=== PATIENT | female | born 1950 | race Caucasian/White ===

== ENCOUNTER 2020-04-23 21:49 | Emergency (ER) | payer BC, SELFPAY ==
[2020-04-23 21:50] VITALS: BP 128/68; PULSE 90; RESP 16; TEMP 36.6; O2SAT 99; BMI 27.7
--- NOTE | 2020-04-23 21:51 | ED.RN ---
family member phone # for updates [phone]
--- NOTE | 2020-04-23 22:13 | ED.VIS.GEN ---
History of Present Illness Chief Complaint: General Illness Informant: Patient Onset: Hours - 24-36 Context: Gradual Onset Timing: Continuous Quality: achy Location: across low back and both hips, some lower abd Current Severity: Moderate Maximum Severity: Severe Worsened by: movement Relieved by: remaining still Associated Symptoms: R ankle pain. stiffness in neck. Narrative: Patient states for about 24 hours plus or minus she has had bloating in her abdomen, started with nausea and throwing up after eating [employer] food, she states her daughter ate it as well and she is okay, she then developed this discomfort across her low back in her lower abdomen that seems to be getting worse, in addition to spontaneous onset, gradually of pain in her right ankle which has been chronically sore and swollen since she fractured it remotely but now it is worse, as well as soreness and stiffness in her neck. She denies any injury. No fevers or chills. She is only had 1 bout of diarrhea, she has had no other bowel movements not. Time, she denies any blood or melena. She denies any hematemesis. She states she does not have abdominal pain is much as she does bloating. She was treated for urinary tract infection with 2 antibiotics that she did that she cannot remember several weeks ago, she states the symptoms that she had were bilateral lower abdominal pain worse on the right, she denies having any urinary symptoms that time, states that she was seen at the [facility] ER for that. Past Medical History - Allergies and Home Meds Allergies/Adverse Reactions: Allergies No Known Allergies Allergy (Verified 04/23/20 21:51) Primary Care Physician: NOT,DEFINED [NON-STAFF] - Review of Systems General: Denies: Chills, Fever, Sweats Eyes: Denies: Visual changes - bilaterally, Diplopia ENT: Denies: Bilateral ear pain, Rhinorrhea, Sore throat Cardiovascular: Denies: Chest pain, Palpitations Respiratory: Denies: Dyspnea, Cough, Dyspnea on exertion Gastrointestinal: Reports: Abdominal pain - and bloating, Nausea, Vomiting, Diarrhea - x1; no other BMs. Denies: Melena, Hematochezia Genitourinary: Denies: Dysuria, Hematuria, Frequency Musculoskeletal: Reports: Neck pain - sore and stiff, Back pain - low bilat, Extremity Pain - R ankle Skin: Denies: Rash, Wounds Neurological: Denies: Headache, Weakness, Numbness Physical Exam Vital Signs/Narrative: Vital Signs Temp Pulse Resp BP Pulse Ox 04/23/20 21:50 97.9 F 90 16 128/68 H 99 Inital Vital Signs reviewed: Yes General: Well nourished, Well developed, No Acute Distress Head: Normocephalic, Atraumatic Eyes: Perrl, EOMI ENT: Moist mucous membranes, No rhinorrhea Neck: Supple - able to range about 45 deg bilat rotation, limited due to pain, no meningismus., Nontender, No lymphadenopathy Cardiovascular: Regular rate, Regular rhythm, No murmurs Respiratory: No distress, CTA bilaterally, Chest nontender Abdomen: Soft, Nontender, Nondistended, Normal bowel sounds, No masses. Negative for: Pulsatile mass Back: Normal Inspection, - - miold diffuse bilat buttock, piriformis, pelvic brim tenderness. Negative for: CVA tenderness, Spinal tenderness Extremities: Nontender, No edema, - - painful ROM R ankle, able to move it OK. slightly warm compared w/ contralat side, no erythema. mildly swollen R ankle, pt states this is baseline for it chronically since she fx'd it remotely. Skin: Normal color, No rash Neurological: Alert, Oriented x3, Cranial nerves II-XII grossly intact, Normal Strength, Normal Sensation Psychological: Normal affect, Normal Mood Diagnostic/Tx/Re-eval Laboratory Results 04/23/20 04/23/20 04/23/20 22:30 22:30 23:45 WBC 12.1 H RBC 4.22 Hgb 12.1 Hct 37.7 MCV 89.3 MCH 28.7 MCHC 32.1 RDW Std Deviation 48.0 H RDW Coeff of Kristine 14.9 H Plt Count 166 MPV 11.1 Immature Gran % (Auto) 0.500 Neut % (Auto) 90.6 H Lymph % (Auto) 5.7 L Pershing % (Auto) 2.4 Eos % (Auto) 0.3 Baso % (Auto) 0.5 Absolute Neuts (auto) 10.9 H Absolute Lymphs (auto) 0.69 L Nucleated RBC % 0 Sodium 140 Potassium 3.4 L Chloride 108 H Carbon Dioxide 24.0 Anion Gap 8 BUN 28 H Creatinine 1.30 H Estim Creat Clear Calc 28.92 Est GFR (MDRD) Af Amer 52 L Est GFR (MDRD) Non-Af 43 L BUN/Creatinine Ratio 21.5 H Glucose 109 H Uric Acid 5.4 Calcium 9.0 Total Bilirubin 0.60 AST 35 ALT 51 Alkaline Phosphatase 108 Total Protein 7.3 Albumin 3.3 Globulin 4.0 Albumin/Globulin Ratio 0.8 L Urine Color Yellow Urine Clarity Sl. Cloudy Urine pH 6.5 Ur Specific Blakeslee 1.010 Urine Protein 30 H Urine Glucose (UA) Normal Urine Ketones Negative Urine Occult Blood 50 H Urine Nitrite Positive H Urine Bilirubin Negative Urine Urobilinogen 1 H Ur Leukocyte Esterase 500 H Urine RBC 0-5 SEEN Urine WBC 25-50 SEEN Ur Squamous Epith Cells 0 SEEN Amorphous Sediment 1+ Urine Bacteria 1+ Urine Mucus 0 SEEN - Medical Decision Making Very odd that the patient has low back/bilateral hip pain as well as abdominal bloating, some vomiting, and some arthralgias. Foodborne illness is in the differential diagnosis, but unlikely here since she has only had one episode of mild diarrhea, and since her daughter did not have symptoms. Also could consider a reaction to MSG, but she has had [employer] food in the past without reaction. She was given Toradol, small dose, the right ankle and neck pain seems inflammatory but she has no findings of a septic arthritis clinically, and the Toradol did help the pain and she was able to move better. Gout is in the differential diagnosis although less likely, she did not have significant clinical findings of that, but she did just have 1 major joint affected. Her uric acid is within normal limits, this does not rule it out, but I still think it is less likely. There is a mild leukocytosis. Eventually we were able to get the patient to urinate, and it is very positive for infection. Certainly this has to be related to some of her symptoms, likely her lower abdominal symptoms. She is not clinically septic and her vital signs are normal. Urine is cultured and will place her on antibiotics for the next week. I am also going to prescribe her a wait and see prescription for prednisone, just a 5-day burst. If the antibiotic and time do not help her pains, then I recommend trying the prednisone, but I did advise her that putting her on a steroid oral anti-inflammatory does suppress the immune system, which I prefer not to do while she has an acute infection if possible. She understands, she was given a prescription and advised to follow-up closely. ED Disposition - Plan for ED Patient: Disposition: Home or Assisted Living Diagnosis: Urinary tract infection, Arthritis of right ankle Instructions: ED Bladder Infection, Female (Adult), ED Arthralgia Prescriptions: Smz/Tmp Ds [Bactrim Ds] 1 tab PO BID #14 tab Prescription Printed Prednisone [Deltasone] 40 mg PO DAILY #10 tab Prescription Printed Referrals: Doctor,Your [STAFF PHYSICIAN] - 3-5 Days (to reevaluate and review culture results to ensure you are on appropriate antibiotic for this infection) Additional Instructions: Take the antibiotic first. You may try Tylenol and an occasional dose of ibuprofen for your pains. If you continue to have severe pains, you may fill and take the prednisone prescription. Once you start it, take it until it is gone. It can suppress your immune system temporarily, so only use it if you feel you need it.
[2020-04-23] MEDS: Ondansetron 4 MG/2 ML Vial IV (22:28)
[2020-04-23] MEDS: Dicyclomine 10 MG Capsule 20 MG PO (22:28)
[2020-04-23] MEDS: Ketorolac 15 MG/ML Vial IV (22:28)
[2020-04-23 22:41] LABS: Absolute Lymphocyte Count 0.69 X10^3/uL (0.83-4.51); Absolute Neutrophil Count 10.9 X10^3/uL (2.0-7.7); Basophil# 0.06 X10^3/uL; Basophil% 0.5 % (0-1); Eosinophil# 0.04 X10^3/uL; Eosinophils% 0.3 % (0-5); Hematocrit 37.7 % (37-47); Hemoglobin 12.1 g/dL (12.0-15.0); Lymphocyte # 0.69 X10^3/ul (4.0); Lymphocyte % 5.7 % (19-41); Mean Corp Hgb Conc 32.1 g/dL (32-36); Mean Corpuscular Hgb 28.7 pg (27.0-32.0); Mean Corpuscular Volume 89.3 fL (81-99); Mean Platelet Vol. 11.1 fl (6.2-12.0); Monocyte# 0.29 X10^3/uL; Monocyte% 2.4 % (0-10); NRBC Flagged by Analyzer 0 % (0-5); Neutrophil # 10.94 X10^3/uL (2.7-7.7); Neutrophil % 90.6 % (47-70); Platelet Count 166 K/mm3 (150-450); RBC Distribution Width CV 14.9 % (11.6-14.6); Red Blood Count 4.22 M/mm3 (4.2-5.4); White Blood Count 12.1 K/mm3 (4.4-11.0)
[2020-04-23 23:01] LABS: ALB/GLOB Ratio 0.8 RATIO (0.9-2.4); AST(SGOT) 35 U/L (15-37); Alanine Aminotransfer ALT/SGPT 51 U/L (13-56); Albumin, Serum 3.3 g/dL (3.2-5.0); Alkaline Phosphatase 108 U/L (45-117); Anion Gap 8 (5-15); BUN 28 mg/dL (7-18); BUN/Creat Ratio 21.5 RATIO (10-20); Chloride 108 mmol/L (98-107); EST Glomerular Filtration Rate 43 mL/min (>60); Est Glom Filt Rate - Afr Amer 52 mL/min (>60); Estimated Creatinine Clearance 28.92 ml/min; Glucose 109 mg/dL (74-106); Potassium 3.4 mmol/L (3.5-5.1); Protein, Total 7.3 g/dL (6.4-8.2); Sodium Level 140 mmol/L (136-145); Uric Acid 5.4 mg/dL (2.6-6.0)
[2020-04-23 23:55] LABS: Color, Urine Yellow (Yellow); Glucose, Dipstick Normal (Normal); Ketone-Dipstick Negative (Negative); Leukocyte Esterase-Dipstick 500 /ul (Negative); Mucous, Urine 0 SEEN /hpf (<or=2+); Nitrite-Dipstick Positive (Negative); Occult Blood-Urine 50 /ul (Negative); Protein-Dipstick 30 mg/dl (Negative); Squamous Epithelial Cells - UA 0 SEEN /hpf (5-10); Urine Bilirubin Dipstick Negative (Negative); Urine Clarity Sl. Cloudy (Clear); Urine Urobilinogen 1 mg/dl (Normal); Urine pH 6.5 (5.0 - 8.0)
[2020-04-24 00:25] LABS: White Blood Cells 25-50 SEEN /hpf (0-5)
[2020-04-24 00:26] LABS: Amorphous Sediment 1+; Bacteria 1+ /hpf (None Seen); Red Blood Cells-Urine 0-5 SEEN /hpf (0-5)
[2020-04-24] MEDS: Smz/Tmp Ds Tablet 1 TABLET PO (01:00)
[2020-04-24 01:28] VITALS: RESP 16
== END 2020-04-24 01:38 | disposition home or self-care (01) ==
PROVIDERS: Emergency Provider Emergency Medicine
DX: N39.0 Urinary tract infection, site not specified (principal); M19.071 Primary osteoarthritis, right ankle and foot; M43.6 Torticollis; R11.2 Nausea with vomiting, unspecified; R19.7 Diarrhea, unspecified
CPT/HCPCS: 80053; 81001; 84550; 85025; 87077; 87086; 87088; 87186; 96361; 96374; 96375; 99284; J7040; A4216; J2405

== ENCOUNTER 2020-04-30 23:57 | Inpatient (IN) | payer BC, MEDICARE, SELFPAY ==
[2020-04-30 23:59] VITALS: BP 137/79; PULSE 95; RESP 16; TEMP 37.4; O2SAT 99; BMI 25.4
[2020-05-01] VITALS (7 sets, daily range): BP systolic 132–144; BP diastolic 65–80; PULSE 68–96; RESP 16–18; TEMP 36.3–37.8; O2SAT 96–97; BMI 28.0
--- NOTE | 2020-05-01 00:14 | ED.DCSUM_ITS ---
History of Present Illness Chief Complaint: Lower Extremity Injury Informant: Patient Onset: 11-28 Context: Gradual Onset Timing: Continuous Quality: ache Location: R ankle Current Severity: Moderate Maximum Severity: Severe Worsened by: movement, trying to WB Relieved by: remaining still Associated Symptoms: none. see below. Narrative: Patient was seen here last week for right ankle pain in addition to other complaints, she was treated for urinary tract infection, she returns for worsening right ankle pain. She states all of the other symptoms are resolved with the antibiotic she was prescribed, except when she walks and has pains in her legs, sometimes she gets a spasm of pain in her low back but it is short- lived. Additionally, she has edema in both of her lower extremities now which she did not have before, specifically the left 1. She states now she is unable to walk because of all of this, so presented by EMS tonight as a result. She denies fevers or chills or feeling poorly generally, her abdominal pain that she had is resolved after taking antibiotic, and she has no more neck stiffness that she complained of before. She takes no anticoagulants or any other prescription medications at this time. She injured this right ankle long ago, fracturing it, she had some hardware, it was subsequently removed and that was all remotely. She has had some chronic issues with this ankle since then, but not to this extent. Past Medical History - Allergies and Home Meds Allergies/Adverse Reactions: Allergies No Known Allergies Allergy (Verified 05/01/20 00:11) Primary Care Physician: Care Physician,No Primary [Primary Care Provider] - Past Medical History: None Surgical History: - - R ankle ORIF and subsequent hardware removal Lives: With Family Smoking Status: Former smoker Review of Systems General: Denies: Chills, Fever, Malaise, Sweats Eyes: Denies: Visual changes - bilaterally, Diplopia ENT: Denies: Rhinorrhea, Sore throat Cardiovascular: Denies: Chest pain, Palpitations Respiratory: Denies: Dyspnea, Cough, Dyspnea on exertion Gastrointestinal: Denies: Abdominal pain, Nausea, Vomiting, Diarrhea, Melena, Hematochezia Genitourinary: Denies: Dysuria, Hematuria, Frequency Musculoskeletal: Reports: Back pain - intermittent, Swelling, Extremity Pain Skin: Denies: Rash, Wounds Neurological: Denies: Headache, Weakness, Numbness Physical Exam Vital Signs/Narrative: Vital Signs Temp Pulse Resp BP Pulse Ox 04/30/20 23:59 99.4 F H 95 16 137/79 H 99 Inital Vital Signs reviewed: Yes General: Well nourished, Well developed, No Acute Distress Head: Normocephalic, Atraumatic Eyes: Perrl, EOMI ENT: Moist mucous membranes, No rhinorrhea Neck: Supple, Nontender Cardiovascular: Regular rate, Regular rhythm, No murmurs. Negative for: Tachycardia Respiratory: No distress, CTA bilaterally, Chest nontender Abdomen: Soft, Nontender, Nondistended, Normal bowel sounds Back: Nontender, Normal Inspection Extremities: Tenderness - R ankle, Edema - 2+ BLE to prox shins, symmetric although a little worse around R ankle, - - Severe pain with any attempted movement of the right ankle. In no distress when resting. Excellent range of motion of all other joints of all 4 extremities. Skin: Rash - Erythema that is mild, blanching, around the right ankle which is new compared with last visit. More warm than the surrounding leg and foot. Neurological: Alert, Oriented x3, Cranial nerves II-XII grossly intact, Normal Strength, Normal Sensation Psychological: Normal affect, Normal Mood Diagnostic/Tx/Re-eval Laboratory Tests 05/01/20 05/01/20 05/01/20 Range/Units 01:10 00:26 00:26 WBC (4.4-11.0) K/mm3 RBC (4.2-5.4) M/mm3 Hgb (12.0-15.0) g/dL Hct (37-47) % MCV (81-99) fL MCH (27.0-32.0) pg MCHC (32-36) g/dL RDW Std Deviation (35.1-43.9) fl RDW Coeff of Kristine (11.6-14.6) % Plt Count (150-450) K/mm3 MPV (6.2-12.0) fl Immature Gran % (Auto) Neut % (Auto) Lymph % (Auto) Hitchcock % (Auto) Eos % (Auto) Baso % (Auto) Absolute Neuts (auto) (2.0-7.7) X10^3/uL Absolute Lymphs (auto) (0.83-4.51) X10^3/uL Total Counted (MANUAL DIFF) Neutrophils % (Manual) (47-70) % Band Neutrophils % (0-5) % Lymphocytes % (Manual) (19-41) % Monocytes % (Manual) (0-10) % Metamyelocytes % (0-1) % Nucleated RBC % Diff Path Review Reactive Lymphocytes Platelet Estimate (ADEQ) RBC Morphology (NORM C&C) NORMAL ESR (0-30) mm/hr PT 13.8 (11.7-14.9) SECONDS INR 1.1 APTT 35.0 (24.1-36.2) Seconds Sodium (136-145) mmol/L Potassium (3.5-5.1) mmol/L Chloride (98-107) mmol/L Carbon Dioxide (21.0-32.0) mmol/L Anion Gap (5-15) BUN (7-18) mg/dL Creatinine (0.55-1.02) mg/dL Estim Creat Clear Calc ml/min Est GFR (MDRD) Af Amer (>60) mL/min Est GFR (MDRD) Non-Af (>60) mL/min BUN/Creatinine Ratio (10-20) RATIO Glucose (74-106) mg/dL Uric Acid (2.6-6.0) mg/dL Calcium (8.5-10.1) mg/dL C-React Prot Ext Range 130.00 H (0.0-3.0) mg/L Fluid Crystals Cancelled Fluid Crystal Source Cancelled Fl Crystal Path Review Cancelled Synovial Source Cancelled Synovial Color Cancelled Synovial Appearance Cancelled Synovial Volume Cancelled Synovial Viscosity Cancelled Synovial WBC Cancelled Synovial RBC Cancelled Synovial Tot Cell Ct Cancelled Synov Polynuclear WBCs Cancelled Synov Mononuclear WBCs Cancelled Synovial Neutrophils Cancelled Synovial Lymphocytes Cancelled Synovial Monocytes Cancelled Synovial Plasma Cells Cancelled Synovial Other Cells Cancelled Synovial Polynuclear % Cancelled Synovial Mononuclear % Cancelled Synovial Path Comment Cancelled 05/01/20 05/01/20 05/01/20 Range/Units 00:26 00:26 00:26 WBC 17.0 H (4.4-11.0) K/mm3 RBC 3.91 L (4.2-5.4) M/mm3 Hgb 10.9 L (12.0-15.0) g/dL Hct 34.8 L (37-47) % MCV 89.0 (81-99) fL MCH 27.9 (27.0-32.0) pg MCHC 31.3 L (32-36) g/dL RDW Std Deviation 48.9 H (35.1-43.9) fl RDW Coeff of Kristine 15.2 H (11.6-14.6) % Plt Count 447 (150-450) K/mm3 MPV 9.8 (6.2-12.0) fl Immature Gran % (Auto) BUSINESS SERVICES ADMINISTRATOR Neut % (Auto) BUSINESS SERVICES ADMINISTRATOR Lymph % (Auto) BUSINESS SERVICES ADMINISTRATOR Hitchcock % (Auto) BUSINESS SERVICES ADMINISTRATOR Eos % (Auto) BUSINESS SERVICES ADMINISTRATOR Baso % (Auto) BUSINESS SERVICES ADMINISTRATOR Absolute Neuts (auto) 12.4 H (2.0-7.7) X10^3/uL Absolute Lymphs (auto) 3.20 (0.83-4.51) X10^3/uL Total Counted 100 (MANUAL DIFF) Neutrophils % (Manual) 70 (47-70) % Band Neutrophils % 3 (0-5) % Lymphocytes % (Manual) 19 (19-41) % Monocytes % (Manual) 6 (0-10) % Metamyelocytes % 2 H (0-1) % Nucleated RBC % BUSINESS SERVICES ADMINISTRATOR Diff Path Review May foll Reactive Lymphocytes RARE Platelet Estimate ADEQUATE (ADEQ) RBC Morphology NORM C+C (NORM C&C) NORMAL ESR 96 H (0-30) mm/hr PT (11.7-14.9) SECONDS INR APTT (24.1-36.2) Seconds Sodium 139 (136-145) mmol/L Potassium 3.3 L (3.5-5.1) mmol/L Chloride 108 H (98-107) mmol/L Carbon Dioxide 24.0 (21.0-32.0) mmol/L Anion Gap 7 (5-15) BUN 14 (7-18) mg/dL Creatinine 0.70 (0.55-1.02) mg/dL Estim Creat Clear Calc 43.30 ml/min Est GFR (MDRD) Af Amer 107 (>60) mL/min Est GFR (MDRD) Non-Af 88 (>60) mL/min BUN/Creatinine Ratio 20.1 H (10-20) RATIO Glucose 117 H (74-106) mg/dL Uric Acid 2.1 L (2.6-6.0) mg/dL Calcium 8.7 (8.5-10.1) mg/dL C-React Prot Ext Range (0.0-3.0) mg/L Fluid Crystals Fluid Crystal Source Fl Crystal Path Review Synovial Source Synovial Color Synovial Appearance Synovial Volume Synovial Viscosity Synovial WBC Synovial RBC Synovial Tot Cell Ct Synov Polynuclear WBCs Synov Mononuclear WBCs Synovial Neutrophils Synovial Lymphocytes Synovial Monocytes Synovial Plasma Cells Synovial Other Cells Synovial Polynuclear % Synovial Mononuclear % Synovial Path Comment - Medical Decision Making Given that her right ankle arthritis did not improve with time as it would likely have with an inflammatory arthritis nor the antibiotic that she was given for her infection, and now that she has developed a more worrisome exam of the right ankle and erythema/warmth, my concern is that she could have a septic joint or crystal induced arthritis. Given her age and history, less likely something like gonococcus. Regardless, a right arthrocentesis is indicated for further study of synovial fluid at this time. Blood cultures were also obtained. She does have a low-grade temperature here although she has not been feeling febrile. Patient consents to this and understands all this. Arthrocentesis performed from the anteromedial joint space approach, landmarks are obscured by the significant amount of edema that she has around this joint, limiting the procedure which I discussed with the patient. Only blood was able to be aspirated, certainly hemarthrosis is in the differential diagnosis although she has no reason to have that since she is not on any antiplatelet or anticoagulants, and is not thrombocytopenic. My concern is for possible septic arthritis given the development of worsening leukocytosis now showing immature cells and a low uric acid level which does not rule out crystal induced arthritis, but I am more concerned about infection. Discussed with Dr. Aragon, who agrees with admitting her to medicine, he will see her first thing in the morning (it is currently between 1 and 1:30 AM), and he is okay with empiric antibiotics. Vancomycin begun. She was given morphine prior to the procedure which significantly helped her pain. ESR and CRP are pending, I will get an x-ray as well, and have also add coags. ESR and CRP are both significantly elevated, consistent with infection but not specific for it. 3 view x-ray series of the right ankle on my interpretation shows significant chronic arthritic changes, narrowing of the joint space explaining the difficulty of the arthrocentesis, and no acute fractures. Procedures Procedure(s): Arthrocentesis right ankle -- She was anesthetized with 3 cc of plain 1% lidocaine after isopropanol prep, followed by Betadine prep and placement of 18-gauge 1.5 inch needle into the joint space from the anteromedial approach. Only blood was able to be aspirated from the joint space, about 5 cc. Several redirections were attempted to ensure placement in the joint space given that only blood was able to be aspirated. A dressing was placed afterwards, the patient tolerated it very well with no pain after the lidocaine was placed. No complications. ED Disposition - Plan for ED Patient: Disposition: [facility] Diagnosis: Inability to ambulate due to right ankle or foot, Acute right ankle pain, Septic arthritis of right ankle Referrals: Care Physician,No Primary [Primary Care Provider] -
[2020-05-01] MEDS: 0.9% Normal Saline 1,000 ML 150 ML IV (00:29)
[2020-05-01] MEDS: Morphine 4 MG/ML Syringe IV (00:29)
[2020-05-01 00:40] LABS: Hematocrit 34.8 % (37-47); Hemoglobin 10.9 g/dL (12.0-15.0); Mean Corp Hgb Conc 31.3 g/dL (32-36); Mean Corpuscular Hgb 27.9 pg (27.0-32.0); Mean Platelet Vol. 9.8 fl (6.2-12.0); POSITIVE COUNT YES; POSITIVE MORPHOLOGY YES; Platelet Count 447 K/mm3 (150-450); RBC Distribution Width CV 15.2 % (11.6-14.6); RBC Distribution Width SD 48.9 fl (35.1-43.9); Red Blood Count 3.91 M/mm3 (4.2-5.4)
[2020-05-01 00:49] LABS: Differential Indicated MANUAL DIFF
[2020-05-01 00:55] LABS: Anion Gap 7 (5-15); BUN 14 mg/dL (7-18); BUN/Creat Ratio 20.1 RATIO (10-20); Calcium,Total 8.7 mg/dL (8.5-10.1); Chloride 108 mmol/L (98-107); EST Glomerular Filtration Rate 88 mL/min (>60); Est Glom Filt Rate - Afr Amer 107 mL/min (>60); Glucose 117 mg/dL (74-106); Potassium 3.3 mmol/L (3.5-5.1); Sodium Level 139 mmol/L (136-145); Uric Acid 2.1 mg/dL (2.6-6.0)
[2020-05-01 01:00] LABS: Metamyelocyte 2 % (0-1); Neutrophil-Band 3 % (0-5); Neutrophil-Segmented 70 % (47-70); Scan Smear per Review Criteria MANUAL DIFF; Total Cells Counted 100 (MANUAL DIFF)
[2020-05-01 01:01] LABS: Absolute Neutrophil Count 12.4 X10^3/uL (2.0-7.7); Lymphocyte 19 % (19-41); Monocyte 6 % (0-10); Platelet Estimate ADEQUATE (ADEQ); Red Cell Morphology NORM C+C NORMAL (NORM C&C)
[2020-05-01 01:02] LABS: Reactive Lymphocyte RARE
[2020-05-01 01:32] LABS: Erythrocyte Sedimentation Rate 96 mm/hr (0-30)
[2020-05-01 01:40] LABS: International Normalized Ratio 1.1; Prothrombin Time (Protime)PT. 13.8 SECONDS (11.7-14.9)
--- NOTE | 2020-05-01 01:40 | RAD_ITS ---
STUDY: X-RAY - RIGHT ANKLE REASON FOR EXAM: Female, 69 years old. right ankle pain x 1 week. pt states she broke the same ankle 30 years ago. unable to bear weight on ankle. TECHNIQUE: 3 view(s) of the ankle. COMPARISON: None. 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 There is flattening of the talus likely due to avascular necrosis. Advanced degenerative changes are noted in the subtalar joints. The talonavicular, calcaneocuboid and tarsal articulations are normal. The soft tissue structures are unremarkable. 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 There is flattening of the talus likely due to avascular necrosis. Advanced degenerative changes are noted in the subtalar joints. Electronically Signed: Mile Blake, at 1:58 EST Tel , Service support ,
[2020-05-01] MEDS: Vancomycin IV 1,000 MG/200 ML BAG 200 MG IV (01:51)
--- NOTE | 2020-05-01 02:00 | HP.PCM_ITS ---
Problem List (1) Acute right ankle pain Status: Acute History of Present Illness Date of Admission: 05/01/20 Chief Complaint: Right ankle pain - 8 days The patient is a 69 year old F with no significant past medical history who comes in with an 8-day history of right ankle pain. Patient admits to a history of right ankle fracture several years ago. She presented to the ED on 04/23/20 with multiple complaints including abdominal bloating, nausea, vomiting as well as low back, abdominal pain and ankle pain. She was finally managed as acute UTI and prescribed Bactrim. Urine cultures came back positive for staph aureus, however resistant to Bactrim. Since her discharge from the ED, patient stated that she has been living with her daughter and has been having difficulty moving around because of pain in her right ankle. Her lower extremity has become more swollen. She has associated back and neck pain/spasms from hobbling around Vitals in the ED showed T-max of 100.1F, heart rate 84, blood pressure 144/80, respiratory rate 18, SPO2 96% on room air. WBC count 17.0, with predominant neutrophilia. Hemoglobin 10.9, dropped from 12.1 about 8 days ago, platelet count 447. ESR 96. Sodium is 139, potassium 3.4, chloride 108, bicarbonate 24, BUN 14, creatinine 0.73 glucose 117, uric acid 2.1, AST 34, ALT 75, ALP 143, ALP 130 X-ray of the ankle shows severe degenerative changes noted in the tibiotalar joint. There is flattening of the talus likely due to avascular necrosis. Advanced degenerative changes are noted in the subtalar joint. Needle aspiration of the right ankle joint was done in the ED - showed bloody aspirate. Sample sent for microbiology. 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 Denies: Anorexia, Fever, Night Sweats, Weight Change Eyes: Denies: Blurred vision, Cataracts, Conjunctivae Inflammation, Pain, Redness, Vision Change HEENT: Denies: Difficulty Hearing, Difficulty Swallowing, Head Aches, Hearing Changes, Sinus Congestion, Sinus Drainage Cardiovascular: Reports: Edema. Denies: Chest Pain, Claudication, Light Headedness, Orthopnea, Palpitations, Paroxysmal Noc. Dyspnea Respiratory: Denies: Cough, Shortness of Breath, Shortness of breath at rest, Shortness of breath upon exertion, Sputum production Gastrointestinal: Denies: Abdominal Pain, Constipation, Hematemesis, Hematochezia, Nausea, Vomiting Genitourinary: Denies: Dysuria, Frequency, Incontinence Gynecological: Denies: Vaginal discharge, Vaginal itching Musculoskeletal: Denies: Joint Pain, Joint stiffness, Joint swelling, Joint Tenderness Skin: Denies: Rash, Wounds Neurological: Denies: Difficulty swallowing, Focal weakness, Numbness, Tingling Psychiatric: Denies: Anxiety, Depression, Homicidal Ideations, Suicidal Ideations Hematologic/ Lymphatic: Denies: Easy Bruising, Easy Bleeding VTE Information - Inpt Only VTE Present on Admission: No VTE Pharm Prophylaxis ordered?: Yes Patient Problems: Active and Suspected Problems Inability to ambulate due to right ankle or foot (Acute) Acute right ankle pain (Acute) Septic arthritis of right ankle (Acute) - Physical Exam Vitals/I&O's: Vital Signs Temp Pulse Resp BP Pulse Ox 100.1 F H 84 18 144/80 H 97 05/01/20 01:53 05/01/20 01:53 05/01/20 01:53 05/01/20 01:53 05/01/20 01:53 Oxygen Delivery Method Room Air Weight: 65 kg Body Mass Index (BMI) 25.4 General: Alert, Oriented x3, Cooperative, - - in pain HEENT: Atraumatic, PERRLA, EOMI, Normocephalic Oral: Moist Mucosa Neck: Supple, No JVD, Negative Carotid Bruits Lungs: Clear to auscultation, Normal air movement Cardiovascular: Regular rate, Regular Rhythm, Normal S1, Normal S2, No murmurs Abdomen: Bowel Sounds Present, Soft, Non Tender, Non-Distended, No Hepato- splenomegaly, Passing Flatus Extremities: Edema - bilateral pedal edema +3-4, right ankle more swollen than left Skin: No rashes Musculoskeletal: No Tenderness to Palpation of Joints or Extremities Lymphatic: No Cervical, Supraclavicular, or Inguinal Adenopathy Neurological: Cranial nerves II-XII grossly intact, Neuro grossly intact Psych/Mental Status: Normal Affect, Appropriate Microbiology Past 72 Hours 05/01/20 01:10 Fluid - Synovial (joint) Gram Stain - Preliminary Laboratory Results 05/01/20 00:26: WBC 17.0 H, RBC 3.91 L, Hgb 10.9 L, Hct 34.8 L, MCV 89.0, MCH 27.9, MCHC 31.3 L, RDW Std Deviation 48.9 H, RDW Coeff of Kristine 15.2 H, Plt Count 447, MPV 9.8, Immature Gran % (Auto) BUSINESS EXCELLENCE MANAGER, Neut % (Auto) BUSINESS EXCELLENCE MANAGER, Lymph % (Auto) BUSINESS EXCELLENCE MANAGER, [place] % (Auto) BUSINESS EXCELLENCE MANAGER, Eos % (Auto) BUSINESS EXCELLENCE MANAGER, Baso % (Auto) BUSINESS EXCELLENCE MANAGER, Absolute Neuts (auto) 12.4 H, Absolute Lymphs (auto) 3.20, Total Counted 100, Neutrophils % (Manual) 70, Band Neutrophils % 3, Lymphocytes % (Manual) 19, Monocytes % (Manual) 6, Metamyelocytes % 2 H, Nucleated RBC % BUSINESS EXCELLENCE MANAGER, Diff Path Review May foll, Reactive Lymphocytes RARE, Platelet Estimate ADEQUATE, RBC Morphology NORM C+C 05/01/20 00:26: Sodium 139, Potassium 3.3 L, Chloride 108 H, Carbon Dioxide 24.0, Anion Gap 7, BUN 14, Creatinine 0.70, Estim Creat Clear Calc 43.30, Est GFR (MDRD) Af Amer 107, Est GFR (MDRD) Non-Af 88, BUN/Creatinine Ratio 20.1 H, Glucose 117 H, Uric Acid 2.1 L, Calcium 8.7 05/01/20 00:26: ESR 96 H 05/01/20 00:26: C-React Prot Ext Range 130.00 H 05/01/20 00:26: PT 13.8, INR 1.1, APTT 35.0 05/01/20 01:10: Fluid Crystals Cancelled, Fluid Crystal Source Cancelled, Fl Crystal Path Review Cancelled, Synovial Source Cancelled, Synovial Color Cancelled, Synovial Appearance Cancelled, Synovial Volume Cancelled, Synovial Viscosity Cancelled, Synovial WBC Cancelled, Synovial RBC Cancelled, Synovial Tot Cell Ct Cancelled, Synov Polynuclear WBCs Cancelled, Synov Mononuclear WBCs Cancelled, Synovial Neutrophils Cancelled, Synovial Lymphocytes Cancelled, Synovial Monocytes Cancelled, Synovial Plasma Cells Cancelled, Synovial Other Cells Cancelled, Synovial Polynuclear % Cancelled, Synovial Mononuclear % Canc elled, Synovial Path Comment Cancelled Current Medications Sodium Chloride () 1,000 mls @ 150 mls/hr IV .[id number] HUSAM Last Admin: 05/01/20 00:29 Dose: 150 mls/hr Documented by: Vancomycin HCl (Vancomycin) 1,000 mg in 200 mls @ 200 mls/hr IV X1 ONE Stop: 05/01/20 02:29 Last Admin: 05/01/20 01:51 Dose: 200 mls/hr Documented by: Assessment/Plan All Active Problems Inability to ambulate due to right ankle or foot (Acute) Acute right ankle pain (Acute) Septic arthritis of right ankle (Acute) 1. Right ankle swelling/pain suggestive of septic arthritis versus reactive arthritis X-ray of the right ankle show severe degenerative changes noted in the tibiotalar joint. There is flattening of the talus likely secondary to avascular necrosis. Advanced degenerative changes are noted in the subtalar joint. Status post right ankle joint aspiration. ESR is 96, CRP 130 Started on IV vancomycin, will add IV Unasyn; follow-up on blood cultures and wound aspirate Podiatry consulted from the ED, continue with pain control 2. Bilateral leg swelling, concerning for possible right sided CHF/hypoalbuminemia( Albumin is 2.4) We will rule out acute DVT with stat Doppler ultrasound of lower extremity Check BNPep, UA, 2d-ECHO Elevate lower extremities 3. Leukocytosis likely secondary to recent steroid use versus right ankle infection WBC count 17.0, follow-up on blood cultures, continue IV antibiotics 4. Anemia, drop in hemoglobin from 12.1 on 1-10.9, unclear etiology We will check iron stores, occult blood 5. Hypokalemia/hypomagnesium, will replace, recheck in a.m. 6. DVT PPx- Heparin SC Inpatient E&M: 26011 Init Hosp L3
[2020-05-01 02:20] LABS: AST(SGOT) 34 U/L (15-37); Alanine Aminotransfer ALT/SGPT 75 U/L (13-56); Albumin, Serum 2.4 g/dL (3.2-5.0); Alkaline Phosphatase 145 U/L (45-117); Bilirubin, Direct 0.14 mg/dL (0.00-0.30); Globulin 4.7 g/dL (2.2-4.2); Protein, Total 7.1 g/dL (6.4-8.2)
[2020-05-01] MEDS: Acetaminophen 500 MG Tablet 1000 MG PO (02:46)
--- NOTE | 2020-05-01 03:36 | ECHOD_ITS ---
Reason For Study: Dyspnea/SOB Procedure This was a 2D Doppler, Color Flow transthoracic echocardiogram. Patient scanned supine due to muscle spasms. Exam performed portable in patient room. Left Ventricle Normal LV size. Left ventricular systolic function is normal. The estimated ejection fraction is 60 %. Stage 1 diastolic dysfunction. No regional wall motion abnormalities noted. Right Ventricle Normal RV size. Normal systolic function. Atria Normal left atrium. Normal right atrium. Mitral Valve Normal mitral valve. Tricuspid Valve Normal tricuspid valve. Mild tricuspid valve insufficiency. Pulmonary artery systolic pressure is 24 mmHg. Aortic Valve Trisinus/trileaflet aortic valve. Pulmonic Valve The pulmonic valve is not well visualized. Great Vessels Normal aortic root. The pulmonary artery is normal size. Normal inferior vena cava. Pericardium/Pleural No pericardial effusion. MMode/2D Measurements & Calculations LVIDd: 4.4 cm IVSd: 1.3 cm Ao root diam: 3.5 cm LVIDs: 2.6 cm LVPWd: 1.1 cm LA dimension: 3.3 cm FS: 40.1 % LAV(MOD-bp): 35.3 ml LA A4 area: 15.1 cm2 RA A4 area: 13.9 cm2 LAV(MOD-bp) Indexed: 21.1 ml/m2 LAV(MOD-sp2): 33.1 ml LAV(MOD-sp4): 37.8 ml Time Measurements MV dec time: 0.24 sec Doppler Measurements & Calculations MV E max james: 82.1 cm/sec Lat Peak E' James: 10.4 cm/sec Med Peak E' James: 6.9 cm/sec MV A max james: 85.1 cm/sec E/E' lat: 7.9 E/E' med: 11.9 MV E/A: 0.96 MV V2 max: 95.2 cm/sec MV P1/2t max james: 93.6 cm/sec Ao V2 max: 144.7 cm/sec MV max P.7 mmHg MV P1/2t: 66.2 msec Ao max P.4 mmHg MV V2 mean: 57.0 cm/sec MV dec slope: 413.7 cm/sec2 MV mean P.5 mmHg MVA(P1/2t): 3.3 cm2 MV V2 VTI: 26.1 cm LV V1 max: 136.0 cm/sec PA V2 max: 113.6 cm/sec TR max james: 224.7 cm/sec LV V1 max P.4 mmHg TR max P.2 mmHg Interpretation Summary Normal LV size. Left ventricular systolic function is normal. The estimated ejection fraction is 60 %. Stage 1 diastolic dysfunction. Ordering Physician: Tosin Torres Performed By: Esvin Myers RCS
--- NOTE | 2020-05-01 03:36 | VDLE_ITS ---
Reason For Study: Swelling RIGHT LEFT GSV is normal. GSV is normal. CFV is compressible, spontaneous, phasic, CFV is compressible, spontaneous, phasic, competent and demonstrates normal competent, and demonstrates normal augmentation. augmentation. FV is compressible, spontaneous, phasic, FV is compressible, spontaneous, phasic, competent and demonstrates normal competent and demonstrates normal augmentation. augmentation. POP V is compressible, spontaneous, phasic, POP V is compressible, spontaneous, phasic, competent and demonstrates normal competent and demonstrates normal augmentation. augmentation. T/P Trunk is compressible. T/P Trunk is compressible. PTV is compressible. PTV is compressible. RT PerV is compressible. LT PerV is compressible. Acute deep vein thrombosis is noted in the Acute deep vein thrombosis is noted in the right Gastroc vein. left Gastroc vein. Procedure This is a venous duplex using B-mode, color flow and spectral Doppler. Exam performed portable in patient room. A preliminary report was called and/or faxed to [facility]3 RN. Interpretation Summary Acute deep venous thrombosis bilateral gastrocnemius veins. No evidence for proximal progression. Patent and compressible bilateral great saphenous veins Ordering Physician: Tosin Torres Performed By: Kristina Pichardo RVT
[2020-05-01 03:41] LABS: Platelet Count 455 K/mm3 (150-450); RET-HE 29.4 pg (30-35); Reticulocyte Count 1.49 % (0.5-1.5)
[2020-05-01 04:01] LABS: Iron 22 ug/dL (50-170); Iron Binding Capacity,Total 205 ug/dL (250-450); Magnesium 1.8 mg/dL (1.6-2.6); PERCENT IRON SATURATION 10.7 % (15.0-55.0)
[2020-05-01] MEDS: 0.9% Saline Lock 10 ML Syringe IV (04:11)
[2020-05-01] MEDS: Morphine 2 MG/ML Syringe IV (04:11)
--- NOTE | 2020-05-01 04:16 | PCM.RX.CS ---
Consult Pharmacy has been consulted to manage selected antiobiotic: Vancomycin Type of Consult: New start Suspected Infection: Skin/Soft tissue Prior Doses of Antibiotics Received/Current Regimen: Medications Vancomycin HCl 500 mg in 100 mls @ 100 mls/hr IV Q12H HUSAM Discontinued Medications Vancomycin HCl (Vancomycin) 1,000 mg in 200 mls @ 200 mls/hr IV X1 ONE Stop: 05/01/20 02:29 Last Admin: 05/01/20 02:51 Dose: Infused Labs: Sodium 139 mmol/L (136-145) 05/01/20 00:26 Potassium 3.3 mmol/L (3.5-5.1) L 05/01/20 00:26 Chloride 108 mmol/L (98-107) H 05/01/20 00:26 Carbon Dioxide 24.0 mmol/L (21.0-32.0) 05/01/20 00:26 Anion Gap 7 (5-15) 05/01/20 00:26 BUN 14 mg/dL (7-18) 05/01/20 00:26 Creatinine 0.70 mg/dL (0.55-1.02) 05/01/20 00:26 Est GFR (MDRD) Af Amer 107 mL/min (>60) 05/01/20 00:26 Est GFR (MDRD) Non-Af 88 mL/min (>60) 05/01/20 00:26 BUN/Creatinine Ratio 20.1 RATIO (10-20) H 05/01/20 00:26 Glucose 117 mg/dL (74-106) H 05/01/20 00:26 Microbiology: Microbiology 05/01/20 02:19 Mucosa - Nose SARS-CoV-2 Antigen (Rapid) - Final 05/01/20 01:10 Fluid - Synovial (joint) Gram Stain - Preliminary Weight used for dosin.1 kg Estimated Creatinine Clearance: 43.3 Goal Trough: 15-20 mcg/mL Pharmacy Plan for Drug Dosing: Pharmacy Service will continue to monitor and adjust dosing as required. Follow-Up Labs: Trough Vancomycin Labs to be done on [date and time ordered]: 05/02/20 @1330
[2020-05-01 04:55] LABS: BNP,B-Type NATRIURETIC PEPTIDE 13.9 pg/mL (0-100)
[2020-05-01 05:55] LABS: Absolute Neutrophil Count 13.3 X10^3/uL (2.0-7.7); Basophil# 0.07 X10^3/uL; Basophil% 0.4 % (0-1); Eosinophil# 0.13 X10^3/uL; Eosinophils% 0.8 % (0-5); Hematocrit 30.9 % (37-47); Hemoglobin 9.7 g/dL (12.0-15.0); Mean Corp Hgb Conc 31.4 g/dL (32-36); Mean Corpuscular Hgb 27.7 pg (27.0-32.0); Mean Corpuscular Volume 88.3 fL (81-99); Mean Platelet Vol. 9.9 fl (6.2-12.0); Monocyte# 0.98 X10^3/uL; Monocyte% 5.8 % (0-10); NRBC Flagged by Analyzer 0 % (0-5); Neutrophil # 13.33 X10^3/uL (2.7-7.7); Neutrophil % 78.4 % (47-70); Platelet Count 398 K/mm3 (150-450); RBC Distribution Width CV 14.9 % (11.6-14.6); RBC Distribution Width SD 48.6 fl (35.1-43.9)
[2020-05-01] MEDS: Heparin Injection (Vial) 5,000 UNIT/ML VIAL 5000 UNIT SC (06:06)
[2020-05-01 06:38] LABS: ALB/GLOB Ratio 0.5 RATIO (0.9-2.4); AST(SGOT) 38 U/L (15-37); Alanine Aminotransfer ALT/SGPT 68 U/L (13-56); Albumin, Serum 2.1 g/dL (3.2-5.0); Alkaline Phosphatase 132 U/L (45-117); Anion Gap 7 (5-15); BUN 12 mg/dL (7-18); BUN/Creat Ratio 26.2 RATIO (10-20); Chloride 108 mmol/L (98-107); Creatinine, Serum 0.46 mg/dL (0.55-1.02); EST Glomerular Filtration Rate 143 mL/min (>60); Est Glom Filt Rate - Afr Amer 173 mL/min (>60); Globulin 4.1 g/dL (2.2-4.2); Glucose 114 mg/dL (74-106); Potassium 3.8 mmol/L (3.5-5.1); Protein, Total 6.2 g/dL (6.4-8.2); Sodium Level 137 mmol/L (136-145)
[2020-05-01 07:10] LABS: Color, Urine Yellow (Yellow); Glucose, Dipstick Normal (Normal); Ketone-Dipstick Negative (Negative); Leukocyte Esterase-Dipstick 100 /ul (Negative); Nitrite-Dipstick Positive (Negative); Occult Blood-Urine 25 /ul (Negative); Protein-Dipstick Negative (Negative); Urine Bilirubin Dipstick Negative (Negative); Urine Clarity Sl. Cloudy (Clear); Urine Urobilinogen 4 mg/dl (Normal)
[2020-05-01 07:51] LABS: Pathologist Comment May follow
--- NOTE | 2020-05-01 07:57 | MRI_ITS ---
STUDY: MRI RIGHT ANKLE WITHOUT CONTRAST REASON FOR EXAM: Female, 69 years old. rt ankle infection TECHNIQUE: Standardized fat and water weighted pulse sequences were obtained in all 3 orthogonal planes. COMPARISON: None. FINDINGS: Diffuse skin thickening and edema of subcutaneous kidneys fat consistent with cellulitis. No loculated fluid collection to suggest abscess. Normal posterior tibialis tendon. Normal flexor digitorum longus tendon. Normal flexor hallucis longus tendon. Normal peroneus longus and brevis tendons. Normal tibialis anterior tendon. Normal extensor hallucis longus tendon. Normal extensor digitorum longus tendons. Normal Achilles tendon and teno-osseous insertion. Normal plantar fascia. Normal plantar calcaneal tubercles. Normal intrinsic muscles of the rearfoot. Normal distal tibiofibular syndesmotic ligamentous complex. Normal lateral ligamentous complex. Normal subtalar ligaments and sinus tarsi. Normal deltoid ligamentous complexes. Normal plantar calcaneonavicular (spring) ligament. Severe tibiotalar arthrosis with irregular joint space narrowing, osteophyte formation, subchondral edema and subchondral cyst formation. Normal talar dome. Moderate arthrosis of the anterior subtalar joint and severe arthrosis of the posterior subtalar joint. Normal talonavicular articulation. Normal calcaneocuboid articulation. Normal navicular-cuneiform articulations. MRI/Lower Ext Joint Only (Routine) IMPRESSION: Cellulitis but no MR evidence of abscess or osteomyelitis. Severe tibiotalar and subtalar joint arthrosis. Electronically Signed: Cooper España MD at 13:31 EST Tel , Service support ,
--- NOTE | 2020-05-01 08:00 | PCM.CONS.GEN ---
Reason for Consult Date of Consultation: 05/01/20 Reason for Consultation: Right ankle pain History of Present Illness: The patient is a 69 year old female presented to ER overnight for worsening right ankle pain. There is concern about possible septic right ankle. Patient relates ~30 years ago she broke her ankle rock climbing, relates she had it fixed and casted, relates she had hardware removed shortly after the surgery 30 years ago. Patient relates she has not had any problems with the ankle until ~1 week ago. She was recently in the ER 1 week ago with multiple complaints, and it was noted she did have a UTI, was discharged on oral Bactrim, culture showed staph aureus resistant to Bactrim. Patient presented back to the ER overnight for worsening right ankle pain. She relates she is not able to walk on it. She works at [employer] for the past 19 years and stands all day. WBC is trending up, now at 17.0, ESR elevated at 96; uric acid is low at 2.1. Right ankle xrays have been obtained and showed significant degenerative changes of the ankle and subtalar joints. She relates she always has some swelling to the ankle. Patient had temp of 100.1F overnight, now temp is 98.0 F. She denies any redness to the ankle, no wounds, no drainage. Patient has been admitted for further workup. There is concern for CHF, as well as possible blood clot; patient currently undergoing further workup, per medicine team. Patient relates other than her right ankle, she feels good. Past Medical History Allergies No Known Allergies Allergy (Verified 05/01/20 00:11) Home Medications: Ambulatory Orders Medication Instructions Recorded Smz/Tmp Ds [Bactrim Ds] 1 tab PO BID #14 tab 04/24/20 Surgical History: - - R ankle ORIF and subsequent hardware removal, urolift, salpingectomy for ectopic Psychiatric History: No pertinent psych hx HEAD OF BIOLOGY History: - - salpingectomy for ectopic Lives: With Family Smoking Status: Former smoker Tobacco Use: Non-smoker Alcohol: None Drugs: None - *Family History Maternal History Items: Heart Disease Paternal History Items: No pertinent history Review of Systems Constitutional: Reports: Fever. Denies: Anorexia, Chills Cardiovascular: Denies: Chest Pain Respiratory: Denies: Shortness of Breath Gastrointestinal: Denies: Nausea, Vomiting Musculoskeletal: Reports: - - Right ankle pain, she also relates to some neck pain Skin: Denies: Wounds Patient Problems: Active and Suspected Problems Inability to ambulate due to right ankle or foot (Acute) Acute right ankle pain (Acute) Septic arthritis of right ankle (Acute) - Physical Exam Vitals/I&O's: Vital Signs Temp Pulse Resp BP Pulse Ox 98.0 F 96 16 136/65 H 97 05/01/20 03:45 05/01/20 03:45 05/01/20 03:45 05/01/20 03:45 05/01/20 03:45 Oxygen Delivery Method Room Air Weight: 65.1 kg Body Mass Index (BMI) 28.0 Intake and Output for Last 24 Hours 04/29/20 04/30/20 05/01/20 23:59 23:59 23:59 Intake Total 954.5 / 954.5 Output Total 150 / 150 Balance 804.5 / 804.5 General: Alert, Oriented x3, Cooperative, No apparent distress Extremities: No clubbing, No cyanosis, Capillary Refill Less than 3 Seconds, No Calf Tenderness, Edema - bilateral lower extremity edema with right noted to be some worse than left, Peripheral Pulses Normal Skin: - - There are no open lesions, no visible abscess, no cellulitis, no streaking, no necrosis, no fluctuance to the foot or ankle bilateral. Musculoskeletal: Tenderness - POP to the right ankle, no other pain to the right foot or leg, or to the left foot, ankle or leg., - - She is able to move toes on the right but has difficulity moving right ankle; there is limited right ankle ROM Microbiology Past 72 Hours 05/01/20 02:19 Mucosa - Nose SARS-CoV-2 Antigen (Rapid) - Final 05/01/20 01:10 Fluid - Synovial (joint) Gram Stain - Preliminary Laboratory Results 05/01/20 00:26: WBC 17.0 H, RBC 3.91 L, Hgb 10.9 L, Hct 34.8 L, MCV 89.0, MCH 27.9, MCHC 31.3 L, RDW Std Deviation 48.9 H, RDW Coeff of Kristine 15.2 H, Plt Count 447, MPV 9.8, Immature Gran % (Auto) TRUCKING SUPERVISOR, Neut % (Auto) TRUCKING SUPERVISOR, Lymph % (Auto) TRUCKING SUPERVISOR, [place] % (Auto) TRUCKING SUPERVISOR, Eos % (Auto) TRUCKING SUPERVISOR, Baso % (Auto) TRUCKING SUPERVISOR, Absolute Neuts (auto) 12.4 H, Absolute Lymphs (auto) 3.20, Total Counted 100, Neutrophils % (Manual) 70, Band Neutrophils % 3, Lymphocytes % (Manual) 19, Monocytes % (Manual) 6, Metamyelocytes % 2 H, Nucleated RBC % TRUCKING SUPERVISOR, Diff Path Review May foll, Reactive Lymphocytes RARE, Platelet Estimate ADEQUATE, RBC Morphology NORM C+C 05/01/20 00:26: Sodium 139, Potassium 3.3 L, Chloride 108 H, Carbon Dioxide 24.0, Anion Gap 7, BUN 14, Creatinine 0.70, Estim Creat Clear Calc 43.30, Est GFR (MDRD) Af Amer 107, Est GFR (MDRD) Non-Af 88, BUN/Creatinine Ratio 20.1 H, Glucose 117 H, Uric Acid 2.1 L, Calcium 8.7 05/01/20 00:26: ESR 96 H 05/01/20 00:26: C-React Prot Ext Range 130.00 H 05/01/20 00:26: PT 13.8, INR 1.1, APTT 35.0 05/01/20 00:26: Total Bilirubin 0.40, Direct Bilirubin 0.14, AST 34, ALT 75 H, Alkaline Phosphatase 145 H, Total Protein 7.1, Albumin 2.4 L, Globulin 4.7 H 05/01/20 00:26: Retic Count 1.49, Immature Retic Fraction 18.90 H, Retic Hgb Equivalent 29.4 L 05/01/20 00:26: Magnesium 1.8, Iron 22 L, TIBC 205 L, Iron Saturation 10.7 L 05/01/20 00:26: B-Natriuretic Peptide 13.9 05/01/20 01:10: Fluid Crystals Cancelled, Fluid Crystal Source Cancelled, Fl Crystal Path Review Cancelled, Synovial Source Cancelled, Synovial Color Cancelled, Synovial Appearance Cancelled, Synovial Volume Cancelled, Synovial Viscosity Cancelled, Synovial WBC Cancelled, Synovial RBC Cancelled, Synovial Tot Cell Ct Cancelled, Synov Polynuclear WBCs Cancelled, Synov Mononuclear WBCs Cancelled, Synovial Neutrophils Cancelled, Synovial Lymphocytes Cancelled, Synovial Monocytes Cancelled, Synovial Plasma Cells Cancelled, Synovial Other Cells Cancelled, Synovial Polynuclear % Cancelled, Synovial Mononuclear % Cancelled, Synovial Path Comment Cancelled 05/01/20 05:24: WBC 17.0 H, RBC 3.50 L, Hgb 9.7 L, Hct 30.9 L, MCV 88.3, MCH 27.7, MCHC 31.4 L, RDW Std Deviation 48.6 H, RDW Coeff of Kristine 14.9 H, Plt Count 398, MPV 9.9, Immature Gran % (Auto) 4.600 H, Neut % (Auto) 78.4 H, Lymph % (Auto) 10.0 L, [place] % (Auto) 5.8, Eos % (Auto) 0.8, Baso % (Auto) 0.4, Absolute Neuts (auto) 13.3 H, Absolute Lymphs (auto) 1.70, Nucleated RBC % 0 05/01/20 05:24: Sodium 137, Potassium 3.8, Chloride 108 H, Carbon Dioxide 22.0, Anion Gap 7, BUN 12, Creatinine 0.46 L, Estim Creat Clear Calc 37.60, Est GFR (MDRD) Af Amer 173, Est GFR (MDRD) Non-Af 143, BUN/Creatinine Ratio 26.2 H, Glucose 114 H, Calcium 8.0 L, Total Bilirubin 0.40, AST 38 H, ALT 68 H, Alkaline Phosphatase 132 H, Total Protein 6.2 L, Albumin 2.1 L, Globulin 4.1, Albumin/Globulin Ratio 0.5 L 05/01/20 06:00: Urine Color Yellow, Urine Clarity Sl. Cloudy, Urine pH 6.0, Ur Specific [place] 1.020, Urine Protein Negative, Urine Glucose (UA) Normal, Urine Ketones Negative, Urine Occult Blood 25 H, Urine Nitrite Positive H, Urine Bilirubin Negative, Urine Urobilinogen 4 H, Ur Leukocyte Esterase 100 H 05/01/20 07:45: Fluid Crystals Pending, Fluid Crystal Source Pending, Synovial Source Pending, Synovial Color Pending, Synovial Appearance Pending, Synovial WBC Pending, Synovial RBC Pending, Synovial Tot Cell Ct Pending, Synovial Path Comment Pending 05/01/20 07:45: S.aureus Protein A PCR Pending, MRSA (PCR) Pending Current Medications Acetaminophen (Acetaminophen 325 Mg Tablet) 650 mg PO Q6H PRN PRN PRN Reason: Pain Score 1-10/Temp > 100.7 F Heparin Sodium (Porcine) (Heparin Injection (Vial) 5,000 Unit/Ml Vial) 5,000 unit SC Q8 [facility] Last Admin: 05/01/20 06:06 Dose: 5,000 unit Documented by: Vancomycin IV Pharmacy to Dose (1 ea/ Sodium Chloride) 500 mls @ 250 mls/hr IV PRN PRN; Protocol PRN Reason: Rx to Dose Ampicillin Sodium/Sulbactam (Sodium 3 gm/ Sodium Chloride) 112 mls @ 150 mls/hr IV Q8 [facility] Last Infusion: 05/01/20 05:19 Dose: Infused Documented by: Sodium Chloride () 250 mls @ 15 mls/hr IV .[id number] PRN PRN Reason: Saline Flush Sodium Chloride () 250 mls @ 15 mls/hr IV .[id number] PRN PRN Reason: Additional IVPB Infusion Vancomycin HCl () 500 mg in 100 mls @ 100 mls/hr IV Q12H [facility] Magnesium Hydroxide (Magnesium Hydroxide 30 Ml Udc) 30 ml PO DAILY PRN PRN PRN Reason: Constipation Morphine Sulfate (Morphine 2 Mg/Ml Syringe) 2 mg IV Q3H PRN PRN PRN Reason: Pain Score 6-10 Last Admin: 05/01/20 04:11 Dose: 2 mg Documented by: Oxycodone HCl (Oxycodone 5 Mg Tablet) 5 mg PO Q4H PRN PRN PRN Reason: Pain Score 4-5 Prochlorperazine Edisylate (Prochlorperazine 10 Mg/2 Ml Vial) 5 mg IV Q4H PRN PRN PRN Reason: Breakthrough nausea/vomiting Senna/Docusate Sodium (Senna/Docusate Sodium 1 Tablet) 2 tablet PO BID PRN PRN PRN Reason: Constipation Sodium Chloride (0.9% Saline Lock 10 Ml Syringe) 10 - 40 ml IV UD PRN PRN Reason: SALINE FLUSH Last Admin: 05/01/20 04:11 Dose: 10 ml Documented by: Assessment/Plan All Active Problems Inability to ambulate due to right ankle or foot (Acute) Acute right ankle pain (Acute) Septic arthritis of right ankle (Acute) Arthritis right ankle with pain - further workup pending 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 Right ankle xrays with significant degenerative disease post traumatic in nature with findings c/w talus AVN. There is concern of possible septic ankle arthritis given acute worsening with elevated WBC and ESR. Discussed with Dr. Vincent from ER who did ankle aspiration there overnight, gram stain with no organisms. Repeat right ankle aspiration was completed as noted below. There were several mL of aspirated joint fluid which was bloody in nature; it was sent for culture as well as joint fluid analysis. MRI right ankle was ordered for further evaluation as well. CHF and possible DVT workup in progress per medicine team. No immediate plans for OR, but we discussed possible surgical options on right ankle pending results of the above. Continue with broad spectrum IV antibiotics at this time - patient on Unasyn and Vanc. No weightbearing right foot/ankle, keep foot/ankle elevated. Podiatry will follow closely, thank you for consultation. Right ankle aspiration: Discussed with patient repeat aspiration. Reviewed procedure, possible benefits vs risks, goals and expectations. The consent form was reviewed with her and she freely signed it. After consent was obtained the right ankle was cleansed with 70% Isopropyl alcohol. A total of 10mL of 1% Lidocaine plain was given as a local block to the anterior ankle. After anesthesia obtained the right ankle was aspirated with 18 gauge needle, this was placed to the medial ankle, and several mLs of bloody aspirate obtained, I was not able to make out any clear evidence of karen purulence or visible crystals seen at this time on visual exam of the fluid. The aspirate was sent to the lab for further evaluation - culture as well as joint fluid analysis. A dressing was applied which consisted of gauze, kerlix and kika. Patient tolerated well with no complications.
[2020-05-01] MEDS: Lidocaine 1% (30 ml sdv) 30 ML Vial INFILT (08:15)
[2020-05-01 08:26] LABS: RBC /Synovial Fluid 1.328 10^6/uL (0); Synovial Fld Mononuclear WBC % 15.6 %; Synovial Fld Polynuclear WBC # 1.048 10^3/uL; Synovial Fld Polynuclear WBC % 84.4 %
[2020-05-01 08:28] LABS: AUTO B FLUID DILUENT BKGD CT WBC <0.1 RBC <0.01 (W<.1,R<.01); Appearance /Synovial Fluid Turbid (CLEAR); Body Fluid QC Type(s) BF1Q; Color / Synovial Fluid Red (Pale Yellow); Source / Synovial Fluid RT ANKLE; Source- Body Fluid SYNOVIAL
--- NOTE | 2020-05-01 11:53 | PCM.PN.HOSP ---
Patient Problems: Active and Suspected Problems Inability to ambulate due to right ankle or foot (Acute) Acute right ankle pain (Acute) Septic arthritis of right ankle (Acute) Subjective: Patient seen and examined. She was admitted with a complaint of right ankle pain 4 days prior to admission. Patient says she had an ankle fracture about 30 years ago but had always been able to ambulate on her right ankle. However a few days ago, she could not ambulate on the ankle at all and the pain was gradually getting worse. Her right leg also became swollen so she came into the ED. On admission she was found to be febrile with temperature of 100.1 Fahrenheit. X-ray showed severe degenerative changes in the tibiotalar joint with flattening of the talus likely due to avascular necrosis. She had needle aspiration of the right ankle done in the ED which showed a bloody aspirate and sample sent for microbiology. Patient has no complaints this morning. Pain in her right ankle is well controlled. Review of systems is otherwise negative. She has remained hemodynamically stable. Podiatry on board. Vitals/I&O's: Vital Signs Temp Pulse Resp BP Pulse Ox 97.4 F L 81 16 133/78 H 97 05/01/20 08:59 05/01/20 08:59 05/01/20 08:59 05/01/20 08:59 05/01/20 08:59 Oxygen Delivery Method Room Air Weight: 143 lb 8.335 oz Body Mass Index (BMI) 28.0 Intake and Output for Last 24 Hours 04/29/20 04/30/20 05/01/20 23:59 23:59 23:59 Intake Total 954.5 / 954.5 Output Total 150 / 150 Balance 804.5 / 804.5 General: Alert, Oriented x3, Cooperative, No apparent distress HEENT: Atraumatic, PERRLA, EOMI, Normocephalic Oral: Moist Mucosa Neck: Supple, No JVD, Negative Carotid Bruits Lungs: Clear to auscultation, Normal air movement Cardiovascular: Regular rate, Regular Rhythm, Normal S1, Normal S2, No murmurs Abdomen: Bowel Sounds Present, Soft, Non Tender, Non-Distended, No Hepato-splenomegaly Extremities: No clubbing, No cyanosis, No edema, Capillary Refill Less than 3 Seconds Skin: No rashes, No breakdown Musculoskeletal: - - RLE wrapped up in bandage at the ankle Lymphatic: No Cervical, Supraclavicular, or Inguinal Adenopathy Neurological: Cranial nerves II-XII grossly intact, Motor Exam 5/5 strength throughout Psych/Mental Status: Normal Affect, Appropriate, Alert and oriented to time, place, person, mood and affect Microbiology Past 72 Hours 05/01/20 01:10 Fluid - Synovial (joint) Gram Stain - Final 05/01/20 02:19 Mucosa - Nose SARS-CoV-2 Antigen (Rapid) - Final Laboratory Results 05/01/20 00:26: WBC 17.0 H, RBC 3.91 L, Hgb 10.9 L, Hct 34.8 L, MCV 89.0, MCH 27.9, MCHC 31.3 L, RDW Std Deviation 48.9 H, RDW Coeff of Kristine 15.2 H, Plt Count 447, MPV 9.8, Immature Gran % (Auto) OPENSTACK 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 ARCHITECT, Neut % (Auto) OPENSTACK CLOUD CONSULTING ARCHITECT, Lymph % (Auto) OPENSTACK CLOUD CONSULTING ARCHITECT, [place] % (Auto) OPENSTACK CLOUD CONSULTING ARCHITECT, Eos % (Auto) OPENSTACK CLOUD CONSULTING ARCHITECT, Baso % (Auto) OPENSTACK CLOUD CONSULTING ARCHITECT, Absolute Neuts (auto) 12.4 H, Absolute Lymphs (auto) 3.20, Total Counted 100, Neutrophils % (Manual) 70, Band Neutrophils % 3, Lymphocytes % (Manual) 19, Monocytes % (Manual) 6, Metamyelocytes % 2 H, Nucleated RBC % OPENSTACK CLOUD CONSULTING ARCHITECT, Diff Path Review May foll, Reactive Lymphocytes RARE, Platelet Estimate ADEQUATE, RBC Morphology NORM C+C 05/01/20 00:26: Sodium 139, Potassium 3.3 L, Chloride 108 H, Carbon Dioxide 24.0, Anion Gap 7, BUN 14, Creatinine 0.70, Estim Creat Clear Calc 43.30, Est GFR (MDRD) Af Amer 107, Est GFR (MDRD) Non-Af 88, BUN/Creatinine Ratio 20.1 H, Glucose 117 H, Uric Acid 2.1 L, Calcium 8.7 05/01/20 00:26: ESR 96 H 05/01/20 00:26: C-React Prot Ext Range 130.00 H 05/01/20 00:26: PT 13.8, INR 1.1, APTT 35.0 05/01/20 00:26: Total Bilirubin 0.40, Direct Bilirubin 0.14, AST 34, ALT 75 H, Alkaline Phosphatase 145 H, Total Protein 7.1, Albumin 2.4 L, Globulin 4.7 H 05/01/20 00:26: Retic Count 1.49, Immature Retic Fraction 18.90 H, Retic Hgb Equivalent 29.4 L 05/01/20 00:26: Magnesium 1.8, Iron 22 L, TIBC 205 L, Iron Saturation 10.7 L 05/01/20 00:26: B-Natriuretic Peptide 13.9 05/01/20 01:10: Fluid Crystals Cancelled, Fluid Crystal Source Cancelled, Fl Crystal Path Review Cancelled, Synovial Source Cancelled, Synovial Color Cancelled, Synovial Appearance Cancelled, Synovial Volume Cancelled, Synovial Viscosity Cancelled, Synovial WBC Cancelled, Synovial RBC Cancelled, Synovial Tot Cell Ct Cancelled, Synov Polynuclear WBCs Cancelled, Synov Mononuclear WBCs Cancelled, Synovial Neutrophils Cancelled, Synovial Lymphocytes Cancelled, Synovial Monocytes Cancelled, Synovial Plasma Cells Cancelled, Synovial Other Cells Cancelled, Synovial Polynuclear % Cancelled, Synovial Mononuclear % Cancelled, Synovial Path Comment Cancelled 05/01/20 05:24: WBC 17.0 H, RBC 3.50 L, Hgb 9.7 L, Hct 30.9 L, MCV 88.3, MCH 27.7, MCHC 31.4 L, RDW Std Deviation 48.6 H, RDW Coeff of Kristine 14.9 H, Plt Count 398, MPV 9.9, Immature Gran % (Auto) 4.600 H, Neut % (Auto) 78.4 H, Lymph % (Auto) 10.0 L, [place] % (Auto) 5.8, Eos % (Auto) 0.8, Baso % (Auto) 0.4, Absolute Neuts (auto) 13.3 H, Absolute Lymphs (auto) 1.70, Nucleated RBC % 0 05/01/20 05:24: Sodium 137, Potassium 3.8, Chloride 108 H, Carbon Dioxide 22.0, Anion Gap 7, BUN 12, Creatinine 0.46 L, Estim Creat Clear Calc 37.60, Est GFR (MDRD) Af Amer 173, Est GFR (MDRD) Non-Af 143, BUN/Creatinine Ratio 26.2 H, Glucose 114 H, Calcium 8.0 L, Total Bilirubin 0.40, AST 38 H, ALT 68 H, Alkaline Phosphatase 132 H, Total Protein 6.2 L, Albumin 2.1 L, Globulin 4.1, Albumin/Globulin Ratio 0.5 L 05/01/20 06:00: Urine Color Yellow, Urine Clarity Sl. Cloudy, Urine pH 6.0, Ur Specific [place] 1.020, Urine Protein Negative, Urine Glucose (UA) Normal, Urine Ketones Negative, Urine Occult Blood 25 H, Urine Nitrite Positive H, Urine Bilirubin Negative, Urine Urobilinogen 4 H, Ur Leukocyte Esterase 100 H 05/01/20 07:45: Fluid Crystals SEE PATH REV, Fluid Crystal Source SYNOVIAL, Fl Crystal Path Review Will follow, Synovial Source RT ANKLE, Synovial Color Red, Synovial Appearance Turbid, Synovial WBC 1.2420 H, Synovial RBC 1.328 H, Synovial Tot Cell Ct 1.2420 H, Synov Polynuclear WBCs 1.048, Synovial Polynuclear % 84.4, Synovial Mononuclear % 15.6, Synovial Path Comment May follow 05/01/20 07:45: S.aureus Protein A PCR Pending, MRSA (PCR) Pending Diagnostic Data Ankle X-Ray 05/01/20 01:40 IMPRESSION: Severe degenerative changes are noted in the tibiotalar joint. There is flattening of the talus likely due to avascular necrosis. Advanced degenerative changes are noted in the subtalar joints. Electronically Signed: Mile Blake, at 1:58 EST Tel , Service support , Current Medications Acetaminophen (Acetaminophen 325 Mg Tablet) 650 mg PO Q6H PRN PRN PRN Reason: Pain Score 1-10/Temp > 100.7 F Heparin Sodium (Porcine) (Heparin Injection (Vial) 5,000 Unit/Ml Vial) 5,000 unit SC Q8 [facility] 234 BEDS AT [facility] Last Admin: 05/01/20 06:06 Dose: 5,000 unit Documented by: Vancomycin IV Pharmacy to Dose (1 ea/ Sodium Chloride) 500 mls @ 250 mls/hr IV PRN PRN; Protocol PRN Reason: Rx to Dose Ampicillin Sodium/Sulbactam (Sodium 3 gm/ Sodium Chloride) 112 mls @ 150 mls/hr IV Q8 [facility] 234 BEDS AT THE [facility] Last Infusion: 05/01/20 05:19 Dose: Infused Documented by: Sodium Chloride () 250 mls @ 15 mls/hr IV .[id number] PRN PRN Reason: Saline Flush Sodium Chloride () 250 mls @ 15 mls/hr IV .[id number] PRN PRN Reason: Additional IVPB Infusion Vancomycin HCl () 500 mg in 100 mls @ 100 mls/hr IV Q12H [facility] Magnesium Hydroxide (Magnesium Hydroxide 30 Ml Udc) 30 ml PO DAILY PRN PRN PRN Reason: Constipation Morphine Sulfate (Morphine 2 Mg/Ml Syringe) 2 mg IV Q3H PRN PRN PRN Reason: Pain Score 6-10 Last Admin: 05/01/20 04:11 Dose: 2 mg Documented by: Oxycodone HCl (Oxycodone 5 Mg Tablet) 5 mg PO Q4H PRN PRN PRN Reason: Pain Score 4-5 Prochlorperazine Edisylate (Prochlorperazine 10 Mg/2 Ml Vial) 5 mg IV Q4H PRN PRN PRN Reason: Breakthrough nausea/vomiting Senna/Docusate Sodium (Senna/Docusate Sodium 1 Tablet) 2 tablet PO BID PRN PRN PRN Reason: Constipation Sodium Chloride (0.9% Saline Lock 10 Ml Syringe) 10 - 40 ml IV UD PRN PRN Reason: SALINE FLUSH Last Admin: 05/01/20 04:11 Dose: 10 ml Documented by: STROKE Vital Signs/Narrative: Vital Signs Temp Pulse Resp BP Pulse Ox 05/01/20 08:59 97.4 F L 81 16 133/78 H 97 Medical Necessity - Tobacco Use Smoking Status: Former smoker Tobacco Use: Non-smoker Assessment/Plan All Active Problems Inability to ambulate due to right ankle or foot (Acute) Acute right ankle pain (Acute) Septic arthritis of right ankle (Acute) # Right ankle post traumatic arthritis pain is now well controlled. on iV vancomycin and unasyn due to concerns about septic arthritis had needle aspiration done in the ED yesterday; sample sent for cultures MRI of the right ankle ordered per podiatry PT/OT on board, fall precautions #Bilateral DVT Duplex of hte LEs positive for DVT in gastrocnemius veins bilaterally will start on heparin drip; as podiatry hasnt decided about surgery or otherwise 2D echo pending. # Anemia; hb is 9.7. ws 10.9 on admission. Iron panel showed low iron of 22 with low iron saturation of 10.7 but TIBC was low. Will check ferritin as this looks like an anemia of chronic disease picture. DVT prophylaxis: not indicated as she is being started on heparin drip for DVT Inpatient E&M: [id number] Subs Hosp L2
[2020-05-01] MEDS: oxyCODONE 5 MG Tablet PO (12:45)
[2020-05-01 13:06] LABS: Ferritin 493 ng/mL (8-252)
[2020-05-01] MEDS: HEPARIN/D5w 25,000 UNITS 25,000 UNITS/250 ML IV.SOLN. 8 UNITS IV (13:45)
[2020-05-01] MEDS: Vancomycin IV 500 MG/100 ML BAG 100 MG IV (14:13)
[2020-05-01 14:35] LABS: M R Staph aureus DNA By PCR Negative (Negative); Probe Check PASS; Specimen Processing Control PASS; Staph aureus DNA By PCR NEGATIVE (Negative)
[2020-05-01] MEDS: Acetaminophen 325 MG Tablet 650 MG PO (21:50)
[2020-05-02 02:29] LABS: Absolute Lymphocyte Count 2.14 X10^3/uL (0.83-4.51); Basophil# 0.11 X10^3/uL; Basophil% 0.7 % (0-1); Eosinophils% 0.6 % (0-5); Hematocrit 33.2 % (37-47); Hemoglobin 10.9 g/dL (12.0-15.0); Lymphocyte # 2.14 X10^3/ul (4.0); Lymphocyte % 13.5 % (19-41); Mean Corp Hgb Conc 32.8 g/dL (32-36); Mean Corpuscular Hgb 28.7 pg (27.0-32.0); Mean Corpuscular Volume 87.4 fL (81-99); Mean Platelet Vol. 9.5 fl (6.2-12.0); Monocyte# 0.96 X10^3/uL; Monocyte% 6.1 % (0-10); NRBC Flagged by Analyzer 0 % (0-5); Neutrophil # 12.02 X10^3/uL (2.7-7.7); Platelet Count 482 K/mm3 (150-450); RBC Distribution Width CV 14.4 % (11.6-14.6); RBC Distribution Width SD 46.4 fl (35.1-43.9); White Blood Count 15.8 K/mm3 (4.4-11.0)
[2020-05-02 02:30] VITALS: BP 133/74; PULSE 80; RESP 14; TEMP 36.7; O2SAT 94
[2020-05-02 02:34] LABS: Partial Thromboplast Time 64.4 Seconds (24.1-36.2)
[2020-05-02 02:38] LABS: Anion Gap 4 (5-15); BUN 6 mg/dL (7-18); BUN/Creat Ratio 13.4 RATIO (10-20); Calcium,Total 8.7 mg/dL (8.5-10.1); Chloride 104 mmol/L (98-107); Creatinine, Serum 0.45 mg/dL (0.55-1.02); EST Glomerular Filtration Rate 147 mL/min (>60); Est Glom Filt Rate - Afr Amer 178 mL/min (>60); Glucose 113 mg/dL (74-106); Potassium 3.9 mmol/L (3.5-5.1); Sodium Level 135 mmol/L (136-145)
[2020-05-02] MEDS: Vancomycin IV 500 MG/100 ML BAG 100 MG IV ×2 (02:41→14:18)
--- NOTE | 2020-05-02 06:19 | PN_ITS ---
Patient Problems: Active and Suspected Problems Inability to ambulate due to right ankle or foot (Acute) Acute right ankle pain (Acute) Septic arthritis of right ankle (Acute) Subjective: This 69-year-old female was seen bedside for right ankle pain and follow-up of infection work-up. She denies current fever, chill, nausea, vomiting. Her appetite has returned. She relates her right ankle has mild if any pain because she has not been weightbearing. She is on IV antibiotics. Is also identified that she has bilateral lower extremity blood clots and she is undergoing treatment for that as well. - Physical Exam Vitals/I&O's: Vital Signs Temp Pulse Resp BP Pulse Ox 98.0 F 80 14 133/74 H 94 05/02/20 02:30 05/02/20 02:30 05/02/20 02:30 05/02/20 02:30 05/02/20 02:30 Oxygen Delivery Method Room Air Weight: 65.1 kg Body Mass Index (BMI) 28.0 Intake and Output for Last 24 Hours 04/30/20 05/01/20 05/02/20 23:59 23:59 23:59 Intake Total 1278.5 / 1278.5 100 / 100 Output Total 350 / 1075 1125 / 1125 Balance 928.5 / 203.5 -1025 / -1025 General: Alert, Oriented x3, Cooperative HEENT: Atraumatic Extremities: No cyanosis, Capillary Refill Less than 3 Seconds - All digits bilateral lower extremities, No Calf Tenderness - Tenderness with bilateral Palpation, Edema - Decreased bilateral lower extremity edema is apparent due to wrinkle, Peripheral Pulses Normal, - - No pain on palpation to the medial or lateral malleoli or anterior ankle joint. Mild discomfort along palpation to the posterior tibial tendon adjacent to the medial malleolus and not to the arch of the foot or Achilles. Skin: - - She is not able to passively move her ankle joint which is consistent with her advanced arthritis and talus impression due to her prior remote fracture. Passive motion of the ankle is also not noted. There is no bogginess or fluctuance on palpation. Compartments of the right lower extremity soft Musculoskeletal: Muscle Wasting, - - AROM digits x 10 Neurological: Sensory exam intact to light touch and pain Psych/Mental Status: Normal Affect, Appropriate Microbiology Past 72 Hours 05/01/20 00:30 Blood Culture (Wb) - Anticubital Right Bacteria Detection (PCR) - Preliminary Staphylococcus aureus 05/01/20 00:30 Blood Culture (Wb) - Anticubital Right Blood Culture - Preliminary 05/01/20 00:26 Blood Culture (Wb) - Anticubital Left Blood Culture - Preliminary 05/01/20 01:10 Fluid - Synovial (joint) Gram Stain - Final 05/01/20 02:19 Mucosa - Nose SARS-CoV-2 Antigen (Rapid) - Final Laboratory Results 05/01/20 05:24: Sodium 137, Potassium 3.8, Chloride 108 H, Carbon Dioxide 22.0, Anion Gap 7, BUN 12, Creatinine 0.46 L, Estim Creat Clear Calc 37.60, Est GFR (MDRD) Af Amer 173, Est GFR (MDRD) Non-Af 143, BUN/Creatinine Ratio 26.2 H, Glucose 114 H, Calcium 8.0 L, Total Bilirubin 0.40, AST 38 H, ALT 68 H, Alkaline Phosphatase 132 H, Total Protein 6.2 L, Albumin 2.1 L, Globulin 4.1, Albumin/Globulin Ratio 0.5 L 05/01/20 05:24: Ferritin 493 H 05/01/20 06:00: Urine Color Yellow, Urine Clarity Sl. Cloudy, Urine pH 6.0, Ur Specific [place] 1.020, Urine Protein Negative, Urine Glucose (UA) Normal, Urine Ketones Negative, Urine Occult Blood 25 H, Urine Nitrite Positive H, Urine Bilirubin Negative, Urine Urobilinogen 4 H, Ur Leukocyte Esterase 100 H 05/01/20 07:45: Fluid Crystals SEE PATH REV, Fluid Crystal Source SYNOVIAL, Fl Crystal Path Review Will follow, Synovial Source RT ANKLE, Synovial Color Red, Synovial Appearance Turbid, Synovial WBC 1.2420 H, Synovial RBC 1.328 H, Synovial Tot Cell Ct 1.2420 H, Synov Polynuclear WBCs 1.048, Synovial Polynuclear % 84.4, Synovial Mononuclear % 15.6, Synovial Path Comment May follow 05/01/20 07:45: S.aureus Protein A PCR NEGATIVE, MRSA (PCR) Negative 05/01/20 19:51: APTT 55.0 H 05/02/20 02:10: WBC 15.8 H, RBC 3.80 L, Hgb 10.9 L, Hct 33.2 L, MCV 87.4, MCH 28.7, MCHC 32.8, RDW Std Deviation 46.4 H, RDW Coeff of Kristine 14.4, Plt Count 482 H, MPV 9.5, Immature Gran % (Auto) 3.100 H, Neut % (Auto) 76.0 H, Lymph % (Auto) 13.5 L, [place] % (Auto) 6.1, Eos % (Auto) 0.6, Baso % (Auto) 0.7, Absolute Neuts (auto) 12.0 H, Absolute Lymphs (auto) 2.14, Nucleated RBC % 0 05/02/20 02:10: Sodium 135 L, Potassium 3.9, Chloride 104, Carbon Dioxide 27.0, Anion Gap 4 L, BUN 6 L, Creatinine 0.45 L, Estim Creat Clear Calc 37.60, Est GFR (MDRD) Af Amer 178, Est GFR (MDRD) Non-Af 147, BUN/Creatinine Ratio 13.4, Glucose 113 H, Calcium 8.7 05/02/20 02:10: APTT 64.4 H Current Medications Acetaminophen (Acetaminophen 325 Mg Tablet) 650 mg PO Q6H PRN PRN PRN Reason: Pain Score 1-10/Temp > 100.7 F Last Admin: 05/01/20 21:50 Dose: 650 mg Documented by: Heparin Sodium (Porcine) (Heparin Injection (Vial) 5,000 Unit/Ml Vial) 0 unit IV UD PRN; Protocol PRN Reason: dose adjustment Vancomycin IV Pharmacy to Dose (1 ea/ Sodium Chloride) 500 mls @ 250 mls/hr IV PRN PRN; Protocol PRN Reason: Rx to Dose Ampicillin Sodium/Sulbactam (Sodium 3 gm/ Sodium Chloride) 112 mls @ 150 mls/hr IV Q8 [facility] Last Admin: 05/02/20 05:56 Dose: 150 mls/hr Documented by: Sodium Chloride () 250 mls @ 15 mls/hr IV .[id number] PRN PRN Reason: Saline Flush Sodium Chloride () 250 mls @ 15 mls/hr IV .[id number] PRN PRN Reason: Additional IVPB Infusion Vancomycin HCl () 500 mg in 100 mls @ 100 mls/hr IV Q12H [facility] Last Infusion: 05/02/20 04:06 Dose: Infused Documented by: Heparin Sodium/Dextrose () 25,000 units in 250 mls @ 8 mls/hr IV .[id number] [facility]; Protocol Last Admin: 05/01/20 13:45 Dose: 800 units/hr, 8 mls/hr Documented by: Magnesium Hydroxide (Magnesium Hydroxide 30 Ml Udc) 30 ml PO DAILY PRN PRN PRN Reason: Constipation Morphine Sulfate (Morphine 2 Mg/Ml Syringe) 2 mg IV Q3H PRN PRN PRN Reason: Pain Score 6-10 Last Admin: 05/01/20 04:11 Dose: 2 mg Documented by: Oxycodone HCl (Oxycodone 5 Mg Tablet) 5 mg PO Q4H PRN PRN PRN Reason: Pain Score 4-5 Last Admin: 05/01/20 12:45 Dose: 5 mg Documented by: Prochlorperazine Edisylate (Prochlorperazine 10 Mg/2 Ml Vial) 5 mg IV Q4H PRN PRN PRN Reason: Breakthrough nausea/vomiting Senna/Docusate Sodium (Senna/Docusate Sodium 1 Tablet) 2 tablet PO BID PRN PRN PRN Reason: Constipation Sodium Chloride (0.9% Saline Lock 10 Ml Syringe) 10 - 40 ml IV UD PRN PRN Reason: SALINE FLUSH Last Admin: 05/01/20 04:11 Dose: 10 ml Documented by: Medical Necessity - Tobacco Use Smoking Status: Former smoker Tobacco Use: Non-smoker Assessment/Plan All Active Problems Inability to ambulate due to right ankle or foot (Acute) Acute right ankle pain (Acute) Septic arthritis of right ankle (Acute) 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 This patient is currently afebrile and vital signs stable. Right ankle xrays with significant degenerative disease post traumatic in nature with findings c/w talus AVN. At the time of admission there was a concern of possible septic ankle arthritis given acute worsening of her ankle pain with elevated WBC and ESR. MRI was reviewed without evidence of osteomyelitis or abscess formation. Subcutaneous diffuse edema is noted. Aspiration was performed in ER and repeated on the med surg floor; this was sent for culture as well as joint fluid analysis. There is no bacterial growth so far or crystals noted. The final results will be monitored. Her positive blood cultures are noted; Staphylococcus aureus. To continue with broad spectrum IV antibiotics at this time - patient on Unasyn and Vanc. It is noted she was recently seen in the emergency room on 04-23-20 for symptomatic urinary tract infection in which she was treated for staph with Bactrim. It is noted she was resistant to Bactrim. Her lower extremity edema appears to be decreasing. To continue Tobias wraps and elevation. Her bilateral DVTs are noted. Management per primary team appreciated with heparin. She is also undergoing CHF work-up. She was advised to maintain a nonweightbearing status to the right lower extremity and to use an assistive device. She would benefit from ankle-foot orthotic such as a custom Liliane brace. This was offered to her in the outpatient setting and she will follow-up after hospital discharge. Surgery of the lower extremity is not planned at this time. Podiatry will follow closely while in house. Please do not hesitate to call if you have any questions. Brenda He DPM, FACFAS [facility] [phone]
[2020-05-02 07:24] VITALS: BP 130/74; PULSE 84; RESP 16; TEMP 37.1; O2SAT 98
--- NOTE | 2020-05-02 08:15 | PCM.PN.HOSP ---
Patient Problems: Active and Suspected Problems Inability to ambulate due to right ankle or foot (Acute) Acute right ankle pain (Acute) Septic arthritis of right ankle (Acute) Reason for Visit: Right ankle pain Staph bacteremia Subjective: Patient is a 69-year-old lady admitted with right ankle pain. Subsequent evaluation in the hospital demonstrated evidence of bilateral lower extremity DVTs Patient seen complains of neck stiffness as well as significant low back pain with spasms Objective: GENERAL: cooperative HEENT: Atraumatic; EYES; Anicteric, Normal Conjunctiva NECK; supple, normal thyroid, RESPIRATORY: Diminished to auscultation CARDIOVASCULAR: Regular S1 S2, GI: soft, normoactive bowel sounds, : No Renal angle tenderness; EXTREMITIES: No edema, no clubbing, MUSCULOSKELETAL: no muscle waisting NEURO: Awake; no lateralizing signs. SKIN: No Rash PSYCH; Flat affect Vitals/I&O's: Vital Signs Temp Pulse Resp BP Pulse Ox 98.8 F 84 16 130/74 H 98 05/02/20 07:24 05/02/20 07:24 05/02/20 07:24 05/02/20 07:24 05/02/20 07:24 Oxygen Delivery Method Room Air Weight: 65.1 kg Body Mass Index (BMI) 28.0 Intake and Output for Last 24 Hours 04/30/20 05/01/20 05/02/20 23:59 23:59 23:59 Intake Total 1278.5 / 1278.5 212 / 212 Output Total 350 / 1075 1125 / 1125 Balance 928.5 / 203.5 -913 / -913 Microbiology Past 72 Hours 05/01/20 00:30 Blood Culture (Wb) - Anticubital Right Bacteria Detection (PCR) - Preliminary Staphylococcus aureus 05/01/20 00:30 Blood Culture (Wb) - Anticubital Right Blood Culture - Preliminary 05/01/20 00:26 Blood Culture (Wb) - Anticubital Left Blood Culture - Preliminary 05/01/20 01:10 Fluid - Synovial (joint) Gram Stain - Final 05/01/20 02:19 Mucosa - Nose SARS-CoV-2 Antigen (Rapid) - Final Laboratory Results 05/01/20 05:24: Ferritin 493 H 05/01/20 07:45: Fluid Crystals SEE PATH REV, Fluid Crystal Source SYNOVIAL, Fl Crystal Path Review Will follow, Synovial Source RT ANKLE, Synovial Color Red, Synovial Appearance Turbid, Synovial WBC 1.2420 H, Synovial RBC 1.328 H, Synovial Tot Cell Ct 1.2420 H, Synov Polynuclear WBCs 1.048, Synovial Polynuclear % 84.4, Synovial Mononuclear % 15.6, Synovial Path Comment May follow 05/01/20 07:45: S.aureus Protein A PCR NEGATIVE, MRSA (PCR) Negative 05/01/20 19:51: APTT 55.0 H 05/02/20 02:10: WBC 15.8 H, RBC 3.80 L, Hgb 10.9 L, Hct 33.2 L, MCV 87.4, MCH 28.7, MCHC 32.8, RDW Std Deviation 46.4 H, RDW Coeff of Kristine 14.4, Plt Count 482 H, MPV 9.5, Immature Gran % (Auto) 3.100 H, Neut % (Auto) 76.0 H, Lymph % (Auto) 13.5 L, [place] % (Auto) 6.1, Eos % (Auto) 0.6, Baso % (Auto) 0.7, Absolute Neuts (auto) 12.0 H, Absolute Lymphs (auto) 2.14, Nucleated RBC % 0 05/02/20 02:10: Sodium 135 L, Potassium 3.9, Chloride 104, Carbon Dioxide 27.0, Anion Gap 4 L, BUN 6 L, Creatinine 0.45 L, Estim Creat Clear Calc 37.60, Est GFR (MDRD) Af Amer 178, Est GFR (MDRD) Non-Af 147, BUN/Creatinine Ratio 13.4, Glucose 113 H, Calcium 8.7 05/02/20 02:10: APTT 64.4 H 05/02/20 07:45: APTT Pending Current Medications Acetaminophen (Acetaminophen 325 Mg Tablet) 650 mg PO Q6H PRN PRN PRN Reason: Pain Score 1-10/Temp > 100.7 F Last Admin: 05/01/20 21:50 Dose: 650 mg Documented by: Heparin Sodium (Porcine) (Heparin Injection (Vial) 5,000 Unit/Ml Vial) 0 unit IV UD PRN; Protocol PRN Reason: dose adjustment Vancomycin IV Pharmacy to Dose (1 ea/ Sodium Chloride) 500 mls @ 250 mls/hr IV PRN PRN; Protocol PRN Reason: Rx to Dose Ampicillin Sodium/Sulbactam (Sodium 3 gm/ Sodium Chloride) 112 mls @ 150 mls/hr IV Q8 [facility] Last Infusion: 05/02/20 07:20 Dose: Infused Documented by: Sodium Chloride () 250 mls @ 15 mls/hr IV .[id number] PRN PRN Reason: Saline Flush Sodium Chloride () 250 mls @ 15 mls/hr IV .[id number] PRN PRN Reason: Additional IVPB Infusion Vancomycin HCl () 500 mg in 100 mls @ 100 mls/hr IV Q12H [facility] Last Infusion: 05/02/20 04:06 Dose: Infused Documented by: Heparin Sodium/Dextrose () 25,000 units in 250 mls @ 8 mls/hr IV .[id number] [facility]; Protocol Last Admin: 05/01/20 13:45 Dose: 800 units/hr, 8 mls/hr Documented by: Magnesium Hydroxide (Magnesium Hydroxide 30 Ml Udc) 30 ml PO DAILY PRN PRN PRN Reason: Constipation Morphine Sulfate (Morphine 2 Mg/Ml Syringe) 2 mg IV Q3H PRN PRN PRN Reason: Pain Score 6-10 Last Admin: 05/01/20 04:11 Dose: 2 mg Documented by: Oxycodone HCl (Oxycodone 5 Mg Tablet) 5 mg PO Q4H PRN PRN PRN Reason: Pain Score 4-5 Last Admin: 05/01/20 12:45 Dose: 5 mg Documented by: Prochlorperazine Edisylate (Prochlorperazine 10 Mg/2 Ml Vial) 5 mg IV Q4H PRN PRN PRN Reason: Breakthrough nausea/vomiting Senna/Docusate Sodium (Senna/Docusate Sodium 1 Tablet) 2 tablet PO BID PRN PRN PRN Reason: Constipation Sodium Chloride (0.9% Saline Lock 10 Ml Syringe) 10 - 40 ml IV UD PRN PRN Reason: SALINE FLUSH Last Admin: 05/01/20 04:11 Dose: 10 ml Documented by: STROKE Vital Signs/Narrative: Vital Signs Temp Pulse Resp BP Pulse Ox 05/02/20 07:24 98.8 F 84 16 130/74 H 98 Medical Necessity - Tobacco Use Smoking Status: Former smoker Tobacco Use: Non-smoker Assessment/Plan All Active Problems Inability to ambulate due to right ankle or foot (Acute) Acute right ankle pain (Acute) Septic arthritis of right ankle (Acute) Patient is a 69-year-old lady admitted with right ankle pain. Subsequent evaluation in the hospital demonstrated evidence of bilateral lower extremity DVTs 1. Right ankle pain ?Secondary to arthritis. Patient had knee aspirated cultures so far negative to date. Consultation placed to both podiatry 2. Staph aureus bacteremia ?Patient had recently been diagnosed with staph UTI treated with Bactrim however culture showed resistance. Do suspect current bacteremia to be from urinary source. Patient is currently on vancomycin. Consultation placed to infectious disease -MRI with and without contrast involving the cervical thoracic as well as lumbar spine to evaluate for epidural abscess given patient significant neck and low back pain 3. Bilateral lower extremity DVT ?Patient is on heparin for now 4. Anemia - Secondary to chronic disorder monitoring H&H and transfuse if patient becomes symptomatic or hemoglobin falls below 7 Advance planning; did discuss with the patient regarding advanced directives as well as CODE STATUS. Did explain the various scenarios involved ( FULL CODE, DNR CCA, DNR CCA with no intubation, and DNR CC and what each meant) patient elected to code with CPR and intubation if warranted. Order was placed. Time spent on discussion 18 minutes. Inpatient E&M: 48427 Subs Hosp L3 Procedures: 46869 Advncd Care Plan 30 Min
[2020-05-02 08:47] LABS: Partial Thromboplast Time 56.6 Seconds (24.1-36.2)
--- NOTE | 2020-05-02 08:48 | MRI_ITS ---
STUDY: MRI THORACIC SPINE WITH AND WITHOUT CONTRAST REASON FOR EXAM: Female, 69 years old. abcess, staph infection, pain low back and neck TECHNIQUE: dotarem 13ml iv was administered for the contrast portion of the examination. COMPARISON: None. FINDINGS: Normal kyphosis of the thoracic spine. There is no substantial scoliosis. T1-2, T2-3, T3-4, T4-5, T5-6, T6-7, T7-8, T8-9, T9-10, T10-11, T11-12: Normal endplates. Normal disc hydration, heights and morphology of the corresponding intervertebral discs. Normal central canal and intervertebral neural foramina at the corresponding levels. Normal visualized thoracic cord. Normal conus medullaris that terminates at the . The soft tissue structures are unremarkable. There is no enhancing abnormality. MRI/Spine Thoracic W/WO Contrast IMPRESSION: Normal unenhanced and enhanced MRI examination of the thoracic spine. No MR evidence of discitis or osteomyelitis. Electronically Signed: Cooper España MD at 12:29 EST Tel , Service support ,
--- NOTE | 2020-05-02 08:48 | MRI_ITS ---
STUDY: MRI CERVICAL SPINE WITH AND WITHOUT CONTRAST REASON FOR EXAM: Female, 69 years old. abcess, staph infection, pain low back and neck TECHNIQUE: Standardized fat and water weighted pulse sequences were obtained in the sagittal and axial following administration of dotarem 13ml iv. COMPARISON: None FINDINGS: Normal foramen magnum and brainstem-cervical cord junction. Normal craniovertebral junction. Normal anterior atlantoaxial articulation. Normal odontoid process. Normal cervical lordosis. Normal vertebral bodies and posterior osseous elements. C2-3: Normal endplates. Normal disc height, signal and morphology. Normal central canal and intervertebral neural foramina. C3-4: Mild broad disc osteophyte complex produces mild spinal stenosis and mild bilateral neural foraminal stenosis. C4-5: Mild broad disc osteophyte complex produces mild spinal stenosis and mild bilateral neural foraminal stenosis. C5-6: Normal endplates. Normal disc height, signal and morphology. Normal central canal and intervertebral neural foramina. C6-7: Mild broad disc osteophyte complex produces mild spinal stenosis and mild bilateral neural foraminal stenosis. C7-T1: Normal endplates. Normal disc height, signal and morphology. Normal central canal and intervertebral neural foramina. Normal cervical cord. No abnormal contrast enhancement. Normal visualized soft tissue structures. MRI/Spine Cervical W/WO Contrast IMPRESSION: Mild degenerative disc disease as described above. No MR evidence of discitis or osteomyelitis. Electronically Signed: Cooper España MD at 12:23 EST Tel , Service support ,
--- NOTE | 2020-05-02 08:48 | MRI_ITS ---
STUDY: MRI LUMBAR SPINE WITH AND WITHOUT CONTRAST REASON FOR EXAM: Female, 69 years old. abcess, staph infection, pain low back and neck TECHNIQUE: Standardized fat and water weighted pulse sequences were obtained in the sagittal and axial planes. dotarem 13ml iv was administered for the contrast portion of the examination. COMPARISON: None FINDINGS: T12-L1: Normal endplates. Normal disc height, hydration and morphology. Normal bilateral facet joints. Normal central canal and bilateral lateral recesses. Normal bilateral intervertebral neural foramina. Normal lumbar lordosis. Mild dextroscoliosis of the thoracolumbar spine. Normal conus medullaris that terminates at the L2. L1-2: Small left foraminal protrusion produces mild left neural foraminal stenosis. No central spinal stenosis. L2-3: Mild bilobed disc protrusion produces mild spinal stenosis and mild bilateral neural foraminal stenosis. L3-4: Mild broad disc protrusion produces mild spinal stenosis and mild bilateral neural foraminal stenosis. L4-5: Mild broad disc protrusion produces mild spinal stenosis and mild right neural foraminal stenosis. L5-S1: Mild broad disc protrusion produces mild spinal stenosis and mild bilateral neural foraminal stenosis. Normal visualized sacral ala. Normal visualized paraspinous soft tissue structures. There is no demonstrated abnormal enhancement. MRI/Spine Lumbar W/WO Contrast IMPRESSION: Mild dextroscoliosis with mild diffuse degenerative disc disease as described above. No MR evidence of discitis or osteomyelitis. Electronically Signed: Cooper España MD at 12:18 EST Tel , Service support ,
[2020-05-02] MEDS: Morphine 2 MG/ML Syringe IV (09:10)
[2020-05-02] MEDS: 0.9% Saline Lock 10 ML Syringe IV (09:10)
--- NOTE | 2020-05-02 09:14 | NURSING ---
pt to mri, heparin stopped. dr jones aware heparin stopped for mri
[2020-05-02 12:05] VITALS: BP 118/73; PULSE 81; RESP 16; TEMP 36.8; O2SAT 97
--- NOTE | 2020-05-02 12:10 | CASEMGMT ---
RN FANNY Face to Face with patient for initial transition planning/care coordination assessment. RN CM introduced self and role at [facility]. Patient lying in bed, alert and oriented. Patient willing to participate in assessment and is able to answer all questions appropriately. Care providers, pharmacy, and demographics verified. Patient wishes to discharge home, will monitor for HHC vs SNF pending course of treatment. Patient states she has no further needs or concerns at this time. CM to follow for discharge planning needs that may arise. PCP: Patient is getting established with Dr. Linda Specialists: none Preferred Pharmacy: [facility] Insurance: [employer] Prescription Benefit: yes Living Will/HPOA: none LNOK: son, daughter Living Arrangements: Patient lives with son in a 2nd floor apartment. Had been staying with daughter at her house but bathroom is on 2nd floor. Patient states she was independent prior to coming to hospital. Transportation: daughter DME/HHC: Patient denies previous HHC or DME at home. Disposition Plan: TBD by course of treatment and progress with therapy. HHC vs SNF. Kristina LEMOS, RN, CM
[2020-05-02 13:19] LABS: Pathologist Review Reviewed
[2020-05-02 13:20] LABS: Pathologist Review Reviewed
[2020-05-02 14:04] LABS: Vancomycin, Trough Level 3.7 ug/mL (5.0-15.0)
[2020-05-02] MEDS: Acetaminophen 325 MG Tablet 650 MG PO (14:22)
[2020-05-02 14:31] VITALS: BP 126/76; PULSE 83; RESP 16; TEMP 37.6; O2SAT 97
--- NOTE | 2020-05-02 15:10 | PCM.RX.CS ---
Consult Pharmacy has been consulted to manage selected antiobiotic: Vancomycin Type of Consult: Follow-up Labs: Sodium 135 mmol/L (136-145) L 05/02/20 02:10 Potassium 3.9 mmol/L (3.5-5.1) 05/02/20 02:10 Chloride 104 mmol/L (98-107) 05/02/20 02:10 Carbon Dioxide 27.0 mmol/L (21.0-32.0) 05/02/20 02:10 Anion Gap 4 (5-15) L 05/02/20 02:10 BUN 6 mg/dL (7-18) L 05/02/20 02:10 Creatinine 0.45 mg/dL (0.55-1.02) L 05/02/20 02:10 Est GFR (MDRD) Af Amer 178 mL/min (>60) 05/02/20 02:10 Est GFR (MDRD) Non-Af 147 mL/min (>60) 05/02/20 02:10 BUN/Creatinine Ratio 13.4 RATIO (10-20) 05/02/20 02:10 Glucose 113 mg/dL (74-106) H 05/02/20 02:10 Vancomycin Trough 3.7 ug/mL (5.0-15.0) L 05/02/20 13:23 Microbiology: Microbiology 05/01/20 07:45 Aspirate - Ankle Gram Stain - Final 05/01/20 07:45 Aspirate - Ankle Wound Culture - Preliminary No growth-Final to follow 05/01/20 01:10 Fluid - Synovial (joint) Gram Stain - Final 05/01/20 01:10 Fluid - Synovial (joint) Body Fluid Culture - Preliminary No growth-Final to follow 05/01/20 00:26 Blood Culture (Wb) - Anticubital Left Blood Culture - Preliminary Staphylococcus aureus 05/01/20 00:30 Blood Culture (Wb) - Anticubital Right Bacteria Detection (PCR) - Final Staphylococcus aureus 05/01/20 00:30 Blood Culture (Wb) - Anticubital Right Blood Culture - Preliminary 05/01/20 02:19 Mucosa - Nose SARS-CoV-2 Antigen (Rapid) - Final Goal Trough: 15-20 mcg/mL Pharmacy Plan for Drug Dosing: VANCOMYCIN LEVEL RECEIVED Current Vancomycin Dose: 500mg q12h (,) Number of Doses Received: 1000mg x1, 500mg x3 Vancomycin Level: 3.7 Hours Since Last Dose: ~11 hours Renal Function: SrCr 0.45 Renal Function Trend: SrCr is decreasing (was 0.7) Lab/Micro: Vancomycin Plan/Comments: recommend increasing dose to 1000mg q12h (,) Pending Level: 05/04/20 @ 1330 Pharmacy Service will continue to monitor and adjust dosing as required. Follow-Up Labs: Trough Vancomycin - 05/04 @ 1332
--- NOTE | 2020-05-02 15:38 | PCM.HP.ID ---
Problem List (1) Septic arthritis of right ankle Status: Acute Reason for Consult: bacteremia Consulted by: Dr. Garcia History of Present Illness: The patient is a 69 year old F around 1/2, started not feeling well, chills. Came to ED, ucx with mssa, given bactrim, developed R ankle pain, severe, with worsening fever. No recent skin infections or abscess. No other joint pain but did start having severe lower back spasms. Came to ED, started on vanc/unasyn, MRIs done, seen by podiatry. Now with Bcx x2 with mssa per pcr. Full ROS performed and neg except as noted above. - Medical History Surgical History: reviewed Allergies/Adverse Reactions: Allergies No Known Allergies Allergy (Verified 05/01/20 00:11) Home Medications: Ambulatory Orders Medication Instructions Recorded Smz/Tmp Ds [Bactrim Ds] 1 tab PO BID #14 tab 04/24/20 - Social History SMOKING STATUS:: Former smoker Vital Signs Temp Pulse Resp BP Pulse Ox 99.7 F H 83 16 126/76 H 97 05/02/20 14:31 05/02/20 14:31 05/02/20 14:31 05/02/20 14:31 05/02/20 14:31 Oxygen Delivery Method Room Air Weight: 63.854 kg Body Mass Index (BMI) 28.0 Microbiology Past 72 Hours 05/01/20 07:45 Gram Stain - Final Aspirate - Ankle Wound Culture - Preliminary No growth-Final to follow 05/01/20 01:10 Gram Stain - Final Fluid - Synovial (joint) Body Fluid Culture - Preliminary No growth-Final to follow 05/01/20 00:26 Blood Culture - Preliminary Blood Culture (Wb) - Anticubital Left Staphylococcus aureus 05/01/20 00:30 Bacteria Detection (PCR) - Final Blood Culture (Wb) - Anticubital Right Staphylococcus aureus Blood Culture - Preliminary 05/01/20 02:19 SARS-CoV-2 Antigen (Rapid) - Final Mucosa - Nose Laboratory Tests Past 24 Hrs 05/01/20 05/01/20 05/01/20 00:26 07:45 19:51 WBC RBC Hgb Hct MCV MCH MCHC RDW Std Deviation RDW Coeff of Kristine Plt Count MPV Immature Gran % (Auto) Neut % (Auto) Lymph % (Auto) Lawrence % (Auto) Eos % (Auto) Baso % (Auto) Absolute Neuts (auto) Absolute Lymphs (auto) Nucleated RBC % Diff Path Review Reviewed APTT 55.0 H Sodium Potassium Chloride Carbon Dioxide Anion Gap BUN Creatinine Estim Creat Clear Calc Est GFR (MDRD) Af Amer Est GFR (MDRD) Non-Af BUN/Creatinine Ratio Glucose Calcium Fl Crystal Path Review Reviewed Vancomycin Trough 05/02/20 05/02/20 05/02/20 02:10 02:10 02:10 WBC 15.8 H RBC 3.80 L Hgb 10.9 L Hct 33.2 L MCV 87.4 MCH 28.7 MCHC 32.8 RDW Std Deviation 46.4 H RDW Coeff of Kristine 14.4 Plt Count 482 H MPV 9.5 Immature Gran % (Auto) 3.100 H Neut % (Auto) 76.0 H Lymph % (Auto) 13.5 L Lawrence % (Auto) 6.1 Eos % (Auto) 0.6 Baso % (Auto) 0.7 Absolute Neuts (auto) 12.0 H Absolute Lymphs (auto) 2.14 Nucleated RBC % 0 Diff Path Review APTT 64.4 H Sodium 135 L Potassium 3.9 Chloride 104 Carbon Dioxide 27.0 Anion Gap 4 L BUN 6 L Creatinine 0.45 L Estim Creat Clear Calc 37.60 Est GFR (MDRD) Af Amer 178 Est GFR (MDRD) Non-Af 147 BUN/Creatinine Ratio 13.4 Glucose 113 H Calcium 8.7 Fl Crystal Path Review Vancomycin Trough 05/02/20 05/02/20 07:45 13:23 WBC RBC Hgb Hct MCV MCH MCHC RDW Std Deviation RDW Coeff of Kristine Plt Count MPV Immature Gran % (Auto) Neut % (Auto) Lymph % (Auto) Lawrence % (Auto) Eos % (Auto) Baso % (Auto) Absolute Neuts (auto) Absolute Lymphs (auto) Nucleated RBC % Diff Path Review APTT 56.6 H Sodium Potassium Chloride Carbon Dioxide Anion Gap BUN Creatinine Estim Creat Clear Calc Est GFR (MDRD) Af Amer Est GFR (MDRD) Non-Af BUN/Creatinine Ratio Glucose Calcium Fl Crystal Path Review Vancomycin Trough 3.7 L - Other Studies Radiology: [] reviewed Other Studies: [] Route of nutrition/ use of supplements: [] Nutritional Intake: [] IV Site: [] Myers Catheter: [] - Physical Exam General: Alert, Oriented x3, Cooperative HEENT: Atraumatic, PERRLA, EOMI Neck: Supple, No Nodes Lungs: Clear to auscultation, Normal air movement Cardiovascular: Regular rate, Regular Rhythm Abdomen: Soft, Non Tender, Non-Distended Extremities: Edema - R ankle wrapped Skin: No rashes IV Site: Peripheral, without redness Musculoskeletal: No Tenderness to Palpation of Joints or Extremities Neurological: Cranial nerves II-XII grossly intact - Assessment/Plan Antibiotics: [] Assessment/Plan: [] Active and Suspected Problems Inability to ambulate due to right ankle or foot (Acute) Acute right ankle pain (Acute) Septic arthritis of right ankle (Acute) MSSA bacteremia per pcr with R ankle septic arthritis and recent mssa in ucx - ankle and urine likely represent hematogenous spread, unclear source. Cont vanc/unasyn for now. Having back spasms, but MRI neg for spine involvement. Will get repeat bcx today. TTE showed no veg. Will follow, thank you
--- NOTE | 2020-05-02 16:51 | CHAPLAIN ---
Type of Pastoral Visit _x__ Initial Visit ___ Follow-up Visit ___ On-call Visit ___ General Patient Visit ___ Spiritual Assessment ___ Family Conference ___ Bereavement ___ Rapid Response ___ Code Blue ___ Other (describe below) Pastoral Care Referral From _x__ Patient ___ Family ___ Nurse ___ Physician ___ Utility Porter ___ Pearl Diver ___ Other (describe below) Sacrament/Intervention _x__ Active listening ___ Anointing ___ Catholic ___ Bereavement ___ Communion ___ Arianna exploration ___ _x__ Life review _x__ Prayer ___ Reconciliation ___ Sacrament of Sick _x__ Supportive presence ___ Wedding ___ Other (describe below) Pastoral Comments
[2020-05-02 20:30] VITALS: BP 146/72; PULSE 82; RESP 16; TEMP 36.9; O2SAT 97
[2020-05-02] MEDS: HEPARIN/D5w 25,000 UNITS 25,000 UNITS/250 ML IV.SOLN. 8 UNITS IV (20:37)
[2020-05-03] MEDS: Acetaminophen 325 MG Tablet 650 MG PO ×2 (01:54→16:47)
[2020-05-03] MEDS: Vancomycin IV 1,000 MG/200 ML BAG 200 MG IV (01:55)
[2020-05-03 02:02] VITALS: BP 165/81; PULSE 83; RESP 16; TEMP 37.1; O2SAT 97
[2020-05-03] MEDS: oxyCODONE 5 MG Tablet PO ×2 (02:10→16:47)
[2020-05-03 07:17] LABS: Hemoglobin 10.8 g/dL (12.0-15.0); Mean Corp Hgb Conc 31.8 g/dL (32-36); Mean Corpuscular Hgb 28.1 pg (27.0-32.0); Mean Corpuscular Volume 88.3 fL (81-99); Mean Platelet Vol. 10.4 fl (6.2-12.0); Platelet Count 450 K/mm3 (150-450); RBC Distribution Width CV 14.2 % (11.6-14.6); RBC Distribution Width SD 45.8 fl (35.1-43.9); Red Blood Count 3.85 M/mm3 (4.2-5.4); White Blood Count 12.5 K/mm3 (4.4-11.0)
[2020-05-03 07:29] LABS: Partial Thromboplast Time 40.5 Seconds (24.1-36.2)
[2020-05-03 07:51] LABS: Anion Gap 7 (5-15); BUN 11 mg/dL (7-18); BUN/Creat Ratio 20.6 RATIO (10-20); Chloride 103 mmol/L (98-107); Creatinine, Serum 0.53 mg/dL (0.55-1.02); EST Glomerular Filtration Rate 120 mL/min (>60); Est Glom Filt Rate - Afr Amer 146 mL/min (>60); Glucose 82 mg/dL (74-106); Magnesium 2.3 mg/dL (1.6-2.6); Potassium 3.9 mmol/L (3.5-5.1); Sodium Level 136 mmol/L (136-145)
--- NOTE | 2020-05-03 07:59 | PN_ITS ---
Patient Problems: Active and Suspected Problems Inability to ambulate due to right ankle or foot (Acute) Acute right ankle pain (Acute) Septic arthritis of right ankle (Acute) Reason for Visit: Right ankle pain Staph bacteremia Subjective: Patient is a 69-year-old lady admitted with right ankle pain. Subsequent evaluation in the hospital demonstrated evidence of bilateral lower extremity DVTs Patient seen complains of neck stiffness as well as significant low back pain with spasms -Patient underwent MRI of the cervical thoracic and lumbar spine with no evidence of epidural abscess or discitis. Repeat blood cultures positive for staph. Consult was placed to infectious disease patient seen by Dr. Deluca his notes and recommendations reviewed Objective: GENERAL: cooperative HEENT: Atraumatic; EYES; Anicteric, Normal Conjunctiva NECK; supple, normal thyroid, RESPIRATORY: Diminished to auscultation CARDIOVASCULAR: Regular S1 S2, GI: soft, normoactive bowel sounds, : No Renal angle tenderness; EXTREMITIES: No edema, no clubbing, MUSCULOSKELETAL: no muscle waisting NEURO: Awake; no lateralizing signs. SKIN: No Rash PSYCH; Flat affect Vitals/I&O's: Vital Signs Temp Pulse Resp BP Pulse Ox 98.7 F 83 16 165/81 H 97 05/03/20 02:02 05/03/20 02:02 05/03/20 02:02 05/03/20 02:02 05/03/20 02:02 Oxygen Delivery Method Room Air Weight: 59.8 kg Body Mass Index (BMI) 28.0 Intake and Output for Last 24 Hours 05/01/20 05/02/20 05/03/20 23:59 23:59 23:59 Intake Total 1278.5 / 1278.5 1510.54 / 1510.54 612 / 612 Output Total 350 / 1075 1325 / 1325 400 / 400 Balance 928.5 / 203.5 185.54 / 185.54 212 / 212 Microbiology Past 72 Hours 05/01/20 00:26 Blood Culture (Wb) - Anticubital Left Blood Culture - Final Staphylococcus aureus 05/01/20 00:30 Blood Culture (Wb) - Anticubital Right Bacteria Detection (PCR) - Final Staphylococcus aureus 05/01/20 00:30 Blood Culture (Wb) - Anticubital Right Blood Culture - Final Staphylococcus aureus 05/02/20 18:30 Stool Stool Occult Blood (TIMOTHY) - Final 05/01/20 07:45 Aspirate - Ankle Gram Stain - Final 05/01/20 07:45 Aspirate - Ankle Wound Culture - Preliminary No growth-Final to follow 05/01/20 01:10 Fluid - Synovial (joint) Gram Stain - Final 05/01/20 01:10 Fluid - Synovial (joint) Body Fluid Culture - Preliminary No growth-Final to follow 05/01/20 02:19 Mucosa - Nose SARS-CoV-2 Antigen (Rapid) - Final Laboratory Results 05/01/20 00:26: Diff Path Review Reviewed 05/01/20 07:45: Fl Crystal Path Review Reviewed 05/02/20 07:45: APTT 56.6 H 05/02/20 13:23: Vancomycin Trough 3.7 L 05/03/20 06:30: WBC 12.5 H, RBC 3.85 L, Hgb 10.8 L, Hct 34.0 L, MCV 88.3, MCH 28.1, MCHC 31.8 L, RDW Std Deviation 45.8 H, RDW Coeff of Kristine 14.2, Plt Count 450, MPV 10.4 05/03/20 06:30: Sodium 136, Potassium 3.9, Chloride 103, Carbon Dioxide 26.0, An ion Gap 7, BUN 11, Creatinine 0.53 L, Estim Creat Clear Calc 37.60, Est GFR (MDRD) Af Amer 146, Est GFR (MDRD) Non-Af 120, BUN/Creatinine Ratio 20.6 H, Glucose 82, Calcium 9.0, Magnesium 2.3 05/03/20 06:30: APTT 40.5 H Current Medications Acetaminophen (Acetaminophen 325 Mg Tablet) 650 mg PO Q6H PRN PRN PRN Reason: Pain Score 1-10/Temp > 100.7 F Last Admin: 05/03/20 01:54 Dose: 650 mg Documented by: Heparin Sodium (Porcine) (Heparin Injection (Vial) 5,000 Unit/Ml Vial) 0 unit IV UD PRN; Protocol PRN Reason: dose adjustment Vancomycin IV Pharmacy to Dose (1 ea/ Sodium Chloride) 500 mls @ 250 mls/hr IV PRN PRN; Protocol PRN Reason: Rx to Dose Ampicillin Sodium/Sulbactam (Sodium 3 gm/ Sodium Chloride) 112 mls @ 150 mls/hr IV Q8 [facility] Last Infusion: 05/03/20 06:24 Dose: Infused Documented by: Sodium Chloride () 250 mls @ 15 mls/hr IV .[id number] PRN PRN Reason: Saline Flush Sodium Chloride () 250 mls @ 15 mls/hr IV .[id number] PRN PRN Reason: Additional IVPB Infusion Heparin Sodium/Dextrose () 25,000 units in 250 mls @ 8 mls/hr IV .[id number] [facility]; Protocol Last Admin: 05/02/20 20:37 Dose: 800 units/hr, 8 mls/hr Documented by: Vancomycin HCl (Vancomycin) 1,000 mg in 200 mls @ 200 mls/hr IV Q12H [facility] Last Infusion: 05/03/20 03:05 Dose: Infused Documented by: Magnesium Hydroxide (Magnesium Hydroxide 30 Ml Udc) 30 ml PO DAILY PRN PRN PRN Reason: Constipation Morphine Sulfate (Morphine 2 Mg/Ml Syringe) 2 mg IV Q3H PRN PRN PRN Reason: Pain Score 6-10 Last Admin: 05/02/20 09:10 Dose: 2 mg Documented by: Oxycodone HCl (Oxycodone 5 Mg Tablet) 5 mg PO Q4H PRN PRN PRN Reason: Pain Score 4-5 Last Admin: 05/03/20 02:10 Dose: 5 mg Documented by: Prochlorperazine Edisylate (Prochlorperazine 10 Mg/2 Ml Vial) 5 mg IV Q4H PRN PRN PRN Reason: Breakthrough nausea/vomiting Senna/Docusate Sodium (Senna/Docusate Sodium 1 Tablet) 2 tablet PO BID PRN PRN PRN Reason: Constipation Sodium Chloride (0.9% Saline Lock 10 Ml Syringe) 10 - 40 ml IV UD PRN PRN Reason: SALINE FLUSH Last Admin: 05/02/20 09:10 Dose: 10 ml Documented by: Medical Necessity - Tobacco Use Smoking Status: Former smoker Tobacco Use: Non-smoker Assessment/Plan All Active Problems Inability to ambulate due to right ankle or foot (Acute) Acute right ankle pain (Acute) Septic arthritis of right ankle (Acute) Patient is a 69-year-old lady admitted with right ankle pain. Subsequent evaluation in the hospital demonstrated evidence of bilateral lower extremity DVTs 1. Right ankle pain ?Secondary to arthritis. Patient had knee aspirated cultures so far negative to date. Consultation placed to both podiatry -05/03/2020; culture from aspirate from R ankle so far negative 2. Staph aureus bacteremia ?Patient had recently been diagnosed with staph UTI treated with Bactrim however culture showed resistance. Patient is currently on vancomycin. Consultation placed to infectious disease -MRI with and without contrast involving the cervical thoracic as well as lumbar spine to evaluate for epidural abscess given patient significant neck and low back pain -05/03/2020;-Patient underwent MRI of the cervical thoracic and lumbar spine with no evidence of epidural abscess or discitis. Repeat blood cultures positive for staph. Consult was placed to infectious disease patient seen by Dr. Deluca his notes and recommendations reviewed 3. Bilateral lower extremity DVT ?Patient is on heparin for now 4. Anemia - Secondary to chronic disorder monitoring H&H and transfuse if patient becomes symptomatic or hemoglobin falls below 7 Inpatient E&M: [id number] [facility] Hosp L2
[2020-05-03] MEDS: Heparin Injection (Vial) 5,000 UNIT/ML VIAL IV (08:15)
[2020-05-03 08:28] VITALS: BP 129/72; PULSE 80; RESP 18; TEMP 36.9; O2SAT 97
--- NOTE | 2020-05-03 11:08 | PCM.PN.ID ---
Patient Problems: Active and Suspected Problems Inability to ambulate due to right ankle or foot (Acute) Acute right ankle pain (Acute) Septic arthritis of right ankle (Acute) Subjective: Feeling a little better, no fever, ankle less sore, back spasms improved - Physical Exam Vitals/I&O's: Vital Signs Temp Pulse Resp BP Pulse Ox 98.4 F 80 18 129/72 H 97 05/03/20 08:28 05/03/20 08:28 05/03/20 08:28 05/03/20 08:28 05/03/20 08:28 Oxygen Delivery Method Room Air Weight: 59.8 kg Body Mass Index (BMI) 28.0 Intake and Output for Last 24 Hours 05/01/20 05/02/20 05/03/20 23:59 23:59 23:59 Intake Total 1278.5 / 1278.5 1510.54 / 1510.54 704.8 / 704.8 Output Total 350 / 1075 1325 / 1325 750 / 750 Balance 928.5 / 203.5 185.54 / 185.54 -45.2 / -45.2 General: Alert, Cooperative, No apparent distress Lungs: Clear to auscultation, Normal air movement Cardiovascular: Regular rate, Regular Rhythm Abdomen: Soft, Non Tender, Non-Distended Skin: No rashes Microbiology Past 72 Hours 05/01/20 01:10 Fluid - Synovial (joint) Gram Stain - Final 05/01/20 01:10 Fluid - Synovial (joint) Body Fluid Culture - Preliminary No growth-Final to follow 05/01/20 01:10 Fluid - Synovial (joint) Anaerobic Culture - Preliminary No growth in 48 hours. 05/01/20 07:45 Aspirate - Ankle Gram Stain - Final 05/01/20 07:45 Aspirate - Ankle Wound Culture - Preliminary No growth-Final to follow 05/01/20 07:45 Aspirate - Ankle Anaerobic Culture - Preliminary No growth in 48 hours. 05/01/20 00:26 Blood Culture (Wb) - Anticubital Left Blood Culture - Final Staphylococcus aureus 05/01/20 00:30 Blood Culture (Wb) - Anticubital Right Bacteria Detection (PCR) - Final Staphylococcus aureus 05/01/20 00:30 Blood Culture (Wb) - Anticubital Right Blood Culture - Final Staphylococcus aureus 05/02/20 18:30 Stool Stool Occult Blood (TIMOTHY) - Final 05/01/20 02:19 Mucosa - Nose SARS-CoV-2 Antigen (Rapid) - Final Laboratory Results 05/01/20 00:26: Diff Path Review Reviewed 05/01/20 07:45: Fl Crystal Path Review Reviewed 05/02/20 13:23: Vancomycin Trough 3.7 L 05/03/20 06:30: WBC 12.5 H, RBC 3.85 L, Hgb 10.8 L, Hct 34.0 L, MCV 88.3, MCH 28.1, MCHC 31.8 L, RDW Std Deviation 45.8 H, RDW Coeff of Kristine 14.2, Plt Count 450, MPV 10.4 05/03/20 06:30: Sodium 136, Potassium 3.9, Chloride 103, Carbon Dioxide 26.0, Anion Gap 7, BUN 11, Creatinine 0.53 L, Estim Creat Clear Calc 37.60, Est GFR (MDRD) Af Amer 146, Est GFR (MDRD) Non-Af 120, BUN/Creatinine Ratio 20.6 H, Glucose 82, Calcium 9.0, Magnesium 2.3 05/03/20 06:30: APTT 40.5 H Current Medications Acetaminophen (Acetaminophen 325 Mg Tablet) 650 mg PO Q6H PRN PRN PRN Reason: Pain Score 1-10/Temp > 100.7 F Last Admin: 05/03/20 01:54 Dose: 650 mg Documented by: Heparin Sodium (Porcine) (Heparin Injection (Vial) 5,000 Unit/Ml Vial) 0 unit IV UD PRN; Protocol PRN Reason: dose adjustment Last Admin: 05/03/20 08:15 Dose: 1,000 unit Documented by: Sodium Chloride () 250 mls @ 15 mls/hr IV .[id number] PRN PRN Reason: Saline Flush Sodium Chloride () 250 mls @ 15 mls/hr IV .[id number] PRN PRN Reason: Additional IVPB Infusion Heparin Sodium/Dextrose () 25,000 units in 250 mls @ 8 mls/hr IV .[id number] [facility]; Protocol Last Titration: 05/03/20 08:13 Dose: 1,000 units/hr, 10 mls/hr Documented by: Cefazolin Sodium 2 gm/ Sodium (Chloride) 110 mls @ 150 mls/hr IV Q8 HUSAM Magnesium Hydroxide (Magnesium Hydroxide 30 Ml Udc) 30 ml PO DAILY PRN PRN PRN Reason: Constipation Morphine Sulfate (Morphine 2 Mg/Ml Syringe) 2 mg IV Q3H PRN PRN PRN Reason: Pain Score 6-10 Last Admin: 05/02/20 09:10 Dose: 2 mg Documented by: Oxycodone HCl (Oxycodone 5 Mg Tablet) 5 mg PO Q4H PRN PRN PRN Reason: Pain Score 4-5 Last Admin: 05/03/20 02:10 Dose: 5 mg Documented by: Prochlorperazine Edisylate (Prochlorperazine 10 Mg/2 Ml Vial) 5 mg IV Q4H PRN PRN PRN Reason: Breakthrough nausea/vomiting Senna/Docusate Sodium (Senna/Docusate Sodium 1 Tablet) 2 tablet PO BID PRN PRN PRN Reason: Constipation Sodium Chloride (0.9% Saline Lock 10 Ml Syringe) 10 - 40 ml IV UD PRN PRN Reason: SALINE FLUSH Last Admin: 05/02/20 09:10 Dose: 10 ml Documented by: Medical Necessity - Tobacco Use Smoking Status: Former smoker Tobacco Use: Non-smoker Route of nutrition/ use of supplements: [] Nutritional Intake: [] IV Site: [] Myers Catheter: [] - Assessment/Plan Antibiotics: [] Assessment/Plan: [] Active and Suspected Problems Inability to ambulate due to right ankle or foot (Acute) Acute right ankle pain (Acute) Septic arthritis of right ankle (Acute) MSSA bacteremia with R ankle suspected septic arthritis and recent mssa in ucx - ankle and urine likely represent hematogenous spread, unclear source. Ankle cx neg. Narrow abx to cefazolin. Will get repeat bcx today. TTE showed no veg. Will follow
--- NOTE | 2020-05-03 12:20 | PN_ITS ---
Patient Problems: Active and Suspected Problems Inability to ambulate due to right ankle or foot (Acute) Acute right ankle pain (Acute) Septic arthritis of right ankle (Acute) Subjective: This 69-year-old female was seen bedside for right ankle pain and follow-up of infection work-up. She denies current fever, chill, nausea, vomiting. She is on IV antibiotics and under the management of infectious disease as well. Her ankle pain and swelling is decreasing. - Physical Exam Vitals/I&O's: Vital Signs Temp Pulse Resp BP Pulse Ox 98.4 F 80 18 129/72 H 97 05/03/20 08:28 05/03/20 08:28 05/03/20 08:28 05/03/20 08:28 05/03/20 08:28 Oxygen Delivery Method Room Air Weight: 59.8 kg Body Mass Index (BMI) 28.0 Intake and Output for Last 24 Hours 05/01/20 05/02/20 05/03/20 23:59 23:59 23:59 Intake Total 1278.5 / 1278.5 1510.54 / 1510.54 704.8 / 704.8 Output Total 350 / 1075 1325 / 1325 750 / 750 Balance 928.5 / 203.5 185.54 / 185.54 -45.2 / -45.2 General: Alert, Oriented x3, Cooperative Extremities: No cyanosis, Capillary Refill Less than 3 Seconds, Edema - decreasing, Peripheral Pulses Normal Skin: - - there is no erythema, streaking, bogginess, flucutance, odor or skin discontinuity to right lowe she isr extremity Musculoskeletal: No Tenderness to Palpation of Joints or Extremities, Muscle Wasting, - - compartments soft to palpate Neurological: Sensory exam intact to light touch and pain Psych/Mental Status: Normal Affect, Appropriate Microbiology Past 72 Hours 05/01/20 01:10 Fluid - Synovial (joint) Gram Stain - Final 05/01/20 01:10 Fluid - Synovial (joint) Body Fluid Culture - Preliminary No growth-Final to follow 05/01/20 01:10 Fluid - Synovial (joint) Anaerobic Culture - Preliminary No growth in 48 hours. 05/01/20 07:45 Aspirate - Ankle Gram Stain - Final 05/01/20 07:45 Aspirate - Ankle Wound Culture - Preliminary No growth-Final to follow 05/01/20 07:45 Aspirate - Ankle Anaerobic Culture - Preliminary No growth in 48 hours. 05/01/20 00:26 Blood Culture (Wb) - Anticubital Left Blood Culture - Final Staphylococcus aureus 05/01/20 00:30 Blood Culture (Wb) - Anticubital Right Bacteria Detection (PCR) - Final Staphylococcus aureus 05/01/20 00:30 Blood Culture (Wb) - Anticubital Right Blood Culture - Final Staphylococcus aureus 05/02/20 18:30 Stool Stool Occult Blood (TIMOTHY) - Final 05/01/20 02:19 Mucosa - Nose SARS-CoV-2 Antigen (Rapid) - Final Laboratory Results 05/01/20 00:26: Diff Path Review Reviewed 05/01/20 07:45: Fl Crystal Path Review Reviewed 05/02/20 13:23: Vancomycin Trough 3.7 L 05/03/20 06:30: WBC 12.5 H, RBC 3.85 L, Hgb 10.8 L, Hct 34.0 L, MCV 88.3, MCH 28.1, MCHC 31.8 L, RDW Std Deviation 45.8 H, RDW Coeff of Kristine 14.2, Plt Count 450, MPV 10.4 05/03/20 06:30: Sodium 136, Potassium 3.9, Chloride 103, Carbon Dioxide 26.0, Anion Gap 7, BUN 11, Creatinine 0.53 L, Estim Creat Clear Calc 37.60, Est GFR (MDRD) Af Amer 146, Est GFR (MDRD) Non-Af 120, BUN/Creatinine Ratio 20.6 H, Glucose 82, Calcium 9.0, Magnesium 2.3 05/03/20 06:30: APTT 40.5 H Current Medications Acetaminophen (Acetaminophen 325 Mg Tablet) 650 mg PO Q6H PRN PRN PRN Reason: Pain Score 1-10/Temp > 100.7 F Last Admin: 05/03/20 01:54 Dose: 650 mg Documented by: Heparin Sodium (Porcine) (Heparin Injection (Vial) 5,000 Unit/Ml Vial) 0 unit IV UD PRN; Protocol PRN Reason: dose adjustment Last Admin: 05/03/20 08:15 Dose: 1,000 unit Documented by: Sodium Chloride () 250 mls @ 15 mls/hr IV .[id number] PRN PRN Reason: Saline Flush Sodium Chloride () 250 mls @ 15 mls/hr IV .[id number] PRN PRN Reason: Additional IVPB Infusion Heparin Sodium/Dextrose () 25,000 units in 250 mls @ 8 mls/hr IV .[id number] [facility]; Protocol Last Titration: 05/03/20 08:13 Dose: 1,000 units/hr, 10 mls/hr Documented by: Cefazolin Sodium 2 gm/ Sodium (Chloride) 110 mls @ 150 mls/hr IV Q8 [facility] Magnesium Hydroxide (Magnesium Hydroxide 30 Ml Udc) 30 ml PO DAILY PRN PRN PRN Reason: Constipation Morphine Sulfate (Morphine 2 Mg/Ml Syringe) 2 mg IV Q3H PRN PRN PRN Reason: Pain Score 6-10 Last Admin: 05/02/20 09:10 Dose: 2 mg Documented by: Oxycodone HCl (Oxycodone 5 Mg Tablet) 5 mg PO Q4H PRN PRN PRN Reason: Pain Score 4-5 Last Admin: 05/03/20 02:10 Dose: 5 mg Documented by: Prochlorperazine Edisylate (Prochlorperazine 10 Mg/2 Ml Vial) 5 mg IV Q4H PRN PRN PRN Reason: Breakthrough nausea/vomiting Senna/Docusate Sodium (Senna/Docusate Sodium 1 Tablet) 2 tablet PO BID PRN PRN PRN Reason: Constipation Sodium Chloride (0.9% Saline Lock 10 Ml Syringe) 10 - 40 ml IV UD PRN PRN Reason: SALINE FLUSH Last Admin: 05/02/20 09:10 Dose: 10 ml Documented by: Medical Necessity - Tobacco Use Smoking Status: Former smoker Tobacco Use: Non-smoker Assessment/Plan All Active Problems Inability to ambulate due to right ankle or foot (Acute) Acute right ankle pain (Acute) Septic arthritis of right ankle (Acute) 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 Her WBC is decreased to 12.5. This patient is currently afebrile and vital signs stable. Ankle aspiration negative culture results so far. Her positive blood cultures are noted; Staphylococcus aureus. AB narrowed to cefazolin per ID. Additional work up has included back MRI (neg), ankle MRI (neg), and negative TTE. Repeat blood cultures are pending. Her lower extremity edema continues to decrease. To continue Tobias wraps and elevation. Her bilateral DVTs are noted. Management per primary team appreciated with heparin. She was advised to maintain a nonweightbearing status to the right lower extremity and to use an assistive device. She would benefit from ankle-foot orthotic such as a custom Liliane brace. This was offered to her in the outpatient setting and she will follow-up after hospital discharge. To continue assistive device; walker. I'll continue follow closely while in house. Surgery for ankle is not recommended due to lack of imaging and aspirate findings. I'll continue to monitor for any clinical changes or progression. Please do not hesitate to call if you have any questions. Brenda He DPM, FACFAS [facility] [phone]
[2020-05-03] MEDS: Cefazolin 2 GM in 0.9% Normal Saline 100 ML IV ×2 (14:40→21:07)
--- NOTE | 2020-05-03 15:00 | NURSING ---
Lab reports to this RN that they are not able to obtain PTT x2 with two different lab techs. metal bonder called.
--- NOTE | 2020-05-03 15:22 | NURSING ---
parachute manufacturing supervisor notified that lab and this nurse unable to obtain PTT
[2020-05-03] MEDS: 0.9% Saline Lock 10 ML Syringe IV ×2 (15:54→21:07)
[2020-05-03 16:36] VITALS: BP 137/72; PULSE 87; RESP 16; TEMP 36.8; O2SAT 98
[2020-05-03 17:09] LABS: Partial Thromboplast Time 28.2 Seconds (24.1-36.2)
[2020-05-03 20:10] VITALS: BP 109/62; PULSE 76; RESP 16; TEMP 36.5; O2SAT 96
[2020-05-03] MEDS: Morphine 2 MG/ML Syringe IV (21:06)
[2020-05-03] MEDS: APIXABAN 5 MG TABLET 10 MG PO (21:08)
[2020-05-04 02:10] VITALS: BP 115/68; PULSE 80; RESP 16; TEMP 36.8; O2SAT 97
[2020-05-04] MEDS: Acetaminophen 325 MG Tablet 650 MG PO (02:17)
[2020-05-04] MEDS: 0.9% Saline Lock 10 ML Syringe IV ×2 (05:18→20:58)
[2020-05-04] MEDS: Cefazolin 2 GM in 0.9% Normal Saline 100 ML IV ×3 (05:18→20:58)
[2020-05-04] MEDS: oxyCODONE 5 MG Tablet PO ×2 (05:47→20:54)
[2020-05-04 07:03] LABS: Hematocrit 30.2 % (37-47); Hemoglobin 9.6 g/dL (12.0-15.0); Mean Corp Hgb Conc 31.8 g/dL (32-36); Mean Corpuscular Hgb 28.2 pg (27.0-32.0); Mean Corpuscular Volume 88.6 fL (81-99); Mean Platelet Vol. 9.4 fl (6.2-12.0); Platelet Count 581 K/mm3 (150-450); RBC Distribution Width CV 14.3 % (11.6-14.6); RBC Distribution Width SD 46.3 fl (35.1-43.9); Red Blood Count 3.41 M/mm3 (4.2-5.4); White Blood Count 13.1 K/mm3 (4.4-11.0)
[2020-05-04 07:33] LABS: Anion Gap 5 (5-15); BUN 12 mg/dL (7-18); BUN/Creat Ratio 18.6 RATIO (10-20); Calcium,Total 9.1 mg/dL (8.5-10.1); Chloride 102 mmol/L (98-107); Creatinine, Serum 0.65 mg/dL (0.55-1.02); EST Glomerular Filtration Rate 96 mL/min (>60); Est Glom Filt Rate - Afr Amer 117 mL/min (>60); Glucose 100 mg/dL (74-106); Sodium Level 134 mmol/L (136-145)
--- NOTE | 2020-05-04 07:43 | PCM.PROGNOTE ---
Patient Problems: Active and Suspected Problems Inability to ambulate due to right ankle or foot (Acute) Acute right ankle pain (Acute) Septic arthritis of right ankle (Acute) Subjective: This 69-year-old female was seen bedside for right ankle pain and follow-up of infection work-up. She has MSSA bacteremia. She denies current fever, chill, nausea, vomiting, loss of appetite. She rates her right ankle pain as 1/10 currently. She relates she has new neck pain that was noticed overnight. - Physical Exam Vitals/I&O's: Vital Signs Temp Pulse Resp BP Pulse Ox 98.3 F 80 16 115/68 97 05/04/20 02:10 05/04/20 02:10 05/04/20 02:10 05/04/20 02:10 05/04/20 02:10 Oxygen Delivery Method Room Air Weight: 59 kg Body Mass Index (BMI) 28.0 Intake and Output for Last 24 Hours 05/02/20 05/03/20 05/04/20 23:59 23:59 23:59 Intake Total 1510.54 / 1510.54 1501.13 / 1501.13 110 / 110 Output Total 1325 / 1325 1400 / 1400 250 / 250 Balance 185.54 / 185.54 101.13 / 101.13 -140 / -140 General: Alert, Oriented x3, Cooperative Extremities: No cyanosis, Capillary Refill Less than 3 Seconds - All digits bilateral lower extremities, No Calf Tenderness - Negative Aguiar sign bilateral lower extremities, Edema - Decreased bilateral lower extremities, Peripheral Pulses Normal Skin: - - There is no ulcer, erythema, streaking, odor, drainage, bogginess, fluctuance or signs of infection bilateral lower extremities Musculoskeletal: Muscle Wasting, - - AROM digits bilateral. Lack of passive range of motion of right ankle is consistent with her advanced arthritis. Compartments of the lower extremity remain soft to palpate Neurological: Sensory exam intact to light touch and pain Psych/Mental Status: Normal Affect, Appropriate Microbiology Past 72 Hours 05/01/20 01:10 Fluid - Synovial (joint) Gram Stain - Final 05/01/20 01:10 Fluid - Synovial (joint) Body Fluid Culture - Preliminary No growth-Final to follow 05/01/20 01:10 Fluid - Synovial (joint) Anaerobic Culture - Preliminary No growth in 48 hours. 05/01/20 07:45 Aspirate - Ankle Gram Stain - Final 05/01/20 07:45 Aspirate - Ankle Wound Culture - Preliminary No growth-Final to follow 05/01/20 07:45 Aspirate - Ankle Anaerobic Culture - Preliminary No growth in 48 hours. 05/01/20 00:26 Blood Culture (Wb) - Anticubital Left Blood Culture - Final Staphylococcus aureus 05/01/20 00:30 Blood Culture (Wb) - Anticubital Right Bacteria Detection (PCR) - Final Staphylococcus aureus 05/01/20 00:30 Blood Culture (Wb) - Anticubital Right Blood Culture - Final Staphylococcus aureus 05/02/20 18:30 Stool Stool Occult Blood (TIMOTHY) - Final Laboratory Results 05/03/20 06:30: Sodium 136, Potassium 3.9, Chloride 103, Carbon Dioxide 26.0, Anion Gap 7, BUN 11, Creatinine 0.53 L, Estim Creat Clear Calc 37.60, Est GFR (MDRD) Af Amer 146, Est GFR (MDRD) Non-Af 120, BUN/Creatinine Ratio 20.6 H, Glucose 82, Calcium 9.0, Magnesium 2.3 05/03/20 16:32: APTT 28.2 05/04/20 06:46: WBC 13.1 H, RBC 3.41 L, Hgb 9.6 L, Hct 30.2 L, MCV 88.6, MCH 28.2, MCHC 31.8 L, RDW Std Deviation 46.3 H, RDW Coeff of Kristine 14.3, Plt Count 581 H, MPV 9.4 05/04/20 06:46: Sodium 134 L, Potassium 4.0, Chloride 102, Carbon Dioxide 27.0, Anion Gap 5, BUN 12, Creatinine 0.65, Estim Creat Clear Calc 37.60, Est GFR (MDRD) Af Amer 117, Est GFR (MDRD) Non-Af 96, BUN/Creatinine Ratio 18.6, Glucose 100, Calcium 9.1 Current Medications Acetaminophen (Acetaminophen 325 Mg Tablet) 650 mg PO Q6H PRN PRN PRN Reason: Pain Score 1-10/Temp > 100.7 F Last Admin: 05/04/20 02:17 Dose: 650 mg Documented by: Apixaban (Apixaban 5 Mg Tablet) 10 mg PO BID HUSAM Last Admin: 05/03/20 21:08 Dose: 10 mg Documented by: Sodium Chloride () 250 mls @ 15 mls/hr IV .[id number] PRN PRN Reason: Saline Flush Sodium Chloride () 250 mls @ 15 mls/hr IV .[id number] PRN PRN Reason: Additional IVPB Infusion Cefazolin Sodium 2 gm/ Sodium (Chloride) 110 mls @ 150 mls/hr IV Q8 HUSAM Last Infusion: 05/04/20 06:02 Dose: Infused Documented by: Magnesium Hydroxide (Magnesium Hydroxide 30 Ml Udc) 30 ml PO DAILY PRN PRN PRN Reason: Constipation Morphine Sulfate (Morphine 2 Mg/Ml Syringe) 2 mg IV Q3H PRN PRN PRN Reason: Pain Score 6-10 Last Admin: 05/03/20 21:06 Dose: 2 mg Documented by: Oxycodone HCl (Oxycodone 5 Mg Tablet) 5 mg PO Q4H PRN PRN PRN Reason: Pain Score 4-5 Last Admin: 05/04/20 05:47 Dose: 5 mg Documented by: Prochlorperazine Edisylate (Prochlorperazine 10 Mg/2 Ml Vial) 5 mg IV Q4H PRN PRN PRN Reason: Breakthrough nausea/vomiting Senna/Docusate Sodium (Senna/Docusate Sodium 1 Tablet) 2 tablet PO BID PRN PRN PRN Reason: Constipation Sodium Chloride (0.9% Saline Lock 10 Ml Syringe) 10 - 40 ml IV UD PRN PRN Reason: SALINE FLUSH Last Admin: 05/04/20 05:18 Dose: 20 ml Documented by: Medical Necessity - Tobacco Use Smoking Status: Former smoker Tobacco Use: Non-smoker Assessment/Plan All Active Problems Inability to ambulate due to right ankle or foot (Acute) Acute right ankle pain (Acute) Septic arthritis of right ankle (Acute) 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 Her WBC is 13.1 this morning. This patient is currently afebrile with stable vital signs. Ankle aspiration negative culture results so far. Her positive blood cultures are noted; Staphylococcus aureus. AB narrowed to cefazolin per ID. Additional work up has included back MRI (neg), ankle MRI (neg), and negative TTE. Repeat blood cultures are pending. Her bilateral DVTs are noted. Management per primary team appreciated; Andi. She was advised to maintain a nonweightbearing status to the right lower extremity and to use an assistive device. She would benefit from ankle-foot orthotic such as a custom Liliane brace. This was offered to her in the outpatient setting and she will follow-up after hospital discharge. To continue assistive device; walker. I'll continue follow closely while in house. Surgery for ankle is not recommended at this time. I'll continue to monitor for any clinical changes or progression. Please do not hesitate to call if you have any questions. Brenda He DPM, FAC[facility] [phone]
--- NOTE | 2020-05-04 08:23 | PCM.PN.HOSP ---
Patient Problems: Active and Suspected Problems Inability to ambulate due to right ankle or foot (Acute) Acute right ankle pain (Acute) Septic arthritis of right ankle (Acute) Reason for Visit: Right ankle pain Staph bacteremia Subjective: Patient is a 69-year-old lady admitted with right ankle pain. Subsequent evaluation in the hospital demonstrated evidence of bilateral lower extremity DVTs Patient seen complains of neck stiffness as well as significant low back pain with spasms -Patient underwent MRI of the cervical thoracic and lumbar spine with no evidence of epidural abscess or discitis. Repeat blood cultures positive for staph. Consult was placed to infectious disease patient seen by Dr. Deluca his notes and recommendations reviewed 05/04/2020; repeat blood cultures were sent the day prior. Patient heparin was also discontinued the day prior and subsequently started on Eliquis Objective: GENERAL: cooperative HEENT: Atraumatic; EYES; Anicteric, Normal Conjunctiva NECK; supple, normal thyroid, RESPIRATORY: Diminished to auscultation CARDIOVASCULAR: Regular S1 S2, GI: soft, normoactive bowel sounds, : No Renal angle tenderness; EXTREMITIES: No edema, no clubbing, MUSCULOSKELETAL: no muscle waisting NEURO: Awake; no lateralizing signs. SKIN: No Rash PSYCH; Flat affect Vitals/I&O's: Vital Signs Temp Pulse Resp BP Pulse Ox 98.3 F 80 16 115/68 97 05/04/20 02:10 05/04/20 02:10 05/04/20 02:10 05/04/20 02:10 05/04/20 02:10 Oxygen Delivery Method Room Air Weight: 59 kg Body Mass Index (BMI) 28.0 Intake and Output for Last 24 Hours 05/02/20 05/03/20 05/04/20 23:59 23:59 23:59 Intake Total 1510.54 / 1510.54 1501.13 / 1501.13 110 / 110 Output Total 1325 / 1325 1400 / 1400 250 / 250 Balance 185.54 / 185.54 101.13 / 101.13 -140 / -140 Microbiology Past 72 Hours 05/01/20 01:10 Fluid - Synovial (joint) Gram Stain - Final 05/01/20 01:10 Fluid - Synovial (joint) Body Fluid Culture - Preliminary No growth-Final to follow 05/01/20 01:10 Fluid - Synovial (joint) Anaerobic Culture - Preliminary No growth in 48 hours. 05/01/20 07:45 Aspirate - Ankle Gram Stain - Final 05/01/20 07:45 Aspirate - Ankle Wound Culture - Preliminary No growth-Final to follow 05/01/20 07:45 Aspirate - Ankle Anaerobic Culture - Preliminary No growth in 48 hours. 05/01/20 00:26 Blood Culture (Wb) - Anticubital Left Blood Culture - Final Staphylococcus aureus 05/01/20 00:30 Blood Culture (Wb) - Anticubital Right Bacteria Detection (PCR) - Final Staphylococcus aureus 05/01/20 00:30 Blood Culture (Wb) - Anticubital Right Blood Culture - Final Staphylococcus aureus 05/02/20 18:30 Stool Stool Occult Blood (TIMOHTY) - Final Laboratory Results 05/03/20 16:32: APTT 28.2 05/04/20 06:46: WBC 13.1 H, RBC 3.41 L, Hgb 9.6 L, Hct 30.2 L, MCV 88.6, MCH 28.2, MCHC 31.8 L, RDW Std Deviation 46.3 H, RDW Coeff of Kristine 14.3, Plt Count 581 H, MPV 9.4 05/04/20 06:46: Sodium 134 L, Potassium 4.0, Chloride 102, Carbon Dioxide 27.0, Anion Gap 5, BUN 12, Creatinine 0.65, Estim Creat Clear Calc 37.60, Est GFR (MDRD) Af Amer 117, Est GFR (MDRD) Non-Af 96, BUN/Creatinine Ratio 18.6, Glucose 100, Calcium 9.1 Current Medications Acetaminophen (Acetaminophen 325 Mg Tablet) 650 mg PO Q6H PRN PRN PRN Reason: Pain Score 1-10/Temp > 100.7 F Last Admin: 05/04/20 02:17 Dose: 650 mg Documented by: Apixaban (Apixaban 5 Mg Tablet) 10 mg PO BID HUSAM Last Admin: 05/03/20 21:08 Dose: 10 mg Documented by: Sodium Chloride () 250 mls @ 15 mls/hr IV .[id number] PRN PRN Reason: Saline Flush Sodium Chloride () 250 mls @ 15 mls/hr IV .[id number] PRN PRN Reason: Additional IVPB Infusion Cefazolin Sodium 2 gm/ Sodium (Chloride) 110 mls @ 150 mls/hr IV Q8 HUSAM Last Infusion: 05/04/20 06:02 Dose: Infused Documented by: Magnesium Hydroxide (Magnesium Hydroxide 30 Ml Udc) 30 ml PO DAILY PRN PRN PRN Reason: Constipation Morphine Sulfate (Morphine 2 Mg/Ml Syringe) 2 mg IV Q3H PRN PRN PRN Reason: Pain Score 6-10 Last Admin: 05/03/20 21:06 Dose: 2 mg Documented by: Oxycodone HCl (Oxycodone 5 Mg Tablet) 5 mg PO Q4H PRN PRN PRN Reason: Pain Score 4-5 Last Admin: 05/04/20 05:47 Dose: 5 mg Documented by: Prochlorperazine Edisylate (Prochlorperazine 10 Mg/2 Ml Vial) 5 mg IV Q4H PRN PRN PRN Reason: Breakthrough nausea/vomiting Senna/Docusate Sodium (Senna/Docusate Sodium 1 Tablet) 2 tablet PO BID PRN PRN PRN Reason: Constipation Sodium Chloride (0.9% Saline Lock 10 Ml Syringe) 10 - 40 ml IV UD PRN PRN Reason: SALINE FLUSH Last Admin: 05/04/20 05:18 Dose: 20 ml Documented by: Medical Necessity - Tobacco Use Smoking Status: Former smoker Tobacco Use: Non-smoker Assessment/Plan All Active Problems Inability to ambulate due to right ankle or foot (Acute) Acute right ankle pain (Acute) Septic arthritis of right ankle (Acute) Patient is a 69-year-old lady admitted with right ankle pain. Subsequent evaluation in the hospital demonstrated evidence of bilateral lower extremity DVTs 1. Right ankle pain ?Secondary to arthritis. Patient had knee aspirated cultures so far negative to date. Consultation placed to both podiatry -05/03/2020; culture from aspirate from R ankle so far negative 2. Staph aureus bacteremia ?Patient had recently been diagnosed with staph UTI treated with Bactrim however culture showed resistance. Patient is currently on vancomycin. Consultation placed to infectious disease -MRI with and without contrast involving the cervical thoracic as well as lumbar spine to evaluate for epidural abscess given patient significant neck and low back pain -05/03/2020;-Patient underwent MRI of the cervical thoracic and lumbar spine with no evidence of epidural abscess or discitis. Repeat blood cultures positive for staph. Consult was placed to infectious disease patient seen by Dr. Deluca his notes and recommendations reviewed -05/04/2020; repeat blood cultures since the day prior 3. Bilateral lower extremity DVT ?Patient is on heparin for now -05/04/2020; patient was on heparin which was discontinued the previous day. Subsequently started on Eliquis 4. Anemia - Secondary to chronic disorder monitoring H&H and transfuse if patient becomes symptomatic or hemoglobin falls below 7 5. Mild hyponatremia -we will continue to monitor Inpatient E&M: [id number] Subs Hosp L2
[2020-05-04 08:44] VITALS: BP 120/62; PULSE 79; RESP 16; TEMP 36.9; O2SAT 95
[2020-05-04] MEDS: APIXABAN 5 MG TABLET 10 MG PO ×2 (09:00→20:58)
[2020-05-04 14:34] LABS: Vancomycin, Trough Level 1.8 ug/mL (5.0-15.0)
[2020-05-04 20:00] VITALS: BP 121/69; PULSE 89; RESP 16; TEMP 36.9; O2SAT 94
[2020-05-05 02:00] VITALS: BP 122/64; PULSE 82; RESP 16; TEMP 37.1; O2SAT 95
[2020-05-05] MEDS: Cefazolin 2 GM in 0.9% Normal Saline 100 ML IV ×3 (05:15→21:18)
[2020-05-05 06:42] LABS: Hematocrit 31.2 % (37-47); Mean Corp Hgb Conc 32.1 g/dL (32-36); Mean Corpuscular Hgb 28.4 pg (27.0-32.0); Mean Corpuscular Volume 88.6 fL (81-99); Mean Platelet Vol. 9.3 fl (6.2-12.0); Platelet Count 594 K/mm3 (150-450); RBC Distribution Width CV 14.2 % (11.6-14.6); RBC Distribution Width SD 46.1 fl (35.1-43.9); Red Blood Count 3.52 M/mm3 (4.2-5.4); White Blood Count 10.3 K/mm3 (4.4-11.0)
[2020-05-05 07:07] LABS: Anion Gap 7 (5-15); BUN 12 mg/dL (7-18); BUN/Creat Ratio 20.9 RATIO (10-20); Calcium,Total 9.1 mg/dL (8.5-10.1); Chloride 104 mmol/L (98-107); Creatinine, Serum 0.57 mg/dL (0.55-1.02); EST Glomerular Filtration Rate 110 mL/min (>60); Est Glom Filt Rate - Afr Amer 134 mL/min (>60); Glucose 106 mg/dL (74-106); Potassium 3.8 mmol/L (3.5-5.1); Sodium Level 135 mmol/L (136-145)
--- NOTE | 2020-05-05 07:16 | PCM.PROGNOTE ---
Patient Problems: Active and Suspected Problems Inability to ambulate due to right ankle or foot (Acute) Acute right ankle pain (Acute) Septic arthritis of right ankle (Acute) Subjective: This 69-year-old female was seen bedside for right ankle pain and follow-up of infection work-up. She has MSSA bacteremia. She denies current fever, chill, nausea, vomiting, loss of appetite, shortness of breath, chest pain. She denies ankle pain this morning. She relates her ankle pain is exacerbated when she tries to stand on it. We reviewed various immobilization options ranging from cam walker boot to external shoe ankle-foot orthotic to traditional ankle-foot orthotic that fits inside of her shoe such as an Liliane brace. - Physical Exam Vitals/I&O's: Vital Signs Temp Pulse Resp BP Pulse Ox 98.8 F 82 16 122/64 H 95 05/05/20 02:00 05/05/20 02:00 05/05/20 02:00 05/05/20 02:00 05/05/20 02:00 Oxygen Delivery Method Room Air Weight: 58.6 kg Body Mass Index (BMI) 28.0 Intake and Output for Last 24 Hours 05/03/20 05/04/20 05/05/20 23:59 23:59 23:59 Intake Total 1501.13 / 1501.13 330 / 330 110 / 110 Output Total 1400 / 1400 500 / 500 300 / 300 Balance 101.13 / 101.13 -170 / -170 -190 / -190 General: Alert, Oriented x3, Cooperative Extremities: No cyanosis, Capillary Refill Less than 3 Seconds, No Calf Tenderness - Negative Aguiar sign bilateral, Edema - Decreased, Peripheral Pulses Normal Skin: - - No lower extremity ulcer, erythema, streaking, odor, bogginess, or fluctuance Musculoskeletal: Muscle Wasting, Tenderness - Decreased to right ankle now localized just to the anterior ankle joint no longer along the posterior tibial tendon area. Lack of passive and resistive range of motion ankle is consistent with her advanced arthritis Neurological: Sensory exam intact to light touch and pain Psych/Mental Status: Normal Affect, Appropriate Microbiology Past 72 Hours 05/02/20 14:48 Blood Culture (Wb) - Left Hand Blood Culture - Preliminary No growth in 48 hours. 05/01/20 07:45 Aspirate - Ankle Gram Stain - Final 05/01/20 07:45 Aspirate - Ankle Wound Culture - Final No growth aerobically. 05/01/20 07:45 Aspirate - Ankle Anaerobic Culture - Preliminary No growth in 48 hours. 05/01/20 01:10 Fluid - Synovial (joint) Gram Stain - Final 05/01/20 01:10 Fluid - Synovial (joint) Body Fluid Culture - Preliminary No growth-Final to follow 05/01/20 01:10 Fluid - Synovial (joint) Anaerobic Culture - Preliminary No growth in 48 hours. 05/01/20 00:26 Blood Culture (Wb) - Anticubital Left Blood Culture - Final Staphylococcus aureus 05/01/20 00:30 Blood Culture (Wb) - Anticubital Right Bacteria Detection (PCR) - Final Staphylococcus aureus 05/01/20 00:30 Blood Culture (Wb) - Anticubital Right Blood Culture - Final Staphylococcus aureus 05/02/20 18:30 Stool Stool Occult Blood (TIMOTHY) - Final Laboratory Results 05/04/20 06:46: Sodium 134 L, Potassium 4.0, Chloride 102, Carbon Dioxide 27.0, Anion Gap 5, BUN 12, Creatinine 0.65, Estim Creat Clear Calc 37.60, Est GFR (MDRD) Af Amer 117, Est GFR (MDRD) Non-Af 96, BUN/Creatinine Ratio 18.6, Glucose 100, Calcium 9.1 05/04/20 13:45: Vancomycin Trough 1.8 L 05/05/20 06:20: WBC 10.3, RBC 3.52 L, Hgb 10.0 L, Hct 31.2 L, MCV 88.6, MCH 28.4, MCHC 32.1, RDW Std Deviation 46.1 H, RDW Coeff of Kristine 14.2, Plt Count 594 H, MPV 9.3 05/05/20 06:20: Sodium 135 L, Potassium 3.8, Chloride 104, Carbon Dioxide 24.0, Anion Gap 7, BUN 12, Creatinine 0.57, Estim Creat Clear Calc 37.60, Est GFR (MDRD) Af Amer 134, Est GFR (MDRD) Non-Af 110, BUN/Creatinine Ratio 20.9 H, Glucose 106, Calcium 9.1 Current Medications Acetaminophen (Acetaminophen 325 Mg Tablet) 650 mg PO Q6H PRN PRN PRN Reason: Pain Score 1-10/Temp > 100.7 F Last Admin: 05/04/20 02:17 Dose: 650 mg Documented by: Apixaban (Apixaban 5 Mg Tablet) 10 mg PO BID [facility] [place] Last Admin: 05/04/20 20:58 Dose: 10 mg Documented by: Sodium Chloride () 250 mls @ 15 mls/hr IV .[id number] PRN PRN Reason: Saline Flush Sodium Chloride () 250 mls @ 15 mls/hr IV .[id number] PRN PRN Reason: Additional IVPB Infusion Cefazolin Sodium 2 gm/ Sodium (Chloride) 110 mls @ 150 mls/hr IV Q8 [facility] [place] Last Infusion: 05/05/20 05:59 Dose: Infused Documented by: Magnesium Hydroxide (Magnesium Hydroxide 30 Ml Udc) 30 ml PO DAILY PRN PRN PRN Reason: Constipation Morphine Sulfate (Morphine 2 Mg/Ml Syringe) 2 mg IV Q3H PRN PRN PRN Reason: Pain Score 6-10 Last Admin: 05/03/20 21:06 Dose: 2 mg Documented by: Oxycodone HCl (Oxycodone 5 Mg Tablet) 5 mg PO Q4H PRN PRN PRN Reason: Pain Score 4-5 Last Admin: 05/04/20 20:54 Dose: 5 mg Documented by: Prochlorperazine Edisylate (Prochlorperazine 10 Mg/2 Ml Vial) 5 mg IV Q4H PRN PRN PRN Reason: Breakthrough nausea/vomiting Senna/Docusate Sodium (Senna/Docusate Sodium 1 Tablet) 2 tablet PO BID PRN PRN PRN Reason: Constipation Sodium Chloride (0.9% Saline Lock 10 Ml Syringe) 10 - 40 ml IV UD PRN PRN Reason: SALINE FLUSH Last Admin: 05/04/20 20:58 Dose: 10 ml Documented by: Medical Necessity - Tobacco Use Smoking Status: Former smoker Tobacco Use: Non-smoker Assessment/Plan All Active Problems Inability to ambulate due to right ankle or foot (Acute) Acute right ankle pain (Acute) Septic arthritis of right ankle (Acute) 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 Her WBC decreased to 10.3 this morning. This patient is currently afebrile with stable vital signs. Ankle aspiration negative culture results so far. Her positive blood cultures are noted; Staphylococcus aureus. AB narrowed to cefazolin per ID. Her bilateral DVTs are noted. Management per primary team appreciated; Andi. She was advised to maintain a nonweightbearing status to the right lower extremity and to use an assistive device. Ok to progress to partial weightbear for transfers if tolerated. She would benefit from ankle-foot orthotic such as a custom Liliane brace. This was offered to her in the outpatient setting and she will follow-up after hospital discharge. We discussed other immobilization options such as a cam walker boot which has benefits of immediate use and some of the cons of this use include potential limb length discrepancy which is concerning given her current back pain. We also discussed some ankle-foot orthotics that fit on the outside of shoes which can also be offered in outpatient setting. To continue assistive device; walker. Surgery for ankle is not recommended at this time. I'll continue to monitor every few days for any clinical changes or progression. Please do not hesitate to call if you have any questions. Brenda He DPM, FACF[facility] [phone]
--- NOTE | 2020-05-05 08:13 | PN_ITS ---
Patient Problems: Active and Suspected Problems Inability to ambulate due to right ankle or foot (Acute) Acute right ankle pain (Acute) Septic arthritis of right ankle (Acute) Reason for Visit: Bilateral lower extremity DVT MSSA bacteremia Subjective: Repeat blood cultures so far negative to date Objective: GENERAL: cooperative HEENT: Atraumatic; EYES; Anicteric, Normal Conjunctiva NECK; supple, normal thyroid, RESPIRATORY: Diminished to auscultation CARDIOVASCULAR: Regular S1 S2, GI: soft, normoactive bowel sounds, : No Renal angle tenderness; EXTREMITIES: No edema, no clubbing, MUSCULOSKELETAL: no muscle waisting NEURO: Awake; no lateralizing signs. SKIN: No Rash PSYCH; Flat affect Vitals/I&O's: Vital Signs Temp Pulse Resp BP Pulse Ox 98.8 F 82 16 122/64 H 95 05/05/20 02:00 05/05/20 02:00 05/05/20 02:00 05/05/20 02:00 05/05/20 02:00 Oxygen Delivery Method Room Air Weight: 58.6 kg Body Mass Index (BMI) 28.0 Intake and Output for Last 24 Hours 05/03/20 05/04/20 05/05/20 23:59 23:59 23:59 Intake Total 1501.13 / 1501.13 330 / 330 110 / 110 Output Total 1400 / 1400 500 / 500 300 / 300 Balance 101.13 / 101.13 -170 / -170 -190 / -190 Microbiology Past 72 Hours 05/01/20 01:10 Fluid - Synovial (joint) Gram Stain - Final 05/01/20 01:10 Fluid - Synovial (joint) Body Fluid Culture - Preliminary No growth-Final to follow 05/01/20 01:10 Fluid - Synovial (joint) Anaerobic Culture - Preliminary No growth in 48 hours. 05/02/20 14:48 Blood Culture (Wb) - Left Hand Blood Culture - Preliminary No growth in 48 hours. 05/01/20 07:45 Aspirate - Ankle Gram Stain - Final 05/01/20 07:45 Aspirate - Ankle Wound Culture - Final No growth aerobically. 05/01/20 07:45 Aspirate - Ankle Anaerobic Culture - Preliminary No growth in 48 hours. 05/01/20 00:26 Blood Culture (Wb) - Anticubital Left Blood Culture - Final Staphylococcus aureus 05/01/20 00:30 Blood Culture (Wb) - Anticubital Right Bacteria Detection (PCR) - Final Staphylococcus aureus 05/01/20 00:30 Blood Culture (Wb) - Anticubital Right Blood Culture - Final Staphylococcus aureus 05/02/20 18:30 Stool Stool Occult Blood (TIMOTHY) - Final Laboratory Results 05/04/20 13:45: Vancomycin Trough 1.8 L 05/05/20 06:20: WBC 10.3, RBC 3.52 L, Hgb 10.0 L, Hct 31.2 L, MCV 88.6, MCH 28.4, MCHC 32.1, RDW Std Deviation 46.1 H, RDW Coeff of Kristine 14.2, Plt Count 594 H, MPV 9.3 05/05/20 06:20: Sodium 135 L, Potassium 3.8, Chloride 104, Carbon Dioxide 24.0, Anion Gap 7, BUN 12, Creatinine 0.57, Estim Creat Clear Calc 37.60, Est GFR (MDRD) Af Amer 134, Est GFR (MDRD) Non-Af 110, BUN/Creatinine Ratio 20.9 H, Glucose 106, Calcium 9.1 Current Medications Acetaminophen (Acetaminophen 325 Mg Tablet) 650 mg PO Q6H PRN PRN PRN Reason: Pain Score 1-10/Temp > 100.7 F Last Admin: 05/04/20 02:17 Dose: 650 mg Documented by: Apixaban (Apixaban 5 Mg Tablet) 10 mg PO BID [facility] Last Admin: 05/04/20 20:58 Dose: 10 mg Documented by: Sodium Chloride () 250 mls @ 15 mls/hr IV .[id number] PRN PRN Reason: Saline Flush Sodium Chloride () 250 mls @ 15 mls/hr IV .[id number] PRN PRN Reason: Additional IVPB Infusion Cefazolin Sodium 2 gm/ Sodium (Chloride) 110 mls @ 150 mls/hr IV Q8 [facility] Last Infusion: 05/05/20 05:59 Dose: Infused Documented by: Magnesium Hydroxide (Magnesium Hydroxide 30 Ml Udc) 30 ml PO DAILY PRN PRN PRN Reason: Constipation Morphine Sulfate (Morphine 2 Mg/Ml Syringe) 2 mg IV Q3H PRN PRN PRN Reason: Pain Score 6-10 Last Admin: 05/03/20 21:06 Dose: 2 mg Documented by: Oxycodone HCl (Oxycodone 5 Mg Tablet) 5 mg PO Q4H PRN PRN PRN Reason: Pain Score 4-5 Last Admin: 05/04/20 20:54 Dose: 5 mg Documented by: Prochlorperazine Edisylate (Prochlorperazine 10 Mg/2 Ml Vial) 5 mg IV Q4H PRN PRN PRN Reason: Breakthrough nausea/vomiting Senna/Docusate Sodium (Senna/Docusate Sodium 1 Tablet) 2 tablet PO BID PRN PRN PRN Reason: Constipation Sodium Chloride (0.9% Saline Lock 10 Ml Syringe) 10 - 40 ml IV UD PRN PRN Reason: SALINE FLUSH Last Admin: 05/04/20 20:58 Dose: 10 ml Documented by: Medical Necessity - Tobacco Use Smoking Status: Former smoker Tobacco Use: Non-smoker Assessment/Plan All Active Problems Inability to ambulate due to right ankle or foot (Acute) Acute right ankle pain (Acute) Septic arthritis of right ankle (Acute) Patient is a 69-year-old lady admitted with right ankle pain. Subsequent evaluation in the hospital demonstrated evidence of bilateral lower extremity DVTs 1. Right ankle pain ?Secondary to arthritis. Patient had knee aspirated cultures so far negative to date. Consultation placed to both podiatry -05/03/2020; culture from aspirate from R ankle so far negative 2. Staph aureus bacteremia ?Patient had recently been diagnosed with staph UTI treated with Bactrim however culture showed resistance. Patient is currently on vancomycin. Consultation placed to infectious disease -MRI with and without contrast involving the cervical thoracic as well as lumbar spine to evaluate for epidural abscess given patient significant neck and low back pain -05/03/2020;-Patient underwent MRI of the cervical thoracic and lumbar spine with no evidence of epidural abscess or discitis. Repeat blood cultures positive for staph. Consult was placed to infectious disease patient seen by Dr. Deluca his notes and recommendations reviewed -05/04/2020; repeat blood cultures since the day prior -05/05/2020; repeat blood cultures so far negative to date. Will await ID recommendations prior to making decisions regarding discharge 3. Bilateral lower extremity DVT ?Patient is on heparin for now -05/04/2020; patient was on heparin which was discontinued the previous day. Subsequently started on Eliquis 4. Anemia - Secondary to chronic disorder monitoring H&H and transfuse if patient becomes symptomatic or hemoglobin falls below 7 5. Mild hyponatremia -we will continue to monitor Inpatient E&M: [id number] Subs Hosp L2
[2020-05-05 09:44] VITALS: BP 108/64; PULSE 99; RESP 16; TEMP 36.8; O2SAT 96
[2020-05-05] MEDS: APIXABAN 5 MG TABLET 10 MG PO ×2 (09:51→21:18)
--- NOTE | 2020-05-05 10:55 | CASEMGMT ---
ABDULAZIZ ESCOBEDO NOTE: Per Dr Deluca, pt will need IV atb's @ d/c. Script received for Ceftriaxone 2 GM daily x 38 days, w/stop date of 06/13/20. ABDULAZIZ ESCOBEDO to room to talk with pt. Pt made aware of need for IV atb's @ d/c. Explained process of HHC for IV Atb teaching @ home w/her and family for self administration and also option of SNF. She states she would prefer to go home but she is not sure if her daughter will be willing/able to do IV atb home infusion and she also voiced concern w/NWB status to rt foot and need for medical equip to be able to get around safely in her daughters home. Explained DME could be obtained for her. She states she would need walker and BSC @ home. Provided w/list of local DME companies. She denies preference and is agreeable to [employer]. Pt made aware there would be some [id number] cost for IV atb's @ home and made aware this could be determined and info given to her, as this may change her decision on d/c plan. Provided w/list of local [facility] agencies w/quality performance ratings. She denies having preference. She also denies preference of Infusion company and is agreeable to [facility]. Script for Ceftriaxone and demographics faxed to [facility]. Call placed to [facility] and spoke w/Daily. Financials processed, and per Daily, pt has $100 deductible, of which $13 has been met. Once deductible is met, med/supplies would be covered @ 100%. Pt made aware. She asks for ABDULAZIZ ESCOBEDO to contact her daughter, Nellie, to discuss discharge plan with her, as she still is not sure if Nellie will be able to do Home IV administration and she wants to do what is safest for her. She states she would be agreeable to a SNF. Per therapy, pt requires someone w/her 24/ as she cannot get up safely on her own. Call placed to Nellie and discussed d/c plan w/her and she was made aware pt needs someone w/her at all times when ambulating and also IV atb's x 6 weeks. She states she is not able to be home 24/7 and that she has some mental health issues and is nervous she may get overwhelmed w/taking care of her mother. She states she wants what is safest for her mother and is agreeable to pt going to a SNF, if that is what her mother wants. ABDULAZIZ ESCOBEDO in room to talk w/pt again. She states she feels going to a SNF would be safest and states [facility] is her 1st choice. RAJAT Acevedo, made aware. Dr Garcia also made aware d/c plan is SNF. Cielo LEMOS RN CM
--- NOTE | 2020-05-05 11:22 | PN.ID_ITS ---
Patient Problems: Active and Suspected Problems Inability to ambulate due to right ankle or foot (Acute) Acute right ankle pain (Acute) Septic arthritis of right ankle (Acute) Subjective: Feeling better, no fever, back and ankle improved. - Physical Exam Vitals/I&O's: Vital Signs Temp Pulse Resp BP Pulse Ox 98.2 F 99 16 108/64 96 05/05/20 09:44 05/05/20 09:44 05/05/20 09:44 05/05/20 09:44 05/05/20 09:44 Oxygen Delivery Method Room Air Weight: 58.6 kg Body Mass Index (BMI) 28.0 Intake and Output for Last 24 Hours 05/03/20 05/04/20 05/05/20 23:59 23:59 23:59 Intake Total 1501.13 / 1501.13 330 / 330 110 / 110 Output Total 1400 / 1400 500 / 500 300 / 300 Balance 101.13 / 101.13 -170 / -170 -190 / -190 General: Alert, Cooperative, No apparent distress Lungs: Clear to auscultation, Normal air movement Cardiovascular: Regular rate, Regular Rhythm Abdomen: Soft, Non Tender, Non-Distended Skin: No rashes Microbiology Past 72 Hours 05/03/20 10:10 Blood Culture (Wb) - Anticubital Right Blood Culture - Preliminary No growth in 48 hours. 05/01/20 01:10 Fluid - Synovial (joint) Gram Stain - Final 05/01/20 01:10 Fluid - Synovial (joint) Body Fluid Culture - Preliminary No growth-Final to follow 05/01/20 01:10 Fluid - Synovial (joint) Anaerobic Culture - Preliminary No growth in 48 hours. 05/02/20 14:48 Blood Culture (Wb) - Left Hand Blood Culture - Preliminary No growth in 48 hours. 05/01/20 07:45 Aspirate - Ankle Gram Stain - Final 05/01/20 07:45 Aspirate - Ankle Wound Culture - Final No growth aerobically. 05/01/20 07:45 Aspirate - Ankle Anaerobic Culture - Preliminary No growth in 48 hours. 05/01/20 00:26 Blood Culture (Wb) - Anticubital Left Blood Culture - Final Staphylococcus aureus 05/01/20 00:30 Blood Culture (Wb) - Anticubital Right Bacteria Detection (PCR) - Final Staphylococcus aureus 05/01/20 00:30 Blood Culture (Wb) - Anticubital Right Blood Culture - Final Staphylococcus aureus 05/02/20 18:30 Stool Stool Occult Blood (TIMOTHY) - Final Laboratory Results 05/04/20 13:45: Vancomycin Trough 1.8 L 05/05/20 06:20: WBC 10.3, RBC 3.52 L, Hgb 10.0 L, Hct 31.2 L, MCV 88.6, MCH 28.4, MCHC 32.1, RDW Std Deviation 46.1 H, RDW Coeff of Kristine 14.2, Plt Count 594 H, MPV 9.3 05/05/20 06:20: Sodium 135 L, Potassium 3.8, Chloride 104, Carbon Dioxide 24.0, Anion Gap 7, BUN 12, Creatinine 0.57, Estim Creat Clear Calc 37.60, Est GFR (MDRD) Af Amer 134, Est GFR (MDRD) Non-Af 110, BUN/Creatinine Ratio 20.9 H, Glucose 106, Calcium 9.1 Current Medications Acetaminophen (Acetaminophen 325 Mg Tablet) 650 mg PO Q6H PRN PRN PRN Reason: Pain Score 1-10/Temp > 100.7 F Last Admin: 05/04/20 02:17 Dose: 650 mg Documented by: Apixaban (Apixaban 5 Mg Tablet) 10 mg PO BID [facility] Last Admin: 05/05/20 09:51 Dose: 10 mg Documented by: Sodium Chloride () 250 mls @ 15 mls/hr IV .[id number] PRN PRN Reason: Saline Flush Sodium Chloride () 250 mls @ 15 mls/hr IV .[id number] PRN PRN Reason: Additional IVPB Infusion Cefazolin Sodium 2 gm/ Sodium (Chloride) 110 mls @ 150 mls/hr IV Q8 [facility] Last Infusion: 05/05/20 05:59 Dose: Infused Documented by: Magnesium Hydroxide (Magnesium Hydroxide 30 Ml Udc) 30 ml PO DAILY PRN PRN PRN Reason: Constipation Morphine Sulfate (Morphine 2 Mg/Ml Syringe) 2 mg IV Q3H PRN PRN PRN Reason: Pain Score 6-10 Last Admin: 05/03/20 21:06 Dose: 2 mg Documented by: Oxycodone HCl (Oxycodone 5 Mg Tablet) 5 mg PO Q4H PRN PRN PRN Reason: Pain Score 4-5 Last Admin: 05/04/20 20:54 Dose: 5 mg Documented by: Prochlorperazine Edisylate (Prochlorperazine 10 Mg/2 Ml Vial) 5 mg IV Q4H PRN PRN PRN Reason: Breakthrough nausea/vomiting Senna/Docusate Sodium (Senna/Docusate Sodium 1 Tablet) 2 tablet PO BID PRN PRN PRN Reason: Constipation Sodium Chloride (0.9% Saline Lock 10 Ml Syringe) 10 - 40 ml IV UD PRN PRN Reason: SALINE FLUSH Last Admin: 05/04/20 20:58 Dose: 10 ml Documented by: Medical Necessity - Tobacco Use Smoking Status: Former smoker Tobacco Use: Non-smoker Route of nutrition/ use of supplements: [] Nutritional Intake: [] IV Site: [] Myers Catheter: [] - Assessment/Plan Antibiotics: [] Assessment/Plan: [] Active and Suspected Problems Inability to ambulate due to right ankle or foot (Acute) Acute right ankle pain (Acute) Septic arthritis of right ankle (Acute) MSSA bacteremia with R ankle suspected septic arthritis and recent mssa in ucx - ankle and urine likely represent hematogenous spread, unclear source. Ankle cx neg. Narrowed abx to cefazolin. Repeat bcx neg so far. TTE showed no veg. Picc in place. If she is going home, plan on 6 weeks iv ceftriaxone 2gm q24h for easier dosing. Stop date 06/13/20. Will need dose of ceftriaxone prior to leaving. ID followup in 2-3 weeks. Will follow
--- NOTE | 2020-05-05 14:41 | CASEMGMT ---
Social Work Note SW received referral for SNF and pt prefers [facility]. SW reviewed [place]'s website, [facility] is not listed as a contracted facility. RAJAT placed a call to [facility] and left message for RAJAT Unger waiting for call back. RAJAT placed a call to [facility] in [facility], TCU would have a bed available tomorrow. SW in to speak with pt. SW introduced self and role at [facility]. Pt is alert and orientated. RAJAT updated pt that this worker did call [facility] and left message regarding pt's insurance. RAJAT informed pt that [facility] is not listed on [facility] [place] website as a contracted facility. SW provided pt with list of SNF that accept pt's insurance with Medicare ratings. Pt agreeable to [facility]CU, states that would probably be better. RAJAT explained TCU does have a bed available and pt will need pre-cert. Pt states understanding. RAJAT placed a call to [facility] in [facility], [facility] will submit for pre-cert. Plan: TCU pending pre-cert Kristina Crabtree EARLY CHILDHOOD SERVICES COORDINATOR, WILLOW ANALYST
[2020-05-05 16:05] VITALS: BP 118/75; PULSE 92; RESP 20; TEMP 37; O2SAT 96
[2020-05-05 20:03] VITALS: BP 126/68; PULSE 94; RESP 18; TEMP 37.4; O2SAT 93
[2020-05-05] MEDS: Acetaminophen 325 MG Tablet 650 MG PO (20:11)
--- NOTE | 2020-05-05 20:49 | DCINST_ITS ---
Weight Bearing Status: Partial weight bearing - right lower limb as tolerated. Use assistive device if needed Keep extremity elevated above heart level: Right Leg Call your doctor if you observe: Fever of 101 or Higher, Calf discomfort, Uncontrolled pain Allergies/Adverse Reactions: Allergies No Known Allergies Allergy (Verified 05/01/20 00:11) Medications to take at Discharge Ceftriaxone 2 gm IV Q24 #38 vial 05/05/20 The following prescriptions were given: Ceftriaxone 2 gm IV Q24 #38 vial Prescription Printed Primary Care Physician: Care Physician,No Primary [Primary Care Provider] - Test Results: Test results from this visit will be discussed in further detail at your follow- up appointment, if applicable. Please Follow Up With: Brenda He DPM When: 1-2 weeks after discharge at [facility]; call [phone]
[2020-05-06 02:05] VITALS: BP 113/57; PULSE 79; RESP 16; TEMP 37.1; O2SAT 95
[2020-05-06] MEDS: Cefazolin 2 GM in 0.9% Normal Saline 100 ML IV (04:59)
[2020-05-06] MEDS: Acetaminophen 325 MG Tablet 650 MG PO (07:00)
--- NOTE | 2020-05-06 08:45 | PN_ITS ---
Patient Problems: Active and Suspected Problems Inability to ambulate due to right ankle or foot (Acute) Acute right ankle pain (Acute) Septic arthritis of right ankle (Acute) Reason for Visit: Inability to ambulate due to right ankle or foot (Acute) Acute right ankle pain (Acute) Septic arthritis of right ankle (Acute) Subjective: Patient seen. Was determined that patient was significantly deconditioned. Requested PT OT and social media campaign manager assistance with plans for patient to be discharged to a senior care facility once insurance precertification is obtained Objective: GENERAL: cooperative HEENT: Atraumatic; EYES; Anicteric, Normal Conjunctiva NECK; supple, normal thyroid, RESPIRATORY: Diminished to auscultation CARDIOVASCULAR: Regular S1 S2, GI: soft, normoactive bowel sounds, : No Renal angle tenderness; EXTREMITIES: No edema, no clubbing, MUSCULOSKELETAL: no muscle waisting NEURO: Awake; no lateralizing signs. SKIN: No Rash PSYCH; Flat affect Vitals/I&O's: Vital Signs Temp Pulse Resp BP Pulse Ox 98.7 F 79 16 113/57 L 95 05/06/20 02:05 05/06/20 02:05 05/06/20 02:05 05/06/20 02:05 05/06/20 02:05 Oxygen Delivery Method Room Air Weight: 59.6 kg Body Mass Index (BMI) 28.0 Intake and Output for Last 24 Hours 05/04/20 05/05/20 05/06/20 23:59 23:59 23:59 Intake Total 330 / 330 330 / 330 110 / 110 Output Total 500 / 500 300 / 300 Balance -170 / -170 30 / 30 110 / 110 Microbiology Past 72 Hours 05/01/20 01:10 Fluid - Synovial (joint) Gram Stain - Final 05/01/20 01:10 Fluid - Synovial (joint) Body Fluid Culture - Final No growth aerobically. 05/01/20 01:10 Fluid - Synovial (joint) Anaerobic Culture - Preliminary No growth in 48 hours. 05/03/20 10:10 Blood Culture (Wb) - Anticubital Right Blood Culture - Preliminary No growth in 48 hours. 05/02/20 14:48 Blood Culture (Wb) - Left Hand Blood Culture - Preliminary No growth in 48 hours. 05/01/20 07:45 Aspirate - Ankle Gram Stain - Final 05/01/20 07:45 Aspirate - Ankle Wound Culture - Final No growth aerobically. 05/01/20 07:45 Aspirate - Ankle Anaerobic Culture - Preliminary No growth in 48 hours. 05/01/20 00:26 Blood Culture (Wb) - Anticubital Left Blood Culture - Final Staphylococcus aureus 05/01/20 00:30 Blood Culture (Wb) - Anticubital Right Bacteria Detection (PCR) - Final Staphylococcus aureus 05/01/20 00:30 Blood Culture (Wb) - Anticubital Right Blood Culture - Final Staphylococcus aureus Current Medications Acetaminophen (Acetaminophen 325 Mg Tablet) 650 mg PO Q6H PRN PRN PRN Reason: Pain Score 1-10/Temp > 100.7 F Last Admin: 05/06/20 07:00 Dose: 650 mg Documented by: Apixaban (Apixaban 5 Mg Tablet) 10 mg PO BID [facility] Last Admin: 05/05/20 21:18 Dose: 10 mg Documented by: Sodium Chloride () 250 mls @ 15 mls/hr IV .[id number] PRN PRN Reason: Saline Flush Sodium Chloride () 250 mls @ 15 mls/hr IV .[id number] PRN PRN Reason: Additional IVPB Infusion Cefazolin Sodium 2 gm/ Sodium (Chloride) 110 mls @ 150 mls/hr IV Q8 [facility] Last Infusion: 05/06/20 05:43 Dose: Infused Documented by: Magnesium Hydroxide (Magnesium Hydroxide 30 Ml Udc) 30 ml PO DAILY PRN PRN PRN Reason: Constipation Morphine Sulfate (Morphine 2 Mg/Ml Syringe) 2 mg IV Q3H PRN PRN PRN Reason: Pain Score 6-10 Last Admin: 05/03/20 21:06 Dose: 2 mg Documented by: Oxycodone HCl (Oxycodone 5 Mg Tablet) 5 mg PO Q4H PRN PRN PRN Reason: Pain Score 4-5 Last Admin: 05/04/20 20:54 Dose: 5 mg Documented by: Prochlorperazine Edisylate (Prochlorperazine 10 Mg/2 Ml Vial) 5 mg IV Q4H PRN PRN PRN Reason: Breakthrough nausea/vomiting Senna/Docusate Sodium (Senna/Docusate Sodium 1 Tablet) 2 tablet PO BID PRN PRN PRN Reason: Constipation Sodium Chloride (0.9% Saline Lock 10 Ml Syringe) 10 - 40 ml IV UD PRN PRN Reason: SALINE FLUSH Last Admin: 05/04/20 20:58 Dose: 10 ml Documented by: Medical Necessity - Tobacco Use Smoking Status: Former smoker Tobacco Use: Non-smoker Assessment/Plan All Active Problems Inability to ambulate due to right ankle or foot (Acute) Acute right ankle pain (Acute) Septic arthritis of right ankle (Acute) Patient is a 69-year-old lady admitted with right ankle pain. Subsequent evaluation in the hospital demonstrated evidence of bilateral lower extremity DVTs 1. Right ankle pain ?Secondary to arthritis. Patient had knee aspirated cultures so far negative to date. Consultation placed to both podiatry -05/03/2020; culture from aspirate from R ankle so far negative 2. Staph aureus bacteremia ?Patient had recently been diagnosed with staph UTI treated with Bactrim however culture showed resistance. Patient is currently on vancomycin. Consultation placed to infectious disease -MRI with and without contrast involving the cervical thoracic as well as lumbar spine to evaluate for epidural abscess given patient significant neck and low back pain -05/03/2020;-Patient underwent MRI of the cervical thoracic and lumbar spine with no evidence of epidural abscess or discitis. Repeat blood cultures positive for staph. Consult was placed to infectious disease patient seen by Dr. Deluca his notes and recommendations reviewed -05/04/2020; repeat blood cultures since the day prior -05/05/2020; repeat blood cultures so far negative to date. Will await ID recommendations prior to making decisions regarding discharge 3. Bilateral lower extremity DVT ?Patient is on heparin for now -05/04/2020; patient was on heparin which was discontinued the previous day. Subsequently started on Eliquis 4. Anemia - Secondary to chronic disorder monitoring H&H and transfuse if patient becomes symptomatic or hemoglobin falls below 7 5. Mild hyponatremia -we will continue to monitor 6. Physical deconditioning - Requested for PT OT eval and social media campaign manager to assist with discharge planning Inpatient E&M: [id number] Subs Hosp L2
[2020-05-06 10:08] VITALS: BP 104/67; PULSE 91; RESP 18; TEMP 36.6; O2SAT 97
[2020-05-06] MEDS: APIXABAN 5 MG TABLET 10 MG PO (10:15)
--- NOTE | 2020-05-06 12:51 | PCM.TXEXTCAR ---
- Diet 05/01/20 11:47 Diet: Regular - General Is pt able to select menu?: Yes Diet Comments: 240ml straw/van Ensure w/break;van ES pud w/lunch;dixon magic cup w/dinner - Routine Orders/Code Status Code Status: Full Code - Wound(s) Puncture Wound Type: Puncture - Therapies Weight Bearing: Non weight bearing Physical Therapy: Eval and Treat Occupational Therapy: Eval and Treat - Allergies/Procedures Done in Hospital Allergies/Adverse Reactions: Allergies No Known Allergies Allergy (Verified 05/01/20 00:11) - Type of Care/Length of Stay Estimated LOS: Convalescent Care Less Than 30 days Type of Care Needed: Skilled Rehab Potential: Good Prognosis: Good - Additional Orders/Day of Discharge Day of Discharge: 05/06/20 - Dietary and Speech Recommendations Dietitian Recommendations/Changes: Continue Regular diet as ordered. Will provide ONS w/ meals for pro/david repletion. Reweigh pt as able to better assess wt trends since intake improved. - Follow Up Care Primary Care Physician: Care Physician,No Primary [Primary Care Provider] - Please Follow Up With: Brenda He DPM When: 1-2 weeks after discharge at [facility]; call [phone]
--- NOTE | 2020-05-06 12:53 | DS.PCM_ITS ---
Discharge Date and Diagnosis - Problem List Patient Problems: Active and Suspected Problems Inability to ambulate due to right ankle or foot (Acute) Acute right ankle pain (Acute) Septic arthritis of right ankle (Acute) Date of Admission: 05/01/20 Date of Discharge: 05/06/20 - Primary Discharge Diagnosis Acute Problems: Active Problems Inability to ambulate due to right ankle or foot (Acute) Acute right ankle pain (Acute) Septic arthritis of right ankle (Acute) Hospital Course and Treatment Summary of Care Provided: Patient is a 69-year-old lady admitted with right ankle pain. Subsequent evaluation in the hospital demonstrated evidence of bilateral lower extremity DVTs 1. Right ankle pain ?Secondary to arthritis. Patient had knee aspirated cultures so far negative to date. Consultation placed to both podiatry -05/03/2020; culture from aspirate from R ankle so far negative 2. Staph aureus bacteremia ?Patient had recently been diagnosed with staph UTI treated with Bactrim however culture showed resistance. Patient is currently on vancomycin. Consultation placed to infectious disease -MRI with and without contrast involving the cervical thoracic as well as lumbar spine to evaluate for epidural abscess given patient significant neck and low back pain -05/03/2020;-Patient underwent MRI of the cervical thoracic and lumbar spine with no evidence of epidural abscess or discitis. Repeat blood cultures positive for staph. Consult was placed to infectious disease patient seen by Dr. Deluca his notes and recommendations reviewed -05/04/2020; repeat blood cultures since the day prior -05/05/2020; repeat blood cultures so far negative to date. Will await ID recommendations prior to making decisions regarding discharge -05/06/2020; [facility] on Rocephin with duration as recommended by infectious disease 3. Bilateral lower extremity DVT ?Patient is on heparin for now -05/04/2020; patient was on heparin which was discontinued the previous day. Subsequently started on Eliquis 4. Anemia - Secondary to chronic disorder monitoring H&H and transfuse if patient becomes symptomatic or hemoglobin falls below 7 5. Mild hyponatremia -we will continue to monitor 6. Physical deconditioning - Requested for PT OT eval and director of social work to assist with discharge planning Patient Problems: Active and Suspected Problems Inability to ambulate due to right ankle or foot (Acute) Acute right ankle pain (Acute) Septic arthritis of right ankle (Acute) Objective: GENERAL: cooperative HEENT: Atraumatic; EYES; Anicteric, Normal Conjunctiva NECK; supple, normal thyroid, RESPIRATORY: Diminished to auscultation CARDIOVASCULAR: Regular S1 S2, GI: soft, normoactive bowel sounds, : No Renal angle tenderness; EXTREMITIES: No edema, no clubbing, NEURO: Awake; no lateralizing signs. SKIN: No Rash - Physical Exam Vitals/I&O's: Vital Signs Temp Pulse Resp BP Pulse Ox 97.8 F 91 18 104/67 97 05/06/20 10:08 05/06/20 10:08 05/06/20 10:08 05/06/20 10:08 05/06/20 10:08 Oxygen Delivery Method Room Air Weight: 59.6 kg Body Mass Index (BMI) 28.0 Intake and Output for Last 24 Hours 05/04/20 05/05/20 05/06/20 23:59 23:59 23:59 Intake Total 330 / 330 330 / 330 110 / 110 Output Total 500 / 500 300 / 300 Balance -170 / -170 30 / 30 110 / 110 Microbiology Past 72 Hours 05/01/20 01:10 Fluid - Synovial (joint) Gram Stain - Final 05/01/20 01:10 Fluid - Synovial (joint) Body Fluid Culture - Final No growth aerobically. 05/01/20 01:10 Fluid - Synovial (joint) Anaerobic Culture - Final No growth in 5 days. 05/01/20 07:45 Aspirate - Ankle Gram Stain - Final 05/01/20 07:45 Aspirate - Ankle Wound Culture - Final No growth aerobically. 05/01/20 07:45 Aspirate - Ankle Anaerobic Culture - Final No growth in 5 days. 05/03/20 10:10 Blood Culture (Wb) - Anticubital Right Blood Culture - Preliminary No growth in 48 hours. 05/02/20 14:48 Blood Culture (Wb) - Left Hand Blood Culture - Preliminary No growth in 48 hours. Current Medications Acetaminophen (Acetaminophen 325 Mg Tablet) 650 mg PO Q6H PRN PRN PRN Reason: Pain Score 1-10/Temp > 100.7 F Last Admin: 05/06/20 07:00 Dose: 650 mg Documented by: Apixaban (Apixaban 5 Mg Tablet) 10 mg PO BID HUSAM Last Admin: 05/06/20 10:15 Dose: 10 mg Documented by: Sodium Chloride () 250 mls @ 15 mls/hr IV .[id number] PRN PRN Reason: Saline Flush Sodium Chloride () 250 mls @ 15 mls/hr IV .[id number] PRN PRN Reason: Additional IVPB Infusion Cefazolin Sodium 2 gm/ Sodium (Chloride) 110 mls @ 150 mls/hr IV Q8 HUSAM Last Infusion: 05/06/20 05:43 Dose: Infused Documented by: Magnesium Hydroxide (Magnesium Hydroxide 30 Ml Udc) 30 ml PO DAILY PRN PRN PRN Reason: Constipation Morphine Sulfate (Morphine 2 Mg/Ml Syringe) 2 mg IV Q3H PRN PRN PRN Reason: Pain Score 6-10 Last Admin: 05/03/20 21:06 Dose: 2 mg Documented by: Oxycodone HCl (Oxycodone 5 Mg Tablet) 5 mg PO Q4H PRN PRN PRN Reason: Pain Score 4-5 Last Admin: 05/04/20 20:54 Dose: 5 mg Documented by: Prochlorperazine Edisylate (Prochlorperazine 10 Mg/2 Ml Vial) 5 mg IV Q4H PRN PRN PRN Reason: Breakthrough nausea/vomiting Senna/Docusate Sodium (Senna/Docusate Sodium 1 Tablet) 2 tablet PO BID PRN PRN PRN Reason: Constipation Sodium Chloride (0.9% Saline Lock 10 Ml Syringe) 10 - 40 ml IV UD PRN PRN Reason: SALINE FLUSH Last Admin: 05/04/20 20:58 Dose: 10 ml Documented by: Discharge Diet: No Restrictions Discharge Activity: Return to Normal Activity Weight Bearing Status: Partial weight bearing - right lower limb as tolerated. Use assistive device if needed Keep extremity elevated above heart level: Right Leg Call your doctor if you observe: Fever of 101 or Higher, Calf discomfort, Uncontrolled pain Home Medications: Medications to take at Discharge Ceftriaxone 2 gm IV Q24 #38 vial 05/05/20 Acetaminophen [Tylenol Tablet] 650 mg PO Q6H PRN PRN tab 05/06/20 Apixaban [Eliquis] 5 mg PO BID tab 05/06/20 Magnesium Hydroxide [Milk Of Magnesia] 30 ml PO DAILY PRN PRN udc 05/06/20 Senna/Docusate Sodium [Senokot-S] 2 tab PO BID PRN PRN tab 05/06/20 Following Prescriptions Were Given to Patient: Ceftriaxone 2 gm IV Q24 #38 vial Prescription Printed Primary Care Physician: Care Physician,No Primary [Primary Care Provider] - Please Follow Up With: Brenda He DPM When: 1-2 weeks after discharge [facility]; call [phone] Disposition: Home Minutes spent on discharge:: 35 Patient Condition:: Stable Medical Necessity - Tobacco Use Smoking Status: Former smoker Tobacco Use: Non-smoker Meaningful Use Info Meaningful Use Diagnoses (Choose all that apply): None applicable Inpatient E&M: 65773 Disch Hosp
--- NOTE | 2020-05-06 13:15 | CASEMGMT ---
Social Work Note SW received message from Tia in TCU stating pre-cert was obtained and pt is able to discharge today. SW updated physician. Pt is medically cleared for discharge. SW in to speak with pt and updated pt pre-cert was obtained and pt will discharge to TCU today. Pt states understanding. Plan: TCU today Kristina Crabtree WINDOW ASSEMBLER, [employer]
--- NOTE | 2020-05-06 13:54 | NURSING ---
Report called the [facility] on TCU.
== END 2020-05-06 15:10 | disposition skilled nursing facility (03) | DRG 549 ==
LOC: ED 05-01 01:58 → MS3 05-01 02:23
PROVIDERS: Podiatrist; Student in an Organized Health Care Education/Training Program; Admitting Provider Internal Medicine; Emergency Provider Emergency Medicine; Visit Provider Internal Medicine
DX: M00.9 Pyogenic arthritis, unspecified (principal); R78.81 Bacteremia; E87.1 Hypo-osmolality and hyponatremia; N39.0 Urinary tract infection, site not specified; Z16.29 Resistance to other single specified antibiotic; B95.61 Methicillin susceptible Staphylococcus aureus infection as the cause of diseases classified elsewhere; M19.171 Post-traumatic osteoarthritis, right ankle and foot; I82.463 Acute embolism and thrombosis of calf muscular vein, bilateral; M43.6 Torticollis; M62.830 Muscle spasm of back; D63.8 Anemia in other chronic diseases classified elsewhere; E83.42 Hypomagnesemia; E87.6 Hypokalemia; E88.09 Other disorders of plasma-protein metabolism, not elsewhere classified; Z20.822 Contact with and (suspected) exposure to COVID-19; S82.891S Other fracture of right lower leg, sequela; Y93.31 Activity, mountain climbing, rock climbing and wall climbing; Z79.899 Other long term (current) drug therapy; Z87.891 Personal history of nicotine dependence
CPT/HCPCS: 36415; 72156; 72157; 72158; 73610; 73721; 80048; 80053; 80076; 80202; 81002; 82274; 82728; 83540; 83550; 83735; 83880; 84550; 85025; 85027; 85045; 85610; 85652; 85730; 86140; 87040; 87070; 87075; 87077; 87149; 87186; 87205; 87426; 87640; 89050; 89051; 89060; 93306; 93970; 97110; 97162; 97166; 97530; 97535; 97803; 99251; 99285; A9575; J7030; J7040; A4216; G0463; J0295

== ENCOUNTER 2020-05-06 15:36 | Inpatient (IN) | payer BC, MEDICARE, SELFPAY ==
[2020-05-01 03:36] VITALS: BMI 28.0
[2020-05-06 15:39] VITALS: BP 116/68; PULSE 85; RESP 18; TEMP 36.1; O2SAT 96
--- NOTE | 2020-05-06 15:48 | HP.PCM_ITS ---
Problem List (1) Debility Status: Acute (2) DVT, bilateral lower limbs Status: Acute (3) Urinary tract infection Status: Acute (4) Bacteremia due to methicillin susceptible Staphylococcus aureus (MSSA) Status: Acute (5) Septic arthritis of right ankle Status: Acute (6) Anemia Status: Chronic History of Present Illness Date of Admission: 05/06/20 Chief Complaint: Here for rehabilitation, strengthening, intravenous antibiotics, prior to discharge home with family(son). 05/01/2020 The patient is a 69 year old Female with below past medical history presented to [facility] Emergency Department with right lower extremity injury. 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 05/01/2020 Echo normal LV size. Left ventricular systolic function normal. EF 60%. Stage 1 diastolic dysfunction. 05/01/2020 Doppler ultrasound bilateral lower extremity positive bilateral lower extremity DVT. 05/01/2020 MRI right ankle showed cellulitis, no abscess, no osteomyelitis. Worsening right ankle pain, pain in legs with walking. Bilateral lower extremity edema which is new, left worse than right, unable to w alk. WBC 17. Blood cultures sent, right ankle arthrocentesis revealed mostly blood. Vancomycin IV given. 05/01/2020 Admit to Hospital. Vancomycin IV, Unasyn IV for right ankle cellulitis. 05/01/2020 Heparin drip bilateral lower extremity DVT. 05/02/2020 Staph bacteremia secondary recent Staph UTI resistant to prescribed Bactrim. MRI CTL spine ordered to rule out epidural abscess due to neck, back pain. 05/02/2020 MRI CTL spine negative discitis, osteomyelitis. 05/02/2020 Infectious Disease for MSSA bacteremia, right ankle septic arthritis, recent MSSA urine culture. Vancomycin/Unasyn, repeat blood cultures. 05/03/2020 Right ankle culture negative to date. Repeat blood cultures positive staph. 05/04/2020 Vancomycin for right ankle septic arthritis. Heparin changed to Eliquis for bilateral lower extremity DVT. Monitor anemia, transfuse if hemoglobin < 7.0. 05/05/2020 [facility] Vancomycin narrowed to Cefazolin, then Ceftriaxone for ease of administration . 6 weeks IV Ceftriaxone 2GM IV Q24H thru 06/13/2020 per Infectious Disease. 05/06/2020 Admit to TCU with debility, here for rehabilitation, strengthening, intravenous antibiotics, prior to discharge home with family. Past Medical History Past Medical History (Chronic Problems): Chronic Problems Anemia (Chronic) Allergies No Known Allergies Allergy (Verified 05/01/20 00:11) Home Medications: Ambulatory Orders Medication Instructions Recorded Acetaminophen [Tylenol Tablet] 650 mg PO Q6H PRN PRN tab 05/06/20 Apixaban [Eliquis] 5 mg PO BID 05/06/20 Ceftriaxone 2 gm IV Q24 05/06/20 Magnesium Hydroxide [Milk Of 30 ml PO DAILY PRN PRN udc 05/06/20 Magnesia] Senna/Docusate Sodium [Senokot-S] 2 tab PO BID PRN PRN tab 05/06/20 Surgical History: - - R ankle ORIF and subsequent hardware removal, urolift, salpingectomy for ectopic Psychiatric History: 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 Smoking Status: Former smoker Tobacco Use: Non-smoker Drugs: None - *Family History Maternal History Items: Heart Disease Paternal History Items: No pertinent history Review of Systems Constitutional: Denies: Chills, Fever, Weight Change HEENT: Denies: Head Aches, Sinus Congestion, Sinus Drainage Cardiovascular: Denies: Chest Pain, Palpitations Respiratory: Denies: Cough, Shortness of breath at rest, Sputum production Gastrointestinal: Denies: Abdominal Pain, Nausea, Vomiting Genitourinary: Denies: Dysuria Musculoskeletal: Reports: - - Right ankle pain.. Denies: Joint Pain, Joint Tenderness Skin: Denies: Rash, Wounds Neurological: Denies: Numbness, Tingling, Focal weakness Psychiatric: Denies: Anxiety, Depression, Homicidal Ideations, Suicidal Ideations Hematologic/ Lymphatic: Denies: Easy Bruising, Easy Bleeding VTE Information - Inpt Only VTE Present on Admission: Yes VTE Mechan Device Prophylaxis: Knee High FRANDY Hose VTE Pharm Prophylaxis ordered?: No Reason prophylaxis not ordered:: Treatment Not Indicated Patient Problems: Active and Suspected Problems Septic arthritis of right ankle (Acute) Debility (Acute) DVT, bilateral lower limbs (Acute) Urinary tract infection (Acute) Bacteremia due to methicillin susceptible Staphylococcus aureus (MSSA) (Acute) - Physical Exam Vitals/I&O's: Vital Signs Temp Pulse Resp BP Pulse Ox 96.9 F L 85 18 116/68 96 05/06/20 15:39 05/06/20 15:39 05/06/20 15:39 05/06/20 15:39 05/06/20 15:39 Oxygen Delivery Method Room Air Body Mass Index (BMI) 28.0 General: Alert, Oriented x3, Cooperative HEENT: Atraumatic, PERRLA, EOMI, Normocephalic Neck: Supple, No JVD, Negative Carotid Bruits Lungs: Clear to auscultation, Normal air movement Cardiovascular: Regular rate, No murmurs Abdomen: Bowel Sounds Present, Soft, Non Tender Extremities: No edema, Capillary Refill Less than 3 Seconds, - - Right ankle JUAN LUIS, right upper extremity PICC line. Skin: No rashes, No breakdown Musculoskeletal: No Tenderness to Palpation of Joints or Extremities Neurological: Cranial nerves II-XII grossly intact Psych/Mental Status: Normal Affect, Appropriate Current Medications Acetaminophen (Acetaminophen 325 Mg Tablet) 650 mg PO Q6H PRN PRN PRN Reason: Pain Score 1-10/Temp > 100.7 F Apixaban (Apixaban 5 Mg Tablet) 5 mg PO BID [facility] Ceftriaxone Sodium (Ceftriaxone 2 Gm Vial) 2 gm IV Q24 HUSAM Stop: 06/13/20 15:42 Magnesium Hydroxide (Magnesium Hydroxide 30 Ml Udc) 30 ml PO DAILY PRN PRN PRN Reason: Constipation Senna/Docusate Sodium (Senna/Docusate Sodium 1 Tablet) 2 tablet PO BID PRN PRN PRN Reason: Constipation Assessment/Plan All Active Problems Inability to ambulate due to right ankle or foot (Acute) Acute right ankle pain (Acute) Septic arthritis of right ankle (Acute) Debility (Acute) DVT, bilateral lower limbs (Acute) Urinary tract infection (Acute) Bacteremia due to methicillin susceptible Staphylococcus aureus (MSSA) (Acute) 69 year old female with below past medical history hospitalized for right ankle septic arthritis, MSSA bacteremia secondary to MSSA urinary tract infection, complicated by bilateral lower extremity DVT, admitted to TCU with debility, here for rehabilitation, strengthening, intravenous antibiotics, prior to discharge home with family. * Debility - PT/OT. * Pain - Tylenol 1000MG Q6H PRN pain (1-10). * Bowel - Miralax 17GM daily, Senna/colace 2 tablets twice daily PRN, Milk of Magnesium 30ML daily PRN. * Adult immunization - Administer Prevnar 13, Pneumovax 23, Fluzone, COVID19 vaccine as appropriate. * DVT prophylaxis - Not necessary, on treatment for DVT. * Bilateral lower extremity DVT - Eliquis 5MG BID thru 07/30/2020 to complete 3 months therapy. * MSSA bacteremia/right ankle septic arthritis/MSSA UTI - Ceftriaxone 2GM IV Q24H thru 06/13/2020.
[2020-05-06 15:58] VITALS: BMI 25.8
[2020-05-06 16:04] VITALS: BMI 25.8
[2020-05-06] MEDS: APIXABAN 5 MG TABLET PO (17:43)
[2020-05-06] MEDS: 0.9% Saline Lock 10 ML Syringe IV (17:50)
[2020-05-06] MEDS: Acetaminophen 500 MG Tablet 1000 MG PO (21:45)
[2020-05-07 06:21] VITALS: BP 128/73; PULSE 82; RESP 16; TEMP 36.7; O2SAT 96
[2020-05-07] MEDS: APIXABAN 5 MG TABLET PO ×2 (06:22→17:52)
[2020-05-07] MEDS: Acetaminophen 500 MG Tablet 1000 MG PO (07:03)
[2020-05-07 08:16] LABS: Absolute Lymphocyte Count 1.37 X10^3/uL (0.83-4.51); Absolute Neutrophil Count 9.8 X10^3/uL (2.0-7.7); Basophil# 0.08 X10^3/uL; Basophil% 0.6 % (0-1); Eosinophil# 0.09 X10^3/uL; Eosinophils% 0.7 % (0-5); Hematocrit 30.7 % (37-47); Hemoglobin 9.7 g/dL (12.0-15.0); Lymphocyte # 1.37 X10^3/ul (4.0); Lymphocyte % 11.1 % (19-41); Mean Corp Hgb Conc 31.6 g/dL (32-36); Mean Corpuscular Hgb 27.9 pg (27.0-32.0); Mean Corpuscular Volume 88.2 fL (81-99); Mean Platelet Vol. 9.3 fl (6.2-12.0); Monocyte# 0.91 X10^3/uL; Monocyte% 7.4 % (0-10); NRBC Flagged by Analyzer 0 % (0-5); Neutrophil # 9.76 X10^3/uL (2.7-7.7); Neutrophil % 79.1 % (47-70); Platelet Count 628 K/mm3 (150-450); RBC Distribution Width CV 14.5 % (11.6-14.6); RBC Distribution Width SD 46.6 fl (35.1-43.9); Red Blood Count 3.48 M/mm3 (4.2-5.4); White Blood Count 12.3 K/mm3 (4.4-11.0)
[2020-05-07 08:50] LABS: Anion Gap 9 (5-15); BUN 16 mg/dL (7-18); BUN/Creat Ratio 29.1 RATIO (10-20); Calcium,Total 9.4 mg/dL (8.5-10.1); Chloride 103 mmol/L (98-107); Creatinine, Serum 0.55 mg/dL (0.55-1.02); EST Glomerular Filtration Rate 116 mL/min (>60); Est Glom Filt Rate - Afr Amer 140 mL/min (>60); Glucose 102 mg/dL (74-106); Potassium 4.2 mmol/L (3.5-5.1); Sodium Level 135 mmol/L (136-145)
[2020-05-07] MEDS: 0.9% Saline Lock 10 ML Syringe IV (10:38)
[2020-05-07] MEDS: Tuberculin,Purif.prot.deriv. 50 TU/ML Vial 5 ML ID (12:42)
[2020-05-07 14:06] VITALS: BP 113/72; PULSE 87; RESP 16; TEMP 36.9; O2SAT 96
[2020-05-07] MEDS: MELATONIN 10 MG TABLET PO (20:38)
[2020-05-08] MEDS: Acetaminophen 500 MG Tablet 1000 MG PO ×2 (00:46→23:02)
[2020-05-08 04:38] VITALS: BP 111/74; PULSE 69; RESP 18; TEMP 36.8; O2SAT 94
[2020-05-08] MEDS: APIXABAN 5 MG TABLET PO ×2 (04:41→16:20)
[2020-05-08] MEDS: 0.9% Saline Lock 10 ML Syringe IV ×2 (09:44→23:02)
[2020-05-08 13:48] VITALS: BP 128/78; PULSE 84; RESP 15; TEMP 36.9; O2SAT 96
[2020-05-08] MEDS: MELATONIN 10 MG TABLET PO (21:02)
[2020-05-09 05:43] LABS: Hematocrit 31.6 % (37-47)
[2020-05-09 06:25] VITALS: BP 114/75; PULSE 79; RESP 16; TEMP 36.2; O2SAT 94
[2020-05-09] MEDS: APIXABAN 5 MG TABLET PO ×2 (06:29→18:29)
--- NOTE | 2020-05-09 09:37 | PCA ---
Called and spoke with [facility]. Per Judy Barreto will come here to see pt on unit. ABDULAZIZ valdes
[2020-05-09] MEDS: 0.9% Saline Lock 10 ML Syringe IV ×3 (11:41→22:05)
--- NOTE | 2020-05-09 13:26 | PCM.PN.RX ---
<Mignon Floyd M - Last Filed: 05/09/20 13:26> Progress Note - Pharmacy Subjective: TCU ADMISSION Objective: Allergies No Known Allergies Allergy (Verified 05/01/20 00:11) Current Medications Generic Name Dose Route Start Last Admin Trade Name Freq PRN Reason Stop Dose Admin Acetaminophen 1,000 mg 05/06/20 16:17 05/08/20 23:02 Acetaminophen 500 Mg Tablet PO 1,000 mg Q6H PRN PRN Administration PAIN SCORE 1-10 Apixaban 5 mg 05/06/20 18:00 05/09/20 06:29 Apixaban 5 Mg Tablet PO 5 mg BID HUSAM Administration Ceftriaxone Sodium 2 gm/ 50 mls @ 100 mls/hr 05/06/20 16:00 05/09/20 12:49 Sodium Chloride IV 06/13/20 16:01 Infused Q24 HUSAM Infusion Sodium Chloride 250 mls @ 0 mls/hr 05/06/20 17:30 IV .Q0M HUSAM As Directed Sodium Chloride 250 mls @ 15 mls/hr 05/06/20 18:26 05/09/20 11:42 IV 15 mls/hr .[id number] PRN Administration Saline Flush Magnesium Hydroxide 30 ml 05/06/20 15:42 Magnesium Hydroxide 30 Ml Udc PO DAILY PRN PRN Constipation Melatonin 10 mg 05/07/20 22:00 05/08/20 21:02 Melatonin 10 Mg Tablet PO 10 mg QHS HUSAM Administration Polyethylene Glycol 17 gm 05/07/20 06:00 05/09/20 06:29 Polyethylene Glycol 3350 17 Gm Packet PO Not Given DAILY HUSAM Senna/Docusate Sodium 2 tablet 05/06/20 15:42 Senna/Docusate Sodium 1 Tablet PO BID PRN PRN Constipation Sodium Chloride 10 - 40 ml 05/06/20 15:53 05/09/20 12:48 0.9% Saline Lock 10 Ml Syringe IV 10 ml UD PRN Administration Midline Flush Sodium Chloride 10 - 40 ml 05/06/20 18:26 0.9 % Nacl (Sterile) Posiflush 10 Ml IV UD PRN Port access or dressing change Sodium Chloride 10 - 40 ml 05/07/20 16:29 0.9% Saline Lock 10 Ml Syringe IV UD PRN Closed End PICC Flush Sodium Chloride 10 - 40 ml 05/07/20 16:29 0.9 % Nacl (Sterile) Posiflush 10 Ml IV UD PRN Port access or dressing change Tuberculin PPD 5 tu 05/14/20 10:00 Tuberculin,Purif.Prot.Deriv. 50 Tu/Ml Vial ID 05/14/20 10:01 X1 ONE Problem List Septic arthritis of right ankle (Acute) Debility (Acute) DVT, bilateral lower limbs (Acute) Urinary tract infection (Acute) Bacteremia due to methicillin susceptible Staphylococcus aureus (MSSA) (Acute) Anemia (Chronic) Vital Signs Temp Pulse Resp BP Pulse Ox 97.1 F L 79 16 114/75 94 05/09/20 06:25 05/09/20 06:25 05/09/20 06:25 05/09/20 06:25 05/09/20 06:25 Oxygen Delivery Method Room Air Weight: 60 kg Body Mass Index (BMI) 25.8 Sodium 135 mmol/L (136-145) L 05/07/20 08:03 Potassium 4.2 mmol/L (3.5-5.1) 05/07/20 08:03 Chloride 103 mmol/L (98-107) 05/07/20 08:03 Carbon Dioxide 23.0 mmol/L (21.0-32.0) 05/07/20 08:03 Anion Gap 9 (5-15) 05/07/20 08:03 BUN 16 mg/dL (7-18) 05/07/20 08:03 Creatinine 0.55 mg/dL (0.55-1.02) 05/07/20 08:03 Est GFR (MDRD) Af Amer 140 mL/min (>60) 05/07/20 08:03 Est GFR (MDRD) Non-Af 116 mL/min (>60) 05/07/20 08:03 BUN/Creatinine Ratio 29.1 RATIO (10-20) H 05/07/20 08:03 Glucose 102 mg/dL (74-106) 05/07/20 08:03 Assessment/Plan: 1. Pain: Tylenol 1000mg PO Q6h PRN Pain 1-10. Please continue to monitor for increased/decreased S/S pain, PRN medication usage. 2. MSSA UTI/ Septic arthritis/ Bacteremia: Rocephin 2g IV Q24h thru 06/13/20. Please continue to monitor for resolution of infection, S/S recurrent infectious process. 3. Bilateral lower extremity DVT: Eliquis 5mg PO BID. Please continue to monitor for S/S bleeding/bruising, S/S recurrent DVT. 4. Insomnia: Melatonin 10mg PO QHS. Please continue to monitor for medication effectiveness. Psychotropic Medications: None Unnecessary Medications: None Bowel Regimen: Miralax 17g PO Daily, Senna/Docusate 2 tab PO BID PRN, MOM 30mL PO Daily PRN. Please continue to monitor for increased/decreased constipation and/or diarrhea. Date of Note:: 05/09/20 - Provider Comments Provider responsibility: Provider responsible to enter orders to implement recommendations <Elio Suarez Chi - Last Filed: 05/09/20 16:58> Progress Note - Pharmacy Subjective: [] Objective: Allergies No Known Allergies Allergy (Verified 05/01/20 00:11) Current Medications Generic Name Dose Route Start Last Admin Trade Name Freq PRN Reason Stop Dose Admin Acetaminophen 1,000 mg 05/06/20 16:17 05/08/20 23:02 Acetaminophen 500 Mg Tablet PO 1,000 mg Q6H PRN PRN Administration PAIN SCORE 1-10 Apixaban 5 mg 05/06/20 18:00 05/09/20 06:29 Apixaban 5 Mg Tablet PO 5 mg BID HUSAM Administration Ceftriaxone Sodium 2 gm/ 50 mls @ 100 mls/hr 05/06/20 16:00 05/09/20 12:49 Sodium Chloride IV 06/13/20 16:01 Infused Q24 HUSAM Infusion Sodium Chloride 250 mls @ 0 mls/hr 05/06/20 17:30 IV .Q0M HUSAM As Directed Sodium Chloride 250 mls @ 15 mls/hr 05/06/20 18:26 05/09/20 11:42 IV 15 mls/hr .[id number] PRN Administration Saline Flush Magnesium Hydroxide 30 ml 05/06/20 15:42 Magnesium Hydroxide 30 Ml Udc PO DAILY PRN PRN Constipation Melatonin 10 mg 05/07/20 22:00 05/08/20 21:02 Melatonin 10 Mg Tablet PO 10 mg QHS HUSAM Administration Polyethylene Glycol 17 gm 05/07/20 06:00 05/09/20 06:29 Polyethylene Glycol 3350 17 Gm Packet PO Not Given DAILY HUSAM Senna/Docusate Sodium 2 tablet 05/06/20 15:42 Senna/Docusate Sodium 1 Tablet PO BID PRN PRN Constipation Sodium Chloride 10 - 40 ml 05/06/20 15:53 05/09/20 12:48 0.9% Saline Lock 10 Ml Syringe IV 10 ml UD PRN Administration Midline Flush Sodium Chloride 10 - 40 ml 05/06/20 18:26 0.9 % Nacl (Sterile) Posiflush 10 Ml IV UD PRN Port access or dressing change Sodium Chloride 10 - 40 ml 05/07/20 16:29 0.9% Saline Lock 10 Ml Syringe IV UD PRN Closed End PICC Flush Sodium Chloride 10 - 40 ml 05/07/20 16:29 0.9 % Nacl (Sterile) Posiflush 10 Ml IV UD PRN Port access or dressing change Tuberculin PPD 5 tu 05/14/20 10:00 Tuberculin,Purif.Prot.Deriv. 50 Tu/Ml Vial ID 05/14/20 10:01 X1 ONE Problem List Septic arthritis of right ankle (Acute) Debility (Acute) DVT, bilateral lower limbs (Acute) Urinary tract infection (Acute) Bacteremia due to methicillin susceptible Staphylococcus aureus (MSSA) (Acute) Anemia (Chronic) Vital Signs Temp Pulse Resp BP Pulse Ox 96 F L 84 14 111/67 95 05/09/20 15:15 05/09/20 15:15 05/09/20 15:15 05/09/20 15:15 05/09/20 15:15 Oxygen Delivery Method Room Air Weight: 60 kg Body Mass Index (BMI) 25.8 Sodium 135 mmol/L (136-145) L 05/07/20 08:03 Potassium 4.2 mmol/L (3.5-5.1) 05/07/20 08:03 Chloride 103 mmol/L (98-107) 05/07/20 08:03 Carbon Dioxide 23.0 mmol/L (21.0-32.0) 05/07/20 08:03 Anion Gap 9 (5-15) 05/07/20 08:03 BUN 16 mg/dL (7-18) 05/07/20 08:03 Creatinine 0.55 mg/dL (0.55-1.02) 05/07/20 08:03 Est GFR (MDRD) Af Amer 140 mL/min (>60) 05/07/20 08:03 Est GFR (MDRD) Non-Af 116 mL/min (>60) 05/07/20 08:03 BUN/Creatinine Ratio 29.1 RATIO (10-20) H 05/07/20 08:03 Glucose 102 mg/dL (74-106) 05/07/20 08:03 Assessment/Plan: Psychotropic Medications: Unnecessary Medications: Bowel Regimen: - Provider Comments Provider responsibility: Provider responsible to enter orders to implement recommendations Provider Comments to Recommendations by Pharmacy: Agree
[2020-05-09 15:15] VITALS: BP 111/67; PULSE 84; RESP 14; TEMP 35.5; O2SAT 95
--- NOTE | 2020-05-09 15:19 | CASEMGMT ---
Social Work Discussed code status with pt. Pt confirmed full code. MOLST form reviewed, communication to , placed in chart. Racquel King, JOURNALISM INTERN CHILD PSYCHOLOGIST
[2020-05-09] MEDS: MELATONIN 10 MG TABLET PO (22:03)
[2020-05-09] MEDS: Acetaminophen 500 MG Tablet 1000 MG PO (22:05)
[2020-05-10 05:19] VITALS: BP 115/74; PULSE 82; RESP 16; TEMP 36.6; O2SAT 95
[2020-05-10] MEDS: APIXABAN 5 MG TABLET PO ×2 (05:20→16:47)
[2020-05-10] MEDS: 0.9% Saline Lock 10 ML Syringe IV (10:18)
[2020-05-10 11:37] VITALS: BP 127/76; PULSE 88; RESP 16; TEMP 37; O2SAT 98
--- NOTE | 2020-05-10 16:06 | PN_ITS ---
Patient Problems: Active and Suspected Problems Septic arthritis of right ankle (Acute) Debility (Acute) DVT, bilateral lower limbs (Acute) Urinary tract infection (Acute) Bacteremia due to methicillin susceptible Staphylococcus aureus (MSSA) (Acute) Subjective: Patient seen and examined bedside. Patient denies any new pedal complaints. Patient denies any nausea, fever, chills, chest pain, shortness of breath, cough, streaking, purulence, vomiting. Patient is complaining of back pain - Physical Exam Vitals/I&O's: Vital Signs Temp Pulse Resp BP Pulse Ox 98.6 F 88 16 127/76 H 98 05/10/20 11:37 05/10/20 11:37 05/10/20 11:37 05/10/20 11:37 05/10/20 11:37 Oxygen Delivery Method Room Air Weight: 59.591 kg Body Mass Index (BMI) 25.8 Intake and Output for Last 24 Hours 05/08/20 05/09/20 05/10/20 23:59 23:59 23:59 Intake Total 1010 / 1010 1178 / 1178 543.75 / 543.75 Balance 1010 / 1010 1178 / 1178 543.75 / 543.75 General: Alert, Oriented x3 HEENT: Atraumatic Extremities: No clubbing, No cyanosis, Capillary Refill Less than 3 Seconds, No Calf Tenderness, Edema - Right lower extremity, Peripheral Pulses Normal, Tenderness - Right ankle Skin: No rashes, No breakdown, - - No lower extremity ulcer, erythema, streaking, odor, bogginess, or fluctuance. Some discoloration consistent with bruising noted to the anterior medial ankle at site of joint aspiration Musculoskeletal: Tenderness - To palpation of right ankle and with range of motion of right ankle Neurological: Sensory exam intact to light touch and pain Psych/Mental Status: Normal Affect, Appropriate Microbiology Past 72 Hours 05/09/20 11:45 Nasal Secretion SARS-CoV-2 Antigen (Rapid) - Final Current Medications Acetaminophen (Acetaminophen 500 Mg Tablet) 1,000 mg PO Q6H PRN PRN PRN Reason: PAIN SCORE 1-10 Last Admin: 05/09/20 22:05 Dose: 1,000 mg Documented by: Apixaban (Apixaban 5 Mg Tablet) 5 mg PO BID HUSAM Last Admin: 05/10/20 05:20 Dose: 5 mg Documented by: Ceftriaxone Sodium 2 gm/ (Sodium Chloride) 50 mls @ 100 mls/hr IV Q24 [facility] Stop: 06/13/20 16:01 Last Infusion: 05/10/20 11:10 Dose: Infused Documented by: Sodium Chloride () 250 mls @ 0 mls/hr IV .Q0M [facility] Sodium Chloride () 250 mls @ 15 mls/hr IV .[id number] PRN PRN Reason: Saline Flush Last Infusion: 05/10/20 11:15 Dose: 0 mls/hr Documented by: Magnesium Hydroxide (Magnesium Hydroxide 30 Ml Udc) 30 ml PO DAILY PRN PRN PRN Reason: Constipation Melatonin (Melatonin 10 Mg Tablet) 10 mg PO QHS [facility] Last Admin: 05/09/20 22:03 Dose: 10 mg Documented by: Polyethylene Glycol (Polyethylene Glycol 3350 17 Gm Packet) 17 gm PO DAILY [facility] Last Admin: 05/10/20 05:21 Dose: Not Given Documented by: Senna/Docusate Sodium (Senna/Docusate Sodium 1 Tablet) 2 tablet PO BID PRN PRN PRN Reason: Constipation Sodium Chloride (0.9% Saline Lock 10 Ml Syringe) 10 - 40 ml IV UD PRN PRN Reason: Midline Flush Last Admin: 05/10/20 10:18 Dose: 20 ml Documented by: Sodium Chloride (0.9 % Nacl (Sterile) Posiflush 10 Ml) 10 - 40 ml IV UD PRN PRN Reason: Port access or dressing change Sodium Chloride (0.9% Saline Lock 10 Ml Syringe) 10 - 40 ml IV UD PRN PRN Reason: Closed End PICC Flush Sodium Chloride (0.9 % Nacl (Sterile) Posiflush 10 Ml) 10 - 40 ml IV UD PRN PRN Reason: Port access or dressing change Tuberculin PPD (Tuberculin,Purif.Prot.Deriv. 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 Her WBC was last 12.3. Ankle aspiration negative culture results so far. Her positive blood cultures are noted; Staphylococcus aureus. Her urine culture was also positive for staph aureus. AB narrowed to cefazolin per ID. Her bilateral DVTs are noted. Management per primary team appreciated; Andi. She was advised to maintain a weight-bear as tolerated to the right lower extremity and to use an assistive device. She would benefit from ankle-foot orthotic such as a custom Liliane brace. This was offered to her in the outpatient setting and she will follow-up after hospital discharge. We discussed other immobilization options such as a cam walker boot which has benefits of immediate use and some of the cons of this use include potential limb length discrepancy which is concerning given her current back pain. There are also some ankle-foot orthotics that fit on the outside of shoes which can also be offered in outpatient setting. To continue assistive device; walker. To continue physical therapy as tolerated Podiatry will continue to follow on a weekly basis Please do not hesitate to call if you have any questions.
[2020-05-10] MEDS: Acetaminophen 500 MG Tablet 1000 MG PO (16:49)
[2020-05-10] MEDS: MELATONIN 10 MG TABLET PO (20:29)
[2020-05-11] MEDS: Acetaminophen 500 MG Tablet 1000 MG PO ×2 (01:52→22:32)
[2020-05-11 03:43] VITALS: BP 116/75; PULSE 81; RESP 18; TEMP 37.2; O2SAT 96
[2020-05-11] MEDS: APIXABAN 5 MG TABLET PO ×2 (05:41→17:13)
[2020-05-11] MEDS: oxyCODONE 5 MG Tablet 2.5 MG PO (06:08)
[2020-05-11 10:00] VITALS: PULSE 92; RESP 16; O2SAT 97
[2020-05-11] MEDS: 0.9% Saline Lock 10 ML Syringe IV (11:17)
--- NOTE | 2020-05-11 13:08 | CASEMGMT ---
Social Work IDT met with patient and dtr via conference call for care plan meeting. Discussed patient's progress in therapy. See therapy notes for further details. Pt remains PWB on RLE but prefers to use walker with knee sling and be NWBS. Notified nursing to schedule f/u appt with to provide further direction on WBS. Pt remains on IV ATB until 06/13. Explained [place] insurance with [employer] 05/13 and continued stay is not guaranteed. Pt has 18 steps to enter home, lives with her son. Pt has one dtr that does not work that has some steps, but could potentially DC to her house. Pt has another dtr that works signal timer and has stairs as well. All children have expressed they are not comfortable administering IVs, despite offering training. Pt and dtr expressed understanding to insurance regulations. Will continue to follow. Racquel King, [employer] SUPERVISOR [employer] PRODUCTS INSPECTOR
[2020-05-11 14:18] VITALS: BP 108/68; PULSE 91; RESP 15; TEMP 37.7; O2SAT 96
[2020-05-11] MEDS: Sodium Chloride 0.65% 1 SPRAY SPRAY.BTL 2 SPRAY NASAL (22:31)
[2020-05-11] MEDS: MELATONIN 10 MG TABLET PO (22:32)
[2020-05-11] MEDS: Baclofen 10 MG Tablet PO (22:32)
[2020-05-12] MEDS: oxyCODONE 5 MG Tablet PO ×2 (02:03→17:07)
[2020-05-12 05:05] VITALS: BP 109/73; PULSE 72; RESP 16; TEMP 36.4; O2SAT 96
[2020-05-12] MEDS: APIXABAN 5 MG TABLET PO ×2 (05:06→17:08)
--- NOTE | 2020-05-12 10:30 | NURSING ---
Resident unsure if she would like the pneumonia vaccine. She states she usually does not get the flu shot and that she is usually not sick. She would like to think about it and will let us know.
[2020-05-12] MEDS: 0.9% Saline Lock 10 ML Syringe IV (10:33)
--- NOTE | 2020-05-12 11:47 | MDS.RN ---
Completed pain interview for ASHLEIGH 05/13/20.
[2020-05-12 14:06] VITALS: BP 112/70; PULSE 87; RESP 18; TEMP 36.9; O2SAT 97
--- NOTE | 2020-05-12 14:09 | NURSING ---
Resident and family updated on current COVID status on the unit.
--- NOTE | 2020-05-12 16:07 | CHAPLAIN ---
Type of Pastoral Visit _x__ Initial Visit ___ Follow-up Visit ___ On-call Visit ___ General Patient Visit ___ Spiritual Assessment ___ Family Conference ___ Bereavement ___ Rapid Response ___ Code Blue ___ Other (describe below) Pastoral Care Referral From _x__ Patient ___ Family ___ Nurse ___ Physician ___ Pipe Fitter Helper ___ Beef Trimmer ___ Other (describe below) Sacrament/Intervention _x__ Active listening ___ Anointing ___ Gnosticism ___ Bereavement ___ Communion _x__ Arianna exploration ___ _x__ Life review _x__ Prayer ___ Reconciliation ___ Sacrament of Sick _x__ Supportive presence ___ Wedding ___ Other (describe below) Pastoral Comments
[2020-05-12] MEDS: Baclofen 10 MG Tablet PO (17:07)
--- NOTE | 2020-05-12 17:09 | NURSING ---
Reports having continued back pain and muscle spasms. She has been using the kpad through out the day and it helps but doesnt make it go away. Medicated with Baclofen and Oxyir at this time.
[2020-05-12] MEDS: MELATONIN 10 MG TABLET PO (22:27)
[2020-05-12 22:28] VITALS: PULSE 88; RESP 18; O2SAT 95
[2020-05-13] MEDS: oxyCODONE 5 MG Tablet PO ×3 (00:06→20:12)
[2020-05-13] MEDS: Baclofen 10 MG Tablet PO ×2 (00:07→16:16)
[2020-05-13] MEDS: APIXABAN 5 MG TABLET PO ×2 (06:16→17:49)
[2020-05-13] MEDS: Polyethylene Glycol 3350 17 GM PACKET PO (06:17)
[2020-05-13 06:25] VITALS: BP 106/72; PULSE 78; RESP 18; TEMP 37.1; O2SAT 95
[2020-05-13] MEDS: 0.9% Saline Lock 10 ML Syringe IV (10:51)
[2020-05-13 14:46] VITALS: BP 106/63; PULSE 68; RESP 16; TEMP 36.2; O2SAT 95
[2020-05-13] MEDS: MELATONIN 10 MG TABLET PO (21:07)
[2020-05-14] MEDS: 0.9% Saline Lock 10 ML Syringe IV ×3 (01:00→11:41)
[2020-05-14 04:00] VITALS: BP 102/62; PULSE 80; RESP 16; TEMP 37.2; O2SAT 94
[2020-05-14] MEDS: APIXABAN 5 MG TABLET PO ×2 (05:18→17:20)
[2020-05-14] MEDS: Polyethylene Glycol 3350 17 GM PACKET PO (05:18)
[2020-05-14 07:09] LABS: Absolute Lymphocyte Count 1.18 X10^3/uL (0.83-4.51); Absolute Neutrophil Count 4.5 X10^3/uL (2.0-7.7); Basophil# 0.06 X10^3/uL; Basophil% 0.9 % (0-1); Eosinophil# 0.11 X10^3/uL; Eosinophils% 1.7 % (0-5); Hematocrit 29.5 % (37-47); Hemoglobin 9.1 g/dL (12.0-15.0); Lymphocyte # 1.18 X10^3/ul (4.0); Lymphocyte % 18.3 % (19-41); Mean Corp Hgb Conc 30.8 g/dL (32-36); Mean Corpuscular Hgb 27.5 pg (27.0-32.0); Mean Corpuscular Volume 89.1 fL (81-99); Mean Platelet Vol. 9.4 fl (6.2-12.0); Monocyte# 0.54 X10^3/uL; Monocyte% 8.4 % (0-10); NRBC Flagged by Analyzer 0 % (0-5); Neutrophil # 4.52 X10^3/uL (2.7-7.7); Neutrophil % 70.2 % (47-70); Platelet Count 553 K/mm3 (150-450); RBC Distribution Width CV 13.9 % (11.6-14.6); RBC Distribution Width SD 45.4 fl (35.1-43.9); Red Blood Count 3.31 M/mm3 (4.2-5.4); White Blood Count 6.4 K/mm3 (4.4-11.0)
[2020-05-14 07:30] LABS: Anion Gap 8 (5-15); BUN 17 mg/dL (7-18); BUN/Creat Ratio 27.2 RATIO (10-20); Calcium,Total 9.2 mg/dL (8.5-10.1); Chloride 101 mmol/L (98-107); Creatinine, Serum 0.62 mg/dL (0.55-1.02); EST Glomerular Filtration Rate 100 mL/min (>60); Est Glom Filt Rate - Afr Amer 121 mL/min (>60); Glucose 93 mg/dL (74-106); Potassium 4.1 mmol/L (3.5-5.1); Sodium Level 135 mmol/L (136-145)
[2020-05-14] MEDS: Tuberculin,Purif.prot.deriv. 50 TU/ML Vial 5 ML ID (11:46)
[2020-05-14 15:38] VITALS: BP 105/60; PULSE 86; RESP 14; TEMP 37; O2SAT 93
[2020-05-14] MEDS: MELATONIN 10 MG TABLET PO (22:18)
[2020-05-14] MEDS: oxyCODONE 5 MG Tablet PO (23:20)
[2020-05-15 04:00] VITALS: BP 98/61; PULSE 74; RESP 15; TEMP 36.7; O2SAT 92
[2020-05-15] MEDS: APIXABAN 5 MG TABLET PO ×2 (05:02→17:09)
[2020-05-15 06:15] LABS: Absolute Lymphocyte Count 1.54 X10^3/uL (0.83-4.51); Absolute Neutrophil Count 3.8 X10^3/uL (2.0-7.7); Basophil# 0.05 X10^3/uL; Basophil% 0.8 % (0-1); Eosinophil# 0.18 X10^3/uL; Eosinophils% 2.9 % (0-5); Hematocrit 28.9 % (37-47); Hemoglobin 9.2 g/dL (12.0-15.0); Lymphocyte # 1.54 X10^3/ul (4.0); Lymphocyte % 24.9 % (19-41); Mean Corp Hgb Conc 31.8 g/dL (32-36); Mean Corpuscular Volume 88.1 fL (81-99); Mean Platelet Vol. 9.6 fl (6.2-12.0); Monocyte# 0.62 X10^3/uL; NRBC Flagged by Analyzer 0 % (0-5); Neutrophil # 3.76 X10^3/uL (2.7-7.7); Neutrophil % 60.8 % (47-70); Platelet Count 565 K/mm3 (150-450); RBC Distribution Width CV 13.7 % (11.6-14.6); RBC Distribution Width SD 44.5 fl (35.1-43.9); Red Blood Count 3.28 M/mm3 (4.2-5.4); White Blood Count 6.2 K/mm3 (4.4-11.0)
[2020-05-15 06:38] LABS: Anion Gap 8 (5-15); BUN 15 mg/dL (7-18); BUN/Creat Ratio 27.5 RATIO (10-20); Calcium,Total 9.1 mg/dL (8.5-10.1); Chloride 102 mmol/L (98-107); Creatinine, Serum 0.54 mg/dL (0.55-1.02); EST Glomerular Filtration Rate 117 mL/min (>60); Est Glom Filt Rate - Afr Amer 142 mL/min (>60); Glucose 87 mg/dL (74-106); Sodium Level 135 mmol/L (136-145)
[2020-05-15] MEDS: 0.9% Saline Lock 10 ML Syringe IV (10:40)
[2020-05-15 14:37] VITALS: BP 110/61; PULSE 82; RESP 17; TEMP 36.9; O2SAT 94
[2020-05-15] MEDS: oxyCODONE 5 MG Tablet PO (20:24)
[2020-05-15] MEDS: MELATONIN 10 MG TABLET PO (20:25)
[2020-05-16 05:44] LABS: Absolute Lymphocyte Count 1.37 X10^3/uL (0.83-4.51); Absolute Neutrophil Count 3.8 X10^3/uL (2.0-7.7); Basophil# 0.07 X10^3/uL; Basophil% 1.2 % (0-1); Eosinophil# 0.22 X10^3/uL; Eosinophils% 3.6 % (0-5); Hematocrit 30.4 % (37-47); Hemoglobin 9.6 g/dL (12.0-15.0); Lymphocyte # 1.37 X10^3/ul (4.0); Lymphocyte % 22.7 % (19-41); Mean Corp Hgb Conc 31.6 g/dL (32-36); Mean Corpuscular Volume 88.6 fL (81-99); Mean Platelet Vol. 9.4 fl (6.2-12.0); Monocyte# 0.51 X10^3/uL; Monocyte% 8.5 % (0-10); NRBC Flagged by Analyzer 0 % (0-5); Neutrophil # 3.81 X10^3/uL (2.7-7.7); Neutrophil % 63.2 % (47-70); Platelet Count 584 K/mm3 (150-450); RBC Distribution Width CV 13.8 % (11.6-14.6); RBC Distribution Width SD 44.8 fl (35.1-43.9); Red Blood Count 3.43 M/mm3 (4.2-5.4)
[2020-05-16 06:00] LABS: Anion Gap 7 (5-15); BUN 20 mg/dL (7-18); BUN/Creat Ratio 32.8 RATIO (10-20); Calcium,Total 9.3 mg/dL (8.5-10.1); Chloride 102 mmol/L (98-107); Creatinine, Serum 0.61 mg/dL (0.55-1.02); EST Glomerular Filtration Rate 103 mL/min (>60); Est Glom Filt Rate - Afr Amer 125 mL/min (>60); Glucose 96 mg/dL (74-106); Potassium 4.2 mmol/L (3.5-5.1); Sodium Level 135 mmol/L (136-145)
[2020-05-16 06:14] VITALS: BP 125/71; PULSE 80; RESP 16; TEMP 37.1; O2SAT 94
[2020-05-16] MEDS: APIXABAN 5 MG TABLET PO ×2 (06:15→17:24)
[2020-05-16] MEDS: Baclofen 10 MG Tablet PO (09:11)
[2020-05-16] MEDS: 0.9% Saline Lock 10 ML Syringe IV (10:16)
[2020-05-16 14:02] VITALS: BP 103/64; PULSE 78; RESP 18; TEMP 36.3; O2SAT 96
--- NOTE | 2020-05-16 14:53 | PCM.PROGNOTE ---
Patient Problems: Active and Suspected Problems Septic arthritis of right ankle (Acute) Debility (Acute) DVT, bilateral lower limbs (Acute) Urinary tract infection (Acute) Bacteremia due to methicillin susceptible Staphylococcus aureus (MSSA) (Acute) Subjective: Patient relates right ankle is feeling significantly better. She has no complaints at this time, no complaints of fever, chills, nausea or vomiting. - Physical Exam Vitals/I&O's: Vital Signs Temp Pulse Resp BP Pulse Ox 97.4 F L 78 18 103/64 96 05/16/20 14:02 05/16/20 14:02 05/16/20 14:02 05/16/20 14:02 05/16/20 14:02 Oxygen Delivery Method Room Air Weight: 59.591 kg Body Mass Index (BMI) 25.8 Intake and Output for Last 24 Hours 05/14/20 05/15/20 05/16/20 23:59 23:59 23:59 Intake Total 784 / 784 773.75 / 773.75 1130 / 1130 Balance 784 / 784 773.75 / 773.75 1130 / 1130 General: Alert, Oriented x3, Cooperative, No apparent distress Extremities: No cyanosis - to the right foot or ankle, Capillary Refill Less than 3 Seconds - to all toes on the right foot. No evidence of ischemia to the right foot., Peripheral Pulses Normal - to the right foot or ankle, - - Right ankle with very minimal to no residual pain at this time, there is chronic limited ROM due to chronic arthritis, however she is able to move ankle more than last examination. No drainage, no open lesions, no cellulitis, no visible abscess, no necrosis to the right foot or ankle. Musculoskeletal: Arthritic Changes - to the right ankle, however symptoms much improved. Psych/Mental Status: Normal Affect, Appropriate, Alert and oriented to time, place, person, mood and affect Microbiology Past 72 Hours 05/16/20 11:35 Nasal Secretion SARS-CoV-2 Antigen (Rapid) - Final Laboratory Results 05/16/20 05:30: WBC 6.0, RBC 3.43 L, Hgb 9.6 L, Hct 30.4 L, MCV 88.6, MCH 28.0, MCHC 31.6 L, RDW Std Deviation 44.8 H, RDW Coeff of Kristine 13.8, Plt Count 584 H, MPV 9.4, Immature Gran % (Auto) 0.800, Neut % (Auto) 63.2, Lymph % (Auto) 22.7, [place] % (Auto) 8.5, Eos % (Auto) 3.6, Baso % (Auto) 1.2 H, Absolute Neuts (auto) 3.8, Absolute Lymphs (auto) 1.37, Nucleated RBC % 0 05/16/20 05:30: Sodium 135 L, Potassium 4.2, Chloride 102, Carbon Dioxide 26.0, Anion Gap 7, BUN 20 H, Creatinine 0.61, Estim Creat Clear Calc 37.60, Est GFR (MDRD) Af Amer 125, Est GFR (MDRD) Non-Af 103, BUN/Creatinine Ratio 32.8 H, Glucose 96, Calcium 9.3 Current Medications Acetaminophen (Acetaminophen 500 Mg Tablet) 1,000 mg PO Q6H PRN PRN PRN Reason: Pain Score 1-5 Last Admin: 05/11/20 22:32 Dose: 1,000 mg Documented by: Apixaban (Apixaban 5 Mg Tablet) 5 mg PO BID [facility] Last Admin: 05/16/20 06:15 Dose: 5 mg Documented by: Baclofen (Baclofen 10 Mg Tablet) 10 mg PO TID PRN PRN PRN Reason: MUSCLE SPASM Last Admin: 05/16/20 09:11 Dose: 10 mg Documented by: Ceftriaxone Sodium 2 gm/ (Sodium Chloride) 50 mls @ 100 mls/hr IV Q24 [facility] Stop: 06/13/20 16:01 Last Infusion: 05/16/20 10:45 Dose: Infused Documented by: Sodium Chloride () 250 mls @ 0 mls/hr IV .Q0M [facility] Sodium Chloride () 250 mls @ 15 mls/hr IV .[id number] PRN PRN Reason: Saline Flush Last Infusion: 05/16/20 10:45 Dose: 30 mls/hr Documented by: Magnesium Hydroxide (Magnesium Hydroxide 30 Ml Udc) 30 ml PO DAILY PRN PRN PRN Reason: Constipation Melatonin (Melatonin 10 Mg Tablet) 10 mg PO QHS [facility] Last Admin: 05/15/20 20:25 Dose: 10 mg Documented by: Oxycodone HCl (Oxycodone 5 Mg Tablet) 5 mg PO Q4H PRN PRN PRN Reason: Pain Score 6-10 Last Admin: 05/15/20 20:24 Dose: 5 mg Documented by: Polyethylene Glycol (Polyethylene Glycol 3350 17 Gm Packet) 17 gm PO DAILY HUSAM Last Admin: 05/16/20 06:16 Dose: Not Given Documented by: Senna/Docusate Sodium (Senna/Docusate Sodium 1 Tablet) 2 tablet PO BID PRN PRN PRN Reason: Constipation Sodium Chloride (0.9% Saline Lock 10 Ml Syringe) 10 - 40 ml IV UD PRN PRN Reason: Midline Flush Last Admin: 05/16/20 10:16 Dose: 20 ml Documented by: Sodium Chloride (0.9 % Nacl (Sterile) Posiflush 10 Ml) 10 - 40 ml IV UD PRN PRN Reason: Port access or dressing change Sodium Chloride (0.9% Saline Lock 10 Ml Syringe) 10 - 40 ml IV UD PRN PRN Reason: Closed End PICC Flush Sodium Chloride (0.9 % Nacl (Sterile) Posiflush 10 Ml) 10 - 40 ml IV UD PRN PRN Reason: Port access or dressing change Sodium Chloride (Sodium Chloride 0.65% 1 [place].Btl) 2 spray NASAL TID PRN PRN PRN Reason: NASAL DRYNESS Last Admin: 05/11/20 22:31 Dose: 2 spray Documented by: Medical Necessity - Tobacco Use Smoking Status: Former smoker Tobacco Use: Non-smoker Assessment/Plan All Active Problems Inability to ambulate due to right ankle or foot (Acute) Acute right ankle pain (Acute) Septic arthritis of right ankle (Acute) Debility (Acute) DVT, bilateral lower limbs (Acute) Urinary tract infection (Acute) Bacteremia due to methicillin susceptible Staphylococcus aureus (MSSA) (Acute) Arthritis right ankle with pain -significantly improved 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 Right ankle xrays and MRI with significant degenerative disease post traumatic in nature with findings c/w talus AVN - chronic - she has old talus fracture ~30 years ago. Reviewed ankle cultures - no growth. Ok to progress to protected and partial weightbearing right foot/ankle. Ordered pneumatic CAM Walker boot for right ankle. Patient on IV antibiotics, followed by Dr. Deluca/ID service. Patient on anticoagulation per medicine team/Dr. Suarez. Podiatry will continue to follow weekly, please call if needed sooner.
[2020-05-16] MEDS: oxyCODONE 5 MG Tablet PO (17:25)
[2020-05-16] MEDS: Acetaminophen 500 MG Tablet 1000 MG PO (22:41)
[2020-05-16] MEDS: MELATONIN 10 MG TABLET PO (22:41)
[2020-05-17] MEDS: APIXABAN 5 MG TABLET PO ×2 (05:12→17:14)
[2020-05-17 05:14] VITALS: BP 136/78; PULSE 69; RESP 18; TEMP 36.5; O2SAT 97
[2020-05-17] MEDS: 0.9% Saline Lock 10 ML Syringe IV ×4 (05:17→20:28)
[2020-05-17 06:34] LABS: Absolute Lymphocyte Count 1.53 X10^3/uL (0.83-4.51); Absolute Neutrophil Count 3.4 X10^3/uL (2.0-7.7); Basophil# 0.07 X10^3/uL; Basophil% 1.2 % (0-1); Eosinophil# 0.27 X10^3/uL; Eosinophils% 4.6 % (0-5); Hematocrit 31.4 % (37-47); Hemoglobin 9.7 g/dL (12.0-15.0); Lymphocyte # 1.53 X10^3/ul (4.0); Lymphocyte % 26.2 % (19-41); Mean Corp Hgb Conc 30.9 g/dL (32-36); Mean Corpuscular Hgb 27.9 pg (27.0-32.0); Mean Corpuscular Volume 90.2 fL (81-99); Mean Platelet Vol. 9.1 fl (6.2-12.0); Monocyte# 0.53 X10^3/uL; Monocyte% 9.1 % (0-10); NRBC Flagged by Analyzer 0 % (0-5); Neutrophil # 3.41 X10^3/uL (2.7-7.7); Neutrophil % 58.2 % (47-70); Platelet Count 568 K/mm3 (150-450); RBC Distribution Width CV 13.9 % (11.6-14.6); RBC Distribution Width SD 46.4 fl (35.1-43.9); Red Blood Count 3.48 M/mm3 (4.2-5.4); White Blood Count 5.9 K/mm3 (4.4-11.0)
[2020-05-17 06:58] LABS: Anion Gap 6 (5-15); BUN 22 mg/dL (7-18); BUN/Creat Ratio 35.3 RATIO (10-20); Calcium,Total 9.2 mg/dL (8.5-10.1); Chloride 102 mmol/L (98-107); Creatinine, Serum 0.62 mg/dL (0.55-1.02); EST Glomerular Filtration Rate 100 mL/min (>60); Est Glom Filt Rate - Afr Amer 122 mL/min (>60); Glucose 91 mg/dL (74-106); Potassium 3.9 mmol/L (3.5-5.1); Sodium Level 135 mmol/L (136-145)
[2020-05-17 13:24] VITALS: BP 102/63; PULSE 77; RESP 15; TEMP 36.1; O2SAT 96
--- NOTE | 2020-05-17 14:03 | NURSING ---
[facility] called to let us know that she will need to schedule a appointment to get fitted for the left ankle brace. Called Daughter to see if she could take her daughter will call and set up appt..
[2020-05-17] MEDS: oxyCODONE 5 MG Tablet PO (20:22)
[2020-05-17] MEDS: MELATONIN 10 MG TABLET PO (20:23)
[2020-05-18 05:34] VITALS: BP 101/65; PULSE 74; RESP 16; TEMP 36.9; O2SAT 94
[2020-05-18] MEDS: APIXABAN 5 MG TABLET PO ×2 (05:37→17:51)
[2020-05-18 05:43] LABS: Absolute Lymphocyte Count 1.57 X10^3/uL (0.83-4.51); Absolute Neutrophil Count 3.3 X10^3/uL (2.0-7.7); Basophil# 0.06 X10^3/uL; Eosinophil# 0.25 X10^3/uL; Eosinophils% 4.3 % (0-5); Hematocrit 30.4 % (37-47); Hemoglobin 9.3 g/dL (12.0-15.0); Lymphocyte # 1.57 X10^3/ul (4.0); Lymphocyte % 26.9 % (19-41); Mean Corp Hgb Conc 30.6 g/dL (32-36); Mean Corpuscular Hgb 27.4 pg (27.0-32.0); Mean Corpuscular Volume 89.4 fL (81-99); Mean Platelet Vol. 9.4 fl (6.2-12.0); Monocyte# 0.59 X10^3/uL; Monocyte% 10.1 % (0-10); NRBC Flagged by Analyzer 0 % (0-5); Neutrophil # 3.32 X10^3/uL (2.7-7.7); Neutrophil % 56.8 % (47-70); Platelet Count 525 K/mm3 (150-450); RBC Distribution Width CV 13.7 % (11.6-14.6); RBC Distribution Width SD 44.6 fl (35.1-43.9); White Blood Count 5.8 K/mm3 (4.4-11.0)
[2020-05-18 06:00] LABS: Anion Gap 7 (5-15); BUN 14 mg/dL (7-18); BUN/Creat Ratio 25.1 RATIO (10-20); Chloride 103 mmol/L (98-107); Creatinine, Serum 0.56 mg/dL (0.55-1.02); EST Glomerular Filtration Rate 114 mL/min (>60); Est Glom Filt Rate - Afr Amer 138 mL/min (>60); Glucose 88 mg/dL (74-106); Potassium 3.9 mmol/L (3.5-5.1); Sodium Level 137 mmol/L (136-145)
--- NOTE | 2020-05-18 07:52 | MDS.RN ---
Information for the mds was obtained from review of the clinical record, interview of resident, staff, and direct observation of resident's care.
[2020-05-18] MEDS: Iron Polysaccharide Complex 150 MG CAPSULE PO (08:31)
[2020-05-18] MEDS: oxyCODONE 5 MG Tablet PO ×2 (09:04→20:19)
[2020-05-18] MEDS: 0.9% Saline Lock 10 ML Syringe IV (11:02)
[2020-05-18 13:18] VITALS: BP 111/64; PULSE 75; RESP 15; TEMP 36.7; O2SAT 94
--- NOTE | 2020-05-18 15:05 | NURSING ---
Called pt's daughter to check on appointment with [facility]. Daughter Ana made appt with Dr. He in her office at 9:30am on 05/23/20 to get fitted for CAM boot. She will be transported by her Daughter Nellie.
[2020-05-18] MEDS: MELATONIN 10 MG TABLET PO (22:29)
[2020-05-19] MEDS: 0.9% Saline Lock 10 ML Syringe IV ×3 (04:50→21:50)
[2020-05-19] MEDS: APIXABAN 5 MG TABLET PO ×2 (04:52→17:42)
[2020-05-19 04:53] VITALS: BP 109/62; PULSE 74; RESP 16; TEMP 36.9; O2SAT 93
[2020-05-19 05:29] LABS: Absolute Lymphocyte Count 1.26 X10^3/uL (0.83-4.51); Absolute Neutrophil Count 3.9 X10^3/uL (2.0-7.7); Basophil# 0.06 X10^3/uL; Eosinophil# 0.28 X10^3/uL; Eosinophils% 4.6 % (0-5); Hematocrit 30.4 % (37-47); Hemoglobin 9.6 g/dL (12.0-15.0); Lymphocyte # 1.26 X10^3/ul (4.0); Lymphocyte % 20.5 % (19-41); Mean Corp Hgb Conc 31.6 g/dL (32-36); Mean Corpuscular Volume 88.6 fL (81-99); Mean Platelet Vol. 9.2 fl (6.2-12.0); Monocyte# 0.56 X10^3/uL; Monocyte% 9.1 % (0-10); NRBC Flagged by Analyzer 0 % (0-5); Neutrophil # 3.93 X10^3/uL (2.7-7.7); Neutrophil % 63.8 % (47-70); Platelet Count 506 K/mm3 (150-450); RBC Distribution Width CV 13.9 % (11.6-14.6); RBC Distribution Width SD 44.9 fl (35.1-43.9); Red Blood Count 3.43 M/mm3 (4.2-5.4); White Blood Count 6.2 K/mm3 (4.4-11.0)
[2020-05-19 05:52] LABS: Anion Gap 8 (5-15); BUN 14 mg/dL (7-18); BUN/Creat Ratio 24.6 RATIO (10-20); Calcium,Total 8.9 mg/dL (8.5-10.1); Chloride 103 mmol/L (98-107); Creatinine, Serum 0.57 mg/dL (0.55-1.02); EST Glomerular Filtration Rate 112 mL/min (>60); Est Glom Filt Rate - Afr Amer 135 mL/min (>60); Glucose 89 mg/dL (74-106); Potassium 4.1 mmol/L (3.5-5.1); Sodium Level 137 mmol/L (136-145)
[2020-05-19] MEDS: Iron Polysaccharide Complex 150 MG CAPSULE PO (08:09)
[2020-05-19] MEDS: Acetaminophen 500 MG Tablet 1000 MG PO (10:56)
[2020-05-19 14:27] VITALS: BP 94/54; PULSE 79; RESP 16; TEMP 36.9; O2SAT 94
[2020-05-19 21:08] VITALS: PULSE 85; RESP 16; O2SAT 98
[2020-05-19] MEDS: oxyCODONE 5 MG Tablet PO (21:49)
[2020-05-19] MEDS: MELATONIN 10 MG TABLET PO (21:49)
--- NOTE | 2020-05-19 22:43 | PCA ---
Patient stated they would much rather get washed up in the morning.
[2020-05-20 04:59] VITALS: BP 121/70; PULSE 72; RESP 16; TEMP 36.8; O2SAT 94
[2020-05-20] MEDS: APIXABAN 5 MG TABLET PO ×2 (04:59→17:11)
[2020-05-20 05:44] LABS: Hematocrit 29.9 % (37-47); Hemoglobin 9.1 g/dL (12.0-15.0)
[2020-05-20] MEDS: Acetaminophen 500 MG Tablet 1000 MG PO (07:58)
[2020-05-20] MEDS: Iron Polysaccharide Complex 150 MG CAPSULE PO (07:59)
[2020-05-20] MEDS: 0.9% Saline Lock 10 ML Syringe IV (09:57)
[2020-05-20 12:34] VITALS: BP 93/59; PULSE 73; RESP 18; TEMP 35.9; O2SAT 92
[2020-05-20] MEDS: oxyCODONE 5 MG Tablet PO (20:12)
[2020-05-20] MEDS: MELATONIN 10 MG TABLET PO (22:33)
[2020-05-21 04:48] VITALS: BP 97/56; PULSE 68; RESP 18; TEMP 36.6; O2SAT 96
[2020-05-21] MEDS: APIXABAN 5 MG TABLET PO ×2 (04:55→17:01)
[2020-05-21] MEDS: Iron Polysaccharide Complex 150 MG CAPSULE PO (08:33)
[2020-05-21] MEDS: Acetaminophen 500 MG Tablet 1000 MG PO ×2 (08:35→21:52)
[2020-05-21] MEDS: 0.9% Saline Lock 10 ML Syringe IV ×2 (10:31→21:54)
[2020-05-21 10:40] VITALS: PULSE 75; RESP 18; O2SAT 95
[2020-05-21 14:02] VITALS: BP 96/59; PULSE 72; RESP 16; TEMP 36.9; O2SAT 94
--- NOTE | 2020-05-21 14:08 | NURSING ---
Pt stated that one of the aids called her today and they told her that she was having a good day. Pt stated i don't want anyone contacting my to tell him anything about me. Told pt I understand but none of us have been in contact with her today but we would respect her wishes and not update .
[2020-05-21] MEDS: oxyCODONE 5 MG Tablet PO (21:52)
[2020-05-21] MEDS: MELATONIN 10 MG TABLET PO (21:53)
[2020-05-22 05:34] VITALS: BP 100/64; PULSE 66; RESP 16; TEMP 36.6; O2SAT 94
[2020-05-22] MEDS: APIXABAN 5 MG TABLET PO ×2 (05:34→17:52)
[2020-05-22] MEDS: 0.9% Saline Lock 10 ML Syringe IV ×2 (05:34→10:17)
[2020-05-22 06:34] LABS: Hematocrit 30.5 % (37-47); Hemoglobin 9.5 g/dL (12.0-15.0)
[2020-05-22] MEDS: Iron Polysaccharide Complex 150 MG CAPSULE PO (08:09)
[2020-05-22] MEDS: Acetaminophen 500 MG Tablet 1000 MG PO (10:13)
[2020-05-22 14:02] VITALS: BP 102/63; PULSE 72; RESP 16; TEMP 36.8; O2SAT 93
[2020-05-22] MEDS: oxyCODONE 5 MG Tablet PO (21:51)
[2020-05-22] MEDS: MELATONIN 10 MG TABLET PO (21:51)
[2020-05-23 05:00] VITALS: BP 132/69; PULSE 83; RESP 18; TEMP 36.8; O2SAT 96
[2020-05-23] MEDS: APIXABAN 5 MG TABLET PO ×2 (06:01→17:03)
[2020-05-23] MEDS: Acetaminophen 500 MG Tablet 1000 MG PO ×2 (06:03→21:26)
[2020-05-23] MEDS: Iron Polysaccharide Complex 150 MG CAPSULE PO (08:26)
[2020-05-23 09:08] VITALS: RESP 16; O2SAT 98
--- NOTE | 2020-05-23 09:19 | NURSING ---
Addendum entered by Jane Che 05/23/20 11:32: pt stated that they measured her foot/leg for boot, but needs to check with insurance and doctor will drop off while here when boot delivered Addendum entered by Jane Che 05/23/20 11:31: returned to floor, office will fax note of RECS per written order. awaiting note. Original Note: PT OFF FLOOR VIA WC TO DR LEVY WITH DR VASQUEZ. SON TAKING
[2020-05-23] MEDS: 0.9% Saline Lock 10 ML Syringe IV ×2 (11:28→21:26)
[2020-05-23] MEDS: Baclofen 10 MG Tablet PO (13:23)
[2020-05-23 15:01] VITALS: BP 117/67; PULSE 78; RESP 20; TEMP 36.9; O2SAT 95
[2020-05-23] MEDS: oxyCODONE 5 MG Tablet PO (17:46)
[2020-05-23] MEDS: MELATONIN 10 MG TABLET PO (21:27)
[2020-05-24] MEDS: APIXABAN 5 MG TABLET PO ×2 (05:56→17:17)
[2020-05-24] MEDS: 0.9% Saline Lock 10 ML Syringe IV ×2 (05:57→11:49)
[2020-05-24] MEDS: Acetaminophen 500 MG Tablet 1000 MG PO ×2 (05:57→15:54)
[2020-05-24 06:00] VITALS: BP 114/65; PULSE 92; RESP 16; TEMP 37.3; O2SAT 93
[2020-05-24] MEDS: Iron Polysaccharide Complex 150 MG CAPSULE PO (09:37)
[2020-05-24 13:20] VITALS: BP 116/57; PULSE 82; RESP 15; TEMP 36.6; O2SAT 94
[2020-05-24] MEDS: oxyCODONE 5 MG Tablet PO (21:30)
[2020-05-24] MEDS: MELATONIN 10 MG TABLET PO (21:31)
[2020-05-24 22:00] VITALS: BP 128/62; PULSE 85; RESP 16; TEMP 36.9
[2020-05-24] MEDS: Menthol/Lanolin/Calamine/Znox 113 GM Tube 1 APPLIC TOPICAL (22:30)
[2020-05-25] MEDS: Menthol/Lanolin/Calamine/Znox 113 GM Tube 1 APPLIC TOPICAL ×2 (04:05→16:23)
[2020-05-25] MEDS: APIXABAN 5 MG TABLET PO ×2 (04:06→16:22)
[2020-05-25] MEDS: Acetaminophen 500 MG Tablet 1000 MG PO ×2 (04:06→15:00)
[2020-05-25] MEDS: oxyCODONE 5 MG Tablet PO ×2 (04:07→16:23)
[2020-05-25 04:14] VITALS: BP 103/61; PULSE 93; RESP 18; TEMP 37.8; O2SAT 94
[2020-05-25] MEDS: Iron Polysaccharide Complex 150 MG CAPSULE PO (08:25)
[2020-05-25 08:48] LABS: Absolute Lymphocyte Count 1.26 X10^3/uL (0.83-4.51); Absolute Neutrophil Count 6.4 X10^3/uL (2.0-7.7); Basophil# 0.06 X10^3/uL; Basophil% 0.7 % (0-1); Eosinophils% 2.4 % (0-5); Hematocrit 34.8 % (37-47); Hemoglobin 10.8 g/dL (12.0-15.0); Lymphocyte # 1.26 X10^3/ul (4.0); Mean Corpuscular Hgb 27.3 pg (27.0-32.0); Mean Corpuscular Volume 88.1 fL (81-99); Mean Platelet Vol. 9.6 fl (6.2-12.0); Monocyte# 0.49 X10^3/uL; Monocyte% 5.8 % (0-10); NRBC Flagged by Analyzer 0 % (0-5); Neutrophil # 6.37 X10^3/uL (2.7-7.7); Neutrophil % 75.6 % (47-70); Platelet Count 421 K/mm3 (150-450); RBC Distribution Width CV 14.1 % (11.6-14.6); RBC Distribution Width SD 45.7 fl (35.1-43.9); Red Blood Count 3.95 M/mm3 (4.2-5.4); White Blood Count 8.4 K/mm3 (4.4-11.0)
[2020-05-25] MEDS: 0.9% Saline Lock 10 ML Syringe IV ×2 (10:32→14:22)
[2020-05-25 12:49] VITALS: TEMP 37.1
[2020-05-25 13:50] VITALS: BP 104/64; PULSE 80; RESP 14; TEMP 36.2; O2SAT 92
[2020-05-25 14:01] VITALS: PULSE 85; RESP 16; O2SAT 95
[2020-05-25] MEDS: MELATONIN 10 MG TABLET PO (19:35)
[2020-05-26] MEDS: oxyCODONE 5 MG Tablet PO (00:54)
[2020-05-26 05:26] VITALS: BP 94/60; PULSE 85; RESP 18; TEMP 36.6; O2SAT 91
[2020-05-26] MEDS: APIXABAN 5 MG TABLET PO ×2 (05:28→16:41)
[2020-05-26] MEDS: Menthol/Lanolin/Calamine/Znox 113 GM Tube 1 APPLIC TOPICAL ×2 (05:28→16:41)
[2020-05-26 06:02] LABS: Absolute Lymphocyte Count 1.36 X10^3/uL (0.83-4.51); Absolute Neutrophil Count 6.9 X10^3/uL (2.0-7.7); Basophil# 0.05 X10^3/uL; Basophil% 0.6 % (0-1); Eosinophils% 2.2 % (0-5); Hematocrit 31.3 % (37-47); Hemoglobin 9.9 g/dL (12.0-15.0); Lymphocyte # 1.36 X10^3/ul (4.0); Mean Corp Hgb Conc 31.6 g/dL (32-36); Mean Corpuscular Hgb 27.6 pg (27.0-32.0); Mean Corpuscular Volume 87.2 fL (81-99); Mean Platelet Vol. 9.8 fl (6.2-12.0); Monocyte# 0.51 X10^3/uL; Monocyte% 5.6 % (0-10); NRBC Flagged by Analyzer 0 % (0-5); Neutrophil % 76.2 % (47-70); Platelet Count 352 K/mm3 (150-450); RBC Distribution Width CV 14.1 % (11.6-14.6); RBC Distribution Width SD 45.3 fl (35.1-43.9); Red Blood Count 3.59 M/mm3 (4.2-5.4); White Blood Count 9.1 K/mm3 (4.4-11.0)
[2020-05-26 06:27] LABS: Anion Gap 4 (5-15); BUN 13 mg/dL (7-18); Calcium,Total 9.2 mg/dL (8.5-10.1); Chloride 102 mmol/L (98-107); Creatinine, Serum 0.59 mg/dL (0.55-1.02); EST Glomerular Filtration Rate 107 mL/min (>60); Est Glom Filt Rate - Afr Amer 129 mL/min (>60); Glucose 109 mg/dL (74-106); Potassium 4.4 mmol/L (3.5-5.1); Sodium Level 131 mmol/L (136-145)
[2020-05-26] MEDS: Acetaminophen 500 MG Tablet 1000 MG PO ×2 (06:33→16:46)
[2020-05-26] MEDS: Iron Polysaccharide Complex 150 MG CAPSULE PO (08:15)
[2020-05-26] MEDS: 0.9% Saline Lock 10 ML Syringe IV (11:01)
[2020-05-26 14:12] VITALS: BP 104/70; PULSE 79; RESP 14; TEMP 37; O2SAT 95
[2020-05-26] MEDS: MELATONIN 10 MG TABLET PO (20:10)
[2020-05-27] MEDS: Acetaminophen 500 MG Tablet 1000 MG PO ×3 (00:46→17:11)
[2020-05-27 05:22] VITALS: BP 100/66; PULSE 70; RESP 16; TEMP 37.4; O2SAT 98
[2020-05-27] MEDS: APIXABAN 5 MG TABLET PO ×2 (05:24→17:07)
[2020-05-27] MEDS: Menthol/Lanolin/Calamine/Znox 113 GM Tube 1 APPLIC TOPICAL ×2 (05:25→17:07)
[2020-05-27] MEDS: Iron Polysaccharide Complex 150 MG CAPSULE PO (08:13)
--- NOTE | 2020-05-27 11:27 | NURSING ---
Called podiatry to check on CAM boot order, Jeremias states that it is still pending insurance
[2020-05-27 15:03] VITALS: BP 100/64; PULSE 79; RESP 16; TEMP 36.1; O2SAT 94
[2020-05-27] MEDS: MELATONIN 10 MG TABLET PO (21:21)
[2020-05-28] MEDS: Acetaminophen 500 MG Tablet 1000 MG PO ×3 (00:13→18:41)
[2020-05-28] MEDS: Menthol/Lanolin/Calamine/Znox 113 GM Tube 1 APPLIC TOPICAL ×2 (04:12→18:26)
[2020-05-28] MEDS: APIXABAN 5 MG TABLET PO ×2 (04:14→18:25)
[2020-05-28 04:15] VITALS: BP 98/54; PULSE 68; RESP 17; TEMP 36.4; O2SAT 95
[2020-05-28] MEDS: 0.9% Saline Lock 10 ML Syringe IV ×2 (09:20→22:06)
[2020-05-28] MEDS: Iron Polysaccharide Complex 150 MG CAPSULE PO (09:20)
[2020-05-28 14:37] VITALS: BP 106/65; PULSE 81; RESP 18; TEMP 36.3; O2SAT 94
--- NOTE | 2020-05-28 18:45 | NURSING ---
Notified Dr. Suarez of pt c/o sore throat, sneezing, runny nose, headache, and swollen lymph node to the left side of her neck. Received orders for Covid test, Respiratory panel, Cepacol spray and Zpak. Will add orders.
[2020-05-28 18:53] VITALS: TEMP 38.3
[2020-05-28] MEDS: Azithromycin 250 MG Tablet 500 MG PO (20:15)
[2020-05-28] MEDS: Phenol/Sodium Phenolate 180ML 3 SPRAY MM (20:18)
[2020-05-28] MEDS: MELATONIN 10 MG TABLET PO (22:04)
[2020-05-29 05:15] VITALS: BP 100/61; PULSE 95; RESP 18; TEMP 37.2; O2SAT 97
[2020-05-29] MEDS: APIXABAN 5 MG TABLET PO ×2 (05:17→17:03)
[2020-05-29] MEDS: Azithromycin 250 MG Tablet PO (05:17)
[2020-05-29] MEDS: Menthol/Lanolin/Calamine/Znox 113 GM Tube 1 APPLIC TOPICAL ×2 (05:18→17:03)
[2020-05-29] MEDS: Acetaminophen 500 MG Tablet 1000 MG PO ×3 (08:15→21:01)
[2020-05-29] MEDS: Iron Polysaccharide Complex 150 MG CAPSULE PO (08:16)
[2020-05-29 14:49] VITALS: BP 95/58; PULSE 76; RESP 20; TEMP 36.1; O2SAT 97
[2020-05-29] MEDS: MELATONIN 10 MG TABLET PO (20:44)
[2020-05-29] MEDS: 0.9% Saline Lock 10 ML Syringe IV (20:52)
[2020-05-29] MEDS: Phenol/Sodium Phenolate 180ML 3 SPRAY MM (20:52)
[2020-05-30 05:00] VITALS: BP 124/63; PULSE 80; RESP 18; TEMP 37; O2SAT 95
[2020-05-30] MEDS: APIXABAN 5 MG TABLET PO ×2 (06:01→17:17)
[2020-05-30] MEDS: Acetaminophen 500 MG Tablet 1000 MG PO ×3 (06:01→21:25)
[2020-05-30] MEDS: Azithromycin 250 MG Tablet PO (06:01)
[2020-05-30] MEDS: Menthol/Lanolin/Calamine/Znox 113 GM Tube 1 APPLIC TOPICAL ×2 (06:03→17:17)
[2020-05-30] MEDS: Iron Polysaccharide Complex 150 MG CAPSULE PO (08:20)
[2020-05-30] MEDS: 0.9% Saline Lock 10 ML Syringe IV (11:01)
[2020-05-30 11:30] VITALS: PULSE 74; O2SAT 96
[2020-05-30 13:49] VITALS: BP 113/69; PULSE 84; RESP 14; TEMP 36.8; O2SAT 97
--- NOTE | 2020-05-30 18:43 | PCM.TCUNOT ---
Subjective: Resident seen and examined for regulatory visit. She was lying in bed. 2 days prior, she complained of sore throat. Z-pack, Chloraseptic spray added with improvement, she has no other problems, concerns, issues, complaints today. Vitals/I&O's: Vital Signs Temp Pulse Resp BP Pulse Ox 98.2 F 84 14 113/69 97 05/30/20 13:49 05/30/20 13:49 05/30/20 13:49 05/30/20 13:49 05/30/20 13:49 Oxygen Delivery Method Room Air Weight: 60.413 kg Body Mass Index (BMI) 25.8 Intake and Output for Last 24 Hours 05/28/20 05/29/20 05/30/20 23:59 23:59 23:59 Intake Total 961.5 / 961.5 1010 / 1010 1400 / 1400 Balance 961.5 / 961.5 1010 / 1010 1400 / 1400 Microbiology Past 72 Hours 05/30/20 13:32 Stool Enteric Bacteriology - Final 05/30/20 13:32 Stool C. difficile DNA Amplification - Final 05/28/20 19:00 Mucosa - Nasopharyngeal Respiratory Panel (PCR) - Final Past Medical History Past Medical History (Chronic Problems): Chronic Problems Fracture of talus of right ankle, closed (Chronic) Anemia (Chronic) Allergies No Known Allergies Allergy (Verified 05/01/20 00:11) Home Medications: Ambulatory Orders Medication Instructions Recorded Acetaminophen [Tylenol Tablet] 650 mg PO Q6H PRN PRN tab 05/06/20 Apixaban [Eliquis] 5 mg PO BID 05/06/20 Ceftriaxone 2 gm IV Q24 05/06/20 Magnesium Hydroxide [Milk Of 30 ml PO DAILY PRN PRN udc 05/06/20 Magnesia] Senna/Docusate Sodium [Senokot-S] 2 tab PO BID PRN PRN tab 05/06/20 Surgical History: - - R ankle ORIF and subsequent hardware removal, urolift, salpingectomy for ectopic Psychiatric History: No pertinent psych hx 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 Smoking Status: Former smoker Tobacco Use: Non-smoker Drugs: None - *Family History Maternal History Items: Heart Disease Paternal History Items: No pertinent history Capacity - Capacity Assessment Tool Can the patient make a choice & communicate that choice?: Yes Can the patient understand benefits, risks and alternatives?: Yes Can the patient make a logical, rational choice?: Yes Is the choice the patient makes consistent w/ their values?: Yes Is there an impending, emergent risk to the patient?: No Does the patient have an Advance Directive?: No Is there a Surrogate Available?: Yes i.e. HCPOA: Yes i.e. close relative (spouse, child, parent, sibling)?: Yes Review of Systems Constitutional: Denies: Chills, Fever, Weight Change HEENT: Denies: Head Aches, Sinus Congestion, Sinus Drainage Cardiovascular: Denies: Chest Pain, Palpitations Respiratory: Denies: Cough, Shortness of breath at rest, Sputum production Gastrointestinal: Denies: Abdominal Pain, Nausea, Vomiting Genitourinary: Denies: Dysuria Musculoskeletal: Denies: Joint Pain, Joint Tenderness Skin: Denies: Rash, Wounds Neurological: Denies: Numbness, Tingling, Focal weakness Psychiatric: Denies: Anxiety, Depression, Homicidal Ideations, Suicidal Ideations Hematologic/ Lymphatic: Denies: Easy Bruising, Easy Bleeding Patient Problems: Active and Suspected Problems Septic arthritis of right ankle (Acute) Debility (Acute) DVT, bilateral lower limbs (Acute) Urinary tract infection (Acute) Bacteremia due to methicillin susceptible Staphylococcus aureus (MSSA) (Acute) - Physical Exam Vitals/I&O's: Vital Signs Temp Pulse Resp BP Pulse Ox 98.2 F 84 14 113/69 97 05/30/20 13:49 05/30/20 13:49 05/30/20 13:49 05/30/20 13:49 05/30/20 13:49 Oxygen Delivery Method Room Air Weight: 60.413 kg Body Mass Index (BMI) 25.8 Intake and Output for Last 24 Hours 05/28/20 05/29/20 05/30/20 23:59 23:59 23:59 Intake Total 961.5 / 961.5 1010 / 1010 1400 / 1400 Balance 961.5 / 961.5 1010 / 1010 1400 / 1400 General: Alert, Oriented x3, Cooperative HEENT: Atraumatic, PERRLA, EOMI, Normocephalic Neck: Supple, No JVD, Negative Carotid Bruits Lungs: Clear to auscultation, Normal air movement Cardiovascular: Regular rate, No murmurs Abdomen: Bowel Sounds Present, Soft, Non Tender Extremities: No edema, Capillary Refill Less than 3 Seconds, - - Bilateral lower extremity dressed, JUAN LUIS wrapped. Skin: No rashes, No breakdown Musculoskeletal: No Tenderness to Palpation of Joints or Extremities Neurological: Cranial nerves II-XII grossly intact Psych/Mental Status: Normal Affect, Appropriate Microbiology Past 72 Hours 05/30/20 13:32 Stool Enteric Bacteriology - Final 05/30/20 13:32 Stool C. difficile DNA Amplification - Final 05/28/20 19:00 Mucosa - Nasopharyngeal Respiratory Panel (PCR) - Final Current Medications Acetaminophen (Acetaminophen 500 Mg Tablet) 1,000 mg PO Q6H PRN PRN PRN Reason: Pain Score 1-5 Last Admin: 05/30/20 15:23 Dose: 1,000 mg Documented by: Apixaban (Apixaban 5 Mg Tablet) 5 mg PO BID [facility] Last Admin: 05/30/20 17:17 Dose: 5 mg Documented by: Azithromycin (Azithromycin 250 Mg Tablet) 250 mg PO DAILY [facility] Stop: 06/02/20 06:01 Last Admin: 05/30/20 06:01 Dose: 250 mg Documented by: Baclofen (Baclofen 10 Mg Tablet) 10 mg PO TID PRN PRN PRN Reason: MUSCLE SPASM Last Admin: 05/23/20 13:23 Dose: 10 mg Documented by: Calamine/Phenol (Menthol/Lanolin/Calamine/Znox 113 Gm Tube) 1 applic TOPICAL BID [facility]; Protocol Last Admin: 05/30/20 17:17 Dose: 1 applicatio Documented by: Ceftriaxone Sodium 2 gm/ (Sodium Chloride) 50 mls @ 100 mls/hr IV Q24 [facility] Stop: 06/13/20 16:01 Last Admin: 05/30/20 10:53 Dose: 100 mls/hr Documented by: Sodium Chloride () 250 mls @ 0 mls/hr IV .Q0M [facility]USAM Sodium Chloride () 250 mls @ 15 mls/hr IV .[id number] PRN PRN Reason: Saline Flush Last Admin: 05/30/20 10:53 Dose: 15 mls/hr Documented by: Lactobacillus Acidophilus (Lactobacillus Acidophilus) 1 tablet PO BID [facility] Last Admin: 05/30/20 17:17 Dose: 1 tablet Documented by: Magnesium Hydroxide (Magnesium Hydroxide 30 Ml Udc) 30 ml PO DAILY PRN PRN PRN Reason: Constipation Melatonin (Melatonin 10 Mg Tablet) 10 mg PO QHS [facility] Last Admin: 05/29/20 20:44 Dose: 10 mg Documented by: Oxycodone HCl (Oxycodone 5 Mg Tablet) 5 mg PO Q4H PRN PRN PRN Reason: Pain Score 6-10 Last Admin: 05/26/20 00:54 Dose: 5 mg Documented by: Phenol/Menthol (Phenol/Sodium Phenolate 180ml) 3 spray MM Q2H PRN PRN PRN Reason: SORE THROAT Last Admin: 05/29/20 20:52 Dose: 3 spray Documented by: Polyethylene Glycol (Polyethylene Glycol 3350 17 Gm Packet) 17 gm PO DAILY [facility] Last Admin: 05/30/20 06:02 Dose: Not Given Documented by: Polysaccharide Iron Complex (Iron Polysaccharide Complex 150 Mg Capsule) [facility] Last Admin: 05/30/20 08:20 Dose: 150 mg Documented by: Senna/Docusate Sodium (Senna/Docusate Sodium 1 Tablet) 2 tablet PO BID PRN PRN PRN Reason: Constipation Sodium Chloride (0.9% Saline Lock 10 Ml Syringe) 10 - 40 ml IV UD PRN PRN Reason: Midline Flush Last Admin: 05/30/20 11:01 Dose: 20 ml Documented by: Sodium Chloride (0.9 % Nacl (Sterile) Posiflush 10 Ml) 10 - 40 ml IV UD PRN PRN Reason: Port access or dressing change Sodium Chloride (0.9% Saline Lock 10 Ml Syringe) 10 - 40 ml IV UD PRN PRN Reason: Closed End PICC Flush Sodium Chloride (0.9 % Nacl (Sterile) Posiflush 10 Ml) 10 - 40 ml IV UD PRN PRN Reason: Port access or dressing change Sodium Chloride (Sodium Chloride 0.65% 1 [place].Btl) 2 spray NASAL TID PRN PRN PRN Reason: NASAL DRYNESS Last Admin: 05/11/20 22:31 Dose: 2 spray Documented by: Assessment/Plan All Active Problems Avascular necrosis of bone of ankle (Acute) Inability to ambulate due to right ankle or foot (Acute) Acute right ankle pain (Acute) Septic arthritis of right ankle (Acute) Debility (Acute) DVT, bilateral lower limbs (Acute) Urinary tract infection (Acute) Bacteremia due to methicillin susceptible Staphylococcus aureus (MSSA) (Acute) 69 year old female with below past medical history hospitalized for right ankle septic arthritis, MSSA bacteremia secondary to MSSA urinary tract infection, complicated by bilateral lower extremity DVT, admitted to TCU with debility, here for rehabilitation, strengthening, intravenous antibiotics, prior to discharge home with family. Debility - PT/OT. Pain - Tylenol 1000MG Q6H PRN pain (1-5), Oxycodone 5MG Q4H PRN pain (6-10). Bowel - Miralax 17GM daily, Senna/colace 2 tablets twice daily PRN, Milk of Magnesium 30ML daily PRN. Adult immunization - Administer Prevnar 13, Pneumovax 23, Fluzone, COVID19 vaccine as appropriate. DVT prophylaxis - Not necessary, on treatment for DVT. Bilateral lower extremity DVT - Eliquis 5MG BID thru 07/30/2020 to complete 3 months therapy. MSSA bacteremia/right ankle septic arthritis/MSSA UTI - Ceftriaxone 2GM IV Q24H thru 06/13/2020. Acute pharyngitis - Z-pack, Chloraseptic 3 sprays Q2H PRN. Muscle spasm - Baclofen 10MG TID PRN. Iron deficiency anemia - Ferrex 150MG daily. GI prophylaxis - Lactobacillus 1 tablet BID. Insomnia - Melatonin 10MG QHS. Skin irritation - Calmoseptine topical BID. Dry Nares - [place] Nasal [place] 2 sprays nasal TID PRN.
[2020-05-30] MEDS: MELATONIN 10 MG TABLET PO (20:59)
[2020-05-31 02:15] VITALS: BP 104/68; PULSE 73; RESP 18; TEMP 36.6; O2SAT 94
[2020-05-31] MEDS: Azithromycin 250 MG Tablet PO (05:26)
[2020-05-31] MEDS: APIXABAN 5 MG TABLET PO ×2 (05:26→17:50)
[2020-05-31] MEDS: Menthol/Lanolin/Calamine/Znox 113 GM Tube 1 APPLIC TOPICAL ×2 (05:28→17:51)
[2020-05-31] MEDS: Acetaminophen 500 MG Tablet 1000 MG PO ×3 (05:28→21:58)
[2020-05-31] MEDS: Iron Polysaccharide Complex 150 MG CAPSULE PO (07:47)
--- NOTE | 2020-05-31 09:43 | PN_ITS ---
Patient Problems: Active and Suspected Problems Septic arthritis of right ankle (Acute) Debility (Acute) DVT, bilateral lower limbs (Acute) Urinary tract infection (Acute) Bacteremia due to methicillin susceptible Staphylococcus aureus (MSSA) (Acute) Subjective: Patient seen and examined. No new pedal complaints. Relates pain is largely controlled and PT is going okay though she isn't putting weight through right foot. Patient is concerned about some insurance issues she has had with coverage. She denies N/F/V/C/CP/SOB/no new pedal complaints - Physical Exam Vitals/I&O's: Vital Signs Temp Pulse Resp BP Pulse Ox 97.8 F 73 18 104/68 94 05/31/20 02:15 05/31/20 02:15 05/31/20 02:15 05/31/20 02:15 05/31/20 02:15 Oxygen Delivery Method Room Air Weight: 60.413 kg Body Mass Index (BMI) 25.8 Intake and Output for Last 24 Hours 05/29/20 05/30/20 05/31/20 23:59 23:59 23:59 Intake Total 1010 / 1010 1600 / 1600 Balance 1010 / 1010 1600 / 1600 General: Alert, Oriented x3 HEENT: Atraumatic Extremities: No clubbing, No cyanosis, Capillary Refill Less than 3 Seconds, No Calf Tenderness, Edema - mild right, Peripheral Pulses Normal Skin: No breakdown Musculoskeletal: Muscle Wasting, Tenderness, - - pain with ROM of right ankle, particularly in dorsiflexion. Pain to palpation of talus right foot. arch collapse right foot Neurological: Sensory exam intact to light touch and pain Psych/Mental Status: Normal Affect, Appropriate Microbiology Past 72 Hours 05/30/20 13:32 Stool Enteric Bacteriology - Final 05/30/20 13:32 Stool C. difficile DNA Amplification - Final 05/28/20 19:00 Mucosa - Nasopharyngeal Respiratory Panel (PCR) - Final Current Medications Acetaminophen (Acetaminophen 500 Mg Tablet) 1,000 mg PO Q6H PRN PRN PRN Reason: Pain Score 1-5 Last Admin: 05/31/20 05:28 Dose: 1,000 mg Documented by: Apixaban (Apixaban 5 Mg Tablet) 5 mg PO BID [facility] Last Admin: 05/31/20 05:26 Dose: 5 mg Documented by: Azithromycin (Azithromycin 250 Mg Tablet) 250 mg PO DAILY [facility] Stop: 06/02/20 06:01 Last Admin: 05/31/20 05:26 Dose: 250 mg Documented by: Baclofen (Baclofen 10 Mg Tablet) 10 mg PO TID PRN PRN PRN Reason: MUSCLE SPASM Last Admin: 05/23/20 13:23 Dose: 10 mg Documented by: Calamine/Phenol (Menthol/Lanolin/Calamine/Znox 113 Gm Tube) 1 applic TOPICAL BID [facility]; Protocol Last Admin: 05/31/20 05:28 Dose: 1 applicatio Documented by: Ceftriaxone Sodium 2 gm/ (Sodium Chloride) 50 mls @ 100 mls/hr IV Q24 [facility] Stop: 06/13/20 16:01 Last Infusion: 05/30/20 11:55 Dose: Infused Documented by: Sodium Chloride () 250 mls @ 0 mls/hr IV .Q0M HUSAM Sodium Chloride () 250 mls @ 15 mls/hr IV .[id number] PRN PRN Reason: Saline Flush Last Infusion: 05/30/20 20:53 Dose: 0 mls/hr Documented by: Lactobacillus Acidophilus (Lactobacillus Acidophilus) 1 tablet PO BID [facility] Last Admin: 05/31/20 05:26 Dose: 1 tablet Documented by: Magnesium Hydroxide (Magnesium Hydroxide 30 Ml Udc) 30 ml PO DAILY PRN PRN PRN Reason: Constipation Melatonin (Melatonin 10 Mg Tablet) 10 mg PO QHS [facility] Last Admin: 05/30/20 20:59 Dose: 10 mg Documented by: Oxycodone HCl (Oxycodone 5 Mg Tablet) 5 mg PO Q4H PRN PRN PRN Reason: Pain Score 6-10 Last Admin: 05/26/20 00:54 Dose: 5 mg Documented by: Phenol/Menthol (Phenol/Sodium Phenolate 180ml) 3 spray MM Q2H PRN PRN PRN Reason: SORE THROAT Last Admin: 05/29/20 20:52 Dose: 3 spray Documented by: Polyethylene Glycol (Polyethylene Glycol 3350 17 Gm Packet) 17 gm PO DAILY [facility] Last Admin: 05/31/20 05:28 Dose: Not Given Documented by: Polysaccharide Iron Complex (Iron Polysaccharide Complex 150 Mg Capsule) [facility] Last Admin: 05/31/20 07:47 Dose: 150 mg Documented by: Senna/Docusate Sodium (Senna/Docusate Sodium 1 Tablet) 2 tablet PO BID PRN PRN PRN Reason: Constipation Sodium Chloride (0.9% Saline Lock 10 Ml Syringe) 10 - 40 ml IV UD PRN PRN Reason: Midline Flush Last Admin: 05/30/20 11:01 Dose: 20 ml Documented by: Sodium Chloride (0.9 % Nacl (Sterile) Posiflush 10 Ml) 10 - 40 ml IV UD PRN PRN Reason: Port access or dressing change Sodium Chloride (0.9% Saline Lock 10 Ml Syringe) 10 - 40 ml IV UD PRN PRN Reason: Closed End PICC Flush Sodium Chloride (0.9 % Nacl (Sterile) Posiflush 10 Ml) 10 - 40 ml IV UD PRN PRN Reason: Port access or dressing change Sodium Chloride (Sodium Chloride 0.65% 1 [place].Btl) 2 spray NASAL TID PRN PRN PRN Reason: NASAL DRYNESS Last Admin: 05/11/20 22:31 Dose: 2 spray Documented by: Medical Necessity - Tobacco Use Smoking Status: Former smoker Tobacco Use: Non-smoker Assessment/Plan All Active Problems Avascular necrosis of bone of ankle (Acute) Inability to ambulate due to right ankle or foot (Acute) Acute right ankle pain (Acute) Septic arthritis of right ankle (Acute) Debility (Acute) DVT, bilateral lower limbs (Acute) Urinary tract infection (Acute) Bacteremia due to methicillin susceptible Staphylococcus aureus (MSSA) (Acute) Right ankle and subtalar joint arthritis with pain 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 Right ankle xrays and MRI with significant degenerative disease post traumatic in nature with findings c/w talus AVN - chronic - she has old talus fracture ~30 years ago. Reviewed ankle cultures - no growth. Patient fitted for [employer] ankle brace last week in office with Dr He. Awaiting insurance approval prior to dispensal Ok to progress to protected and partial weightbearing right foot/ankle with brace She was advised to maintain a weight-bear as tolerated to the right lower extremity and to use an assistive device. To continue physical therapy as tolerated Continue abx Podiatry will continue to follow on a weekly basis Will dispense brace once insurance approval gotten. If patient is DC will do as an outpatient Please do not hesitate to call if you have any questions.
--- NOTE | 2020-05-31 09:47 | CASEMGMT ---
Addendum entered by Racquel King 05/31/20 16:16: [facility], [facility], [facility] unable to accept. Assisted Dr. Suarez in completing P2P with Ignacio physician. Assisted in explaining barriers to proper DC. agreed to provide retroauth from 05/27 with new LCD 06/09, and requesting review on 06/07. Physician was karen in stating must participate with therapy on allowed WBS and for stair training. If there is progress, the goal is to provide continued stay until end of IV ATBs. Notified IDT and pt. Explained to pt the above information. Pt agreeable to requests. Will continue to follow. Addendum entered by Racquel King 05/31/20 13:37: [facility] unable to accept. Pt agreeable to refer to [facility]. Addendum entered by Racquel King 05/31/20 10:53: [facility] stated pt has met her deductible and out of pocket max for the year so her IVs are covered at 100%. Notified pt. Inquired about [facility] agency preference. Provided list of in network and area providers. Pt does not have a preference and chose [facility]. Referred to [facility]. Will continue to follow. Original Note: Social Work Received information from [employer] insurance stating dates 05/27-06/02 were not certified. Collaborated with Team whom spoke with insurance for clarification. Insurance stating pt is not approved to be in TCU beginning 05/27, thus pt would need to DC this date 05/31 to avoid further uncovered days. Pt remains on daily IV ATBs. Referred to [facility] to get pricing information. Spoke with pt and explained about information. Explained the options moving forward: to complete peer to peer for retroauth and for continued auth, contact ID Dr to ensure pt cannot change to PO ATB to DC, C will come to home 2x/wk to administer but pt would need to self-administer otherwise or go to infusion clinic. Inquired about children to assist with administration or transportation. Pt explained she still has 18 steps to get into home. Her son that lives with her cannot administer IVs and does not drive nor have a car. The one dtr is a drug addict and cannot assist. The other dtr works full time paramedic and does not have a car currently, thus she is getting rides to/from work. Pt could potentially live with her to avoid the entry steps, but still has to go to 2nd floor to use bathroom. Pt states once she receives boot she can walk and complete steps. According to chart on 05/27, auth for the boot is still pending with insurance. Pt did agree for SW to contact dtr to ensure she cannot assist further. Spoke with about above information. agreed to complete peer to peer and agreeable for pt to remain throughout the remainder of IV course. Pt is unable to change to PO. Contacted P2P line through [place] and left message and contact information for Dr. Suarez. Left message with dtr. Will continue to follow. MADISON HuertaW
[2020-05-31 10:00] VITALS: PULSE 80
[2020-05-31] MEDS: 0.9% Saline Lock 10 ML Syringe IV (11:05)
--- NOTE | 2020-05-31 12:26 | NURSING ---
VERBAL & DEMONSTRATION TEACHING DONE FOR IV FLUSHING & ANTIBIOTIC INFUSION THRU MIDLINE. PATIENT UNABLE TO REACH MIDLINE TO DO PER SELF. SHE IS RIGHT-HANDED & MIDLINE IS IN RT UPPER ARM. 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
[2020-05-31 15:42] VITALS: BP 108/68; PULSE 86; RESP 18; TEMP 36.2; O2SAT 98
[2020-05-31] MEDS: MELATONIN 10 MG TABLET PO (21:58)
[2020-06-01 05:08] VITALS: BP 105/64; PULSE 79; RESP 18; TEMP 36.1; O2SAT 97
[2020-06-01] MEDS: APIXABAN 5 MG TABLET PO ×2 (05:10→17:09)
[2020-06-01] MEDS: Acetaminophen 500 MG Tablet 1000 MG PO ×3 (05:11→21:16)
[2020-06-01] MEDS: Azithromycin 250 MG Tablet PO (05:12)
[2020-06-01] MEDS: Menthol/Lanolin/Calamine/Znox 113 GM Tube 1 APPLIC TOPICAL ×2 (05:12→17:16)
[2020-06-01] MEDS: Iron Polysaccharide Complex 150 MG CAPSULE PO (08:37)
[2020-06-01] MEDS: 0.9% Saline Lock 10 ML Syringe IV (11:36)
[2020-06-01 11:40] VITALS: PULSE 99; RESP 16; O2SAT 97
[2020-06-01 14:37] VITALS: BP 105/70; PULSE 83; RESP 16; TEMP 36; O2SAT 95
[2020-06-01] MEDS: MELATONIN 10 MG TABLET PO (21:16)
[2020-06-02] MEDS: Acetaminophen 500 MG Tablet 1000 MG PO ×3 (03:47→22:10)
[2020-06-02 05:47] LABS: Absolute Lymphocyte Count 1.02 X10^3/uL (0.83-4.51); Absolute Neutrophil Count 8.7 X10^3/uL (2.0-7.7); Basophil# 0.06 X10^3/uL; Basophil% 0.5 % (0-1); Eosinophils% 2.7 % (0-5); Hematocrit 28.3 % (37-47); Hemoglobin 8.7 g/dL (12.0-15.0); Lymphocyte # 1.02 X10^3/ul (4.0); Lymphocyte % 9.3 % (19-41); Mean Corp Hgb Conc 30.7 g/dL (32-36); Mean Corpuscular Hgb 26.9 pg (27.0-32.0); Mean Corpuscular Volume 87.6 fL (81-99); Mean Platelet Vol. 9.4 fl (6.2-12.0); Monocyte# 0.78 X10^3/uL; Monocyte% 7.1 % (0-10); NRBC Flagged by Analyzer 0 % (0-5); Neutrophil # 8.71 X10^3/uL (2.7-7.7); Neutrophil % 79.1 % (47-70); Platelet Count 500 K/mm3 (150-450); RBC Distribution Width CV 14.7 % (11.6-14.6); RBC Distribution Width SD 47.8 fl (35.1-43.9); Red Blood Count 3.23 M/mm3 (4.2-5.4)
[2020-06-02] MEDS: Azithromycin 250 MG Tablet PO (06:05)
[2020-06-02] MEDS: APIXABAN 5 MG TABLET PO ×2 (06:05→17:43)
[2020-06-02] MEDS: Menthol/Lanolin/Calamine/Znox 113 GM Tube 1 APPLIC TOPICAL ×2 (06:05→17:43)
[2020-06-02 06:07] VITALS: BP 99/64; PULSE 83; RESP 16; TEMP 36.9; O2SAT 95
[2020-06-02 06:19] LABS: Anion Gap 6 (5-15); BUN 11 mg/dL (7-18); BUN/Creat Ratio 19.1 RATIO (10-20); Calcium,Total 9.2 mg/dL (8.5-10.1); Chloride 106 mmol/L (98-107); Creatinine, Serum 0.58 mg/dL (0.55-1.02); EST Glomerular Filtration Rate 110 mL/min (>60); Est Glom Filt Rate - Afr Amer 133 mL/min (>60); Glucose 100 mg/dL (74-106); Potassium 3.6 mmol/L (3.5-5.1); Sodium Level 136 mmol/L (136-145)
[2020-06-02] MEDS: Iron Polysaccharide Complex 150 MG CAPSULE PO (08:04)
[2020-06-02] MEDS: 0.9% Saline Lock 10 ML Syringe IV (09:38)
[2020-06-02 10:00] VITALS: PULSE 93; RESP 16; O2SAT 98
[2020-06-02 11:18] VITALS: BP 106/70; PULSE 78; RESP 16; TEMP 36.3; O2SAT 98
[2020-06-02] MEDS: MELATONIN 10 MG TABLET PO (22:10)
[2020-06-02] MEDS: Baclofen 10 MG Tablet PO (22:13)
[2020-06-02 22:26] VITALS: BP 118/67; PULSE 93; RESP 16; TEMP 38.3; O2SAT 98
[2020-06-03 05:00] VITALS: BP 104/65; PULSE 80; RESP 16; TEMP 36.9; O2SAT 96
[2020-06-03] MEDS: APIXABAN 5 MG TABLET PO ×2 (05:12→16:59)
[2020-06-03] MEDS: Menthol/Lanolin/Calamine/Znox 113 GM Tube 1 APPLIC TOPICAL ×2 (05:12→17:00)
[2020-06-03] MEDS: Iron Polysaccharide Complex 150 MG CAPSULE PO (08:32)
[2020-06-03] MEDS: 0.9% Saline Lock 10 ML Syringe IV (09:39)
[2020-06-03] MEDS: Acetaminophen 500 MG Tablet 1000 MG PO ×2 (11:38→18:30)
--- NOTE | 2020-06-03 13:56 | PCM.PROGNOTE ---
Patient Problems: Active and Suspected Problems Septic arthritis of right ankle (Acute) Debility (Acute) DVT, bilateral lower limbs (Acute) Urinary tract infection (Acute) Bacteremia due to methicillin susceptible Staphylococcus aureus (MSSA) (Acute) Subjective: This 69-year-old female who was residing in transitional care unit was seen bedside this afternoon for dispersal of external ankle-foot brace (TayCo) for the right lower extremity. She is recovering from bacteremia and has a history of a talus fracture with collapse of her tibial talar articulation. This past week, she has been able to stand and walk with the guidance of physical therapy. She is using a walker. She still has mild to moderate ankle pain however denies redness or new injuries. - Physical Exam Vitals/I&O's: Vital Signs Temp Pulse Resp BP Pulse Ox 98.4 F 80 16 104/65 96 06/03/20 05:00 06/03/20 05:00 06/03/20 05:00 06/03/20 05:00 06/03/20 05:00 Oxygen Delivery Method Room Air Weight: 60.47 kg Body Mass Index (BMI) 25.8 Intake and Output for Last 24 Hours 06/01/20 06/02/20 06/03/20 23:59 23:59 23:59 Intake Total 770 / 770 1200 / 1200 610 / 610 Balance 770 / 770 1200 / 1200 610 / 610 General: Alert, Oriented x3, Cooperative Extremities: Capillary Refill Less than 3 Seconds, No Calf Tenderness, Edema - Mild Skin: - - No erythema, ecchymosis or infection Musculoskeletal: Muscle Wasting, - - Decreased pain on palpation to the ankle. No pain with attempted passive range of motion of the ankle however continued limited range is noted. The ankle-foot external brace was applied over her supportive sneaker according standard protocol. Her gait was assessed with walker; steady Neurological: Sensory exam intact to light touch and pain Psych/Mental Status: Normal Affect, Appropriate Current Medications Acetaminophen (Acetaminophen 500 Mg Tablet) 1,000 mg PO Q6H PRN PRN PRN Reason: Pain Score 1-5 Last Admin: 06/03/20 11:38 Dose: 1,000 mg Documented by: Apixaban (Apixaban 5 Mg Tablet) 5 mg PO BID HUSAM Last Admin: 06/03/20 05:12 Dose: 5 mg Documented by: Baclofen (Baclofen 10 Mg Tablet) 10 mg PO TID PRN PRN PRN Reason: MUSCLE SPASM Last Admin: 06/02/20 22:13 Dose: 10 mg Documented by: Calamine/Phenol (Menthol/Lanolin/Calamine/Znox 113 Gm Tube) 1 applic TOPICAL BID [facility]; Protocol Last Admin: 06/03/20 05:12 Dose: 1 applicatio Documented by: Ceftriaxone Sodium 2 gm/ (Sodium Chloride) 50 mls @ 100 mls/hr IV Q24 [facility] Stop: 06/13/20 16:01 Last Infusion: 06/03/20 10:45 Dose: Infused Documented by: Sodium Chloride () 250 mls @ 0 mls/hr IV .Q0M HUSAM Sodium Chloride () 250 mls @ 15 mls/hr IV .[id number] PRN PRN Reason: Saline Flush Last Infusion: 06/02/20 21:36 Dose: Infused Documented by: Lactobacillus Acidophilus (Lactobacillus Acidophilus) 1 tablet PO BID [facility] Last Admin: 06/03/20 05:12 Dose: 1 tablet Documented by: Magnesium Hydroxide (Magnesium Hydroxide 30 Ml Udc) 30 ml PO DAILY PRN PRN PRN Reason: Constipation Melatonin (Melatonin 10 Mg Tablet) 10 mg PO QHS [facility] Last Admin: 06/02/20 22:10 Dose: 10 mg Documented by: Oxycodone HCl (Oxycodone 5 Mg Tablet) 5 mg PO Q4H PRN PRN PRN Reason: Pain Score 6-10 Last Admin: 05/26/20 00:54 Dose: 5 mg Documented by: Phenol/Menthol (Phenol/Sodium Phenolate 180ml) 3 spray MM Q2H PRN PRN PRN Reason: SORE THROAT Last Admin: 05/29/20 20:52 Dose: 3 spray Documented by: Polyethylene Glycol (Polyethylene Glycol 3350 17 Gm Packet) 17 gm PO DAILY [facility] Last Admin: 06/03/20 05:12 Dose: Not Given Documented by: Polysaccharide Iron Complex (Iron Polysaccharide Complex 150 Mg Capsule) [facility] Last Admin: 06/03/20 08:32 Dose: 150 mg Documented by: Senna/Docusate Sodium (Senna/Docusate Sodium 1 Tablet) 2 tablet PO BID PRN PRN PRN Reason: Constipation Sodium Chloride (0.9% Saline Lock 10 Ml Syringe) 10 - 40 ml IV UD PRN PRN Reason: Midline Flush Last Admin: 06/03/20 09:39 Dose: 20 ml Documented by: Sodium Chloride (0.9 % Nacl (Sterile) Posiflush 10 Ml) 10 - 40 ml IV UD PRN PRN Reason: Port access or dressing change Sodium Chloride (0.9% Saline Lock 10 Ml Syringe) 10 - 40 ml IV UD PRN PRN Reason: Closed End PICC Flush Sodium Chloride (0.9 % Nacl (Sterile) Posiflush 10 Ml) 10 - 40 ml IV UD PRN PRN Reason: Port access or dressing change Sodium Chloride (Sodium Chloride 0.65% 1 [place].Btl) 2 spray NASAL TID PRN PRN PRN Reason: NASAL DRYNESS Last Admin: 05/11/20 22:31 Dose: 2 spray Documented by: Medical Necessity - Tobacco Use Smoking Status: Former smoker Tobacco Use: Non-smoker Assessment/Plan All Active Problems 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 This was previously dispensed and fitted at the [facility] (05/23/2020) and was performed today in this setting as well. She was advised on proper use. To proceed forward with physical and occupational therapy progression as tolerated. I recommend continued use of a walker. Written and verbal instructions for proper use were provided. Please not hesitate to call if you have any questions. Brenda He DPM, FACFAS [facility] [phone] ---- A standard right lower extremity externally applied ankle foot orthotic (L1971) brace was ordered (non articulating with ability to transfer to articulating) with soft interspace for mold plastic (L2820) to improve mobility, decrease pain, improve lower extremity stability, and to facilitate immobilization and healing of an injury. The patient was not able to obtain adequate treatment with over the counter braces, rest, or other treatments. This brace is necessary for longstanding duration (over 6 months). The patient has an orthopedic condition that this fabrication over a custom mold will aid in better immobilization for this delayed healing injury. The indication and purpose of the device were explained. It is noted her clinical course has included altered gait and activity modification and [id number] bracing over the course of the last 20 years. Her prognosis is fair. She is currently in the transitional care unit undergoing extensive rehabilitation program to help her with gait training and debility prevention. Currently at this time her functional limitations include reduction in activities of daily living for she has not been able to bear weight. She has been using a walker and a wheelchair at this time. It is noted she is unable to use other assistive devices such as a cam walker boot due to concern of limb length discrepancy irritating her current back injuries and problems. She also has edema which makes fitting a brace into the shoe a complex situation. She has collapse of her talus which is consistent with a remote talus fracture with avascular necrosis and degenerative changes. Therefore this condition is permanent. Is needed to control the foot and more than 1 plane including sagittal frontal and transverse to prevent further degenerative progression. This orthopedic status does require a brace to allow continued normal anatomic integrity and healing. The style and type of device to be ordered was discussed. To continue with previous treatment plan. I dispensed the ordered external actue TayCo ankle brace (women's size Medium, right lower extremity (L1971) brace (non articulating with ability to change to articulating in the future) with soft interspace for mold plastic (L2820) to improve mobility, decrease pain, improve lower extremity stability, to facilitate immobilization and healing of an injury. It is noted that the patient was not able to previously obtain adequate treatment with over the counter bracing, rest, or other treatments. This brace is necessary for longstanding duration (over 6 months). The patient has an orthopedic condition that this fabrication over a custom mold will aid in better immobilization for this delayed healing injury. The patient was evaluated with the acute tayco external ankle brace device in the full weight bearing as tolerated in stance and short walk with walker assistance. The patient was educated on the proper break in procedure. The patient was advised to monitor for any persistent discomfort with new use and is aware adjustments may be needed. She completed the necessary durable medical equipment dispensing paperwork previously.
[2020-06-03 14:16] VITALS: BP 99/56; PULSE 78; RESP 14; TEMP 35.9; O2SAT 97
[2020-06-03] MEDS: MELATONIN 10 MG TABLET PO (21:41)
[2020-06-04 05:21] VITALS: BP 106/62; PULSE 85; RESP 18; TEMP 37.2; O2SAT 95
[2020-06-04] MEDS: APIXABAN 5 MG TABLET PO ×2 (05:23→17:20)
[2020-06-04] MEDS: 0.9% Saline Lock 10 ML Syringe IV ×2 (05:23→09:42)
[2020-06-04] MEDS: Menthol/Lanolin/Calamine/Znox 113 GM Tube 1 APPLIC TOPICAL ×2 (05:24→17:21)
[2020-06-04] MEDS: Iron Polysaccharide Complex 150 MG CAPSULE PO (07:57)
[2020-06-04] MEDS: Acetaminophen 500 MG Tablet 1000 MG PO ×3 (07:59→23:43)
[2020-06-04 08:14] LABS: Hemoglobin 8.8 g/dL (12.0-15.0)
[2020-06-04 10:43] VITALS: PULSE 84; RESP 18; O2SAT 94
--- NOTE | 2020-06-04 11:04 | NURSING ---
pt assisted to BR, placed brace on RT shoe as ordered. pt refuses to sit up and leave brace on, does not like sitting in recliner chair. so brace needs reapplied each time she goes to BR. pt back in bed, call light in reach.
[2020-06-04 13:59] VITALS: BP 114/70; PULSE 85; RESP 17; TEMP 36.8; O2SAT 98
[2020-06-04] MEDS: MELATONIN 10 MG TABLET PO (23:44)
[2020-06-05 05:00] VITALS: BP 111/67; PULSE 81; RESP 18; TEMP 36.8; O2SAT 97
[2020-06-05] MEDS: APIXABAN 5 MG TABLET PO ×2 (06:52→17:18)
[2020-06-05] MEDS: Menthol/Lanolin/Calamine/Znox 113 GM Tube 1 APPLIC TOPICAL ×2 (06:53→17:18)
[2020-06-05] MEDS: Acetaminophen 500 MG Tablet 1000 MG PO ×3 (06:55→20:47)
[2020-06-05] MEDS: Iron Polysaccharide Complex 150 MG CAPSULE PO (07:52)
[2020-06-05] MEDS: 0.9% Saline Lock 10 ML Syringe IV (10:15)
[2020-06-05 14:56] VITALS: BP 106/61; PULSE 80; RESP 18; TEMP 36.9; O2SAT 95
[2020-06-05] MEDS: MELATONIN 10 MG TABLET PO (20:47)
[2020-06-05 22:00] VITALS: RESP 16
[2020-06-06] MEDS: Acetaminophen 500 MG Tablet 1000 MG PO ×4 (03:09→22:31)
[2020-06-06 03:17] VITALS: BP 103/64; PULSE 74; RESP 15; TEMP 37.2; O2SAT 94
[2020-06-06 05:00] VITALS: BP 103/61; PULSE 80; RESP 15; TEMP 37.1; O2SAT 95
[2020-06-06] MEDS: Menthol/Lanolin/Calamine/Znox 113 GM Tube 1 APPLIC TOPICAL ×2 (05:58→17:33)
[2020-06-06] MEDS: APIXABAN 5 MG TABLET PO ×2 (05:58→17:33)
[2020-06-06] MEDS: Iron Polysaccharide Complex 150 MG CAPSULE PO (08:47)
[2020-06-06] MEDS: 0.9% Saline Lock 10 ML Syringe IV (10:24)
--- NOTE | 2020-06-06 10:55 | NURSING ---
Pt up in wheel chair for a short time. Educated pt on the importance of not laying in bed all the time and to try and turn. Pt in bed at this time lying on right side.
[2020-06-06 12:42] VITALS: PULSE 82; RESP 18; O2SAT 96
[2020-06-06 14:11] VITALS: BP 104/56; PULSE 89; RESP 16; TEMP 35.9; O2SAT 95
--- NOTE | 2020-06-06 15:53 | NS ---
Per nsg, res is dislikes ensure enlive and ensure pudding and is refusing - will d/c. Continue w/ magic cup w/ lunch and dinner.
[2020-06-06] MEDS: MELATONIN 10 MG TABLET PO (21:54)
[2020-06-06] MEDS: Baclofen 10 MG Tablet PO (22:00)
[2020-06-07 05:16] VITALS: BP 104/66; PULSE 79; RESP 16; TEMP 36.8; O2SAT 94
[2020-06-07] MEDS: 0.9% Saline Lock 10 ML Syringe IV ×2 (05:17→10:32)
[2020-06-07] MEDS: APIXABAN 5 MG TABLET PO ×2 (05:19→17:27)
[2020-06-07] MEDS: Menthol/Lanolin/Calamine/Znox 113 GM Tube 1 APPLIC TOPICAL ×2 (05:19→17:27)
[2020-06-07] MEDS: Acetaminophen 500 MG Tablet 1000 MG PO ×3 (06:49→23:50)
[2020-06-07] MEDS: Iron Polysaccharide Complex 150 MG CAPSULE PO (08:23)
[2020-06-07 13:12] VITALS: BP 95/59; PULSE 82; RESP 16; TEMP 36.7; O2SAT 98
[2020-06-07 20:30] VITALS: BP 90/85; PULSE 85; RESP 16; TEMP 37.6; O2SAT 92
[2020-06-07] MEDS: MELATONIN 10 MG TABLET PO (20:52)
--- NOTE | 2020-06-08 00:53 | PCA ---
patient prefers to get washed in the mornings.
[2020-06-08] MEDS: APIXABAN 5 MG TABLET PO ×2 (05:49→18:07)
[2020-06-08] MEDS: Menthol/Lanolin/Calamine/Znox 113 GM Tube 1 APPLIC TOPICAL ×2 (05:49→18:08)
[2020-06-08] MEDS: Acetaminophen 500 MG Tablet 1000 MG PO ×3 (05:54→22:45)
[2020-06-08 10:00] VITALS: PULSE 91; RESP 16; O2SAT 97
[2020-06-08] MEDS: Iron Polysaccharide Complex 150 MG CAPSULE PO (11:02)
[2020-06-08 14:46] VITALS: BP 137/75; PULSE 96; RESP 15; TEMP 36.9; O2SAT 97
[2020-06-08] MEDS: Baclofen 10 MG Tablet PO (20:31)
--- NOTE | 2020-06-08 21:30 | NURSING ---
Pt ad riccardo in room per therapy, informed her that if she is uncomfortable getting up at night to call us, pt voices understanding. Also encouraged pt to turn on side at night to protect her skin. Pt states she can't sleep on her side, states she feels like she changes positions often. Educated on pressure injuries and prevention.
[2020-06-08] MEDS: MELATONIN 10 MG TABLET PO (22:45)
[2020-06-09] MEDS: Acetaminophen 500 MG Tablet 1000 MG PO ×3 (05:27→20:17)
[2020-06-09] MEDS: Menthol/Lanolin/Calamine/Znox 113 GM Tube 1 APPLIC TOPICAL ×2 (05:28→17:32)
[2020-06-09] MEDS: APIXABAN 5 MG TABLET PO ×2 (05:28→17:31)
[2020-06-09] MEDS: 0.9% Saline Lock 10 ML Syringe IV ×3 (05:29→22:13)
[2020-06-09 05:31] VITALS: BP 103/63; PULSE 78; RESP 16; TEMP 37.2; O2SAT 96
[2020-06-09 05:44] LABS: Absolute Lymphocyte Count 1.37 X10^3/uL (0.83-4.51); Absolute Neutrophil Count 6.4 X10^3/uL (2.0-7.7); Basophil# 0.07 X10^3/uL; Basophil% 0.8 % (0-1); Eosinophil# 0.26 X10^3/uL; Eosinophils% 2.9 % (0-5); Hematocrit 30.7 % (37-47); Hemoglobin 9.3 g/dL (12.0-15.0); Lymphocyte # 1.37 X10^3/ul (4.0); Lymphocyte % 15.5 % (19-41); Mean Corp Hgb Conc 30.3 g/dL (32-36); Mean Corpuscular Hgb 26.7 pg (27.0-32.0); Mean Corpuscular Volume 88.2 fL (81-99); Mean Platelet Vol. 8.8 fl (6.2-12.0); Monocyte# 0.64 X10^3/uL; Monocyte% 7.2 % (0-10); NRBC Flagged by Analyzer 0 % (0-5); Neutrophil # 6.42 X10^3/uL (2.7-7.7); Neutrophil % 72.6 % (47-70); Platelet Count 604 K/mm3 (150-450); RBC Distribution Width CV 15.2 % (11.6-14.6); RBC Distribution Width SD 48.6 fl (35.1-43.9); Red Blood Count 3.48 M/mm3 (4.2-5.4); White Blood Count 8.9 K/mm3 (4.4-11.0)
[2020-06-09 06:09] LABS: Anion Gap 6 (5-15); BUN 13 mg/dL (7-18); BUN/Creat Ratio 25.4 RATIO (10-20); Calcium,Total 9.5 mg/dL (8.5-10.1); Chloride 105 mmol/L (98-107); Creatinine, Serum 0.51 mg/dL (0.55-1.02); EST Glomerular Filtration Rate 126 mL/min (>60); Est Glom Filt Rate - Afr Amer 152 mL/min (>60); Glucose 95 mg/dL (74-106); Potassium 4.3 mmol/L (3.5-5.1); Sodium Level 138 mmol/L (136-145)
[2020-06-09] MEDS: Iron Polysaccharide Complex 150 MG CAPSULE PO (09:30)
[2020-06-09 09:47] VITALS: PULSE 83; RESP 16; O2SAT 95
[2020-06-09 15:00] VITALS: BP 109/64; PULSE 83; RESP 18; TEMP 36.3; O2SAT 95
[2020-06-09] MEDS: MELATONIN 10 MG TABLET PO (21:53)
[2020-06-10 02:48] VITALS: BP 107/56; PULSE 75; RESP 18; TEMP 36.6; O2SAT 98
[2020-06-10] MEDS: APIXABAN 5 MG TABLET PO ×2 (06:44→17:13)
[2020-06-10] MEDS: Acetaminophen 500 MG Tablet 1000 MG PO ×3 (06:44→21:33)
[2020-06-10] MEDS: Menthol/Lanolin/Calamine/Znox 113 GM Tube 1 APPLIC TOPICAL ×2 (06:55→17:14)
[2020-06-10] MEDS: Iron Polysaccharide Complex 150 MG CAPSULE PO (08:21)
[2020-06-10 10:00] VITALS: PULSE 76; RESP 16; O2SAT 98
[2020-06-10] MEDS: 0.9% Saline Lock 10 ML Syringe IV (10:54)
--- NOTE | 2020-06-10 13:24 | CASEMGMT ---
Social Work Spoke with patient about insurance approving through her stop date for IV ATB. Pt agreeable to DC 06/14 as planned. Pt requesting FWW, but no BSC. She is able to safely complete steps now with brace. Pt agreeable to [facility] PT/OT/SN. Provided list of providers including quality and resources use data that is consistent with the patient's preferred geographic region, medical needs and insurance network. Pt to review list and notify SW of choices. Pt states she will DC to her dtr, [facility], in [place]. Referral made to [facility] for FWW. Will continue to follow. [facility] PT/OT/SN, FWW Racquel King, MADISON CHACKO
[2020-06-10 13:41] VITALS: BP 124/62; PULSE 92; RESP 16; TEMP 37; O2SAT 95
--- NOTE | 2020-06-10 13:58 | DCINST_ITS ---
- Discharge Diagnoses Current Active Problems: Current Active and Chronic Problems Septic arthritis of right ankle (Acute) Debility (Acute) DVT, bilateral lower limbs (Acute) Urinary tract infection (Acute) Bacteremia due to methicillin susceptible Staphylococcus aureus (MSSA) (Acute) Anemia (Chronic) You will use the following diet at home:: No restrictions, Regular Your food should be the consistency of: Regular Your liquids should be the consistency of: Regular/Thin Discharge Activity: Return to Normal Activity, May Shower, Use Walker Weight Bearing Status: Partial weight bearing - Right lower extremity. Call your doctor if you observe: Fever of 101 or Higher, Inability to urinate, Inability to have a bowel movement, Shortness of breath, Chest pain, Uncontrolled pain Allergies/Adverse Reactions: Allergies No Known Allergies Allergy (Verified 05/01/20 00:11) Medications to take at Discharge Acetaminophen [Tylenol] 1,000 mg PO Q6H PRN PRN #0 tablet 06/10/20 Apixaban [Eliquis] 5 mg PO BID #60 tab 06/10/20 Baclofen [Lioresal] 10 mg PO TID PRN PRN #30 tab 06/10/20 Iron Polysaccharide Complex [Ferrex 150] 150 mg PO DAILYCM #30 cap 06/10/20 Lactobacillus Acidophilus [Acidophilus] 1 tablet PO BID tablet 06/10/20 Melatonin 10 mg PO QHS tablet 06/10/20 Menthol/Lanolin/Calamine/Znox [Calmoseptine Ointment] 1 applic TOPICAL BID tube 06/10/20 The following prescriptions were given: Apixaban [Eliquis] 5 mg PO BID #60 tab Transmission Status: Pending to [id number] Iron Polysaccharide Complex [Ferrex 150] 150 mg PO DAILYCM #30 cap Transmission Status: Pending to [id number] Baclofen [Lioresal] 10 mg PO TID PRN PRN #30 tab PRN Reason: Muscle Spasm Transmission Status: Pending to [id number] Primary Care Physician: Clyde Linda MD [Primary Care Provider] - Please follow up with your Primary Care Physician in: 1 week. Test Results: Test results from this visit will be discussed in further detail at your follow- up appointment, if applicable. Please Follow Up With: Brenda He DPM When: 1-2 weeks Proposed Discharge Date: 06/14/20
--- NOTE | 2020-06-10 14:00 | PCM.DC.SUM ---
Discharge Date and Diagnosis - Problem List Patient Problems: Active and Suspected Problems Septic arthritis of right ankle (Acute) Debility (Acute) DVT, bilateral lower limbs (Acute) Urinary tract infection (Acute) Bacteremia due to methicillin susceptible Staphylococcus aureus (MSSA) (Acute) Date of Admission: 05/06/20 Date of Discharge: 06/14/20 - Primary Discharge Diagnosis Acute Problems: Active Problems Septic arthritis of right ankle (Acute) Debility (Acute) DVT, bilateral lower limbs (Acute) Urinary tract infection (Acute) Bacteremia due to methicillin susceptible Staphylococcus aureus (MSSA) (Acute) - Secondary Discharge Diagnosis Chronic Problems: Chronic Problems Fracture of talus of right ankle, closed (Chronic) Anemia (Chronic) Hospital Course and Treatment Imaging Results: 05/06/20 15:47 Diet: Regular - General Diet Comments: [place] cup w. lunch and dinner Labs (Last 48 Hours) 06/09/20 06/09/20 05:38 05:38 WBC 8.9 RBC 3.48 L Hgb 9.3 L Hct 30.7 L MCV 88.2 MCH 26.7 L MCHC 30.3 L RDW Std Deviation 48.6 H RDW Coeff of Kristine 15.2 H Plt Count 604 H MPV 8.8 Immature Gran % (Auto) 1.000 H Neut % (Auto) 72.6 H Lymph % (Auto) 15.5 L [place] % (Auto) 7.2 Eos % (Auto) 2.9 Baso % (Auto) 0.8 Absolute Neuts (auto) 6.4 Absolute Lymphs (auto) 1.37 Nucleated RBC % 0 Sodium 138 Potassium 4.3 Chloride 105 Carbon Dioxide 27.0 Anion Gap 6 BUN 13 Creatinine 0.51 L Estim Creat Clear Calc 37.60 Est GFR (MDRD) Af Amer 152 Est GFR (MDRD) Non-Af 126 BUN/Creatinine Ratio 25.4 H Glucose 95 Calcium 9.5 Operations: None Procedures: None Summary of Care Provided: The patient is a 69 year old Female with below past medical history hospitalized for right ankle septic arthritis, MSSA bacteremia secondary to MSSA urinary tract infection, complicated by bilateral lower extremity DVT, admitted to TCU with debility, here for rehabilitation, strengthening, intravenous antibiotics, prior to discharge home with family. Andi thru 07/30/2020 to complete 3 month therapy for bilateral lower extremity DVT. Discharge to daughter's house, Home Health Care PT/OT/SN, Front wheeled walker. Patient Problems: Active and Suspected Problems Septic arthritis of right ankle (Acute) Debility (Acute) DVT, bilateral lower limbs (Acute) Urinary tract infection (Acute) Bacteremia due to methicillin susceptible Staphylococcus aureus (MSSA) (Acute) - Physical Exam Vitals/I&O's: Vital Signs Temp Pulse Resp BP Pulse Ox 98.6 F 92 16 124/62 H 95 06/10/20 13:41 06/10/20 13:41 06/10/20 13:41 06/10/20 13:41 06/10/20 13:41 Oxygen Delivery Method Room Air Weight: 59.534 kg Body Mass Index (BMI) 25.8 Intake and Output for Last 24 Hours 06/08/20 06/09/20 06/10/20 23:59 23:59 23:59 Intake Total 1140 / 1140 1151.75 / 1151.75 650 / 650 Balance 1140 / 1140 1151.75 / 1151.75 650 / 650 Current Medications Acetaminophen (Acetaminophen 500 Mg Tablet) 1,000 mg PO Q6H PRN PRN PRN Reason: Pain Score 1-5 Last Admin: 06/10/20 13:45 Dose: 1,000 mg Documented by: Apixaban (Apixaban 5 Mg Tablet) 5 mg PO BID [facility] Last Admin: 06/10/20 06:44 Dose: 5 mg Documented by: Baclofen (Baclofen 10 Mg Tablet) 10 mg PO TID PRN PRN PRN Reason: MUSCLE SPASM Last Admin: 06/08/20 20:31 Dose: 10 mg Documented by: Calamine/Phenol (Menthol/Lanolin/Calamine/Znox 113 Gm Tube) 1 applic TOPICAL BID [facility]; Protocol Last Admin: 06/10/20 06:55 Dose: 1 applicatio Documented by: Ceftriaxone Sodium 2 gm/ (Sodium Chloride) 50 mls @ 100 mls/hr IV Q24 [facility] Stop: 06/13/20 16:01 Last Infusion: 06/10/20 12:01 Dose: Infused Documented by: Sodium Chloride () 250 mls @ 0 mls/hr IV .Q0M HUSAM Sodium Chloride () 250 mls @ 15 mls/hr IV .[id number] PRN PRN Reason: Saline Flush Last Infusion: 06/09/20 11:00 Dose: 0 mls/hr Documented by: Lactobacillus Acidophilus (Lactobacillus Acidophilus) 1 tablet PO BID [facility] Last Admin: 06/10/20 06:44 Dose: 1 tablet Documented by: Magnesium Hydroxide (Magnesium Hydroxide 30 Ml Udc) 30 ml PO DAILY PRN PRN PRN Reason: Constipation Melatonin (Melatonin 10 Mg Tablet) 10 mg PO QHS [facility] Last Admin: 06/09/20 21:53 Dose: 10 mg Documented by: Oxycodone HCl (Oxycodone 5 Mg Tablet) 5 mg PO Q4H PRN PRN PRN Reason: Pain Score 6-10 Last Admin: 05/26/20 00:54 Dose: 5 mg Documented by: Phenol/Menthol (Phenol/Sodium Phenolate 180ml) 3 spray MM Q2H PRN PRN PRN Reason: SORE THROAT Last Admin: 05/29/20 20:52 Dose: 3 spray Documented by: Polyethylene Glycol (Polyethylene Glycol 3350 17 Gm Packet) 17 gm PO DAILY PRN PRN Reason: Constipation Polysaccharide Iron Complex (Iron Polysaccharide Complex 150 Mg Capsule) [facility] Last Admin: 06/10/20 08:21 Dose: 150 mg Documented by: Senna/Docusate Sodium (Senna/Docusate Sodium 1 Tablet) 2 tablet PO BID PRN PRN PRN Reason: Constipation Sodium Chloride (0.9% Saline Lock 10 Ml Syringe) 10 - 40 ml IV UD PRN PRN Reason: Midline Flush Last Admin: 06/10/20 10:54 Dose: 10 ml Documented by: Sodium Chloride (0.9 % Nacl (Sterile) Posiflush 10 Ml) 10 - 40 ml IV UD PRN PRN Reason: Port access or dressing change Sodium Chloride (0.9% Saline Lock 10 Ml Syringe) 10 - 40 ml IV UD PRN PRN Reason: Closed End PICC Flush Sodium Chloride (0.9 % Nacl (Sterile) Posiflush 10 Ml) 10 - 40 ml IV UD PRN PRN Reason: Port access or dressing change Sodium Chloride (Sodium Chloride 0.65% 1 [place].Btl) 2 spray NASAL TID PRN PRN PRN Reason: NASAL DRYNESS Last Admin: 05/11/20 22:31 Dose: 2 spray Documented by: Discharge Diet: No Restrictions Discharge Activity: Return to Normal Activity, May Shower, Use Walker Weight Bearing Status: Partial weight bearing - Right lower extremity. Call your doctor if you observe: Fever of 101 or Higher, Inability to urinate, Inability to have a bowel movement, Shortness of breath, Chest pain, Uncontrolled pain Home Medications: Medications to take at Discharge Acetaminophen [Tylenol] 1,000 mg PO Q6H PRN PRN #0 tablet 06/10/20 Apixaban [Eliquis] 5 mg PO BID #60 tab 06/10/20 Baclofen [Lioresal] 10 mg PO TID PRN PRN #30 tab 06/10/20 Iron Polysaccharide Complex [Ferrex 150] 150 mg PO DAILYCM #30 cap 06/10/20 Lactobacillus Acidophilus [Acidophilus] 1 tablet PO BID tablet 06/10/20 Melatonin 10 mg PO QHS tablet 06/10/20 Menthol/Lanolin/Calamine/Znox [Calmoseptine Ointment] 1 applic TOPICAL BID tube 06/10/20 Following Prescriptions Were Given to Patient: Apixaban [Eliquis] 5 mg PO BID #60 tab Transmission Status: Pending to [id number] Iron Polysaccharide Complex [Ferrex 150] 150 mg PO DAILYCM #30 cap Transmission Status: Pending to [id number] Baclofen [Lioresal] 10 mg PO TID PRN PRN #30 tab PRN Reason: Muscle Spasm Transmission Status: Pending to [id number] Primary Care Physician: Clyde Linda MD [Primary Care Provider] - Please follow up with your Primary Care Physician in: 1 week. Please Follow Up With: Brenda He DPM When: 1-2 weeks Disposition: Home with Home Health Minutes spent on discharge:: 35 Patient Condition:: Stable Medical Necessity - Tobacco Use Smoking Status: Former smoker Tobacco Use: Non-smoker Meaningful Use Info Meaningful Use Diagnoses (Choose all that apply): None applicable
[2020-06-10] MEDS: MELATONIN 10 MG TABLET PO (21:34)
[2020-06-11 06:02] VITALS: BP 106/61; PULSE 81; RESP 16; TEMP 36.9; O2SAT 92
[2020-06-11] MEDS: APIXABAN 5 MG TABLET PO ×2 (06:03→17:45)
[2020-06-11] MEDS: Acetaminophen 500 MG Tablet 1000 MG PO ×3 (06:05→22:01)
[2020-06-11] MEDS: Menthol/Lanolin/Calamine/Znox 113 GM Tube 1 APPLIC TOPICAL ×2 (06:24→17:46)
[2020-06-11] MEDS: Iron Polysaccharide Complex 150 MG CAPSULE PO (08:39)
[2020-06-11] MEDS: 0.9% Saline Lock 10 ML Syringe IV (11:08)
[2020-06-11 14:27] VITALS: BP 106/65; PULSE 79; RESP 16; TEMP 36.9; O2SAT 97
[2020-06-11] MEDS: MELATONIN 10 MG TABLET PO (20:21)
[2020-06-11 22:00] VITALS: RESP 16
[2020-06-12 06:33] VITALS: BP 110/65; PULSE 72; RESP 16; TEMP 36.9; O2SAT 95
[2020-06-12] MEDS: APIXABAN 5 MG TABLET PO ×2 (06:34→17:08)
[2020-06-12] MEDS: Menthol/Lanolin/Calamine/Znox 113 GM Tube 1 APPLIC TOPICAL ×2 (06:34→17:08)
[2020-06-12] MEDS: Acetaminophen 500 MG Tablet 1000 MG PO ×3 (06:37→21:38)
[2020-06-12] MEDS: Iron Polysaccharide Complex 150 MG CAPSULE PO (07:58)
[2020-06-12] MEDS: 0.9% Saline Lock 10 ML Syringe IV (10:33)
[2020-06-12 11:41] VITALS: PULSE 81; RESP 18; O2SAT 96
[2020-06-12 14:08] VITALS: BP 115/66; PULSE 89; RESP 16; TEMP 36.4; O2SAT 95
[2020-06-12] MEDS: MELATONIN 10 MG TABLET PO (21:36)
[2020-06-13 04:55] VITALS: BP 102/68; PULSE 68; RESP 15; TEMP 36.7; O2SAT 94
[2020-06-13] MEDS: APIXABAN 5 MG TABLET PO ×2 (04:57→17:37)
[2020-06-13] MEDS: Menthol/Lanolin/Calamine/Znox 113 GM Tube 1 APPLIC TOPICAL ×2 (04:58→17:38)
[2020-06-13] MEDS: Iron Polysaccharide Complex 150 MG CAPSULE PO (07:50)
[2020-06-13] MEDS: Acetaminophen 500 MG Tablet 1000 MG PO ×2 (07:52→21:52)
--- NOTE | 2020-06-13 11:33 | NURSING ---
Dr. Deluca notified of current Ceftriaxone schedule and missed dose yesterday. Dr. Deluca stated no new orders.
--- NOTE | 2020-06-13 13:05 | NURSING ---
Midline removed per protocol, measuring 12 cm. pt tolerated well, no s/s of redness or infection. Sterile dressing applied.
[2020-06-13] MEDS: 0.9% Saline Lock 10 ML Syringe IV (14:29)
[2020-06-13 15:09] VITALS: BP 109/67; PULSE 78; RESP 14; TEMP 36.9; O2SAT 95
--- NOTE | 2020-06-13 15:19 | CASEMGMT ---
Social Work Followed up with pt on HHC choice. Pt prefers [facility] - second choice is [facility]. Referral made to [facility] for PT/OT/SN. MADISON HuertaW
--- NOTE | 2020-06-13 15:45 | PCM.DC.POD ---
Discharge Diet: No Restrictions Discharge Activity: Return to Normal Activity, May Shower, Use Walker Weight Bearing Status: Full weight bearing - ok to full weightbear as tolerated with walker and external ankle brace (tayco) for assistance right lower extremity Keep extremity elevated above heart level: Right Leg Call your doctor if you observe: Fever of 101 or Higher, Inability to urinate, Inability to have a bowel movement, Shortness of breath, Chest pain, Uncontrolled pain Allergies/Adverse Reactions: Allergies No Known Allergies Allergy (Verified 05/01/20 00:11) Medications to take at Discharge Acetaminophen [Tylenol] 1,000 mg PO Q6H PRN PRN #0 tab 06/10/20 Apixaban [Eliquis] 5 mg PO BID #60 tab 06/10/20 Baclofen [Lioresal] 10 mg PO TID PRN PRN #30 tab 06/10/20 Iron Polysaccharide Complex [Ferrex 150] 150 mg PO DAILYCM #30 cap 06/10/20 Lactobacillus Acidophilus [Acidophilus] 1 tab PO BID tab 06/10/20 Melatonin 10 mg PO QHS tab 06/10/20 Menthol/Lanolin/Calamine/Znox [Calmoseptine Ointment] 1 applic TOPICAL BID tube 06/10/20 The following prescriptions were given: Apixaban [Eliquis] 5 mg PO BID #60 tab Transmission Status: Received by [id number] Iron Polysaccharide Complex [Ferrex 150] 150 mg PO DAILYCM #30 cap Transmission Status: Received by [facility] Baclofen [Lioresal] 10 mg PO TID PRN PRN #30 tab PRN Reason: Muscle Spasm Transmission Status: Received by [facility] Primary Care Physician: Clyde Linda MD [Primary Care Provider] - Please follow up with your Primary Care Physician in: 1 week. Test Results: Test results from this visit will be discussed in further detail at your follow-up appointment, if applicable. Please Follow Up With: Brenda He DPM When: 1-2 weeks. [facility] to schedule; [phone]. Proposed Discharge Date: 06/14/20
[2020-06-13] MEDS: MELATONIN 10 MG TABLET PO (21:53)
[2020-06-14 05:00] VITALS: BP 116/68; PULSE 74; RESP 16; TEMP 36.7; O2SAT 93
[2020-06-14] MEDS: APIXABAN 5 MG TABLET PO (05:54)
[2020-06-14] MEDS: Acetaminophen 500 MG Tablet 1000 MG PO (05:54)
[2020-06-14] MEDS: Menthol/Lanolin/Calamine/Znox 113 GM Tube 1 APPLIC TOPICAL (05:55)
[2020-06-14] MEDS: Iron Polysaccharide Complex 150 MG CAPSULE PO (07:36)
[2020-06-14 08:57] VITALS: PULSE 84; RESP 18; O2SAT 96
== END 2020-06-14 10:30 | disposition home health service (06) | DRG 549 ==
PROVIDERS: Admitting Provider Family Medicine Geriatric Medicine; PCP Family Medicine; Visit Provider Family Medicine Geriatric Medicine
DX: M00.071 Staphylococcal arthritis, right ankle and foot (principal); I82.403 Acute embolism and thrombosis of unspecified deep veins of lower extremity, bilateral; L03.115 Cellulitis of right lower limb; N39.0 Urinary tract infection, site not specified; M87.871 Other osteonecrosis, right ankle; Z87.891 Personal history of nicotine dependence; B95.61 Methicillin susceptible Staphylococcus aureus infection as the cause of diseases classified elsewhere
CPT/HCPCS: 36415; 80048; 85014; 85018; 85025; 87426; 87493; 87506; 87633; 87635; 97110; 97116; 97162; 97166; 97530; 97535; 97802; J7050; A4216; J0696; U0002

== ENCOUNTER → 2020-06-22 08:43 | Outpatient (CLI) | payer BC, MEDICARE, SELFPAY ==
[2020-06-22 10:12] LABS: Absolute Lymphocyte Count 1.65 X10^3/uL (0.83-4.51); Absolute Neutrophil Count 3.3 X10^3/uL (2.0-7.7); Basophil# 0.07 X10^3/uL; Basophil% 1.2 % (0-1); Eosinophils% 5.1 % (0-5); Hemoglobin 10.6 g/dL (12.0-15.0); Lymphocyte # 1.65 X10^3/ul (4.0); Lymphocyte % 28.3 % (19-41); Mean Corp Hgb Conc 30.3 g/dL (32-36); Mean Corpuscular Hgb 26.6 pg (27.0-32.0); Mean Corpuscular Volume 87.7 fL (81-99); Mean Platelet Vol. 10.6 fl (6.2-12.0); Monocyte# 0.49 X10^3/uL; Monocyte% 8.4 % (0-10); NRBC Flagged by Analyzer 0 % (0-5); Neutrophil # 3.26 X10^3/uL (2.7-7.7); Platelet Count 436 K/mm3 (150-450); RBC Distribution Width CV 15.3 % (11.6-14.6); RBC Distribution Width SD 49.1 fl (35.1-43.9); Red Blood Count 3.99 M/mm3 (4.2-5.4); White Blood Count 5.8 K/mm3 (4.4-11.0)
[2020-06-22 10:28] LABS: Vitamin B12 609 pg/mL (211-911)
[2020-06-22 10:37] LABS: Ferritin 112 ng/mL (8-252); Iron 43 ug/dL (50-170); Iron Binding Capacity,Total 276 ug/dL (250-450); T4 Free Direct 1.07 ng/dL (0.76-1.46); Thyroid Stim Hormone (TSH) 0.39 uIU/mL (0.358-3.74)
== END ==
PROVIDERS: PCP Family Medicine; Referring Provider Family Medicine; Visit Provider Family Medicine
DX: D64.9 Anemia, unspecified (principal); E04.1 Nontoxic single thyroid nodule
CPT/HCPCS: 36415; 82607; 82728; 82746; 83540; 83550; 84439; 84443; 85025

== ENCOUNTER → 2020-07-01 09:51 | Outpatient (CLI) | payer BC, SELFPAY ==
--- NOTE | 2020-07-01 10:17 | US_ITS ---
STUDY: THYROID ULTRASOUND REASON FOR EXAM: Female, 69 years old. Palpable nodule felt by physician TECHNIQUE: Ultrasound evaluation of the thyroid was performed with real-time and static salguero-scale imaging. COMPARISON: None. FINDINGS: RIGHT LOBE: The right lobe of the thyroid gland measures 4.3 x 1.9 x 1.5 cm. There is a homogeneous echotexture. There are no demonstrated solid, cystic or complex lesions. LEFT LOBE: The left lobe of the thyroid gland measures 4.3 x 2.1 x 1.1 cm. There is a homogeneous echotexture. There are no demonstrated solid, cystic or complex lesions. ISTHMUS: The isthmus measures 3 mm. The regional lymph nodes are normal. US/Thyroid IMPRESSION: Normal ultrasound examination of the thyroid. Electronically Signed: Jaden Pearson MD at 11:38 EST , Service support ,
== END ==
PROVIDERS: PCP Family Medicine; Referring Provider Family Medicine; Visit Provider Family Medicine
DX: E04.1 Nontoxic single thyroid nodule (principal)
CPT/HCPCS: 76536

== ENCOUNTER → 2020-07-06 11:14 | Outpatient (CLI) | payer BC, SELFPAY ==
--- NOTE | 2020-07-06 11:16 | RAD_ITS ---
STUDY: X-RAY - CERVICAL SPINE REASON FOR EXAM: Female, 69 years old. Neck pain and spasms TECHNIQUE: 6 view(s) of the cervical spine were obtained. COMPARISON: None FINDINGS: Normal anterior atlantoaxial articulation. Normal odontoid process. Normal cervical lordosis. Normal vertebral bodies and endplates. Mild disc space narrowing throughout the cervical spine. Normal visualized intervertebral neuroforamina. The soft tissue structures are unremarkable. RAD/Cerv Spine 4 or 5 Views IMPRESSION: Mild degenerative changes, no acute findings Electronically Signed: Jaden Pearson MD at 16:27 EDT , Service support ,
--- NOTE | 2020-07-06 11:17 | RAD_ITS ---
STUDY: X-RAY - LUMBAR SPINE REASON FOR EXAM: Female, 69 years old. Back pain and spasms TECHNIQUE: 5 view(s) of the lumbar spine were obtained. COMPARISON: None FINDINGS: There is straightening of the normal lumbar lordosis. There is a dextroscoliosis of the lumbar spine. There is a normal alignment of the vertebrae. There is diffuse demineralization with multi-level endplate spondylosis. There is multi-level degenerative disc disease with multi-level disc space narrowing. There is no demonstrated fracture. There is atherosclerotic calcification of the abdominal aorta without a demonstrated aneurysm. RAD/L/S Spine Min 4 Views IMPRESSION: Multilevel degenerative changes, no acute findings Electronically Signed: Jaden Pearson MD at 16:28 EDT , Service support ,
== END ==
PROVIDERS: PCP Family Medicine; Referring Provider Family Medicine; Visit Provider Family Medicine
DX: M54.2 Cervicalgia (principal); M54.5 Low back pain
CPT/HCPCS: 72050; 72110

== ENCOUNTER 2020-07-19 06:17 | Day surgery (SDC) | payer BC, SELFPAY ==
[2020-07-06 15:24] VITALS: BMI 27.5
[2020-07-19 06:48] VITALS: BP 126/82; PULSE 14; RESP 14; TEMP 36.9; O2SAT 98; BMI 25.2
--- NOTE | 2020-07-19 06:53 | PCM.HP.BLA ---
Problem List (1) Anemia Status: Chronic Qualifiers: Anemia type: unspecified type Qualified Code(s): D64.9 - Anemia, unspecified History and Physical Date of Admission: 07/19/20 Intake Visit Reasons: CSCOPE, ANEMIA Chief Complaint: anemia Ground Water Contractor Required: No Is patient in pain?: No Allergies No Known Allergies Allergy (Verified 07/06/20 15:25) Medications Apixaban [Eliquis] 5 mg PO BID #60 tab 06/10/20 [Rx Confirmed 07/06/20] Baclofen [Lioresal] 10 mg PO TID PRN PRN #30 tab 06/10/20 [Rx Confirmed 07/06/20] Iron Polysaccharide Complex [Ferrex 150] 150 mg PO DAILYCM #30 cap 06/10/20 [Rx Confirmed 07/06/20] Lactobacillus Acidophilus [Acidophilus] 1 tab PO BID tab 06/10/20 [Rx Confirmed 07/06/20] Melatonin 10 mg PO QHS tab 06/10/20 [Rx Confirmed 07/06/20] Menthol/Lanolin/Calamine/Znox [Calmoseptine Ointment] 1 applic TOPICAL BID tube 06/10/20 [Rx Confirmed 07/06/20] ibuprofen 200 mg tablet 200 mg PO Q6H PRN 07/06/20 [History Confirmed 07/06/20] PFSH Medical History Fracture of talus of right ankle, closed (Chronic) Avascular necrosis of bone of ankle (Acute) Inability to ambulate due to right ankle or foot (Acute) Acute right ankle pain (Acute) Septic arthritis of right ankle (Acute) Debility (Acute) DVT, bilateral lower limbs (Acute) Urinary tract infection (Acute) Bacteremia due to methicillin susceptible Staphylococcus aureus (MSSA) (Acute) Anemia (Chronic) Surgical History Hx of tonsillectomy (Acute) History of ectopic (Acute) Hx of lithotripsy (Acute) Hx of bladder repair surgery (Acute) Family History Father Hypertension Mother CVA (cerebral vascular accident) Social History (Updated 07/06/20 @ 17:[address] Elvis Feliz MD) Smoking Status: Former smoker second hand exposure: No alcohol intake: never substance use type: does not use caffeine: Yes what type of physical activity do you participate in: none frequency: does not exercise HPI HPI HPI: SUELLEN LONG, is a 69 F who presents to the office today for surgical consultation regarding anemia. The patient is referred by her primary care physician Dr Clyde Linda and a written copy of my surgical consult and recommendations will return to him. The patient states that she was hospitalized at the [facility] and then admitted to the rehab unit from approximately May 01 to 14 June. She claims that she had a urinary tract infection and then developed a septic joint in her right ankle. She was treated for that by . The patient states she did not require surgical intervention. She states that during that hospitalization she was noted to have anemia. She has not noticed any bright red blood per rectum or melena. She states that lifelong she has had anemia. She claims that during her hospitalization her stool was checked for blood and was fortunately negative. She does take Advil. She is on anticoagulation for bilateral lower extremity deep venous thrombosis. A venous duplex exam of May 01, 2020 demonstrated acute deep vein thrombosis of bilateral gastrocnemius veins. As of June 09, 2020 her BUN is 13 creatinine 0.51. Her hemoglobin was 9.3 and hematocrit 30.7. As of June 22, 2020 her iron level was 43 which was abnormally low. Because of the DVT she is currently on Eliquis therapy 5 mg twice daily. Because of the anemia she is on Ferrex 1 5050 mg capsule daily. She states that she has never had an upper or lower GI study. She does note that she has intermittent heartburn and reflux symptoms. She states that she is not on any chronic medications for that. HPI HPI HPI: SUELLEN LONG, is a 69 F who presents to the office today for ROS General General: No weight change, appetite, fatigue, colon cancer, breast cancer or weakness HEENT HEENT: No difficulty swallowing, eye injury, eye surgery, swollen glands or hoarseness Endo Endocrine: No thyroid disease, diabetes mellitus, thyroid cancer, Hair loss, heat intolerance or cold intolerance Skin Skin: No rash or changing moles Musc Musculoskeletal: Yes back problems and arthritis; no rheumatoid arthritis, gout or joint pain Cardio Cardiovascular: No murmur, pacemaker, heart disease, atrial fibrillation, high blood pressure, heart attack, heart stent, palpitations, shortness of breat with exertion or chest pain Psych Psychiatric: No depression, anxiety or hearing voices Resp Respiratory: No shortness of breath, No sleep apnea, No cough, No COPD, No asthma, No emphysema, No wheezing Gastro Gastrointestinal: No abdominal pain, No nausea or vomiting, No diarrhea, No constipation, No blood in stool, Yes acid reflux, No hemorrhoids, No ulcers, No gallbladder problem, No black,tarry stools Ryne Hematologic: No blood thinners, No blood disorders, No bleeding, No anemia, No blood clots Neuro Neurologic: No system reviewed and no additional complaints, except as docu, No as per HPI, No abnormal walking, No abnormal hearing, No abnormal movements, No abnormal speech, No behavioral changes, No burning sensations, No confusion, No seizure-like activity, No unsteadiness, No dizziness, No localized weakness, No frequent falls, No headache(s), No lack of coordination, No loss of vision, No memory loss, No numbness, No other visual disturbances, No radiating pain, No restless legs, No sensory deficit, No fainting, No tingling, No tremor(s), No weakness, No other Exam Const General: cooperative, comfortable, no acute distress, frail appearing Nutritional Appearance: average body habitus Orientation: alert, awake, oriented x3 Other: Patient has a supportive boot right foot. She utilizes a walker to assist with walking and balance [facility] Head: normal to inspection Eyes General: appearance normal, both eyes and all related structures Resp Effort & Inspection: normal respiratory effort Auscultation: clear to auscultation bilaterally Cardio Rate: regular rate Rhythm: regular rhythm Heart Sounds: no murmurs GI Palpation: soft, no hepatosplenomegaly Auscultation: normal bowel sounds Other: Nontender Musc Cervical Spine: normal cervical lordosis Neuro Cognition: normal cognition Extrem General: no calf tenderness Psych Affect: normal affect Assessment & Plan Problems 1. Chronic deep vein thrombosis (DVT) of calf muscle vein of both lower extremities I82.563 2. Iron deficiency anemia, unspecified iron deficiency anemia type D50.9 Plan The patient does have some reflux heartburn symptoms. Chronic anemia. She has never had either an upper or lower scope. I propose for her a combined esophagogastroduodenoscopy with possible biopsy and colonoscopy with possible biopsy or polypectomy as indicated. She is aware of the technique, benefit, risk, alternatives. We will have her hold her Eliquis 1 day preprocedure. We will utilize monitored anesthesia care because of his medical core morbidities. She has had an opportunity to ask and have questions answered. We will schedule and proceed at her discretion. Her daughter was present throughout the entire interview and examination. I appreciate the opportunity of assisting with her surgical care. Copy: Dr Clyde Feliz M.D., F.A.C.S. Coding Level of Care Code 55556 Diagnoses Chronic deep vein thrombosis (DVT) of calf muscle vein of both lower extremities I82.563 ??Affected thrombotic vein of extremity: calf muscle vein ??Chronicity: chronic Iron deficiency anemia, unspecified iron deficiency anemia type D50.9 ??Anemia type: iron deficiency ??Iron deficiency anemia type: unspecified iron deficiency I have re-examined the patient. There are no clinical changes since date of exam. Procedure Criteria Procedure Type: Elective COVID Risk Discussion: The surgeon/proceduralist and patient have discussed in detail the risk of exposure to and/or potential harm posed by the COVID-19 virus with having a surgery/procedure at this time versus the risk of delaying the surgery/procedure. It is not possible to know either the risk of delaying the surgery or procedure or chance of getting an infection with perfect accuracy, but a joint decision was made between the patient and the surgeon/proceduralist to proceed at this time with the scheduled surgery/procedure as indicated on the consent form.
[2020-07-19] MEDS: Lactated Ringers 1,000 ML 100 ML IV (07:03)
--- NOTE | 2020-07-19 07:30 | EGD_PTH ---
PATIENT: SUELLEN LONG LOC: EN U#:[id number] AGE/SX: 69/F ROOM: RE07/19/[address]: Dr. Elvis Feliz MD : 1950 BED: DIS: 07/19/2020 SPEC #: [id number] RECD: 07/19/20 11:20 STATUS: JAMEY CATRACHITO #: [id number] MEAGHAN: 07/19/20 07:[address]: Elvis Feliz DEPT: SURGICAL PATHOLOGY RECD BY: Billie Maher ENTERED: 07/19/20 12:25 SP TYPE: EGD BIOPSY [facility] DR: Dr. Clyde Linda MD Tissues: A - Duodenum, NOS B - Gastric mucous membrane C - Esophagus, NOS D - Esophagus, NOS E - Transverse colon F - Transverse colon Procedures: Surgery Specimen Level IV HEADER OPERATION: [place] [place] DIAGNOSIS: Iron deficiency anemia TISSUE SUBMITTED: A - Duodenal biopsy, B - Antrum biopsy, H. pylori and path, C - Distal esophagus biopsy, D - Mid esophagus biopsy, E - Mid transverse polyp, F - Mid transverse polyp #2 MICROSCOPIC DIAGNOSIS A. Duodenum, biopsy: Focal gastric metaplasia. Mild Juan's gland hyperplasia. B. Gastric antrum, biopsy: Chronic gastritis. See comment. C. Distal esophagus, biopsy: Focal changes of reflux. D. Mid esophagus, biopsy: Fragment of benign squamous mucosa. No evidence of inflammation. E. Mid transverse colon polyp, biopsy: Tubular adenoma. F. Mid transverse colon polyp #2, biopsy: Tubular adenoma. AM:isela 07/20/2020 COMMENT B. The results of immunohistochemistry for Helicobacter pylori will be reported separately ([id number]). MICROSCOPIC DESCRIPTION Slides are reviewed. GROSS DESCRIPTION A - Received in fixative is one container labeled with the patient's name and designated duodenal biopsy. The specimen consists of one irregular fragment of light lee soft tissue that measures 0.4 x 0.2 x 0.1 cm. The specimen is totally submitted in one cassette. B - Received in fixative is one container labeled with the patient's name and designated antrum biopsy. The specimen consists of two irregular fragments of light lee soft tissue that in aggregate measure 0.8 x 0.3 x 0.1 cm. The specimen is totally submitted in one cassette. C - Received in fixative is one container labeled with the patient's name and designated distal esophagus biopsy. The specimen consists of multiple irregular fragments of light lee soft tissue that in aggregate measure 0.7 x 0.2 x 0.1 cm. The specimen is totally submitted in one cassette. D - Received in fixative is one container labeled with the patient's name and designated mid esophagus biopsy. The specimen consists of one irregular fragment of light lee soft tissue that measures 0.3 x 0.3 x 0.1 cm. The specimen is totally submitted in one cassette. E - Received in fixative is one container labeled with the patient's name and designated mid transverse polyp. The specimen consists of a fragment of lee-pink polyp measuring 0.5 x 0.5 x 0.3 cm. Multiple fragments of fecal material are also noted. F - Received in fixative is one container labeled with the patient's name and designated mid transverse polyp #2. The specimen consists of one irregular fragment of light lee soft tissue that measures 0.4 x 0.3 x 0.1 cm. The specimen is totally submitted in one cassette. / SJ:isela 07/19/20 TC:3 CPT: 84228 x6
--- NOTE | 2020-07-19 07:30 | IMM_PTH ---
PATIENT: SUELLEN LONG LOC: ULISES U#:[id number] AGE/SX: 69/F ROOM: RE07/19/[address]: Dr. Elvis Feliz MD : 1950 BED: DIS: 07/19/2020 SPEC #: [id number] RECD: 07/19/20 12:02 STATUS: JAMEY RESteve #: [id number] MEAGHNA: 07/19/20 07:[address]: Elvis Feliz DEPT: IMMUNOHISTOCHEMISTRY RECD BY: Taniya Gerard ENTERED: 07/19/20 12:03 SP TYPE: IMMUNO OTHR DR: Dr. Clyde Linda MD Tissues: B - Stomach, NOS Procedures: H Pylori (initial) PHYSICIAN & INSTITUTION [place] [address] SPECIMEN INFORMATION: Tissue Source: B - Antrum biopsy Clinical Info: Iron deficiency anemia Specimen Number: [id number] CPT code: 27928 METHODOLOGY: Deparaffinized sections of prefer/formalin-fixed tissue or PAP/DQ stained slides are incubated with monoclonal/polyclonal antibodies/oligonucleotide probes. Localization is made via biotin free immunoperoxidase method. Appropriate controls are performed and reacted as expected. Results on target cell population are indicated in the following table: RESULTS: ANTIBODY / CLONE RESULT Block B H Pylori (polyclonal) negative These tests were developed and their performance characteristics determined by [facility]. They may not have been cleared or approved by the U.S. Food and Drug Administration. The FDA has determined that such clearance or approval is not necessary. INTERPRETATION: B. Antrum biopsy: Negative for Helicobacter pylori organisms. SJ:isela 07/20/2020
[2020-07-19 08:20] VITALS: BP 111/78; BP 126/82; PULSE 74; RESP 18; TEMP 36.7; O2SAT 100
--- NOTE | 2020-07-19 08:21 | OP.CCLET_ITS ---
07/19/2020 Clyde Linda [address] [place] [address] Re : Upper GI endoscopy procedure for Jane Sharma Dear Dr. Linda This procedure was performed on Sunday, July 19, 2020. My impressions and recommendations are as follows: Impressions : - LA Grade B reflux esophagitis. Biopsied mid and distal esophagus. - Large hiatal hernia. Active reflux during the procedure requiring head of bed elevation to prevent aspiration - Erythematous mucosa in the antrum. Biopsied. - Erythematous duodenopathy. Recommendations : - Discharge patient to home. - Resume previous diet. - Continue present medications. - Use Prilosec (omeprazole) 20 mg PO daily. - Telephone my office for pathology results in 1 week. - Follow an antireflux regimen. My findings are described in the full procedure note, which is enclosed. If I can be of further assistance, please feel free to contact me at Doctor phone number(s): Work: . Sincerely, Elvis Feliz MD 07/19/2020 8:21:29 AM This report has been signed electronically.
--- NOTE | 2020-07-19 08:21 | OP.EGD_ITS ---
Patient Name: Jane Sharma Procedure Date: 07/19/2020 7:28 AM Date of : 1950 Age: 69 Procedure: Upper GI endoscopy Indications: Iron deficiency anemia Providers: Elvis Feliz MD Referring MD: Clyde Linda Medicines: See the Anesthesia note for documentation of the administered medications Complications: No immediate complications. Procedure: Pre-Anesthesia Assessment: - Prior to the procedure, a History and Physical was performed, and patient medications and allergies were reviewed. The patient's tolerance of previous anesthesia was also reviewed. The risks and benefits of the procedure and the sedation options and risks were discussed with the patient. All questions were answered, and informed consent was obtained. Prior Anticoagulants: The patient has taken Eliquis (apixaban), last dose was day of procedure. ASA Grade Assessment: III - A patient with severe systemic disease. After reviewing the risks and benefits, the patient was deemed in satisfactory condition to undergo the procedure. After obtaining informed consent, the endoscope was passed under direct vision. Throughout the procedure, the patient's blood pressure, pulse, and oxygen saturations were monitored continuously. The gastroscope was introduced through the mouth, and advanced to the second part of duodenum. The upper GI endoscopy was accomplished without difficulty. The patient tolerated the procedure well. Scope In: 7:47:17 AM Scope Out: 7:54:56 AM Total Procedure Duration Time 0 hours 7 minutes 39 seconds Findings: LA Grade B (one or more mucosal breaks greater than 5 mm, not extending between the tops of two mucosal folds) esophagitis with bleeding was found 25 to 35 cm from the incisors. Biopsies were taken with a cold forceps for histology. A large hiatal hernia was present. Diffuse mildly erythematous mucosa without bleeding was found in the gastric antrum. Biopsies were taken with a cold forceps for histology. Diffuse mildly erythematous mucosa without active bleeding and with no stigmata of bleeding was found in the duodenal bulb. Impression: - LA Grade B reflux esophagitis. Biopsied mid and distal esophagus. - Large hiatal hernia. Active reflux during the procedure requiring head of bed elevation to prevent aspiration - Erythematous mucosa in the antrum. Biopsied. - Erythematous duodenopathy. Recommendation: - Discharge patient to home. - Resume previous diet. - Continue present medications. - Use Prilosec (omeprazole) 20 mg PO daily. - Telephone my office for pathology results in 1 week. - Follow an antireflux regimen. Procedure Code(s): --- Professional --- 31741, Esophagogastroduodenoscopy, flexible, transoral; with biopsy, single or multiple Diagnosis Code(s): --- Professional --- K21.0, Gastro-esophageal reflux disease with esophagitis K44.9, Diaphragmatic hernia without obstruction or gangrene K31.89, Other diseases of stomach and duodenum D50.9, Iron deficiency anemia, unspecified CPT copyright 2017 [employer]. All rights reserved. The codes documented in this report are preliminary and upon youth support worker review may be revised to meet current compliance requirements. Elvis Feliz MD 07/19/2020 8:21:29 AM This report has been signed electronically. Number of Addenda: 0 Note Initiated On: 07/19/2020 7:28 AM
[2020-07-19 08:25] VITALS: BP 121/78; BP 126/82; PULSE 74; RESP 18; O2SAT 100
--- NOTE | 2020-07-19 08:28 | OP.CCLET_ITS ---
07/19/2020 Clyde Linda [address] [place] [address] Re : Colonoscopy procedure for Jane Sharma Dear Dr. Linda This procedure was performed on Sunday, July 19, 2020. My impressions and recommendations are as follows: Impressions : - Preparation of the colon was poor. Patient is elderly and frail. No large gross lesions or sources of bleeding identified Suspect esophagitis as source of GI related anemia and will treat medically with proton pump inhibitor. - Hemorrhoids found on perianal exam. - One 8 mm polyp in the mid transverse colon, removed with a hot snare. Resected and retrieved. - One 6 mm polyp in the mid transverse colon, removed with a cold biopsy forceps. Resected and retrieved. - Diverticulosis in the entire examined colon. Because of medical condition at this time I am not anticipating a repeat attempt at colonoscopy secondary to poor prep unless patient's future course indicates that this be performed. Recommendations : - Discharge patient to home. - Resume previous diet. - Continue present medications. - Telephone my office for pathology results in 1 week. - Repeat colonoscopy for surveillance based on pathology results and symptoms My findings are described in the full procedure note, which is enclosed. If I can be of further assistance, please feel free to contact me at Doctor phone number(s): Work: . Sincerely, Elvis Feliz MD 07/19/2020 8:27:55 AM This report has been signed electronically.
--- NOTE | 2020-07-19 08:28 | OP.COLON_ITS ---
Patient Name: Jane Sharma Procedure Date: 07/19/2020 7:56 AM Date of : 1950 Age: 69 Procedure: Colonoscopy Indications: Iron deficiency anemia Providers: Elvis Feliz MD Referring MD: Clyde Linda Medicines: See the Anesthesia note for documentation of the administered medications Patient Profile: Last Colonoscopy: none. The patient's first colonoscopy is today. Complications: No immediate complications. Procedure: Pre-Anesthesia Assessment: - Prior to the procedure, a History and Physical was performed, and patient medications and allergies were reviewed. The patient's tolerance of previous anesthesia was also reviewed. The risks and benefits of the procedure and the sedation options and risks were discussed with the patient. All questions were answered, and informed consent was obtained. Prior Anticoagulants: The patient has taken Eliquis (apixaban), last dose was day of procedure. ASA Grade Assessment: III - A patient with severe systemic disease. After reviewing the risks and benefits, the patient was deemed in satisfactory condition to undergo the procedure. After I obtained informed consent, the scope was passed under direct vision. Throughout the procedure, the patient's blood pressure, pulse, and oxygen saturations were monitored continuously. The Colonoscope was introduced through the anus and advanced to the cecum, identified by appendiceal orifice and ileocecal valve. The colonoscopy was somewhat difficult due to poor bowel prep. The patient tolerated the procedure well. The quality of the bowel preparation was poor. The ileocecal valve and the appendiceal orifice were photographed. Scope In: 7:58:34 AM Scope Withdrawal Time 0 hours 7 minutes 11 seconds Scope Out: 8:13:47 AM Total Procedure Duration Time 0 hours 15 minutes 13 seconds Findings: Hemorrhoids were found on perianal exam. A 8 mm polyp was found in the mid transverse colon. The polyp was sessile. The polyp was removed with a hot snare. Resection and retrieval were complete. A 6 mm polyp was found in the mid transverse colon. The polyp was sessile. The polyp was removed with a cold biopsy forceps. Resection and retrieval were complete. Multiple diverticula were found in the entire colon. Impression: - Preparation of the colon was poor. Patient is elderly and frail. No large gross lesions or sources of bleeding identified Suspect esophagitis as source of GI related anemia and will treat medically with proton pump inhibitor. - Hemorrhoids found on perianal exam. - One 8 mm polyp in the mid transverse colon, removed with a hot snare. Resected and retrieved. - One 6 mm polyp in the mid transverse colon, removed with a cold biopsy forceps. Resected and retrieved. - Diverticulosis in the entire examined colon. Because of medical condition at this time I am not anticipating a repeat attempt at colonoscopy secondary to poor prep unless patient's future course indicates that this be performed. Recommendation: - Discharge patient to home. - Resume previous diet. - Continue present medications. - Telephone my office for pathology results in 1 week. - Repeat colonoscopy for surveillance based on pathology results and symptoms Procedure Code(s): --- Professional --- 79106, Colonoscopy, flexible; with removal of tumor(s), polyp(s), or other lesion(s) by snare technique 67427, 59, Colonoscopy, flexible; with biopsy, single or multiple Diagnosis Code(s): --- Professional --- K64.9, Unspecified hemorrhoids D12.3, Benign neoplasm of transverse colon (hepatic flexure or splenic flexure) D50.9, Iron deficiency anemia, unspecified K57.30, Diverticulosis of large intestine without perforation or abscess without bleeding CPT copyright 2017 [employer]. All rights reserved. The codes documented in this report are preliminary and upon kindergarten classroom teacher review may be revised to meet current compliance requirements. Elvis Feliz MD 07/19/2020 8:27:55 AM This report has been signed electronically. Number of Addenda: 0 Note Initiated On: 07/19/2020 7:56 AM
[2020-07-19 08:30] VITALS: BP 118/77; BP 126/82; PULSE 76; RESP 18; O2SAT 100
[2020-07-19 08:35] VITALS: BP 126/82; BP 130/78; PULSE 75; RESP 18; TEMP 36.4; O2SAT 100
[2020-07-19 09:18] VITALS: BP 126/82
== END 2020-07-19 09:21 | disposition home or self-care (01) ==
LOC: EN 06:17 → AC 06:18
PROVIDERS: PCP Family Medicine; Referring Provider Family Medicine; Visit Provider Surgery
PROC: 0DJD8ZZ Inspection of Lower Intestinal Tract, Via Natural or Artificial Opening Endoscopic (ICD-10-PCS; CPT 45378; principal; 2020-07-19 07:25)
DX: K21.01 Gastro-esophageal reflux disease with esophagitis, with bleeding (principal); K29.50 Unspecified chronic gastritis without bleeding; K44.9 Diaphragmatic hernia without obstruction or gangrene; K31.89 Other diseases of stomach and duodenum; D12.3 Benign neoplasm of transverse colon; K64.9 Unspecified hemorrhoids; K57.30 Diverticulosis of large intestine without perforation or abscess without bleeding; D50.9 Iron deficiency anemia, unspecified; I82.563 Chronic embolism and thrombosis of calf muscular vein, bilateral; Z20.822 Contact with and (suspected) exposure to COVID-19; Z79.01 Long term (current) use of anticoagulants; Z79.899 Other long term (current) drug therapy; Z87.891 Personal history of nicotine dependence
CPT/HCPCS: 43239; 45380; 45385; 87426; 88305; 88342; C9803; J7120

== ENCOUNTER → 2020-08-09 14:18 | Outpatient (CLI) | payer BC, SELFPAY ==
[2020-07-19 06:48] VITALS: BMI 25.2
[2020-08-09 18:20] LABS: Absolute Lymphocyte Count 1.81 X10^3/uL (0.83-4.51); Absolute Neutrophil Count 4.3 X10^3/uL (2.0-7.7); Basophil# 0.06 X10^3/uL; Basophil% 0.9 % (0-1); Eosinophil# 0.11 X10^3/uL; Eosinophils% 1.6 % (0-5); Hematocrit 41.4 % (37-47); Hemoglobin 12.4 g/dL (12.0-15.0); Lymphocyte # 1.81 X10^3/ul (0.83-4.51); Lymphocyte % 26.3 % (19-41); Mean Corpuscular Hgb 25.9 pg (27.0-32.0); Mean Corpuscular Volume 86.4 fL (81-99); Mean Platelet Vol. 10.6 fl (6.2-12.0); Monocyte# 0.54 X10^3/uL; Monocyte% 7.8 % (0-10); NRBC Flagged by Analyzer 0 % (0-5); Neutrophil # 4.33 X10^3/uL (2.7-7.7); Platelet Count 577 K/mm3 (150-450); RBC Distribution Width CV 15.9 % (11.6-14.6); RBC Distribution Width SD 50.4 fl (35.1-43.9); Red Blood Count 4.79 M/mm3 (4.2-5.4); White Blood Count 6.9 K/mm3 (4.4-11.0)
[2020-08-09 18:43] LABS: Ferritin 102 ng/mL (8-252); Iron 31 ug/dL (50-170); Iron Binding Capacity,Total 316 ug/dL (250-450)
== END ==
PROVIDERS: PCP Family Medicine; Visit Provider Family Medicine
DX: D50.9 Iron deficiency anemia, unspecified (principal)
CPT/HCPCS: 36415; 82728; 83540; 83550; 85025

== ENCOUNTER 2020-09-22 12:30 | Outpatient (RCR) | payer BC, SELFPAY ==
--- NOTE | 2020-08-24 15:31 | HP.PTEVAL ---
Patient's Visit Information SUELLEN LONG is a 69 year old F referred to Physical Therapy by Dr. 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 Date of Evaluation: 08/24/20 Physical Therapist: Ryan Wooten, PT, Cert MDT, OCS - Visit Plan Frequency: 2x /Week Duration: 4 Weeks Plan: PT INTERVENTIONS POSTURAL EX'S,DLS ABD/BACK ,LE STRENGTHENING AND CERVICAL NEEDED AND MODALTIES FOR PAIN - Subjective This 69 y/o female presents to physical therapy with back and neck pain. Patient back pain is worse than neck . Patient has had back pain since 2020 due to blood bacterial infection and DVT at [facility] . Patient d/c o home Jun 14. Due to be hospitalized patient developed back pain from inactivity.Patient also has predisposing has had ankle brace due to old ankle fracture and started bacterialle. Seen Dr Brar recommend ankle brace on all times. Patient lumbar pain symptoms symmetrical Lumbar and occasional thighs . Patient has min neck pain.Denies parathesia /tingling. Bowel/bladder -. Coughing/sneezing-. Aggravating factors walking,bending . Alleviating factors rest ,sitting and heat. Patient neck pain worse with cervical rotation.Denies dizziness/tinnitus occasional SEVILLA. Patient had x-rays DDD,MRI cervical/lumbar/thoracic . Patient back pain affects QOL and function. SOCIAL: . VOCATION: [place] - Pain Bilateral Back Pain Intensity (Out of 10): 8 Pain Intensity Range: 10 Bilateral Neck Pain Intensity (Out of 10): 2 Pain Intensity Range: 10 - Objective POSTURE: asymmetries, mild forward posture,left pelvis higher,flat lumbar spine. GAIT: ambulates with antalgic gait leans to left. SYMMETRIES:right leg shorter. AROM BUE: WFL. MMT: BEU grossly 4/5. CERVICAL ROM: flexion min ,rotation /lateral flexion min loss,extension min loss. LUMBAR ROM: flexion mod/severe loss pain ,side glides right severe loss pain,left mod loss,extension severe loss. MMT: quads/hams/hip flexion 4-/5,hip abd 3+/5 ,ankle 4/5. FLEXABLITY: hams mild/mod tight. - Special Tests C/S Radiculapathy - Left Upper limb tension test: Negative C/S Radiculapathy - Right Upper limb tension test: Negative C/S Radiculapathy - Left Spurlings: Negative C/S Radiculapathy - Right Spurlings: Negative C/S Radiculapathy - Left Cervical distraction: Negative C/S Radiculapathy - Right Cervical distraction: Negative C/S Radiculapathy - Left Relief test: Negative C/S Radiculapathy - Right Relief test: Negative Sharp [place]: Negative Vertebral Artery Test: Negative Alar Ligament Test: Negative L/S Slump test left side: Negative L/S Slump test right side: Negative L/S Left Straight Leg Raise: Negative L/S Right Straight Leg Raise: Negative Lumbar Standing: Flexion - Mechanical Response: No effect Lumbar Standing: Flexion - Symptoms During Testing: Increases Lumbar Standing: Flexion - Symptoms After Testing: Worse Lumbar Standing: Extension - Mechanical Response: No effect Lumbar Standing: Extension - Symptoms During Testing: Increases Lumbar Standing: Extension - Symptoms After Testing: Worse Lumbar Standing: Right Side Glides - Mechanical Response: No effect Lumbar Standing: Right Side [place] - Symptoms During Testing: Increases Lumbar Standing: Right Side [place] - Symptoms After Testing: No worse Lumbar Standing: Left Side [place] - Mechanical Response: No effect Lumbar Standing: Left Side [place] - Symptoms During Testing: Increases Lumbar Standing: Left Side [place] - Symptoms After Testing: Worse - Goals Goal 1:: I with HEP Goal Time Frame: 4-6 Weeks Goal 2:: Patient to improve posture for ADLS' Goal Time Frame: 4-6 Weeks Goal 3:: Patient decrease LUMBAR pain by 50% or > to improve function and ADLS' Goal Time Frame: 4-6 Weeks Goal 4:: Patient to improve LUMBAR/CERVICAL ROM for function of recovery Goal Time Frame: 4-6 Weeks Goal 5:: Patient to improve BACK owestry score by 5 points or > to improve QOL. Goal Time Frame: 4-6 Weeks Goal 6:: Ambulate with improved quality of gait with less pain 60% of the time. Goal Time Frame: 4-6 Weeks - Rehabilitation Potential Physical Therapy Diagnosis: This patient has multiple complexity issues along lumbar pain with severe loss of ROM ,weakness ,right leg shorter ,asymmetries impairs walking and standing and unable to return to work thus will benifit from skilled PT Rehabilitation Potential: Good - Anticipated Interventions Patient/Client Instruction: Educate patient on: Condition, Plan of Care For the Purpose of:: To decrease pain, To increase ROM, To improve muscle performance and motor function, To improve ability to perform ADL's, To increase tolerance to activity/condition/position, To improve performance and independence with ADL's, To decrease level of supervision to perform tasks, To improve gait and locomotor functions, To improve health of tissue, To decrease soft tissue restriction, To increase flexibility/ROM, To assume or resume ADL's, To reduce risk of recurrence Therapeutic Exercise to Include: Strength training, Postural training, Flexibilty training, Active ROM, Dynamic Lumbar Stabilization Comment: BLE For the Purpose of:: To decrease pain, To increase ROM, To improve muscle performance and motor function, To improve ability to perform ADL's, To increase tolerance to activity/condition/position, To improve performance and independence with ADL's, To improve ability of physical actions for home/community/work/leisure, To improve health of tissue, To decrease soft tissue restriction, To increase flexibility/ROM, To assume or resume ADL's, To reduce risk of recurrence TENS: Yes IF ES: Yes Cryotherapy (ice pack, ice massage): Yes Thermo therapy (hot pack): Yes Ultrasound (thermal/non thermal): Yes For the Purpose of:: To decrease pain, To increase ROM, To improve health of tissue, To decrease soft tissue restriction, To increase flexibility/ROM Thank you for the opportunity to evaluate your patient. For Medicare and Medicare HMO plans, please review the plan of care and approve it. It will need to be FAXED BACK to us at [phone] for Medicare purposes. For Medicare only, by signing this I certify the plan of care. Please let me know if there are questions or concerns regarding this plan of care. Physician Signature: Date:
--- NOTE | 2021-01-26 16:56 | HP.PTDCSUM ---
It has been my pleasure to treat SUELLEN LONG referred by Dr. 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 Discharge Date: Please see the following information for a summary of their discharge status. Subjective: Doing okay .. ex's help Bilateral Back Pain Intensity (Out of 10): 2 Bilateral Neck Pain Intensity (Out of 10): 0 % Improvement: 75 Objective/Function: JACKY TX WELL PROGRESSING WITH GOALS. MMT: quads/hams 4/5,hip 4/5. LUMBAR FELXION MOD LOSS ,EXTENSION MOD/SEVERE LOSS Goal 1:: I with HEP Goal 2:: Patient to improve posture for ADLS' Goal 3:: Patient decrease LUMBAR pain by 50% or > to improve function and ADLS' Goal 4:: Patient to improve LUMBAR/CERVICAL ROM for function of recovery Goal 5:: Patient to improve BACK owestry score by 5 points or > to improve QOL. Goal 6:: Ambulate with improved quality of gait with less pain 60% of the time. Plan: RTD If there are questions or concerns regarding this patient's physical therapy, please feel free to call me at [phone]. Thank you for the referral of this patient. Sincerely, Ryan Wooten PT, Cert MDT, OCS Balance/Gait/Functional tests - Balance/Special Test Scores Oswestry Low Back Score: 10
== END 2020-09-22 19:00 | disposition home or self-care (01) ==
LOC: PT 12:30
PROVIDERS: PCP Family Medicine; Referring Provider Family Medicine; Visit Provider Family Medicine
DX: M50.30 Other cervical disc degeneration, unspecified cervical region (principal); M51.36 Other intervertebral disc degeneration, lumbar region; M47.9 Spondylosis, unspecified; M21.70 Unequal limb length (acquired), unspecified site
CPT/HCPCS: 97110; 97162

== ENCOUNTER → 2020-10-04 14:20 | Outpatient (CLI) | payer BC, SELFPAY ==
[2020-10-04 17:51] LABS: Absolute Lymphocyte Count 2.19 X10^3/uL (0.83-4.51); Absolute Neutrophil Count 3.2 X10^3/uL (2.0-7.7); Basophil# 0.06 X10^3/uL; Eosinophil# 0.14 X10^3/uL; Eosinophils% 2.3 % (0-5); Hematocrit 39.6 % (37-47); Hemoglobin 12.2 g/dL (12.0-15.0); Lymphocyte # 2.19 X10^3/ul (0.83-4.51); Lymphocyte % 36.6 % (19-41); Mean Corp Hgb Conc 30.8 g/dL (32-36); Mean Corpuscular Hgb 26.3 pg (27.0-32.0); Mean Corpuscular Volume 85.3 fL (81-99); Mean Platelet Vol. 11.3 fl (6.2-12.0); Monocyte# 0.34 X10^3/uL; Monocyte% 5.7 % (0-10); NRBC Flagged by Analyzer 0 % (0-5); Neutrophil # 3.24 X10^3/uL (2.7-7.7); Neutrophil % 54.2 % (47-70); Platelet Count 391 K/mm3 (150-450); RBC Distribution Width CV 15.5 % (11.6-14.6); RBC Distribution Width SD 47.9 fl (35.1-43.9); Red Blood Count 4.64 M/mm3 (4.2-5.4)
[2020-10-04 18:23] LABS: Ferritin 40 ng/mL (8-252); Iron 33 ug/dL (50-170); Iron Binding Capacity,Total 323 ug/dL (250-450)
== END ==
PROVIDERS: PCP Family Medicine; Referring Provider Family Medicine; Visit Provider Family Medicine
DX: D50.9 Iron deficiency anemia, unspecified (principal)
CPT/HCPCS: 36415; 82728; 83540; 83550; 85025

== ENCOUNTER → 2020-10-14 12:56 | Outpatient (CLI) | payer BC, SELFPAY ==
[2020-10-14 13:12] LABS: Hematocrit 40.7 % (37-47); Hemoglobin 12.7 g/dL (12.0-15.0)
== END ==
PROVIDERS: PCP Family Medicine; Referring Provider Surgery; Visit Provider Surgery
DX: D64.9 Anemia, unspecified (principal)
CPT/HCPCS: 36415; 85014; 85018

== ENCOUNTER → 2020-10-28 | Outpatient (CLI) | payer BC, SELFPAY | END | disposition home or self-care (01) | LOC: LABSPEC 14:08 | PROVIDERS: PCP Family Medicine; Visit Provider Surgery | DX: D64.9 Anemia, unspecified (principal) | CPT/HCPCS: 36415; 82274 ==

== ENCOUNTER → 2020-11-07 15:05 | Outpatient (CLI) | payer BC, SELFPAY ==
[2020-11-07 15:38] LABS: Hematocrit 40.3 % (37-47); Hemoglobin 12.6 g/dL (12.0-15.0); Mean Corp Hgb Conc 31.3 g/dL (32-36); Mean Corpuscular Hgb 26.7 pg (27.0-32.0); Mean Corpuscular Volume 85.4 fL (81-99); Mean Platelet Vol. 10.3 fl (6.2-12.0); Platelet Count 310 K/mm3 (150-450); RBC Distribution Width CV 15.9 % (11.6-14.6); RBC Distribution Width SD 49.5 fl (35.1-43.9); Red Blood Count 4.72 M/mm3 (4.2-5.4); White Blood Count 8.2 K/mm3 (4.4-11.0)
== END ==
PROVIDERS: PCP Family Medicine; Referring Provider Surgery; Visit Provider Surgery
DX: D64.9 Anemia, unspecified (principal)
CPT/HCPCS: 36415; 85027

== ENCOUNTER → 2021-10-09 | Outpatient (CLI) | payer MEDICARE, SELFPAY ==
[2021-10-09 17:31] LABS: Absolute Lymphocyte Count 2.07 X10^3/uL (0.83-4.51); Absolute Neutrophil Count 3.1 X10^3/uL (2.0-7.7); Basophil# 0.06 X10^3/uL; Eosinophil# 0.14 X10^3/uL; Eosinophils% 2.4 % (0-5); Hematocrit 41.4 % (37-47); Hemoglobin 13.4 g/dL (12.0-15.0); Lymphocyte # 2.07 X10^3/ul (0.83-4.51); Lymphocyte % 35.4 % (19-41); Mean Corp Hgb Conc 32.4 g/dL (32-36); Mean Corpuscular Hgb 29.3 pg (27.0-32.0); Mean Corpuscular Volume 90.4 fL (81-99); Mean Platelet Vol. 11.3 fl (6.2-12.0); Monocyte# 0.46 X10^3/uL; Monocyte% 7.9 % (0-10); NRBC Flagged by Analyzer 0 % (0-5); Platelet Count 317 K/mm3 (150-450); RBC Distribution Width CV 13.7 % (11.6-14.6); RBC Distribution Width SD 45.5 fl (35.1-43.9); Red Blood Count 4.58 M/mm3 (4.2-5.4); White Blood Count 5.9 K/mm3 (4.4-11.0)
[2021-10-09 18:24] LABS: ALB/GLOB Ratio 0.9 RATIO (0.9-2.4); AST(SGOT) 24 U/L (15-37); Alanine Aminotransfer ALT/SGPT 30 U/L (13-56); Albumin, Serum 3.7 g/dL (3.2-5.0); Alkaline Phosphatase 88 U/L (45-117); Anion Gap 7 (5-15); BUN 16 mg/dL (7-18); BUN/Creat Ratio 22.8 RATIO (10-20); Calcium,Total 9.3 mg/dL (8.5-10.1); Chloride 111 mmol/L (98-107); EST Glomerular Filtration Rate 87 mL/min (>60); Est Glom Filt Rate - Afr Amer 106 mL/min (>60); Ferritin 50 ng/mL (8-252); Glucose 79 mg/dL (74-106); Iron 43 ug/dL (50-170); Iron Binding Capacity,Total 337 ug/dL (250-450); Potassium 3.6 mmol/L (3.5-5.1); Protein, Total 7.7 g/dL (6.4-8.2); Sodium Level 143 mmol/L (136-145)
[2021-10-09 22:34] LABS: Vitamin B12 298 pg/mL (211-911)
== END | disposition home or self-care (01) ==
LOC: MFPLAB 14:43
PROVIDERS: PCP Family Medicine; Visit Provider Family Medicine
DX: D50.9 Iron deficiency anemia, unspecified (principal); K21.9 Gastro-esophageal reflux disease without esophagitis
CPT/HCPCS: 36415; 80053; 82607; 82728; 82746; 83540; 83550; 85025

== ENCOUNTER → 2021-12-12 | Outpatient (CLI) | payer MEDICARE, SELFPAY ==
[2021-12-12 18:27] LABS: Ferritin 59 ng/mL (8-252); Iron 77 ug/dL (50-170); Iron Binding Capacity,Total 319 ug/dL (250-450)
== END | disposition home or self-care (01) ==
LOC: MFPLAB 14:30
PROVIDERS: PCP Family Medicine; Visit Provider Family Medicine
DX: D50.9 Iron deficiency anemia, unspecified (principal)
CPT/HCPCS: 36415; 82728; 83540; 83550

== ENCOUNTER → 2022-02-01 | Outpatient (CLI) | payer MEDICARE, SELFPAY ==
--- NOTE | 2022-02-01 15:29 | BI_ITS ---
MAMMOGRAPHY - BILATERAL SCREENING REASON FOR EXAM: Female, 71 years old. Routine annual screening examination. PERTINENT HISTORY: Non-contributory. TECHNIQUE: Digital bilateral breast ramirez (3D mammographic acquisition) in the CC and MLO projections. 2-D mediolateral oblique (MLO) and craniocaudad (CC) views of both breasts were obtained. CAD: Full Field Digital Mammography with Computer Added Detection was performed. COMPARISON: No comparison mammograms available at this time. If any prior films become available, an addendum to this report can be generated. FINDINGS: Breast Composition: The breasts are heterogeneously dense, which may obscure small masses. There are no dominant masses or suspicious calcifications. No other significant abnormalities are identified. BI/SCRN MAMM (CAD)W/RAMIREZ BILAT IMPRESSION: Negative screening mammogram. Yearly followup mammogram recommended. (A) ASSESSMENT CATEGORY: BIRADS Category 1: Negative. A letter regarding these results will be sent to the patient by the facility within 30 days. Approximately 10% of breast cancers are not detected by mammography. A normal mammogram should not delay biopsy of a clinically suspicious abnormality. [id number] Electronically Signed: Doroteo Diaz MD at 12:34 EDT ,
--- NOTE | 2022-02-01 15:34 | BD_ITS ---
STUDY: DUAL ENERGY X-RAY ABSORPTIOMETRY / DXA REASON FOR EXAM: Female, 71 years old. [id number] TECHNIQUE: Bone Mineral Density (BMD) measurements of lumbar spine and bilateral hips were obtained. COMPARISON: None. FINDINGS: Lumbar Spine (L1-L4): g/cm2 (0.789) / T-score (-2.8) / Z-score (-0.5) Findings are suggestive of osteoporosis with a high fracture risk. Left Femur Total: g/cm2 (0.810) / T-score (-1.1) / Z-score (0.5) Left Femoral Neck: g/cm2 (0.695) / T-score (-1.4) / Z-score (0.5) Right Femur Total: g/cm2 (0.690) / T-score (-2.1) / Z-score (-0.4) Right Femoral Neck: g/cm2 (0.570) / T-score (-2.5) / Z-score (-0.6) BD/Dexa Bone Density Study IMPRESSION: The patient is considered osteoporotic as outlined below according to World Lane Organization (WHO) criteria with a high fracture risk. Reference Information: The T-score is the number of standard deviations above or below the standard which is normal for young adults at their peak bone mineral density. The World Health Organization (WHO) interprets the T-scores as follows: Above -1 Normal bone density Between -1 and -2.5 Osteopenia Equal to / or below -2.5 Osteoporosis As a practical clinical guideline, osteopenia may be graded as follows: Mild -1 through -1.5 Moderate -1.6 through -2.0 Severe -2.1 through -2.4 The Z-score is the number of standard deviations above or below age-matched controls. A Z-score of less than -1.5 would be considered abnormal. References: 1. NIH Osteoporosis and Related Bone Diseases www osteo.org 2. International Society for Clinical Densitometry www iscd.org 3. National Osteoporosis Foundation www nof.org Electronically Signed: Doroteo Diaz MD at 9:15 EDT ,
== END | disposition home or self-care (01) ==
LOC: OPBD 15:27
PROVIDERS: PCP Family Medicine; Visit Provider Family Medicine
DX: Z12.31 Encounter for screening mammogram for malignant neoplasm of breast (principal); M85.80 Other specified disorders of bone density and structure, unspecified site; M81.0 Age-related osteoporosis without current pathological fracture; Z78.0 Asymptomatic menopausal state
CPT/HCPCS: 77063; 77067; 77080

== ENCOUNTER → 2022-02-21 | Outpatient (CLI) | payer MEDICARE, MEDICAID, SELFPAY ==
[2022-02-21 10:56] LABS: Vitamin D,25 Hydroxy 14.6 ng/mL
[2022-02-21 11:08] LABS: ALB/GLOB Ratio 0.9 RATIO (0.9-2.4); AST(SGOT) 18 U/L (15-37); Alanine Aminotransfer ALT/SGPT 20 U/L (13-56); Albumin, Serum 3.6 g/dL (3.2-5.0); Alkaline Phosphatase 82 U/L (45-117); Anion Gap 6 (5-15); BUN 16 mg/dL (7-18); BUN/Creat Ratio 25.8 RATIO (10-20); Chloride 111 mmol/L (98-107); Creatinine, Serum 0.62 mg/dL (0.55-1.02); EST Glomerular Filtration Rate 101 mL/min (>60); Est Glom Filt Rate - Afr Amer 122 mL/min (>60); Globulin 3.8 g/dL (2.2-4.2); Glucose 82 mg/dL (74-106); Potassium 3.8 mmol/L (3.5-5.1); Protein, Total 7.4 g/dL (6.4-8.2); Sodium Level 141 mmol/L (136-145)
== END | disposition home or self-care (01) ==
LOC: MFPLAB 09:13
PROVIDERS: PCP Family Medicine; Referring Provider Family Medicine; Visit Provider Family Medicine
DX: M81.0 Age-related osteoporosis without current pathological fracture (principal)
CPT/HCPCS: 36415; 80053; 82306

== ENCOUNTER → 2022-07-03 | Outpatient (CLI) | payer MEDICARE, MEDICAID, SELFPAY ==
[2022-07-03 17:41] LABS: Absolute Lymphocyte Count 1.82 X10^3/uL (0.83-4.51); Absolute Neutrophil Count 3.5 X10^3/uL (2.0-7.7); Basophil# 0.06 X10^3/uL; Eosinophils% 1.7 % (0-5); Hematocrit 41.4 % (37-47); Lymphocyte # 1.82 X10^3/ul (0.83-4.51); Lymphocyte % 30.8 % (19-41); Mean Corp Hgb Conc 31.4 g/dL (32-36); Mean Corpuscular Hgb 28.4 pg (27.0-32.0); Mean Corpuscular Volume 90.6 fL (81-99); Monocyte# 0.41 X10^3/uL; Monocyte% 6.9 % (0-10); NRBC Flagged by Analyzer 0 % (0-5); Neutrophil % 59.4 % (47-70); Platelet Count 341 K/mm3 (150-450); RBC Distribution Width CV 14.8 % (11.6-14.6); RBC Distribution Width SD 49.3 fl (35.1-43.9); Red Blood Count 4.57 M/mm3 (4.2-5.4); White Blood Count 5.9 K/mm3 (4.4-11.0)
[2022-07-03 18:45] LABS: Vitamin B12 310 pg/mL (211-911)
[2022-07-03 19:23] LABS: AST(SGOT) 20 U/L (15-37); Alanine Aminotransfer ALT/SGPT 26 U/L (13-56); Albumin, Serum 3.8 g/dL (3.2-5.0); Alkaline Phosphatase 72 U/L (45-117); Anion Gap 8 (5-15); BUN 27 mg/dL (7-18); BUN/Creat Ratio 39.9 RATIO (10-20); Calcium,Total 8.9 mg/dL (8.5-10.1); Chloride 109 mmol/L (98-107); Creatinine, Serum 0.68 mg/dL (0.55-1.02); EST Glomerular Filtration Rate 91 mL/min (>60); Est Glom Filt Rate - Afr Amer 110 mL/min (>60); Ferritin 49 ng/mL (8-252); Glucose 83 mg/dL (74-106); Iron 67 ug/dL (50-170); Iron Binding Capacity,Total 337 ug/dL (250-450); Potassium 4.2 mmol/L (3.5-5.1); Protein, Total 7.8 g/dL (6.4-8.2); Sodium Level 141 mmol/L (136-145)
== END | disposition home or self-care (01) ==
LOC: MFPLAB 14:01
PROVIDERS: PCP Family Medicine; Visit Provider Family Medicine
DX: D64.9 Anemia, unspecified (principal); M81.0 Age-related osteoporosis without current pathological fracture
CPT/HCPCS: 36415; 80053; 82306; 82607; 82728; 82746; 83540; 83550; 85025

== ENCOUNTER → 2023-02-04 | Outpatient (CLI) | payer MEDICARE, SELFPAY ==
--- NOTE | 2023-02-04 10:57 | BI_ITS ---
MAMMOGRAPHY - BILATERAL SCREENING 3-D TOMOSYNTHESIS REASON FOR EXAM: Female, 72 years old. screening PERTINENT HISTORY: No significant family history. TECHNIQUE: 2-D mammograms and 3-D Tomosynthesis of the breast (s) were performed. CAD was performed. COMPARISON: 02/01/2022 FINDINGS: The breast composition is heterogeneously dense that can obscure small breast masses. Scattered benign calcifications are seen. No dense spiculated masses or suspicious microcalcifications are identified. No architectural distortion is identified. There is no skin thickening or retraction. There has been no significant change since the prior study. Bilateral benign vascular calcifications can be associated with coronary artery disease. BI/SCRN MAMM (CAD)W/RAMIREZ BILAT IMPRESSION: No mammographic signs of malignancy. Routine yearly mammograms recommended. ASSESSMENT CATEGORY: BIRADS Category 2: Benign. A letter regarding these results will be sent to the patient by the facility within 30 days. FOLLOW UP RECOMMENDATION: Yearly follow up mammogram recommended. (A) Approximately 10% of breast cancers are not detected by mammography. A normal mammogram should not delay biopsy of a clinically suspicious abnormality. Electronically Signed: Cooper España MD at 13:55 EDT ,
== END | disposition home or self-care (01) ==
LOC: OPBI 10:56
PROVIDERS: PCP Family Medicine; Referring Provider Family Medicine; Visit Provider Family Medicine
DX: Z12.31 Encounter for screening mammogram for malignant neoplasm of breast (principal)
CPT/HCPCS: 77063; 77067

== ENCOUNTER → 2023-07-09 | Outpatient (CLI) | payer MEDICARE, SELFPAY ==
[2023-07-09 15:42] LABS: Absolute Lymphocyte Count 2.14 X10^3/uL (0.83-4.51); Absolute Neutrophil Count 3.8 X10^3/uL (2.0-7.7); Basophil# 0.06 X10^3/uL; Basophil% 0.9 % (0-1); Eosinophils% 1.5 % (0-5); Hematocrit 42.1 % (37-47); Hemoglobin 13.5 g/dL (12.0-15.0); Lymphocyte # 2.14 X10^3/ul (0.83-4.51); Lymphocyte % 32.9 % (19-41); Mean Corp Hgb Conc 32.1 g/dL (32-36); Mean Corpuscular Volume 90.3 fL (81-99); Mean Platelet Vol. 11.1 fl (6.2-12.0); Monocyte% 6.2 % (0-10); NRBC Flagged by Analyzer 0 % (0-5); Neutrophil # 3.79 X10^3/uL (2.7-7.7); Neutrophil % 58.3 % (47-70); Platelet Count 283 K/mm3 (150-450); RBC Distribution Width CV 13.9 % (11.6-14.6); RBC Distribution Width SD 46.3 fl (35.1-43.9); Red Blood Count 4.66 M/mm3 (4.2-5.4); White Blood Count 6.5 K/mm3 (4.4-11.0)
[2023-07-09 16:18] LABS: Vitamin D,25 Hydroxy 34.8 ng/mL
[2023-07-09 16:45] LABS: AST(SGOT) 21 U/L (15-37); Alanine Aminotransfer ALT/SGPT 22 U/L (13-56); Albumin, Serum 3.8 g/dL (3.2-5.0); Alkaline Phosphatase 60 U/L (45-117); Anion Gap 8 (5-15); BUN 15 mg/dL (7-18); BUN/Creat Ratio 21.4 RATIO (10-20); Calcium,Total 9.2 mg/dL (8.5-10.1); Chloride 106 mmol/L (98-107); EST Glomerular Filtration Rate 87 mL/min (>60); Est Glom Filt Rate - Afr Amer 105 mL/min (>60); Globulin 3.9 g/dL (2.2-4.2); Glucose 80 mg/dL (74-106); Potassium 3.8 mmol/L (3.5-5.1); Protein, Total 7.7 g/dL (6.4-8.2); Sodium Level 140 mmol/L (136-145); Thyroid Stim Hormone (TSH) 0.87 uIU/mL (0.358-3.74)
== END | disposition home or self-care (01) ==
LOC: MFPLAB 13:45
PROVIDERS: PCP Family Medicine; Visit Provider Family Medicine
DX: M81.0 Age-related osteoporosis without current pathological fracture (principal); E55.9 Vitamin D deficiency, unspecified; K21.9 Gastro-esophageal reflux disease without esophagitis
CPT/HCPCS: 36415; 80053; 82306; 84443; 85025

== ENCOUNTER 2023-09-17 08:08 | Day surgery (SDC) | payer MEDICARE, MEDICAID, SELFPAY ==
[2023-09-17 08:34] VITALS: BP 161/86; PULSE 78; RESP 16; TEMP 36.6; O2SAT 100; BMI 27.3
[2023-09-17] MEDS: Lactated Ringers 1,000 ML 15 ML IV (08:42)
--- NOTE | 2023-09-17 09:13 | PCM.HP.BLA ---
History and Physical Date of Admission: 09/17/23 Visit Reasons: Gastroesophageal reflux disease (GERD) Chief Complaint: GERD Is patient in pain?: No Allergies No Known Allergies Allergy (Verified 08/12/23 14:25) Medications baclofen 10 mg tablet 10 mg PO TID PRN PRN Muscle Spasm #30 TABLETS 06/10/20 [Rx Confirmed 08/12/23] cyclobenzaprine 10 mg tablet 10 mg PO PRN PRN muscle spasms 07/14/20 [History Confirmed 08/12/23] omeprazole 20 mg delayed release,disintegrating tablet 20 mg PO DAILY ##90 07/19/20 [Rx Confirmed 08/12/23] alendronate 70 mg tablet (Fosamax) 70 mg PO QWEEK 08/12/23 [History Confirmed 08/12/23] calcium carbonate (Calcium 600) 600 mg PO DAILY 08/12/23 [History Confirmed 08/12/23] cholecalciferol (vitamin D3) 125 mcg (5,000 unit) capsule 125 mcg PO DAILY 08/12/23 [History Confirmed 08/12/23] PFS Medical History (Updated 08/12/23 @ 05:[address] Elvis Feliz MD) Acute right ankle pain Anemia Anemia Avascular necrosis of bone of ankle Bacteremia due to methicillin susceptible Staphylococcus aureus (MSSA) Debility DVT, bilateral lower limbs Fracture of talus of right ankle, closed Inability to ambulate due to right ankle or foot Septic arthritis of right ankle Urinary tract infection Surgical History History of ectopic Hx of bladder repair surgery Hx of lithotripsy Hx of tonsillectomy Family History Father HypertensionMother CVA (cerebral vascular accident) Social History Smoking Status: Former smoker second hand exposure: No alcohol intake: never substance use type: does not use caffeine: Yes what type of physical activity do you participate in: none frequency: does not exercise HPI HPI HPI: 72-year-old female was referred by Dr Clyde Linda for evaluation of gastroesophageal reflux disease and a written copy my surgical consult recommendations will return to him. She notes symptoms of throat burning and sour brash. Since his regurgitation. She had previous history of reflux esophagitis and large hiatal hernia. I had seen her in the office previously July 06, 2020 regarding anemia. She had been taking Advil at that time. Her hemoglobin was 9.3 and hematocrit of 30.7 with a low iron level. Because of DVT she was on Eliquis therapy at that time. On July 19, 2020 I assisted her with her combined upper and lower endoscopy. The upper endoscopy demonstrated grade B reflux esophagitis with a large hiatal hernia. Prilosec therapy was initiated. She had a colonoscopy at that time suggesting the bowel prep was poor. No gross lesions could be identified. The patient was not in good health at that time so elected not to pursue a repeat bowel prep. Pathology from biopsy showed focal gastric metaplasia of the duodenum and chronic gastritis with focal changes of reflux esophagitis. Tubular adenoma of the transverse colon x 2. H. pylori was negative. As of July 09, 2023 white blood cell count of 6.5 with a hemoglobin 13.5 hematocrit 42.1 platelet count of 283,000. BUN is 15 and creatinine 0.7. Liver function tests are normal. The patient is completely medication dependent. She does have breakthrough reflux symptoms. She is much healthier than when I last saw her. She is bright alert comfortable. She is no longer on iron therapy. Her anemia has resolved. ROS General General: No weight change, appetite, fatigue, colon cancer, breast cancer or weakness HEENT HEENT: No difficulty swallowing, eye injury, eye surgery, swollen glands or hoarseness Endo Endocrine: No thyroid disease, diabetes mellitus, thyroid cancer, Hair loss, heat intolerance or cold intolerance Skin Skin: No rash or changing moles Musc Musculoskeletal: Yes back problems and arthritis; No rheumatoid arthritis, gout or joint pain Cardio Cardiovascular: No murmur, pacemaker, heart disease, atrial fibrillation, high blood pressure, heart attack, heart stent, palpitations, shortness of breat with exertion or chest pain Psych Psychiatric: No depression, anxiety or hearing voices Resp Respiratory: No shortness of breath, No sleep apnea, No cough, No COPD, No asthma, No emphysema and No wheezing Gastro Gastrointestinal: No abdominal pain, No nausea or vomiting, No diarrhea, No constipation, No blood in stool, Yes acid reflux, No hemorrhoids, No ulcers, No gallbladder problem and No black,tarry stools Ryne Hematologic: No blood thinners, No blood disorders, No bleeding, No anemia and No blood clots Neuro Neurologic: No system reviewed and no additional complaints, except as documented, No as per HPI, No abnormal gait, No abnormal hearing, No abnormal movements, No abnormal speech, No behavioral changes, No burning sensations, No confusion, No convulsions, No disequilibrium, No dizziness, No localized weakness, No frequent falls, No headache(s), No lack of coordination, No loss of vision, No memory loss, No numbness, No other visual disturbances, No radicular pain, No restless legs, No sensory deficit, No syncope, No tingling, No tremor(s), No weakness and No other Exam Const General: cooperative, healthy appearing, comfortable and no acute distress [facility] Head: normal to inspection Eyes General: appearance normal, both eyes and all related structures Neck Neck: normal visual inspection Resp Effort & Inspection: normal respiratory effort Auscultation: clear to auscultation bilaterally Cardio Rate: regular rate Rhythm: regular rhythm GI Palpation: soft and no hepatosplenomegaly Musc Cervical Spine: normal cervical lordosis Skin General: no rashes or lesions noted Neuro General: patient alert, patient awake and patient oriented x3 Extrem General: no calf tenderness Other: Mild lower extremity swelling. Some deformity of the right ankle Psych Appearance: grossly normal Assessment and Plan Assessment and Plan (1) Gastroesophageal reflux disease: Qualifiers: Esophagitis bleeding: unspecified whether hemorrhage Esophagitis presence: with esophagitis Qualified Code(s): K21.00 - Gastro-esophageal reflux disease with esophagitis, without bleeding (2) Personal history of colonic polyps: Status: Acute Plan: I am recommending to the patient that we pursue a combined esophagogastroduodenoscopy with possible biopsy and colonoscopy with possible biopsy or polypectomy as indicated. She is medication dependent for her reflux disease and her general health has dramatically improved from her previous visit with me June 2020. She is not on any anticoagulant. Her previous colonoscopy on the same date however was a very poor bowel prep. We did remove some benign colonic polyps. I am recommending to her that we pursue a colonoscopy at this time as well. We will need to provide a slightly more aggressive bowel prep. She is aware of technique, benefit, risk, alternatives. I appreciate the ongoing opportunity of assisting with her surgical care Copy: Dr Clyde Feliz M.D., F.A.C.S. I have examined the patient and the H&P has been reviewed. There are no clinical changes since date of exam. Elvis Feliz M.D., F.A.C.S.
--- NOTE | 2023-09-17 09:15 | COLBX_PTH ---
PATIENT: SUELLEN LONG LOC: EN U#:[id number] AGE/SX: 72/F ROOM: RE09/17/[address]: Dr. Elvis Feliz MD : 1950 BED: DIS: 09/17/2023 SPEC #: [id number] RECD: 09/17/23 12:46 STATUS: JAMEY WINSTON #: [id number] MEAGHAN: 09/17/23 09:[address]: Elvis Feliz DEPT: SURGICAL PATHOLOGY RECD BY: Lupis Bedoya ENTERED: 09/17/23 13:27 SP TYPE: COLON BX OTHR DR: Dr. Clyde Linda MD Tissues: A - Gastric mucous membrane B - Stomach, NOS C - Stomach, NOS D - Esophagus, NOS E - Esophagus, NOS Procedures: Special Stain Group I Surgery Specimen Level IV Alcian Blue/PAS (control) HEADER OPERATION: Colonoscopy, aborted, EGD with biopsies PRE-OP DIAGNOSIS: Gastroesophageal reflux disease, Personal history of colonic polyps TISSUE SUBMITTED: A- Antrum biopsy, B- Greater curvature biopsy, C- Lesser curvature biopsy, D- Distal esophagus biopsy, E- Esophagus biopsy MICROSCOPIC DIAGNOSIS A. Gastric antrum, biopsy: Chronic gastritis. B. Stomach, greater curvature, biopsy: Mild chronic gastritis. C. Stomach, lesser curvature, biopsy: Mild chronic gastritis. D. Distal esophagus, biopsy: Gastroesophageal junctional mucosa with mild chronic inflammation. 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 No evidence of goblet cell metaplasia. See comment. E. Esophagus, biopsy: Fragments of benign squamous mucosa. No evidence of inflammation. AM/mr 09/18/2023 COMMENT A. The results of immunohistochemistry for Helicobacter pylori will be reported separately ([id number]). D. Alcian blue/PAS stain with matched control supports the above diagnosis. Immunohistochemistry ([id number]) supports the above diagnosis. MICROSCOPIC DESCRIPTION Slides are reviewed. GROSS DESCRIPTION A. Received in fixative is one container labeled with the patient's name and designated Antrum biopsy. The specimen consists of one irregular fragment of light lee soft tissue that measures 0.5 x 0.3 x 0.1 cm. The specimen is totally submitted in one cassette. B. Received in fixative is one container labeled with the patient's name and designated Greater curvature biopsy. The specimen consists of one irregular fragment of light lee soft tissue that measures 0.3 x 0.3 x 0.1 cm. The specimen is totally submitted in one cassette. C. Received in fixative is one container labeled with the patient's name and designated Lesser curvature biopsy. The specimen consists of one irregular fragment of light lee soft tissue that measures 0.3 x 0.3 x 0.1 cm. The specimen is totally submitted in one cassette. D. Received in fixative is one container labeled with the patient's name and designated Distal esophagus biopsy. The specimen consists of one irregular fragment of light lee soft tissue that measures 0.5 x 0.2 x 0.1 cm. The specimen is totally submitted in one cassette. E. Received in fixative is one container labeled with the patient's name and designated Mid esophagus biopsy. The specimen consists of one irregular fragment of light lee soft tissue that measures 0.5 x 0.3 x <0.1 cm. The specimen is totally submitted in one cassette. JB/ 09/17/2023 TC:3 CPT:33469q0,11175
--- NOTE | 2023-09-17 09:15 | IMM_PTH ---
PATIENT: SUELLEN LONG LOC: EN U#:[id number] AGE/SX: 72/F ROOM: RE09/17/[address]: Dr. Elvis Feliz MD : 1950 BED: DIS: 09/17/2023 SPEC #: [id number] RECD: 09/17/23 14:17 STATUS: JAMEY RESteve #: [id number] MEAGHAN: 09/17/23 09:[address]: Elvis Feliz DEPT: IMMUNOHISTOCHEMISTRY RECD BY: Alexandre Nicole ENTERED: 09/17/23 14:17 SP TYPE: IMMUNO OTHR DR: Dr. Clyde Linda MD Tissues: A - Gastric mucous membrane D - Esophagus, NOS Procedures: H Pylori (initial) P53 (initial) KI-67 (add) PHYSICIAN & INSTITUTION [place] [address] SPECIMEN INFORMATION: Tissue Source: A- Gastric antrum biopsy, D- Distal esophagus biopsy Clinical Info: Gastroesophageal reflux disease, personal history of colonic polyps Specimen Number: [id number] A, D CPT code: [id number] METHODOLOGY: Deparaffinized sections of prefer/formalin-fixed tissue or PAP/DQ stained slides are incubated with monoclonal/polyclonal antibodies/oligonucleotide probes. Localization is made via biotin free immunoperoxidase method. Appropriate controls are performed and reacted as expected. Results on target cell population are indicated in the following table: RESULTS: ANTIBODY / CLONE RESULT Block A H Pylori (polyclonal) negative Block D P53 (DO-7) positive, wild type Ki-67 (30-9) positive, low These tests were developed and their performance characteristics determined by [facility]. They may not have been cleared or approved by the U.S. Food and Drug Administration. The FDA has determined that such clearance or approval is not necessary. The above immunohistochemical/dualISH markers are ordered and reviewed by the Pathologist. INTERPRETATION: A. Gastric antrum, biopsy: Negative for Helicobacter pylori organisms. D. Distal esophagus, biopsy: No evidence of dysplasia. JB/ 09/19/2023
[2023-09-17 10:16] VITALS: BP 106/70; BP 161/86; PULSE 72; RESP 16; TEMP 36.6; O2SAT 92
--- NOTE | 2023-09-17 10:17 | OP.EGD_ITS ---
Patient Name: Jane Sharma Procedure Date: 09/17/2023 9:50 AM Date of : 1950 Age: 72 Procedure: Upper GI endoscopy Indications: Gastro-esophageal reflux disease Providers: Elvis Feliz MD Referring MD: Clyde Linda Medicines: See the Anesthesia note for documentation of the administered medications Complications: No immediate complications. Procedure: Pre-Anesthesia Assessment: - Prior to the procedure, a History and Physical was performed, and patient medications and allergies were reviewed. The patient's tolerance of previous anesthesia was also reviewed. The risks and benefits of the procedure and the sedation options and risks were discussed with the patient. All questions were answered, and informed consent was obtained. Prior Anticoagulants: The patient has taken no anticoagulant or antiplatelet agents. ASA Grade Assessment: III - A patient with severe systemic disease. After reviewing the risks and benefits, the patient was deemed in satisfactory condition to undergo the procedure. After obtaining informed consent, the endoscope was passed under direct vision. Throughout the procedure, the patient's blood pressure, pulse, and oxygen saturations were monitored continuously. The Colonoscope was introduced through the mouth, and advanced to the third part of duodenum. The upper GI endoscopy was accomplished without difficulty. The patient tolerated the procedure well. Scope In: 9:56:36 AM Scope Out: 10:04:26 AM Total Procedure Duration Time 0 hours 7 minutes 50 seconds Findings: Esophagitis with no bleeding was found 20 cm from the incisors. Biopsies were taken with a cold forceps for histology. Esophagitis with no bleeding was found 34 cm from the incisors. Biopsies were taken with a cold forceps for histology. A large hiatal hernia was present. Diffuse mildly erythematous mucosa without bleeding was found in the gastric body and in the gastric antrum. Biopsies were taken with a cold forceps for histology. Biopsies were taken with a cold forceps for histology. Biopsies were taken with a cold forceps on the greater curvature of the stomach, on the lesser curvature of the stomach and in the gastric antrum for histology. The examined duodenum was normal. Impression: - Reflux esophagitis with no bleeding. Biopsied. - Reflux esophagitis with no bleeding. Biopsied. - Large hiatal hernia. - Erythematous mucosa in the gastric body and antrum. Biopsied. - Normal examined duodenum. - Biopsies were taken with a cold forceps for histology on the greater curvature of the stomach, on the lesser curvature of the stomach and in the gastric antrum. Recommendation: - Discharge patient to home. - Resume previous diet. - Continue present medications. - Telephone my office for pathology results in 1 week. Procedure Code(s): --- Professional --- 10717, Esophagogastroduodenoscopy, flexible, transoral; with biopsy, single or multiple Diagnosis Code(s): --- Professional --- K21.00, Gastro-esophageal reflux disease with esophagitis, without bleeding K44.9, Diaphragmatic hernia without obstruction or gangrene K31.89, Other diseases of stomach and duodenum CPT copyright 2021 [employer]. All rights reserved. The codes documented in this report are preliminary and upon professional fee coder review may be revised to meet current compliance requirements. Elvis Feliz MD 09/17/2023 10:16:47 AM This report has been signed electronically. Number of Addenda: 0 Note Initiated On: 09/17/2023 9:50 AM
--- NOTE | 2023-09-17 10:17 | OP.CCLET_ITS ---
09/17/2023 Clyde Linda [address] [place] [address] Re : Upper GI endoscopy procedure for Jane Sharma Dear Dr. Linda This procedure was performed on Sunday, September 17, 2023. My impressions and recommendations are as follows: Impressions : - Reflux esophagitis with no bleeding. Biopsied. - Reflux esophagitis with no bleeding. Biopsied. - Large hiatal hernia. - Erythematous mucosa in the gastric body and antrum. Biopsied. - Normal examined duodenum. - Biopsies were taken with a cold forceps for histology on the greater curvature of the stomach, on the lesser curvature of the stomach and in the gastric antrum. Recommendations : - Discharge patient to home. - Resume previous diet. - Continue present medications. - Telephone my office for pathology results in 1 week. My findings are described in the full procedure note, which is enclosed. If I can be of further assistance, please feel free to contact me at Doctor phone number(s): Work: . Sincerely, Elvis Feliz MD 09/17/2023 10:16:47 AM This report has been signed electronically.
[2023-09-17 10:20] VITALS: BP 110/71; BP 161/86; PULSE 72; RESP 16; O2SAT 92
--- NOTE | 2023-09-17 10:21 | OP.COLON_ITS ---
Patient Name: Jane Sharma Procedure Date: 09/17/2023 10:04 AM Date of : 1950 Age: 72 Procedure: Colonoscopy Indications: High risk colon cancer surveillance: Personal history of colonic polyps Providers: Elvis Feliz MD Referring MD: Clyde Linda Medicines: General Anesthesia Patient Profile: Last Colonoscopy: 3 years ago. Complications: No immediate complications. Procedure: Pre-Anesthesia Assessment: - Prior to the procedure, a History and Physical was performed, and patient medications and allergies were reviewed. The patient's tolerance of previous anesthesia was also reviewed. The risks and benefits of the procedure and the sedation options and risks were discussed with the patient. All questions were answered, and informed consent was obtained. Prior Anticoagulants: The patient has taken no anticoagulant or antiplatelet agents. ASA Grade Assessment: III - A patient with severe systemic disease. After reviewing the risks and benefits, the patient was deemed in satisfactory condition to undergo the procedure. - Prior to the procedure, a History and Physical was performed, and patient medications and allergies were reviewed. The patient's tolerance of previous anesthesia was also reviewed. The risks and benefits of the procedure and the sedation options and risks were discussed with the patient. All questions were answered, and informed consent was obtained. Prior Anticoagulants: The patient has taken no anticoagulant or antiplatelet agents. ASA Grade Assessment: III - A patient with severe systemic disease. After reviewing the risks and benefits, the patient was deemed in satisfactory condition to undergo the procedure. After I obtained informed consent, the scope was passed under direct vision. Throughout the procedure, the patient's blood pressure, pulse, and oxygen saturations were monitored continuously. The Colonoscope was introduced through the anus with the intention of advancing to the cecum. The scope was advanced to the sigmoid colon before the procedure was aborted. Medications were given. The colonoscopy was performed with difficulty due to inadequate bowel prep. The patient tolerated the procedure well. The quality of the bowel preparation was unsatisfactory. The colonoscopy was aborted. Scope In: 10:06:27 AM Scope Out: 10:10:42 AM Total Procedure Duration Time 0 hours 4 minutes 15 seconds Findings: Hemorrhoids were found on perianal exam. Impression: - Preparation of the colon was unsatisfactory. - The procedure was aborted. - Hemorrhoids found on perianal exam. - No specimens collected. Recommendation: - Discharge patient to home. - Resume previous diet. - Repeat colonoscopy in 2 weeks for surveillance. - Continue present medications. Diagnosis Code(s): --- Professional --- Z86.010, Personal history of colonic polyps K64.9, Unspecified hemorrhoids Elvis Feliz MD 09/17/2023 10:20:30 AM This report has been signed electronically. Number of Addenda: 0 Note Initiated On: 09/17/2023 10:04 AM
--- NOTE | 2023-09-17 10:21 | OP.CCLET_ITS ---
09/17/2023 Clyde Linda [address] [place] [address] Re : Colonoscopy procedure for Jane Sharma Dear Dr. Linda This procedure was performed on Sunday, September 17, 2023. My impressions and recommendations are as follows: Impressions : - Preparation of the colon was unsatisfactory. - The procedure was aborted. - Hemorrhoids found on perianal exam. - No specimens collected. Recommendations : - Discharge patient to home. - Resume previous diet. - Repeat colonoscopy in 2 weeks for surveillance. - Continue present medications. My findings are described in the full procedure note, which is enclosed. If I can be of further assistance, please feel free to contact me at Doctor phone number(s): Work: . Sincerely, Elvis Feliz MD 09/17/2023 10:20:30 AM This report has been signed electronically.
[2023-09-17 10:25] VITALS: BP 104/71; BP 161/86; PULSE 74; RESP 16; O2SAT 94
[2023-09-17 10:30] VITALS: BP 103/69; BP 161/86; PULSE 76; RESP 16; TEMP 36.7; O2SAT 94
[2023-09-17 10:59] VITALS: BP 161/86
== END 2023-09-17 11:45 | disposition home or self-care (01) ==
LOC: EN 08:12 → AC 08:13
PROVIDERS: PCP Family Medicine; Referring Provider Family Medicine; Visit Provider Surgery
PROC: 0DJD8ZZ Inspection of Lower Intestinal Tract, Via Natural or Artificial Opening Endoscopic (ICD-10-PCS; CPT 45378; principal; 2023-09-17 09:10)
DX: Z12.11 Encounter for screening for malignant neoplasm of colon (principal); K44.9 Diaphragmatic hernia without obstruction or gangrene; K29.50 Unspecified chronic gastritis without bleeding; K21.00 Gastro-esophageal reflux disease with esophagitis, without bleeding; K64.9 Unspecified hemorrhoids; K31.89 Other diseases of stomach and duodenum; Z87.891 Personal history of nicotine dependence; Z79.899 Other long term (current) drug therapy; Z86.718 Personal history of other venous thrombosis and embolism; Z86.010 Personal history of colon polyps
CPT/HCPCS: G0105; 43239; 88305; 88312; 88341; 88342; J7120; J2405

== ENCOUNTER 2023-10-07 07:28 | Day surgery (SDC) | payer MEDICARE, MEDICAID, SELFPAY ==
[2023-10-07] VITALS (7 sets, daily range): BP systolic 95–143; BP diastolic 59–81; PULSE 55–77; RESP 14–16; TEMP 36.6–37; O2SAT 95–100; BMI 26.5
--- NOTE | 2023-10-07 07:38 | HP.PCM_ITS ---
History and Physical Date of Admission: 10/07/23 On September 17, 2023 we attempted a combined upper and lower endoscopy. The upper endoscopy was accomplished but the lower endoscopy could not be accomplished due to a poor bowel prep. The patient returns today for an attempt at the colonoscopy. My previous notes reflect the following Visit Reasons: Gastroesophageal reflux disease (GERD) Chief Complaint: GERD Is patient in pain?: No Allergies No Known Allergies Allergy (Verified 08/12/23 14:25) Medications baclofen 10 mg tablet 10 mg PO TID PRN PRN Muscle Spasm #30 TABLETS 06/10/20 [Rx Confirmed 08/12/23] cyclobenzaprine 10 mg tablet 10 mg PO PRN PRN muscle spasms 07/14/20 [History Confirmed 08/12/23] omeprazole 20 mg delayed release,disintegrating tablet 20 mg PO DAILY ##90 07/19/20 [Rx Confirmed 08/12/23] alendronate 70 mg tablet (Fosamax) 70 mg PO QWEEK 08/12/23 [History Confirmed 08/12/23] calcium carbonate (Calcium 600) 600 mg PO DAILY 08/12/23 [History Confirmed 08/12/23] cholecalciferol (vitamin D3) 125 mcg (5,000 unit) capsule 125 mcg PO DAILY 08/12/23 [History Confirmed 08/12/23] [facility] Medical History (Updated 08/12/23 @ 05:[address] Elvis Feliz MD) Acute right ankle pain Anemia Anemia Avascular necrosis of bone of ankle Bacteremia due to methicillin susceptible Staphylococcus aureus (MSSA) Debility DVT, bilateral lower limbs Fracture of talus of right ankle, closed Inability to ambulate due to right ankle or foot Septic arthritis of right ankle Urinary tract infection Surgical History History of ectopic Hx of bladder repair surgery Hx of lithotripsy Hx of tonsillectomy Family History Father HypertensionMother CVA (cerebral vascular accident) Social History Smoking Status: Former smoker second hand exposure: No alcohol intake: never substance use type: does not use caffeine: Yes what type of physical activity do you participate in: none frequency: does not exercise HPI HPI HPI: 72-year-old female was referred by Dr Clyde Linda for evaluation of gastroesophageal reflux disease and a written copy my surgical consult recommendations will return to him. She notes symptoms of throat burning and sour brash. Since his regurgitation. She had previous history of reflux esophagitis and large hiatal hernia. I had seen her in the office previously July 06, 2020 regarding anemia. She had been taking Advil at that time. Her hemoglobin was 9.3 and hematocrit of 30.7 with a low iron level. Because of DVT she was on Eliquis therapy at that time. On July 19, 2020 I assisted her with her combined upper and lower endoscopy. The upper endoscopy demonstrated grade B reflux esophagitis with a large hiatal hernia. Prilosec therapy was initiated. She had a colonoscopy at that time suggesting the bowel prep was poor. No gross lesions could be identified. The patient was not in good health at that time so elected not to pursue a repeat bowel prep. Pathology from biopsy showed focal gastric metaplasia of the duodenum and chronic gastritis with focal changes of reflux esophagitis. Tubular adenoma of the transverse colon x 2. H. pylori was negative. As of July 09, 2023 white blood cell count of 6.5 with a hemoglobin 13.5 hematocrit 42.1 platelet count of 283,000. BUN is 15 and creatinine 0.7. Liver function tests are normal. The patient is completely medication dependent. She does have breakthrough reflux symptoms. She is much healthier than when I last saw her. She is bright alert comfortable. She is no longer on iron therapy. Her anemia has resolved. ROS General General: No weight change, appetite, fatigue, colon cancer, breast cancer or weakness HEENT HEENT: No difficulty swallowing, eye injury, eye surgery, swollen glands or hoarseness Endo Endocrine: No thyroid disease, diabetes mellitus, thyroid cancer, Hair loss, heat intolerance or cold intolerance Skin Skin: No rash or changing moles Musc Musculoskeletal: Yes back problems and arthritis; No rheumatoid arthritis, gout or joint pain Cardio Cardiovascular: No murmur, pacemaker, heart disease, atrial fibrillation, high blood pressure, heart attack, heart stent, palpitations, shortness of breat with exertion or chest pain Psych Psychiatric: No depression, anxiety or hearing voices Resp Respiratory: No shortness of breath, No sleep apnea, No cough, No COPD, No asthma, No emphysema and No wheezing Gastro Gastrointestinal: No abdominal pain, No nausea or vomiting, No diarrhea, No constipation, No blood in stool, Yes acid reflux, No hemorrhoids, No ulcers, No gallbladder problem and No black,tarry stools Ryne Hematologic: No blood thinners, No blood disorders, No bleeding, No anemia and No blood clots Neuro Neurologic: No system reviewed and no additional complaints, except as documented, No as per HPI, No abnormal gait, No abnormal hearing, No abnormal movements, No abnormal speech, No behavioral changes, No burning sensations, No confusion, No convulsions, No disequilibrium, No dizziness, No localized weakness, No frequent falls, No headache(s), No lack of coordination, No loss of vision, No memory loss, No numbness, No other visual disturbances, No radicular pain, No restless legs, No sensory deficit, No syncope, No tingling, No tremor(s), No weakness and No other Exam Const General: cooperative, healthy appearing, comfortable and no acute distress HENMT Head: normal to inspection Eyes General: appearance normal, both eyes and all related structures Neck Neck: normal visual inspection Resp Effort & Inspection: normal respiratory effort Auscultation: clear to auscultation bilaterally Cardio Rate: regular rate Rhythm: regular rhythm GI Palpation: soft and no hepatosplenomegaly Musc Cervical Spine: normal cervical lordosis Skin General: no rashes or lesions noted Neuro General: patient alert, patient awake and patient oriented x3 Extrem General: no calf tenderness Other: Mild lower extremity swelling. Some deformity of the right ankle Psych Appearance: grossly normal Assessment and Plan Assessment and Plan (1) Gastroesophageal reflux disease: Qualifiers: Esophagitis bleeding: unspecified whether hemorrhage Esophagitis presence: with esophagitis Qualified Code(s): K21.00 - Gastro-esophageal reflux disease with esophagitis, without bleeding (2) Personal history of colonic polyps: Status: Acute Plan: I am recommending to the patient that we pursue a combined esophagogastroduodenoscopy with possible biopsy and colonoscopy with possible biopsy or polypectomy as indicated. She is medication dependent for her reflux disease and her general health has dramatically improved from her previous visit with me June 2020. She is not on any anticoagulant. Her previous colonoscopy on the same date however was a very poor bowel prep. We did remove some benign colonic polyps. I am recommending to her that we pursue a colonoscopy at this time as well. We will need to provide a slightly more aggressive bowel prep. She is aware of technique, benefit, risk, alternatives. I appreciate the ongoing opportunity of assisting with her surgical care Copy: Dr Clyde Feliz M.D., F.A.C.S I have examined the patient and the H&P has been reviewed. There are no clinical changes since date of exam. Elvis Feliz M.D., F.A.C.S.
--- NOTE | 2023-10-07 08:00 | PCM.PRE.AN2 ---
ASA Classification* ASA Classification ASA Classification: 2 Assessment & Plan Anesthesia* Anesthesia Assessment Anesthesia Assessment: Discussed sedation and/or anesthesia options, risks, benefits, and alternatives with patient/parents/legal guardian/POA. Questions invited. The patient/parents/legal guardian/POA seems to understand and agrees to proceed with anesthesia plan. Reviewed the physical assessment, medical history, allergy history and patient home medications list prior to surgery/procedure/anesthetic and documented any changes. Performed airway and anesthesia risk assessments. 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 When Was Last Pacemaker Check QUESTION #4 FULL TEXT: You/Your Family Experience fever (hyperthermia) with Anesthesia Last Oral Intake Last Oral intake: Last Oral Intake NPO since Meds taken in AM with sips of water? 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 Female Yes 10/01/23 12:33 HX of Motion Sickness No 10/01/23 12:33 HX of N/V After Surgery No 10/01/23 12:33 Non-Smoker Yes 10/01/23 12:33 Duration of Surgery greater No 10/01/23 12:33 than 60 minutes Number of Risk Factors 2 10/01/23 12:33 PONV Score Moderate Risk 10/01/23 12:33 Height & Weight Height & Weight: Anesthesia: Height & Weight Height 5 ft 09/17/23 08:34 Respiratory Assessment Respiratory Assessment - plant protection supervisor: Respiratory Tract Infection Hx - plant protection supervisor Hx Respiratory Tract Infection No 10/01/23 12:33 STOP Sleep Apnea STOP Sleep Apnea - plant protection supervisor: STOP Sleep Apnea - plant protection supervisor Hx Hypertension No 10/01/23 12:33 Hx Sleep Apnea No 10/01/23 12:33 CPAP BIPAP Do you snore loudly (louder No 10/01/23 12:33 than talking or can be heard Do you often feel tired/ No 10/01/23 12:33 fatigued/ sleepy during daytime? Has anyone observed you stop No 10/01/23 12:33 breathing during sleep? STOP Results Negative 10/01/23 12:33 QUESTION #5 FULL TEXT : Do you snore loudly (louder than talking or can be heard through closed doors)? 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 Specify any problems Hx of Preganancy in last 3 N/A 10/01/23 12:33 Months Nurse Filling Out Transfusion NBUCHER 10/01/23 12:33 & Questions: Date: 10/01/23 10/01/23 12:33 Time: 12:35 10/01/23 12:33 Patient unable to answer at this time (ie. confused, unrespo /Reproduction History /Reproductive History - plant protection supervisor: /Reproductive Hx- plant protection supervisor Hx Now Gestational Age (in weeks): EDC: Hx Hx Para Hx Section SAB No 10/01/23 12:33 Active Medications Active Medications: Current Medications Generic Name Dose Route Start Last Admin Trade Name Freq PRN Reason Stop Dose Admin Lactated Ringer's 1,000 mls @ 15 mls/hr 10/07/23 07:45 IV .Q48H HUSAM Anesthesia Focused Assessment* Airway Assessment Mouth opens: >3 cm Mallampati Score: II Focused Labs Anesthesia Preop lab: CBC WBC 6.5 K/mm3 (4.4-11.0) 07/09/23 13:46 RBC 4.66 M/mm3 (4.2-5.4) 07/09/23 13:46 Hgb 13.5 g/dL (12.0-15.0) 07/09/23 13:46 Hct 42.1 % (37-47) 07/09/23 13:46 Plt Count 283 K/mm3 (150-450) 07/09/23 13:46 CHEMISTRY Potassium 3.8 mmol/L (3.5-5.1) 07/09/23 13:46 Sodium 140 mmol/L (136-145) 07/09/23 13:46 Magnesium 2.3 mg/dL (1.6-2.6) 05/03/20 06:30 BUN 15 mg/dL (7-18) 07/09/23 13:46 Creatinine 0.70 mg/dL (0.55-1.02) 07/09/23 13:46 Glucose 80 mg/dL (74-106) 07/09/23 13:46 TSH 0.87 uIU/mL (0.358-3.74) 07/09/23 13:46 COAG PT 13.8 SECONDS (11.7-14.9) 05/01/20 00:26 Review of Systems (Anesthesia) ROS Narrative System reviewed and no additional complaints, except as documented. [facility] Medical History Wears glasses History of GI bleed Heartburn Former smoker Anemia Fracture of talus of right ankle, closed Avascular necrosis of bone of ankle Anemia Bacteremia due to methicillin susceptible Staphylococcus aureus (MSSA) Urinary tract infection DVT, bilateral lower limbs Debility Septic arthritis of right ankle Acute right ankle pain Inability to ambulate due to right ankle or foot Home Medications ?Medication ?Instructions ?Recorded ?Last Taken ?Type baclofen 10 mg tablet 10 mg PO TID PRN PRN Muscle Spasm 06/10/20 Unknown Rx #30 TABLETS cyclobenzaprine 10 mg tablet 10 mg PO PRN PRN muscle spasms 07/14/20 Unknown History omeprazole 20 mg delayed 20 mg PO DAILY ##90 03/30/21 06/17/24 Rx release,disintegrating tablet alendronate 70 mg tablet (Fosamax) 70 mg PO QWEEK 08/12/23 Unknown History calcium carbonate (Calcium 600) 600 mg PO DAILY 08/12/23 Unknown History cholecalciferol (vitamin D3) 125 125 mcg PO DAILY 08/12/23 Unknown History mcg (5,000 unit) capsule peg 3350-electrolytes 236 4,000 ml PO ONCE #4,000 mL 09/18/23 Unknown Rx gram-22.74 gram-6.74 gram-5.86 gram solution Allergy/AdvReac Type Severity Reaction Status Date / Time No Known Allergies Allergy Verified 10/07/23 07:59 Family History Father Hypertension Mother CVA (cerebral vascular accident) Surgical History History of cataract extraction with lens replacement Hx of tonsillectomy History of ectopic Hx of lithotripsy Hx of bladder repair surgery Social History Smoking Status: Former smoker second hand exposure: No alcohol intake: never substance use type: does not use caffeine: Yes what type of physical activity do you participate in: none frequency: does not exercise
[2023-10-07] MEDS: Lactated Ringers 1,000 ML 15 ML IV (08:03)
--- NOTE | 2023-10-07 08:30 | COLBX_PTH ---
PATIENT: SUELLEN LONG LOC: EN U#:[id number] AGE/SX: 72/F ROOM: RE10/07/[address]: Dr. Elvis Feliz MD : 1950 BED: DIS: 10/07/2023 SPEC #: [id number] RECD: 10/07/23 12:11 STATUS: JAMEY MELENDEZSteve #: [id number] MEAGHAN: 10/07/23 08:[address]: Elvis Feliz DEPT: SURGICAL PATHOLOGY RECD BY: Lupis Bedoya ENTERED: 10/07/23 13:23 SP TYPE: COLON BX OTHR DR: Dr. Clyde Linda MD Tissues: Transverse colon Procedures: Surgery Specimen Level IV HEADER OPERATION: Colonoscopy, polypectomy, hemostasis clip PRE-OP DIAGNOSIS: Gastroesophageal reflux disease, esophagitis bleeding TISSUE SUBMITTED: Mid transverse polyp MICROSCOPIC DIAGNOSIS Mid transverse colon polyp, biopsy: Tubular adenoma. AM/mr 10/08/2023 MICROSCOPIC DESCRIPTION Slides are reviewed. GROSS DESCRIPTION Received in fixative is one container labeled with the patient's name and designated Mid transverse polyp. The specimen consists of multiple irregular fragments of light lee soft tissue that in aggregate measure 0.5 x 0.5 x 0.1 cm. The specimen is totally submitted in one cassette. AM/mr 10/07/2023 TC:5 CPT:11100
--- NOTE | 2023-10-07 09:25 | OP.CCLET_ITS ---
10/07/2023 Clyde Linda [address] [place] [address] Re : Colonoscopy procedure for Jane Sharma Dear Dr. Linda This procedure was performed on Saturday, October 07, 2023. My impressions and recommendations are as follows: Impressions : - Hemorrhoids found on perianal exam. - One 6 mm polyp in the mid transverse colon, removed with a cold snare. Resected and retrieved. Clip was placed. - Diverticulosis in the entire examined colon. Recommendations : - Discharge patient to home. - Resume previous diet. - Continue present medications. - Repeat colonoscopy in 5 years for surveillance based on pathology results. - Telephone my office for pathology results in 1 week. My findings are described in the full procedure note, which is enclosed. If I can be of further assistance, please feel free to contact me at Doctor phone number(s): Work: . Sincerely, Elvis Feliz MD 10/07/2023 9:24:55 AM This report has been signed electronically.
--- NOTE | 2023-10-07 09:25 | OP.COLON_ITS ---
Patient Name: Jane Sharma Procedure Date: 10/07/2023 8:49 AM Date of : 1950 Age: 72 Procedure: Colonoscopy Indications: High risk colon cancer surveillance: Personal history of colonic polyps Providers: Elvis Feliz MD Referring MD: Clyde Linda Medicines: See the Anesthesia note for documentation of the administered medications Patient Profile: Last Colonoscopy: June 2020. Complications: No immediate complications. Procedure: Pre-Anesthesia Assessment: - Prior to the procedure, a History and Physical was performed, and patient medications and allergies were reviewed. The patient's tolerance of previous anesthesia was also reviewed. The risks and benefits of the procedure and the sedation options and risks were discussed with the patient. All questions were answered, and informed consent was obtained. Prior Anticoagulants: The patient has taken no anticoagulant or antiplatelet agents. ASA Grade Assessment: II - A patient with mild systemic disease. After reviewing the risks and benefits, the patient was deemed in satisfactory condition to undergo the procedure. After I obtained informed consent, the scope was passed under direct vision. Throughout the procedure, the patient's blood pressure, pulse, and oxygen saturations were monitored continuously. The colonoscope was introduced through the anus and advanced to the cecum, identified by appendiceal orifice and ileocecal valve. The colonoscopy was technically difficult and complex due to multiple diverticula in the colon. Successful completion of the procedure was aided by changing the patient to a supine position. The patient tolerated the procedure well. The quality of the bowel preparation was good. The ileocecal valve and the appendiceal orifice were photographed. Scope In: 8:55:16 AM Scope Withdrawal Time 0 hours 10 minutes 48 seconds Scope Out: 9:19:43 AM Total Procedure Duration Time 0 hours 24 minutes 27 seconds Findings: Hemorrhoids were found on perianal exam. A 6 mm polyp was found in the mid transverse colon. The polyp was sessile. The polyp was removed with a cold snare. Resection and retrieval were complete. To prevent bleeding post-intervention, one hemostatic clip was successfully placed. There was no bleeding at the end of the procedure. Multiple small and large-mouthed diverticula were found in the entire colon. Impression: - Hemorrhoids found on perianal exam. - One 6 mm polyp in the mid transverse colon, removed with a cold snare. Resected and retrieved. Clip was placed. - Diverticulosis in the entire examined colon. Recommendation: - Discharge patient to home. - Resume previous diet. - Continue present medications. - Repeat colonoscopy in 5 years for surveillance based on pathology results. - Telephone my office for pathology results in 1 week. Procedure Code(s): --- Professional --- 31326, Colonoscopy, flexible; with removal of tumor(s), polyp(s), or other lesion(s) by snare technique Diagnosis Code(s): --- Professional --- Z86.010, Personal history of colonic polyps K64.9, Unspecified hemorrhoids D12.3, Benign neoplasm of transverse colon (hepatic flexure or splenic flexure) K57.30, Diverticulosis of large intestine without perforation or abscess without bleeding CPT copyright 2021 [employer]. All rights reserved. The codes documented in this report are preliminary and upon head charrer review may be revised to meet current compliance requirements. Elvis Feliz MD 10/07/2023 9:24:55 AM This report has been signed electronically. Number of Addenda: 0 Note Initiated On: 10/07/2023 8:49 AM
--- NOTE | 2023-10-07 09:27 | PCM.POST.ANE ---
Anesthesia: Postop Eval I Current Vital Signs Temperature: 98.6 F Pulse Rate: 72 Blood Pressure: 95/59 Respiratory Rate: 14 Pulse Ox: 97 Oxygen Delivery Method: Room Air Assessment Airway patent: Yes Spontaneous unlabored respirations: Yes Mental status: Asleep nausea: No Vomiting: No Anesthesia Complication: No Fluid Hydration Crystalloid volume administer (ml): 600 Total IV fluid infused: 600 Progress Note Anesthesia document: Postop Eval 1 completed: Yes
--- NOTE | 2023-10-07 12:34 | PCM.POSTANE2 ---
Anesthesia Postop Eval I Sum Postop Eval Completion status Anesthesia document: Postop Eval 1 completed: Yes Anesthesia Postop Eval I Summary Anesthesia Postop Eval I Summary: Anesthesia Postop Eval I: Assessment Summary Airway patent Yes 10/07/23 09:29 [email or web address] Spontaneous unlabored Yes 10/07/23 09:29 [email or web address] respirations Mental status Asleep 10/07/23 09:29 [email or web address] nausea No 10/07/23 09:29 [email or web address] Vomiting No 10/07/23 09:29 [email or web address] Anesthesia Postop Eval I: Fluid Summary Crystalloid volume administer 600 10/07/23 09:29 [email or web address] (ml) Colloids volume administered ( ml) Blood Product volume administered (ml) Total IV fluid infused 600 10/07/23 09:29 [email or web address] Anesthesia Postop Eval I: Summary Notes Anesthesia Complication No 10/07/23 09:29 [email or web address] Anesthesia Complication Comment: Post-operative progress note Anesthesia: Postop Eval II Evaluation Mental status: Awake Pain Level: 0 nausea: No Vomiting: No Complications Anesthesia Complication: No
== END 2023-10-07 10:48 | disposition home or self-care (01) ==
LOC: EN 07:29 → AC 07:31
PROVIDERS: PCP Family Medicine; Referring Provider Family Medicine; Visit Provider Surgery
PROC: 0DJD8ZZ Inspection of Lower Intestinal Tract, Via Natural or Artificial Opening Endoscopic (ICD-10-PCS; CPT 45378; principal; 2023-10-07 08:25)
DX: Z12.11 Encounter for screening for malignant neoplasm of colon (principal); Z87.891 Personal history of nicotine dependence; K57.30 Diverticulosis of large intestine without perforation or abscess without bleeding; Z86.010 Personal history of colon polyps; K21.00 Gastro-esophageal reflux disease with esophagitis, without bleeding; K64.4 Residual hemorrhoidal skin tags; D12.3 Benign neoplasm of transverse colon; Z79.899 Other long term (current) drug therapy
CPT/HCPCS: 45385; 88305; J7120; J2405

== ENCOUNTER → 2024-01-14 | Outpatient (CLI) | payer MEDICARE, MEDICAID, SELFPAY ==
[2024-01-14 14:43] LABS: Mucous, Urine 0 SEEN /hpf (<or=2+)
[2024-01-14 17:42] LABS: Absolute Lymphocyte Count 1.82 X10^3/uL (0.83-4.51); Basophil# 0.08 X10^3/uL; Basophil% 1.2 % (0-1); Eosinophil# 0.08 X10^3/uL; Eosinophils% 1.2 % (0-5); Hematocrit 42.1 % (37-47); Hemoglobin 13.4 g/dL (12.0-15.0); Lymphocyte # 1.82 X10^3/ul (0.83-4.51); Mean Corp Hgb Conc 31.8 g/dL (32-36); Mean Corpuscular Hgb 28.6 pg (27.0-32.0); Mean Platelet Vol. 10.9 fl (6.2-12.0); Monocyte% 7.7 % (0-10); NRBC Flagged by Analyzer 0 % (0-5); Neutrophil % 61.6 % (47-70); Platelet Count 306 K/mm3 (150-450); RBC Distribution Width CV 14.4 % (11.6-14.6); RBC Distribution Width SD 47.1 fl (35.1-43.9); Red Blood Count 4.68 M/mm3 (4.2-5.4); White Blood Count 6.5 K/mm3 (4.4-11.0)
[2024-01-14 17:58] LABS: Color, Urine Yellow (Yellow); Glucose, Dipstick Normal (Normal); Ketone-Dipstick Negative (Negative); Leukocyte Esterase-Dipstick 500 /ul (Negative); Nitrite-Dipstick Negative (Negative); Occult Blood-Urine 250 /ul (Negative); Protein-Dipstick 30 mg/dl (Negative); Urine Bilirubin Dipstick Negative (Negative); Urine Clarity Turbid (Clear); Urine Urobilinogen Normal (Normal)
[2024-01-14 18:27] LABS: Bacteria 3+ /hpf (None Seen); Red Blood Cells-Urine 10-25 SEEN /hpf (0-5); Renal Epithelial Cells 0-5 SEEN /hpf (0-5); Squamous Epithelial Cells - UA 0-5 SEEN /hpf (5-10); Transitional Epithelial - Ur 0-5 SEEN /hpf (0-5); White Blood Cells 25-50 SEEN /hpf (0-5)
[2024-01-14 18:28] LABS: Fine Granular Cast- Urine 5-10 SEEN /lpf (0-5); White Cell Cast 0-5 SEEN /lpf (None Seen)
[2024-01-14 18:31] LABS: ALB/GLOB Ratio 1.1 RATIO (0.9-2.4); AST(SGOT) 14 U/L (15-37); Alanine Aminotransfer ALT/SGPT 19 U/L (13-56); Albumin, Serum 4.1 g/dL (3.2-5.0); Alkaline Phosphatase 61 U/L (45-117); Anion Gap 6 (5-15); BUN 21 mg/dL (7-18); BUN/Creat Ratio 28.6 RATIO (10-20); Calcium,Total 9.6 mg/dL (8.5-10.1); Chloride 111 mmol/L (98-107); Cholesterol 251 mg/dL (200); Creatinine, Serum 0.73 mg/dL (0.55-1.02); EST Glomerular Filtration Rate 82 mL/min (>60); Est Glom Filt Rate - Afr Amer 100 mL/min (>60); Globulin 3.6 g/dL (2.2-4.2); Glucose 95 mg/dL (74-106); High Density Lipoprotein 58 mg/dL; Magnesium 2.1 mg/dL (1.6-2.6); Potassium 3.5 mmol/L (3.5-5.1); Protein, Total 7.7 g/dL (6.4-8.2); Sodium Level 142 mmol/L (136-145); Triglycerides 140 mg/dL; Very Low Density Lipoprotein 28 mg/dL (5-40)
== END | disposition home or self-care (01) ==
LOC: MFPLAB 14:40
PROVIDERS: PCP Family Medicine; Visit Provider Family Medicine
DX: I10 Essential (primary) hypertension (principal)
CPT/HCPCS: 36415; 80053; 80061; 81001; 83735; 84443; 85025

== ENCOUNTER → 2024-02-12 | Outpatient (CLI) | payer MEDICARE, MEDICAID, SELFPAY ==
--- NOTE | 2024-02-12 12:58 | BD_ITS ---
STUDY: DUAL ENERGY X-RAY ABSORPTIOMETRY / DXA REASON FOR EXAM: Female, 73 years old. 733.00OsteoporosisBONE DENSITY REASON FOR EXAM TECHNIQUE: Bone Mineral Density (BMD) measurements of lumbar spine and bilateral hips were obtained. COMPARISON: Comparison is made with prior study dated February 01, 2022. FINDINGS: Lumbar Spine (L1-L4): g/cm2 (0.862) / T-score (-2.2) / Z-score (0.3) Findings are suggestive of osteopenia with a high fracture risk. Left Femur Total: g/cm2 (0.859) / T-score (-0.7) / Z-score (1.1) Left Femoral Neck: g/cm2 (0.685) / T-score (-1.5) / Z-score (0.6) Right Femur Total: g/cm2 (0.716) / T-score (-1.9) / Z-score (-0.1) Right Femoral Neck: g/cm2 (0.601) / T-score (-2.2) / Z-score (-0.2) The T-Scores on the most recent prior examination were: Lumbar Spine (L1-L4): There has been improvement of bone density since the previous examination. Left Femur Total: which represents an improvement of 6.1%. Right Femur Total: which represents an improvement of 3.8%. BD/Dexa Bone Density Study IMPRESSION: The patient is considered osteopenic as outlined below according to World Lane Organization (WHO) criteria with a high fracture risk. There has been improvement of bone density since the previous examination. Reference Information: The T-score is the number of standard deviations above or below the standard which is normal for young adults at their peak bone mineral density. The World Health Organization (WHO) interprets the T-scores as follows: Above -1 Normal bone density Between -1 and -2.5 Osteopenia Equal to / or below -2.5 Osteoporosis As a practical clinical guideline, osteopenia may be graded as follows: Mild -1 through -1.5 Moderate -1.6 through -2.0 Severe -2.1 through -2.4 The Z-score is the number of standard deviations above or below age-matched controls. A Z-score of less than -1.5 would be considered abnormal. References: 1. NIH Osteoporosis and Related Bone Diseases www osteo.org 2. International Society for Clinical Densitometry www iscd.org 3. National Osteoporosis Foundation www nof.org Electronically Signed: Doroteo Diaz MD at 13:10 EDT ,
--- NOTE | 2024-02-12 12:58 | BI_ITS ---
MAMMOGRAPHY - BILATERAL SCREENING REASON FOR EXAM: Female, 73 years old. Routine annual screening examination. PERTINENT HISTORY: Non-contributory. TECHNIQUE: Digital bilateral breast ramirez (3D mammographic acquisition) in the CC and MLO projections. 2-D mediolateral oblique (MLO) and craniocaudad (CC) views of both breasts were obtained. CAD: Full Field Digital Mammography with Computer Added Detection was performed. COMPARISON: Comparison is made with prior study February 04, 2023 and February 01, 2022. FINDINGS: Breast Composition: The breasts are heterogeneously dense, which may obscure small masses. There are no dominant masses or suspicious calcifications. Stable bilateral secretory calcifications. No other significant abnormalities are identified. There has been no significant change since the prior study. BI/SCRN MAMM (CAD)W/RAMIREZ BILAT IMPRESSION: Stable bilateral screening mammogram. Yearly follow-up mammogram recommended. (A) ASSESSMENT CATEGORY: BIRADS Category 2: Benign. A letter regarding these results will be sent to the patient by the facility within 30 days. Approximately 10% of breast cancers are not detected by mammography. A normal mammogram should not delay biopsy of a clinically suspicious abnormality. [id number] Electronically Signed: Doroteo Diaz MD at 14:20 EDT ,
--- OUTSIDE RECORDS SUMMARY | 2024-02-12 15:09 | XMS RPT_ITS | CCD ---
Demographics Address [facility] [address] [place] [address] Preferred Language Mauritanian Marital Status Buddhism Affiliation Unknown Race White Ethnic Group Unknown Author Organization [facility] ion Partnership [employer] [facility] Results Test Name Value Interpretation Reference Range Facility CURon 03-24-2020 CUR . MICRO - Microbiology PROCEDURE: Urine Culture [*1] SOURCE: Urine BODY SITE: COLLECTED DATE/TIME: 03/23/2020 09:32 EST RECEIVED DATE/TIME: 03/23/2020 14:50 EST START DATE/TIME: 03/23/2020 14:50 EST FREE TEXT SOURCE: FINAL REPORTS Final Report [] Verified Date/Time/Personne l: 03/24/2020 13:28 EST >100,000 organisms per mL Multiple bacterial morphotypes present. Probable Contamination. Suggest recollection if clinically indicated. Performing Locations *1: This test was performed at: [address], [address] [place] [address] ([place]) Comment on above: Performed By: #### C UR #### [place] [address] .Auto Diffon 03-23-2020 Ammonia (P) [Mass/Vol] 1.00 10 3/mcL Normal 0.15-1.00 [facility] ([place] Comment on above: Performed By: #### A ROMAINE, GFR, ADIFF, CBC #### [address] [address] #### CMP #### [place] [address] Basophils (Bld) [#/Vol] 0.00 10 3/mcL Normal 0.00-0.19 [facility] ([place] Comment on above: Performed By: #### A ROMAINE, GFR, ADIFF, CBC #### [address] [address] #### CMP #### [address] [address] Basophils/100 WBC (Bld) 0.1 % Normal 0.0-2.5 [facility] ([place]) Comment on above: Performed By: #### A ROMAINE, GFR, ADIFF, CBC #### [address] [address] #### CMP #### [address] [address] Eosinophils (Bld) [#/Vol] 0.00 10 3/mcL Normal 0.00-0.40 [facility] ([place]) Comment on above: Performed By: #### A ROMAINE, GFR, ADIFF, CBC #### [address] [address] #### CMP #### [address] [address] Eosinophils/100 WBC (Bld) 0.0 % Normal 0.0-7.0 [facility] ([place]) Comment on above: Performed By: #### A ROMAINE, GFR, ADIFF, CBC #### [address] [address] #### CMP #### [address] [address] Lymphocytes (Bld) [#/Vol] 0.50 10 3/mcL Low 0.77-3.85 [facility] ([place]) Comment on above: Performed By: #### A ROMAINE, GFR, ADIFF, CBC #### [address] [address] #### CMP #### [address] [address] Lymphocytes/100 WBC (Bld) 2.2 % Low 10.0-50.0 [facility] ([place]) Comment on above: Performed By: #### A ROMAINE, GFR, ADIFF, CBC #### [address] [address] #### CMP #### [address] [address] Monocytes/100 WBC (Bld) 4.5 % Normal 1.7-13.0 [facility] ([place] Comment on above: Performed By: #### A ROMAINE, GFR, ADIFF, CBC #### [address] [address] #### CMP #### [address] [address] Neutrophils/100 WBC (Bld) 93.2 % High 37.0-80.0 [facility] ([place]) Comment on above: Performed By: #### A ROMAINE, GFR, ADIFF, CBC #### [address] [address] #### CMP #### [address] [address] .GFRon 03-23-2020 GFR 50 ml/min/1.73sqm Normal [facility] ([place] Comment on above: Result Comment: GFR Population mean for , Non- Americans Ages 20-29 = 116 mL/min/1.73 sq.m. Ages 30-39 = 107 mL/min/1.73 sq.m. Ages 40-49 = 99 mL/min/1.73 sq.m. Ages 50-59 = 93 mL/min/1.73 sq.m. Ages 60-69 = 85 mL/min/1.73 sq.m. Ages 70+ = 75 mL/min/1.73 sq.m. Chronic Kidney Disease: Less than 60 mL/min/1.73 square meters End Stage Renal Disease: Less than 15 mL/min/1.73 square meters Performed By: #### A ROMAINE, GFR, ADIFF, CBC #### [address] [address] #### CMP #### [address] [address] GFR Non- 41 ml/min/1.73sqm Normal [facility] ([place] Comment on above: Result Comment: GFR Population mean for , Non- Americans Ages 20-29 = 116 mL/min/1.73 sq.m. Ages 30-39 = 107 mL/min/1.73 sq.m. Ages 40-49 = 99 mL/min/1.73 sq.m. Ages 50-59 = 93 mL/min/1.73 sq.m. Ages 60-69 = 85 mL/min/1.73 sq.m. Ages 70+ = 75 mL/min/1.73 sq.m. Chronic Kidney Disease: Less than 60 mL/min/1.73 square meters End Stage Renal Disease: Less than 15 mL/min/1.73 square meters Performed By: #### A ROMAINE, GFR, ADIFF, CBC #### [place] [address] #### CMP #### [place] [address] .NEUABSon 03-23-2020 Neutrophils (Bld) [#/Vol] 20.30 10 3/mcL High 2.85-6.16 [facility] ([place] Comment on above: Performed By: #### A ROMAINE, GFR, ADIFF, CBC #### [place] [address] #### CMP #### [place] [address] .Urinalysis Microscopic (AO) on 03-23-2020 RBC (U) [#/Vol] 5-10 Abnormal None Seen [facility] ([place]) Comment on above: Performed By: #### U AMICAO, UA #### [address] [address] UA Bacteria 2+ /hpf Abnormal [facility] ([place] Comment on above: Performed By: #### U AMICAO, UA #### [address] [address] UA Squam Epithelial 0-5 Abnormal None Seen [facility] ([place] Comment on above: Performed By: #### U AMICAO, UA #### [address] [address] UA WBC 15-25 Abnormal None Seen [facility] ([place] Comment on above: Performed By: #### U AMICAO, UA #### [address] [address] [facility] Erythrocyte distribution width (RBC) [Ratio] 13.8 % Normal 11.5-14.5 [facility] ([place] Comment on above: Performed By: #### A ROMAINE, GFR, ADIFF, CBC #### [address] [address] #### CMP #### [address] [address] Hematocrit (Bld) [Volume fraction] 36.0 % Low 37.0-47.0 [facility] ([place] Comment on above: Performed By: #### A ROMAINE, GFR, ADIFF, CBC #### [place] [address] #### CMP #### [address] [address] Hemoglobin (Bld) [Mass/Vol] 12.2 G/dL Normal 12.0-16.0 [facility] ([place] Comment on above: Performed By: #### A ROMAINE, GFR, ADIFF, CBC #### [place] [address] #### CMP #### [address] [address] MCH (RBC) [Entitic mass] 30.0 pg Normal 27.0-31.2 [facility] ([place] Comment on above: Performed By: #### A ROMAINE, GFR, ADIFF, CBC #### [place] [address] #### CMP #### [address] [address] MCHC (RBC) [Mass/Vol] 33.9 G/dL Normal 33.0-37.0 [facility] ([place] Comment on above: Performed By: #### A ROMAINE, GFR, ADIFF, CBC #### [place] [address] #### CMP #### [address] [address] MCV (RBC) [Entitic vol] 88.6 fL Normal 80.0-94.0 [facility] ([place] Comment on above: Performed By: #### A ROMAINE, GFR, ADIFF, CBC #### [place] [address] #### CMP #### [address] [address] Platelet mean volume (Bld) [Entitic vol] 8.2 fL Normal 7.4-10.4 [facility] ([place] Comment on above: Performed By: #### A ROMAINE, GFR, ADIFF, CBC #### [place] [address] #### CMP #### [place] [address] Platelets (Bld) [#/Vol] 225 10 3/mcL Normal 130-400 [facility] ([place] Comment on above: Performed By: #### A ROMAINE, GFR, ADIFF, CBC #### [place] [address] #### CMP #### [place] [address] RBC (Bld) [#/Vol] 4.06 10 6/mcL Low 4.20-5.40 [facility] ([place] Comment on above: Performed By: #### A ROMAINE, GFR, ADIFF, CBC #### [place] [address] #### CMP #### [place] [address] WBC (Bld) [#/Vol] 21.80 10 3/mcL Critically abnormal 4.60- 10.80 [facility] ([place] Comment on above: Performed By: #### A ROMAINE, GFR, ADIFF, CBC #### [place] [address] #### CMP #### [place] [address] CMPon 03-23-2020 Albumin [Mass/Vol] 3.4 G/dL Normal 3.4-4.8 [facility] ([place] Comment on above: Performed By: #### A ROMAINE, GFR, ADIFF, CBC #### [address] [address] #### CMP #### [address] [address] Albumin/Globulin [Mass ratio] 1.1 {ratio} Normal 1.1-2.5 [facility] ([place] Comment on above: Performed By: #### A ROMAINE, GFR, ADIFF, CBC #### [place] [address] #### CMP #### [address] [address] ALP [Catalytic activity/Vol] 76 U/L Normal 40-135 [facility] ([place] Comment on above: Performed By: #### A ROMAINE, GFR, ADIFF, CBC #### [place] [address] #### CMP #### [address] [address] ALT [Catalytic activity/Vol] 25 U/L Normal 14-59 [facility] ([place] Comment on above: Performed By: #### A ROMAINE, GFR, ADIFF, CBC #### [address] [address] #### CMP #### [address] [address] AST [Catalytic activity/Vol] 15 U/L Normal 10-40 [facility] ([place] Comment on above: Performed By: #### A ROMAINE, GFR, ADIFF, CBC #### [place] [address] #### CMP #### [address] [address] Bili Total 0.7 mg/dL Normal 0.2-1.0 [facility] ([place] Comment on above: Result Comment: Use of this assay is not recommended for patients undergoing treatment with eltrombopag due to the potential for falsely elevated results. Performed By: #### A ROMAINE, GFR, ADIFF, CBC #### [address] [address] #### CMP #### [address] [address] Calcium [Mass/Vol] 8.6 mg/dL Normal 8.4-10.2 [facility] ([place] Comment on above: Performed By: #### A ROMAINE, GFR, ADIFF, CBC #### [place] [address] #### CMP #### [address] [address] Chloride [Moles/Vol] 106 mmol/L Normal 98-107 [facility] ([place] Comment on above: Performed By: #### A ROMAINE, GFR, ADIFF, CBC #### [address] [address] #### CMP #### [address] [address] CO2 [Moles/Vol] 25 mmol/L Normal 23-31 [facility] ([place] Comment on above: Performed By: #### A ROMAINE, GFR, ADIFF, CBC #### [place] [address] #### CMP #### [address] [address] Creatinine [Mass/Vol] 1.28 mg/dL High 0.55-1.02 [facility] ([place] Comment on above: Performed By: #### A ROMAINE, GFR, ADIFF, CBC #### [address] [address] #### CMP #### [address] [address] Electrolyte Balance 11.0 mEq/L Normal [facility] ([place] Comment on above: Performed By: #### A ROMAINE, GFR, ADIFF, CBC #### [address] [address] #### CMP #### [address] [address] Globulin (S) [Mass/Vol] 3.2 G/dL Normal [facility] ([place] Comment on above: Performed By: #### A ROMAINE, GFR, ADIFF, CBC #### [address] [address] #### CMP #### [address] [address] Glucose [Mass/Vol] 156 mg/dL High 83-110 [facility] ([place] Comment on above: Performed By: #### A ROMAINE, GFR, ADIFF, CBC #### [address] [address] #### CMP #### [address] [address] Potassium [Moles/Vol] 3.6 mmol/L Normal 3.5-5.1 [facility] ([place] Comment on above: Performed By: #### A ORMAINE, GFR, ADIFF, CBC #### [address] [address] #### CMP #### [address] [address] Protein [Mass/Vol] 6.6 G/dL Normal 6.4-8.2 [facility] ([place] Comment on above: Performed By: #### A ROMAINE, GFR, ADIFF, CBC #### [address] [address] #### CMP #### [address] [address] Sodium [Moles/Vol] 142 mmol/L Normal 136-145 [facility] ([place] Comment on above: Performed By: #### A ROMAINE, GFR, ADIFF, CBC #### [address] [address] #### CMP #### [address] [address] Urea nitrogen [Mass/Vol] 24 mg/dL High 7-18 [facility] ([place] Comment on above: Performed By: #### A ROMAINE, GFR, ADIFF, CBC #### [place] [address] #### CMP #### [address] [address] Urea nitrogen/Creatinin e [Mass ratio] 19 ratio Normal 11-15 [facility] ([place] Comment on above: Performed By: #### A ROMAINE, GFR, ADIFF, CBC #### [place] [address] #### CMP #### [place] [address] UAon 03-23-2020 Color (U) Yellow Normal [facility] ([place] Comment on above: Performed By: #### U AMICAO, UA #### [address] [address] Glucose (U) [Mass/Vol] Negative Normal Negative [facility] ([place] Comment on above: Performed By: #### U AMICAO, UA #### [place] [id number] Ketones Ql (U) 15 mg/dL Abnormal Negative [facility] ([place]) Comment on above: Performed By: #### U AMICAO, UA #### [address] [address] UA Appear Slightly Cloudy Abnormal Clear [facility] ([place] Comment on above: Performed By: #### U AMICAO, UA #### [address] [address] UA Blood Moderate Abnormal Negative [facility] ([place] Comment on above: Performed By: #### U AMICAO, UA #### [address] [address] UA Leuk Est Large Abnormal Negative [facility] ([place] Comment on above: Performed By: #### U AMICAO, UA #### [address] [address] UA Nitrite Positive Abnormal Negative [facility] ([place] Comment on above: Performed By: #### U AMICAO, UA #### [place] [address] [place], [place] [address] UA pH 7.0 Normal 5.0 - 8.0 [facility] ([place] Comment on above: Performed By: #### U AMICAO, UA #### [address] [address] UA Protein Negative Normal Negative [facility] ([place] Comment on above: Performed By: #### U AMICAO, UA #### [address] [address] UA Spec Grav 1.020 Normal 1.015-1.025 [facility] ([place]) Comment on above: Performed By: #### U AMICAO, UA #### [address] [address] UA Specimen Type Void Normal [facility] ([place] Comment on above: Performed By: #### U AMICAO, UA #### [address] [address] UA Urobilinogen 0.2 E.U./dL Normal 0.2-1.0 [facility] ([place] Comment on above: Performed By: #### U AMICAO, UA #### [address] [address] Urobilinogen Qn (U) Negative Normal Negative [facility] ([place] Comment on above: Performed By: #### U AMICAO, UA #### [address] [address] Summary Purpose Family History No Family History Records Found Advance Directives No Advanced Directives Records Found Additional Source Comments INFORMATION SOURCE (unrecogn ized section and content) DATE CREATED AUTHOR 03/24/2020 [facility] jacob ([place]) FOR RECORDS PERTAINING TO PATIENTS WHO ARE OR HAVE BEEN ENROLLED IN A CHEMICAL DEPENDENCY/SUBSTANCEABUSE PROGRAM, SOME INFORMATION MAY BE OMITTED. This clinical summary was aggregated from multiple sources. Caution should be exercised in using it in the provision of clinical care. This summary normalizes information from multiple sources, and as a consequence, information in this document may materially change the coding, format and clinical context of patient data. In addition, data may be omitted in some cases. CLINICAL DECISIONS SHOULD BE BASED ON THE PRIMARY CLINICAL RECORDS. [email or web address]. provides no warranty or guarantee of the accuracy or completeness of information in this document.
== END | disposition home or self-care (01) ==
LOC: OPBD 12:58
PROVIDERS: PCP Family Medicine; Referring Provider Family Medicine; Visit Provider Family Medicine
DX: Z12.31 Encounter for screening mammogram for malignant neoplasm of breast (principal); M81.0 Age-related osteoporosis without current pathological fracture
CPT/HCPCS: 77063; 77067; 77080

== ENCOUNTER → 2024-07-29 | Outpatient (CLI) | payer MEDICARE, MEDICAID, SELFPAY ==
[2024-07-29 14:46] LABS: Mucous, Urine 0 SEEN /hpf (<or=2+)
[2024-07-29 18:02] LABS: Absolute Neutrophil Count 4.4 X10^3/uL (2.0-7.7); Basophil# 0.08 X10^3/uL; Basophil% 1.1 % (0-1); Eosinophil# 0.15 X10^3/uL; Eosinophils% 2.1 % (0-5); Hematocrit 39.7 % (37-47); Lymphocyte % 29.3 % (19-41); Mean Corp Hgb Conc 32.7 g/dL (32-36); Mean Corpuscular Hgb 29.7 pg (27.0-32.0); Mean Corpuscular Volume 90.8 fL (81-99); Monocyte# 0.43 X10^3/uL; NRBC Flagged by Analyzer 0 % (0-5); Neutrophil # 4.39 X10^3/uL (2.7-7.7); Neutrophil % 61.4 % (47-70); Platelet Count 302 K/mm3 (150-450); RBC Distribution Width SD 47.1 fl (35.1-43.9); Red Blood Count 4.37 M/mm3 (4.2-5.4); White Blood Count 7.2 K/mm3 (4.4-11.0)
[2024-07-29 18:32] LABS: Vitamin D,25 Hydroxy 27.7 ng/mL (30-100)
[2024-07-29 19:13] LABS: Cholesterol 164 mg/dL (<=200); High Density Lipoprotein 59 mg/dL; Low Density Lipoprotein Calc. 87 mg/dL; Triglycerides 91 mg/dL; Very Low Density Lipoprotein 18 mg/dL (5-40); cholesterol:hdl ratio screen 2.79
[2024-07-29 19:34] LABS: Color, Urine Yellow (Yellow); Glucose, Dipstick Normal (Normal); Ketone-Dipstick Negative (Negative); Leukocyte Esterase-Dipstick 100 /ul (Negative); Nitrite-Dipstick Positive (Negative); Occult Blood-Urine 250 /ul (Negative); Protein-Dipstick 30 mg/dl (Negative); Specific Gravity, Urine 1.025 (1.002-1.030); Urine Bilirubin Dipstick Negative (Negative); Urine Clarity Sl. Cloudy (Clear); Urine Urobilinogen Normal (Normal)
[2024-07-29 20:01] LABS: Red Blood Cells-Urine 25-50 SEEN /hpf (0-5); White Blood Cells 50-100 SEEN /hpf (0-5)
[2024-07-29 20:02] LABS: Bacteria 4+ /hpf (None Seen); Squamous Epithelial Cells - UA 5-10 SEEN /hpf (5-10)
== END | disposition home or self-care (01) ==
LOC: MFPLAB 14:42
PROVIDERS: PCP Family Medicine; Referring Provider Family Medicine; Visit Provider Family Medicine
DX: I10 Essential (primary) hypertension (principal); E55.9 Vitamin D deficiency, unspecified; R82.81 Pyuria
CPT/HCPCS: 36415; 80061; 81001; 82306; 85025; 87077; 87086; 87088

== ENCOUNTER → 2024-09-01 | Outpatient (CLI) | payer MEDICARE, MEDICAID, SELFPAY ==
--- NOTE | 2024-09-01 17:00 | US_ITS ---
PROCEDURE: KIDNEY AND BLADDER 09/01/2024 REASON FOR EXAM: UTI TECHNIQUE: Bilateral renal ultrasound. COMPARISON: None FINDINGS: RIGHT Kidney Size: 11.6 cm x 5.4 cm x 5.9 cm Volume: 190 mL Cortical Thickness (if discernible): 1.1 cm. (>6mm is normal) Fullness of the right renal pelvis. LEFT Kidney Size: 10.2 cm x 5.2 cm x 5.3 cm Volume: 147 mL Cortical Thickness (if discernible): 1.7 cm (>6mm is normal) There is an 8 mm x 10 mm x 4 mm nonobstructive left intrarenal calculus. US/Kidney and Bladder IMPRESSION: Fullness of the right renal pelvis. 8 mm x 10 mm x 4 mm nonobstructive left intrarenal calculus. Reading Location: [id number]
== END | disposition home or self-care (01) ==
LOC: US 16:59
PROVIDERS: PCP Family Medicine; Referring Provider Urology; Visit Provider Urology
DX: N39.0 Urinary tract infection, site not specified (principal)
CPT/HCPCS: 76770

== ENCOUNTER → 2024-09-18 | Outpatient (CLI) | payer MEDICARE, MEDICAID, SELFPAY ==
--- NOTE | 2024-09-18 08:30 | CT_ITS ---
PROCEDURE: ABDOMEN/PELVIS WITHOUT CONT 09/18/2024 REASON FOR EXAM: KIDNEY STONE TECHNIQUE: Abdomen and pelvis CT without intravenous contrast. Noncontrast technique limits evaluation of the abdominal and pelvic viscera. Coronal and Sagittal reconstruction series were provided. One or more dose reduction techniques were used (e.g., Automated exposure control, adjustment of the mA and/or kV according to patient size, use of iterative reconstruction technique). COMPARISON: Ultrasound from 09/01/2024 FINDINGS: Limited sections of the lung bases demonstrate no focal pulmonary mass. The liver, spleen, pancreas, and both adrenal glands demonstrate no acute findings. 1.4 x 1.4 cm hypodensity within the liver likely a cyst. Multiple large coarse stones within the left kidney and proximal ureter measuring 1.6 x 0.7 cm and 1.2 x 0.9 cm without definite left sided hydronephrosis. These large stones are likely nonobstructive or partially obstructive. The right collecting system is unremarkable. The gallbladder contains a tiny gallstone. No CT evidence of acute cholecystitis. Small hiatal hernia; otherwise stomach is unremarkable. The aorta and IVC demonstrate no acute findings. Moderate to extensive atherosclerosis of the abdominal vasculature. There is no free air, free fluid or intestinal obstruction. The small bowel loops are not dilated. The appendix is normal. No bowel obstruction. Extensive colonic diverticulosis without acute diverticulitis. Mesenteric stranding with prominent mesenteric lymph nodes may reflect panniculitis. The pelvic structures are intact. There is no solid pelvic mass. Pelvic pessary is noted. The urinary bladder is distended. Visualized osseous structures demonstrate no acute abnormality. Tiny fat containing anterior pelvic hernia. CT/Abdomen/Pelvis without Cont IMPRESSION: Multiple large coarse stones within the left kidney and proximal ureter measuri ng 1.6 x 0.7 cm and 1.2 x 0.9 cm without definite left sided hydronephrosis. These large stones are likely nonobstructive or at m ost partially obstructive. Extensive colonic diverticulosis without acute diverticulitis. No bowel obstru ction. Mesenteric stranding with prominent mesenteric lymph nodes may reflect pannicul itis. Reading Location: [id number]
== END | disposition home or self-care (01) ==
LOC: CT 08:17
PROVIDERS: PCP Family Medicine; Referring Provider Urology; Visit Provider Urology
DX: N20.0 Calculus of kidney (principal)
CPT/HCPCS: 74176

== ENCOUNTER → 2024-09-30 | Outpatient (CLI) | payer MEDICARE, MEDICAID, SELFPAY ==
--- NOTE | 2024-09-30 15:04 | RAD_ITS ---
PROCEDURE: ABDOMEN SINGLE VIEW 09/30/2024 REASON FOR EXAM: KUB- KIDNEY STONES TECHNIQUE: Single view abdomen. COMPARISON: 09/18/2024. FINDINGS: Left renal/proximal ureteral stones are again noted with the largest measuring 1.6 cm. 8 mm calcification/stone is noted at the topography of the left sacral ala at S1 level. Moderate amount of fecal residue in the large bowels. Normal visualized lung bases. There is an unremarkable bowel gas pattern. There is no demonstrated free abdominal air. Normal visualized liver. Normal visualized spleen. Normal visualized kidneys. The soft tissue structures of the pelvis are unremarkable. Moderate diffuse spondylosis. RAD/Abdomen Single View IMPRESSION: Left renal/proximal ureteral stones are again noted with the largest measuring 1.6 cm. 8 mm calcification/stone is noted at the topography of the left sacral ala at S 1 level. Moderate amount of fecal residue in the large bowels. Reading Location[facility]
== END | disposition home or self-care (01) ==
LOC: MTRAD 15:03
PROVIDERS: PCP Family Medicine; Referring Provider Urology; Visit Provider Urology
DX: N20.0 Calculus of kidney (principal)
CPT/HCPCS: 74018

== ENCOUNTER → 2024-10-28 | Outpatient (CLI) | payer MEDICARE, MEDICAID, SELFPAY ==
[2024-10-28 17:49] LABS: Hematocrit 39.7 % (37-47); Hemoglobin 12.9 g/dL (12.0-15.0); Immature Granulocytes Count 0.010 X10^3/uL (0.0-0.0); Mean Corp Hgb Conc 32.5 g/dL (32-36); Mean Corpuscular Volume 89.4 fL (81-99); Mean Platelet Vol. 11.5 fl (6.2-12.0); NRBC Flagged by Analyzer 0 % (0-5); Platelet Count 278 K/mm3 (150-450); RBC Distribution Width CV 14.2 % (11.6-14.6); RBC Distribution Width SD 45.8 fl (35.1-43.9); Red Blood Count 4.44 M/mm3 (4.2-5.4); White Blood Count 6.8 K/mm3 (4.4-11.0)
[2024-10-28 18:20] LABS: Cholesterol 163 mg/dL (<=200); Low Density Lipoprotein Calc. 83 mg/dL; Magnesium 2.2 mg/dL (1.5-2.2); Triglycerides 172 mg/dL; Very Low Density Lipoprotein 34 mg/dL (5-40); Vitamin D,25 Hydroxy 37.4 ng/mL (30-100); cholesterol:hdl ratio screen 3.58
[2024-10-28 18:39] LABS: AST(SGOT) 22 U/L (<=31); Alanine Aminotransfer ALT/SGPT 21 U/L (<=34); Albumin, Serum 4.3 g/dL (3.4-4.8); Alkaline Phosphatase 60 U/L (35-104); Anion Gap 12 (5-15); BUN 11 mg/dL (4-19); BUN/Creat Ratio 14.4 RATIO (10-20); Calcium,Total 9.3 mg/dL (7.6-11.0); Carbon Dioxide 22.9 mmol/L (21.0-32.0); Chloride 109 mmol/L (98-108); Globulin 2.9 g/dL (2.2-4.2); Glucose 95 mg/dL (70-99); Potassium 3.9 mmol/L (3.3-5.1)
== END | disposition home or self-care (01) ==
LOC: MFPLAB 14:10
PROVIDERS: PCP Family Medicine; Referring Provider Family Medicine; Visit Provider Family Medicine
DX: I10 Essential (primary) hypertension (principal); E78.5 Hyperlipidemia, unspecified; E55.9 Vitamin D deficiency, unspecified
CPT/HCPCS: 36415; 80053; 80061; 82306; 83735; 85025

== ENCOUNTER 2024-11-26 10:28 | Day surgery (SDC) | payer MEDICARE, MEDICAID, SELFPAY ==
--- NOTE | 2024-11-17 13:28 | EKG12_ITS ---
Test Reason : PRE-OP Blood Pressure : */* mmHG Vent. Rate : 62 BPM Atrial Rate : 62 BPM P-R Int : 158 ms QRS Dur : 88 ms QT Int : 428 ms P-R-T Axes : 9 -8 21 degrees QTcB Int : 434 ms Normal sinus rhythm Nonspecific ST and T wave abnormality Abnormal ECG Confirmed by BERYL PADILLA, KESHIA ([id number]), newspaper photo editor LANDEN CONNOR ([id number]) on 11/18/2024 8:38:55 AM Referred By: Yanira Barahona Confirmed By: KESHIA CORDOBA MD
--- NOTE | 2024-11-20 19:53 | PAT.ANESEVAL ---
Pre-Assessment Diagnosis/Proposed Procedure Planned Operative Procedure(s): CYSTO LEFT RENAL ESWL LEFT STENT INSERTION Anesthesia History Anesthesia History - sports marketing specialist: Anesthesia History - sports marketing specialist Hx Hospitalization No 11/12/24 10:47 Any Problems With Anesthesia No 11/12/24 10:47 Cholinesterase deficiency No 11/12/24 10:47 You/Your Family Experience No 11/12/24 10:47 fever (hyperthermia) with Relationship Recent Exposure to Contagious No 10/07/23 08:00 Disease Does patient have nerve No 11/12/24 10:47 stimulator Patient instructed to have device shut off --Does patient have Pacemaker or ICD? When Was Last Pacemaker Check QUESTION #4 FULL TEXT: You/Your Family Experience fever (hyperthermia) with Anesthesia Last Oral Intake Last Oral intake: Last Oral Intake NPO since Meds taken in AM with sips of water? Meds patient instructed to take am of surgery PONV PONV - sports marketing specialist: PONV - sports marketing specialist Female Yes 11/12/24 10:47 HX of Motion Sickness No 11/12/24 10:47 HX of N/V After Surgery No 11/12/24 10:47 Non-Smoker Yes 11/12/24 10:47 Duration of Surgery greater Yes 11/12/24 10:47 than 60 minutes Number of Risk Factors 3 11/12/24 10:47 PONV Score Moderate Risk 11/12/24 10:47 Height & Weight Height & Weight: Anesthesia: Height & Weight Height 5 ft 10/07/23 08:00 Respiratory Assessment Respiratory Assessment - sports marketing specialist: Respiratory Tract Infection Hx - sports marketing specialist Hx Respiratory Tract Infection No 11/12/24 10:47 STOP Sleep Apnea STOP Sleep Apnea - sports marketing specialist: STOP Sleep Apnea - sports marketing specialist Hx Hypertension Yes: CONTROLLED WITH MED 11/12/24 10:47 Hx Sleep Apnea No 11/12/24 10:47 CPAP No 10/07/23 09:25 BIPAP Do you snore loudly (louder No 11/12/24 10:47 than talking or can be heard Do you often feel tired/ No 11/12/24 10:47 fatigued/ sleepy during daytime? Has anyone observed you stop No 11/12/24 10:47 breathing during sleep? STOP Results Negative 11/12/24 10:47 QUESTION #5 FULL TEXT : Do you snore loudly (louder than talking or can be heard through closed doors)? Tobacco Use History Tobacco Use History - sports marketing specialist: Tobacco Use History - sports marketing specialist Tobacco Use Smoking Status Former smoker 11/12/24 10:47 Hx Tobacco Use No 11/12/24 10:47 Years Smoking Packs Smoked per Day Smoking Cessation Date was No - quit smoking greater 11/12/24 10:47 within the last 15 years than 15 years ago Hx Smoking Cessation Date 09/20/76 11/12/24 10:47 Hx Smoking Cessation No 11/12/24 10:47 Counseling Hematologic Medial History Hematologic Hx - sports marketing specialist: Hematologic Medical Hx - registered nurse maternal child Hx of Blood Transfusion Yes 11/12/24 10:47 Hx of Transfusion in last 3 No 11/12/24 10:47 Months Date of Last Transfusion (if within last 3 months) Ever experience any problems No 11/12/24 10:47 with transfusion(s)? Specify any problems Hx of Preganancy in last 3 No 11/12/24 10:47 Months Nurse Filling Out Transfusion DSCHRIBER 11/12/24 10:47 & Questions: Date: 11/12/24 11/12/24 10:47 Time: 10:49 11/12/24 10:47 Patient unable to answer at this time (ie. confused, unrespo /Reproduction History /Reproductive History - sports marketing specialist: /Reproductive Hx- sports marketing specialist Hx Now No 11/12/24 10:47 Gestational Age (in weeks): EDC: Hx Hx Para Hx Section SAB No 11/12/24 10:47 [facility] Medical History (Updated 11/20/24 @ 16:51 by Zofia Sykes) Osteoporosis Degenerative disc disease Coagulation disorder Presence of pessary Loss of hearing Post-menopausal Bladder disease Arthritis High cholesterol Back pain History of hiatal hernia Gastric reflux History of edema History of echocardiogram Wears glasses History of GI bleed Former smoker Anemia Fracture of talus of right ankle, closed 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, bilateral lower limbs Home Medications ?Medication ?Instructions ?Recorded ?Last Taken ?Type omeprazole 20 mg delayed 20 mg PO DAILY ##90 07/19/20 10/07/23 Rx release,disintegrating tablet alendronate 70 mg tablet (Fosamax) 70 mg PO QWEEK 08/12/23 Unknown History calcium carbonate (Calcium 600) 600 mg PO DAILY 08/12/23 Unknown History cholecalciferol (vitamin D3) 125 125 mcg PO DAILY 08/12/23 Unknown History mcg (5,000 unit) capsule amlodipine 5 mg tablet 5 mg PO QHS 11/12/24 Unknown History [id number] 8 mg-folic 400 1 tab PO DAILY 11/12/24 Unknown History mcg-K 50 mcg-lutein 300 mcg tablet (Centrum Silver Women) rosuvastatin 10 mg tablet 10 mg PO QHS 11/12/24 Unknown History estradiol 0.01% (0.1 mg/gram) 1 g vaginal 3XW 3 months #42.5 11/20/24 Unknown Rx vaginal cream grams Allergy/AdvReac Type Severity Reaction Status Date / Time No Known Allergies Allergy Verified 11/20/24 16:21 Family History (Updated 11/16/24 @ 16:18 by Zofia Sykes) Father Hypertension Mother CVA (cerebral vascular accident) Other Cancer Surgical History (Updated 11/16/24 @ 16:18 by Zofia Sykes) H/O: hysterectomy History of ankle surgery H/O adenoidectomy Hx of colonoscopy History of cataract extraction with lens replacement Hx of tonsillectomy History of ectopic Hx of lithotripsy Hx of bladder repair surgery Social History (Updated 11/16/24 @ 16:18 by Zofia Sykes) Smoking Status: Former smoker second hand exposure: No alcohol intake: never substance use type: does not use caffeine: Yes what type of physical activity do you participate in: none frequency: does not exercise do you feel safe at home: Yes Audit: Pertinent Findings Pertinent Findings EKG Perinent findings: November 17, 2024. Normal sinus rhythm. Nonspecific ST and T wave abnormality. Echo (EF%) pertinent findings: Generally 03/11/2021. EF is 60%. PASP is 24 mmHg. No aortic valve stenosis noted. Recommendation Anesthesia Recommendation Anesthesia recommendation: OPTIMIZED for anesthesia
[2024-11-26] VITALS (8 sets, daily range): BP systolic 138–155; BP diastolic 74–92; PULSE 54–67; RESP 16–18; TEMP 36–36.6; O2SAT 96–100; BMI 25.8
--- NOTE | 2024-11-26 11:16 | PRE.ANES_ITS ---
ASA Classification* ASA Classification ASA Classification: 3 Assessment & Plan Anesthesia* Anesthesia Assessment Anesthesia Assessment: Discussed sedation and/or anesthesia options, risks, benefits, and alternatives with patient/parents/legal guardian/POA. Questions invited. The patient/parents/legal guardian/POA seems to understand and agrees to proceed with anesthesia plan. Reviewed the physical assessment, medical history, allergy history and patient home medications list prior to surgery/procedure/anesthetic and documented any changes. Performed airway and anesthesia risk assessments. Anesthesia Type Anesthesia Type: General (hiatal hernia, rapid sequence induction) Anesthesia Focused Assessment* Airway Assessment Mouth opens: >3 cm Mallampati Score: III Labs Anesthesia Preop lab: CBC WBC 6.8 K/mm3 (4.4-11.0) 10/28/24 14:10 10/28/24 RBC 4.44 M/mm3 (4.2-5.4) 10/28/24 14:10 10/28/24 Hgb 12.9 g/dL (12.0-15.0) 10/28/24 14:10 10/28/24 Hct 39.7 % (37-47) 10/28/24 14:10 10/28/24 Plt Count 278 K/mm3 (150-450) 10/28/24 14:10 10/28/24 CHEMISTRY Potassium 3.9 mmol/L (3.3-5.1) 10/28/24 14:10 10/28/24 Sodium 143 mmol/L (133-145) 10/28/24 14:10 10/28/24 Magnesium 2.2 mg/dL (1.5-2.2) 10/28/24 14:10 10/28/24 BUN 11 mg/dL (4-19) 10/28/24 14:10 10/28/24 Creatinine 0.73 mg/dL (0.70-1.20) 10/28/24 14:10 10/28/24 Glucose 95 mg/dL (70-99) 10/28/24 14:10 10/28/24 TSH 1.030 uIU/mL (0.358-3.740) 01/14/24 14:41 12/22 08/13 COAG PT 13.8 SECONDS (11.7-14.9) 05/01/20 00:26 Pre-Assessment Diagnosis/Proposed Procedure Planned Operative Procedure(s): CYSTO LEFT RENAL ESWL LEFT STENT INSERTION Anesthesia History Anesthesia History - bladder blower: Anesthesia History - bladder blower Hx Hospitalization No 11/12/24 10:47 Any Problems With Anesthesia No 11/12/24 10:47 Cholinesterase deficiency No 11/12/24 10:47 You/Your Family Experience No 11/12/24 10:47 fever (hyperthermia) with Relationship Recent Exposure to Contagious No 10/07/23 08:00 Disease Does patient have nerve No 11/12/24 10:47 stimulator Patient instructed to have device shut off --Does patient have Pacemaker or ICD? When Was Last Pacemaker Check QUESTION #4 FULL TEXT: You/Your Family Experience fever (hyperthermia) with Anesthesia Last Oral Intake Last Oral intake: Last Oral Intake NPO since Meds taken in AM with sips of water? Meds patient instructed to take am of surgery PONV PONV - bladder blower: PONV - bladder blower Female Yes 11/12/24 10:47 HX of Motion Sickness No 11/12/24 10:47 HX of N/V After Surgery No 11/12/24 10:47 Non-Smoker Yes 11/12/24 10:47 Duration of Surgery greater Yes 11/12/24 10:47 than 60 minutes Number of Risk Factors 3 11/12/24 10:47 PONV Score Moderate Risk 11/12/24 10:47 Height & Weight Height & Weight: Anesthesia: Height & Weight Height 5 ft 11/20/24 16:22 Respiratory Assessment Respiratory Assessment - bladder blower: Respiratory Tract Infection Hx - bladder blower Hx Respiratory Tract Infection No 11/12/24 10:47 STOP Sleep Apnea STOP Sleep Apnea - bladder blower: STOP Sleep Apnea - bladder blower Hx Hypertension Yes: CONTROLLED WITH MED 11/12/24 10:47 Hx Sleep Apnea No 11/12/24 10:47 CPAP No 10/07/23 09:25 BIPAP Do you snore loudly (louder No 11/12/24 10:47 than talking or can be heard Do you often feel tired/ No 11/12/24 10:47 fatigued/ sleepy during daytime? Has anyone observed you stop No 11/12/24 10:47 breathing during sleep? STOP Results Negative 11/12/24 10:47 QUESTION #5 FULL TEXT : Do you snore loudly (louder than talking or can be heard through closed doors)? Tobacco Use History Tobacco Use History - bladder blower: Tobacco Use History - bladder blower Tobacco Use Smoking Status Former smoker 11/16/24 16:18 Hx Tobacco Use No 11/12/24 10:47 Years Smoking Packs Smoked per Day Smoking Cessation Date was No - quit smoking greater 11/12/24 10:47 within the last 15 years than 15 years ago Hx Smoking Cessation Date 09/20/76 11/12/24 10:47 Hx Smoking Cessation No 11/12/24 10:47 Counseling Hematologic Medial History Hematologic Hx - bladder blower: Hematologic Medical Hx - rn clinical documentation specialist Hx of Blood Transfusion Yes 11/12/24 10:47 Hx of Transfusion in last 3 No 11/12/24 10:47 Months Date of Last Transfusion (if within last 3 months) Ever experience any problems No 11/12/24 10:47 with transfusion(s)? Specify any problems Hx of Preganancy in last 3 No 11/12/24 10:47 Months Nurse Filling Out Transfusion DSCHRIBER 11/12/24 10:47 & Questions: Date: 11/12/24 11/12/24 10:47 Time: 10:49 11/12/24 10:47 Patient unable to answer at this time (ie. confused, unrespo /Reproduction History /Reproductive History - bladder blower: /Reproductive Hx- bladder blower Hx Now No 11/12/24 10:47 Gestational Age (in weeks): EDC: Hx Hx Para Hx Section SAB No 11/12/24 10:47 Active Medications Active Medications: Current Medications Generic Name Dose Route Start Last Admin Trade Name Freq PRN Reason Stop Dose Admin Cefazolin Sodium 2 gm/ Sodium 110 mls @ 200 mls/hr 11/26/24 12:05 Chloride IV 11/26/24 12:37 INTRAOP ONE Lactated Ringer's 1,000 mls @ 15 mls/hr 11/26/24 10:45 IV .Q48H HUSAM PFSH Medical History Cystocele, midline Vaginal atrophy Urinary frequency Osteoporosis Degenerative disc disease Coagulation disorder Presence of pessary Loss of hearing Post-menopausal Bladder disease Arthritis High cholesterol Back pain History of hiatal hernia Gastric reflux History of edema History of echocardiogram Wears glasses History of GI bleed Former smoker Anemia Fracture of talus of right ankle, closed 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, bilateral lower limbs Home Medications ?Medication ?Instructions ?Recorded ?Last Taken ?Type omeprazole 20 mg delayed 20 mg PO DAILY ##90 07/19/20 11/26/24 07:30 Rx release,disintegrating tablet alendronate 70 mg tablet (Fosamax) 70 mg PO QWEEK 07/22 06/15 Unknown History calcium carbonate (Calcium 600) 600 mg PO DAILY Unknown History cholecalciferol (vitamin D3) 125 125 mcg PO DAILY 07/22 06/15 Unknown History mcg (5,000 unit) capsule amlodipine 5 mg tablet 5 mg PO QHS 11/12/24 Unknown History hvrnyuwb-ievp-ivqa 8 mg-folic 400 1 tab PO DAILY 11/12 Unknown History mcg-K 50 mcg-lutein 300 mcg tablet (Centrum Silver Women) rosuvastatin 10 mg tablet 10 mg PO QHS 11/12/24 Unknow n History estradiol 0.01% (0.1 mg/gram) 1 g vaginal 3XW 3 months #42.5 11/20/24 Unknown Rx vaginal cream grams levofloxacin 500 mg tablet 500 mg PO QDAY #7 tabs 08/14 Unknown Rx Allergy/AdvReac Type Severity Reaction Status Date / Time No Known Allergies Allergy Verified 11/26/24 11:15 Family History Father Hypertension Mother CVA (cerebral vascular accident) Other Cancer Surgical History H/O: hysterectomy History of ankle surgery H/O adenoidectomy Hx of colonoscopy History of cataract extraction with lens replacement Hx of tonsillectomy History of ectopic Hx of lithotripsy Hx of bladder repair surgery Social History Smoking Status: Former smoker second hand exposure: No alcohol intake: never substance use type: does not use caffeine: Yes what type of physical activity do you participate in: none frequency: does not exercise do you feel safe at home: Yes Review of Systems (Anesthesia) ROS Narrative System reviewed and no additional complaints, except as documented.
[2024-11-26] MEDS: Lactated Ringers 1,000 ML 15 ML IV ×2 (11:19→14:51)
--- NOTE | 2024-11-26 12:49 | EX.PCM.DISCH ---
Discharge Instructions Diet Discharge Diet: No restrictions Activity Discharge Activity: Return to Normal Activity Dressing / Incision Call your doctor if you observe: Fever of 101 or Higher, Inability to urinate and Inability to have a bowel movement Follow Up Care Please Follow Up With: Yanira Barahona MD When: The office will call to make follow-up arrangements Test Results: Test results from this visit will be discussed in further detail at your follow-up appointment, if applicable. Discharge Plan Admission Attending Provider: Yanira Barahona Primary Care Provider: Clyde Linda Instructions Print Language: Gabonese Discharge Orders/Prescriptions Prescriptions: New phenazopyridine 200 mg tablet 200 mg PO TID PRN (Reason: pain) Qty: 30 3RF oxycodone-acetaminophen 5-325 mg tablet 1 tab PO Q8H PRN (Reason: pain) 3 Days Qty: 10 0RF ondansetron 4 mg tablet,disintegrating 4 mg PO Q8H PRN (Reason: nausea and vomiting) Qty: 10 0RF Continued alendronate [Fosamax] 70 mg tablet 70 mg PO QWEEK cholecalciferol (vitamin D3) 125 mcg (5,000 unit) capsule 125 mcg PO DAILY calcium carbonate [Calcium 600] 600 mg calcium (1,500 mg) tablet 600 mg PO DAILY estradiol 0.01 % (0.1 mg/gram) cream 1 g vaginal 3XW 90 Days Qty: 42.5 3RF omeprazole 20 MG tablet,disintegrat, delay rel 20 mg PO DAILY Qty: 90 3RF Centrum Silver Women 8 mg iron-400 mcg-50 mcg tablet 1 tab PO DAILY amlodipine 5 mg tablet 5 mg PO QHS rosuvastatin 10 mg tablet 10 mg PO QHS levofloxacin 500 mg tablet 500 mg PO QDAY Qty: 7 0RF Referrals / Follow Up: Clyde Linda MD [Primary Care Provider] - Disposition Disposition (needs filled in before D/C Order can be placed): Home, Self Care
--- NOTE | 2024-11-26 12:51 | OP.PCM_ITS ---
Operative Report (Standard) Operative Information Date of Procedure: 11/26/24 Pre-Operative Diagnosis: Left renal and ureteropelvic junction stones and hydronephrosis Post-Operative Diagnosis: Same Surgery/Procedure Performed: Cystoscopy with left ureteral stent insertion, left renal extracorporal shockwave lithotripsy ben day artist: No Type of Anesthesia: General RN Documented Start/Stop Times: Operation Date: 11/26/24 12:05 Case Time Into Pre-Op 11/26/24 10:40 Out of Pre-Op 11/26/24 12:45 Anesthesia Start 11/26/24 12:55 Into Room 11/26/24 12:55 Procedure Start 11/26/24 13:07 Procedure End 11/26/24 14:11 Procedure Start Time: 13:07 Procedure Stop Time: 14:11 Select all DRAINS/GRAFTS/IMPLANTS that apply: Drains Drain details: 6 American by 22 cm JJ stent Estimated Blood Loss: <5cc Specimen collected: No Description of surgery: The patient is a 74-year-old female with large left renal and ureteropelvic junction stones who presents for definitive management. Informed consent was obtained. The patient was taken to the operating room and placed on the operating room table. Anesthesia monitored the head, neck, airway, IV access and vital signs throughout the case. Once anesthesia was appropriately administered, she was placed into dorsal lithotomy position and was prepped and draped in usual sterile fashion. The cystoscope was inserted through the urethra under direct visualization into the urinary bladder. The bladder mucosa revealed no evidence of mass, erythema, ulceration or foreign body. The left ur eteral orifice was intubated with a 0.035 Glidewire which passed into the renal pelvis as seen on fluoroscopy. A 6 American 22 cm JJ stent was placed over the Glidewire and was positioned into the renal pelvis with good curling in the urinary bladder. At this time the bladder was emptied and the cystoscope was removed. The patient was repositioned on the table. The distal aspect of the UPJ stone was shocked with 3000 shocks. It appeared to be fragmented at the conclusion of the case. The patient was then awakened and taken to the recovery room in good condition. There were no complications during the procedure. Surgical Findings: Large left stone burden Complications Complications: No Admit VTE Documentation VTE Present on Admission: Yes VTE Mechan Device Prophylaxis: SCD's VTE Pharm Prophylaxis ordered?: No Reason prophylaxis not ordered: Treatment Not Indicated
[2024-11-26] MEDS: Lactated Ringers 1,000 ML 1000 ML IV (12:54)
[2024-11-26] MEDS: Cefazolin 1 GM/5 ML Vial 2 GM IV (12:55)
[2024-11-26] MEDS: fentaNYL 100 MCG/2 ML Ampul IV (13:00)
--- NOTE | 2024-11-26 14:19 | PCM.POST.ANE ---
Anesthesia: Postop Eval I Current Vital Signs Temperature: 98 F Pulse Rate: 55 Blood Pressure: 140/82 Respiratory Rate: 16 Pulse Ox: 98 Oxygen Delivery Method: Room Air Assessment Airway patent: Yes Spontaneous unlabored respirations: Yes Mental status: Awake and Calm nausea: No Vomiting: No Anesthesia Complication: No Fluid Hydration Crystalloid volume administer (ml): 800 Total IV fluid infused: 800 Progress Note Anesthesia document: Postop Eval 1 completed: Yes
--- NOTE | 2024-11-26 15:12 | POSTOPAN2_ITS ---
Anesthesia Postop Eval I Sum Postop Eval Completion status Anesthesia document: Postop Eval 1 completed: Yes Anesthesia Postop Eval I Summary Anesthesia Postop Eval I Summary: Anesthesia Postop Eval I: Assessment Summary Airway patent Yes 11/26/24 14:20 [email or web address] Spontaneous unlabored Yes 11/26/24 14:20 [employer] [email or web address] respirations Mental status Awake,Calm 11/26/24 14:20 [email or web address] nausea No 11/26/24 14:20 [email or web address] Vomiting No 11/26/24 14:20 [employer] [email or web address] Anesthesia Postop Eval I: Fluid Summary Crystalloid volume administer 800 11/26/24 14:20 [employer] [email or web address] (ml) Colloids volume administered ( ml) Blood Product volume administered (ml) Total IV fluid infused 800 11/26/24 14:20 [employer] [email or web address] Anesthesia Postop Eval I: Summary Notes Anesthesia Complication No 11/26/24 14:20 [employer] [email or web address] Anesthesia Complication Comment: Post-operative progress note Anesthesia: Postop Eval II Evaluation Mental status: Awake Pain Level: 0 nausea: No Vomiting: No
--- NOTE | 2024-11-26 15:12 | PCM.POSTANE2 ---
Anesthesia Postop Eval I Sum Postop Eval Completion status Anesthesia document: Postop Eval 1 completed: Yes Anesthesia Postop Eval I Summary Anesthesia Postop Eval I Summary: Anesthesia Postop Eval I: Assessment Summary Airway patent Yes 11/26/24 14:20 TRADE [email or web address] Spontaneous unlabored Yes 11/26/24 14:20 TRADE [email or web address] respirations Mental status Awake,Calm 11/26/24 14:20 TRADE [email or web address] nausea No 11/26/24 14:20 TRADE [email or web address] Vomiting No 11/26/24 14:20 TRADE [email or web address] Anesthesia Postop Eval I: Fluid Summary Crystalloid volume administer 800 11/26/24 14:20 TRADE [email or web address] (ml) Colloids volume administered ( ml) Blood Product volume administered (ml) Total IV fluid infused 800 11/26/24 14:20 TRADE [email or web address] Anesthesia Postop Eval I: Summary Notes Anesthesia Complication No 11/26/24 14:20 TRADE [email or web address] Anesthesia Complication Comment: Post-operative progress note Anesthesia: Postop Eval II Evaluation Mental status: Awake Pain Level: 0 nausea: No Vomiting: No
--- NOTE | 2024-12-03 09:06 | PCM.HP.BLA ---
History and Physical Date of Admission: 11/26/24 Intake Vital Signs 10/07/2407:00 11/21/2515:22 Height 5 ft 5 ft Weight: 140 lb BMI 27.3 BP 138/90 H Pulse 62 Intake Visit Reasons: PRE OP URINE/SIGNED CONSENT Chief Complaint: preoperative visit with urine and consent [employer] Required: No Accompanied by: Self Is patient in pain?: No Allergies No Known Allergies Allergy (Verified 11/20/24 16:21) Medications ?Medication ?Instructions ?Recorded ?Confirmed ?Type omeprazole 20 mg delayed 20 mg PO DAILY ##90 07/19/20 11/20/24 Rx release,disintegrating tablet alendronate 70 mg tablet (Fosamax) 70 mg PO QWEEK 08/12/23 11/20/24 History calcium carbonate (Calcium 600) 600 mg PO DAILY 08/12/23 11/20/24 History cholecalciferol (vitamin D3) 125 125 mcg PO DAILY 08/12/23 11/20/24 History mcg (5,000 unit) capsule amlodipine 5 mg tablet 5 mg PO QHS 11/12/24 11/20/24 History lnsrqbxw-pjio-beoz 8 mg-folic 400 1 tab PO DAILY 11/12/24 11/20/24 History mcg-K 50 mcg-lutein 300 mcg tablet (Centrum Silver Women) rosuvastatin 10 mg tablet 10 mg PO QHS 11/12/24 11/20/24 History estradiol 0.01% (0.1 mg/gram) 1 g vaginal 3XW 3 months #42.5 11/20/24 11/20/24 Rx vaginal cream grams levofloxacin 500 mg tablet 500 mg PO QDAY #7 tabs 11/23/24 Rx Have you fallen in the past year?: No PFSH Medical History (Updated 11/25/24 @ 17:[address] Yanira Barahona MD) Cystocele, midline Vaginal atrophy Urinary frequency Osteoporosis Degenerative disc disease Coagulation disorder Presence of pessary Loss of hearing Post-menopausal Bladder disease Arthritis High cholesterol Back pain History of hiatal hernia Gastric reflux History of edema History of echocardiogram Wears glasses History of GI bleed Former smoker Anemia Fracture of talus of right ankle, closed 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, bilateral lower limbs Surgical History H/O: hysterectomy History of ankle surgery H/O adenoidectomy Hx of colonoscopy History of cataract extraction with lens replacement Hx of tonsillectomy History of ectopic Hx of lithotripsy Hx of bladder repair surgery Family History Father HypertensionMother CVA (cerebral vascular accident)Other Cancer Social History Smoking Status: Former smoker second hand exposure: No alcohol intake: never substance use type: does not use caffeine: Yes what type of physical activity do you participate in: none frequency: does not exercise do you feel safe at home: Yes HPI HPI Urology Chief Complaint: preoperative visit with urine and consent Details: SUELLEN LONG, is a 74 F. The patient is here for preoperative history and physical prior to cystoscopy with left ureteral stent insertion and left renal scheduled extracorporeal shockwave lithotripsy. There are no new symptoms since the last visit. The procedure, recovery and expectations were explained. The risks, benefits and alternatives were discussed, including but not limited to, the risks of anesthesia, bleeding, infection, injury, pain and the need for further intervention. We have discussed the risk of exposure to and/or potential harm posed by the COVID-19 virus with having a surgery/procedure at this time. A joint decision was made at this time to proceed with the scheduled surgery/procedure as indicated on the consent form. ROS Const Constitutional: No chills, fatigue, fever(s), headache(s), night sweats, weakness, weight change, abnormal sleep pattern or change in appetite Eyes Eyes: No change in vision ENT ENT: No headache(s) or dry mouth Resp Respiratory: No cough, chest congestion, shortness of breath or wheezing Cardio Cardiology: Positive for other (No chest pain.); No shortness of breath, irregular heart rhythm or lightheadedness Gastro GI: Positive for other (No nausea.); No abdominal pain, change in bowel habits, constipation, diarrhea or vomiting Musc Musculoskeletal: No abnormal gait Skin Skin: No yellowing of the eye, lesions, itchy eyes, rash or skin ulcer Neuro Neurology: No abnormal gait, confusion, dizziness, weakness, headache(s) or memory loss Psych Psychiatric: No abnormal sleep pattern, No change in appetite, No confusion and No memory loss Endo Endocrine: No fatigue, increased thirst/drinking or weight change Aller/Imm Allergy/Immunologic: No itchy eyes or wheezing Ryne/Lymp Hematologic/Lymphatic: No easy bleeding, easy bruising or enlarged lymph nodes Exam Const General: cooperative, healthy appearing, comfortable and no acute distress [facility] Head: normocephalic and atraumatic Ears: hearing grossly normal bilaterally and external ears normal Nose: external nose normal Eyes General: appearance normal, both eyes and all related structures Neck Neck: normal visual inspection and trachea midline Chest Chest palpation & inspection: normal inspection of the chest Resp Effort & Inspection: normal respiratory effort, able to speak in complete sentences and symmetric chest movement Cardio Rate: regular rate GI Inspection: normal to inspection Palpation: soft and nontender General: No CVA tenderness Skin General: no rashes or lesions noted Neuro General: patient alert, patient awake, patient oriented x3 and CN's II-XI intact bilaterally Extrem General: normal to inspection Psych Appearance: grossly normal and well kempt Mental Status: mental status grossly normal Results POC UA Auto w/o Microscopy Office Urine Color ? Last Edit by Zofia Sykes on 11/20/24 16:52 Office Urine Clarity ? Last Edit by Zofia Sykes on 11/20/24 16:52 Office Urine Glucose Negative Last Edit by Zofia Sykes on 11/20/24 16:52 Office Urine Ketones Negative Last Edit by Zofia Sykes on 11/20/24 16:52 Office Urine Bilirubin Negative Last Edit by Zofia Sykes on 11/20/24 16:52 Office Urine Urobilinogen Negative Last Edit by Zofia Sykes on 11/20/24 16:52 Off Ur Spec [place] 1.020 Last Edit by Zofia Sykes on 11/20/24 16:52 Office Urine pH 5 Last Edit by Zofia Sykes on 11/20/24 16:52 Office Urine Protein 1+ Last Edit by Zofia Sykes on 11/20/24 16:52 Office Urine Blood Small Last Edit by Zofia Sykes on 11/20/24 16:52 Office Urine Blood Hemolyzed Negative Last Edit by Zofia Sykes on 11/20/24 16:52 Office Urine Nitrate Positive Last Edit by Zofia Sykes on 11/20/24 16:52 Off Ur Leukocytes Positive Last Edit by Zofia Sykes on 11/20/24 16:52 Supplemental Info EKG was read as abnormal will need further investigation. Coding Level of Care Code Off vis,est,level 4 Diagnoses Urinary tract infection N39.0 Kidney stones N20.0 Urinary frequency R35.0 Vaginal atrophy N95.2 Cystocele, midline N81.11 Assessment and Plan Assessment and Plan (1) Urinary tract infection: Status: Acute (2) Kidney stones: Status: Acute (3) Urinary frequency: Status: Acute (4) Vaginal atrophy: Status: Acute (5) Cystocele, midline: Status: Acute Orders: Orders POC UA Auto w/o Microscopy 11/20/24 N20.0 - Calculus of kidney Medications: New estradiol 0.01%(0.1mg/gram) 1 g vaginal 3XW 42.5 grams 3RF 3 months Patient Instructions: urine culture Investigation of abnormal EKG, patient is asymptomatic at this time hold on OR until EKG evaluated/seen by primary care or cardiology infection prevention and add vaginal estrogen cream Clinical Quality Measures Falls Risk Screening/Assistive Devices Have you fallen in the past year?: No 11/25/24 1712 <Electronically signed by Yanira Barahona MD> Date Yanira Barahona MD
== END 2024-11-26 15:54 | disposition home or self-care (01) ==
LOC: SDC 10:29 → AC 10:30
PROVIDERS: PCP Family Medicine; Referring Provider Urology; Visit Provider Urology
PROC: (CPT 50590; principal; 2024-11-26 11:55)
DX: N13.2 Hydronephrosis with renal and ureteral calculous obstruction (principal); N81.11 Cystocele, midline; R35.0 Frequency of micturition; Z87.891 Personal history of nicotine dependence; Z86.718 Personal history of other venous thrombosis and embolism; E78.00 Pure hypercholesterolemia, unspecified; K21.9 Gastro-esophageal reflux disease without esophagitis; Z90.710 Acquired absence of both cervix and uterus; N39.0 Urinary tract infection, site not specified; N95.2 Postmenopausal atrophic vaginitis
CPT/HCPCS: 52356; 00873; 93005; C1769; C2617; J2405

== ENCOUNTER → 2025-01-12 | Outpatient (CLI) | payer MEDICARE, MEDICAID, SELFPAY ==
--- NOTE | 2025-01-12 11:27 | RAD_ITS ---
PROCEDURE: ABDOMEN SINGLE VIEW 01/12/2025 REASON FOR EXAM: KUB- KIDNEY STONES TECHNIQUE: Procedure Code: RADABD Modality: DX Procedure: ABDOMEN SINGLE VIEW COMPARISON: KUB, 09/30/2024. FINDINGS: There is a nonobstructive bowel gas pattern. There is a left-sided double-J ureteral stent in good position. There is a cluster of calcifications projected over the lower pole of the left kidney measuring 2.6 x 1.3 cm in total. There are no calcifications projected along the path of the stent. There is a vaginal cerclage noted. There is severe multilevel degenerative disc disease of the lower thoracic and lumbar spine. There is mild dextroscoliosis of the lumbar spine. RAD/Abdomen Single View IMPRESSION: 1. Left nephrolithiasis. 2. Left-sided double-J ureteral stent in good position. 3. Other findings as noted. Reading Location: [id number]
--- OUTSIDE RECORDS SUMMARY | 2025-01-12 12:59 | XMS RPT_ITS | CCD ---
Author Organization [facility] Team Providers Care Vp Project Name Role Phone Maddi PADILLA, Dr. Clyde Murdock Primary Care Provider Maddi PADILLA, Dr. Clyde Murdock Attending Provider Maddi PADILLA, Dr. Clyde Murdock Referring Provider [phone] [place] PADILLA, Dr. Doyle Attending Provider [phone] [place] PADILLA, Dr. Doyle Referring Provider [phone] Brooklyn PADILLA, Dr. Doyle Attending Provider [place] PADILLA, Dr. Doyle Referring Provider [place] PADILLA, Dr. Doyle Other Provider [phone] Schinner, Clyde E Primary Care Unavailable Schinner, Clyde E Attending Unavailable Schinner, Clyde E Referring Unavailable Schinner, Clyde E Primary Care Unavailable Schinner, Clyde E Attending Unavailable Schinner, Clyde E Referring Unavailable Schinner, Clyde E Primary Care Unavailable Schinner, Clyde E Attending Unavailable Yanira Barahona Attending Unavailable Yanira Barahona Referring Unavailable Schinner, Clyde E Primary Care Unavailable Schinner, Clyde E Attending Unavailable Schinner, Clyde E Referring Unavailable Schinner, Clyde E Primary Care Unavailable Yanira Barahona Attending Unavailable Yanira Barahona Referring Unavailable Schinner, Clyde E Primary Care Unavailable Yanira Barahona Attending Unavailable Schinner, Clyde E Referring Unavailable Schinner, Clyde E Primary Care Unavailable Yanira Barahona Referring Unavailable Yanira Barahona Consulting Unavailable Yanira Barahona Attending Unavailable Schgaryner, Clyde E Primary Care Unavailable Yanira Barahona Referring Unavailable Yanira Barahona Consulting Unavailable Yanira Barahona Attending Unavailable Schinner, Clyde E Primary Care Unavailable Kyaw Perry Attending Unavailable Yanira Barahona Referring Unavailable Clyde Linda Primary Care Unavailable Yanira Barahona Attending Unavailable Yanira Barahona Referring Unavailable Clyde Linda Primary Care Unavailable Yanira Barahona Attending Unavailable Yanira Barahona Referring Unavailable Clyde Linda Primary Care Unavailable Medications Current Medications Medication Drug Class(es) Dates Sig (Normalized) Sig (Original) acetaminophen 325 mg / oxyCODONE hydrochloride 5 mg oral tablet (1 source) Opioid Agonist Start: 11-26-2024 take 1 tablet by mouth every eight hours as needed for pain Oxycodone-Acetamino phen 5-325 mg tablet Active 1 {tbl} PO Q8H as needed for pain 10 3 0 November 26, 2024 Calculus of kidney Calculus of kidney alendronic acid 70 mg oral tablet (7 sources) Bisphosphonate Start: 08-12-2023 take 1 tablet by mouth every week Alendronate (Fosamax) 70 mg tablet Active 70 mg PO EVERY WEEK August 12, 2023 12:00am amLODIPine 5 mg oral tablet (2 sources) Dihydropyridine Calcium Channel Geoffrey Start: 11-12-2024 take 1 tablet by mouth at bedtime Amlodipine 5 mg tablet Active 5 mg PO AT BEDTIME November 12, 2024 12:00am calcium carbonate 1500 mg oral tablet (7 sources) Start: 08-12-2023 take 1 tablet by mouth once daily Calcium Carbonate (Calcium 600) 600 mg calcium (1,500 mg) tablet Active 600 mg PO DAILY August 12, 2023 12:00am cholecalciferol 0.125 mg oral capsule (7 sources) Vitamin D Start: 08-12-2023 take 1 capsule by mouth once daily Cholecalciferol (Vitamin D3) 125 mcg (5,000 unit) capsule Active 125 ug PO DAILY August 12, 2023 12:00am estradiol 0.1 mg/ml vaginal cream (1 source) Estrogen Start: 11-20-2024 Estradiol 0.01 % (0.1 mg/gram) cream Active 1 g VAGINAL 3 TIMES A WEEK 42.5 90 3 November 20, 2024 12:00am levoFLOXacin 500 mg oral tablet (1 source) Quinolone Antimicrobial Start: 11-23-2024 take 1 tablet by mouth once daily Levofloxacin 500 mg tablet Active 500 mg PO daily 7 0 November 23, 2024 12:00am Ablahsdy-Bgw-Gglf-Fa -Vit K-Lut (Centrum Silver Women) 8 mg iron-400 mcg-50 mcg tablet (2 sources) Start: 11-12-2024 take 1 tablet by mouth once daily Wprzdmhh-Bty-Vkbr-F a-Vit K-Lut (Centrum Silver Women) 8 mg iron-400 mcg-50 mcg tablet Active 1 {tbl} PO DAILY November 12, 2024 12:00am omeprazole 20 mg disintegrating oral tablet (14 sources) Proton Pump Inhibitor Start: 07-19-2020 take 1 tablet by mouth once daily Omeprazole 20 MG tablet,disintegrat, delay rel Active 20 mg PO DAILY 90 3 July 19, 2020 12:00am ondansetron 4 mg disintegrating oral tablet (2 sources) Serotonin-3 Receptor Antagonist Start: 11-26-2024 take 1 tablet by mouth every eight hours as needed for nausea and vomiting Ondansetron 4 mg tablet,disintegrati ng Active 4 mg PO Q8H as needed for nausea and vomiting 10 0 November 26, 2024 12:00am phenazopyridine hydrochloride 200 mg oral tablet (2 sources) Start: 11-26-2024 take 1 tablet by mouth three times daily as needed for pain Phenazopyridine 200 mg tablet Active 200 mg PO THREE TIMES A DAY as needed for pain 30 November 26, 2024 12:00am rosuvastatin calcium 10 mg oral tablet (2 sources) HMG-CoA Reductase Inhibitor Start: 11-12-2024 take 1 tablet by mouth at bedtime Rosuvastatin 10 mg tablet Active 10 mg PO AT BEDTIME November 12, 2024 12:00am Completed/Discontinued Medications Medication Drug Class(es) Dates Sig (Normalized) Sig (Original) acetaminophen 500 mg oral tablet (20 sources) Start: 06-10-2020 End: 07-06-2020 take 2 tablets by mouth every six hours as needed for pain Acetaminophen 500 MG tablet Discontinued 1000 mg PO EVERY 6 HOURS NEEDED as needed for Pain Score 1-5 0 0 June 10, 2020 1:00am July 06, 2020 3:26pm Start: 06-10-2020 End: 07-06-2020 take 1000 mg by mouth every six hours as needed Acetaminophen Discontinued 1000 MG PO EVERY 6 HOURS NEEDED 0 June 10, 2020 1:00am July 06, 2020 3:26pm Start: 05-06-2020 End: 06-10-2020 Acetaminophen 325 MG tablet Discontinued 650 mg PO EVERY 6 HOURS NEEDED as needed for Pain Score 1-10/Temp > 100.7 F 0 May 06, 2020 1:00am June 10, 2020 2:57pm Start: 05-06-2020 End: 06-10-2020 take 650 mg by mouth every six hours as needed Acetaminophen Discontinued 650 MG PO EVERY 6 HOURS NEEDED May 06, 2020 1:00am June 10, 2020 2:57pm apixaban 5 mg oral tablet (20 sources) Factor Xa Inhibitor Start: 06-10-2020 End: 08-12-2023 take 1 tablet by mouth once daily Apixaban 5 MG tablet Discontinued 5 mg PO TWICE A DAY 60 0 June 10, 2020 2:58pm August 12, 2023 2:26pm blood thinner will stop 1 day prior Start: 05-06-2020 End: 06-10-2020 take 1 tablet by mouth twice daily Apixaban 5 MG tablet Discontinued 5 mg PO TWICE A DAY May 06, 2020 4:41pm June 10, 2020 2:58pm blood thinner baclofen 10 mg oral tablet (14 sources) gamma-Aminobutyric Acid-ergic Agonist Start: 06-10-2020 End: 11-12-2024 take 1 tablet by mouth three times daily as needed for muscle spasms Baclofen 10 MG tablet Discontinued 10 mg PO 3 TIMES DAILY NEEDED as needed for Muscle Spasm 30 0 June 10, 2020 1:00am November 12, 2024 10:42am cefTRIAXone 2000 mg injection (20 sources) Cephalosporin Antibacterial Start: 05-05-2020 End: 06-10-2020 Ceftriaxone 2 GM recon soln Discontinued 2 g IV EVERY 24 HOURS May 06, 2020 4:41pm June 10, 2020 2:58pm antibiotic stop date 06/13/20 dx: MSSA bacteremia weekly bmp, cbc. Fax to [phone] routine picc care with heparin/saline flush per protocol cyclobenzaprine hydrochloride 10 mg oral tablet (14 sources) Muscle Relaxant Start: 07-14-2020 End: 07-24-2025 Cyclobenzaprine 10 MG tablet Discontinued 10 mg PO NEEDED as needed for muscle spasms July 14, 2020 12:00am November 12, 2024 10:43am docusate sodium 50 mg / sennosides, correction 8.6 mg oral tablet (14 sources) Start: 05-06-2020 End: 06-10-2020 Sennosides-Docusate Sodium 1 TABLET tablet Discontinued 2 {tbl} PO TWICE DAILY NEEDED as needed for Constipation 0 May 06, 2020 1:00am June 10, 2020 2:58pm Start: 05-06-2020 End: 06-10-2020 take 2 tablets by mouth twice daily as needed Sennosides-Docusate Sodium Discontinued 2 TABLET PO TWICE DAILY NEEDED May 06, 2020 1:00am June 10, 2020 2:58pm ibuprofen 200 mg oral tablet (14 sources) Nonsteroidal Anti-inflammatory Drug Start: 07-06-2020 End: 08-12-2023 take 1-10 tablets by mouth every six hours as needed for pain Ibuprofen (Advil) 200 mg tablet Discontinued 200 mg PO EVERY 6 HOURS as needed for Pain 1-10 Or Fever July 06, 2020 12:00am August 12, 2023 2:26pm lactobacillus acidophilus [id number] unt / pectin 100 mg oral tablet (14 sources) Start: 06-10-2020 End: 08-12-2023 take 1 tablet by mouth twice daily Acidophilus-Pecti n, Grant 1 TABLET tablet Discontinued 1 NMA PO TWICE A DAY 0 June 10, 2020 1:00am August 12, 2023 2:26pm Start: 06-10-2020 take 1 tablet by [facility] twice daily Acidophilus-Pectin, Grant Active 1 TAB PO TWICE A DAY June 10, 2020 1:00am magnesium hydroxide 80 mg/ml oral suspension (14 sources) Start: 05-06-2020 End: 06-10-2020 take 1 mL by mouth once daily as needed for constipation Magnesium Hydroxide 30 ML suspension Discontinued 30 mL PO DAILY NEEDED as needed for Constipation 0 May 06, 2020 1:00am June 10, 2020 2:57pm Start: 05-06-2020 End: 06-10-2020 take 1 mL by mouth once daily as needed Magnesium Hydroxide Discontinued 30 ML PO DAILY NEEDED May 06, 2020 1:00am June 10, 2020 2:57pm polyethylene glycol 3350 [id number] mg / potassium chloride 2970 mg / sodium bicarbonate 6740 mg / sodium chloride 5860 mg / sodium sulfate 67382 mg powder for oral solution (7 sources) Osmotic Laxative Start: 09-18-2023 End: 11-12-2024 take 4000 mL by mouth once Peg 3350-Electrolytes 236-22.74-6.74 -5.86 gram recon soln Discontinued 4000 mL PO ONCE 4000 0 September 18, 2023 12:00am November 12, 2024 10:43am until fecal effluent is clear; do not exceed a total volume of 4000 mL polysaccharide iron complex 150 mg oral capsule (14 sources) Start: 06-10-2020 End: 08-12-2023 take 1 capsule by mouth once daily at mealtime Polysaccharide Iron Complex 150 MG capsule Discontinued 150 mg PO DAILY WITH MEALS 30 0 June 10, 2020 1:00am August 12, 2023 2:26pm sulfamethoxazole 800 mg / trimethoprim 160 mg oral tablet (14 sources) Dihydrofolate Reductase Inhibitor Antibacterial, Sulfonamide Antimicrobial Start: 04-24-2020 End: 05-05-2020 Sulfamethoxazole-Trim ethoprim 1 TABLET tablet Discontinued 1 {tbl} PO TWICE A DAY 14 April 24, 2020 1:00am May 05, 2020 10:50am Start: 04-24-2020 End: 05-05-2020 take 1 tablet by mouth twice daily Sulfamethoxazole-Trimethoprim Discontinu ed 1 TABLET PO TWICE A DAY April 24, 2020 1:00am May 05, 2020 10:50am Problems Active Problems Problem Classification Problem Date Documented Da te Episodic/Chronic Bacterial infection; unspecified site (14 sources) Bacteremia due to Staphylococcus aureus; Translations: [Bacteremia] 07-19-2020 Episodic Calculus of urinary tract (4 sources) Kidney stone; Translations: [Calculus of kidney] Onset: 10-07-2024 11-20-2024 Episodic Deficiency and other anemia (14 sources) Anemia; Translations: [Anemia, unspecified] 07-19-2020 Episodic Comment on above: IN THE PAST Essential hypertension (1 source) Essential (primary) hypertension; Translations: [Essential (primary) hypertension] Onset: 11-02-2024 Chronic Fracture of lower limb (14 sources) Closed fracture of talus; Translations: [Unspecified fracture of right talus, initial encounter for closed fracture] 07-06-2020 Episodic Genitourinary symptoms and ill-defined conditions (2 sources) Increased frequency of urination; Translations: [Frequency of micturition] 11-25-2024 Episodic Infective arthritis and osteomyelitis (except that caused by tuberculosis or sexually transmitted disease) (14 sources) Infective arthritis of right ankle; Translations: [Pyogenic arthritis, unspecified] 07-06-2020 Episodic Malaise and fatigue (14 sources) Asthenia; Translations: [Other malaise] 07-19-2020 Episodic Menopausal disorders (2 sources) Atrophy of vagina; Translations: [Postmenopausal atrophic vaginitis] 11-25-2024 Chronic Osteoarthritis (14 sources) Arthritis of right ankle; Translations: [Primary osteoarthritis, right ankle and foot] 04-25-2020 Chronic Other and unspecified benign neoplasm (7 sources) History of polyp of colon; Translations: [History of colonic polyps] 08-12-2023 Episodic Other bone disease and musculoskeletal deformities (7 sources) Avascular necrosis of bone; 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] 07-06-2020 Chronic Other bone disease and musculoskeletal deformities (7 sources) Idiopathic aseptic necrosis of unspecified ankle; 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] 07-06-2020 Chronic Other diseases of kidney and ureters (2 sources) Hydronephrosis with renal and ureteral calculous obstruction; Translations: [Hydronephrosis with renal and ureteral calculous obstruction] Onset: 12-22-2024 Episodic Other nervous system disorders (14 sources) Unable to walk; Translations: [Difficulty in walking, not elsewhere classified] 07-06-2020 Chronic Other non-traumatic joint disorders (14 sources) Acute ankle pain; Translations: [Pain in right ankle and joints of right foot] 07-06-2020 Episodic Phlebitis; thrombophlebitis and thromboembolism (14 sources) Bilateral deep vein thrombosis of lower extremities; Translations: [Acute embolism and thrombosis of unspecified deep veins of lower extremity, bilateral] 07-19-2020 Episodic Comment on above: 5 YRS AGO Prolapse of female genital organs (2 sources) Midline cystocele; Translations: [Cystocele, midline] 11-25-2024 Chronic Residual codes; unclassified (14 sources) Past history of procedure; Translations: [Other specified postprocedural states] 07-19-2020 Episodic Residual codes; unclassified (14 sources) H/O: ectopic ; Translations: [Personal history of other complications of , childbirth and the puerperium] 07-19-2020 Episodic Past or Other Problems Problem Classification Problem Date Documented Da te Episodic/Chronic Other screening for suspected conditions (not mental disorders or infectious disease) (1 source) Encounter for screening mammogram for malignant neoplasm of breast; Translations: [Encounter for screening mammogram for malignant neoplasm of breast] Onset: 03-06-2024 Episodic Urinary tract infections (20 sources) Urinary tract infectious disease; Translations: [Urinary tract infection, site not specified] Onset: 09-07-2024 07-19-2020 Episodic Results Test Name Value Interpretation Reference Range Facility Discharge Instructionon 08-0 Discharge Instruction [facility] Medical Records Department [address] [place] [id number] Instructions for Home/Discharge Instructions 11/26/24 1249 MR#: [id number] Acct: [id number] Name: SUELLEN LONG Rep #: [id number] : 1950 74 From: Yanira Barahona MD PCP: Dr. 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 [facility] [place] Instructions Diet Discharge Diet: No restrictions Activity Discharge Activity: Return to Normal Activity Dressing / Incision Call your doctor if you observe: Fever of 101 or Higher, Inability to urinate and Inability to have a bowel movement Follow Up Care Please Follow Up With: Yanira Barahona MD When: The office will call to make follow-up arrangements Test Results: Test results from this visit will be discussed in further detail at your follow-up appointment, if applicable. Discharge Plan Admission Attending Provider: Yanira Barahona Primary Care Provider: Clyde Linda Print Language: Comoran Discharge Orders/Prescription s Prescriptions: New phenazopyridine 200 mg tablet 200 mg PO TID PRN (Reason: pain) Qty: 30 3RF oxycodone-acetamino phen 5-325 mg tablet 1 tab PO Q8H PRN (Reason: pain) 3 Days Qty: 10 0RF ondansetron 4 mg tablet,disintegrati ng 4 mg PO Q8H PRN (Reason: nausea and vomiting) Qty: 10 0RF Continued alendronate [Fosamax] 70 mg tablet 70 mg PO QWEEK cholecalciferol (vitamin D3) 125 mcg (5,000 unit) capsule 125 mcg PO DAILY calcium carbonate [Calcium 600] 600 mg calcium (1,500 mg) tablet 600 mg PO DAILY estradiol 0.01 % (0.1 mg/gram) cream 1 g vaginal 3XW 90 Days Qty: 42.5 3RF omeprazole 20 MG tablet,disintegrat, delay rel 20 mg PO DAILY Qty: 90 3RF Centrum Silver Women 8 mg iron-400 mcg-50 mcg tablet 1 tab PO DAILY amlodipine 5 mg tablet 5 mg PO QHS rosuvastatin 10 mg tablet 10 mg PO QHS levofloxacin 500 mg tablet 500 mg PO QDAY Qty: 7 0RF Referrals / Follow Up: Clyde Linda MD [Primary Care Provider] - Disposition Disposition (needs filled in before D/C Order can be placed): Home, Self Care 11/26/24 1251 Yanira Barahona MD CC: Dr. Clyde Linda MD Signed [facility] MR/POSTOP.[facility] 11-26-2024 MR/POSTOP.[facility] Medical Records Department [address] [place] [address] Anesthesia Postop Eval I 11/26/24 1419 MR#: [id number] Acct: [id number] Name: SUELLEN LONG Rep #: [id number] : 1950 74 From: Indra Garcia CRNA PCP: Dr. 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 [facility] [place] Race[place] C Location: [place] [address] Anesthesia: Postop Eval I Current Vital Signs Temperature: 98 F Pulse Rate: 55 Blood Pressure: 140/82 Respiratory Rate: 16 Pulse Ox: 98 Oxygen Delivery Method: Room Air Assessment Airway patent: Yes Spontaneous unlabored respirations: Yes Mental status: Awake and Calm nausea: No Vomiting: No Anesthesia Complication: No Fluid Hydration Crystalloid volume administer (ml): 800 Total IV fluid infused: 800 Progress Note Anesthesia document: Postop Eval 1 completed: Yes 11/26/24 1420 Date Indra Radha ORDER DEPARTMENT SUPERVISOR Cosigner Signature: Date CC: Signed Normal [facility] MR/[id number] 11-26-2024 MR/POSTOPAN2 [facility] Medical Records Department [address] [place] [address] Anesthesia Postop Eval II 11/26/24 1512 MR#: [id number] Acct: [id number] Name: SUELLEN LONG Rep #: [id number] : 1950 74 From: Pankaj James MD PCP: Dr. 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 [facility] [place] Race[place] C Location: [place] [address] Anesthesia Postop Eval I Sum Postop Eval Completion status Anesthesia document: Postop Eval 1 completed: Yes Anesthesia Postop Eval I Summary Anesthesia Postop Eval I Summary: Anesthesia Postop Eval I: Assessment Summary Airway patent Yes 11/26/24 14:20 ORDER DEPARTMENT SUPERVISOR.MDOT Spontaneous unlabored Yes 11/26/24 14:20 ORDER DEPARTMENT SUPERVISOR.MDOT respirations Mental status Awake,Calm 11/26/24 14:20 ORDER DEPARTMENT SUPERVISOR.MDOT nausea No 11/26/24 14:20 ORDER DEPARTMENT SUPERVISOR.MDOT Vomiting No 11/26/24 14:20 ORDER DEPARTMENT SUPERVISOR.MDOT Anesthesia Postop Eval I: Fluid Summary Crystalloid volume administer 800 11/26/24 14:20 ORDER DEPARTMENT SUPERVISOR.MDOT (ml) Colloids volume administered ( ml) Blood Product volume administered (ml) Total IV fluid infused 800 11/26/24 14:20 ORDER DEPARTMENT SUPERVISOR.MDOT Anesthesia Postop Eval I: Summary Notes Anesthesia Complication No 11/26/24 14:20 ORDER DEPARTMENT SUPERVISOR.MDOT Anesthesia Complication Comment: Post-operative progress note Anesthesia: Postop Eval II Evaluation Mental status: Awake Pain Level: 0 nausea: No Vomiting: No 11/26/24 151 Date Pankaj Raya Signature: Date CC: Signed Normal [facility] Operative Reporton 5 Operative Report [facility] Medical Records Department [address] [place] [address] Operative Report 11/26/24 1251 MR#: [id number] Acct: [id number] Name: SUELLEN LONG Rep #: [id number] : 1950 74 From: Yanira Barahona MD PCP: Dr. 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:[facility] Location: [place] [address] Operative Report (Standard) Operative Information Date of Procedure: 11/26/24 Pre-Operative Diagnosis: Left renal and ureteropelvic junction stones and hydronephrosis Post-Operative Diagnosis: Same Surgery/Procedure Performed: Cystoscopy with left ureteral stent insertion, left renal extracorporal shockwave lithotripsy rug cleaner hand: No Type of Anesthesia: General RN Documented Start/Stop Times: Operation Date: 11/26/24 12:05 Case Time Into Pre-Op 11/26/24 10:40 Out of Pre-Op 11/26/24 12:45 Anesthesia Start 11/26/24 12:55 Into Room 11/26/24 12:55 Procedure Start 11/26/24 13:07 Procedure End 11/26/24 14:11 Procedure Start Time: 13:07 Procedure Stop Time: 14:11 Select all DRAINS/GRAFTS/IMPLA NTS that apply: Drains Drain details: 6 Salvadorean by 22 cm JJ stent Estimated Blood Loss: <5cc Specimen collected: No Description of surgery: The patient is a 74-year-old female with large left renal and ureteropelvic junction stones who presents for definitive management. Informed consent was obtained. The patient was taken to the operating room and placed on the operating room table. Anesthesia monitored the head, neck, airway, IV access and vital signs throughout the case. Once anesthesia was appropriately administered, she was placed into dorsal lithotomy position and was prepped and draped in usual sterile fashion. The cystoscope was inserted through the urethra under direct visualization into the urinary bladder. The bladder mucosa revealed no evidence of mass, erythema, ulceration or foreign body. The left ureteral orifice was intubated with a 0.035 Glidewire which passed into the renal pelvis as seen on fluoroscopy. A 6 Salvadorean 22 cm JJ stent was placed over the Glidewire and was positioned into the renal pelvis with good curling in the urinary bladder. At this time the bladder was emptied and the cystoscope was removed. The patient was repositioned on the table. The distal aspect of the UPJ stone was shocked with 3000 shocks. It appeared to be fragmented at the conclusion of the case. The patient was then awakened and taken to the recovery room in good condition. There were no complications during the procedure. Surgical Findings: Large left stone burden Complications Complications: No Admit VTE Documentation VTE Present on Admission: Yes VTE Mechan Device Prophylaxis: SCD's VTE Pharm Prophylaxis ordered?: No Reason prophylaxis not ordered: Treatment Not Indicated 11/26/24 6094 Cosigner Signature (if applicable): CC: Dr. Yanira Barahona MD; Dr. Clyde Linda MD Signed Normal [facility] Laboratory - Chemistry and C hemistry - challengeOrdered By: Yanira Barahona on 11-20-2024 Bilirubin Ql (U) Negative [facility] Glucose Ql (U) Negative [facility] Ketones Ql (U) Negative [facility] pH (U) 5 [pH] [facility] Specific gravity (U) [Rel density] 1.020 [facility] Urobilinogen (U) [Mass/Vol] Negative [facility] Laboratory - Hematology and Cell countsOrdered By: Yanira Barahona on 11-20-2024 Hemoglobin Ql (U) Small [facility] Laboratory - UrinalysisOrder ed By: Yanira Barahona on 11-20-2024 Nitrite Ql (U) Positive [facility] Protein Ql (U) 1+ [facility] MR/EMILY.[place] 11-20-2024 MR/EMILY.[facility] [address], [address] [place] [address] OFFICE VISIT Date of Service: 11/20/24 MR#: [id number] Acct: [id number] Name: SUELLEN LONG Rep #: [id number] : 1950 Provider: Dr. Yanira Morin i, MD Age/Sex: 74/F [place] [facility] Status: Signed with Addenda ADDENDUM by Dr. Yanira Barahona MD on 11/26/24 at 1247 HPI Details: SUELLEN LONG, is a 74 F who presents to the office today for Assessment and Plan Assessment and Plan (1) Urinary tract infection: Status: Acute (2) Kidney stones: Status: Acute (3) Urinary frequency: Status: Acute (4) Vaginal atrophy: Status: Acute (5) Cystocele, midline: Status: Acute Orders: Orders POC UA Auto w/o Microscopy 11/20/24 N20.0 - Calculus of kidney Medications: New estradiol 0.01%(0.1mg/gram) 1 g vaginal 3XW 42.5 grams 3RF 3 months Addendum I have examined the patient and the H P has been reviewed. There are no clinical changes since date of exam. She has been seen and cleared for surgery by primary care. 11/26/24 1247 Date Yanira Barahona MD cc: * Signed Intake Vital Signs 10/07/23 08:00 11/20/24 16:22 Height 5 ft 5 ft Weight: 140 lb BMI 27.3 BP 138/90 H Pulse 62 Intake Visit Reasons: PRE OP URINE/SIGNED CONSENT Chief Complaint: preoperative visit with urine and consent Repacker Required: No Accompanied by: Self Is patient in pain?: No Allergies No Known Allergies Allergy (Verified 11/20/24 16:21) Medications ???Medication ???Instructions ???Recorded ???Confirmed ???Type omeprazole 20 mg delayed 20 mg PO DAILY ##90 07/19/2011/20 Rx release,disintegrat ing tablet alendronate 70 mg tablet (Fosamax) 70 mg PO QWEEK 08/12/23 11/20/24 History calcium carbonate (Calcium 600) 600 mg PO DAILY 08/12/23 11/20/24 History cholecalciferol (vitamin D3) 125 125 mcg PO DAILY 08/12/23 11/20/24 History mcg (5,000 unit) capsule amlodipine 5 mg tablet 5 mg PO QHS 11/12/24 11/20/24 Hist ory dpsphnqq-ffja-yuqh 8 mg-folic 400 1 tab PO DAILY 11/12/24 11/20/24 History mcg-K 50 mcg-lutein 300 mcg tablet (Centrum Silver Women) rosuvastatin 10 mg tablet 10 mg PO QHS 11/12/24 11/20/24 His tory estradiol 0.01% (0.1 mg/gram) 1 g vaginal 3XW 3 months #42.5 05/1611/20/24 Rx vaginal cream grams levofloxacin 500 mg tablet 500 mg PO QDAY #7 tabs 11/23/24 R x Have you fallen in the past year?: No PFSH Medical History (Updated 11/25/24 @ 17:[address] Yanira Barahona MD) Cystocele, midline Vaginal atrophy Urinary frequency Osteoporosis Degenerative disc disease Coagulation disorder Presence of pessary Loss of hearing Post-menopausal Bladder disease Arthritis High cholesterol Back pain History of hiatal hernia Gastric reflux History of edema History of echocardiogram Wears glasses History of GI bleed Former smoker Anemia Fracture of talus of right ankle, closed 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, bilateral lower limbs Surgical History H/O: hysterectomy History of ankle surgery H/O adenoidectomy Hx of colonoscopy History of cataract extraction with lens replacement Hx of tonsillectomy History of ectopic Hx of lithotripsy Hx of bladder repair surgery Family History Father Hypertension Mother CVA (cerebral vascular accident) Other Cancer Social History Smoking Status: Former smoker second hand exposure: No alcohol intake: never substance use type: does not use caffeine: Yes what type of physical activity do you participate in: none frequency: does not exercise do you feel safe at home: Yes HPI HPI Urology Chief Complaint: preoperative visit with urine and consent Details: SUELLEN LONG, is a 74 F. The patient is here for preoperative history and physical prior to cystoscopy with left ureteral stent insertion and left renal scheduled extracorporeal shockwave lithotripsy. There are no new symptoms since the last visit. The procedure, recovery and expectations were explained. The risks, benefits and alternatives were discussed, including but not limited to, the risks of anesthesia, bleeding, infection, injury, pain and the need for further intervention. We have discussed the risk of exposure to and/or potential harm posed by the COVID-19 virus with having a surgery/procedure at this time. A joint decision was made at this time to proceed with the scheduled surgery/procedure as indicated on the consent form. ROS Const Constitutional: No chills, fatigue, fever(s), headache(s), night sweats, weakness, (more content not included)... Normal [facility] MR/PAT.ANEon 11-20-2024 MR/PAT.[facility] Medical Records Department [address] [place] [address] PAT - Anesthesia 11/20/241952 MR#: [id number] Acct: [id number] Name: SUELLEN LONG Rep #: [id number] : 1950 74 From: Kevin Govea MD PCP: Dr. 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 When Was Last Pacemaker Check QUESTION #4 FULL TEXT: You/Your Family Experience fever (hyperthermia) with Anesthesia Last Oral Intake Last Oral intake: Last Oral Intake NPO since Meds taken in AM with sips of water? Meds patient instructed to take am of surgery PONV PONV - hat band attacher: PONV - hat band attacher Female Yes 11/12/24 10:47 HX of Motion Sickness No 11/12/24 10:47 HX of N/V After Surgery No 11/12/24 10:47 Non-Smoker Yes 11/12/24 10:47 Duration of Surgery greater Yes 11/12/24 10:47 than 60 minutes Number of Risk Factors 3 11/12/24 10:47 PONV Score Moderate Risk 11/12/24 10:47 Height Weight Height Weight: Anesthesia: Height Weight Height 5 ft 10/07/23 08:00 Respiratory Assessment Respiratory Assessment - hat band attacher: Respiratory Tract Infection Hx - hat band attacher Hx Respiratory Tract Infection No 11/12/24 10:47 STOP Sleep Apnea STOP Sleep Apnea - hat band attacher: STOP Sleep Apnea - hat band attacher Hx Hypertension Yes: CONTROLLED WITH MED 11/12/24 10:47 Hx Sleep Apnea No 11/12/24 10:47 CPAP No 10/07/23 09:25 BIPAP Do you snore loudly (louder No 11/12/24 10:47 than talking or can be heard Do you often feel tired/ No 11/12/24 10:47 fatigued/ sleepy during daytime? Has anyone observed you stop No 11/12/24 10:47 breathing during sleep? STOP Results Negative 11/12/24 10:47 QUESTION #5 FULL TEXT : Do you snore loudly (louder than talking or can be heard through closed doors)? 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 Specify any problems Hx of Preganancy in last 3 No 11/12/24 10:47 Months Nurse Filling Out Transfusion DSCHRIBER 11/12/24 10:47 Questions: Date: 11/12/24 11/12/24 10:47 Time: 10:49 11/12/24 10:47 Patient unable to answer at this time (ie. confused, unrespo /Reproduct ion History /Reproduct jia History - hat band attacher: /Reproduct jia Hx- hat band attacher Hx Now No 11/12/24 10:47 Gestational Age (in weeks): EDC: Hx Hx Para Hx Section SAB No 11/12/24 10:47 [facility] Medical History (Updated 11/20/24 @ 16:51 by Zofia Sykes) Osteoporosis Degenerative disc disease Coagulation disorder Presence of pessary Loss of hearing Post-menopausal Bladder disease Arthritis High cholesterol Back pain History of hiatal hernia Gastric reflux History of edema History of echocardiogram Wears glasses History of GI bleed Former smoker Anemia Fracture of talus of right ankle, closed 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, bilateral lower limbs Home Medications ???Medication ???Instructions ???Recorded ???Last Taken ???Type omeprazole 20 mg delayed 20 mg PO DAILY ##90 07/19/2010/06 Rx release,disintegrat ing tablet alendronate 70 mg tablet (Fosamax) 70 mg PO QWEEK 08/12/23 Unknown History calcium carbonate (Calcium 600) 600 mg PO D (more content not included)... Normal [facility] No Panel InformationOrdered By: Yanira Barahona on 11-20-2024 Urine Leukocytes Positive [facility] Urine Non-Hemolyzed Blood Negative [facility] Electrocardiogram reportOrde red By: Kyaw Perry on 11-18-2024 EKG study [facility] Cardiovascular Services [address] [place] [address] 12 Lead EKG 11/17/24 1342 MR#: [id number] Acct: [id number] Name: SUELLEN LONG Rep #:[id number] : 1950 74 From: Kyaw Perry MD Attending Dr: Dr. Yanira Barahona MD Status: PRE AK[facility] Ordering Dr: Yanira Barahona MD Date: 0 11/17/24 [place] [facility] [place] Sex: F C Admitted: Test Reason : PRE-OP Blood Pressure : */* mmHG Vent. Rate : 62 BPM Atrial Rate : 62 BPM P-R Int : 158 ms QRS Dur : 88 ms QT Int : 428 ms P-R-T Axes : 9 -8 21 degrees QTcB Int : 434 ms Normal sinus rhythm Nonspecific ST and T wave abnormality Abnormal ECG Confirmed by KYAW PERRY MD ([id number]), LANDEN Thompson ([id number]) on 58:38:55 AM Referred By: Yanira Barahona Confirmed By: KYAW PERRY MD 11/18/24 0838 Date _ Kyaw Perry MD CC: Dr. Yanira Barahona MD; Dr. Clyde Linda MD ~ Signed [facility] Other 12 Lead EKGon 11-17-2024 12 Lead EKG [facility] Cardiovascular Services [address] [place] [address] 12 Lead EKG 11/17/24 1342 MR#: [id number] Acct: [id number] Name: SUELLEN LONG Rep #: [id number] : 1950 74 From: Kyaw Perry MD Attending Dr: Dr. Yanira Barahona MD Status: PRE [facility] Ordering [place]: Yanira Barahona MD Date: 11/17/24 [place] [facility] [place] Sex: F C Admitted: Test Reason : PRE-OP Blood Pressure : */* mmHG Vent. Rate : 62 BPM Atrial Rate : 62 BPM P-R Int : 158 ms QRS Dur : 88 ms QT Int : 428 ms P-R-T Axes : 9 -8 21 degrees QTcB Int : 434 ms Normal sinus rhythm Nonspecific ST and T wave abnormality Abnormal ECG Confirmed by KYAW PERRY MD ([id number]), LANDEN Thompson ([id number]) on 11/18/2024 8:38:55 AM Referred By: Yanira Barahona Confirmed By: KYAW PERRY MD 11/18/24 0838 Date Kyaw Perry MD CC: Dr. Yanira Barahona MD; Dr. Clyde Linda MD Signed Normal [facility] Absolute lymphocyte countOrd ered By: Clyde Linda on 10-28-2024 Lymphocytes Auto (Unsp spec) [#/Vol] 2.21 10*3/uL 0.83-4.51 [facility] Absolute neutrophil countOrd ered By: Clyde Linda on 10-28-2024 Neutrophils (Bld) [#/Vol] 3.9 10*3/uL 2.0-7.7 [facility] Anion gap in Serum or Plasma Ordered By: Clyde Linda on 10-28-2024 Anion gap [Moles/Vol] 12 mmol/L 5-15 [facility] Automated lymphocyte count a s percentage of total leukocytesOrdered By: Clyde Linda on 10-28-2024 Lymphocytes/100 WBC Auto (Unsp spec) 32.7 % 19- [facility] BUN/creatinine ratioOrdered By: Clyde Linda on 10-28-2024 Urea nitrogen/Creatinine [Mass ratio] 14.4 mg/mg 10-20 [facility] Basophil percentageOrdered B y: Clyde Linda on 10-28-2024 Basophils/100 WBC (Bld) 1.0 % 0-1 [facility] Bilirubin, totalOrdered By: Clyde Linda on 10-28-2024 Bilirubin [Mass/Vol] 0.43 mg/dL 0.00-1.[address] [facility] CBC W/Diff, Automatedon Absolute Lymph 2.21 X10 3/uL Normal 0.83-4.51 [facility] Comment on above: Order Comment: Order Date: 10/28/24 Order Info: [id number] - CBCD Performed By: #### L 500.4100, L100.0100, L500.4050, L501.5200 #### [facility] [address] [place], [address] Absolute Neut 3.9 X10 3/uL Normal 2.0-7.7 [facility] Comment on above: Order Comment: Order Date: 10/28/24 Order Info: [id number] - CBCD Performed By: #### L 500.4100, L100.0100, L500.4050, L501.5200 #### [facility] [address] [place], [address] Basophils/100 WBC (Bld) 1.0 % Normal 0-1 [facility] Comment on above: Order Comment: Order Date: 10/28/24 Order Info: [id number] - CBCD Performed By: #### L 500.4100, L100.0100, L500.4050, L501.5200 #### [facility] [address] [place], [address] Eosinophils/100 WBC (Bld) 1.9 % Normal 0-5 [facility] Comment on above: Order Comment: Order Date: 10/28/24 Order Info: [id number] - CBCD Performed By: #### L 500.4100, L100.0100, L500.4050, L501.5200 #### [facility] [address] [place], [address] Erythrocyte distribution width (RBC) [Ratio] 14.2 % Normal 11.6-14.6 [facility] Comment on above: Order Comment: Order Date: 10/28/24 Order Info: [id number] - CBCD Performed By: #### L 500.4100, L100.0100, L500.4050, L501.5200 #### [facility] [address] [place], [address] Hematocrit (Bld) [Volume fraction] 39.7 % Normal 37-47 [facility] Comment on above: Order Comment: Order Date: 10/28/24 Order Info: 0184-1 - CBCD Performed By: #### L 500.4100, L100.0100, L500.4050, L501.5200 #### [facility] [address] [place], [address] Hemoglobin (Bld) [Mass/Vol] 12.9 g/dL Normal 12.0-15.0 [facility] Comment on above: Order Comment: Order Date: 10/28/24 Order Info: [id number] - CBCD Performed By: #### L 500.4100, L100.0100, L500.4050, L501.5200 #### [facility] [address] [place], [address] IG% 0.100 Normal 0.0-0.9 [facility] Comment on above: Order Comment: Order Date: 10/28/24 Order Info: [id number] - CBCD Result Comment: IG% - Immature Granulocytes (promyelocytes, myelocytes and metamyelocytes) > 1% indicates that a LEFT SHIFT is Present. Performed By: #### L 500.4100, L100.0100, L500.4050, L501.5200 #### [facility] [address] [place], [address] Lymphocytes/100 WBC (Bld) 32.7 % Normal 19-41 [facility] Comment on above: Order Comment: Order Date: 10/28/24 Order Info: [id number] - CBCD Performed By: #### L 500.4100, L100.0100, L500.4050, L501.5200 #### [facility] [address] [place], [address] MCH (RBC) [Entitic mass] 29.1 pg Normal 27.0-32.0 [facility] Comment on above: Order Comment: Order Date: 10/28/24 Order Info: [id number] - CBCD Performed By: #### L 500.4100, L100.0100, L500.4050, L501.5200 #### [facility] [address] [place], [address] MCHC (RBC) [Mass/Vol] 32.5 g/dL Normal 32-36 [facility] Comment on above: Order Comment: Order Date: 10/28/24 Order Info: [id number] - CBCD Performed By: #### L 500.4100, L100.0100, L500.4050, L501.5200 #### [facility] [address] [place], [address] MCV (RBC) [Entitic vol] 89.4 fL Normal 81-99 [facility] Comment on above: Order Comment: Order Date: 10/28/24 Order Info: [id number] - CBCD Performed By: #### L 500.4100, L100.0100, L500.4050, L501.5200 #### [facility] [address] [place], [address] Monocytes/100 WBC (Bld) 6.8 % Normal 0-10 [facility] Comment on above: Order Comment: Order Date: 10/28/24 Order Info: [id number] - CBCD Performed By: #### L 500.4100, L100.0100, L500.4050, L501.5200 #### [facility] [address] [place], [address] Neutrophils/100 WBC (Bld) 57.5 % Normal 47-70 [facility] Comment on above: Order Comment: Order Date: 10/28/24 Order Info: [id number] - CBCD Performed By: #### L 500.4100, L100.0100, L500.4050, L501.5200 #### [facility] [address] [place], [address] Nucleated RBC (Bld) [#/Vol] 0 10*3/uL Normal 0-5 [facility] Comment on above: Order Comment: Order Date: 10/28/24 Order Info: [id number] - CBCD Performed By: #### L 500.4100, L100.0100, L500.4050, L501.5200 #### [facility] [address] [place], [address] Platelet mean volume (Bld) [Entitic vol] 11.5 fL Normal 6.2-12.0 [facility] Comment on above: Order Comment: Order Date: 10/28/24 Order Info: [id number] - CBCD Performed By: #### L 500.4100, L100.0100, L500.4050, L501.5200 #### [facility] [address] [place], [address] Platelets (Bld) [#/Vol] 278 10*3/uL Normal 150-450 [facility] Comment on above: Order Comment: Order Date: 10/28/24 Order Info: [id number]- - CBCD Performed By: #### L 500.4100, L100.0100, L500.4050, L501.5200 #### [facility] [address] [place], [address] RBC (Bld) [#/Vol] 4.44 10*6/uL Normal 4.2-5.4 [facility] Comment on above: Order Comment: Order Date: 10/28/24 Order Info: 0184- - CBCD Performed By: #### L 500.4100, L100.0100, L500.4050, L501.5200 #### [facility] [address] [place], [address] RDW SD 45.8 fl High 35.1-43.9 [facility] Comment on above: Order Comment: Order Date: 10/28/24 Order Info: [id number] - CBCD Performed By: #### L 500.4100, L100.0100, L500.4050, L501.5200 #### [facility] [address] [place], [address] WBC (Bld) [#/Vol] 6.8 10*3/uL Normal 4.4-11.0 [facility] Comment on above: Order Comment: Order Date: 10/28/24 Order Info: [id number] - CBCD Performed By: #### L 500.4100, L100.0100, L500.4050, L501.5200 #### [facility] [address] [place], [place], [address] Calculated very low density lipoprotein (VLDL) cholesterol measurementOrdered By: Clyde Linda on 10-28-2024 Calculated very low density lipoprotein (VLDL) cholesterol measurement 34 mg/dL 5-40 [facility] Carbon dioxide, total [Moles /volume] in Central venous bloodOrdered By: Clyde Linda on 10-28-2024 CO2 [Moles/Vol] 22.9 mmol/L 21.0-32.0 [facility] Chloride assayOrdered By: Key Linda on 10-28-2024 Chloride [Moles/Vol] 109 mmol/L High 98-[address] [facility] Comprehensive Metabolic Prof ilon 10-28-2024 Albumin [Mass/Vol] 4.3 g/dL Normal 3.4-4.8 [facility] Comment on above: Order Comment: Order Date: 10/28/24Order Info: [id number] - CMPOrder Info: [id number] - LIPIDOrder Info: [id number] - MG Performed By: #### L 500.4100, L100.0100, L500.4050, L501.5200 ####[facility] [address] [place], [place], [address] Albumin/Globulin [Mass ratio] 1.5 {ratio} Normal 0.9-2.4 [facility] Comment on above: Order Comment: Order Date: 10/28/24Order Info: [id number] - CMPOrder Info: [id number] - LIPIDOrder Info: [id number] - MG Performed By: #### L 500.4100, L100.0100, L500.4050, L501.5200 ####[facility] [address] [place], [address] ALK PHOS 60 U/L Normal 35-104 [facility] Comment on above: Order Comment: Order Date: 10/28/24Order Info: 07- - CMPOrder Info: [id number] - LIPIDOrder Info: - MG Performed By: #### L 500.4100, L100.0100, L500.4050, L501.5200 ####[facility] [address] [place], [address] ALT [Catalytic activity/Vol] 21 U/L Normal <=34 [facility] Comment on above: Order Comment: Order Date: 10/28/24Order Info: [id number] - CMPOrder Info: [id number] - LIPIDOrder Info: - MG Performed By: #### L 500.4100, L100.0100, L500.4050, L501.5200 ####[facility] [address] [place], [address] AST [Catalytic activity/Vol] 22 U/L Normal <=31 [facility] Comment on above: Order Comment: Order Date: 10/28/24Order Info: 07 - CMPOrder Info: [id number] - LIPIDOrder Info: - MG Performed By: #### L 500.4100, L100.0100, L500.4050, L501.5200 ####[facility] [address] [place], [address] Bilirubin [Mass/Vol] 0.43 mg/dL Normal 0.00-1.[address] [facility] Comment on above: Order Comment: Order Date: 10/28/24Order Info: 07 - CMPOrder Info: [id number] - LIPIDOrder Info: - MG Performed By: #### L 500.4100, L100.0100, L500.4050, L501.5200 ####[facility] [address] [place], [address] BUN/CRE 14.4 RATIO Normal 10-20 [facility] Comment on above: Order Comment: Order Date: 10/28/24Order Info: [id number] - CMPOrder Info: [id number] - LIPIDOrder Info: [id number] - MG Performed By: #### L 500.4100, L100.0100, L500.4050, L501.5200 ####[facility] [address] [place], [address] Calcium [Mass/Vol] 9.3 mg/dL Normal 7.6-11.0 [facility] Comment on above: Order Comment: Order Date: 10/28/24Order Info: 07- - CMPOrder Info: [id number] - LIPIDOrder Info: [id number] - MG Performed By: #### L 500.4100, L100.0100, L500.4050, L501.5200 ####[facility] [address] [place], [address] Chloride [Moles/Vol] 109 mmol/L High 98-[address] [facility] Comment on above: Order Comment: Order Date: 10/28/24Order Info: [id number]- - CMPOrder Info: [id number] - LIPIDOrder Info: [id number] - MG Performed By: #### L 500.4100, L100.0100, L500.4050, L501.5200 ####[facility] [address] [place], [address] CO2 [Moles/Vol] 22.9 mmol/L Normal 21.0-32.0 [facility] Comment on above: Order Comment: Order Date: 10/28/24Order Info: [id number] - CMPOrder Info: [id number] - LIPIDOrder Info: [id number] - MG Performed By: #### L 500.4100, L100.0100, L500.4050, L501.5200 ####[facility] [address] [place], [address] Creatinine [Mass/Vol] 0.73 mg/dL Normal 0.70-1.20 [facility] Comment on above: Order Comment: Order Date: 10/28/24Order Info: 86-1 - CMPOrder Info: [id number] - LIPIDOrder Info: [id number] - MG Performed By: #### L 500.4100, L100.0100, L500.4050, L501.5200 ####[facility] [address] [place], [address] GAP 12 Normal 5-15 [facility] Comment on above: Order Comment: Order Date: 10/28/24Order Info: [id number] - CMPOrder Info: [id number] - LIPIDOrder Info: [id number] - MG Performed By: #### L 500.4100, L100.0100, L500.4050, L501.5200 ####[facility] [address] [place], [address] GFR/1.73 sq M.predicted among non-blacks MDRD (S/P/Bld) [Vol rate/Area] 85 mL/min/{1.73_m2} Normal >60 [facility] Comment on above: Order Comment: Order Date: 10/28/24Order Info: 07-1 - CMPOrder Info: [id number] - LIPIDOrder Info: [id number] - MG Result Comment: mL/m in/1.73m2 CKD-EPI Creatinine Equation (2020) Performed By: #### L 500.4100, L100.0100, L500.4050, L501.5200 ####[facility] [address] [place], [address] Globulin (S) [Mass/Vol] 2.9 g/dL Normal 2.2-4.2 [facility] Comment on above: Order Comment: Order Date: 10/28/24Order Info: 07-1 - CMPOrder Info: [id number] - LIPIDOrder Info: [id number] - MG Performed By: #### L 500.4100, L100.0100, L500.4050, L501.5200 ####[facility] [address] [place], [address] Glucose [Mass/Vol] 95 mg/dL Normal 70-99 [facility] Comment on above: Order Comment: Order Date: 10/28/24Order Info: 86-1 - CMPOrder Info: [id number] - LIPIDOrder Info: [id number] - MG Performed By: #### L 500.4100, L100.0100, L500.4050, L501.5200 ####[facility] [address] [place], [address] Potassium [Moles/Vol] 3.9 mmol/L Normal 3.3-5.1 [facility] Comment on above: Order Comment: Order Date: 10/28/24Order Info: [id number] - CMPOrder Info: [id number] - LIPIDOrder Info: [id number] - MG Performed By: #### L 500.4100, L100.0100, L500.4050, L501.5200 ####[facility] [address] [place], [address] Sodium [Moles/Vol] 143 mmol/L Normal 133-145 [facility] Comment on above: Order Comment: Order Date: 10/28/24Order Info: 07- - CMPOrder Info: [id number] - LIPIDOrder Info: [id number] - MG Performed By: #### L 500.4100, L100.0100, L500.4050, L501.5200 ####[facility] [address] [place], [address] T PROT 7.2 g/dL Normal 5.9-8.4 [facility] Comment on above: Order Comment: Order Date: 10/28/24Order Info: [id number] - CMPOrder Info: [id number] - LIPIDOrder Info: [id number] - MG Performed By: #### L 500.4100, L100.0100, L500.4050, L501.5200 ####[facility] [address] [place], [place], [address] Urea nitrogen [Mass/Vol] 11 mg/dL Normal 4-19 [facility] Comment on above: Order Comment: Order Date: 10/28/24Order Info: [id number] - CMPOrder Info: [id number] - LIPIDOrder Info: [id number] - MG Performed By: #### L 500.4100, L100.0100, L500.4050, L501.5200 ####[facility] [address] [place], [address] Eosinophil percentageOrdered By: Clyde Linda on 10-28-2024 Eosinophils/100 WBC (Bld) 1.9 % 0-5 [facility] Erythrocyte distribution wid th ratioOrdered By: Clyde Linda on 10-28-2024 Erythrocyte distribution width (RBC) [Ratio] 14.2 % 11.6-14.6 [facility] Erythrocyte distribution wid th standard deviationOrdered By: Clyde Linda on 10-28-2024 Erythrocyte distribution width (RBC) [Ratio] 45.8 fl High 35.1-43.9 [facility] Glomerular filtration rate ( GFR) estimation/1.73 sq m using serum, plasma, or whole bOrdered By: Clyde Linda on 10-28-2024 GFR/1.73 sq M.predicted among non-blacks MDRD (S/P/Bld) [Vol rate/Area] 85 mL/min/{1.73_m2} >60 [facility] Comment on above: mL/min/1.73m2 CKD-EP I Creatinine Equation (2020) Hematocrit Auto (Bld) [Volum e fraction]Ordered By: Clyde Linda on 10-28-2024 Hematocrit (Bld) [Volume fraction] 39.7 % 37-47 [facility] Hemoglobin measurementOrdere d By: Clyde Linda on 10-28-2024 Hemoglobin (Bld) [Mass/Vol] 12.9 g/dL 12.0-15.0 [facility] Immature granulocytes/100 WB C Auto (Bld)Ordered By: Clyde Linda on 10-28-2024 Immature granulocytes/100 WBC (Bld) 0.100 % 0.0-0.9 [facility] Comment on above: IG% - Immature Granu locytes (promyelocytes, myelocytes and metamyelocytes) > 1% indicates that a LEFT SHIFT is Present. LDL calc ser/plasOrdered By: Clyde Linda on 10-28-2024 Cholesterol in LDL [Mass/Vol] 83 mg/dL [facility] Comment on above: Fwutzwuczy=735-476 m g/dL & Higher Hcjb=281 mg/dL or greater Laboratory - Chemistry and C hemistry - challengeOrdered By: Clyde Linda on 10-28-2024 AST [Catalytic activity/Vol] 22 U/L <32 [facility] Lipid Profileon 10-28-2024 CHOL:HDL 3.58 Normal [facility] Comment on above: Order Comment: Order Date: 10/28/24 Order Info: [id number] - CMP Order Info: [id number] - LIPID Order Info: [id number] - MG Performed By: #### L 500.4100, L100.0100, L500.4050, L501.5200 #### [facility] [address] [place], [address] Cholesterol [Mass/Vol] 163 mg/dL Normal <=200 [facility] Comment on above: Order Comment: Order Date: 10/28/24 Order Info: [id number] - CMP Order Info: [id number] - LIPID Order Info: [id number] - MG Result Comment: Chol esterol level, Desirable <200 mg/dL Borderline high cholesterol 200-239 mg/dL High cholesterol >=240 mg/dL Recommendations of the NCEP Adult Treatment Panel for the following risk-cutoff thresholds for the [place] population. Performed By: #### L 500.4100, L100.0100, L500.4050, L501.5200 #### [facility] [address] [place], [address] Cholesterol in HDL [Mass/Vol] 46 mg/dL Normal [facility] Comment on above: Order Comment: Order Date: 10/28/24 Order Info: [id number] - CMP Order Info: [id number] - LIPID Order Info: [id number] - MG Result Comment: Patricia onal Cholesterol Education Program (NCEP) guidelines: <40 mg/dL: Low HDL-cholesterol (major risk factor for CHD) >= 60 mg/dL: High HDL-cholesterol (negative risk factor for CHD) HDL-cholesterol is affected by a number of factors, e.g. smoking, exercise, hormones, sex and age. Performed By: #### L 500.4100, L100.0100, L500.4050, L501.5200 #### [facility] [address] [place], [address] Cholesterol in LDL [Mass/Vol] 83 mg/dL Normal [facility] Comment on above: Order Comment: Order Date: 10/28/24 Order Info: [id number]- - CMP Order Info: [id number] - LIPID Order Info: [id number] - MG Result Comment: Bord atqdrg=832-118 mg/dL Higher Phcg=057 mg/dL or greater Performed By: #### L 500.4100, L100.0100, L500.4050, L501.5200 #### [facility] [address] [place], [address] Cholesterol in VLDL [Mass/Vol] 34 mg/dL Normal 5-40 [facility] Comment on above: Order Comment: Order Date: 10/28/24 Order Info: [id number]- - CMP Order Info: [id number] - LIPID Order Info: [id number] - MG Performed By: #### L 500.4100, L100.0100, L500.4050, L501.5200 #### [facility] [address] [place], [address] Triglyceride [Mass/Vol] 172 mg/dL Normal [facility] Comment on above: Order Comment: Order Date: 10/28/24 Order Info: [id number] - CMP Order Info: [id number] - LIPID Order Info: [id number] - MG Result Comment: The drugs N-Acetylcysteine and Metamizole may falsely depress this assay. Normal range: <150 mg/dL Borderline High: 150-199 mg/dL High: 200-499 mg/dL Very High: >500 mg/dL Performed By: #### L 500.4100, L100.0100, L500.4050, L501.5200 #### [facility] [address] [place], [address] MCV (mean corpuscular volume ) determinationOrdered By: Clyde Linda on 10-28-2024 MCV (RBC) [Entitic vol] 89.4 fL 81-99 [facility] Magnesiumon 10-28-2024 Magnesium [Mass/Vol] 2.2 mg/dL Normal 1.5-2.[address] [facility] Comment on above: Order Comment: Order Date: 10/28/24Order Info: [id number] - CMPOrder Info: [id number] - LIPIDOrder Info: [id number] - MG Performed By: #### L 500.4100, L100.0100, L500.4050, L501.5200 ####[facility] [address] [place], [address] Magnesium measurement (mass/ volume)Ordered By: Clyde Linda on 10-28-2024 Magnesium (Unsp spec) [Mass/Vol] 2.2 mg/dL 1.5-2.2 [facility] Mean corpuscular hemoglobin (MCH) determinationOrdered By: Clyde Linda on 10-28-2024 MCH (RBC) [Entitic mass] 29.1 pg 27.0-32.0 [facility] Mean corpuscular hemoglobin concentration (MCHC) determinationOrdered By: Clyde Linda on 10-28-2024 MCHC (RBC) [Mass/Vol] 32.5 g/dL 32-36 [facility] Mean platelet volume determi nationOrdered By: Clyde Linda on 10-28-2024 Platelet mean volume (Bld) [Entitic vol] 11.5 fL 6.2-12.0 [facility] Monocyte percentageOrdered B y: Clyde Linda on 10-28-2024 Monocytes/100 WBC (Bld) 6.8 % 0-10 [facility] Neutrophil percentageOrdered By: Clyde Linda on 10-28-2024 Neutrophils/100 WBC (Bld) 57.5 % 47-70 [facility] Nucleated red blood cell per centageOrdered By: Clyde Linda on 10-28-2024 Nucleated RBC/100 WBC (Bld) [Ratio] 0 % 0-5 [facility] Platelet countOrdered By: Key Linda on 10-28-2024 Platelets (Bld) [#/Vol] 278 10*3/uL 150-450 [facility] Potassium measurement (mass/ volume)Ordered By: Clyde Linda on 10-28-2024 Potassium (Unsp spec) [Mass/Vol] 3.9 mmol/L 3.3-5.1 [facility] RBC Auto (Bld) [#/Vol]Ordere d By: Clyde Linda on 10-28-2024 RBC (Bld) [#/Vol] 4.44 10*6/uL 4.2-5.4 [facility] Screening total cholesterol/ high density lipoprotein (HDL) cholesterol ratioOrdered By: Clyde Linda on 10-28-2024 Cholesterol.total/Choles terol in HDL [Mass ratio] 3.58 {ratio} [facility] Serum creatinine measurement (mass/volume)Ordered By: Clyde Linda on 10-28-2024 Creatinine [Mass/Vol] 0.73 mg/dL 0.70-1.20 [facility] Serum globulin measurementOr dered By: Clyde Linda on 10-28-2024 Globulin (S) [Mass/Vol] 2.9 g/dL 2.2-4.2 [facility] Serum glucose measurement (m ass/volume)Ordered By: Clyde Linda on 10-28-2024 Glucose [Mass/Vol] 95 mg/dL 70-99 [facility] Serum or plasma alanine bennett otransferase (ALT) measurementOrdered By: Clyde Linda on 10-28-2024 ALT [Catalytic activity/Vol] 21 U/L <35 [facility] Serum or plasma albumin ralph urement (mass/volume)Ordered By: Clyde Linda on 10-28-2024 Albumin [Mass/Vol] 4.3 g/dL 3.4-4.8 [facility] Serum or plasma albumin/glob ulin mass ratioOrdered By: Clyde Linda on 10-28-2024 Albumin/Globulin [Mass ratio] 1.5 {ratio} 0.9-2.4 [facility] Serum or plasma alkaline gavi sphatase measurementOrdered By: Clyde Linda on 10-28-2024 ALP [Catalytic activity/Vol] 60 U/L 35-104 [facility] Serum or plasma calcium ralph urement (mass/volume)Ordered By: Clyde Linda on 10-28-2024 Calcium [Mass/Vol] 9.3 mg/dL 7.6-11.0 [facility] Serum or plasma cholesterol in HDL measurement (mass/volume)Ordered By: Clyde Linda on 10-28-2024 Cholesterol in HDL [Mass/Vol] 46 mg/dL >40 [facility] Comment on above: National Cholesterol Education Program (NCEP) guidelines:<40 mg/dL: Low HDL-cholesterol (major risk factor for CHD)>= 60 mg/dL: High HDL-cholesterol (negative risk factor for CHD)HDL-cholesterol is affected by a number of factors, e.g. smoking, exercise, hormones, sex and age. Serum or plasma cholesterol measurement (mass/volume)Ordered By: Clyde Linda on 10-28-2024 Cholesterol [Mass/Vol] 163 mg/dL <201 [facility] Comment on above: Cholesterol level, D esirable <200 mg/dLBorderline high cholesterol 200-239 mg/dLHigh cholesterol >=240 mg/dLRecommendations of the NCEP Adult Treatment Panel for the following risk-cutoff thresholds for the [place] population. Serum or plasma urea nitroge n measurement (mass/volume)Ordered By: Clyde Linda on 10-28-2024 Urea nitrogen [Mass/Vol] 11 mg/dL 4-19 [facility] Sodium levelOrdered By: Clyde Linda on 10-28-2024 Sodium [Moles/Vol] 143 mmol/L 133-145 [facility] Total proteinOrdered By: Anthony Linda on 10-28-2024 Protein [Mass/Vol] 7.2 g/dL 5.9-8.4 [facility] Triglycerides measurementOrd ered By: Clyde Linda on 10-28-2024 Triglyceride [Mass/Vol] 172 mg/dL <199 [facility] Comment on above: The drugs N-Acetylcy steine and Metamizole may falsely depress this assay. Normal range: <150 mg/dLBorderline High: 150-199 mg/dLHigh: 200-499 mg/dLVery High: >500 mg/dL Vitamin D,25 Hydroxyon 10-28 Vitamin D 25-OH 37.4 ng/mL Normal 30-100 [facility] Comment on above: Order Comment: Order Date: 10/28/24Order Info: [id number] - CMPOrder Info: [id number] - LIPIDOrder Info: [id number] - MG Result Comment: Bruna min D Status Deficiency: <20 ng/mL (50nmol/L) Insufficiency: 20-30 ng/mL (50-75 nmol/L) Sufficiency: 30-100 ng/mL (75-250 nmol/L) Toxicity: >100 ng/mL (>250 nmol/L) Performed By: #### L 506.1001 ####[facility] [address] [facility] [place], [place], [address] White blood cell (WBC) count Ordered By: Clyde Linda on 10-28-2024 WBC (Bld) [#/Vol] 6.8 10*3/uL 4.4-11.0 [facility] Abdomen Single Viewon 2024 Abdomen Single View [facility] Imaging Services [address] [place], [place] [id number] Abdomen Single View MR#: [id number] Acct: [id number] Name: SUELLEN LONG Rep #: [id number] : 1950 F 73 From: Karyn alonso MD PCP: Dr. 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: REG CLI Study: Abdomen Single View Date of Exam: 09/30/24 Exam# [id number] Ordering Dr: Yanira Barahona MD PROCEDURE: ABDOMEN SINGLE VIEW 09/30/2024 REASON FOR EXAM: KUB- KIDNEY STONES TECHNIQUE: Single view abdomen. COMPARISON: 09/18/2024. FINDINGS: Left renal/proximal ureteral stones are again noted with the largest measuring 1.6 cm. 8 mm calcification/stone is noted at the topography of the left sacral ala at S1 level. Moderate amount of fecal residue in the large bowels. Normal visualized lung bases. There is an unremarkable bowel gas pattern. There is no demonstrated free abdominal air. Normal visualized liver. Normal visualized spleen. Normal visualized kidneys. The soft tissue structures of the pelvis are unremarkable. Moderate diffuse spondylosis. RAD/Abdomen Single View IMPRESSION: Left renal/proximal ureteral stones are again noted with the largest measuring 1.6 cm. 8 mm calcification/stone is noted at the topography of the left sacral ala at S1 level. Moderate amount of fecal residue in the large bowels. Reading Location: [place] [address] CC: Dr. Yanira Barahona MD; Dr. Clyde Linda MD [employer] Operator: Signed Normal [facility] Abdomen/Pelvis without Conto n 09-18-2024 Abdomen/Pelvis without Cont [facility] Imaging Services [address] [place] [id number] Abdomen/Pelvis without Cont MR#: [id number] Acct: [id number] Name: SUELLEN LONG Rep #: [id number] : 1950 F 73 From: Pk Dominguez PCP: Dr. 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: REG CLI Study: Abdomen/Pelvis without Cont Date of Exam: 08/22 Exam# [id number] Ordering Dr: Yanira Barahona MD PROCEDURE: ABDOMEN/PELVIS WITHOUT CONT 09/18/2024 REASON FOR EXAM: KIDNEY STONE TECHNIQUE: Abdomen and pelvis CT without intravenous contrast. Noncontrast technique limits evaluation of the abdominal and pelvic viscera. Coronal and Sagittal reconstruction series were provided. One or more dose reduction techniques were used (e.g., Automated exposure control, adjustment of the mA and/or kV according to patient size, use of iterative reconstruction technique). COMPARISON: Ultrasound from 09/01/2024 FINDINGS: Limited sections of the lung bases demonstrate no focal pulmonary mass. The liver, spleen, pancreas, and both adrenal glands demonstrate no acute findings. 1.4 x 1.4 cm hypodensity within the liver likely a cyst. Multiple large coarse stones within the left kidney and proximal ureter measuring 1.6 x 0.7 cm and 1.2 x 0.9 cm without definite left sided hydronephrosis. These large stones are likely nonobstructive or partially obstructive. The right collecting system is unremarkable. The gallbladder contains a tiny gallstone. No CT evidence of acute cholecystitis. Small hiatal hernia; otherwise stomach is unremarkable. The aorta and IVC demonstrate no acute findings. Moderate to extensive atherosclerosis of the abdominal vasculature. There is no free air, free fluid or intestinal obstruction. The small bowel loops are not dilated. The appendix is normal. No bowel obstruction. Extensive colonic diverticulosis without acute diverticulitis. Mesenteric stranding with prominent mesenteric lymph nodes may reflect panniculitis. The pelvic structures are intact. There is no solid pelvic mass. Pelvic pessary is noted. The urinary bladder is distended. Visualized osseous structures demonstrate no acute abnormality. Tiny fat containing anterior pelvic hernia. CT/Abdomen/Pelvis without Cont IMPRESSION: Multiple large coarse stones within the left kidney and proximal ureter measuring 1.6 x 0.7 cm and 1.2 x 0.9 cm without definite left sided hydronephrosis. These large stones are likely nonobstructive or at most partially obstructive. Extensive colonic diverticulosis without acute diverticulitis. No bowel obstruction. Mesenteric stranding with prominent mesenteric lymph nodes may reflect panniculitis. Reading Location: [id number] CC: Dr. Yanira Barahona MD; Dr. Clyde Linda MD [employer] Operator: Signed Normal [facility] Kidney and Bladderon 025 Kidney and Bladder [facility] Imaging Services [address] [place] [address] Kidney and Bladder MR#: [id number] Acct: [id number] Name: SUELLEN LONG Rep #: [id number] : 1950 F 73 From: Doroteo sousa MD PCP: Dr. 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: REG CLI Study: Kidney and Bladder Date of Exam: 09/01/24 Exam# [id number] Ordering Dr: Yanira Barahona MD PROCEDURE: KIDNEY AND BLADDER 09/01/2024 REASON FOR EXAM: UTI TECHNIQUE: Bilateral renal ultrasound. COMPARISON: None FINDINGS: RIGHT Kidney Size: 11.6 cm x 5.4 cm x 5.9 cm Volume: 190 mL Cortical Thickness (if discernible): 1.1 cm. (>6mm is normal) Fullness of the right renal pelvis. LEFT Kidney Size: 10.2 cm x 5.2 cm x 5.3 cm Volume: 147 mL Cortical Thickness (if discernible): 1.7 cm (>6mm is normal) There is an 8 mm x 10 mm x 4 mm nonobstructive left intrarenal calculus. US/Kidney and Bladder IMPRESSION: Fullness of the right renal pelvis. 8 mm x 10 mm x 4 mm nonobstructive left intrarenal calculus. Reading Location: [facility] CC: Dr. Yanira Barahona MD; Dr. Clyde Linda MD [employer] Operator: Signed Normal [facility] Urine Cultureon 08-01-2024 [facility] PLEASE ADD CULTURE TO URINE SPECIMEN COLLECTED 07/29/24 PER Escherichia coli [place] Count >100,000 Escherichia coli: REACTION Ampicillin Islt TIMOTHY <=2 Ampicillin+Sulbac Islt TIMOTHY <=2 S Cefepime Islt TIMOTHY <=0.12 S cefTRIAXone Islt TIMOTHY <=0.25 S Ciprofloxacin Islt TIMOTHY <=0.06 S B-Lactamase Extended Susc Islt NEG Gentamicin Islt TIMOTHY <=1 S levoFLOXacin Islt TIMOTHY <=0.12 S Meropenem Islt TIMOTHY <=0.25 S Nitrofurantoin Islt TIMOTHY <=16 S Pip+Tazo Islt TIMOTHY <=4 S TMP SMX Islt TIMOTHY <=20 S Normal [facility] Comment on above: Performed By: #### L 500.4100, L506.1001, L100.0100, L400.0001, M100.2200 ####[facility] [address] [place], [place], [id number] Urine cultureOrdered By: Anthony Linda on 07-30-2024 Bacteria identified Cx Nom (U) Escherichia coli Abnormal [facility] Absolute lymphocyte countOrd ered By: Clyde Linda on 07-29-2024 Lymphocytes Auto (Unsp spec) [#/Vol] 2.10 10*3/uL 0.83-4.51 [facility] Absolute neutrophil countOrd ered By: Clyde Linda on 07-29-2024 Neutrophils (Bld) [#/Vol] 4.4 10*3/uL 2.0-7.7 [facility] Automated lymphocyte count a s percentage of total leukocytesOrdered By: Clyde Linda on 07-29-2024 Lymphocytes/100 WBC Auto (Unsp spec) 29.3 % 19-41 [facility] Basophil percentageOrdered B y: Clyde Linda on 07-29-2024 Basophils/100 WBC (Bld) 1.1 % High 0-1 [facility] Bilirubin Test strip Ql (U)O rdered By: Clyde Linda on 07-29-2024 Bilirubin Ql (U) Negative Negative [facility] CBC W/Diff, Automatedon 04- Absolute Lymph 2.10 X10 3/uL Normal 0.83-4.51 [facility] Comment on above: Performed By: #### L 500.4100, L506.1001, L100.0100, L400.0001, M100.2200 ####[facility] [address] [place], [address] Absolute Neut 4.4 X10 3/uL Normal 2.0-7.7 [facility] Comment on above: Performed By: #### L 500.4100, L506.1001, L100.0100, L400.0001, M100.2200 ####[facility] [address] [place], [address] Basophils/100 WBC (Bld) 1.1 % High 0-1 [facility] Comment on above: Performed By: #### L 500.4100, L506.1001, L100.0100, L400.0001, M100.2200 ####[facility] [address] [place], [address] Eosinophils/100 WBC (Bld) 2.1 % Normal 0-5 [facility] Comment on above: Performed By: #### L 500.4100, L506.1001, L100.0100, L400.0001, M100.2200 ####[facility] [address] [place], [address] Erythrocyte distribution width (RBC) [Ratio] 14.0 % Normal 11.6-14.6 [facility] Comment on above: Performed By: #### L 500.4100, L506.1001, L100.0100, L400.0001, M100.2200 ####[facility] [address] [place], [address] Hematocrit (Bld) [Volume fraction] 39.7 % Normal 37-47 [facility] Comment on above: Performed By: #### L 500.4100, L506.1001, L100.0100, L400.0001, M100.2200 ####[facility] [address] [place], [address] Hemoglobin (Bld) [Mass/Vol] 13.0 g/dL Normal 12.0-15.0 [facility] Comment on above: Performed By: #### L 500.4100, L506.1001, L100.0100, L400.0001, M100.2200 ####[facility] [address] [place], [address] IG% 0.100 Normal 0.0-0.9 [facility] Comment on above: Result Comment: IG% - Immature Granulocytes (promyelocytes, myelocytes and metamyelocytes) > 1% indicates that a LEFT SHIFT is Present. Performed By: #### L 500.4100, L506.1001, L100.0100, L400.0001, M100.2200 ####[facility] [address] [place], [address] Lymphocytes/100 WBC (Bld) 29.3 % Normal 19-41 [facility] Comment on above: Performed By: #### L 500.4100, L506.1001, L100.0100, L400.0001, M100.2200 ####[facility] [address] [place], [address] MCH (RBC) [Entitic mass] 29.7 pg Normal 27.0-32.0 [facility] Comment on above: Performed By: #### L 500.4100, L506.1001, L100.0100, L400.0001, M100.2200 ####[facility] [address] [place], [address] MCHC (RBC) [Mass/Vol] 32.7 g/dL Normal 32-36 [facility] Comment on above: Performed By: #### L 500.4100, L506.1001, L100.0100, L400.0001, M100.2200 ####[facility] [address] [place], [address] MCV (RBC) [Entitic vol] 90.8 fL Normal 81-99 [facility] Comment on above: Performed By: #### L 500.4100, L506.1001, L100.0100, L400.0001, M100.2200 ####[facility] [address] [place], [address] Monocytes/100 WBC (Bld) 6.0 % Normal 0-10 [facility] Comment on above: Performed By: #### L 500.4100, L506.1001, L100.0100, L400.0001, M100.2200 ####[facility] [address] [place], [address] Neutrophils/100 WBC (Bld) 61.4 % Normal 47-70 [facility] Comment on above: Performed By: #### L 500.4100, L506.1001, L100.0100, L400.0001, M100.2200 ####[facility] [address] [place], [address] Nucleated RBC (Bld) [#/Vol] 0 10*3/uL Normal 0-5 [facility] Comment on above: Performed By: #### L 500.4100, L506.1001, L100.0100, L400.0001, M100.2200 ####[facility] [address] [place], [address] Platelet mean volume (Bld) [Entitic vol] 11.0 fL Normal 6.2-12.0 [facility] Comment on above: Performed By: #### L 500.4100, L506.1001, L100.0100, L400.0001, M100.2200 ####[facility] [address] [place], [address] Platelets (Bld) [#/Vol] 302 10*3/uL Normal 150-450 [facility] Comment on above: Performed By: #### L 500.4100, L506.1001, L100.0100, L400.0001, M100.2200 ####[facility] [address] [place], [address] RBC (Bld) [#/Vol] 4.37 10*6/uL Normal 4.2-5.4 [facility] Comment on above: Performed By: #### L 500.4100, L506.1001, L100.0100, L400.0001, M100.2200 ####[facility] [address] [place], [address] RDW SD 47.1 fl High 35.1-43.9 [facility] Comment on above: Performed By: #### L 500.4100, L506.1001, L100.0100, L400.0001, M100.2200 ####[facility] [address] [place], [address] WBC (Bld) [#/Vol] 7.2 10*3/uL Normal 4.4-11.0 [facility] Comment on above: Performed By: #### L 500.4100, L506.1001, L100.0100, L400.0001, M100.2200 ####[facility] [address] [place], [address] Calculated very low density lipoprotein (VLDL) cholesterol measurementOrdered By: Clyde Linda on 07-29-2024 Calculated very low density lipoprotein (VLDL) cholesterol measurement 18 mg/dL 5-40 [facility] VLDL Cholesterol 18 mg/dL 5-40 [facility] Eosinophil percentageOrdered By: Clyde Linda on 07-29-2024 Eosinophils/100 WBC (Bld) 2.1 % 0-5 [facility] Epithelial cells.squamous LM Ql (Urine sed)Ordered By: Clyde Linda on 07-29-2024 Epithelial cells.squamous LM.HPF (Urine sed) [#/Area] 5 /[HPF] 5-10 [facility] Erythrocyte distribution wid th (RBC) [Ratio]Ordered By: Clyde Linda on 07-29-2024 Erythrocyte distribution width (RBC) [Entitic vol] 47.1 fL High 35.1-43.9 [facility] Erythrocyte distribution wid th ratioOrdered By: Clyde Linda on 07-29-2024 Erythrocyte distribution width (RBC) [Ratio] 14.0 % 11.6-14.6 [facility] Erythrocyte distribution wid th standard deviationOrdered By: Clyde Linda on 07-29-2024 Erythrocyte distribution width (RBC) [Ratio] 47.1 fl High 35.1-43.9 [facility] Glucose Ql (U)Ordered By: Key Linda on 07-29-2024 Urine Glucose (UA) Normal mg/dl Normal [facility] Hematocrit Auto (Bld) [Volum e fraction]Ordered By: Clyde Linda on 07-29-2024 Hematocrit (Bld) [Volume fraction] 39.7 % 37-47 [facility] Hemoglobin measurementOrdere d By: Clyde Linda on 07-29-2024 Hemoglobin (Bld) [Mass/Vol] 13.0 g/dL 12.0-15.0 [facility] Immature granulocytes/100 WB C Auto (Bld)Ordered By: Clyde Linda on 07-29-2024 Immature granulocytes/100 WBC (Bld) 0.100 % 0.0-0.9 [facility] Comment on above: IG% - Immature Granu locytes (promyelocytes, myelocytes and metamyelocytes) > 1% indicates that a LEFT SHIFT is Present. Ketones Test strip Ql (U)Ord ered By: Clyde Linda on 07-29-2024 Ketones Ql (U) Negative Negative [facility] LDL calc ser/plasOrdered By: Clyde Linda on 07-29-2024 Cholesterol in LDL [Mass/Vol] 87 mg/dL [facility] Comment on above: Silooktpbp=534-672 m g/dL & Higher Phyg=321 mg/dL or greater LDL Cholesterol, Calculated 87 mg/dL [facility] Comment on above: Vbsqsgurmw=610-971 m g/dL & Higher Znql=607 mg/dL or greater Lipid Profileon 07-29-2024 CHOL:HDL 2.79 Normal [facility] Comment on above: Performed By: #### L 500.4100, L506.1001, L100.0100, L400.0001, M100.2200 ####[facility] [address] [place], [place], [id number] Cholesterol [Mass/Vol] 164 mg/dL Normal <=200 [facility] Comment on above: Result Comment: Chol esterol level, Desirable <200 mg/dL Borderline high cholesterol 200-239 mg/dL High cholesterol >=240 mg/dL Recommendations of the NCEP Adult Treatment Panel for the following risk-cutoff thresholds for the [place] population. Performed By: #### L 500.4100, L506.1001, L100.0100, L400.0001, M100.2200 ####[facility] [address] [place], [address] Cholesterol in HDL [Mass/Vol] 59 mg/dL Normal [facility] Comment on above: Result Comment: Patricia onal Cholesterol Education Program (NCEP) guidelines: <40 mg/dL: Low HDL-cholesterol (major risk factor for CHD) >= 60 mg/dL: High HDL-cholesterol (negative risk factor for CHD) HDL-cholesterol is affected by a number of factors, e.g. smoking, exercise, hormones, sex and age. Performed By: #### L 500.4100, L506.1001, L100.0100, L400.0001, M100.2200 ####[facility] [address] [place], [address] Cholesterol in LDL [Mass/Vol] 87 mg/dL Normal [facility] Comment on above: Result Comment: Bord tqeeaa=465-198 mg/dL Higher Mqnw=640 mg/dL or greater Performed By: #### L 500.4100, L506.1001, L100.0100, L400.0001, M100.2200 ####[facility] [address] [place], [address] Cholesterol in VLDL [Mass/Vol] 18 mg/dL Normal 5-40 [facility] Comment on above: Performed By: #### L 500.4100, L506.1001, L100.0100, L400.0001, M100.2200 ####[facility] [address] [place], [address] Triglyceride [Mass/Vol] 91 mg/dL Normal [facility] Comment on above: Result Comment: The drugs N-Acetylcysteine and Metamizole may falsely depress this assay. Normal range: <150 mg/dL Borderline High: 150-199 mg/dL High: 200-499 mg/dL Very High: >500 mg/dL Performed By: #### L 500.4100, L506.1001, L100.0100, L400.0001, M100.2200 ####[facility] [address] [place], [address] Lymphocytes Auto (Unsp spec) [#/Vol]Ordered By: Clyde Linda on 07-29-2024 Lymphocytes (Bld) [#/Vol] 2.10 10*3/uL 0.83-4.51 [facility] Lymphocytes/100 WBC Auto (Un sp spec)Ordered By: Clyde Linda on 07-29-2024 Lymphocytes/100 WBC (Bld) 29.3 % 19-41 [facility] MCV (mean corpuscular volume ) determinationOrdered By: Clyde Linda on 07-29-2024 MCV (RBC) [Entitic vol] 90.8 fL 81-99 [facility] Mean corpuscular hemoglobin (MCH) determinationOrdered By: Clyde Linda on 07-29-2024 MCH (RBC) [Entitic mass] 29.7 pg 27.0-32.0 [facility] Mean corpuscular hemoglobin concentration (MCHC) determinationOrdered By: Clyde Linda on 07-29-2024 MCHC (RBC) [Mass/Vol] 32.7 g/dL 32-36 [facility] Mean platelet volume determi nationOrdered By: Clyde Linda on 07-29-2024 Platelet mean volume (Bld) [Entitic vol] 11.0 fL 6.2-12.0 [facility] Microscopic analysis of urin e for red blood cells (RBC)Ordered By: Clyde Linda on 07-29-2024 Microscopic analysis of urine for red blood cells (RBC) 25-50 SEEN /hpf 0-5 [facility] Urine RBC 25-50 SEEN /hpf 0-5 [facility] Monocyte percentageOrdered B y: Clyde Linda on 07-29-2024 Monocytes/100 WBC (Bld) 6.0 % 0-10 [facility] Mucus LM Ql (Urine sed)Order ed By: Clyde Linda on 07-29-2024 Mucus Ql (Urine sed) 0 SEEN /hpf [facility] Neutrophil percentageOrdered By: Clyde Linda on 07-29-2024 Neutrophils/100 WBC (Bld) 61.4 % 47-70 [facility] Nitrite Test strip Ql (U)Ord ered By: Clyde Linda on 07-29-2024 Nitrite Ql (U) Positive High Negative [facility] Nucleated red blood cell per centageOrdered By: Clyde Linda on 07-29-2024 Nucleated RBC/100 WBC (Bld) [Ratio] 0 % 0-5 [facility] Platelet countOrdered By: Key Linda on 07-29-2024 Platelets (Bld) [#/Vol] 302 10*3/uL 150-450 [facility] Protein Test strip Ql (U)Ord ered By: Clyde Linda on 07-29-2024 Protein Ql (U) 30 mg/dl High Negative [facility] RBC Auto (Bld) [#/Vol]Ordere d By: Clyde Linda on 07-29-2024 RBC (Bld) [#/Vol] 4.37 10*6/uL 4.2-5.4 [facility] Screening total cholesterol/ high density lipoprotein (HDL) cholesterol ratioOrdered By: Clyde Linda on 07-29-2024 Cholesterol.total/Choles terol in HDL [Mass ratio] 2.79 {ratio} [facility] Serum or plasma cholesterol in HDL measurement (mass/volume)Ordered By: Clyde Linda on 07-29-2024 Cholesterol in HDL [Mass/Vol] 59 mg/dL >40 [facility] Comment on above: National Cholesterol Education Program (NCEP) guidelines:<40 mg/dL: Low HDL-cholesterol (major risk factor for CHD)>= 60 mg/dL: High HDL-cholesterol (negative risk factor for CHD)HDL-cholesterol is affected by a number of factors, e.g. smoking, exercise, hormones, sex and age. Serum or plasma cholesterol measurement (mass/volume)Ordered By: Clyde Linda on 07-29-2024 Cholesterol [Mass/Vol] 164 mg/dL <201 [facility] Comment on above: Cholesterol level, D esirable <200 mg/dLBorderline high cholesterol 200-239 mg/dLHigh cholesterol >=240 mg/dLRecommendations of the NCEP Adult Treatment Panel for the following risk-cutoff thresholds for the [place] population. Squamous epithelial cells de tection in urine sediment by light microscopyOrdered By: Clyde Linda on 07-29-2024 Epithelial cells.squamous LM Ql (Urine sed) 5-10 SEEN /hpf 5-10 [facility] Triglycerides measurementOrd ered By: Clyde Linda on 07-29-2024 Triglyceride [Mass/Vol] 91 mg/dL <199 [facility] Comment on above: The drugs N-Acetylcy steine and Metamizole may falsely depress this assay. Normal range: <150 mg/dLBorderline High: 150-199 mg/dLHigh: 200-499 mg/dLVery High: >500 mg/dL Urinalysis, Completeon 07-29 BACTERIA 4+ /hpf Normal None Seen [facility] Comment on above: Order Comment: Urine , Random Performed By: #### L 500.4100, L506.1001, L100.0100, L400.0001, M100.2200 ####[facility] [address] [place], [address] EPI,SQUAMOUS 5-10 SEEN Normal -10 [facility] Comment on above: Order Comment: Urine , Random Performed By: #### L 500.4100, L506.1001, L100.0100, L400.0001, M100.2200 ####[facility] [address] [place], [address] RBC 25-50 SEEN Normal 0-5 [facility] Comment on above: Order Comment: Urine , Random Performed By: #### L 500.4100, L506.1001, L100.0100, L400.0001, M100.2200 ####[facility] [address] [place], [address] WBC 50-100 SEEN Normal 0-5 [facility] Comment on above: Order Comment: Urine , Random Performed By: #### L 500.4100, L506.1001, L100.0100, L400.0001, M100.2200 ####[facility] [address] [place], [address] Mucus Ql (Urine sed) 0 SEEN Normal [facility] Comment on above: Order Comment: Urine , Random Performed By: #### L 500.4100, L506.1001, L100.0100, L400.0001, M100.2200 ####[facility] [address] [place], [place], [id number] Urine blood detectionOrdered By: Clyde Linda on 07-29-2024 Urine Occult Blood 250 /ul High Negative [facility] Urine clarityOrdered By: Anthony Linda on 07-29-2024 Clarity (U) Sl. Cloudy Clear [facility] Urine color determinationOrd ered By: Clyde Linda on 07-29-2024 Color (U) Yellow Yellow [facility] Urine glucose detectionOrder ed By: Clyde Linda on 07-29-2024 Glucose Ql (U) Normal mg/dl Normal [facility] Urine leukocyte esterase det ection by dipstickOrdered By: Clyde Linda on 07-29-2024 Leukocyte esterase Test strip Ql (U) 100 /ul High Negative [facility] Urine pHOrdered By: Clyde godwin on 07-29-2024 pH (U) 5.0 [pH] 5.0 - 8.0 [facility] Urine sediment bacteria coun t by microscopy (number/high power field)Ordered By: Clyde Linda on 07-29-2024 Bacteria LM.HPF (Urine sed) [#/Area] 4 /[HPF] None Seen [facility] Urine specific gravity measu rementOrdered By: Clyde Linda on 07-29-2024 Specific gravity (U) [Rel density] 1.025 1.002-1.030 [facility] Urine urobilinogen measureme ntOrdered By: Clyde Linda on 07-29-2024 Urobilinogen Ql (U) Normal mg/dl Normal [facility] Urobilinogen Ql (U)Ordered B y: Clyde Linda on 07-29-2024 Urine Urobilinogen Normal mg/dl Normal [facility] Vitamin D, 25-hydroxyOrdered By: Clyde Linda on 07-29-2024 Vitamin D 25-Hydroxy 27.7 ng/mL Low 30-[address] [facility] Comment on above: Vitamin D StatusDefi ciency: <20 ng/mL (50nmol/L)Insufficiency: 20-30 ng/mL (50-75 nmol/L)Sufficiency: 30-100 ng/mL (75-250 nmol/L)Toxicity: >100 ng/mL (>250 nmol/L) Vitamin D,25 Hydroxyon 07-29 Vitamin D 25-OH 27.7 ng/mL Low 30-100 [facility] Comment on above: Result Comment: Bruna min D Status Deficiency: <20 ng/mL (50nmol/L) Insufficiency: 20-30 ng/mL (50-75 nmol/L) Sufficiency: 30-100 ng/mL (75-250 nmol/L) Toxicity: >100 ng/mL (>250 nmol/L) Performed By: #### L 500.4100, L506.1001, L100.0100, L400.0001, M100.2200 ####[facility] [address] [facility] [place], [address] White blood cell (WBC) count Ordered By: Clyde Linda on 07-29-2024 WBC (Bld) [#/Vol] 7.2 10*3/uL 4.4-11.0 [facility] White blood cell countOrdere d By: Clyde Linda on 07-29-2024 Urine WBC 50-100 SEEN /hpf 0-5 [facility] White blood cell count 50-100 SEEN /hpf 0-5 [facility] Dexa Bone Density Studyon Dexa Bone Density Study [facility] Imaging Services [address], [place] [id number] Dexa Bone Density Study MR#: [id number] Acct: [id number] Name: SUELLEN LONG Rep #: [id number] : 1950 F 73 From: Doroteo sousa MD PCP: Dr. 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: REG CLI Study: Dexa Bone Density Study Date of Exam: 02/12/24 Exam# [id number] Ordering Dr: Clyde Linda MD -[id number] STUDY: DUAL ENERGY X-RAY ABSORPTIOMETRY / DXA REASON FOR EXAM: Female, 73 years old. 733.00OsteoporosisB ONE DENSITY REASON FOR EXAM TECHNIQUE: Bone Mineral Density (BMD) measurements of lumbar spine and bilateral hips were obtained. COMPARISON: Comparison is made with prior study dated February 01, 2022. FINDINGS: Lumbar Spine (L1-L4): g/cm2 (0.862) / T-score (-2.2) / Z-score (0.3) Findings are suggestive of osteopenia with a high fracture risk. Left Femur Total: g/cm2 (0.859) / T-score (-0.7) / Z-score (1.1) Left Femoral Neck: g/cm2 (0.685) / T-score (-1.5) / Z-score (0.6) Right Femur Total: g/cm2 (0.716) / T-score (-1.9) / Z-score (-0.1) Right Femoral Neck: g/cm2 (0.601) / T-score (-2.2) / Z-score (-0.2) The T-Scores on the most recent prior examination were: Lumbar Spine (L1-L4): There has been improvement of bone density since the previous examination. Left Femur Total: which represents an improvement of 6.1%. Right Femur Total: which represents an improvement of 3.8%. BD/Dexa Bone Density Study IMPRESSION: The patient is considered osteopenic as outlined below according to World Lane Organization (WHO) criteria with a high fracture risk. There has been improvement of bone density since the previous examination. Reference Information: The T-score is the number of standard deviations above or below the standard which is normal for young adults at their peak bone mineral density. The World Health Organization (WHO) interprets the T-scores as follows: Above -1 Normal bone density Between -1 and -2.5 Osteopenia Equal to / or below -2.5 Osteoporosis As a practical clinical guideline, osteopenia may be graded as follows: Mild -1 through -1.5 Moderate -1.6 through -2.0 Severe -2.1 through -2.4 The Z-score is the number of standard deviations above or below age-matched controls. A Z-score of less than -1.5 would be considered abnormal. References: 1. NIH Osteoporosis and Related Bone Diseases www osteo.org 2. International Society for Clinical Densitometry www iscd.org 3. National Osteoporosis Foundation www nof.org Electronically Signed: Doroteo Diaz MD at 13:10 EDT , CC: Dr. Clyde Linda MD [employer] Operator: Signed Normal [facility] SCRN MAMM (CAD)W/RAMIREZ BILATo n 02-12-2024 SCRN MAMM (CAD)W/RAMIREZ BILAT [facility] Imaging Services [address], [place] [address] SCRN MAMM (CAD)W/RAMIREZ BILAT MR#: [id number] Acct: [id number] Name: SUELLEN LONG Rep #: [id number] : 1950 F 73 From: Doroteo sousa MD PCP: Dr. 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: REG [facility] Study: SCRN MAMM (CAD)W/RAMIREZ BILAT Date of Exam: 01/21 07/13 Exam# [id number] Ordering Dr: Clyde Linda MD -[id number] MAMMOGRAPHY - BILATERAL SCREENING REASON FOR EXAM: Female, 73 years old. Routine annual screening examination. PERTINENT HISTORY: Non-contributory. TECHNIQUE: Digital bilateral breast ramirez (3D mammographic acquisition) in the CC and MLO projections. 2-D mediolateral oblique (MLO) and craniocaudad (CC) views of both breasts were obtained. CAD: Full Field Digital Mammography with Computer Added Detection was performed. COMPARISON: Comparison is made with prior study February 04, 2023 and February 01, 2022. FINDINGS: Breast Composition: The breasts are heterogeneously dense, which may obscure small masses. There are no dominant masses or suspicious calcifications. Stable bilateral secretory calcifications. No other significant abnormalities are identified. There has been no significant change since the prior study. BI/SCRN MAMM (CAD)W/RAMIREZ BILAT IMPRESSION: Stable bilateral screening mammogram. Yearly follow-up mammogram recommended. (A) ASSESSMENT CATEGORY: BIRADS Category 2: Benign. A letter regarding these results will be sent to the patient by the facility within 30 days. Approximately 10% of breast cancers are not detected by mammography. A normal mammogram should not delay biopsy of a clinically suspicious abnormality. [id number] Electronically Signed: Doroteo Diaz MD at 14:20 EDT , CC: Dr. Clyde Linda MD [employer] Operator: Signed Normal [facility] CBC W/Diff, Automatedon 12-22 Absolute Lymph 1.82 X10 3/uL Normal 0.83-4.51 [facility] Comment on above: Order Comment: Order Date: 01/14/24Order Info: [id number] - CBCD Performed By: #### L 500.7135, L501.1090, L501.5200, L100.0100, L500.4050 ####[facility] [address] [place], [address] Absolute Neut 4.0 X10 3/uL Normal 2.0-7.7 [facility] Comment on above: Order Comment: Order Date: 01/14/24Order Info: 018- - CBCD Performed By: #### L 500.4100, L501.9520, L501.5200, L100.0100, L500.4050 ####[facility] [address] [place], [address] Basophils/100 WBC (Bld) 1.2 % High 0-1 [facility] Comment on above: Order Comment: Order Date: 01/14/24Order Info: 018- - CBCD Performed By: #### L 500.4100, L501.9520, L501.5200, L100.0100, L500.4050 ####[facility] [address] [place], [address] Eosinophils/100 WBC (Bld) 1.2 % Normal 0-5 [facility] Comment on above: Order Comment: Order Date: 01/14/24Order Info: 018- - CBCD Performed By: #### L 500.4100, L501.9520, L501.5200, L100.0100, L500.4050 ####[facility] [address] [place], [address] Erythrocyte distribution width (RBC) [Ratio] 14.4 % Normal 11.6-14.6 [facility] Comment on above: Order Comment: Order Date: 01/14/24Order Info: 018- - CBCD Performed By: #### L 500.4100, L501.9520, L501.5200, L100.0100, L500.4050 ####[facility] [address] [place], [address] Hematocrit (Bld) [Volume fraction] 42.1 % Normal 37-47 [facility] Comment on above: Order Comment: Order Date: 01/14/24Order Info: [id number] - CBCD Performed By: #### L 500.4100, L501.9520, L501.5200, L100.0100, L500.4050 ####[facility] [address] [place], [address] Hemoglobin (Bld) [Mass/Vol] 13.4 g/dL Normal 12.0-15.0 [facility] Comment on above: Order Comment: Order Date: 01/14/24Order Info: [id number] - CBCD Performed By: #### L 500.4100, L501.9520, L501.5200, L100.0100, L500.4050 ####[facility] [address] [place], [address] IG% 0.300 Normal 0.0-0.9 [facility] Comment on above: Order Comment: Order Date: 01/14/24Order Info: [id number] - CBCD Result Comment: IG% - Immature Granulocytes (promyelocytes, myelocytes and metamyelocytes) > 1% indicates that a LEFT SHIFT is Present. Performed By: #### L 500.4100, L501.9520, L501.5200, L100.0100, L500.4050 ####[facility] [address] [place], [address] Lymphocytes/100 WBC (Bld) 28.0 % Normal 19-41 [facility] Comment on above: Order Comment: Order Date: 01/14/24Order Info: 0184-1 - CBCD Performed By: #### L 500.4100, L501.9520, L501.5200, L100.0100, L500.4050 ####[facility] [address] [place], [address] MCH (RBC) [Entitic mass] 28.6 pg Normal 27.0-32.0 [facility] Comment on above: Order Comment: Order Date: 01/14/24Order Info: 0184-1 - CBCD Performed By: #### L 500.4100, L501.9520, L501.5200, L100.0100, L500.4050 ####[facility] [address] [place], [address] MCHC (RBC) [Mass/Vol] 31.8 g/dL Low 32-36 [facility] Comment on above: Order Comment: Order Date: 01/14/24Order Info: 0184-1 - CBCD Performed By: #### L 500.4100, L501.9520, L501.5200, L100.0100, L500.4050 ####[facility] [address] [place], [address] MCV (RBC) [Entitic vol] 90.0 fL Normal 81-99 [facility] Comment on above: Order Comment: Order Date: 01/14/24Order Info: [id number] - CBCD Performed By: #### L 500.4100, L501.9520, L501.5200, L100.0100, L500.4050 ####[facility] [address] [place], [address] Monocytes/100 WBC (Bld) 7.7 % Normal 0-10 [facility] Comment on above: Order Comment: Order Date: 01/14/24Order Info: 0184-1 - CBCD Performed By: #### L 500.4100, L501.9520, L501.5200, L100.0100, L500.4050 ####[facility] [address] [place], [address] Neutrophils/100 WBC (Bld) 61.6 % Normal 47-70 [facility] Comment on above: Order Comment: Order Date: 01/14/24Order Info: 0184-1 - CBCD Performed By: #### L 500.4100, L501.9520, L501.5200, L100.0100, L500.4050 ####[facility] [address] [place], [address] Nucleated RBC (Bld) [#/Vol] 0 10*3/uL Normal 0-5 [facility] Comment on above: Order Comment: Order Date: 01/14/24Order Info: 0184-1 - CBCD Performed By: #### L 500.4100, L501.9520, L501.5200, L100.0100, L500.4050 ####[facility] [address] [place], [address] Platelet mean volume (Bld) [Entitic vol] 10.9 fL Normal 6.2-12.0 [facility] Comment on above: Order Comment: Order Date: 01/14/24Order Info: 018- - CBCD Performed By: #### L 500.4100, L501.9520, L501.5200, L100.0100, L500.4050 ####[facility] [address] [place], [address] Platelets (Bld) [#/Vol] 306 10*3/uL Normal 150-450 [facility] Comment on above: Order Comment: Order Date: 01/14/24Order Info: 018- - CBCD Performed By: #### L 500.4100, L501.9520, L501.5200, L100.0100, L500.4050 ####[facility] [address] [place], [address] RBC (Bld) [#/Vol] 4.68 10*6/uL Normal 4.2-5.4 [facility] Comment on above: Order Comment: Order Date: 01/14/24Order Info: 0184-1 - CBCD Performed By: #### L 500.4100, L501.9520, L501.5200, L100.0100, L500.4050 ####[facility] [address] [place], [address] RDW SD 47.1 fl High 35.1-43.9 [facility] Comment on above: Order Comment: Order Date: 01/14/24Order Info: 018-1 - CBCD Performed By: #### L 500.4100, L501.9520, L501.5200, L100.0100, L500.4050 ####[facility] [address] [place], [address] WBC (Bld) [#/Vol] 6.5 10*3/uL Normal 4.4-11.0 [facility] Comment on above: Order Comment: Order Date: 01/14/24Order Info: 018- - CBCD Performed By: #### L 500.4100, L501.9520, L501.5200, L100.0100, L500.4050 ####[facility] [address] [place], [address] Comprehensive Metabolic Prof ilon 01-14-2024 Albumin [Mass/Vol] 4.1 g/dL Normal 3.2-5.0 [facility] Comment on above: Order Comment: Order Date: 01/14/24Order Info: [id number] - CMPOrder Info: [id number] - LIPIDOrder Info: - MGOrder Info: 301-3 - TSH Performed By: #### L 500.4100, L501.9520, L501.5200, L100.0100, L500.4050 ####[facility] [address] [place], [address] Albumin/Globulin [Mass ratio] 1.1 {ratio} Normal 0.9-2.4 [facility] Comment on above: Order Comment: Order Date: 01/14/24Order Info: [id number] - CMPOrder Info: [id number] - LIPIDOrder Info: - MGOrder Info: [id number] - TSH Performed By: #### L 500.4100, L501.9520, L501.5200, L100.0100, L500.4050 ####[facility] [address] [place], [address] ALK P 61 U/L Normal 45-117 [facility] Comment on above: Order Comment: Order Date: 01/14/24Order Info: [id number] - CMPOrder Info: [id number] - LIPIDOrder Info: [id number] - MGOrder Info: [id number] - TSH Performed By: #### L 500.4100, L501.9520, L501.5200, L100.0100, L500.4050 ####[facility] [address] [place], [address] ALT [Catalytic activity/Vol] 19 U/L Normal 13-56 [facility] Comment on above: Order Comment: Order Date: 01/14/24Order Info: 86-1 - CMPOrder Info: [id number] - LIPIDOrder Info: [id number] - MGOrder Info: [id number] - TSH Performed By: #### L 500.4100, L501.9520, L501.5200, L100.0100, L500.4050 ####[facility] [address] [place], [address] AST [Catalytic activity/Vol] 14 U/L Low 15-37 [facility] Comment on above: Order Comment: Order Date: 01/14/24Order Info: [id number] - CMPOrder Info: [id number] - LIPIDOrder Info: [id number] - MGOrder Info: [id number] - TSH Performed By: #### L 500.4100, L501.9520, L501.5200, L100.0100, L500.4050 ####[facility] [address] [place], [address] Bilirubin [Mass/Vol] 0.40 mg/dL Normal 0.20-1.[address] [facility] Comment on above: Order Comment: Order Date: 01/14/24Order Info: [id number] - CMPOrder Info: [id number] - LIPIDOrder Info: [id number] - MGOrder Info: 301-3 - TSH Result Comment: For patients on eltrombopag therapy, use of Dimension [place] TBIL is not recommended. Performed By: #### L 500.4100, L501.9520, L501.5200, L100.0100, L500.4050 ####[facility] [address] [place], [address] BUN/CRE 28.6 RATIO High 10-20 [facility] Comment on above: Order Comment: Order Date: 01/14/24Order Info: [id number] - CMPOrder Info: [id number] - LIPIDOrder Info: [id number] - MGOrder Info: [id number] - TSH Performed By: #### L 500.4100, L501.9520, L501.5200, L100.0100, L500.4050 ####[facility] [address] [place], [address] CA,Total 9.6 mg/dL Normal 8.5-10.1 [facility] Comment on above: Order Comment: Order Date: 01/14/24Order Info: 07- - CMPOrder Info: [id number] - LIPIDOrder Info: [id number] - MGOrder Info: [id number] - TSH Performed By: #### L 500.4100, L501.9520, L501.5200, L100.0100, L500.4050 ####[facility] [address] [place], [address] Chloride [Moles/Vol] 111 mmol/L High 98-[address] [facility] Comment on above: Order Comment: Order Date: 01/14/24Order Info: [id number] - CMPOrder Info: [id number] - LIPIDOrder Info: [id number] - MGOrder Info: [id number] - TSH Performed By: #### L 500.4100, L501.9520, L501.5200, L100.0100, L500.4050 ####[facility] [address] [place], [address] CO2 [Moles/Vol] 25.0 mmol/L Normal 21.0-32.0 [facility] Comment on above: Order Comment: Order Date: 01/14/24Order Info: [id number] - CMPOrder Info: [id number] - LIPIDOrder Info: [id number] - MGOrder Info: [id number] - TSH Performed By: #### L 500.4100, L501.9520, L501.5200, L100.0100, L500.4050 ####[facility] [address] [place], [address] Creatinine [Mass/Vol] 0.73 mg/dL Normal 0.55-1.02 [facility] [place] Comment on above: Order Comment: Order Date: 01/14/24Order Info: [id number] - CMPOrder Info: [id number] - LIPIDOrder Info: [id number] - MGOrder Info: [id number] - TSH Result Comment: The validity of the calculated GFR GFRAA in patients over 70 years has not been determined. Clinical correlation is essential. Performed By: #### L 500.4100, L501.9520, L501.5200, L100.0100, L500.4050 ####[facility] [address] [place], [address] EST GFR - AA 100 mL/min Normal >60 [facility] Comment on above: Order Comment: Order Date: 01/14/24Order Info: [id number] - CMPOrder Info: [id number] - LIPIDOrder Info: [id number] - MGOrder Info: [id number] - TSH Result Comment: Afri can Czech GFR Calc Performed By: #### L 500.4100, L501.9520, L501.5200, L100.0100, L500.4050 ####[facility] [address] [place], [address] GAP 6 Normal 5-15 [facility] Comment on above: Order Comment: Order Date: 01/14/24Order Info: [id number] - CMPOrder Info: [id number] - LIPIDOrder Info: [id number] - MGOrder Info: [id number] - TSH Performed By: #### L 500.4100, L501.9520, L501.5200, L100.0100, L500.4050 ####[facility] [address] [place], [address] GFR/1.73 sq M.predicted among non-blacks MDRD (S/P/Bld) [Vol rate/Area] 82 mL/min/{1.73_m2} Normal >60 [facility] Comment on above: Order Comment: Order Date: 01/14/24Order Info: [id number] - CMPOrder Info: [id number] - LIPIDOrder Info: [id number] - MGOrder Info: [id number] - TSH Result Comment: Non- GFR Calc Performed By: #### L 500.4100, L501.9520, L501.5200, L100.0100, L500.4050 ####[facility] [address] [place], [address] Globulin (S) [Mass/Vol] 3.6 g/dL Normal 2.2-4.2 [facility] Comment on above: Order Comment: Order Date: 01/14/24Order Info: [id number] - CMPOrder Info: [id number] - LIPIDOrder Info: [id number] - MGOrder Info: [id number] - TSH Performed By: #### L 500.4100, L501.9520, L501.5200, L100.0100, L500.4050 ####[facility] [address] [place], [address] Glucose [Mass/Vol] 95 mg/dL Normal 74-106 [facility] Comment on above: Order Comment: Order Date: 01/14/24Order Info: [id number] - CMPOrder Info: [id number] - LIPIDOrder Info: [id number] - MGOrder Info: [id number] - TSH Performed By: #### L 500.4100, L501.9520, L501.5200, L100.0100, L500.4050 ####[facility] [address] [place], [address] Potassium [Moles/Vol] 3.5 mmol/L Normal 3.5-5.1 [facility] [place] Comment on above: Order Comment: Order Date: 01/14/24Order Info: [id number] - CMPOrder Info: - LIPIDOrder Info: [id number] - MGOrder Info: 3 - TSH Performed By: #### L 500.4100, L501.9520, L501.5200, L100.0100, L500.4050 ####[facility] [address] [place], [address] Sodium [Moles/Vol] 142 mmol/L Normal 136-145 [facility] Comment on above: Order Comment: Order Date: 01/14/24Order Info: [id number] - CMPOrder Info: - LIPIDOrder Info: [id number] - MGOrder Info: [id number] - TSH Performed By: #### L 500.4100, L501.9520, L501.5200, L100.0100, L500.4050 ####[facility] [address] [place], [address] T PROT 7.7 g/dL Normal 6.4-8.2 [facility] Comment on above: Order Comment: Order Date: 01/14/24Order Info: [id number] - CMPOrder Info: [id number] - LIPIDOrder Info: [id number] - MGOrder Info: [id number] - TSH Performed By: #### L 500.4100, L501.9520, L501.5200, L100.0100, L500.4050 ####[facility] [address] [place], [address] Urea nitrogen [Mass/Vol] 21 mg/dL High 7-18 [facility] Comment on above: Order Comment: Order Date: 01/14/24Order Info: [id number]- - CMPOrder Info: [id number] - LIPIDOrder Info: [id number] - MGOrder Info: [id number] - TSH Performed By: #### L 500.4100, L501.9520, L501.5200, L100.0100, L500.4050 ####[facility] [address] [place], [address] Lipid Profileon 01-14-2024 Cholesterol [Mass/Vol] 251 mg/dL High 200 [facility] Comment on above: Order Comment: Order Date: 01/14/24Order Info: [id number] - CMPOrder Info: - LIPIDOrder Info: [id number] - MGOrder Info: [id number] - TSH Result Comment: <200 mg/dL Desirable 200-240 mg/dL Borderline >240 mg/dL High Risk Performed By: #### L 500.4100, L501.9520, L501.5200, L100.0100, L500.4050 ####[facility] [address] [place], [address] Cholesterol in HDL [Mass/Vol] 58 mg/dL Normal [facility] Comment on above: Order Comment: Order Date: 01/14/24Order Info: [id number] - CMPOrder Info: - LIPIDOrder Info: [id number] - MGOrder Info: [id number] - TSH Result Comment: The drugs N-Acetylcysteine and Metamizole may falsely depress this assay. Reference Range HDL <40 mg/dL Low HDL Cholesterol HDL >or= 60 mg/dL High HDL Cholesterol Performed By: #### L 500.4100, L501.9520, L501.5200, L100.0100, L500.4050 ####[facility] [address] [place], [address] Cholesterol in LDL [Mass/Vol] 165 mg/dL High 0-130 [facility] Comment on above: Order Comment: Order Date: 01/14/24Order Info: [id number] - CMPOrder Info: [id number] - LIPIDOrder Info: [id number] - MGOrder Info: [id number] - TSH Performed By: #### L 500.4100, L501.9520, L501.5200, L100.0100, L500.4050 ####[facility] [address] [place], [address] Cholesterol in VLDL [Mass/Vol] 28 mg/dL Normal 5-40 [facility] Comment on above: Order Comment: Order Date: 01/14/24Order Info: [id number]- - CMPOrder Info: [id number] - LIPIDOrder Info: [id number] - MGOrder Info: [id number] - TSH Performed By: #### L 500.4100, L501.9520, L501.5200, L100.0100, L500.4050 ####[facility] [address] [place], [address] Triglyceride [Mass/Vol] 140 mg/dL Normal [facility] Comment on above: Order Comment: Order Date: 01/14/24Order Info: [id number]- - CMPOrder Info: [id number] - LIPIDOrder Info: [id number] - MGOrder Info: [id number] - TSH Result Comment: The drugs N-Acetylcysteine and Metamizole may falsely depress this assay. Serum Triglycerides Reference Interval Normal <150 mg/dL Borderline high 150 - 199 mg/dL High 200 - 499 mg/dL Very High > or = 500 mg/dL Performed By: #### L 500.4100, L501.9520, L501.5200, L100.0100, L500.4050 ####[facility] [address] [place], [address] Magnesiumon 01-14-2024 Magnesium [Mass/Vol] 2.1 mg/dL Normal 1.6-2.[address] [facility] Comment on above: Order Comment: Order Date: 01/14/24Order Info: [id number] - CMPOrder Info: [id number] - LIPIDOrder Info: - MGOrder Info: [id number] - TSH Performed By: #### L 500.4100, L501.9520, L501.5200, L100.0100, L500.4050 ####[facility] [address] [place], [address] Thyroid Stim Hormone (TSH)on 01-14-2024 TSH 1.030 uIU/mL Normal 0.358-3.740 [facility] Comment on above: Order Comment: Order Date: 01/14/24Order Info: [id number] - CMPOrder Info: - LIPIDOrder Info: - MGOrder Info: [id number] - TSH Performed By: #### L 500.4100, L501.9520, L501.5200, L100.0100, L500.4050 ####[facility] [address] [place], [address] Urinalysis, Completeon 01-13 CAST,FINE GRAN 5-10 SEEN Normal 0-5 [facility] Comment on above: Order Comment: CLEAN CATCH Performed By: #### L 400.0001 #### [facility] [address] [place], [address] CAST,WBC 0-5 SEEN Normal None Seen [facility] Comment on above: Order Comment: CLEAN CATCH Performed By: #### L 400.0001 #### [facility] [address] [place], [address] BACTERIA 3+ /hpf Normal None Seen [facility] Comment on above: Order Comment: CLEAN CATCH Performed By: #### L 400.0001 #### [facility] [address] [place], [address] EPI,RENAL 0-5 SEEN Normal 0-5 [facility] Comment on above: Order Comment: CLEAN CATCH Performed By: #### L 400.0001 #### [facility] [address] [place], [address] EPI,SQUAMOUS 0-5 SEEN Normal 5-10 [facility] Comment on above: Order Comment: CLEAN CATCH Performed By: #### L 400.0001 #### [facility] [address] [place], [address] EPI,TRANSITION 0-5 SEEN Normal 0-5 [facility] Comment on above: Order Comment: CLEAN CATCH Performed By: #### L 400.0001 #### [facility] [address] [place], [address] RBC 10-25 SEEN Normal 0-5 [facility] Comment on above: Order Comment: CLEAN CATCH Performed By: #### L 400.0001 #### [facility] [address] [place], [address] WBC 25-50 SEEN Normal 0-5 [facility] Comment on above: Order Comment: CLEAN CATCH Performed By: #### L 400.0001 #### [facility] [address] [place], [address] Mucus Ql (Urine sed) 0 SEEN Normal [facility] Comment on above: Order Comment: CLEAN CATCH Performed By: #### L 400.0001 #### [facility] [address] [place], [address] Absolute lymphocyte countOrd ered By: Clyde Linda on 07-09-2023 Lymphocytes Auto (Unsp spec) [#/Vol] 2.14 10*3/uL 0.83-4.51 [facility] Automated lymphocyte count a s percentage of total leukocytesOrdered By: Clyde Linda on 07-09-2023 Lymphocytes/100 WBC Auto (Unsp spec) 32.9 % 19-41 [facility] Basophil percentageOrdered B y: Clyde Linda on 07-09-2023 Basophils/100 WBC (Bld) 0.9 % 0-1 [facility] Bilirubin [Mass/Vol] 0.80 mg/dL 0.20-1.[address] [facility] Comment on above: For patients on eltr ombopag therapy, use of [place] TBIL is not recommended. Chloride [Moles/Vol] 106 mmol/L 98-[address] [facility] Eosinophils/100 WBC (Bld) 1.5 % 0-5 [facility] Glucose [Mass/Vol] 80 mg/dL 74-106 [facility] Hemoglobin (Bld) [Mass/Vol] 13.5 g/dL 12.0-15.0 [facility] Monocytes/100 WBC (Bld) 6.2 % 0-10 [facility] Neutrophils (Bld) [#/Vol] 3.8 10*3/uL 2.0-7.7 [facility] Neutrophils/100 WBC (Bld) 58.3 % 47-70 [facility] Potassium [Moles/Vol] 3.8 mmol/L 3.5-5.1 [facility] [place] Protein [Mass/Vol] 7.7 g/dL 6.4-8.2 [facility] Sodium [Moles/Vol] 140 mmol/L 136-145 [facility] WBC (Bld) [#/Vol] 6.5 10*3/uL 4.4-11.0 [facility] Determination of erythrocyte mean corpuscular volume (MCV)Ordered By: Clyde Linda on 07-09-2023 MCV (RBC) [Entitic vol] 90.3 fL 81-99 [facility] Erythrocyte distribution wid th ratioOrdered By: Clyde Linda on 07-09-2023 Erythrocyte distribution width (RBC) [Ratio] 13.9 % 11.6-14.6 [facility] Erythrocyte distribution wid th standard deviationOrdered By: Clyde Linda on 07-09-2023 Erythrocyte distribution width (RBC) [Entitic vol] 46.3 fL 35.1-43.9 [facility] Hematocrit Auto (Bld) [Volum e fraction]Ordered By: Clyde Linda on 07-09-2023 Hematocrit (Bld) [Volume fraction] 42.1 % 37-47 [facility] Immature granulocytes/100 WB C Auto (Bld)Ordered By: Clyde Linda on 03-19-2024 Immature granulocytes/100 WBC (Bld) 0.200 % 0.0-0.9 [facility] Comment on above: IG% - Immature Granu locytes (promyelocytes, myelocytes and metamyelocytes) > 1% indicates that a LEFT SHIFT is Present. Laboratory - Chemistry and C hemistry - challengeOrdered By: Clyde Linda on 07-09-2023 Albumin/Globulin [Mass ratio] 1.0 {ratio} 0.9-2.4 [facility] ALP [Catalytic activity/Vol] 60 U/L 45-117 [facility] ALT [Catalytic activity/Vol] 22 U/L 13-56 [facility] CO2 [Moles/Vol] 26.0 mmol/L 21.0-32.0 [facility] Globulin (S) [Mass/Vol] 3.9 g/dL 2.2-4.2 [facility] Urea nitrogen/Creatinine [Mass ratio] 21.4 mg/mg 10-20 [facility] Laboratory - Hematology and Cell countsOrdered By: Clyde Linda on 07-09-2023 MCH (RBC) [Entitic mass] 29.0 pg 27.0-32.0 [facility] MCHC (RBC) [Mass/Vol] 32.1 g/dL 32-36 [facility] [place] Nucleated RBC/100 WBC (Bld) [Ratio] 0 % 0-5 [facility] Platelet mean volume (Bld) [Entitic vol] 11.1 fL 6.2-12.0 [facility] Platelets (Bld) [#/Vol] 283 10*3/uL 150-450 [facility] No Panel InformationOrdered By: Clyde Linda on 07-09-2023 Estimated GFR (MDRD) Amer 105 mL/min >60 [facility] Comment on above: GFR Calc Estimated GFR (MDRD) Non-Af Amer 87 mL/min >60 [facility] Comment on above: Non- GFR Calc Vitamin D 25-Hydroxy 34.8 ng/mL [facility] Comment on above: Vitamin D 25(OH) Sta tus Range Deficiency <20 ng/mL (50nmol/L) Insufficiency 20 - 30 ng/mL (50 - 75 nmol/L) Sufficiency 30 - 100 ng/mL (75 - 250 nmol/L) Toxicity >100 ng/mL (>250 nmol/L) RBC Auto (Bld) [#/Vol]Ordere d By: Clyde Linda on 07-09-2023 RBC (Bld) [#/Vol] 4.66 10*6/uL 4.2-5.4 [facility] Serum or plasma calcium ralph urement (mass/volume)Ordered By: Clyde Linda on 07-09-2023 Calcium [Mass/Vol] 9.2 mg/dL 8.5-10.1 [facility] Serum or plasma creatinine m easurement (mass/volume)Ordered By: Clyde Linda on 07-09-2023 Creatinine [Mass/Vol] 0.70 mg/dL 0.55-1.02 [facility] [place] Comment on above: The validity of the calculated GFR & GFRAA in patients over 70 years has not been determined. Clinical correlation is essential. Serum or plasma thyroid stim ulating hormone (TSH) measurement (units/volume)Ordered By: Clyde Linda on 07-09-2023 TSH Qn 0.87 uIU/mL 0.358-3.74 [facility] Serum or plasma urea nitroge n measurement (mass/volume)Ordered By: Clyde Linda on 07-09-2023 Urea nitrogen [Mass/Vol] 15 mg/dL 7-18 [facility] Thin prep Papanicolaou smear with manual screeningOrdered By: Clyde Linda on 07-09-2023 Thin prep Papanicolaou smear with manual screening 3.8 g/dL 3.2-5.0 [facility] Thin prep Papanicolaou smear with manual screening 21 U/L 15-37 [facility] Thin prep Papanicolaou smear with manual screening 8 5-15 [facility] Absolute lymphocyte countOrd ered By: Dr. Linda on 07-03-2022 Lymphocytes Auto (Unsp spec) [#/Vol] 1.82 10*3/uL 0.83-4.51 [facility] Basophil percentageOrdered B y: Dr. Linda on 07-03-2022 Basophils/100 WBC (Bld) 1.0 % 0-1 [facility] Bilirubin [Mass/Vol] 0.50 mg/dL 0.20-1.[address] [facility] Comment on above: For patients on eltr ombopag therapy, use of [place] TBIL is not recommended. Chloride [Moles/Vol] 109 mmol/L 98-[address] [facility] Eosinophils/100 WBC (Bld) 1.7 % 0-5 [facility] Glucose [Mass/Vol] 83 mg/dL 74-106 [facility] Neutrophils (Bld) [#/Vol] 3.5 10*3/uL 2.0-7.7 [facility] Neutrophils/100 WBC (Bld) 59.4 % 47-70 [facility] Potassium [Moles/Vol] 4.2 mmol/L 3.5-5.1 [facility] [place] Protein [Mass/Vol] 7.8 g/dL 6.4-8.2 [facility] Sodium [Moles/Vol] 141 mmol/L 136-145 [facility] WBC (Bld) [#/Vol] 5.9 10*3/uL 4.4-11.0 [facility] Blood erythrocytes count (nu mber/volume)Ordered By: Dr. Linda on 07-03-2022 RBC (Bld) [#/Vol] 4.57 10*6/uL 4.2-5.4 [facility] Blood hemoglobin measurement (mass/volume)Ordered By: Dr. Linda on 07-03-2022 Hemoglobin (Bld) [Mass/Vol] 13.0 g/dL 12.0-15.0 [facility] Blood lymphocytes/100 leukoc ytesOrdered By: Dr. Linda on 07-03-2022 Lymphocytes/100 WBC (Bld) 30.8 % 19-41 [facility] Blood monocytes/100 leukocyt esOrdered By: Dr. Linda on 07-03-2022 Monocytes/100 WBC (Bld) 6.9 % 0-10 [facility] Blood platelet mean volumeOr dered By: Dr. Linda on 07-03-2022 Platelet mean volume (Bld) [Entitic vol] 11.0 fL 6.2-12.0 [facility] Determination of erythrocyte mean corpuscular volume (MCV)Ordered By: Dr. Linda on 03-14-2023 MCV (RBC) [Entitic vol] 90.6 fL 81-99 [facility] Hematocrit Auto (Bld) [Volum e fraction]Ordered By: Dr. Linda on 07-03-2022 Hematocrit (Bld) [Volume fraction] 41.4 % 37-47 [facility] Iron measurement (mass/mass) Ordered By: Dr. Linda on 07-03-2022 Iron (Unsp spec) [Mass/Mass] 67 ug/dL 50-170 [facility] Laboratory - Chemistry and C hemistry - challengeOrdered By: Dr. Linda on 07-03-2022 ALP [Catalytic activity/Vol] 72 U/L 45-117 [facility] ALT [Catalytic activity/Vol] 26 U/L 13-56 [facility] CO2 [Moles/Vol] 24.0 mmol/L 21.0-32.0 [facility] Cobalamin (Vitamin B12) [Mass/Vol] 310 pg/mL 211-911 [facility] Globulin (S) [Mass/Vol] 4.0 g/dL 2.2-4.2 [facility] Urea nitrogen/Creatinine [Mass ratio] 39.9 mg/mg 10-20 [facility] - Hematology and Cell countsOrdered By: Dr. Linda on 07-03-2022 Erythrocyte distribution width (RBC) [Entitic vol] 49.3 fL 35.1-43.9 [facility] Erythrocyte distribution width (RBC) [Ratio] 14.8 % 11.6-14.6 [facility] Immature granulocytes/100 WBC (Bld) 0.200 % 0.0-0.9 [facility] Comment on above: IG% - Immature Granu locytes (promyelocytes, myelocytes and metamyelocytes) > 1% indicates that a LEFT SHIFT is Present. MCH (RBC) [Entitic mass] 28.4 pg 27.0-32.0 [facility] Nucleated RBC/100 WBC (Bld) [Ratio] 0 % 0-5 [facility] MCHC Auto (RBC) [Mass/Vol]Or dered By: Dr. Linda on 07-03-2022 MCHC (RBC) [Mass/Vol] 31.4 g/dL 32-36 [facility] [place] No Panel InformationOrdered By: Dr. Linda on 07-03-2022 Estimated GFR (MDRD) Amer 110 mL/min >60 [facility] Comment on above: GFR Calc Estimated GFR (MDRD) Non-Af Amer 91 mL/min >60 [facility] Comment on above: Non- GFR Calc Total Iron Binding Capacity 337 ug/dL 250-450 [facility] Vitamin D 25-Hydroxy 30.0 ng/mL [facility] Comment on above: Vitamin D 25(OH) Sta tus Range Deficiency <20 ng/mL (50nmol/L) Insufficiency 20 - 30 ng/mL (50 - 75 nmol/L) Sufficiency 30 - 100 ng/mL (75 - 250 nmol/L) Toxicity >100 ng/mL (>250 nmol/L) Platelets bldOrdered By: Dr. Linda on 07-03-2022 Platelets (Bld) [#/Vol] 341 10*3/uL 150-450 [facility] Serum or plasma albumin ralph urement (mass/volume)Ordered By: Dr. Linda on 07-03-2022 Albumin [Mass/Vol] 3.8 g/dL 3.2-5.0 [facility] Serum or plasma albumin/glob ulin mass ratioOrdered By: Dr. Linda on 07-03-2022 Albumin/Globulin [Mass ratio] 1.0 {ratio} 0.9-2.4 [facility] Serum or plasma calcium ralph urement (mass/volume)Ordered By: Dr. Linda on 07-03-2022 Calcium [Mass/Vol] 8.9 mg/dL 8.5-10.1 [facility] Serum or plasma creatinine m easurement (mass/volume)Ordered By: Dr. Linda on 07-03-2022 Creatinine [Mass/Vol] 0.68 mg/dL 0.55-1.02 [facility] [place] Comment on above: The validity of the calculated GFR & GFRAA in patients over 70 years has not been determined. Clinical correlation is essential. Serum or plasma ferritin maryellen surement (mass/volume)Ordered By: Dr. Linda on 07-03-2022 Ferritin [Mass/Vol] 49 ng/mL 8-252 [facility] Serum or plasma folate measu rement (mass/volume)Ordered By: Dr. Linda on 07-03-2022 Folate [Mass/Vol] 23.60 ng/mL 3.1-55.4 [facility] Serum or plasma urea nitroge n measurement (mass/volume)Ordered By: Dr. Linda on 07-03-2022 Urea nitrogen [Mass/Vol] 27 mg/dL 7-18 [facility] Thin prep Papanicolaou smear with manual screeningOrdered By: Dr. Linda on 07-03-2022 Thin prep Papanicolaou smear with manual screening 20 U/L 15-37 [facility] Thin prep Papanicolaou smear with manual screening 8 5-15 [facility] Basophil percentageon 2021 Bilirubin [Mass/Vol] 0.50 mg/dL 0.20-1.[address] [facility] Work Phone: Comment on above: For patients on eltr ombopag therapy, use of [place] TBIL is not recommended. Chloride [Moles/Vol] 111 mmol/L 98-[address] [facility] Work Phone: Glucose [Mass/Vol] 82 mg/dL 74-106 [facility] Work Phone: Potassium [Moles/Vol] 3.8 mmol/L 3.5-5.1 [facility] [place] Work Phone: Protein [Mass/Vol] 7.4 g/dL 6.4-8.2 [facility] Work Phone: Sodium [Moles/Vol] 141 mmol/L 136-145 [facility] Work Phone: Laboratory - Chemistry and C hemistry - challengeon 02-21-2022 ALP [Catalytic activity/Vol] 82 U/L 45-117 [facility] Work Phone: [phone] ALT [Catalytic activity/Vol] 20 U/L 13-56 [facility] Work Phone: [phone] CO2 [Moles/Vol] 24.0 mmol/L 21.0-32.0 [facility] Work Phone: Globulin (S) [Mass/Vol] 3.8 g/dL 2.2-4.2 [facility] Work Phone: Urea nitrogen/Creatinine [Mass ratio] 25.8 mg/mg 10- [facility] Work Phone: No Panel Informationon 02-21 Estimated GFR (MDRD) Amer 122 mL/min >60 [facility] Work Phone: Comment on above: GFR Calc Estimated GFR (MDRD) Non-Af Amer 101 mL/min >60 [facility] Work Phone: Comment on above: Non- GFR Calc Vitamin D 25-Hydroxy 14.6 ng/mL [facility] Work Phone: Comment on above: Vitamin D 25(OH) Sta tus Range Deficiency <20 ng/mL (50nmol/L) Insufficiency 20 - 30 ng/mL (50 - 75 nmol/L) Sufficiency 30 - 100 ng/mL (75 - 250 nmol/L) Toxicity >100 ng/mL (>250 nmol/L) Serum or plasma albumin ralph urement (mass/volume)on 02-21-2022 Albumin [Mass/Vol] 3.6 g/dL 3.2-5.0 [facility] Work Phone: Serum or plasma albumin/glob ulin mass ratioon 02-21-2022 Albumin/Globulin [Mass ratio] 0.9 {ratio} 0.9-2.4 [facility] Work Phone: Serum or plasma calcium ralph urement (mass/volume)on 02-21-2022 Calcium [Mass/Vol] 9.0 mg/dL 8.5-10.1 [facility] Work Phone: Serum or plasma creatinine m easurement (mass/volume)on 02-21-2022 Creatinine [Mass/Vol] 0.62 mg/dL 0.55-1.02 [facility] Work Phone: Comment on above: The validity of the calculated GFR & GFRAA in patients over 70 years has not been determined. Clinical correlation is essential. Serum or plasma urea nitroge n measurement (mass/volume)on 02-21-2022 Urea nitrogen [Mass/Vol] 16 mg/dL 7-18 [facility] Work Phone: Thin prep Papanicolaou smear with manual screeningon 02-21-2022 Thin prep Papanicolaou smear with manual screening 18 U/L 15-37 [facility] Work Phone: Thin prep Papanicolaou smear with manual screening 6 5-15 [facility] Work Phone: Iron measurement (mass/mass) on 12-12-2021 Iron (Unsp spec) [Mass/Mass] 77 ug/dL 50-170 [facility] Work Phone: No Panel Informationon 12-12 Total Iron Binding Capacity 319 ug/dL 250-450 [facility] Work Phone: Serum or plasma ferritin maryellen surement (mass/volume)on 12-12-2021 Ferritin [Mass/Vol] 59 ng/mL 8-252 [facility] Work Phone: Absolute lymphocyte counton 10-09-2021 Lymphocytes Auto (Unsp spec) [#/Vol] 2.07 10*3/uL 0.83-4.51 [facility] Work Phone: Basophil percentageon 2021 Basophils/100 WBC (Bld) 1.0 % 0-1 [facility] Work Phone: Bilirubin [Mass/Vol] 0.20 mg/dL 0.20-1.[address] [facility] Work Phone: Comment on above: For patients on eltr ombopag therapy, use of [place] TBIL is not recommended. Chloride [Moles/Vol] 111 mmol/L 98-[address] [facility] Work Phone: Eosinophils/100 WBC (Bld) 2.4 % 0-5 [facility] Work Phone: Glucose [Mass/Vol] 79 mg/dL 74-106 [facility] Work Phone: [phone] Neutrophils (Bld) [#/Vol] 3.1 10*3/uL 2.0-7.7 [facility] Work Phone: [phone] Neutrophils/100 WBC (Bld) 53.0 % 47-70 [facility] Work Phone: [phone] Potassium [Moles/Vol] 3.6 mmol/L 3.5-5.1 [facility] Work Phone: [phone] Protein [Mass/Vol] 7.7 g/dL 6.4-8.2 [facility] Work [facility]: [phone] Sodium [Moles/Vol] 143 mmol/L 136-145 [facility] Work Phone: [phone] WBC (Bld) [#/Vol] 5.9 10*3/uL 4.4-11.0 [facility] Work Phone: Blood erythrocytes count (nu mber/volume)on 10-09-2021 RBC (Bld) [#/Vol] 4.58 10*6/uL 4.2-5.4 [facility]: Blood hemoglobin measurement (mass/volume)on 10-09-2021 Hemoglobin (Bld) [Mass/Vol] 13.4 g/dL 12.0-15.0 [facility] System Work Phone: Blood lymphocytes/100 leukoc yteson 10-09-2021 Lymphocytes/100 WBC (Bld) 35.4 % 19-41 [facility] Work Phone: [phone] Blood monocytes/100 leukocyt eson 10-09-2021 Monocytes/100 WBC (Bld) 7.9 % 0-10 [facility] Work Phone: Blood platelet mean volumeon 10-09-2021 Platelet mean volume (Bld) [Entitic vol] 11.3 fL 6.2-12.0 [facility] Work Phone: Determination of erythrocyte mean corpuscular volume (MCV)on 10-09-2021 MCV (RBC) [Entitic vol] 90.4 fL 81-99 [facility] Work Phone: Hematocrit Auto (Bld) [Volum e fraction]on 10-09-2021 Hematocrit (Bld) [Volume fraction] 41.4 % 37-47 [facility] Work Phone: Iron measurement (mass/mass) on 10-09-2021 Iron (Unsp spec) [Mass/Mass] 43 ug/dL 50-170 [facility] Work Phone: [phone] Laboratory - Chemistry and C hemistry - challengeon 10-09-2021 ALP [Catalytic activity/Vol] 88 U/L 45-117 [facility] Work Phone: [phone] ALT [Catalytic activity/Vol] 30 U/L 13-56 [facility] Work Phone: [phone] CO2 [Moles/Vol] 25.0 mmol/L 21.0-32.0 [facility] Work Phone: [phone] Cobalamin (Vitamin B12) [Mass/Vol] 298 pg/mL 211-911 [facility] Work Phone: [phone] Globulin (S) [Mass/Vol] 4.0 g/dL 2.2-4.2 [facility] Work Phone: Urea nitrogen/Creatinine [Mass ratio] 22.8 mg/mg 10-20 [facility] Work Phone: Laboratory - Hematology and Cell countson 10-09-2021 Erythrocyte distribution width (RBC) [Entitic vol] 45.5 fL 35.1-43.9 [facility] Work Phone: [phone] Erythrocyte distribution width (RBC) [Ratio] 13.7 % 11.6-14.6 [facility] Work Phone: [phone] Immature granulocytes/100 WBC (Bld) 0.300 % 0.0-0.9 [facility] Work Phone: [phone] Comment on above: IG% - Immature Granu locytes (promyelocytes, myelocytes and metamyelocytes) > 1% indicates that a LEFT SHIFT is Present. MCH (RBC) [Entitic mass] 29.3 pg 27.0-32.0 [facility] Work Phone: Nucleated RBC/100 WBC (Bld) [Ratio] 0 % 0-5 [facility] Work Phone: MCHC Auto (RBC) [Mass/Vol]on 10-09-2021 MCHC (RBC) [Mass/Vol] 32.4 g/dL 32-36 [facility] Work Phone: No Panel Informationon 10-09 Estimated GFR (MDRD) Amer 106 mL/min >60 [facility] Work Phone: Comment on above: GFR Calc Estimated GFR (MDRD) Non-Af Amer 87 mL/min >60 [facility] Work Phone: Comment on above: Non- GFR Calc Total Iron Binding Capacity 337 ug/dL 250-450 [facility] Work Phone: Platelets bldon 10-09-2021 Platelets (Bld) [#/Vol] 317 10*3/uL 150-450 [facility] Work Phone: Serum or plasma albumin ralph urement (mass/volume)on 10-09-2021 Albumin [Mass/Vol] 3.7 g/dL 3.2-5.0 [facility] Work Phone: Serum or plasma albumin/glob ulin mass ratioon 10-09-2021 Albumin/Globulin [Mass ratio] 0.9 {ratio} 0.9-2.4 [facility] Work Phone: Serum or plasma calcium ralph urement (mass/volume)on 10-09-2021 Calcium [Mass/Vol] 9.3 mg/dL 8.5-10.1 [facility] Work Phone: Serum or plasma creatinine m easurement (mass/volume)on 10-09-2021 Creatinine [Mass/Vol] 0.70 mg/dL 0.55-1.02 [facility] Work Phone: Comment on above: The validity of the calculated GFR & GFRAA in patients over 70 years has not been determined. Clinical correlation is essential. Serum or plasma ferritin maryellen surement (mass/volume)on 10-09-2021 Ferritin [Mass/Vol] 50 ng/mL 8-252 [facility] Work Phone: Serum or plasma folate measu rement (mass/volume)on 10-09-2021 Folate [Mass/Vol] 8.20 ng/mL 3.1-55.4 [facility] Work Phone: Serum or plasma urea nitroge n measurement (mass/volume)on 10-09-2021 Urea nitrogen [Mass/Vol] 16 mg/dL 7-18 [facility] Work Phone: Thin prep Papanicolaou smear with manual screeningon 10-09-2021 Thin prep Papanicolaou smear with manual screening 24 U/L 15-37 [facility] Work Phone: Thin prep Papanicolaou smear with manual screening 7 5-15 [facility] Work Phone: CURon 03-24-2020 CUR . MICRO - Microbiology PROCEDURE: Urine Culture [*1] SOURCE: Urine BODY SITE: COLLECTED DATE/TIME: 03/23/2020 09:32 EST RECEIVED DATE/TIME: 03/23/2020 14:50 EST START DATE/TIME: 03/23/2020 14:50 EST FREE TEXT SOURCE: FINAL REPORTS Final Report [] Verified Date/Time/Personnel : 03/24/2020 13:28 EST >100,000 organisms per mL Multiple bacterial morphotypes present. Probable Contamination. Suggest recollection if clinically indicated. Performing Locations *1: This test was performed at: [facility], [address] [place] [address], [id number] , [facility] ([place]) Comment on above: Performed By: #### C UR #### [address] [address] .Auto Diffon 03-23-2020 Ammonia (P) [Mass/Vol] 1.00 10 3/mcL Normal 0.15-1.00 [facility] ([place]) Comment on above: Performed By: #### A ROMAINE, GFR, ADIFF, CBC #### [place] [address] #### CMP #### [address] [address] Basophils (Bld) [#/Vol] 0.00 10 3/mcL Normal 0.00-0.19 [facility] ([place]) Comment on above: Performed By: #### A ROMAINE, GFR, ADIFF, CBC #### [place] [address] #### CMP #### [address] [address] Basophils/100 WBC (Bld) 0.1 % Normal 0.0-2.5 [facility] ([place]) Comment on above: Performed By: #### A ROMAINE, GFR, ADIFF, CBC #### [place] [address] #### CMP #### [address] [address] Eosinophils (Bld) [#/Vol] 0.00 10 3/mcL Normal 0.00-0.40 [facility] ([place]) Comment on above: Performed By: #### A ROMAINE, GFR, ADIFF, CBC #### [place] [address] #### CMP #### [address] [address] Eosinophils/100 WBC (Bld) 0.0 % Normal 0.0-7.0 [facility] ([place] Comment on above: Performed By: #### A ROMAINE, GFR, ADIFF, CBC #### [place] [address] #### CMP #### [address] [address] Lymphocytes (Bld) [#/Vol] 0.50 10 3/mcL Low 0.77-3.85 [facility] ([place]) Comment on above: Performed By: #### A ROMAINE, GFR, ADIFF, CBC #### [address] [address] #### CMP #### [address] [address] Lymphocytes/100 WBC (Bld) 2.2 % Low 10.0-50.0 [facility] ([place]) Comment on above: Performed By: #### A ROMAINE, GFR, ADIFF, CBC #### [address] [address] #### CMP #### [address] [address] Monocytes/100 WBC (Bld) 4.5 % Normal 1.7-13.0 [facility] ([place]) Comment on above: Performed By: #### A ROMAINE, GFR, ADIFF, CBC #### [address] [address] #### CMP #### [address] [address] Neutrophils/100 WBC (Bld) 93.2 % High 37.0-80.0 [facility] ([place]) Comment on above: Performed By: #### A ROMAINE, GFR, ADIFF, CBC #### [address] [address] #### CMP #### [address] [address] .GFRon 03-23-2020 GFR 50 ml/min/1.73sqm Normal [facility] ([place]) Comment on above: Result Comment: GFR Population [...] #### A ROMAINE, GFR, ADIFF, CBC #### [address] [address] #### CMP #### [place] [address] GFR Non- 41 ml/min/1.73sqm Normal [facility] ([place]) Comment on above: Result Comment: GFR Population [...] #### A ROMAINE, GFR, ADIFF, CBC #### [address] [address] #### CMP #### [place] [address] .NEUABSon 03-23-2020 Neutrophils (Bld) [#/Vol] 20.30 10 3/mcL High 2.85-6.16 [facility] ([place]) Comment on above: Performed By: #### A ROMAINE, GFR, ADIFF, CBC #### [place] [address] #### CMP #### [place] [address] .Urinalysis Microscopic (AO) on 03-23-2020 RBC (U) [#/Vol] 5-10 Abnormal None Seen [facility] ([place]) Comment on above: Performed By: #### U AMICAO, UA #### [place] [address] [address] UA Bacteria 2+ /hpf Abnormal [facility] ([place]) Comment on above: Performed By: #### U AMISLY, UA #### [place] [address] [address] UA Squam Epithelial 0-5 Abnormal None Seen On license of [facility] ([place]) Comment on above: Performed By: #### U RONNIE, UA #### [place] [address] [address] UA WBC 15-25 Abnormal None Seen [facility] ([place]) Comment on above: Performed By: #### Chetna TRUJILLO UA #### [place] [id number] CBCon 03-23-2020 Erythrocyte distribution width (RBC) [Ratio] 13.8 % Normal 11.5-14.5 [facility] ([place]) Comment on above: Performed By: #### A ROMAINE, GFR, ADIFF, CBC #### [place] [address] #### CMP #### [place] [address] Hematocrit (Bld) [Volume fraction] 36.0 % Low 37.0-47.0 [facility] ([place]) Comment on above: Performed By: #### A ROMAINE, GFR, ADIFF, CBC #### [place] [address] #### CMP #### [place] [address] Hemoglobin (Bld) [Mass/Vol] 12.2 G/dL Normal 12.0-16.0 [facility] ([place]) Comment on above: Performed By: #### A ROMAINE, GFR, ADIFF, CBC #### [place] [address] #### CMP #### [place] [address] MCH (RBC) [Entitic mass] 30.0 pg Normal 27.0-31.2 [facility] ([place]) Comment on above: Performed By: #### A ROMAINE, GFR, ADIFF, CBC #### [place] [address] #### CMP #### [address] [address] MCHC (RBC) [Mass/Vol] 33.9 G/dL Normal 33.0-37.0 [facility] ([place]) Comment on above: Performed By: #### A ROMAINE, GFR, ADIFF, CBC #### [place] [address] #### CMP #### [address] [address] MCV (RBC) [Entitic vol] 88.6 fL Normal 80.0-94.0 [facility] ([place]) Comment on above: Performed By: #### A ROMAINE, GFR, ADIFF, CBC #### [place] [address] #### CMP #### [address] [address] Platelet mean volume (Bld) [Entitic vol] 8.2 fL Normal 7.4-10.4 [facility] ([place]) Comment on above: Performed By: #### A ROMAINE, GFR, ADIFF, CBC #### [place] [address] #### CMP #### [address] [address] Platelets (Bld) [#/Vol] 225 10 3/mcL Normal 130-400 [facility] ([place]) Comment on above: Performed By: #### A ROMAINE, GFR, ADIFF, CBC #### [place] [address] #### CMP #### [address] [address] RBC (Bld) [#/Vol] 4.06 10 6/mcL Low 4.20-5.40 [facility] ([place]) Comment on above: Performed By: #### A ROMAINE, GFR, ADIFF, CBC #### [address] [address] #### CMP #### [address] [address] WBC (Bld) [#/Vol] 21.80 10 3/mcL Critically abnormal 4.60-10.80 [facility] ([place]) Comment on above: Performed By: #### A ROMAINE, GFR, ADIFF, CBC #### [place] [address] #### CMP #### [address] [address] CMPon 03-23-2020 Albumin [Mass/Vol] 3.4 G/dL Normal 3.4-4.8 [facility] ([place]) Comment on above: Performed By: #### A ROMAINE, GFR, ADIFF, CBC #### [place] [address] #### CMP #### [address] [address] Albumin/Globulin [Mass ratio] 1.1 {ratio} Normal 1.1-2.5 [facility] ([place]) Comment on above: Performed By: #### A ROMAINE, GFR, ADIFF, CBC #### [address] [address] #### CMP #### [address] [address] ALP [Catalytic activity/Vol] 76 U/L Normal 40-135 [facility] ([place]) Comment on above: Performed By: #### A ROMAINE, GFR, ADIFF, CBC #### [address] [address] #### CMP #### [address] [address] ALT [Catalytic activity/Vol] 25 U/L Normal 14-59 [facility] ([place]) Comment on above: Performed By: #### A ROMAINE, GFR, ADIFF, CBC #### [place] [address] #### CMP #### [address] [address] AST [Catalytic activity/Vol] 15 U/L Normal 10-40 [facility] ([place]) Comment on above: Performed By: #### A ROMAINE, GFR, ADIFF, CBC #### [address] [address] #### CMP #### [address] [address] Bili Total 0.7 mg/dL Normal 0.2-1.0 [facility] ([place]) Comment on above: Result Comment: Use of this assay is not recommended for patients undergoing treatment with eltrombopag due to the potential for falsely elevated results. Performed By: #### A ROMAINE, GFR, ADIFF, CBC #### [address] [address] #### CMP #### [address] [address] Calcium [Mass/Vol] 8.6 mg/dL Normal 8.4-10.2 [facility] ([place]) Comment on above: Performed By: #### A ROMAINE, GFR, ADIFF, CBC #### [address] [address] #### CMP #### [address] [address] Chloride [Moles/Vol] 106 mmol/L Normal 98-107 [facility] ([place]) Comment on above: Performed By: #### A ROMAINE, GFR, ADIFF, CBC #### [address] [address] #### CMP #### [address] [address] CO2 [Moles/Vol] 25 mmol/L Normal 23-31 [facility] ([place]) Comment on above: Performed By: #### A ROMAINE, GFR, ADIFF, CBC #### [address] [address] #### CMP #### [address] [address] Creatinine [Mass/Vol] 1.28 mg/dL High 0.55-1.02 [facility] ([place]) Comment on above: Performed By: #### A ROMAINE, GFR, ADIFF, CBC #### [address] [address] #### CMP #### [address] [address] Electrolyte Balance 11.0 mEq/L Normal On license of [facility] ([place]) Comment on above: Performed By: #### A ROMAINE, GFR, ADIFF, CBC #### [address] [address] #### CMP #### [address] [address] Globulin (S) [Mass/Vol] 3.2 G/dL Normal [facility] ([place]) Comment on above: Performed By: #### A ROMAINE, GFR, ADIFF, CBC #### [place] [address] #### CMP #### [address] [address] Glucose [Mass/Vol] 156 mg/dL High 83-110 [facility] ([place]) Comment on above: Performed By: #### A ROMAINE, GFR, ADIFF, CBC #### [address] [address] #### CMP #### [address] [address] Potassium [Moles/Vol] 3.6 mmol/L Normal 3.5-5.1 [facility] ([place]) Comment on above: Performed By: #### A ROMAINE, GFR, ADIFF, CBC #### [place] [address] #### CMP #### [address] [address] Protein [Mass/Vol] 6.6 G/dL Normal 6.4-8.2 [facility] ([place]) Comment on above: Performed By: #### A ROMAINE, GFR, ADIFF, CBC #### [address] [address] #### CMP #### [address] [address] Sodium [Moles/Vol] 142 mmol/L Normal 136-145 [facility] ([place]) Comment on above: Performed By: #### A ROMAINE, GFR, ADIFF, CBC #### [address] [address] #### CMP #### [address] [address] Urea nitrogen [Mass/Vol] 24 mg/dL High 7- [facility] ([place]) Comment on above: Performed By: #### A ROMAINE, GFR, ADIFF, CBC #### [address] [address] #### CMP #### [address] [address] Urea nitrogen/Creatinine [Mass ratio] 19 ratio Normal 11-15 [facility] ([place]) Comment on above: Performed By: #### A ROMAINE, GFR, ADIFF, CBC #### [address] [address] #### CMP #### [address] [address] UAon 03-23-2020 Color (U) Yellow Normal [facility] ([place]) Comment on above: Performed By: #### U AMICAO, UA #### [address] [address] Glucose (U) [Mass/Vol] Negative Normal Negative [facility] ([place]) Comment on above: Performed By: #### U AMICAO, UA #### [address] [address] Ketones Ql (U) 15 mg/dL Abnormal Negative [facility] ([place]) Comment on above: Performed By: #### U AMICAO, UA #### [address] [address] UA Appear Slightly Cloudy Abnormal Clear [facility] ([place]) Comment on above: Performed By: #### U AMICAO, UA #### [address] [address] UA Blood Moderate Abnormal Negative [facility] ([place]) Comment on above: Performed By: #### U AMICAO, UA #### [place] [address] [address] UA Leuk Est Large Abnormal Negative [facility] ([place]) Comment on above: Performed By: #### U AMICAO, UA #### [place] [address] [address] UA Nitrite Positive Abnormal Negative [facility] ([place]) Comment on above: Performed By: #### U AMICAO, UA #### [place] [address] [address] UA pH 7.0 Normal 5.0 - 8.0 [facility] ([place]) Comment on above: Performed By: #### U AMICAO, UA #### [place] [address] [address] UA Protein Negative Normal Negative [facility] ([place]) Comment on above: Performed By: #### U AMICAO, UA #### [address] [address] UA Spec Grav 1.020 Normal 1.015-1.025 [facility] ([place]) Comment on above: Performed By: #### U AMICAO, UA #### [place] [address] [address] UA Specimen Type Void Normal [facility] ([place]) Comment on above: Performed By: #### U AMICAO, UA #### [address] [address] UA Urobilinogen 0.2 E.U./dL Normal 0.2-1.0 [facility] ([place]) Comment on above: Performed By: #### U AMICAO, UA #### [address] [address] Urobilinogen Qn (U) Negative Normal Negative On license of [facility] ([place]) Comment on above: Performed By: #### U ERICBlanca, UA #### [place] [address] [address] Vital Signs Date Time Vital Sign Value Performing Clinician Marco chapman 11-26-2024 15:35-0400 Body temperature 97.3 [degF] Dr. Clyde Linda MD Work Phone: [facility] 11-26-2024 15:35-0400 Diastolic blood pressure 76 mm[Hg] Dr. Clyde Linda MD Work Phone: [facility] 11-26-2024 15:35-0400 Heart rate 55 /min Dr. Clyde Linda MD Work Phone: [phone] [place] [address] 11-26-2024 15:35-0400 Respiratory rate 16 /min Dr. Clyde Linda MD Work Phone: [facility] 11-26-2024 15:35-0400 SaO2% (BldA) [Mass fraction] 98 % Dr. Clyde Linda MD Work Phone: [facility] 11-26-2024 15:35-0400 Systolic blood pressure 150 mm[Hg] Dr. Clyde Linda MD Work Phone: [facility] 11-26-2024 11:16-0400 Body height 152.[address] Clyde Linda MD Work Phone: [facility] 11-26-2024 11:16-0400 Body mass index (BMI) [Ratio] 25.8 kg/m2 Dr. Clyde Linda MD Work Phone: [facility] 11-26-2024 11:16-0400 Body weight [address] Clyde Linda MD Work Phone: [facility] 11-20-2024 16:22-0400 Body height 152.[address] Clyde Linda MD Work Phone: [facility] 11-20-2024 16:22-0400 Body mass index (BMI) [Ratio] 27.3 kg/m2 Dr. Clyde Linda MD Work Phone: [facility] 11-20-2024 16:22-0400 Body weight 63.[address] Clyde Linda MD Work Phone: [facility] 11-20-2024 16:22-0400 Diastolic blood pressure 90 mm[Hg] Dr. Clyde Linda MD Work Phone: [facility] 11-20-2024 16:22-0400 Heart rate 62 /min Dr. Clyde Linda MD Work Phone: [facility] 11-20-2024 16:22-0400 Systolic blood pressure 138 mm[Hg] Dr. Clyde Linda MD Work Phone: [facility] Encounters Encounter Date Encounter Type Care Provider Facility Start: 12-03-2024 ambulatory Yanira Barahona Facility: [facility] Start: 11-26-2024 ambulatory Yanira Barahona [place] [facility] Start: 11-26-2024 Non-patient / Non-visit [facility] Start: 11-26-2024 End: 11-26-2024 Admission to same day surgery center Dr. Yanira [facility] Start: 11-26-2024 End: 11-26-[address] Clyde Linda MD Work Phone: [facility] Start: 11-20-2024 End: 11-20-[address] Yanira Barahona MD -[facility] Work Phone: Start: 11-20-2024 End: 11-20-[address] Clyde Linda MD Work Phone: -[facility] Start: 11-17-2024 End: 11-17-2024 ambulatory Kyaw Perry Facility:[facility] Start: 10-28-2024 End: 10-28-[address] Clyde Linda MD Work Phone: -[facility] Start: 10-28-2024 End: 10-28-[address] Clyde Linda MD -Laboratory [facility] Start: 10-28-2024 End: 10-28-2024 ambulatory Clyde Linda Facility:[facility] Start: 10-20-2024 Non-patient / Non-visit Dr. Yanira shaw MD -[facility] Work Phone: Start: 09-30-2024 End: 09-30-[address] Clyde Linda MD Work Phone: [facility] Work Phone: Start: 09-30-2024 End: 09-30-[address] Yanira Barahona MD -[facility] [place] Work Phone: Start: 09-30-2024 End: 09-30-2024 ambulatory Yanira Barahona Facility:[facility] Start: 09-18-2024 End: 09-18-[address] Clyde Linda MD Work Phone: [facility] Work Phone: Start: 09-18-2024 End: 09-18-[address] Yanira Barahona MD -Cat Scan [facility] Work Phone: Start: 09-18-2024 End: 09-18-2024 ambulatory Yanira Barahona Facility:[facility] Start: 09-01-2024 End: 09-01-[address] Clyde Lidna MD Work Phone: [facility] Work Phone: Start: 09-01-2024 End: 09-01-[address] Yanira Barahona MD -Ultrasound [facility] Work Phone: Start: 09-01-2024 End: 09-01-2024 ambulatory Yanira Barahona Facility:[facility] Start: 07-29-2024 End: 07-29-[address] Clyde Linda MD Work Phone: [facility] Work Phone: Start: 07-29-2024 End: 07-29-[address] [facility] Start: 07-29-2024 End: 07-29-2024 ambulatory Clyde Linda Facility:[facility] Start: 02-12-2024 End: 02-12-2024 ambulatory Clyde Linda Facility:[facility] Start: 01-14-2024 End: 01-14-2024 ambulatory Clyde Linda Facility:[facility] Start: 07-09-2023 End: 07-09-2023 ambulatory [facility] Work Phone: Start: 07-09-2023 End: 07-09-2023 Patient encounter procedure [facility] Start: 02-04-2023 End: 02-04-2023 ambulatory [facility] Work Phone: Start: 02-04-2023 End: 02-04-2023 Patient encounter procedure [facility]-Outpatient [facility] Imaging Work Phone: Start: 07-03-2022 End: 07-03-2022 ambulatory [facility] Work Phone: Start: 07-03-2022 End: 07-03-2022 Patient encounter procedure [facility] Start: 02-21-2022 End: 02-21-2022 ambulatory [facility] Work Phone: Start: 02-21-2022 End: 02-21-2022 Patient encounter procedure [facility] Start: 02-01-2022 End: 02-01-2022 ambulatory [facility] Work Phone: Start: 02-01-2022 End: 02-01-2022 Patient encounter procedure [facility]-Outpatient Bone Densitometry Start: 12-12-2021 End: 12-12-2021 ambulatory [facility] Work Phone: Start: 12-12-2021 End: 12-12-2021 Patient encounter procedure [facility] Start: 10-09-2021 End: 10-09-2021 Patient encounter procedure [facility] Procedures Date Procedure Procedure Detail Performing Clinician Start: 11-26-2024 Extrac[address] wave lith[address] Clyde Lidna MD Work Phone: Start: 10-28-2024 Vitamin D, 25-hydrox y measurement Dr. Clyde Linda MD Work Phone: Comment on above: Vitamin D StatusDefi ciency: <20 ng/mL (50nmol/L)Insufficiency: 20-30 ng/mL (50-75 nmol/L)Sufficiency: 30-100 ng/mL (75-250 nmol/L)Toxicity: >100 ng/mL (>250 nmol/L) Start: 09-30-2024 Plain X-ray abdomen Dr. Clyde Linda MD Work Phone: Start: 09-18-2024 CT of abdomen and pe lvis without contrast Dr. Clyde Linda MD Work Phone: Start: 09-01-2024 Complete ultrasound of kidneys and bladder Dr. Clyde Linda MD Work Phone: Start: 07-30-[address] Clyde Linda MD Work Phone: Start: 07-29-2024 Urnls dip stick/tabl et reagent auto microscopy Dr. Clyde Linda MD Work Phone: Start: 07-29-2024 Vitamin D, 25-hydrox y measurement Dr. Clyde Linda MD Work Phone: Comment on above: Vitamin D StatusDefi ciency: <20 ng/mL (50nmol/L)Insufficiency: 20-30 ng/mL (50-75 nmol/L)Sufficiency: 30-100 ng/mL (75-250 nmol/L)Toxicity: >100 ng/mL (>250 nmol/L) Start: 02-04-2023 Screening mammography Start: 02-01-2022 Dual energy X-ray absorptiometry Start: 02-01-2022 Screening mammography H/O: hysterectomy H/O: hysterectomy Dr. Zander Linda MD Work Phone: H/O: surgery Hx of bladder re pair surgery History of tonsillectomy Hx of tonsillect rosa Plan of Treatment Date Care Activity Detail Author Start: 11-26-2024 Patient discharge [place] [facility] Payers Date Payer Category Payer Medicaid [id number] 2024 Private Health Insurance 101 [id number] 2024 Self-pay [id number] Medicare [id number] Unknown [id number] Unknown [id number] 2.16.8 [id number] Unknown [id number] 2.16.8 [id number] Unknown [id number] 2.16.8 [id number] Unknown [id number] 2.16.8 [id number] Unknown [id number] 2.16.8 [id number] Unknown [id number] 2.16.8 [id number] Unknown [id number] 2.16.8 [id number] Unknown [id number] 2.16.8 [id number] Unknown [id number] 2.16.8 [id number] Unknown [id number] 2.16.8 [id number] Unknown [id number] 2.16.8 [id number] Unknown [id number] 2.16.8 [id number] Social History Date Type Detail Facility Start: 07-14-2020 End: 07-14-2020 Tobacco smoking status NHIS Unknown if ever smoked [facility] Start: 05-01-2020 None [facility] Start: 05-06-2020 With Family [facility] Start: 07-14-2020 Non-smoker [facility] Start: 1950 Sex Assigned At Female [facility] Start: 10-01-2023 End: 11-16-2024 Tobacco smoking status NHIS Ex-smoker (finding) [facility] Start: 08-03-2024 Sex Female (finding) [facility] Medical Equipment Procedure Code Equipment Code Equipment Origin al Text Equipment Identifier Dates Colonoscopy Ligation clip, metallic ([id number] FDA Start: 10-07-2023 Goals Date Patient Goal Desired Activity /State Mental Status Date Assessment Result Facility 11-26-2024 Cognitive function Voice/Name;Touch/Gigi pires [facility] Work Phone: Clinical Notes 09-03-2024 to 12-03-2024 Note Date & Type Note Facility 12-03-2024 Note [facility] Medical Records Department [address] [place] [address] History Physical Exam 12/03/24 0906 MR#: [id number] Acct: [id number] Name: SUELLEN LONG Rep #: [id number] : 1950 74 From: Yanira Barahona MD PCP: Dr. 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 [facility] [place] [facility] History and Physical Date of Admission: 11/26/24 Intake Vital Signs 10/07/2407:00 11/21/2515:22 Height 5 ft 5 ft Weight: 140 lb BMI 27.3 BP 138/90 H Pulse 62 Intake Visit Reasons: PRE OP URINE/SIGNED CONSENT Chief Complaint: preoperative visit with urine and consent Repacker Required: No Accompanied by: Self Is patient in pain?: No Allergies No Known Allergies Allergy (Verified 11/20/24 16:21) Medications ???Medication ???Instructions ???Recorded ???Confirmed ???Type omeprazole 20 mg delayed 20 mg PO DAILY ##90 07/19/20 11/20/24 Rx release,disintegrating tablet alendronate 70 mg tablet (Fosamax) 70 mg PO QWEEK 08/12/23 11/20/24 History calcium carbonate (Calcium 600) 600 mg PO DAILY 08/12/23 11/20/24 History cholecalciferol (vitamin D3) 125 125 mcg PO DAILY 08/12/23 11/20/24 History mcg (5,000 unit) capsule amlodipine 5 mg tablet 5 mg PO QHS 11/12/24 11/20/24 History dnqjxfxx-irsl-mvyy 8 mg-folic 400 1 tab PO DAILY 11/12/24 11/20/24 History mcg-K 50 mcg-lutein 300 mcg tablet (Centrum Silver Women) rosuvastatin 10 mg tablet 10 mg PO QHS 11/12/24 11/20/24 History estradiol 0.01% (0.1 mg/gram) 1 g vaginal 3XW 3 months #42.5 11/20/24 11/20/24 R x vaginal cream grams levofloxacin 500 mg tablet 500 mg PO QDAY #7 tabs 11/23/24 Rx Have you fallen in the past year?: No PFSH Medical History (Updated 11/25/24 @ 17:[address] Yanira Barahona MD) Cystocele, midline Vaginal atrophy Urinary frequency Osteoporosis Degenerative disc disease Coagulation disorder Presence of pessary Loss of hearing Post-menopausal Bladder disease Arthritis High cholesterol Back pain History of hiatal hernia Gastric reflux History of edema History of echocardiogram Wears glasses History of GI bleed Former smoker Anemia Fracture of talus of right ankle, closed 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, bilateral lower limbs Surgical History H/O: hysterectomy History of ankle surgery H/O adenoidectomy Hx of colonoscopy History of cataract extraction with lens replacement Hx of tonsillectomy History of ectopic Hx of lithotripsy Hx of bladder repair surgery Family History Father HypertensionMother CVA (cerebral vascular accident)Other Cancer Social History Smoking Status: Former smoker second hand exposure: No alcohol intake: never substance use type: does not use caffeine: Yes what type of physical activity do you participate in: none frequency: does not exercise do you feel safe at home: Yes HPI HPI Urology Chief Complaint: preoperative visit with urine and consent Details: SUELLEN LONG, is a 74 F. The patient is here for preoperative history and physical prior to cystoscopy with left ureteral stent insertion and left renal scheduled extracorporeal shockwave lithotripsy. There are no new symptoms since the last visit. The procedure, recovery and expectations were explained. The risks, benefits and alternatives were discussed, including but not limited to, the risks of anesthesia, bleeding, infection, injury, pain and the need for further intervention. We have discussed the risk of exposure to and/or potential harm posed by the COVID-19 virus with having a surgery/procedure at this time. A joint decision was made at this time to proceed with the scheduled surgery/procedure as indicated on the consent form. ROS Const Constitutional: No chills, fatigue, fever(s), headache(s), night sweats, weakness, weight change, abnormal sleep pattern or change in appetite Eyes Eyes: No change in vision ENT ENT: No headache(s) or dry mouth Resp Respiratory: No cough, chest congestion, shortness of breath or wheezing Cardio Cardiology: Positive for other (No chest pain.); No shortness of breath, irregular heart rhythm or lightheadedness Gastro GI: Positive for other (No nausea.); No abdominal pain, change in bowel habits, constipation, diarrhea or vomiting Musc Musculoskeletal: No abnormal gait Skin Skin: No yellowing of the eye, lesions, itchy eyes, rash or skin ulcer Neuro Neurology: No abnormal gait, confusion, dizziness, weakness, headache(s) or memory loss Psych Psychiatric: No abnormal sleep pattern, No change in appetite, No confusion and No memory loss Endo Endocrine: No fatigue, increased thirst/drinking or weight del real (more content not included)... [facility] 11-26-2024 Consult note [facility] 11-26-2024 Discharge summary Note Date/Time November 26, 2024 12:51pm [facility] Medical Records Department [address] [place] [address] Instructions for Home/Discharge Instructions 11/26/24 1249 MR#: [id number] Acct: [id number] Name: SUELLEN LONG Rep #:[id number] : 1950 74 From: Yanira Dominguez PCP: Dr. 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:RE [place] [facility] Discharge Instructions Diet Discharge Diet: No restrictions Activity Discharge Activity: Return to Normal Activity Dressing / Incision Call your doctor if you observe: Fever of 101 or Higher, Inability to urinate and Inability to have a bowel movement Follow Up Care Please Follow Up With: Yanira Barahona MD When: The office will call to make follow-up arrangements Test Results: Test results from this visit will be discussed in further detail at your follow-up appointment, if applicable. Discharge Plan Admission Attending Provider: Yanira Barahona Primary Care Provider: Clyde Linda Instructions Print Language: Comoran Discharge Orders/Prescriptions Prescriptions: New phenazopyridine 200 mg tablet 200 mg PO TID PRN (Reason: pain) Qty: 30 3RF oxycodone-acetaminophen 5-325 mg tablet 1 tab PO Q8H PRN (Reason: pain) 3 Days Qty: 10 0RF ondansetron 4 mg tablet,disintegrating 4 mg PO Q8H PRN (Reason: nausea and vomiting) Qty: 10 0RF Continued alendronate [Fosamax] 70 mg tablet 70 mg PO QWEEK cholecalciferol (vitamin D3) 125 mcg (5,000 unit) capsule 125 mcg PO DAILY calcium carbonate [Calcium 600] 600 mg calcium (1,500 mg) tablet 600 mg PO DAILY estradiol 0.01 % (0.1 mg/gram) cream 1 g vaginal 3XW 90 Days Qty: 42.5 3RF omeprazole 20 MG tablet,disintegrat, delay rel 20 mg PO DAILY Qty: 90 3RF Centrum Silver Women 8 mg iron-400 mcg-50 mcg tablet 1 tab PO DAILY amlodipine 5 mg tablet 5 mg PO QHS rosuvastatin 10 mg tablet 10 mg PO QHS levofloxacin 500 mg tablet 500 mg PO QDAY Qty: 7 0RF Referrals / Follow Up: Clyde Linda MD [Primary Care Provider] - Disposition Disposition (needs filled in before D/C Order can be placed): Home, Self Care 11/26/24 1251<Electronically signed by Yanira Barahona MD>Yanira Barahona MD CC: Dr. Clyde Linda MD ~ Signed [facility] Work Phone: 1(203) 284-954608-07-2025 Consult note [facility] Medical Records Department [address] [place] [address] Anesthesia Postop Eval I 11/26/24 1419 MR#: [id number] Acct: [id number] Name: SUELLEN LONG Rep #:[id number] : 1950 74 From: Indra Carpenter RNA PCP: Dr. 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: [place] [facility] [place] Race: C Location: [place] [address] Anesthesia: Postop Eval I Current Vital Signs Temperature: 98 F Pulse Rate: 55 Blood Pressure: 140/82 Respiratory Rate: 16 Pulse Ox: 98 Oxygen Delivery Method: Room Air Assessment Airway patent: Yes Spontaneous unlabored respirations: Yes Mental status: Awake and Calm nausea: No Vomiting: No Anesthesia Complication: No Fluid Hydration Crystalloid volume administer (ml): 800 Total IV fluid infused: 800 Progress Note Anesthesia document: Postop Eval 1 completed: Yes 11/26/24 1420 ORDER DEPARTMENT SUPERVISOR> Date _ Indra Garcia CRNA Cosigner Signature: Date CC: ~ Signed [facility]08-07-2025 Procedure note [facility] Medical Records Department [address] [place] [address] Operative Report 11/26/24 1251 MR#: [id number] Acct: [id number] Name: SUELLEN LONG Rep #:[id number] : 1950 74 From: Yanira Dominguez PCP: Dr. 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:[facility] Location: [place] [address] Operative Report (Standard) Operative Information Date of Procedure: 11/26/24 Pre-Operative Diagnosis: Left renal and ureteropelvic junction stones and hydronephrosis Post-Operative Diagnosis: Same Surgery/Procedure Performed: Cystoscopy with left ureteral stent insertion, leftrenal extracorporalshockwave lithotripsy rug cleaner hand: No Type of Anesthesia: General RN Documented Start/Stop Times: Operation Date: 11/26/24 12:05 Case Time Into Pre-Op 11/26/24 10:40 Out of Pre-Op 11/26/24 12:45 Anesthesia Start 11/26/24 12:55 Into Room 11/26/24 12:55 Procedure Start 11/26/24 13:07 Procedure End 11/26/24 14:11 Procedure Start Time: 13:07 Procedure Stop Time: 14:11 Select all DRAINS/GRAFTS/IMPLANTS that apply: Drains Drain details: 6 Salvadorean by 22 cm JJ stent Estimated Blood Loss: <5cc Specimen collected: No Description of surgery: The patient is a 74-year-old female with large left renal and ureteropelvic junction stones who presents for definitive management. Informed consent was obtained. The patient was taken to the operating room and placed on the operating room table. Anesthesia monitored the head, neck, airway, IV access and vital signs throughout the case. Once anesthesia was appropriately administered, she was placed into dorsal lithotomy position and was prepped and draped in usual sterile fashion. The cystoscope was inserted through the urethra under direct visualization into the urinary bladder. The bladder mucosarevealed no evidence of mass, erythema, ulceration or foreign body. The left ureteral orifice was intubated with a 0.035 Glidewire which passed into the renal pelvis as seen on fluoroscopy. A 6 Salvadorean 22 cm JJ stent was placed over the Glidewire and was positioned into the renal pelvis with good curling in the urinary bladder. At this time the bladder was emptied and the cystoscope was removed. The patient was repositioned on the table. The distal aspect of the UPJ stone was shocked with 3000 shocks. It appeared to be fragmented at the conclusion of the case. The patient was then awakened and taken to the recoveryroom in good condition. There were no complications during the procedure. Surgical Findings: Large left stone burden Complications Complications: No Admit VTE Documentation VTE Present on Admission: Yes VTE Mechan Device Prophylaxis: SCD's VTE Pharm Prophylaxis ordered?: No Reason prophylaxis not ordered: Treatment Not Indicated 11/26/24 1414 Cosigner Signature (if applicable): CC: Dr. Yanira Barahona MD; Dr. Clyde Linda MD~ Signed [facility]08-07-2025 Consult note Author Pankaj James [facility] Note Date/Time November 26, 2024 11: 18am [facility] Medical Records Department [address] [place] [address] Pre-Anesthesia Evaluation 11/26/24 1116 MR#: [id number] Acct: [id number] Name: SUELLEN LONG Rep #:[id number] : 1950 74 From: Pankaj James MD PCP: Dr. 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:[facility] Y Race: C Location: [place] [address] ASA Classification* ASA Classification ASA Classification: 3 Assessment & Plan Anesthesia* Anesthesia Assessment Anesthesia Assessment: Discussed sedation and/or anesthesia options, risks, benefits, and alternatives with patient/parents/legal guardian/POA. Questions invited. The patient/parents/legal guardian/POA seems to understand and agrees to proceedwith anesthesia plan. Reviewed the physical assessment, medical history, allergy history and patient home medications list prior to surgery/procedure/anesthetic and documented any changes. Performed airway and anesthesia risk assessments. Anesthesia Type Anesthesia Type: General (hiatal hernia, rapid sequence induction) Anesthesia Focused Assessment* Airway Assessment Mouth opens: >3 cm Mallampati Score: III Labs Anesthesia Preop lab: CBC WBC 6.8 K/mm3 (4.4-11.0) 10/28/24 14:10 10/28/24 RBC 4.44 M/mm3 (4.2-5.4) 10/28/24 14:10 10/28/24 Hgb 12.9 g/dL (12.0-15.0) 10/28/24 14:10 10/28/24 Hct 39.7 % (37-47) 10/28/24 14:10 10/28/24 Plt Count 278 K/mm3 (150-450) 10/28/24 14:10 10/28/24 CHEMISTRY Potassium 3.9 mmol/L (3.3-5.1) 10/28/24 14:10 10/28/24 Sodium 143 mmol/L (133-145) 10/28/24 14:10 10/28/24 Magnesium 2.2 mg/dL (1.5-2.2) 10/28/24 14:10 10/28/24 BUN 11 mg/dL (4-19) 10/28/24 14:10 10/28/24 Creatinine 0.73 mg/dL (0.70-1.20) 10/28/24 14:10 10/28/24 Glucose 95 mg/dL (70-99) 10/28/24 14:10 10/28/24 TSH 1.030 uIU/mL (0.358-3.740) 01/14/24 14:41 12/22 08/13 COAG PT 13.8 SECONDS (11.7-14.9) 05/01/20 00:26 Pre-Assessment Diagnosis/Proposed Procedure Planned Operative Procedure(s): CYSTO LEFT RENAL ESWL LEFT STENT INSERTION Anesthesia History Anesthesia History - hat band attacher: Anesthesia History - hat band attacher Hx Hospitalization No 11/12/24 10:47 Any Problems With Anesthesia No 11/12/24 10:47 Cholinesterase deficiency No 11/12/24 10:47 You/Your Family Experience No 11/12/24 10:47 fever (hyperthermia) with Relationship Recent Exposure to Contagious No 10/07/23 08:00 Disease Does patient have nerve No 11/12/24 10:47 stimulator Patient instructed to have device shut off --Does patient have Pacemaker or ICD? When Was Last Pacemaker Check QUESTION #4 FULL TEXT: You/Your Family Experience fever (hyperthermia) with Anesthesia Last Oral Intake Last Oral intake: Last Oral Intake NPO since Meds taken in AM with sips of water? Meds patient instructed to take am of surgery PONV PONV - hat band attacher: PONV - hat band attacher Female Yes 11/12/24 10:47 HX of Motion Sickness No 11/12/24 10:47 HX of N/V After Surgery No 11/12/24 10:47 Non-Smoker Yes 11/12/24 10:47 Duration of Surgery greater Yes 11/12/24 10:47 than 60 minutes Number of Risk Factors 3 11/12/24 10:47 PONV Score Moderate Risk 11/12/24 10:47 Height & Weight Height & Weight: Anesthesia: Height & Weight Height 5 ft 11/20/24 16:22 Respiratory Assessment Respiratory Assessment - hat band attacher: Respiratory Tract Infection Hx - hat band attacher Hx Respiratory Tract Infection No 11/12/24 10:47 STOP Sleep Apnea STOP Sleep Apnea - hat band attacher: STOP Sleep Apnea - hat band attacher Hx Hypertension Yes: CONTROLLED WITH MED 11/12/24 10:47 Hx Sleep Apnea No 11/12/24 10:47 CPAP No 10/07/23 09:25 BIPAP Do you snore loudly (louder No 11/12/24 10:47 than talking or can be heard Do you often feel tired/ No 11/12/24 10:47 fatigued/ sleepy during daytime? Has anyone observed you stop No 11/12/24 10:47 breathing during sleep? STOP Results Negative 11/12/24 10:47 QUESTION #5 FULL TEXT : Do you snore loudly (louder than talking or can be heard through closed doors)? 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 Specify any problems Hx of Preganancy in last 3 No 11/12/24 10:47 Months Nurse Filling Out Transfusion DSCHRIBER 11/12/24 10:47 & Questions: Date: 11/12/24 11/12/24 10:47 Time: 10:49 11/12/24 10:47 Patient unable to answer at this time (ie. confused, unrespo /Reproduction History /Reproductive History - hat band attacher: /Reproductive Hx- hat band attacher Hx Now No 11/12/24 10:47 Gestational Age (in weeks): EDC: Hx Hx Para Hx Section SAB No 11/12/24 10:47 Active Medications Active Medications: Current Medications Generic Name Dose Route Start Last Admin Trade Name Freq PRN Reason Stop Dose Admin Cefazolin Sodium 2 gm/ Sodium 110 mls @ 200 mls/hr 11/26/24 12:05 Chloride IV 11/26/24 12:37 INTRAOP ONE Lactated Ringer's 1,000 mls @ 15 mls/hr 11/26/24 10:45 IV .Q48H HUSAM PFSH Medical History Cystocele, midline Vaginal atrophy Urinary frequency Osteoporosis Degenerative disc disease Coagulation disorder Presence of pessary Loss of hearing Post-menopausal Bladder disease Arthritis High cholesterol Back pain History of hiatal hernia Gastric reflux History of edema History of echocardiogram Wears glasses History of GI bleed Former smoker Anemia Fracture of talus of right ankle, closed 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, bilateral lower limbs Home Medications ?Medication ?Instructions ?Recorded ?Last Taken ?Type omeprazole 20 mg delayed 20 mg PO DAILY ##90 07/19/20 11/26/24 07:30 Rx release,disintegrating tablet alendronate 70 mg tablet (Fosamax) 70 mg PO QWEEK 07/22 06/15 Unknown History calcium carbonate (Calcium 600) 600 mg PO DAILY Unknown History cholecalciferol (vitamin D3) 125 125 mcg PO DAILY 07/22 06/15 Unknown History mcg (5,000 unit) capsule amlodipine 5 mg tablet 5 mg PO QHS 11/12/24 Unknown History tuefqvzv-fwgr-aluw 8 mg-folic 400 1 tab PO DAILY 11/12 Unknown History mcg-K 50 mcg-lutein 300 mcg tablet (Centrum Silver Women) rosuvastatin 10 mg tablet 10 mg PO QHS 11/12/24 Unknow n History estradiol 0.01% (0.1 mg/gram) 1 g vaginal 3XW 3 months #42.5 11/20/24 Unknown Rx vaginal cream grams levofloxacin 500 mg tablet 500 mg PO QDAY #7 tabs 08/14 Unknown Rx Allergy/AdvReac Type Severity Reaction Status Date / Time No Known Allergies Allergy Verified 11/26/24 11:15 Family History Father Hypertension Mother CVA (cerebral vascular accident) Other Cancer Surgical History H/O: hysterectomy History of ankle surgery H/O adenoidectomy Hx of colonoscopy History of cataract extraction with lens replacement Hx of tonsillectomy History of ectopic Hx of lithotripsy Hx of bladder repair surgery Social History Smoking Status: Former smoker second hand exposure: No alcohol intake: never substance use type: does not use caffeine: Yes what type of physical activity do you participate in: none frequency: does not exercise do you feel safe at home: Yes Review of Systems (Anesthesia) ROS Narrative System reviewed and no additional complaints, except as documented. 11/26/24 1118 <Electronically signed by Paknaj James MD> Date _ Pankaj James MD Cosigner Signature: Date CC: ~ Signed [facility] Work Phone: 1(188) 592-264708-07-2025 Discharge summary [facility] Medical Records Department [address] [place] [address] Instructions for Home/Discharge Instructions 11/26/24 1249 MR#: [id number] Acct: [id number] Name: SUELLEN LONG ANN Rep #:[id number] : 1950 74 From: Yanira Dominguez PCP: Dr. 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[place] [facility] Discharge Instructions Diet Discharge Diet: No restrictions Activity Discharge Activity: Return to Normal Activity Dressing / Incision Call your doctor if you observe: Fever of 101 or Higher, Inability to urinate and Inability to havea bowel movement Follow Up Care Please Follow Up With: Yanira Barahona MD When: The office will call to make follow-up arrangements Test Results: Test results from this visit will be discussed in further detail at your follow- up appointment, if applicable. Discharge Plan Admission Attending Provider: Yanira Barahona Primary Care Provider: Clyde Linda Instructions Print Language: Comoran Discharge Orders/Prescriptions Prescriptions: New phenazopyridine 200 mg tablet 200 mg PO TID PRN (Reason: pain) Qty: 30 3RF oxycodone-acetaminophen 5-325 mg tablet 1 tab PO Q8H PRN (Reason: pain) 3 Days Qty: 10 0RF ondansetron 4 mg tablet,disintegrating 4 mg PO Q8H PRN (Reason: nausea and vomiting) Qty: 10 0RF Continued alendronate [Fosamax] 70 mg tablet 70 mg PO QWEEK cholecalciferol (vitamin D3) 125 mcg (5,000 unit) capsule 125 mcg PO DAILY calcium carbonate [Calcium 600] 600 mg calcium (1,500 mg) tablet 600 mg PO DAILY estradiol 0.01 % (0.1 mg/gram) cream 1 g vaginal 3XW 90 Days Qty: 42.5 3RF omeprazole 20 MG tablet,disintegrat, delay rel 20 mg PO DAILY Qty: 90 3RF Centrum Silver Women 8 mg iron-400 mcg-50 mcg tablet 1 tab PO DAILY amlodipine 5 mg tablet 5 mg PO QHS rosuvastatin 10 mg tablet 10 mg PO QHS levofloxacin 500 mg tablet 500 mg PO QDAY Qty: 7 0RF Referrals / Follow Up: Clyde Linda MD [Primary Care Provider] - Disposition Disposition (needs filled in before D/C Order can be placed): Home, Self Care 11/26/24 1251Yanira Barahona MD CC: Dr. Clyde Linda MD ~ Signed [facility]08-07-2025 Consult note [facility] Medical Records Department [address] [place] [address] Pre-Anesthesia Evaluation 11/26/24 1116 MR#: [id number] Acct: [id number] Name: SUELLEN LONG Rep #:[id number] : 1950 74 From: Pankaj James MD PCP: Dr. 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:RE G [facility] Y Race: C Location: [place] [address] ASA Classification* ASA Classification ASA Classification: 3 Assessment & Plan Anesthesia* Anesthesia Assessment Anesthesia Assessment: Discussed sedation and/or anesthesia options, risks, benefits, and alternatives with patient/parents/legal guardian/POA. Questions invited. The patient/parents/legal guardian/POA seems to understand and agrees to proceedwith anesthesia plan. Reviewed the physical assessment, medical history, allergy history and patient home medications list prior to surgery/procedure/anesthetic and documented any changes. Performed airway and anesthesia risk assessments. Anesthesia Type Anesthesia Type: General (hiatal hernia, rapid sequence induction) Anesthesia Focused Assessment* Airway Assessment Mouth opens: >3 cm Mallampati Score: III Labs Anesthesia Preop lab: CBC WBC 6.8 K/mm3 (4.4-11.0) 10/28/24 14:10 10/28/24 RBC 4.44 M/mm3 (4.2-5.4) 10/28/24 14:10 10/28/24 Hgb 12.9 g/dL (12.0-15.0) 10/28/24 14:10 10/28/24 Hct 39.7 % (37-47) 10/28/24 14:10 10/28/24 Plt Count 278 K/mm3 (150-450) 10/28/24 14:10 10/28/24 CHEMISTRY Potassium 3.9 mmol/L (3.3-5.1) 10/28/24 14:10 10/28/24 Sodium 143 mmol/L (133-145) 10/28/24 14:10 10/28/24 Magnesium 2.2 mg/dL (1.5-2.2) 10/28/24 14:10 10/28/24 BUN 11 mg/dL (4-19) 10/28/24 14:10 10/28/24 Creatinine 0.73 mg/dL (0.70-1.20) 10/28/24 14:10 10/28/24 Glucose 95 mg/dL (70-99) 10/28/24 14:10 10/28/24 TSH 1.030 uIU/mL (0.358-3.740) 01/14/24 14:41 0908/13 COAG PT 13.8 SECONDS (11.7-14.9) 05/01/20 00:26 Pre-Assessment Diagnosis/Proposed Procedure Planned Operative Procedure(s): CYSTO LEFT RENAL ESWL LEFT STENT INSERTION Anesthesia History Anesthesia History - hat band attacher: Anesthesia History - hat band attacher Hx Hospitalization No 11/12/24 10:47 Any Problems With Anesthesia No 11/12/24 10:47 Cholinesterase deficiency No 11/12/24 10:47 You/Your Family Experience No 11/12/24 10:47 fever (hyperthermia) with Relationship Recent Exposure to Contagious No 10/07/23 08:00 Disease Does patient have nerve No 11/12/24 10:47 stimulator Patient instructed to have device shut off --Does patient have Pacemaker or ICD? When Was Last Pacemaker Check QUESTION #4 FULL TEXT: You/Your Family Experience fever (hyperthermia) with Anesthesia Last Oral Intake Last Oral intake: Last Oral Intake NPO since Meds taken in AM with sips of water? Meds patient instructed to take am of surgery PONV PONV - hat band attacher: PONV - hat band attacher Female Yes 11/12/24 10:47 HX of Motion Sickness No 11/12/24 10:47 HX of N/V After Surgery No 11/12/24 10:47 Non-Smoker Yes 11/12/24 10:47 Duration of Surgery greater Yes 11/12/24 10:47 than 60 minutes Number of Risk Factors 3 11/12/24 10:47 PONV Score Moderate Risk 11/12/24 10:47 Height & Weight Height & Weight: Anesthesia: Height & Weight Height 5 ft 11/20/24 16:22 Respiratory Assessment Respiratory Assessment - hat band attacher: Respiratory Tract Infection Hx - hat band attacher Hx Respiratory Tract Infection No 11/12/24 10:47 STOP Sleep Apnea STOP Sleep Apnea - hat band attacher: STOP Sleep Apnea - hat band attacher Hx Hypertension Yes: CONTROLLED WITH MED 11/12/24 10:47 Hx Sleep Apnea No 11/12/24 10:47 CPAP No 10/07/23 09:25 BIPAP Do you snore loudly (louder No 11/12/24 10:47 than talking or can be heard Do you often feel tired/ No 11/12/24 10:47 fatigued/ sleepy during daytime? Has anyone observed you stop No 11/12/24 10:47 breathing during sleep? STOP Results Negative 11/12/24 10:47 QUESTION #5 FULL TEXT : Do you snore loudly (louder than talking or can be heard through closeddoors)? 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 Specify any problems Hx of Preganancy in last 3 No 11/12/24 10:47 Months Nurse Filling Out Transfusion DSCHRIBER 11/12/24 10:47 & Questions: Date: 11/12/24 11/12/24 10:47 Time: 10:49 11/12/24 10:47 Patient unable to answer at this time (ie. confused, unrespo /Reproduction History /Reproductive History - hat band attacher: /Reproductive Hx- hat band attacher Hx Now No 11/12/24 10:47 Gestational Age (in weeks): EDC: Hx Hx Para Hx Section SAB No 11/12/24 10:47 Active Medications Active Medications: Current Medications Generic Name Dose Route Start Last Admin Trade Name Freq PRN Reason Stop Dose Admin Cefazolin Sodium 2 gm/ Sodium 110 mls @ 200 mls/hr 11/26/24 12:05 Chloride IV 11/26/24 12:37 INTRAOP ONE Lactated Ringer's 1,000 mls @ 15 mls/hr 11/26/24 10:45 IV .Q48H HUSAM PFSH Medical History Cystocele, midline Vaginal atrophy Urinary frequency Osteoporosis Degenerative disc disease Coagulation disorder Presence of pessary Loss of hearing Post-menopausal Bladder disease Arthritis High cholesterol Back pain History of hiatal hernia Gastric reflux History of edema History of echocardiogram Wears glasses History of GI bleed Former smoker Anemia Fracture of talus of right ankle, closed 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, bilateral lower limbs Home Medications ?Medication ?Instructions ?Recorded ?Last Taken ?Type omeprazole 20 mg delayed 20 mg PO DAILY ##90 07/19/20 11/26/24 07:30 Rx release,disintegrating tablet alendronate 70 mg tablet (Fosamax) 70 mg PO QWEEK 07/22 06/15 Unknown History calcium carbonate (Calcium 600) 600 mg PO DAILY Unknown History cholecalciferol (vitamin D3) 125 125 mcg PO DAILY 07/22 06/15 Unknown History mcg (5,000 unit) capsule amlodipine 5 mg tablet 5 mg PO QHS 11/12/24 Unknown History sschtmwh-swjo-kvzo 8 mg-folic 400 1 tab PO DAILY 11/12 Unknown History mcg-K 50 mcg-lutein 300 mcg tablet (Centrum Silver Women) rosuvastatin 10 mg tablet 10 mg PO QHS 11/12/24 Unknow n History estradiol 0.01% (0.1 mg/gram) 1 g vaginal 3XW 3 months #42.5 11/20/24 Unknown Rx vaginal cream grams levofloxacin 500 mg tablet 500 mg PO QDAY #7 tabs 08/14 Unknown Rx Allergy/AdvReac Type Severity Reaction Status Date / Time No Known Allergies Allergy Verified 11/26/24 11:15 Family History Father Hypertension Mother CVA (cerebral vascular accident) Other Cancer Surgical History H/O: hysterectomy History of ankle surgery H/O adenoidectomy Hx of colonoscopy History of cataract extraction with lens replacement Hx of tonsillectomy History of ectopic Hx of lithotripsy Hx of bladder repair surgery Social History Smoking Status: Former smoker second hand exposure: No alcohol intake: never substance use type: does not use caffeine: Yes what type of physical activity do you participate in: none frequency: does not exercise do you feel safe at home: Yes Review of Systems (Anesthesia) ROS Narrative System reviewed and no additional complaints, except as documented. 11/26/24 1118 MD> Date _ Pankaj James MD Cosigner Signature: Date CC: ~ Signed [facility]08-01-2025 Evaluation note* Diagnosis Onset Date Resolution Status Admit Date Cystocele, midline acute November 20, 2024 3:39pm Kidney stones acute November 20, 2024 3:39pm Urinary frequency acute November 20, 2024 3:39pm Urinary tract infection acute A ugust 2024 3:39pm Vaginal atrophy acute November 3:39pm [facility] Work Phone: 1(731) 563-954806-12-2025 Radiology Diagnostic study note [facility] Imaging Services [address], [place] [id number] Abdomen Single View MR#: [id number] Acct: [id number] Name: SUELLEN LONG Rep #: [id number] : 1950 F 73 From: An Jennings MD PCP: Dr. 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: RE G CLI Study:Abdomen Single View Date of Exam: 09/30/24 Exam# [id number] Ordering Dr: Yanira Barahona MD PROCEDURE: ABDOMEN SINGLE VIEW 09/30/2024 REASON FOR EXAM: KUB- KIDNEY STONES TECHNIQUE: Single view abdomen. COMPARISON: 09/18/2024. FINDINGS: Left renal/proximal ureteral stones are again noted with the largest measuring 1.6 cm. 8 mm calcification/stone is noted at the topography of the left sacral ala at [id number]. Moderate amount of fecal residue in the large bowels. Normal visualized lung bases. There is an unremarkable bowel gas pattern. There is no demonstrated free abdominal air. Normal visualized liver. Normal visualized spleen. Normal visualized kidneys. The soft tissue structures of the pelvis are unremarkable. Moderate diffuse spondylosis. RAD/Abdomen Single View IMPRESSION: Left renal/proximal ureteral stones are again noted with the largest measuring 1.6 cm. 8 mm calcification/stone is noted at the topography of the left sacral ala at [id number]. Moderate amount of fecal residue in the large bowels. Reading Location: [place] [address] CC: Dr. Yanira Barahona MD; Dr. 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: RE G CLI Study:Abdomen/Pelvis without Cont Date of Exa m: 09/18/24 Exam# [id number] Ordering Dr: Yanira Barahona MD PROCEDURE: ABDOMEN/PELVIS WITHOUT CONT 09/18/2024 REASON FOR EXAM: KIDNEY STONE TECHNIQUE: Abdomen and pelvis CT without intravenous contrast. Noncontrast technique limits evaluation of the abdominal and pelvic viscera. Coronal and Sagittal reconstruction series were provided. One or more dose reduction techniques were used (e.g., Automated exposure control, adjustment of the mA and/or kV according to patient size, use of iterative reconstruction technique). COMPARISON: Ultrasound from 09/01/2024 FINDINGS: Limited sections of the lung bases demonstrate no focal pulmonary mass. The liver, spleen, pancreas, and both adrenal glands demonstrate no acute findings. 1.4 x 1.4 cm hypodensity within the liver likely a cyst. Multiple large coarse stones within the left kidney and proximal ureter measuring 1.6 x 0.7 cm and 1.2 x 0.9 cm without definite left sided hydronephrosis. These large stones are likely nonobstructive or partially obstructive. The right collecting system is unremarkable. The gallbladder contains a tiny gallstone. No CT evidence of acute cholecystitis. Small hiatal hernia; otherwise stomach is unremarkable. The aorta and IVC demonstrate no acute findings. Moderate to extensive atherosclerosis of the abdominal vasculature. There is no free air, free fluid or intestinal obstruction. The small bowel loops are not dilated. The appendix is normal. No bowel obstruction. Extensive colonic diverticulosis without acute diverticulitis. Mesenteric stranding with prominent mesenteric lymph nodes may reflect panniculitis. The pelvic structures are intact. There is no solid pelvic mass. Pelvic pessary is noted. The urinary bladder is distended. Visualized osseous structures demonstrate no acute abnormality. Tiny fat containing anterior pelvichernia. CT/Abdomen/Pelvis without Cont IMPRESSION: Multiple large coarse stones within the left kidney and proximal ureter measuring 1.6 x 0.7 cm and 1.2 x 0.9 cm without definite left sided hydronephrosis. These large stones are likely nonobstructive or at most partially obstructive. Extensive colonic diverticulosis without acute diverticulitis. No bowel obstruction. Mesenteric stranding with prominent mesenteric lymph nodes may reflect panniculitis. Reading Location: [id number] CC: Dr. Yanira Barahona MD; Dr. Clyde Linda MD ~ Upset Welding Machine Operator: Signed [facility]05-15-2025 Radiology Diagnostic study note [facility] Imaging Services [address] [place] [address] Kidney and Bladder MR#: [id number] Acct: [id number] Name: SUELLEN LONG Rep #: [id number] : 1950 F 73 From: Francesco Diaz MD PCP: Dr. 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: RE Roger CLI Study:Kidney and Bladder Date of Exam: 0 09/01/24 Exam# [id number] Ordering Dr: Yanira Barahona MD PROCEDURE: KIDNEY AND BLADDER 09/01/2024 REASON FOR EXAM: UTI TECHNIQUE: Bilateral renal ultrasound. COMPARISON: None FINDINGS: RIGHT Kidney Size: 11.6 cm x 5.4 cm x 5.9 cm Volume: 190 mL Cortical Thickness (if discernible): 1.1 cm. (>6mm is normal) Fullness of the right renal pelvis. LEFT Kidney Size: 10.2 cm x 5.2 cm x 5.3 cm Volume: 147 mL Cortical Thickness (if discernible): 1.7 cm (>6mm is normal) There is an 8 mm x 10 mm x 4 mm nonobstructive left intrarenal calculus. US/Kidney and Bladder IMPRESSION: Fullness of the right renal pelvis. 8 mm x 10 mm x 4 mm nonobstructive left intrarenal calculus. Reading Location: [facility] CC: Dr. Yanira Barahona MD; Dr. Clyde Linda MD ~ Upset Welding Machine Operator: Signed [facility] Author Ind[facility] Note Date/Time November 26, 2024 2:2 0pm [facility] Medical Records Department [address] [place] [address] Anesthesia Postop Eval I 11/26/24 1419 MR#: [id number] Acct: [id number] Name: SUELLEN LONG Rep #:[id number] : 1950 74 From: Indra CHRISTIANSON PCP: Dr. 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:AL [place] [facility] [place]: C Location: [place] [address] Anesthesia: Postop Eval I Current Vital Signs Temperature: 98 F Pulse Rate: 55 Blood Pressure: 140/82 Respiratory Rate: 16 Pulse Ox: 98 Oxygen Delivery Method: Room Air Assessment Airway patent: Yes Spontaneous unlabored respirations: Yes Mental status: Awake and Calm nausea: No Vomiting: No Anesthesia Complication: No Fluid Hydration Crystalloid volume administer (ml): 800 Total IV fluid infused: 800 Progress Note Anesthesia document: Postop Eval 1 completed: Yes 11/26/24 1420 <Electronically signed by Indra Garcia CRNA> Date _ Indra Garcia CRNA Cosigner Signature: Date CC: ~ Signed [facility] Work Phone: Consult note Author Pankaj James [facility] Note Date/Time November 26, 2024 3:5 4pm [facility] Medical Records Department [address] [place] [address] Anesthesia Postop Eval II 11/26/24 1512 MR#: [id number] Acct: [id number] Name: SUELLEN LONG Rep #:[id number] : 1950 74 From: Pankaj James MD PCP: Dr. 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: G [facility] [place] Race: C Location: [place] [address] Anesthesia Postop Eval I Sum Postop Eval Completion status Anesthesia document: Postop Eval 1 completed: Yes Anesthesia Postop Eval I Summary Anesthesia Postop Eval I Summary: Anesthesia Postop Eval I: Assessment Summary Airway patent Yes 11/26/24 14:20 ORDER DEPARTMENT SUPERVISOR.MDOT Spontaneous unlabored Yes 11/26/24 14:20 ORDER DEPARTMENT SUPERVISOR.MDOT respirations Mental status Awake,Calm 11/26/24 14:20 ORDER DEPARTMENT SUPERVISOR.MDOT nausea No 11/26/24 14:20 ORDER DEPARTMENT SUPERVISOR.MDOT Vomiting No 11/26/24 14:20 ORDER DEPARTMENT SUPERVISOR.MDOT Anesthesia Postop Eval I: Fluid Summary Crystalloid volume administer 800 11/26/24 14:20 ORDER DEPARTMENT SUPERVISOR.MDOT (ml) Colloids volume administered ( ml) Blood Product volume administered (ml) Total IV fluid infused 800 11/26/24 14:20 ORDER DEPARTMENT SUPERVISOR.MDVEENA Anesthesia Postop Eval I: Summary Notes Anesthesia Complication No 11/26/24 14:20 SHANTELLE Anesthesia Complication Comment: Post-operative progress note Anesthesia: Postop Eval II Evaluation Mental status: Awake Pain Level: 0 nausea: No Vomiting: No 11/26/24 1512 <Electronically signed by Pankaj James MD> Date _ Pankaj James MD Cosigner Signature: Date CC: ~ Signed [facility] Work Phone: Evaluation noteNo assessment information available [facility] Work Phone: Reason for referral (narrative)No reason for referral information availableWPro[facility] Work Phone: Summary Purpose Family History No Family History Records Found Relationship Condition Age at Onset Recorded Date/T desirae father Hypertension Unknown mother Cerebrovascular accident (CVA) Unknown Relationship Condition Age at Onset Recorded Date/T desirae Not Specified Malignant neoplasm Unknown father Hypertension Unknown mother Cerebrovascular accident (CVA) Unknown Advance Directives No Advanced Directives Records Found Advance Directive Response Recorded Date/ Time Living Will No July 14, 2020 10:39am Power of Diversified Crops Farmworker No July 14 10:39am Advance Directive Response Recorded Date/ Time Living Will No July 14, 2020 9:39am Power of Diversified Crops Farmworker No July 14 9:39am Advance Directive Response Recorded Date/ Time Do you have a Healthcare Power of Diversified Crops Farmworker? No November 12, 2024 10:47am Chief Complaint and Reason for Visit Chief Complaint SCREENING Chief Complaint Admit Date UTI September 01, 2024 4:57p m Chief Complaint Admit Date UTI September 01, 2024 4:57p m KIDNEY STONE September 18, 2024 8:16a m Chief Complaint Admit Date UTI September 01, 2024 4:57p m KIDNEY STONE September 18, 2024 8:16a m KUB- KIDNEY STONES September 30, 2024 3:02 pm Chief Complaint Admit Date UTI September 01, 2024 4:57p m KIDNEY STONE September 18, 2024 8:16a m KUB- KIDNEY STONES September 30, 2024 3:02 pm PRE OP URINE/SIGNED CONSENT November 20, 2024 3:39pm Chief Complaint Admit Date UTI September 01, 2024 4:57p m KIDNEY STONE September 18, 2024 8:16a m KUB- KIDNEY STONES September 30, 2024 3:02 pm PRE OP URINE/SIGNED CONSENT November 20, 2024 3:39pm Left renal ESWL, Cysto, Left stent inser tion November 26, 2024 10:28am Left renal ESWL, Cysto, Left stent inser tion November 26, 2024 12:51pm Reason for Visit Admit Date Cystocele, midline November 20, 2024 3:3 9pm Kidney stones November 20, 2024 3:3 9pm Urinary frequency November 20, 2024 3:3 9pm Urinary tract infection November 20, 2024 3:39pm Vaginal atrophy November 20, 2024 3:3 9pm Additional Source Comments INFORMATION SOURCE (unrecogn ized section and content) DATE CREATED AUTHOR 03/24/2020 [facility] ([place]) DATE CREATED AUTHOR AUTHOR'S ORGANIZ ATION 12/22/2024 [facility] Goals (unrecognized section and content) Goals may be documented in a n alternate sectionGoals may be documented in an alternate sectionGoals may be documented in an alternate sectionGoals may be documented in an alternate sectionGoals may be documented in an alternate sectionGoals may be documented in an alternate sectionGoals may be documented in an alternate sectionGoals may be documented in an alternate sectionGoals may be documented in an alternate sectionGoals may be documented in an alternate sectionGoals may be documented in an alternate sectionGoals may be documented in an alternate sectionGoals may be documented in an alternate section Care Teams (unrecognized sec tion and content) Team Status: Active Member Role Status Dates Dr. Clyde Linda MD Primary Care Provider Active Team Status: Inactive Member Role Status Dates Dr. Clyde Linda MD Primary Care Provider, Attend ing Provider Active Team Status: Inactive Member Role Status Dates Dr. Clyde Linda MD Primary Care Pr ovider, Attending Provider, Referring Provider Active Team Status: Inactive Member Role Status Dates Dr. Clyde Linda MD Primary Care Provider Active Start: July 29, 2024 End: July 29, 2024 Dr. Clyde Linda MD Attending Provider Active Start: July 29, 2024 End: July 29, 2024 Dr. Clyde Linda MD Referring Provider Active Start: July 29, 2024 End: July 29, 2024 Team Status: Inactive Member Role Status Dates Dr. Clyde Linda MD Primary Care Provider Active Start: September 01, 2024 End: September 01, 2024 Dr. Yanira Barahona MD Attending Provider Active Start: September 01, 2024 End: September 01, 2024 Dr. Yanira Barahona MD Referring Provider Active Start: September 01, 2024 End: September 01, 2024 Team Status: Inactive Member Role Status Dates Dr. Clyde Linda MD Primary Care Provider Active Start: September 18, 2024 End: September 18, 2024 Dr. Yanira Barahona MD Attending Provider Active Start: September 18, 2024 End: September 18, 2024 Dr. Yanira Barahona MD Referring Provider Active Start: September 18, 2024 End: September 18, 2024 Team Status: Inactive Member Role Status Dates Dr. Clyde Linda MD Primary Care Provider Active Start: September 30, 2024 End: September 30, 2024 Dr. Yanira Barahona MD Attending Provider Active Start: September 30, 2024 End: September 30, 2024 Dr. Yanira Barahona MD Referring Provider Active Start: September 30, 2024 End: September 30, 2024 Team Status: Active Member Role/Relationship Status Dates Dr. Clyde Linda MD Primary Care Provider Active Team Status: Inactive Member Role/Relationship Status Dates Dr. Clyde Linda MD Primary Care Provider Active Start: July 29, 2024 End: July 29, 2024 Dr. Clyde Linda MD Attending Provider Active Start: July 29, 2024 End: July 29, 2024 Dr. Clyde Linda MD Referring Provider Active Start: July 29, 2024 End: July 29, 2024 Team Status: Inactive Member Role/Relationship Status Dates Dr. Clyde Linda MD Primary Care Provider Active Start: September 01, 2024 End: September 01, 2024 Dr. Yanira Barahona MD Attending Provider Active Start: September 01, 2024 End: September 01, 2024 Dr. Yanira Barahona MD Referring Provider Active Start: September 01, 2024 End: September 01, 2024 Team Status: Inactive Member Role/Relationship Status Dates Dr. Clyde Linda MD Primary Care Provider Active Start: September 18, 2024 End: September 18, 2024 Dr. Yanira Barahona MD Attending Provider Active Start: September 18, 2024 End: September 18, 2024 Dr. Yanira Barahona MD Referring Provider Active Start: September 18, 2024 End: September 18, 2024 Team Status: Inactive Member Role/Relationship Status Dates Dr. Clyde Linda MD Primary Care Provider Active Start: September 30, 2024 End: September 30, 2024 Dr. Yanira Barahona MD Attending Provider Active Start: September 30, 2024 End: September 30, 2024 Dr. Yanira Barahona MD Referring Provider Active Start: September 30, 2024 End: September 30, 2024 Team Status: Inactive Member Role/Relationship Status Dates Dr. Clyde Linda MD Primary Care Provider Active Start: October 28, 2024 End: October 28, 2024 Dr. Clyde Linda MD Attending Provider Active Start: October 28, 2024 End: October 28, 2024 Dr. Clyde Linda MD Referring Provider Active Start: October 28, 2024 End: October 28, 2024 Team Status: Inactive Member Role/Relationship Status Dates Dr. Clyde Linda MD Primary Care Provider Active Start: October 20, 2024 Dr. Yanira Barahona MD Attending Provider Active Start: October 20, 2024 Team Status: Inactive Member Role/Relationship Status Dates Dr. Clyde Linda MD Primary Care Provider Active Start: October 28, 2024 End: October 28, 2024 Dr. Clyde Linda MD Attending Provider Active Start: October 28, 2024 End: October 28, 2024 Dr. Clyde Linda MD Referring Provider Active Start: October 28, 2024 End: October 28, 2024 Team Status: Inactive Member Role/Relationship Status Dates Dr. Clyde Linda MD Primary Care Provider Active Start: November 20, 2024 End: November 20, 2024 Dr. Clyde Linda MD Referring Provider Active Start: November 20, 2024 End: November 20, 2024 Dr. Yanira Barahona MD Attending Provider Active Start: November 20, 2024 End: November 20, 2024 Team Status: Inactive Member Role/Relationship Status Dates Dr. Clyde Linda MD Primary Care Provider Active Start: November 26, 2024 End: November 26, 2024 Dr. Yanira Barahona MD Attending Provider Active Start: November 26, 2024 End: November 26, 2024 Dr. Yanira Barahona MD Referring Provider Active Start: November 26, 2024 End: November 26, 2024 Team Status: Active Member Role/Relationship Status Dates Dr. Clyde Linda MD Primary Care Provider Active Start: November 26, 2024 Dr. Yanira Barahona MD Attending Provider Active Start: November 26, 2024 Dr. Yanira Barahona MD Referring Provider Active Start: November 26, 2024 Dr. Yanira Barahona MD Other Provider Active Sta rt: November 26, 2024 FOR RECORDS PERTAINING TO PATIENTS WHO ARE [...] BE BASED ON THE PRIMARY CLINICAL RECORDS. [employer] provides no warranty or guarantee of the accuracy or completeness of information in this document.
== END | disposition home or self-care (01) ==
LOC: MTRAD 11:26
PROVIDERS: PCP Family Medicine; Referring Provider Urology; Visit Provider Urology
DX: N20.0 Calculus of kidney (principal)
CPT/HCPCS: 74018

== ENCOUNTER 2025-01-28 07:35 | Day surgery (SDC) | payer MEDICARE, MEDICAID, SELFPAY ==
--- NOTE | 2025-01-20 11:55 | PAT.ANESEVAL ---
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 When Was Last Pacemaker Check QUESTION #4 FULL TEXT: You/Your Family Experience fever (hyperthermia) with Anesthesia Last Oral Intake Last Oral intake: Last Oral Intake NPO since Meds taken in AM with sips of water? 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 Female Yes 01/20/25 11:26 HX of Motion Sickness No 01/20/25 11:26 HX of N/V After Surgery No 01/20/25 11:26 Non-Smoker Yes 01/20/25 11:26 Duration of Surgery greater Yes 01/20/25 11:26 than 60 minutes Number of Risk Factors 3 01/20/25 11:26 PONV Score Moderate Risk 01/20/25 11:26 Height & Weight Height & Weight: Anesthesia: Height & Weight Height 5 ft 01/12/25 12:02 Respiratory Assessment Respiratory Assessment - partridge farmer: Respiratory Tract Infection Hx - partridge farmer Hx Respiratory Tract Infection No 01/20/25 11:26 STOP Sleep Apnea STOP Sleep Apnea - partridge farmer: STOP Sleep Apnea - partridge farmer Hx Hypertension Yes: CONTROLLED WITH MED 01/20/25 11:26 Hx Sleep Apnea No 01/20/25 11:26 CPAP No 01/20/25 11:26 BIPAP Do you snore loudly (louder No 01/20/25 11:26 than talking or can be heard Do you often feel tired/ No 01/20/25 11:26 fatigued/ sleepy during daytime? Has anyone observed you stop No 01/20/25 11:26 breathing during sleep? STOP Results Negative 01/20/25 11:26 QUESTION #5 FULL TEXT : Do you snore loudly (louder than talking or can be heard through closed doors)? 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 Specify any problems Hx of Preganancy in last 3 No 01/20/25 11:26 Months Nurse Filling Out Transfusion DSCHRIBER 01/20/25 11:26 & Questions: Date: 01/20/25 01/20/25 11:26 Time: 11:28 01/20/25 11:26 Patient unable to answer at this time (ie. confused, unrespo /Reproduction History /Reproductive History - partridge farmer: /Reproductive Hx- partridge farmer Hx Now No 01/20/25 11:26 Gestational Age (in weeks): EDC: Hx Hx Para Hx Section SAB No 01/20/25 11:26 PFSH Medical History Hypertension Osteoporosis Degenerative disc disease Coagulation disorder Presence of pessary Loss of hearing Post-menopausal Bladder disease Arthritis High cholesterol Back pain History of hiatal hernia Gastric reflux History of edema History of echocardiogram Wears glasses History of GI bleed Former smoker Anemia DVT, bilateral lower limbs Home Medications ?Medication ?Instructions ?Recorded ?Last Taken ?Type omeprazole 20 mg delayed 20 mg PO DAILY ##90 07/19/20 11/26/24 07:30 Rx release,disintegrating tablet alendronate 70 mg tablet (Fosamax) 70 mg PO QWEEK 08/12/23 Unknown History calcium carbonate (Calcium 600) 600 mg PO DAILY 08/12/23 Unknown History cholecalciferol (vitamin D3) 125 125 mcg PO DAILY 08/12/23 Unknown History mcg (5,000 unit) capsule amlodipine 5 mg tablet 5 mg PO QHS 11/12/24 Unknown History kxciwgll-[id number] 8 mg-folic 400 1 tab PO DAILY 11/12/24 Unknown History mcg-K 50 mcg-lutein 300 mcg tablet (Centrum Silver Women) rosuvastatin 10 mg tablet 10 mg PO QHS 11/12/24 Unknown History estradiol 0.01% (0.1 mg/gram) 1 g vaginal 3XW 3 months #42.5 11/20/24 Unknown Rx vaginal cream grams Allergy/AdvReac Type Severity Reaction Status Date / Time No Known Allergies Allergy Verified 01/20/25 11:21 Family History Father Hypertension Mother CVA (cerebral vascular accident) Other Cancer Surgical History Hx of cystoscopy H/O: hysterectomy History of ankle surgery H/O adenoidectomy Hx of colonoscopy History of cataract extraction with lens replacement Hx of tonsillectomy History of ectopic Hx of lithotripsy Hx of bladder repair surgery Social History Smoking Status: Former smoker second hand exposure: No alcohol intake: never substance use type: does not use caffeine: Yes what type of physical activity do you participate in: none frequency: does not exercise do you feel safe at home: Yes Addt'l Information Additional Findings: EKG NSR; >4 METS Recommendation Anesthesia Recommendation Anesthesia recommendation: OPTIMIZED for anesthesia
[2025-01-25 11:16] LABS: Hematocrit 41.4 % (37-47); Hemoglobin 13.5 g/dL (12.0-15.0); Mean Corp Hgb Conc 32.6 g/dL (32-36); Mean Corpuscular Volume 90.6 fL (81-99); Mean Platelet Vol. 10.3 fl (6.2-12.0); Platelet Count 340 K/mm3 (150-450); RBC Distribution Width CV 13.5 % (11.6-14.6); RBC Distribution Width SD 44.9 fl (35.1-43.9); Red Blood Count 4.57 M/mm3 (4.2-5.4); White Blood Count 6.9 K/mm3 (4.4-11.0)
[2025-01-25 11:47] LABS: Anion Gap 14 (5-15); BUN 11 mg/dL (4-19); BUN/Creat Ratio 18.0 RATIO (10-20); Calcium,Total 9.5 mg/dL (7.6-11.0); Carbon Dioxide 22.7 mmol/L (21.0-32.0); Chloride 106 mmol/L (98-108); Glucose 89 mg/dL (70-99); Potassium 3.8 mmol/L (3.3-5.1)
[2025-01-28] VITALS (9 sets, daily range): BP systolic 126–134; BP diastolic 74–79; PULSE 61–67; RESP 12–16; TEMP 36.1–37.1; O2SAT 97–100; BMI 38.3
--- NOTE | 2025-01-28 07:53 | PRE.ANES_ITS ---
ASA Classification* ASA Classification ASA Classification: 2 Assessment & Plan Anesthesia* Anesthesia Assessment Anesthesia Assessment: Discussed sedation and/or anesthesia options, risks, benefits, and alternatives with patient/parents/legal guardian/POA. Questions invited. The patient/parents/legal guardian/POA seems to understand and agrees to proceed with anesthesia plan. Reviewed the physical assessment, medical history, allergy history and patient home medications list prior to surgery/procedure/anesthetic and documented any changes. Performed airway and anesthesia risk assessments. Anesthesia Type Anesthesia Type: MAC Anesthesia Focused Assessment* Airway Assessment Mouth opens: >3 cm Mallampati Score: II Labs Anesthesia Preop lab: CBC WBC, (4.4-11.0) 6.9 K/mm3 01/25/25, 10:48 RBC, (4.2-5.4) 4.57 M/mm3 01/25/25, 10:48 Hgb, (12.0-15.0) 13.5 g/dL 01/25/25, 10:48 Hct, (37-47) 41.4 % 01/25/25, 10:48 Plt Count, (150-450) 340 K/mm3 01/25/25, 10:48 CHEMISTRY Potassium, (3.3-5.1) 3.8 mmol/L 01/25/25, 10:48 Sodium, (133-145) 143 mmol/L 01/25/25, 10:48 Magnesium, (1.5-2.2) 2.2 mg/dL 10/28/24, 14:10 BUN, (4-19) 11 mg/dL 01/25/25, 10:48 Creatinine, (0.70-1.20) 0.60 mg/dL L 01/25/25, 10:48 Glucose, (70-99) 89 mg/dL 01/25/25, 10:48 TSH, (0.358-3.740) 1.030 uIU/mL 01/14/24, 14:41 COAG PT, (11.7-14.9) 13.8 SECONDS 05/01/20, 00:26 Pre-Assessment Diagnosis/Proposed Procedure Planned Operative Procedure(s): CYSTO LEFT URETEROSCOPY LASER LITHOTRIPSY STONE BASKET EXTRACTION Anesthesia History 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 When Was Last Pacemaker Check QUESTION #4 FULL TEXT: You/Your Family Experience fever (hyperthermia) with Anesthesia Last Oral Intake Last Oral intake: Last Oral Intake NPO since Meds taken in AM with sips of water? Meds patient instructed to take am of surgery PONV PONV - global head advertiser solutions: PONV - global head advertiser solutions Female Yes 01/20/25 11:26 HX of Motion Sickness No 01/20/25 11:26 HX of N/V After Surgery No 01/20/25 11:26 Non-Smoker Yes 01/20/25 11:26 Duration of Surgery greater Yes 01/20/25 11:26 than 60 minutes Number of Risk Factors 3 01/20/25 11:26 PONV Score Moderate Risk 01/20/25 11:26 Height & Weight Height & Weight: Anesthesia: Height & Weight Height 5 ft 01/12/25 12:02 Respiratory Assessment Respiratory Assessment - global head advertiser solutions: Respiratory Tract Infection Hx - global head advertiser solutions Hx Respiratory Tract Infection No 01/20/25 11:26 STOP Sleep Apnea STOP Sleep Apnea - global head advertiser solutions: STOP Sleep Apnea - global head advertiser solutions Hx Hypertension Yes: CONTROLLED WITH MED 01/20/25 11:26 Hx Sleep Apnea No 01/20/25 11:26 CPAP No 01/20/25 11:26 BIPAP Do you snore loudly (louder No 01/20/25 11:26 than talking or can be heard Do you often feel tired/ No 01/20/25 11:26 fatigued/ sleepy during daytime? Has anyone observed you stop No 01/20/25 11:26 breathing during sleep? STOP Results Negative 01/20/25 11:26 QUESTION #5 FULL TEXT : Do you snore loudly (louder than talking or can be heard through closed doors)? 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 Specify any problems Hx of Preganancy in last 3 No 01/20/25 11:26 Months Nurse Filling Out Transfusion DSCHRIBER 01/20/25 11:26 & Questions: Date: 01/20/25 01/20/25 11:26 Time: 11:01/20/25 11:26 Patient unable to answer at this time (ie. confused, unrespo /Reproduction History /Reproductive History - global head advertiser solutions: /Reproductive Hx- global head advertiser solutions Hx Now No 01/20/25 11:26 Gestational Age (in weeks): EDC: Hx Hx Para Hx Section SAB No 01/20/25 11:26 Active Medications Active Medications: Current Medications Generic Name Dose Route Start Last Admin Trade Name Freq PRN Reason Stop Dose Admin Cefazolin Sodium 2 gm/ Sodium 110 mls @ 200 mls/hr 01/28/25 09:20 Chloride IV 01/28/25 09:52 INTRAOP ONE Lactated Ringer's 1,000 mls @ 15 mls/hr 01/28/25 08:00 IV .Q48H HUSAM PFSH Medical History Hypertension Osteoporosis Degenerative disc disease Coagulation disorder Presence of pessary Loss of hearing Post-menopausal Bladder disease Arthritis High cholesterol Back pain History of hiatal hernia Gastric reflux History of edema History of echocardiogram Wears glasses History of GI bleed Former smoker Anemia DVT, bilateral lower limbs Home Medications ?Medication ?Instructions ?Recorded ?Last Taken ?Type omeprazole 20 mg delayed 20 mg PO DAILY ##90 07/19/20 11/26/24 07:30 Rx release,disintegrating tablet alendronate 70 mg tablet (Fosamax) 70 mg PO QWEEK 07/22 06/15 Unknown History calcium carbonate (Calcium 600) 600 mg PO DAILY Unknown History cholecalciferol (vitamin D3) 125 125 mcg PO DAILY 07/22 06/15 Unknown History mcg (5,000 unit) capsule amlodipine 5 mg tablet 5 mg PO QHS 11/12/24 Unknown History xnqucqnc-okmj-vehq 8 mg-folic 400 1 tab PO DAILY 11/12 Unknown History mcg-K 50 mcg-lutein 300 mcg tablet (Centrum Silver Women) rosuvastatin 10 mg tablet 10 mg PO QHS 11/12/24 Unknow n History estradiol 0.01% (0.1 mg/gram) 1 g vaginal 3XW 3 months #42.5 11/20/24 Unknown Rx vaginal cream grams Allergy/AdvReac Type Severity Reaction Status Date / Time No Known Allergies Allergy Verified 01/20/25 11:21 Family History Father Hypertension Mother CVA (cerebral vascular accident) Other Cancer Surgical History Hx of cystoscopy H/O: hysterectomy History of ankle surgery H/O adenoidectomy Hx of colonoscopy History of cataract extraction with lens replacement Hx of tonsillectomy History of ectopic Hx of lithotripsy Hx of bladder repair surgery Social History Smoking Status: Former smoker second hand exposure: No alcohol intake: never substance use type: does not use caffeine: Yes what type of physical activity do you participate in: none frequency: does not exercise do you feel safe at home: Yes Review of Systems (Anesthesia) ROS Narrative System reviewed and no additional complaints, except as documented.
[2025-01-28] MEDS: Lactated Ringers 1,000 ML 15 ML IV (08:12)
--- NOTE | 2025-01-28 08:33 | HP.PCM_ITS ---
History and Physical Date of Admission: 01/28/25 Date of Service: 01/12/25 MR#: [id number] Acct: [id number] Name: SUELLEN LONG Rep #: [id number] : 1950 Provider: Dr. Yanira Barahona MD Age/Sex: 74/F Location: [facility] Status: Signed Intake Vital Signs 11/26/2510:16 01/13/2512:02 Height 5 ft 5 ft Weight: 140 lb BMI 27.3 BP 126/78 H Pulse 62 Temp 98.1 F Intake Visit Reasons: KUB BEFORE APPT. 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 Required: No Is patient in pain?: No Allergies No Known Allergies Allergy (Verified 11/26/24 11:15) Medications ?Medication ?Instructions ?Recorded ?Confirmed ?Type omeprazole 20 mg delayed 20 mg PO DAILY ##90 07/19/20 01/12/25 Rx release,disintegrating tablet alendronate 70 mg tablet (Fosamax) 70 mg PO QWEEK 08/12/23 01/12/25 History calcium carbonate (Calcium 600) 600 mg PO DAILY 08/12/23 01/12/25 Histor y cholecalciferol (vitamin D3) 125 125 mcg PO DAILY 08/12/23 01/12/25 Histo ry mcg (5,000 unit) capsule amlodipine 5 mg tablet 5 mg PO QHS 11/12/24 01/12/25 History yasvefqr-zyzn-oxss 8 mg-folic 400 1 tab PO DAILY 11/12/24 01/12/25 History mcg-K 50 mcg-lutein 300 mcg tablet (Centrum Silver Women) rosuvastatin 10 mg tablet 10 mg PO QHS 11/12/24 01/12/25 History estradiol 0.01% (0.1 mg/gram) 1 g vaginal 3XW 3 months #42.5 11/20/24 01/12/25 Rx vaginal cream grams levofloxacin 500 mg tablet 500 mg PO QDAY #7 tabs 11/23/24 01/12/25 Rx ondansetron 4 mg disintegrating 4 mg PO Q8H PRN nausea and 11/26/2412/22 Rx tablet vomiting #10 tabs ondansetron 4 mg disintegrating 4 mg PO Q8H PRN nausea and 11/26/2412/22 Rx tablet vomiting #10 tabs oxycodone-acetaminophen 5 mg-325 1 tab PO Q8H PRN pain 3 days #10 5 01/12/25 Rx mg tablet tabs phenazopyridine 200 mg tablet 200 mg PO TID PRN pain #30 tabs 11/26/24 01/12/25 Rx phenazopyridine 200 mg tablet 200 mg PO TID #30 tabs 11/26/24 01/12/25 Rx (Pyridium) Have you fallen in the past year?: No PFSH Medical History Cystocele, midline Vaginal atrophy Urinary frequency Osteoporosis Degenerative disc disease Coagulation disorder Presence of pessary Loss of hearing Post-menopausal Bladder disease Arthritis High cholesterol Back pain History of hiatal hernia Gastric reflux History of edema History of echocardiogram Wears glasses History of GI bleed Former smoker Anemia Fracture of talus of right ankle, closed 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, bilateral lower limbs Surgical History H/O: hysterectomy History of ankle surgery H/O adenoidectomy Hx of colonoscopy History of cataract extraction with lens replacement Hx of tonsillectomy History of ectopic Hx of lithotripsy Hx of bladder repair surgery Family History Father Hypertension Mother CVA (cerebral vascular accident) Other Cancer Social History Smoking Status: Former smoker second hand exposure: No alcohol intake: never substance use type: does not use caffeine: Yes what type of physical activity do you participate in: none frequency: does not exercise do you feel safe at home: Yes [facility] Chief Complaint: possible stent removal Details: SUELLEN LONG, is a 74 F. She is here for for follow-up after cystoscopy with left ureteral stent and left renal extracorporal shockwave lithotripsy. She is feeling well. There is no pain, hematuria, dysuria, fever or other sign of concern. She does have some urgency and incontinence. No issues with bowel movements and her appetite is good. She has not passed any significant stone fragments. ROS Const Constitutional: No chills, fatigue, fever(s), headache(s), night sweats, weakness, weight change, abnormal sleep pattern or change in appetite Eyes Eyes: No change in vision ENT ENT: No headache(s) or dry mouth Resp Respiratory: No cough, chest congestion, shortness of breath or wheezing Cardio Cardiology: Positive for other (No chest pain.); No shortness of breath, irregular heart rhythm or lightheadedness Gastro GI: Positive for other (No nausea.); No abdominal pain, change in bowel habits, constipation, diarrhea or vomiting Musc Musculoskeletal: No abnormal gait Skin Skin: No yellowing of the eye, lesions, itchy eyes, rash or skin ulcer Neuro Neurology: No abnormal gait, confusion, dizziness, weakness, headache(s) or memory loss Psych Psychiatric: No abnormal sleep pattern, No change in appetite, No confusion and No memory loss Endo Endocrine: No fatigue, increased thirst/drinking or weight change Aller/Imm Allergy/Immunologic: No itchy eyes or wheezing Ryne/Lymp Hematologic/Lymphatic: No easy bleeding, easy bruising or enlarged lymph nodes Exam Const General: cooperative, healthy appearing, comfortable and no acute distress [facility] Head: normocephalic and atraumatic Ears: hearing grossly normal bilaterally and external ears normal Nose: external nose normal Eyes General: appearance normal, both eyes and all related structures Neck Neck: normal visual inspection and trachea midline Chest Chest palpation & inspection: normal inspection of the chest Resp Effort & Inspection: normal respiratory effort, able to speak in complete sentences and symmetric chest movement Cardio Rate: regular rate GI Inspection: normal to inspection Palpation: soft and nontender General: No CVA tenderness Skin General: no rashes or lesions noted Neuro General: patient alert, patient awake, patient oriented x3 and CN's II-XI intact bilaterally Extrem General: normal to inspection Psych Appearance: grossly normal and well kempt Mental Status: mental status grossly normal Results POC Urinalysis w/Micro Office Urine Color YELLOW Last Edit by Veronica Castañeda on 01/12/25 12:16 Office Urine Clarity ? Last Edit by Veronica Castañeda on 01/12/25 12:16 Office Urine Glucose Negative Last Edit by Veronica Castañeda on 01/12/25 12:16 Office Urine Ketones Negative Last Edit by Veronica Castañeda on 01/12/25 12:16 Office Urine Bilirubin Negative Last Edit by Veronicalukasz Castañeda on 01/12/25 12:16 Office Urine Urobilinogen 0.2 mg/dL Last Edit by Veronicalukasz Castañeda on 01/12/25 12:16 Off Ur Spec Rand 1.015 Last Edit by Veronicalukasz Castañeda on 01/12/25 12:16 Office Urine pH 5.5 Last Edit by Veronica Castañeda on 01/12/25 12:16 Office Urine Protein Trace Last Edit by Veronica Castañeda on 01/12/25 12:16 Office Urine Blood Trace Last Edit by Veronicalukasz Castañeda on 01/12/25 12:16 Office Urine Blood Hemolyzed ? Last Edit by Veronica Castañeda on 01/12/25 12:16 Office Urine Nitrate Negative Last Edit by Veronicalukasz Castañeda on 01/12/25 12:16 Off Ur Leukocytes Positive Last Edit by Veronicalukasz Castañeda on 01/12/25 12:16 125 Veronica Maddy 01/12/25 12:16 Off Ur WBC Microscopic ? Last Edit by Veronicalukasz Castañeda on 01/12/25 12:16 Off Ur RBC Microscopic ? Last Edit by Veronicalukasz Castañeda on 01/12/25 12:16 Off Ur Bacteria Microscopic ? Last Edit by Veronicalukasz Castañeda on 01/12/25 12:16 Supplemental Info KUB reviewed, showing significant lower pole stone burden, nothing at the [facility] Coding Level of Care Code Off vis,est,level 4 Diagnoses Kidney stones N20.0 Urinary tract infection N39.0 Vaginal atrophy N95.2 Cystocele, midline N81.11 Urinary frequency R35.0 Assessment and Plan Assessment and Plan (1) Kidney stones: Status: Acute (2) Urinary tract infection: Status: Acute (3) Vaginal atrophy: Status: Acute (4) Cystocele, midline: Status: Acute (5) Urinary frequency: Status: Acute Orders: Orders POC UA Automated w/Microscopy Today N39.0 - Urinary tract infection, site not specified Plan schedule cystoscopy and left ureteroscopy, laser lithotripsy with stone basket extraction, left ureteral stent change urine culture The procedure, recovery and expectations were explained. The risks, benefits and alternatives were discussed, including but not limited to, the risks of anesthesia, bleeding, infection, injury, pain and the need for further intervention. We have discussed the risk of exposure to and/or potential harm posed by the COVID-19 virus with having a surgery/procedure at this time. A joint decision was made at this time to proceed with the scheduled surgery/procedure as indicated on the consent form. Clinical Quality Measures Falls Risk Screening/Assistive Devices Have you fallen in the past year?: No 01/12/25 1249 <Electronically signed by Yanira Barahona MD> Date Yanira Barahona MD
--- NOTE | 2025-01-28 08:43 | DCINST_ITS ---
Discharge Instructions Diet Discharge Diet: No restrictions Activity Discharge Activity: Return to Normal Activity Dressing / Incision Call your doctor if your incision/area has: Sudden Increased Bleeding Call your doctor if you observe: Fever of 101 or Higher, Inability to urinate and Inability to have a bowel movement Follow Up Care Please Follow Up With: Yanira Barahona MD Test Results: Test results from this visit will be discussed in further detail at your follow- up appointment, if applicable. Discharge Plan Admission Attending Provider: Yanira Barahona Primary Care Provider: Clyde Linda Instructions Print Language: Mongolian Discharge Orders/Prescriptions Prescriptions: New oxycodone-acetaminophen 5-325 mg tablet 1 tab PO Q8H PRN (Reason: pain) 3 Days Qty: 10 0RF ondansetron 4 mg tablet,disintegrating 4 mg PO Q8H PRN (Reason: nausea and vomiting) Qty: 10 0RF phenazopyridine 200 mg tablet 200 mg PO TID PRN (Reason: pain) Qty: 30 3RF Continued alendronate [Fosamax] 70 mg tablet 70 mg PO QWEEK cholecalciferol (vitamin D3) 125 mcg (5,000 unit) capsule 125 mcg PO DAILY calcium carbonate [Calcium 600] 600 mg calcium (1,500 mg) tablet 600 mg PO DAILY estradiol 0.01 % (0.1 mg/gram) cream 1 g vaginal 3XW 90 Days Qty: 42.5 3RF omeprazole 20 MG tablet,disintegrat, delay rel 20 mg PO DAILY Qty: 90 3RF Centrum Silver Women 8 mg iron-400 mcg-50 mcg tablet 1 tab PO DAILY amlodipine 5 mg tablet 5 mg PO QHS rosuvastatin 10 mg tablet 10 mg PO QHS Referrals / Follow Up: Clyde Linda MD [Primary Care Provider, Family Practice] Disposition Disposition (needs filled in before D/C Order can be placed): Home, Self Care
--- NOTE | 2025-01-28 09:15 | CALC_PTH ---
PATIENT: SUELLEN LONG [place] [facility] [id number] AGE/SX: 74/F ROOM: RE01/28/[address]: Dr. Yanira Barahona MD : 1950 BED: DIS: 01/28/2025 SPEC #: [id number] RECD: 01/28/25 11:55 STATUS: JAMEY WINSTON #: [id number] MEAGHAN: 01/28/25 09:[address]: Yanira Barahona DEPT: SURGICAL PATHOLOGY RECD BY: Alexandre Nicole ENTERED: 01/28/25 13:48 SP TYPE: Calculi OTHR DR: Dr. Clyde Linda MD Tissues: A - CALCULI Procedures: Surgery Specimen Level I HEADER OPERATION: Cysto, left ureteroscopy laser litho, stone basket extraction PRE-OP DIAGNOSIS: Kidney stones TISSUE SUBMITTED: A- Left ureteral stones GROSS DIAGNOSIS A. Calculi, ureter, left, cystoscopy, ureteroscopy laser lithotripsy, stone basket extraction: Calculi (gross examination only) - sent for stone analysis. COMMENT The calculus is submitted in its entirety for chemical stone analysis. The results from this study will be reported separately. GROSS DESCRIPTION A. Received fresh labeled with the patient's name and date of . Designated as left ureteral stone are multiple lee to dark brown, irregular calculi ranging from 0.1 cm to 0.4 cm. No sections are submitted. The specimen is for gross examination only. RI 01/28/2025PT:[id number]
[2025-01-28] MEDS: Cefazolin 1 GM/5 ML Vial 2 GM IV (09:44)
[2025-01-28] MEDS: Lidocaine 1% (5 ml sdv) 5 ML Vial IV (10:00)
[2025-01-28] MEDS: fentaNYL 100 MCG/2 ML Ampul 25 MCG IV (10:04)
--- NOTE | 2025-01-28 10:57 | PCM.POST.ANE ---
Anesthesia: Postop Eval I Current Vital Signs Temperature: 97.4 F Pulse Rate: 64 Blood Pressure: 128/79 Respiratory Rate: 14 Pulse Ox: 98 Oxygen Delivery Method: Room Air Assessment Airway patent: Yes Spontaneous unlabored respirations: Yes Mental status: Awake and Calm nausea: No Vomiting: No Anesthesia Complication: No Fluid Hydration Crystalloid volume administer (ml): 800 Total IV fluid infused: 800 Progress Note Anesthesia document: Postop Eval 1 completed: Yes
--- NOTE | 2025-01-28 11:03 | OP.PCM_ITS ---
Operative Report (Standard) Operative Information Date of Procedure: 01/28/25 Pre-Operative Diagnosis: Left renal calculus Post-Operative Diagnosis: Same Surgery/Procedure Performed: Cystoscopy, left ureteroscopy, thulium laser lithotripsy, stone basket extraction, left ureteral stent change explosives operator: No Type of Anesthesia: General RN Documented Start/Stop Times: Operation Date: 01/28/25 09:15 Case Time Into Pre-Op 01/28/25 07:44 Anesthesia Start 01/28/25 09:44 Into Room 01/28/25 09:44 Procedure Start 01/28/25 10:00 Procedure End 01/28/25 10:48 Anesthesia End 01/28/25 10:52 Out of Room 01/28/25 10:52 Into Recovery 01/28/25 10:57 Procedure Start Time: 10:00 Procedure Stop Time: 10:48 Select all DRAINS/GRAFTS/IMPLANTS that apply: Drains Drain details: 6 Iraqi by 22 cm JJ stent Estimated Blood Loss: <5cc Specimen collected: Yes Description of specimen(s) removed: Left renal stone fragments Description of surgery: The patient is a 74-year-old female who had a large UPJ calculus and a large renal calculus who presents for ureteroscopy with laser lithotripsy for remaining stone. Informed consent was obtained. She was taken to the operating room and placed on the operating room table. Anesthesia monitored the head, neck, airway, IV access and vital signs throughout the case. Once anesthesia was appropriately ministered, she was placed into dorsolithotomy position was prepped and draped in usual sterile fashion. The cystoscope was inserted through the urethra under direct visualization into the urinary bladder where the stent was visualized grasped and removed. 2 separate 0.035 Glidewire's were then passed through the ureteral orifice and seen in the renal pelvis on fluoroscopy. The semirigid ureteroscope was utilized to evaluate the distal ureter. Several fragments were identified and removed with a stone basket into the urinary bladder. Once the ureter was free of stone, a flexible ureteroscope was passed over the wire and advanced into the renal pelvis. At this time 1 large lower pole stone was identified. Using a 20 ?m laser fiber, the stone was turned to dust. There were multiple fragments that were also treated. At the conclusion of the procedure there was a significant layer of dust without obvious remaining large stone fragments. The ureteroscope was then removed, revealing no evidence of injury to the ureter. The safety wire was utilized for placement of a 6 Iraqi 22 cm JJ stent with good positioning in the renal pelvis and urinary bladder. The cystoscope was used to flush out stone fragments from the ureter. The bladder was emptied and the cystoscope was removed. She was awakened and taken to the recovery room in good condition. There were no complications during this procedure. Surgical Findings: 1 large lower pole calculus Complications Complications: No Admit VTE Documentation VTE Present on Admission: Yes VTE Mechan Device Prophylaxis: SCD's VTE Pharm Prophylaxis ordered?: No Reason prophylaxis not ordered: Treatment Not Indicated
--- NOTE | 2025-01-28 12:32 | POSTOPAN2_ITS ---
Anesthesia Postop Eval I Sum Postop Eval Completion status Anesthesia document: Postop Eval 1 completed: Yes Anesthesia Postop Eval I Summary Anesthesia Postop Eval I Summary: Anesthesia Postop Eval I: Assessment Summary Airway patent Yes 01/28/25 11:02 [email or web address] [email or web address] [email or web address] Spontaneous unlabored Yes 01/28/25 11:02 GAS [email or web address] [email or web address] respirations Mental status Awake,Calm 01/28/25 11:02 GAS [email or web address] nausea No 01/28/25 11:02 GAS [email or web address] [email or web address].[email or web address] Vomiting No 01/28/25 11:02 GAS [email or web address] [email or web address] Anesthesia Postop Eval I: Fluid Summary Crystalloid volume administer 800 01/28/25 11:02 GAS [email or web address] [email or web address] (ml) Colloids volume administered ( ml) Blood Product volume administered (ml) Total IV fluid infused 800 01/28/25 11:02 GAS [email or web address] [email or web address] Anesthesia Postop Eval I: Summary Notes Anesthesia Complication No 01/28/25 11:02 GAS [email or web address] Anesthesia Complication Comment: Post-operative progress note Anesthesia: Postop Eval II Evaluation Mental status: Awake Pain Level: 0 nausea: No Vomiting: No
--- NOTE | 2025-01-28 12:32 | PCM.POSTANE2 ---
Anesthesia Postop Eval I Sum Postop Eval Completion status Anesthesia document: Postop Eval 1 completed: Yes Anesthesia Postop Eval I Summary Anesthesia Postop Eval I Summary: Anesthesia Postop Eval I: Assessment Summary Airway patent Yes 01/28/25 11:02 PYROTECHNIC [email or web address] Spontaneous unlabored Yes 01/28/25 11:02 PYROTECHNIC ASSEMBLER.[email or web address] respirations Mental status Awake,Calm 01/28/25 11:02 PYROTECHNIC [email or web address].[email or web address] nausea No 01/28/25 11:02 PYROTECHNIC [email or web address].[email or web address] Vomiting No 01/28/25 11:02 PYROTECHNIC [email or web address].[email or web address] Anesthesia Postop Eval I: Fluid Summary Crystalloid volume administer 800 01/28/25 11:02 PYROTECHNIC [email or web address] (ml) Colloids volume administered ( ml) Blood Product volume administered (ml) Total IV fluid infused 800 01/28/25 11:02 PYROTECHNIC [email or web address].[email or web address] Anesthesia Postop Eval I: Summary Notes Anesthesia Complication No 01/28/25 11:02 PYROTECHNIC ASSEMBLER.[email or web address] Anesthesia Complication Comment: Post-operative progress note Anesthesia: Postop Eval II Evaluation Mental status: Awake Pain Level: 0 nausea: No Vomiting: No
== END 2025-01-28 12:29 | disposition home or self-care (01) ==
LOC: SDC 07:36 → AC 07:37
PROVIDERS: PCP Family Medicine; Referring Provider Urology; Visit Provider Urology
PROC: 0TJ98ZZ Inspection of Ureter, Via Natural or Artificial Opening Endoscopic (ICD-10-PCS; CPT 52352; principal; 2025-01-28 09:05)
DX: N20.2 Calculus of kidney with calculus of ureter (principal); N39.0 Urinary tract infection, site not specified; N81.11 Cystocele, midline; Z87.891 Personal history of nicotine dependence; K21.9 Gastro-esophageal reflux disease without esophagitis; E78.00 Pure hypercholesterolemia, unspecified; N95.2 Postmenopausal atrophic vaginitis; R35.0 Frequency of micturition; I10 Essential (primary) hypertension
CPT/HCPCS: 52356; 00873; 36415; 76000; 80048; 82360; 85027; 88300; C1769; C2617; J2405

== ENCOUNTER → 2025-02-11 | Outpatient (CLI) | payer MEDICARE, MEDICAID, SELFPAY ==
--- NOTE | 2025-02-11 18:58 | CT_ITS ---
PROCEDURE: ABDOMEN/PELVIS WITHOUT CONT 02/11/2025 REASON FOR EXAM: POST SURGICAL STONE EVALUATION TECHNIQUE: Procedure Code: CTABDPEL Modality: CT Procedure: ABDOMEN/PELVIS WITHOUT CONT Noncontrast technique limits evaluation of the abdominal and pelvic viscera. Coronal and Sagittal reconstruction series were provided. One or more dose reduction techniques were used (e.g., Automated exposure control, adjustment of the mA and/or kV according to patient size, use of iterative reconstruction technique). RADIATION DOSE SUMMARY: CTDlvol: 7.42 mGy DLP: 333.77 mGycm COMPARISON: Prior study dated September 18, 2024. FINDINGS: Lung bases: The lung bases are clear. Coronary artery calcification. Small hiatal hernia. Liver: There is a 12.6 mm x 16.2 mm cyst in the medial aspect of the right lobe of the liver. This is unchanged. Borderline hepatomegaly. Gallbladder: Surgically absent. Spleen: Normal size. Pancreas: Normal size. No surrounding inflammation. Adrenals: Unremarkable Kidneys: A left-sided double-J stent catheter is seen with the proximal tip in the left renal pelvis. Mild residual left hydronephrosis. There is a 1.2 cm by 0.7 cm stone in the lower pole calyx of the left kidney. The previously seen left pelvic calculus is not seen at this time. Bladder: The distal tip of the left double-J stent catheter is in the left side of the bladder. Reproductive Organs: Prior hysterectomy. Adnexal regions are unremarkable. A pessary device is seen. Bowel: Colonic diverticulosis without diverticulitis. Appendix: The appendix is not identified. There is no inflammatory process identified in the right lower quadrant to suggest appendicitis. Lymph nodes: Unremarkable. Vasculature: Mild diffuse atherosclerotic calcifications are noted. Peritoneum / Retroperitoneum: Small umbilical hernia containing fat. Once again, there is evidence of increased stranding within the root of the mesenteric fat with tiny lymph node suggestive of panniculitis. Bones: Degenerative changes of the spine. Dextroconvex scoliosis. CT/Abdomen/Pelvis without Cont IMPRESSION: Status post left double-J stent catheter placement with removal of the pelvic c alculus. Persistent calculus in the lower pole calyx of the right kidney. Reading Location: [facility]
--- OUTSIDE RECORDS SUMMARY | 2025-02-11 19:04 | XMS RPT_ITS | CCD ---
Author Organization [facility] Care Team Providers Care Dirt Bike Mechanic Name Role Phone Maddi PADILLA, Dr. Clyde Murdock Primary Care Provider [phone] Maddi PADILLA, Dr. Clyde Murdock Attending Provider Maddi PADILLA, Dr. Clyde Murdock Referring Provider Brooklyn PADILLA, Dr. Doyle Attending Provider Brooklyn PADILLA, Dr. Doyle Referring Provider Brooklyn PADILLA, Dr. Doyle Attending Provider Brooklyn PADILLA, Dr. Doyle Referring Provider Brooklyn PADILLA, Dr. Doyle Other Provider Maddi PADILLA, Dr. Clyde Murdock Primary Care Physician Brooklyn PADILLA, Dr. Doyle Attending Physician Brooklyn PADILLA, Dr. Doyle Referring Provider Maddi PADILLA, Dr. Clyde Murdock Attending Physician Maddi PADILLA, Dr. Clyde Murdock Referring Provider Orlando PADILLA, Dr. Card Attending Physician Brooklyn PADILLA, Dr. Doyle Nurse Practitioner Maddi PADILLA, Dr. Clyde Murdock Primary Care Physician Brooklyn PADILLA, Dr. Doyle Attending Physician Brooklyn PADILLA, Dr. Doyle Referring Provider Yanira Barahona Referring Unavailable Clyde Linda Primary Care Unavailable Yanira Barahona Attending Unavailable Clyde Linda Attending Unavailable Schinner, Clyde E Primary Care Unavailable Schinner, Clyde E Referring Unavailable Schinner, Clyde E Primary Care Unavailable Yanira Barahona Attending Unavailable Yanira Barahona Consulting Unavailable Yanira Barahona Referring Unavailable Yanira Barahona Referring Unavailable Schinner, Clyde E Primary Care Unavailable Kyaw Perry Attending Unavailable Yanira Barahona Attending Unavailable Schinner, Clyde E Primary Care Unavailable Yanira Barahona Referring Unavailable Yanira Barahona Consulting Unavailable Schinner, Clyde E Referring Unavailable Schinner, Clyde E Primary Care Unavailable Yanira Barahona Attending Unavailable Schinner, Clyde E Referring Unavailable WynesYanira tan Attending Unavailable Schinner, Clyde E Primary Care Unavailable Schinner, Clyde E Referring Unavailable Schinner, Clyde E Primary Care Unavailable Yanira Barahona Attending Unavailable Yanira Barahona Consulting Unavailable Yanira Barahona Referring Unavailable Schinner, Clyde E Primary Care Unavailable Yanira Barahona Attending Unavailable Schinner Clyde E Attending Unavailable Schinner, Clyde E Primary Care Unavailable Schinner, Clyde E Referring Unavailable Yanira Barahona Referring Unavailable Schinner, Clyde E Primary Care Unavailable Yanira Barahona Attending Unavailable Schinner Clyde E Attending Unavailable Schinner, Clyde E Primary Care Unavailable Schinner, Clyde E Referring Unavailable Yanira Barahona Referring Unavailable Schinner, Clyde E Primary Care Unavailable Yanira Barahona Attending Unavailable Yanira Barahona Referring Unavailable Schinner, Clyde E Primary Care Unavailable Yanira Barahona Attending Unavailable Schtato, Clyde E Primary Care Unavailable Yanira Barahona Referring Unavailable Yanira Barahona Attending Unavailable Yanira Barahona Referring Unavailable Schinner, Clyde E Primary Care Unavailable Yanira Barahona Attending Unavailable Schinner, Clyde E Primary Care Unavailable Yanira Barahona Attending Unavailable Yanira Barahona Referring Unavailable Medications Current Medications Medication Drug Class(es) Dates Sig (Normalized) Sig (Original) acetaminophen 325 mg / oxyCODONE hydrochloride 5 mg oral tablet (6 sources) Opioid Agonist Start: 01-28-2025 take 1 tablet by mouth every eight hours as needed for pain Start: 11-26-2024 End: 01-20-2025 Oxycodone-Acetaminophen 5-32 5 mg tablet Discontinued 1 {tbl} PO Q8H as needed for pain 10 3 0 November 26, 2024 January 20, 2025 11:22am Calculus of kidney Calculus of kidney alendronic acid 70 mg oral tablet (11 sources) Bisphosphonate Start: 08-12-2023 take 1 tablet by mouth every week amLODIPine 5 mg oral tablet (6 sources) Dihydropyridine Calcium Channel Geoffrey Start: 11-12-2024 take 1 tablet by mouth at bedtime calcium carbonate 1500 mg oral tablet (11 sources) Start: 08-12-2023 take 1 tablet by mouth once daily cholecalciferol 0.125 mg oral capsule (11 sources) Vitamin D Start: 08-12-2023 take 1 capsule by mouth once daily estradiol 0.1 mg/ml vaginal cream (5 sources) Estrogen Start: 11-20-2024 Oozdpjrj-Mvh-Ifzf-Fa- Vit K-Lut (Centrum Silver Women) 8 mg iron-400 mcg-50 mcg tablet (6 sources) Start: 11-12-2024 take 1 tablet by mouth once daily Grssvzbx-Cuo-X jordan-Fa-Vit K-Lut (Centrum Silver Women) 8 mg iron-400 mcg-50 mcg tablet Active 1 {tbl} PO DAILY November 12, 2024 12:00am Complies with drug therapy Start: 11-12-2024 take 1 tablet by mouth once da lauryn Start: 11-12-2024 take 1 tablet by mouth once da lauryn Cyniqldu-Sfe-Mite-Fa-Vit K- Lut (Centrum Silver Women) 8 mg iron-400 mcg-50 mcg tablet Active 1 {tbl} PO DAILY November 12, 2024 12:00am omeprazole 20 mg disintegrating oral tablet (18 sources) Proton Pump Inhibitor Start: 07-19-2020 take 1 tablet by mouth once daily ondansetron 4 mg disintegrating oral tablet (11 sources) Serotonin-3 Receptor Antagonist Start: 01-28-2025 take 1 tablet by mouth every eight hours as needed for nausea and vomiting Start: 11-26-2024 End: 01-20-2025 take 1 tablet by mouth every eight hours as needed for nausea and vomiting Ondansetron 4 mg tablet,disintegrating Discontinued 4 mg PO Q8H as needed for nausea and vomiting 10 0 November 26, 2024 12:00am January 20, 2025 11:22am phenazopyridine hydrochlorid e 200 mg oral tablet (11 sources) Start: 01-28-2025 take 1 tablet by andrews th three times daily as needed for pain Start: 11-26-2024 End: 01-20-2025 take 1 tablet by mouth three times daily as needed for pain Phenazopyridine 200 mg tablet Discontinued 200 mg PO THREE TIMES A DAY as needed for pain 30 3 November 26, 2024 12:00am January 20, 2025 11:22am rosuvastatin calcium 10 mg oral tablet (6 sources) HMG-CoA Reductase Inhibitor Start: 11-12-2024 take 1 tablet by mouth at bedtime Completed/Discontinued Medications Medication Drug Class(es) Dates Sig [...] blood thinner baclofen 10 mg oral tablet (18 sources) gamma-Aminobutyric Acid-ergic Agonist Start: 06-10-2020 End: [...] MSSA bacteremia weekly bmp, cbc. Fax to [phone] routine picc care with heparin/saline flush per protocol cyclobenzaprine hydrochloride 10 mg oral tablet (18 sources) Muscle Relaxant Start: 07-14-2020 End: 11-12-2024 Cyclobenzaprine 10 MG tablet Discontinued 10 mg PO NEEDED as needed for muscle spasms July 14, 2020 12:00am November 12, 2024 10:43am docusate sodium 50 mg / sennosides, jail 8.6 mg oral tablet (18 sources) Start: 05-06-2020 End: 06-10-2020 Sennosides-Docusate Sodium [...] 2020 2:58pm ibuprofen 200 mg oral tablet (18 sources) Nonsteroidal Anti-inflammatory Drug Start: 07-06-2020 End: 08-12-2023 take 1-10 tablets by mouth every six hours as needed for pain Ibuprofen (Advil) 200 mg tablet Discontinued 200 mg PO EVERY 6 HOURS as needed for Pain 1-10 Or Fever July 06, 2020 12:00am August 12, 2023 2:26pm lactobacillus acidophilus [id number] unt / pectin 100 mg oral tablet (18 sources) Start: 06-10-2020 End: 08-12-2023 take 1 tablet by mouth twice daily Acidophilus-Pecti n, Collier 1 TABLET tablet Discontinued 1 NMA PO TWICE A DAY 0 June 10, 2020 1:00am August 12, 2023 2:26pm Start: 06-10-2020 take 1 tablet by andrews twice daily Acidophilus-Pectin, Collier Active 1 TAB PO TWICE A DAY June 10, 2020 1:00am levoFLOXacin 500 mg oral tablet (10 sources) Quinolone Antimicrobial Start: 01-22-2025 End: 01-27-2025 take 1 tablet by mouth once daily Levofloxacin 500 mg tablet Discontinued 500 mg PO daily 7 5 0 January 22, 2025 12:00am January 26, 2025 12:00am January 27, 2025 12:09am Start: 11-23-2024 End: 01-20-2025 take 1 tablet by mouth once daily Levofloxacin 500 mg tablet Discontinued 500 mg PO daily 7 0 January 13, 2025 11:55am January 20, 2025 11:22am magnesium hydroxide 80 mg/ml oral suspension (18 sources) Start: 05-06-2020 End: 06-10-2020 take 1 [...] June 10, 2020 2:57pm polyethylene glycol 3350 063542 mg / potassium chloride 2970 mg / sodium bicarbonate 6740 mg / sodium chloride 5860 mg / sodium sulfate 74965 mg powder for oral solution (11 sources) Osmotic Laxative Start: 09-18-2023 End: 11-12-2024 take 4000 mL by mouth once Peg 3350-Electrolytes 236-22.74-6.74 -5.86 gram recon soln Discontinued 4000 mL PO ONCE 4000 0 September 18, 2023 12:00am November 12, 2024 10:43am until fecal effluent is clear; do not exceed a total volume of 4000 mL polysaccharide iron complex 150 mg oral capsule (18 sources) Start: 06-10-2020 End: 08-12-2023 take 1 capsule by mouth once daily at mealtime Polysaccharide Iron Complex 150 MG capsule Discontinued 150 mg PO DAILY WITH MEALS 30 June 10, 2020 1:00am August 12, 2023 2:26pm sulfamethoxazole 800 mg / trimethoprim 160 mg oral tablet (18 sources) Dihydrofolate Reductase Inhibitor Antibacterial, Sulfonamide Antimicrobial [...] Da te Episodic/Chronic Bacterial infection; unspecified site (18 sources) Bacteremia due to Staphylococcus aureus; Translations: [Bacteremia] 07-19-2020 Episodic Calculus of urinary tract (17 sources) Kidney stone; Translations: [Calculus of kidney] Onset: 01-18-2025 11-20-2024 Episodic Deficiency and other anemia (18 sources) Anemia; Translations: [Anemia, unspecified] 07-19-2020 Episodic Comment on above: IN THE PAST Essential hypertension (1 source) Essential (primary) hypertension; Translations: [Essential (primary) hypertension] Onset: 11-02-2024 Chronic Fracture of lower limb (18 sources) Closed fracture of talus; Translations: [Unspecified fracture of right talus, initial encounter for closed fracture] 07-06-2020 Episodic Genitourinary symptoms and ill-defined conditions (14 sources) Increased frequency of urination; Translations: [Frequency of micturition] 11-25-2024 Episodic Infective arthritis and osteomyelitis (except that caused by tuberculosis or sexually transmitted disease) (18 sources) Infective arthritis of right ankle; Translations: [Pyogenic arthritis, unspecified] 07-06-2020 Episodic Malaise and fatigue (18 sources) Asthenia; Translations: [Other malaise] 07-19-2020 Episodic Menopausal disorders (14 sources) Atrophy of vagina; Translations: [Postmenopausal atrophic vaginitis] 11-25-2024 Chronic Osteoarthritis (18 sources) Arthritis of right ankle; Translations: [Primary osteoarthritis, right ankle and foot] 04-25-2020 Chronic Other and unspecified benign neoplasm (11 sources) History of polyp of colon; Translations: [History of colonic polyps] 08-12-2023 Episodic Other bone disease and musculoskeletal deformities (7 sources) Avascular necrosis of bone; 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] 07-06-2020 Chronic Other bone disease and musculoskeletal deformities (11 sources) Idiopathic aseptic necrosis of unspecified ankle; 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] 07-06-2020 Chronic Other diseases of kidney and ureters (2 sources) Hydronephrosis with renal and ureteral calculous obstruction; Translations: [Hydronephrosis with renal and ureteral calculous obstruction] Onset: 12-22-2024 Episodic Other nervous system disorders (18 sources) Unable to walk; Translations: [Difficulty in walking, not elsewhere classified] 07-06-2020 Chronic Other non-traumatic joint disorders (18 sources) Acute ankle pain; Translations: [Pain in right ankle and joints of right foot] 07-06-2020 Episodic Phlebitis; thrombophlebitis and thromboembolism (18 sources) Bilateral deep vein thrombosis of lower extremities; Translations: [Acute embolism and thrombosis of unspecified deep veins of lower extremity, bilateral] 07-19-2020 Episodic Comment on above: 5 YRS AGO Prolapse of female genital organs (14 sources) Midline cystocele; Translations: [Cystocele, midline] 11-25-2024 Chronic Residual codes; unclassified (18 sources) Past history of procedure; Translations: [Other specified postprocedural states] 07-19-2020 Episodic Residual codes; unclassified (18 sources) H/O: ectopic ; Translations: [Personal history of other complications of , childbirth and the puerperium] 07-19-2020 Episodic Urinary tract infections (20 sources) Urinary tract infectious disease; Translations: [Urinary tract infection, site not specified] Onset: 01-12-2025 07-19-2020 Episodic Past or Other Problems Problem Classification Problem Date Documented Da te Episodic/Chronic Other screening for suspected conditions (not mental disorders or infectious disease) (1 source) Encounter for screening mammogram for malignant neoplasm of breast; Translations: [Encounter for screening mammogram for malignant neoplasm of breast] Onset: 03-06-2024 Episodic Results Test Name Value Interpretation Reference Range Facility Calculi, Urinary w / Photoon 02-09-2025 2,8 Dihydroxyad TNP Normal . [facility] Comment on above: Order Comment: Comme nts: left ureteral stones collected in OR Performed By: #### L 3650.0100 ####[facility] [address] [place], [address] AMM ACID URATE TNP Normal . [facility] Comment on above: Order Comment: Comme nts: left ureteral stones collected in OR Performed By: #### L 3650.0100 ####[facility] [address] [place], [address] Bilirubin Ql (U) TNP Normal . [facility] Comment on above: Order Comment: Comme nts: left ureteral stones collected in OR Performed By: #### L 3650.0100 ####[facility] [address] [place], [address] CA BILIRUBINATE TNP Normal . [facility] Comment on above: Order Comment: Comme nts: left ureteral stones collected in OR Performed By: #### L 3650.0100 ####[facility] [address] [place], [address] CA CARBONATE TNP Normal . [facility] Comment on above: Order Comment: Comme nts: left ureteral stones collected in OR Performed By: #### L 3650.0100 ####[facility] [address] [place], [address] CA HYDROG PHOS TNP Normal . [facility] Comment on above: Order Comment: Comme nts: left ureteral stones collected in OR Performed By: #### L 0.0100 ####[facility] [address] [place], [address] CA OXAL DIHYDR 20 Normal . [facility] Comment on above: Order Comment: Comme nts: left ureteral stones collected in OR Performed By: #### L 0.0100 ####[facility] [address] [place], [address] CA OXAL MONOHYD 70 Normal . [facility] Comment on above: Order Comment: Comme nts: left ureteral stones collected in OR Performed By: #### L 3649.0100 ####[facility] [address] [place], [address] CA Palmitate TNP Normal . [facility] Comment on above: Order Comment: Comme nts: left ureteral stones collected in OR Performed By: #### L 3649.0100 ####[facility] [address] [place], [address] CA PHOS (hydro) 10 Normal . [facility] Comment on above: Order Comment: Comme nts: left ureteral stones collected in OR Result Comment: Perf ormed at: [facility] [address] [id number] Dictating Transcribing Machine Servicer: Linda Kowalski PhD, Phone: [phone] Performed By: #### L 3649.0100 ####[facility] [address] [place], [address] CA PHOSPHATE TNP Normal . [facility] Comment on above: Order Comment: Comme nts: left ureteral stones collected in OR Performed By: #### L 3649.0100 ####[facility] [address] [place], [address] CA Stearate TNP Normal . [facility] Comment on above: Order Comment: Comme nts: left ureteral stones collected in OR Performed By: #### L 0.0100 ####[facility] [address] [place], [address] CHOLESTEROL TNP Normal . [facility] Comment on above: Order Comment: Comme nts: left ureteral stones collected in OR Performed By: #### L 3649.0100 ####[facility] [address] [place], [address] Color (U) Brown Normal . [facility] Comment on above: Order Comment: Comme nts: left ureteral stones collected in OR Performed By: #### L 0.0100 ####[facility] [address] [place], [address] COMMENT TNP Normal . [facility] Comment on above: Order Comment: Comme nts: left ureteral stones collected in OR Performed By: #### L 3649.0 ####[facility] [address] [place], [address] CYSTINE TNP Normal . [facility] Comment on above: Order Comment: Comme nts: left ureteral stones collected in OR Performed By: #### L 3649.0100 ####[facility] [address] [place], [address] Drug/Metabolite TNP Normal . [facility] Comment on above: Order Comment: Comme nts: left ureteral stones collected in OR Performed By: #### L 3649.0100 ####[facility] [address] [place], [address] MAG MICHAELA PHOS TNP Normal . [facility] Comment on above: Order Comment: Comme nts: left ureteral stones collected in OR Performed By: #### L 3649.0100 ####[facility] [address] [place], [address] NA ACID URATE TNP Normal . [facility] Comment on above: Order Comment: Comme nts: left ureteral stones collected in OR Performed By: #### L 0.0100 ####[facility] [address] [place], [address] NEWBERYITE TNP Normal . [facility] Comment on above: Order Comment: Comme nts: left ureteral stones collected in OR Performed By: #### L 3650.0100 ####[facility] [address] [place], [address] Other Component TNP Normal . [facility] Comment on above: Order Comment: Comme nts: left ureteral stones collected in OR Performed By: #### L 3650.0100 ####[facility] [address] [place], [address] SIZE 3x3 Normal . [facility] Comment on above: Order Comment: Comme nts: left ureteral stones collected in OR Result Comment: Mult iple pieces received. Dimensions of the largest piece reported. Performed By: #### L 0.0100 ####[facility] [address] [place], [address] SOURCE Comment Normal . [facility] Comment on above: Order Comment: Comme nts: left ureteral stones collected in OR Result Comment: Left Ureter Performed By: #### L 0.0100 ####[facility] [address] [place], [address] TRIAMTERENE TNP Normal . [facility] Comment on above: Order Comment: Comme nts: left ureteral stones collected in OR Performed By: #### L 0.0100 ####[facility] [address] [place], [address] URIC ACID TNP Normal . [facility] Comment on above: Order Comment: Comme nts: left ureteral stones collected in OR Performed By: #### L 0.0100 ####[facility] [address] [place], [address] URIC ACID DIHYD TNP Normal . [facility] [place] [facility] Comment on above: Order Comment: Commcollette nts: left ureteral stones collected in OR Performed By: #### L 3650.0100 ####[facility] [address] [place], [address] WEIGHT 22 mg Normal . [facility] Comment on above: Order Comment: Commcollette nts: left ureteral stones collected in OR Performed By: #### L 3650.0100 ####[facility] [address] [place], [address] XANTHINE TNP Normal . [facility] Comment on above: Order Comment: Commcollette nts: left ureteral stones collected in OR Performed By: #### L 3650.0100 ####[facility] [address] [place], [address] Surgical pathology reportOrd ered By: Shanice Esqueda on 01-29-2025 Surgical pathology study [facility] Discharge Instructionon Discharge Instruction [facility] Medical Records Department [address] [place] [address] Instructions for Home/Discharge Instructions 01/28/25 0843 MR#: [id number] Acct: [id number] Name: SUELLEN LONG Rep #: [id number] : 1950 74 From: Yanira Barahona MD PCP: Dr. 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:REG [facility] Discharge Instructions Diet Discharge Diet: No restrictions Activity Discharge Activity: Return to Normal Activity Dressing / Incision Call your doctor if your incision/area has: Sudden Increased Bleeding Call your doctor if you observe: Fever of 101 or Higher, Inability to urinate and Inability to have a bowel movement Follow Up Care Please Follow Up With: Yanira Barahona MD Test Results: Test results from this visit will be discussed in further detail at your follow-up appointment, if applicable. Discharge Plan Admission Attending Provider: Yanira Baarhona Primary Care Provider: Clyde Linda Print Language: Swazi Discharge Orders/Prescription s Prescriptions: New oxycodone-acetamino phen 5-325 mg tablet 1 tab PO Q8H PRN (Reason: pain) 3 Days Qty: 10 0RF ondansetron 4 mg tablet,disintegrati ng 4 mg PO Q8H PRN (Reason: nausea and vomiting) Qty: 10 0RF phenazopyridine 200 mg tablet 200 mg PO TID PRN (Reason: pain) Qty: 30 3RF Continued alendronate [Fosamax] 70 mg tablet 70 [...] 10 mg tablet 10 mg PO QHS Referrals / Follow Up: Clyde Linda MD [Primary Care Provider, Family Practice] Disposition Disposition (needs filled in before D/C Order can be placed): Home, Self Care 01/28/25 1103 Yanira Barahona MD CC: Dr. Clyde Linda MD Signed [facility] MR/POSTOP.[facility] 01-28-2025 MR/POSTOP.[facility] Medical Records Department [address] [place] [address] Anesthesia Postop Eval I 01/28/25 1057 MR#: [id number] Acct: [id number] Name: SUELLEN LONG Rep #: [id number] : 1950 74 From: Nitin Flores CRNA PCP: Dr. 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:REG SDC Y Race: C Location: [place] [address] Anesthesia: Postop Eval I Current Vital Signs Temperature: 97.4 F Pulse Rate: 64 Blood Pressure: 128/79 Respiratory Rate: 14 Pulse Ox: 98 Oxygen Delivery Method: Room Air Assessment Airway patent: Yes Spontaneous unlabored respirations: Yes Mental status: Awake and Calm nausea: No Vomiting: No Anesthesia Complication: No Fluid Hydration Crystalloid volume administer (ml): 800 Total IV fluid infused: 800 Progress Note Anesthesia document: Postop Eval 1 completed: Yes 01/28/25 1213 Date Nitin Flores [employer] SUPERVISOR Cosigner Signature: Date CC: Signed Normal [facility] MR/[id number] 01-28-2025 MR/POSTOPAN2 [facility] Medical Records Department [address] [place] [address] Anesthesia Postop Eval II 01/28/25 1232 MR#: [id number] Acct: [id number] Name: SUELLEN LONG Rep #: [id number] : 1950 74 From: Naveen Abebe MD PCP: Dr. 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:[facility] Y Race: C Location: [facility] Anesthesia Postop Eval I Sum Postop Eval Completion status Anesthesia document: Postop Eval 1 completed: Yes Anesthesia Postop Eval I Summary Anesthesia Postop Eval I Summary: Anesthesia Postop Eval I: Assessment Summary Airway patent Yes 01/28/25 11:02 [employer] SUPERVISOR.JBLOU Spontaneous unlabored Yes 01/28/25 11:02 [employer] SUPERVISOR.JBLOU respirations Mental status Awake,Calm 01/28/25 11:02 [employer] SUPERVISOR.JBLOU nausea No 01/28/25 11:02 [employer] SUPERVISOR.JBLOU Vomiting No 01/28/25 11:02 [employer] SUPERVISOR.JBLOU Anesthesia Postop Eval I: Fluid Summary Crystalloid volume administer 800 01/28/25 11:02 [employer] SUPERVISOR.JBLOU (ml) Colloids volume administered ( ml) Blood Product volume administered (ml) Total IV fluid infused 800 01/28/25 11:02 [employer] SUPERVISOR.JBLOU Anesthesia Postop Eval I: Summary Notes Anesthesia Complication No 01/28/25 11:02 [employer].JBLOU Anesthesia Complication Comment: Post-operative progress note Anesthesia: Postop Eval II Evaluation Mental status: Awake Pain Level: 0 nausea: No Vomiting: No 01/28/25 1232 Date Naveen Raya Signature: Date CC: Signed Normal [facility] Operative Reporton 5 Operative Report [facility] Medical Records Department [address] [place] [address] Operative Report 01/28/25 1103 MR#: [id number] Acct: [id number] Name: SUELLEN LONG Rep #: [id number] : 1950 74 From: Yanira Barahona MD PCP: Dr. 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:[facility] Location: [place] [address] Operative Report (Standard) Operative Information Date of Procedure: 01/28/25 Pre-Operative Diagnosis: Left renal calculus Post-Operative Diagnosis: Same Surgery/Procedure Performed: Cystoscopy, left ureteroscopy, thulium laser lithotripsy, stone basket extraction, left ureteral stent change glass silverer: No Type of Anesthesia: General RN Documented Start/Stop Times: Operation Date: 01/28/25 09:15 Case Time Into Pre-Op 01/28/25 07:44 Anesthesia Start 01/28/25 09:44 Into Room 01/28/25 09:44 Procedure Start 01/28/25 10:00 Procedure End 01/28/25 10:48 Anesthesia End 01/28/25 10:52 Out of Room 01/28/25 10:52 Into Recovery 01/28/25 10:57 Procedure Start Time: 10:00 Procedure Stop Time: 10:48 Select all DRAINS/GRAFTS/IMPLA NTS that apply: Drains Drain details: 6 Citizen Of [place] by 22 cm JJ stent Estimated Blood Loss: <5cc Specimen collected: Yes Description of specimen(s) removed: Left renal stone fragments Description of surgery: The patient is a 74-year-old female who had a large UPJ calculus and a large renal calculus who presents for ureteroscopy with laser lithotripsy for remaining stone. Informed consent was obtained. She was taken to the operating room and placed on the operating room table. Anesthesia monitored the head, neck, airway, IV access and vital signs throughout the case. Once anesthesia was appropri ately ministered, she was placed into dorsolithotomy position was prepped and draped in usual sterile fashion. The cystoscope was inserted through the urethra under direct visualization into the urinary bladder where the stent was visualized grasped and removed. 2 separate 0.035 Glidewire's were then passed through the ureteral orifice and seen in the renal pelvis on fluoroscopy. The semirigid ureteroscope was utilized to evaluate the distal ureter. Several fragments were identified and removed with a stone basket into the urinary bladder. Once the ureter was free of stone, a flexible ureteroscope was passed over the wire and advanced into the renal pelvis. At this time 1 large lower pole stone was identified. Using a 20 ???m laser fiber, the stone was turned to dust. There were multiple fragments that were also treated. At the conclusion of the procedure there was a significant layer of dust without obvious remaining large stone fragments. The ureteroscope was then removed, revealing no evidence of injury to the ureter. The safety wire was utilized for placement of a 6 Citizen Of [place] 22 cm JJ stent with good positioning in the renal pelvis and urinary bladder. The cystoscope was used to flush out stone fragments from the ureter. The bladder was emptied and the cystoscope was removed. She was awakened and taken to the recovery room in good condition. There were no complications during this procedure. Surgical Findings: 1 large lower pole calculus Complications Complications: No Admit VTE Documentation VTE Present on Admission: Yes VTE Mechan Device Prophylaxis: SCD's VTE Pharm Prophylaxis ordered?: No Reason prophylaxis not ordered: Treatment Not Indicated 01/28/25 1107 Cosigner Signature (if applicable): CC: Dr. Yanira Barahona MD; Dr. Clyde Linda MD Signed Normal [facility] Surgery Specimen Level Ion 1 Surgery Specimen Level I ---- Patient Age/Sex Location Account Attending Physician SUELLEN LONG 74/F [facility] [id number] Dr. Yanira Barahona MD Specimen: [id number] Received: 01/28/25 Status: JAMEY Barber Num: [id number] Spec Type: Calculi Subm Dr: Dr. Yanira Barahona MD HEADER OPERATION: Cysto, left ureteroscopy laser litho, stone basket extraction PRE-OP DIAGNOSIS: Kidney stones TISSUE SUBMITTED: A- Left ureteral stones GROSS DIAGNOSIS A. Calculi, ureter, left, cystoscopy, ureteroscopy laser lithotripsy, stone basket extraction: Calculi (gross examination only) - sent for stone analysis. COMMENT The calculus is submitted in its entirety for chemical stone analysis. The results from this study will be reported separately. GROSS DESCRIPTION A. Received fresh labeled with the patient's name and date of . Designated as left ureteral stone are multiple lee to dark brown, irregular calculi ranging from 0.1 cm to 0.4 cm. No sections are submitted. The specimen is for gross examination only. CO 01/28/2025PT:04889 Patient Age/Sex Location Account Attending Physician SUELLEN LONG 74/F [facility] [id number] Dr. Yanira Barahona MD Signed (signatur e on file) Dr. Shanice Esqueda DO 01/29/25 0941 [facility] Comment on above: Performed By: #### P DOMINIQUE ####[facility] [address] [place], [address] Anion gap in Serum or Plasma Ordered By: Yanira Barahona on 01-25-2025 Anion gap [Moles/Vol] 14 mmol/L 09-03 [facility] BUN/creatinine ratioOrdered By: Yanira Barahona on 01-25-2025 Urea nitrogen/Creatinine [Mass ratio] 18.0 mg/mg 02-08 [facility] Basic Metabolic Profile (BMP )on 01-25-2025 BUN/CRE 18.0 RATIO Normal 02-08 [facility] Comment on above: Performed By: #### L 100.0500, L500.2500 ####[facility] [address] [place], [address] Calcium [Mass/Vol] 9.5 mg/dL Normal 7.6-11.0 [facility] Comment on above: Performed By: #### L 100.0500, L500.2500 ####[facility] [address] [place], [address] Chloride [Moles/Vol] 106 mmol/L Normal 98-108 [facility] Comment on above: Performed By: #### L 100.0500, L500.2500 ####[facility] [address] [place], [address] CO2 [Moles/Vol] 22.7 mmol/L Normal 21.0-32.0 [facility] Comment on above: Performed By: #### L 100.0500, L500.2500 ####[facility] [address] [place], [address] Creatinine [Mass/Vol] 0.60 mg/dL Low 0.70-1.20 [facility] Comment on above: Performed By: #### L 100.0500, L500.2500 ####[facility] [address] [place], [address] GAP 14 Normal 09-03 [facility] Comment on above: Performed By: #### L 100.0500, L500.2500 ####[facility] [address] [place], [address] GFR/1.73 sq M.predicted among non-blacks MDRD (S/P/Bld) [Vol rate/Area] 94 mL/min/{1.73_m2} Normal >60 [facility] Comment on above: Result Comment: mL/m in/1.73m2 CKD-EPI Creatinine Equation (2020) Performed By: #### L 100.0500, L500.2500 ####[facility] [address] [place], [address] Glucose [Mass/Vol] 89 mg/dL Normal 70-99 [facility] Comment on above: Performed By: #### L 100.0500, L500.2500 ####[facility] [address] [place], [address] Potassium [Moles/Vol] 3.8 mmol/L Normal 3.3-5.1 [facility] Comment on above: Performed By: #### L 100.0500, L500.2500 ####[facility] [address] [place], [address] Sodium [Moles/Vol] 143 mmol/L Normal 133-145 [facility] Comment on above: Performed By: #### L 100.0500, L500.2500 ####[facility] [address] [place], [address] Urea nitrogen [Mass/Vol] 11 mg/dL Normal 4-19 [facility] Comment on above: Performed By: #### L 100.0500, L500.2500 ####[facility] [address] [place], [address] CBC-Complete Blood Cnt No Di ffon 01-25-2025 Erythrocyte distribution width (RBC) [Ratio] 13.5 % Normal 11.6-14.6 [facility] Comment on above: Performed By: #### L 100.0500, L500.2500 ####[facility] [address] [place], [address] Hematocrit (Bld) [Volume fraction] 41.4 % Normal 37-47 [facility] Comment on above: Performed By: #### L 100.0500, L500.2500 ####[facility] [address] [place], [address] Hemoglobin (Bld) [Mass/Vol] 13.5 g/dL Normal 12.0-15.0 [facility] Comment on above: Performed By: #### L 100.0500, L500.2500 ####[facility] [address] [place], [address] MCH (RBC) [Entitic mass] 29.5 pg Normal 27.0-32.0 [facility] Comment on above: Performed By: #### L 100.0500, L500.2500 ####[facility] [address] [place], [address] MCHC (RBC) [Mass/Vol] 32.6 g/dL Normal 32-36 [facility] Comment on above: Performed By: #### L 100.0500, L500.2500 ####[facility] [address] [place], [address] MCV (RBC) [Entitic vol] 90.6 fL Normal 81-99 [facility] Comment on above: Performed By: #### L 100.0500, L500.2500 ####[facility] [address] [place], [address] Platelet mean volume (Bld) [Entitic vol] 10.3 fL Normal 6.2-12.0 [facility] Comment on above: Performed By: #### L 100.0500, L500.2500 ####[facility] [address] [place], [address] Platelets (Bld) [#/Vol] 340 10*3/uL Normal 150-450 [facility] Comment on above: Performed By: #### L 100.0500, L500.2500 ####[facility] [address] [place], [address] RBC (Bld) [#/Vol] 4.57 10*6/uL Normal 4.2-5.4 [facility] Comment on above: Performed By: #### L 100.0500, L500.2500 ####[facility] [address] [place], [address] RDW SD 44.9 fl High 35.1-43.9 [facility] Comment on above: Performed By: #### L 100.0500, L500.2500 ####[facility] [address] [place], [address] WBC (Bld) [#/Vol] 6.9 10*3/uL Normal 4.4-11.0 [facility] Comment on above: Performed By: #### L 100.0500, L500.2500 ####[facility] [address] [place], [address] Carbon dioxide, total [Moles /volume] in Central venous bloodOrdered By: Yanira Barahona on 01-25-2025 CO2 [Moles/Vol] 22.7 mmol/L 21.0-32.0 [facility] Chloride assayOrdered By: Thierno Barahona on 01-25-2025 Chloride [Moles/Vol] 106 mmol/L 98-108 [facility] Erythrocyte distribution wid th ratioOrdered By: Yanira Barahona on 01-25-2025 Erythrocyte distribution width (RBC) [Ratio] 13.5 % 11.6-14.6 [facility] Erythrocyte distribution wid th standard deviationOrdered By: Yanira Barahona on 01-25-2025 Erythrocyte distribution width (RBC) [Ratio] 44.9 fl High 35.1-43.9 [facility] Glomerular filtration rate ( GFR) estimation/1.73 sq m using serum, plasma, or whole bOrdered By: Yanira Barahona on 01-25-2025 GFR/1.73 sq M.predicted among non-blacks MDRD (S/P/Bld) [Vol rate/Area] 94 mL/min/{1.73_m2} >60 [facility] Comment on above: mL/min/1.73m2 CKD-EP I Creatinine Equation (2020) Hematocrit Auto (Bld) [Volum e fraction]Ordered By: Yanira Barahona on 01-25-2025 Hematocrit (Bld) [Volume fraction] 41.4 % 37-47 [facility] Hemoglobin measurementOrdere d By: Yanira Barahona on 01-25-2025 Hemoglobin (Bld) [Mass/Vol] 13.5 g/dL 12.0-15.0 [facility] MCV (mean corpuscular volume ) determinationOrdered By: Yanira Barahona on 01-25-2025 MCV (RBC) [Entitic vol] 90.6 fL 81-99 [facility] Mean corpuscular hemoglobin (MCH) determinationOrdered By: Yanira Barahona on 01-25-2025 MCH (RBC) [Entitic mass] 29.5 pg 27.0-32.0 [facility] Mean corpuscular hemoglobin concentration (MCHC) determinationOrdered By: Yanira Barahona on 01-25-2025 MCHC (RBC) [Mass/Vol] 32.6 g/dL 32-36 [facility] Mean platelet volume determi nationOrdered By: Yanira Barahona on 01-25-2025 Platelet mean volume (Bld) [Entitic vol] 10.3 fL 6.2-12.0 [facility] Platelet countOrdered By: Thierno Barahona on 01-25-2025 Platelets (Bld) [#/Vol] 340 10*3/uL 150-450 [facility] Potassium measurement (mass/ volume)Ordered By: Yanira Barahona on 01-25-2025 Potassium (Unsp spec) [Mass/Vol] 3.8 mmol/L 3.3-5.1 [facility] RBC Auto (Bld) [#/Vol]Ordere d By: Yanira Barahona on 01-25-2025 RBC (Bld) [#/Vol] 4.57 10*6/uL 4.2-5.4 [facility] Serum creatinine measurement (mass/volume)Ordered By: Yanira Barahona on 01-25-2025 Creatinine [Mass/Vol] 0.60 mg/dL Low 0.70-1.20 [facility] Serum glucose measurement (m ass/volume)Ordered By: Yanira Barahona on 01-25-2025 Glucose [Mass/Vol] 89 mg/dL 70-99 [facility] Serum or plasma calcium ralph urement (mass/volume)Ordered By: Yanira Barahona on 01-25-2025 Calcium [Mass/Vol] 9.5 mg/dL 7.6-11.0 [facility] Serum or plasma urea nitroge n measurement (mass/volume)Ordered By: Yanira Barahona on 01-25-2025 Urea nitrogen [Mass/Vol] 11 mg/dL 4-19 [facility] Sodium levelOrdered By: Tr Barahona on 01-25-2025 Sodium [Moles/Vol] 143 mmol/L 133-145 [facility] White blood cell (WBC) count Ordered By: Yanira Barahona on 01-25-2025 WBC (Bld) [#/Vol] 6.9 10*3/uL 4.4-11.0 [facility] Laboratory - Chemistry and C hemistry - challengeOrdered By: Yanira Barahona on 01-21-2025 Bilirubin Ql (U) Negative [facility] Glucose Ql (U) Negative [facility] Ketones Ql (U) Negative [facility] pH (U) 6 [pH] [facility] Specific gravity (U) [Rel density] 1.020 [facility] Urobilinogen (U) [Mass/Vol] 0.0609632 mg/dL [facility] Laboratory - Hematology and Cell countsOrdered By: Yanira Barahona on 01-21-2025 Hemoglobin Ql (U) Large [facility] Laboratory - UrinalysisOrder ed By: Yanira Barahona on 01-21-2025 Nitrite Ql (U) Negative [facility] Protein Ql (U) 3+ [facility] No Panel InformationOrdered By: Yanira Barahona on 01-21-2025 Urine Leukocytes Positive [facility] Urine Non-Hemolyzed Blood Negative [facility] Office Visit Reporton 2024 Office Visit Report [facility] [place] [address] OFFICE VISIT Date of Service: 01/21/25 MR#: [id number] Acct: [id number] Patient: SUELLEN LONG Rep #: [id number] : 1950 Provider: Dr. Yanira Morin i, MD Age/Sex: 74/F Location: [facility] Status: Signed Intake Vital Signs 01/12/25 12:02 Height 5 ft Weight: 140 lb BMI 27.3 BP 126/78 H Pulse 62 Temp 98.1 F Intake Visit Reasons: pre-op urine C S sign consent Chief Complaint: possible stent removal Allergies No Known Allergies Allergy (Verified 01/20/25 11:21) Have you fallen in the past year?: No Nurse's Note: Patient dropped off a urine sample for preop culture Results POC UA Auto w/o Microscopy Office Urine Color Last Edit by Zofia Sykes on 01/21/25 13:51 Office Urine Clarity Last Edit by Zofia Sykes on 01/21/25 13:51 Office Urine Glucose Negative Last Edit by Zofia Sykes on 01/21/25 13:51 Office Urine Ketones Negative Last Edit by Zofia Sykes on 01/21/25 13:51 Office Urine Bilirubin Negative Last Edit by Zofia Sykes on 01/21/25 13:51 Office Urine Urobilinogen 0.2 mg/dL Last Edit by Zofia Sykes on 01/21/25 13:51 Off Ur Spec Delanson 1.020 Last Edit by Zofia Sykes on 01/21/25 13:51 Office Urine pH 6 Last Edit by Zofia Sykes on 01/21/25 13:51 Office Urine Protein 3+ Last Edit by Zofia Sykes on 01/21/25 13:51 Office Urine Blood Large Last Edit by Zofia Sykes on 01/21/25 13:51 Office Urine Blood Hemolyzed Negative Last Edit by Zofia Sykes on 01/21/25 13:51 Office Urine Nitrate Negative Last Edit by Zofia Sykes on 01/21/25 13:51 Off Ur Leukocytes Positive Last Edit by Zofia Sykes on 01/21/25 13:51 leuks 70 Assessment and Plan Assessment and Plan Orders: Orders POC UA Auto w/o Microscopy 01/21/25 N20.0 - Calculus of kidney Clinical Quality Measures Falls Risk Screening/Assistive Devices Have you fallen in the past year?: No 01/25/25 3465 Date Yanira Raya Signature: Date (if applicable) CC: [facility] MR/PAT.Waqar 01-20-2025 MR/PAT.[facility] Medical Records Department [address] [place] [address] PAT - Anesthesia 01/20/25 1155 MR#: [id number] Acct: [id number] Name: SUELLEN LONG Rep #: [id number] : 1950 74 From: Nikolay Zapata MD PCP: Dr. 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:PRE [facility] Y Race: C Location: [facility] Pre-Assessment Diagnosis/Proposed Procedure Planned Operative Procedure(s): CYSTO LEFT URETEROSCOPY LASER LITHOTRIPSY STONE BASKET EXTRACTION Anesthesia History Anesthesia History - cash person: Anesthesia History - cash person Hx Hospitalization No 01/20/25 11:26 Any Problems With Anesthesia No 01/20/25 11:26 Cholinesterase deficiency No 01/20/25 11:26 You/Your Family Experience No 01/20/25 11:26 fever (hyperthermia) with Relationship Recent Exposure to Contagious No 11/26/24 11:16 Disease Does patient have nerve No 01/20/25 11:26 stimulator Patient instructed to have device shut off --Does patient have Pacemaker or ICD? When Was Last Pacemaker Check QUESTION #4 FULL TEXT: You/Your Family Experience fever (hyperthermia) with Anesthesia Last Oral Intake Last Oral intake: Last Oral Intake NPO since Meds taken in AM with sips of water? Meds patient instructed to take am of surgery PONV PONV - cash person: PONV - cash person Female Yes 01/20/25 11:26 HX of Motion Sickness No 01/20/25 11:26 HX of N/V After Surgery No 01/20/25 11:26 Non-Smoker Yes 01/20/25 11:26 Duration of Surgery greater Yes 01/20/25 11:26 than 60 minutes Number of Risk Factors 3 01/20/25 11:26 PONV Score Moderate Risk 01/20/25 11:26 Height Weight Height Weight: Anesthesia: Height Weight Height 5 ft 01/12/25 12:02 Respiratory Assessment Respiratory Assessment - cash person: Respiratory Tract Infection Hx - cash person Hx Respiratory Tract Infection No 01/20/25 11:26 STOP Sleep Apnea STOP Sleep Apnea - cash person: STOP Sleep Apnea - cash person Hx Hypertension Yes: CONTROLLED WITH MED 01/20/25 11:26 Hx Sleep Apnea No 01/20/25 11:26 CPAP No 01/20/25 11:26 BIPAP Do you snore loudly (louder No 01/20/25 11:26 than talking or can be heard Do you often feel tired/ No 01/20/25 11:26 fatigued/ sleepy during daytime? Has anyone observed you stop No 01/20/25 11:26 breathing during sleep? STOP Results Negative 01/20/25 11:26 QUESTION #5 FULL TEXT : Do you snore loudly (louder than talking or can be heard through closed doors)? 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 Specify any problems Hx of Preganancy in last 3 No 01/20/25 11:26 Months Nurse Filling Out Transfusion DSCHRIBER 01/20/25 11:26 Questions: Date: 01/20/25 01/20/25 11:26 Time: 11:01/20/25 11:26 Patient unable to answer at this time (ie. confused, unrespo /Reproduct ion History /Reproduct jia History - cash person: /Reproduct jia Hx- cash person Hx Now No 01/20/25 11:26 Gestational Age (in weeks): EDC: Hx Hx Para Hx Section SAB No 01/20/25 11:26 [facility] Medical History Hypertension Osteoporosis Degenerative disc disease Coagulation disorder Presence of pessary Loss of hearing Post-menopausal Bladder disease Arthritis High cholesterol Back pain History of hiatal hernia Gastric reflux History of edema History of echocardiogram Wears glasses History of GI bleed Former smoker Anemia DVT, bilateral lower limbs Home Medications ???Medication ???Instructions ???Recorded ???Last Taken ???Type omeprazole 20 mg delayed 20 mg PO DAILY ##90 07/19/2011/26 07:30 Rx release,disintegrat ing tablet alendronate 70 mg tablet (Fosamax) 70 mg PO QWEEK 08/12/23 Unknown History calcium carbonate (Calcium 600) 600 mg PO DAILY 08/12/23 Unknown H istory (more content not included)... Normal [facility] Abdomen Single Viewon 2024 Abdomen Single View [facility] Imaging Services [address] [place] [address] Abdomen Single View MR#: [id number] Acct: [id number] Name: SUELLEN LONG Rep #: [id number] : 1950 F 74 From: Haider Huffman MD PCP: Dr. 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: REG CLI Study: Abdomen Single View Date of Exam: 01/12/25 Exam# [id number] Ordering Dr: Yanira Barahona MD PROCEDURE: ABDOMEN SINGLE VIEW 01/12/2025 REASON FOR EXAM: KUB- KIDNEY STONES TECHNIQUE: Procedure Code: RADABD Modality: DX Procedure: ABDOMEN SINGLE VIEW COMPARISON: KUB, 09/30/2024. FINDINGS: There is a nonobstructive bowel gas pattern. There is a left-sided double-J ureteral stent in good position. There is a cluster of calcifications projected over the lower pole of the left kidney measuring 2.6 x 1.3 cm in total. There are no calcifications projected along the path of the stent. There is a vaginal cerclage noted. There is severe multilevel degenerative disc disease of the lower thoracic and lumbar spine. There is mild dextroscoliosis of the lumbar spine. RAD/Abdomen Single View IMPRESSION: 1. Left nephrolithiasis. 2. Left-sided double-J ureteral stent in good position. 3. Other findings as noted. Reading Location: [id number] CC: Dr. Yanira Barahona MD; Dr. Clyde Linda MD Manager Front: Signed Normal [facility] Laboratory - Chemistry and C hemistry - challengeOrdered By: Yanira Barahona on 01-12-2025 Bilirubin Ql (U) Negative [facility] Glucose Ql (U) Negative [facility] Ketones Ql (U) Negative [facility] pH (U) 5.5 [pH] [facility] Specific gravity (U) [Rel density] 1.015 [facility] Urobilinogen (U) [Mass/Vol] 0.4423817 mg/dL [facility] Laboratory - Hematology and Cell countsOrdered By: Yanira Barahona on 01-12-2025 Hemoglobin Ql (U) Trace [facility] Laboratory - Specimen inform ationOrdered By: Yanira Barahona on 01-12-2025 Color (U) YELLOW [facility] Laboratory - UrinalysisOrder ed By: Yanira Barahona on 01-12-2025 Nitrite Ql (U) Negative [facility] Protein Ql (U) Trace [facility] MR/BMS.BUSon 01-12-2025 MR/BMS.BUS [facility] [address], [address] [place] [address] OFFICE VISIT Date of Service: 01/12/25 MR#: [id number] Acct: [id number] Name: SUELLEN LONG Rep #: [id number] : 1950 Provider: Dr. Yanira Morin i, MD Age/Sex: 74/F Location: [facility] Status: Signed Intake Vital Signs 11/26/24 11:16 01/12/25 12:02 Height 5 ft 5 ft Weight: 140 lb BMI 27.3 BP 126/78 H Pulse 62 Temp 98.1 F Intake Visit Reasons: KUB BEFORE APPT. 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 Is patient in pain?: No Allergies No Known Allergies Allergy (Verified 11/26/24 11:15) Medications ???Medication ???Instructions ???Recorded ???Confirmed ???Type omeprazole 20 mg delayed 20 mg PO DAILY ##90 07/19/2001/12 Rx release,disintegrat ing tablet alendronate 70 mg tablet (Fosamax) 70 mg PO QWEEK 08/12/23 01/12/25 History calcium carbonate (Calcium 600) 600 mg PO DAILY 08/12/23 01/12/25 History cholecalciferol (vitamin D3) 125 125 mcg PO DAILY 08/12/23 01/12/25 History mcg (5,000 unit) capsule amlodipine 5 mg tablet 5 mg PO QHS 11/12/24 01/12/25 Hist ory squvwvkq-bsvd-okbs 8 mg-folic 400 1 tab PO DAILY 11/12/24 01/12/25 History mcg-K 50 mcg-lutein 300 mcg tablet (Centrum Silver Women) rosuvastatin 10 mg tablet 10 mg PO QHS 11/12/24 01/12/25 His tory estradiol 0.01% (0.1 mg/gram) 1 g vaginal 3XW 3 months #42.5 05/1601/12/25 Rx vaginal cream grams levofloxacin 500 mg tablet 500 mg PO QDAY #7 tabs 11/23/24 Rx ondansetron 4 mg disintegrating 4 mg PO Q8H PRN nausea and 5 01/12/25 Rx tablet vomiting #10 tabs ondansetron 4 mg disintegrating 4 mg PO Q8H PRN nausea and 5 01/12/25 Rx tablet vomiting #10 tabs oxycodone-acetamino phen 5 mg-325 1 tab PO Q8H PRN pain 3 days #10 0 11/26/24 01/12/25 Rx mg tablet tabs phenazopyridine 200 mg tablet 200 mg PO TID PRN pain #30 tabs 01/12/25 Rx phenazopyridine 200 mg tablet 200 mg PO TID #30 tabs 11/26/24 Rx (Pyridium) Have you fallen in the past year?: No PFSH Medical History Cystocele, midline Vaginal atrophy [...] home: Yes HPI HPI Urology Chief Complaint: possible stent removal Details: SUELLEN LONG, is a 74 F. She is here for for follow-up after cystoscopy with left ureteral stent and left renal extracorporal shockwave lithotripsy. She is feeling well. There is no pain, hematuria, dysuria, fever or other sign of concern. She does have some urgency and incontinence. No issues with bowel movements and her appetite is good. She has not passed any significant stone fragments. ROS Const Constitutional: No chills, fatigue, fever(s), [...] Psychiatric: No abnormal sleep pattern, No change i (more content not included)... Normal [facility] No Panel InformationOrdered By: Yanira Barahona on 01-12-2025 Urine Bacteria Small [facility] Urine Leukocytes Positive [facility] Comment on above: 125 Urine Microscopic RBC Moderate [facility] Urine Microscopic WBC Moderate [facility] Discharge Instructionon 08-0 Discharge Instruction [facility] Medical Records Department [address] [place] [address] Instructions for Home/Discharge Instructions 11/26/24 1249 MR#: [id number] Acct: [id number] Name: SUELLEN LONG Rep #: [id number] : 1950 74 From: Yanira Barahona MD PCP: Dr. 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:REG [facility] Discharge Instructions Diet Discharge Diet: No restrictions [...] Care Provider: Clyde Linda Instructions Print Language: Swazi Discharge Orders/Prescription s Prescriptions: New phenazopyridine 200 [...] MD CC: Dr. Clyde Linda MD Signed Normal [facility] MR/POSTOP.[facility] 11-26-2024 MR/POSTOP.[facility] Medical Records Department [address] [place] [address] Anesthesia Postop Eval I 11/26/24 1419 MR#: [id number] Acct: [id number] Name: SUELLEN LONG Rep #: [id number] : 1950 74 From: Indra Garcia CRNA PCP: Dr. 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:REG 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.MDOT Vomiting No 11/26/24 14:20 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 CHECKERS AND 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 SUPERVISOR.MDOT Anesthesia Postop Eval I: Fluid Summary Crystalloid volume administer 800 11/26/24 14:20 FO[employer] CHECKERS AND CASHIERS SUPERVISOR.MDOT (ml) Colloids volume administered ( ml) Blood Product volume administered (ml) Total IV fluid infused 800 11/26/24 14:20 [facility] Anesthesia Postop Eval I: Summary Notes Anesthesia Complication No 11/26/24 14:20 [place] Anesthesia Complication Comment: Post-operative progress note Anesthesia: Postop Eval II Evaluation Mental status: Awake Pain Level: 0 nausea: No Vomiting: No 11/26/24 1512 Date Pankaj James MD Cosigner Signature: Date CC: Signed Normal [facility] Operative Reporton 5 Operative Report [facility] Medical Records Department [address] [place] [address] Operative Report 11/26/24 1251 MR#: [id number] Acct: [id number] Name: SUELLEN LONG Rep #: [id number] : 1950 74 From: Yanira Barahona MD PCP: Dr. 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:[facility] Location: [place] [address] Operative Report (Standard) Operative Information Date of Procedure: 11/26/24 Pre-Operative Diagnosis: Left renal and ureteropelvic junction stones and hydronephrosis Post-Operative Diagnosis: Same Surgery/Procedure Performed: Cystoscopy with left ureteral stent insertion, left renal extracorporal shockwave lithotripsy glass silverer: No Type of Anesthesia: General RN Documented Start/Stop Times: Operation Date: 11/26/24 12:05 Case Time Into Pre-Op 11/26/24 10:40 Out of Pre-Op 11/26/24 12:45 Anesthesia Start 11/26/24 12:55 Into Room 11/26/24 12:55 Procedure Start 11/26/24 13:07 Procedure End 11/26/24 14:11 Procedure Start Time: 13:07 Procedure Stop Time: 14:11 Select all DRAINS/GRAFTS/IMPLA NTS that apply: Drains Drain details: 6 Citizen Of [place] by 22 cm JJ stent Estimated Blood [...] pelvis as seen on fluoroscopy. A 6 Citizen [place] 22 cm JJ stent was placed over [...] MD; Dr. Clyde Linda MD Signed Normal [facility] Laboratory - Chemistry and C hemistry - challengeOrdered By: Yanira Barahona on 11-20-2024 Bilirubin Ql (U) Negative [facility] Glucose Ql (U) Negative [facility] Ketones Ql (U) Negative [facility] pH (U) 5 [pH] [facility] Specific gravity (U) [Rel density] 1.020 [facility] Urobilinogen (U) [Mass/Vol] Negative [facility] Laboratory - Hematology and Cell countsOrdered By: Yanira Barahona on 11-20-2024 Hemoglobin Ql (U) Small [facility] Laboratory - UrinalysisOrder ed By: Yanira Barahona on 11-20-2024 Nitrite Ql (U) Positive [facility] Protein Ql (U) 1+ [facility] MR/Harsha 11-20-2024 MR/SONIA [facility] [address], [address] [place] [address] OFFICE VISIT Date of Service: 11/20/24 MR#: [id number] Acct: [id number] Name: SUELLEN LONG Rep #: [id number] : 1950 Provider: Dr. Yanira Morin i, MD Age/Sex: 74/F Location: [facility] Status: Signed with Addenda ADDENDUM by Dr. 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 Normal [facility] MR/PAT.MOon 11-20-2024 MR/PAT.[facility] Medical Records Department [address] [place] [address] PAT - Anesthesia 11/20/241952 MR#: [id number] Acct: [id number] Name: SUELLEN LONG Rep #: [id number] : 1950 74 From: Kevin Govea MD PCP: Dr. 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:PRE [facility] Y Race: C Location: [facility] Pre-Assessment Diagnosis/Proposed Procedure Planned Operative Procedure(s): CYSTO LEFT RENAL ESWL LEFT STENT INSERTION Anesthesia History Anesthesia History - cash person: Anesthesia History - cash person Hx Hospitalization No 11/12/24 10:47 Any Problems [...] take am of surgery PONV PONV - cash person: PONV - cash person Female Yes 11/12/24 10:47 HX of Motion Sickness No 11/12/24 10:47 HX of N/V After Surgery No 11/12/24 10:47 Non-Smoker Yes 11/12/24 10:47 Duration of Surgery greater Yes 11/12/24 10:47 than 60 minutes Number of Risk Factors 3 11/12/24 10:47 PONV Score Moderate Risk 11/12/24 10:47 Height Weight Height Weight: Anesthesia: Height Weight Height 5 ft 10/07/23 08:00 Respiratory Assessment Respiratory Assessment - cash person: Respiratory Tract Infection Hx - cash person Hx Respiratory Tract Infection No 11/12/24 10:47 STOP Sleep Apnea STOP Sleep Apnea - cash person: STOP Sleep Apnea - cash person Hx Hypertension Yes: CONTROLLED WITH MED 11/12/24 [...] Tobacco Use History Tobacco Use History - cash person: Tobacco Use History - cash person Tobacco Use Smoking Status Former smoker 11/12/24 10:47 Hx Tobacco Use No 11/12/24 10:47 Years Smoking Packs Smoked per Day Smoking Cessation Date was No - quit smoking greater 11/12/24 10:47 within the last 15 years than 15 years ago Hx Smoking Cessation Date 09/20/76 11/12/24 10:47 Hx Smoking Cessation No 11/12/24 10:47 Counseling Hematologic Medial History Hematologic Hx - cash person: 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 Normal [facility] No Panel InformationOrdered By: Yanira Barahona on 11-20-2024 Urine Leukocytes Positive [facility] Urine Non-Hemolyzed Blood Negative [facility] Electrocardiogram reportOrde red By: Kyaw Perry on 11-18-2024 EKG study [facility] Cardiovascular Services [address] [place] [address] 12 Lead EKG 11/17/24 1342 MR#: [id number] Acct: [id number] Name: SUELLEN LONG Rep #:[id number] : 1950 74 From: Kyaw Perry MD Attending Dr: Dr. Yanira Barahona MD Status: PRE SDC Ordering Dr: Yanira Barahona MD Date: 11/17/24 Location: [facility] Sex: F C Admitted: Test Reason : PRE-OP Blood Pressure : */* mmHG Vent. Rate : 62 BPM Atrial Rate : 62 BPM P-R Int : 158 ms QRS Dur : 88 ms QT Int : 428 ms P-R-T Axes : 9 -8 21 degrees QTcB Int : 434 ms Normal sinus rhythm Nonspecific ST and T wave abnormality Abnormal ECG Confirmed by ORLANDO PADILLA, KYAW ([id number]), editor book LANDEN CONNOR ([id number]) on 58:38:55 AM Referred By: Yanira Barahona Confirmed By: KYAW PERRY MD 11/18/24 0838 Date _ Kyaw Perry MD CC: Dr. Yanira Barahona MD; Dr. Clyde Linda MD ~ Signed [facility] Other 12 Lead EKGon 11-17-2024 12 Lead EKG [facility] Cardiovascular Services [address] [place] [address] 12 Lead EKG 11/17/24 1342 MR#: [id number] Acct: [id number] Name: SUELLEN LONG Rep #: [id number] : 1950 74 From: Kyaw Perry MD Attending Dr: Dr. Yanira Barahona MD Status: PRE SDC Ordering Dr: Yanira Barahona MD Date: 11/17/24 Location: [facility] Sex: F C Admitted: Test Reason : PRE-OP Blood Pressure : */* mmHG Vent. Rate : 62 BPM Atrial Rate : 62 BPM P-R Int : 158 ms QRS Dur : 88 ms QT Int : 428 ms P-R-T Axes : 9 -8 21 degrees QTcB Int : 434 ms Normal sinus rhythm Nonspecific ST and T wave abnormality Abnormal ECG Confirmed by ORLANDO PADILLA, KYAW ([id number]), editor book LANDEN CONNOR ([id number]) on 11/18/2024 8:38:55 AM Referred By: Yanira Barahona Confirmed By: KYAW PERRY MD 11/18/24837 Date Kyaw Perry MD CC: Dr. Yanira Barahona MD; Dr. Clyde Linda MD Signed Normal [facility] Absolute lymphocyte countOrd ered By: Clyde Linda on 10-28-2024 Lymphocytes Auto (Unsp spec) [#/Vol] 2.21 10*3/uL 0.83-4.51 [facility] Absolute neutrophil countOrd ered By: Clyde Linda on 10-28-2024 Neutrophils (Bld) [#/Vol] 3.9 10*3/uL 2.0-7.7 [facility] Anion gap in Serum or Plasma Ordered By: Clyde Linda on 10-28-2024 Anion gap [Moles/Vol] 12 mmol/L 5-15 [facility] Automated lymphocyte count a s percentage of total leukocytesOrdered By: Clyde Linda on 10-28-2024 Lymphocytes/100 WBC Auto (Unsp spec) 32.7 % 19-41 [facility] BUN/creatinine ratioOrdered By: Clyde Linda on 10-28-2024 Urea nitrogen/Creatinine [Mass ratio] 14.4 mg/mg 10-20 [facility] Basophil percentageOrdered B y: Clyde Linda on 10-28-2024 Basophils/100 WBC (Bld) 1.0 % 0-1 [facility] Bilirubin, totalOrdered By: Clyde Linda on 10-28-2024 Bilirubin [Mass/Vol] 0.43 mg/dL 0.00-1.30 [facility] CBC W/Diff, Automatedon 07-0 9-2024 Absolute Lymph 2.21 X10 3/uL Normal 0.83-4.51 [facility] Comment on above: Order Comment: Order Date: 10/28/24 Order Info: [id number] - CBCD Performed By: #### L 100.0100, L500.4050, L501.5200, L500.4100 #### [facility] [address] [place], [address] Absolute Neut 3.9 X10 3/uL Normal 2.0-7.7 [facility] Comment on above: Order Comment: Order Date: 10/28/24 Order Info: [id number]- - CBCD Performed By: #### L 100.0100, L500.4050, L501.5200, L500.4100 #### [facility] [address] [place], [address] Basophils/100 WBC (Bld) 1.0 % Normal 0-1 [facility] Comment on above: Order Comment: Order Date: 10/28/24 Order Info: 0184- - CBCD Performed By: #### L 100.0100, L500.4050, L501.5200, L500.4100 #### [facility] [address] [place], [address] Eosinophils/100 WBC (Bld) 1.9 % Normal 0-5 [facility] Comment on above: Order Comment: Order Date: 10/28/24 Order Info: 0184-1 - CBCD Performed By: #### L 100.0100, L500.4050, L501.5200, L500.4100 #### [facility] [address] [place], [address] Erythrocyte distribution width (RBC) [Ratio] 14.2 % Normal 11.6-14.6 [facility] Comment on above: Order Comment: Order Date: 10/28/24 Order Info: 0184-1 - CBCD Performed By: #### L 100.0100, L500.4050, L501.5200, L500.4100 #### [facility] [address] [place], [address] Hematocrit (Bld) [Volume fraction] 39.7 % Normal 37-47 [facility] Comment on above: Order Comment: Order Date: 10/28/24 Order Info: 0184-1 - CBCD Performed By: #### L 100.0100, L500.4050, L501.5200, L500.4100 #### [facility] [address] [place], [address] Hemoglobin (Bld) [Mass/Vol] 12.9 g/dL Normal 12.0-15.0 [facility] Comment on above: Order Comment: Order Date: 10/28/24 Order Info: 0184-1 - CBCD Performed By: #### L 100.0100, L500.4050, L501.5200, L500.4100 #### [facility] [address] [place], [address] IG% 0.100 Normal 0.0-0.9 [facility] Comment on above: Order Comment: Order Date: 10/28/24 Order Info: 0184-1 - CBCD Result Comment: IG% - Immature Granulocytes (promyelocytes, myelocytes and metamyelocytes) > 1% indicates that a LEFT SHIFT is Present. Performed By: #### L 100.0100, L500.4050, L501.5200, L500.4100 #### [facility] [address] [place], [address] Lymphocytes/100 WBC (Bld) 32.7 % Normal 19-41 [facility] Comment on above: Order Comment: Order Date: 10/28/24 Order Info: 0184-1 - CBCD Performed By: #### L 100.0100, L500.4050, L501.5200, L500.4100 #### [facility] [address] [place], [address] MCH (RBC) [Entitic mass] 29.1 pg Normal 27.0-32.0 [facility] Comment on above: Order Comment: Order Date: 10/28/24 Order Info: 0184-1 - CBCD Performed By: #### L 100.0100, L500.4050, L501.5200, L500.4100 #### [facility] [address] [place], [address] MCHC (RBC) [Mass/Vol] 32.5 g/dL Normal 32-36 [facility] Comment on above: Order Comment: Order Date: 10/28/24 Order Info: 0184-1 - CBCD Performed By: #### L 100.0100, L500.4050, L501.5200, L500.4100 #### [facility] [address] [place], [address] MCV (RBC) [Entitic vol] 89.4 fL Normal 81-99 [facility] Comment on above: Order Comment: Order Date: 10/28/24 Order Info: 0184-1 - CBCD Performed By: #### L 100.0100, L500.4050, L501.5200, L500.4100 #### [facility] [address] [place], [address] Monocytes/100 WBC (Bld) 6.8 % Normal 0-10 [facility] Comment on above: Order Comment: Order Date: 10/28/24 Order Info: 0184-1 - CBCD Performed By: #### L 100.0100, L500.4050, L501.5200, L500.4100 #### [facility] [address] [place], [address] Neutrophils/100 WBC (Bld) 57.5 % Normal 47-70 [facility] Comment on above: Order Comment: Order Date: 10/28/24 Order Info: 0184-1 - CBCD Performed By: #### L 100.0100, L500.4050, L501.5200, L500.4100 #### [facility] [address] [place], [address] Nucleated RBC (Bld) [#/Vol] 0 10*3/uL Normal 0-5 [facility] Comment on above: Order Comment: Order Date: 10/28/24 Order Info: 0184-1 - CBCD Performed By: #### L 100.0100, L500.4050, L501.5200, L500.4100 #### [facility] [address] [place], [address] Platelet mean volume (Bld) [Entitic vol] 11.5 fL Normal 6.2-12.0 [facility] Comment on above: Order Comment: Order Date: 10/28/24 Order Info: 0184-1 - CBCD Performed By: #### L 100.0100, L500.4050, L501.5200, L500.4100 #### [facility] [address] [place], [address] Platelets (Bld) [#/Vol] 278 10*3/uL Normal 150-450 [facility] Comment on above: Order Comment: Order Date: 10/28/24 Order Info: 0184-1 - CBCD Performed By: #### L 100.0100, L500.4050, L501.5200, L500.4100 #### [facility] [address] [place], [address] RBC (Bld) [#/Vol] 4.44 10*6/uL Normal 4.2-5.4 [facility] Comment on above: Order Comment: Order Date: 10/28/24 Order Info: 0184-1 - CBCD Performed By: #### L 100.0100, L500.4050, L501.5200, L500.4100 #### [facility] [address] [place], [address] RDW SD 45.8 fl High 35.1-43.9 [facility] Comment on above: Order Comment: Order Date: 10/28/24 Order Info: 0184-1 - CBCD Performed By: #### L 100.0100, L500.4050, L501.5200, L500.4100 #### [facility] [address] [place], [address] WBC (Bld) [#/Vol] 6.8 10*3/uL Normal 4.4-11.0 [facility] Comment on above: Order Comment: Order Date: 10/28/24 Order Info: 0184-1 - CBCD Performed By: #### L 100.0100, L500.4050, L501.5200, L500.4100 #### [facility] [address] [place], [place], [address] Calculated very low density lipoprotein (VLDL) cholesterol measurementOrdered By: Clyde Linda on 10-28-2024 Calculated very low density lipoprotein (VLDL) cholesterol measurement 34 mg/dL 5-40 [facility] Carbon dioxide, total [Moles /volume] in Central venous bloodOrdered By: Clyde Linda on 10-28-2024 CO2 [Moles/Vol] 22.9 mmol/L 21.0-32.0 [facility] Chloride assayOrdered By: Key Linda on 10-28-2024 Chloride [Moles/Vol] 109 mmol/L High 98-108 [facility] Comprehensive Metabolic Prof ilon 10-28-2024 Albumin [Mass/Vol] 4.3 g/dL Normal 3.4-4.8 [facility] Comment on above: Order Comment: Order Date: 10/28/24 Order Info: [id number] - CMP Order Info: [id number] - LIPID Order Info: [id number] - MG Performed By: #### L 100.0100, L500.4050, L501.5200, L500.4100 #### [facility] [address] [place], [address] Albumin/Globulin [Mass ratio] 1.5 {ratio} Normal 0.9-2.4 [facility] Comment on above: Order Comment: Order Date: 10/28/24 Order Info: 785- - CMP Order Info: [id number] - LIPID Order Info: [id number] - MG Performed By: #### L 100.0100, L500.4050, L501.5200, L500.4100 #### [facility] [address] [place], [address] ALK PHOS 60 U/L Normal 35-104 [facility] Comment on above: Order Comment: Order Date: 10/28/24 Order Info: 785- - CMP Order Info: [id number] - LIPID Order Info: [id number] - MG Performed By: #### L 100.0100, L500.4050, L501.5200, L500.4100 #### [facility] [address] [place], [address] ALT [Catalytic activity/Vol] 21 U/L Normal <=34 [facility] Comment on above: Order Comment: Order Date: 10/28/24 Order Info: [id number] - CMP Order Info: [id number] - LIPID Order Info: [id number] - MG Performed By: #### L 100.0100, L500.4050, L501.5200, L500.4100 #### [facility] [address] [place], [address] AST [Catalytic activity/Vol] 22 U/L Normal <=31 [facility] Comment on above: Order Comment: Order Date: 10/28/24 Order Info: 1 - CMP Order Info: [id number] - LIPID Order Info: [id number] - MG Performed By: #### L 100.0100, L500.4050, L501.5200, L500.4100 #### [facility] [address] [place], [address] Bilirubin [Mass/Vol] 0.43 mg/dL Normal 0.00-1.30 [facility] Comment on above: Order Comment: Order Date: 10/28/24 Order Info: [id number] - CMP Order Info: [id number] - LIPID Order Info: [id number] - MG Performed By: #### L 100.0100, L500.4050, L501.5200, L500.4100 #### [facility] [address] [place], [address] BUN/CRE 14.4 RATIO Normal 10-20 [facility] Comment on above: Order Comment: Order Date: 10/28/24 Order Info: [id number] - CMP Order Info: - LIPID Order Info: [id number] - MG Performed By: #### L 100.0100, L500.4050, L501.5200, L500.4100 #### [facility] [address] [place], [address] Calcium [Mass/Vol] 9.3 mg/dL Normal 7.6-11.0 [facility] Comment on above: Order Comment: Order Date: 10/28/24 Order Info: [id number] - CMP Order Info: [id number] - LIPID Order Info: [id number] - MG Performed By: #### L 100.0100, L500.4050, L501.5200, L500.4100 #### [facility] [address] [place], [address] Chloride [Moles/Vol] 109 mmol/L High 98-108 [facility] Comment on above: Order Comment: Order Date: 10/28/24 Order Info: [id number] - CMP Order Info: [id number] - LIPID Order Info: [id number] - MG Performed By: #### L 100.0100, L500.4050, L501.5200, L500.4100 #### [facility] [address] [place], [address] CO2 [Moles/Vol] 22.9 mmol/L Normal 21.0-32.0 [facility] Comment on above: Order Comment: Order Date: 10/28/24 Order Info: 07- - CMP Order Info: [id number] - LIPID Order Info: [id number] - MG Performed By: #### L 100.0100, L500.4050, L501.5200, L500.4100 #### [facility] [address] [place], [address] Creatinine [Mass/Vol] 0.73 mg/dL Normal 0.70-1.20 [facility] [facility] Comment on above: Order Comment: Order Date: 10/28/24 Order Info: [id number] - CMP Order Info: [id number] - LIPID Order Info: [id number] - MG Performed By: #### L 100.0100, L500.4050, L501.5200, L500.4100 #### [facility] [address] [place], [place], [address] GAP 12 Normal 5-15 [facility] Comment on above: Order Comment: Order Date: 10/28/24 Order Info: [id number] - CMP Order Info: [id number] - LIPID Order Info: [id number] - MG Performed By: #### L 100.0100, L500.4050, L501.5200, L500.4100 #### [facility] [address] [place], [place], [address] GFR/1.73 sq M.predicted among non-blacks MDRD (S/P/Bld) [Vol rate/Area] 85 mL/min/{1.73_m2} Normal >60 [facility] Comment on above: Order Comment: Order Date: 10/28/24 Order Info: [id number]- - CMP Order Info: [id number] - LIPID Order Info: [id number] - MG Result Comment: mL/m in/1.73m2 CKD-EPI Creatinine Equation (2020) Performed By: #### L 100.0100, L500.4050, L501.5200, L500.4100 #### [facility] [address] [place], [address] Globulin (S) [Mass/Vol] 2.9 g/dL Normal 2.2-4.2 [facility] Comment on above: Order Comment: Order Date: 10/28/24 Order Info: [id number]- - CMP Order Info: [id number] - LIPID Order Info: [id number] - MG Performed By: #### L 100.0100, L500.4050, L501.5200, L500.4100 #### [facility] [address] [place], [address] Glucose [Mass/Vol] 95 mg/dL Normal 70-99 [facility] Comment on above: Order Comment: Order Date: 10/28/24 Order Info: [id number] - CMP Order Info: [id number] - LIPID Order Info: [id number] - MG Performed By: #### L 100.0100, L500.4050, L501.5200, L500.4100 #### [facility] [address] [place], [address] Potassium [Moles/Vol] 3.9 mmol/L Normal 3.3-5.1 [facility] Comment on above: Order Comment: Order Date: 10/28/24 Order Info: [id number] - CMP Order Info: [id number] - LIPID Order Info: [id number] - MG Performed By: #### L 100.0100, L500.4050, L501.5200, L500.4100 #### [facility] [address] [place], [address] Sodium [Moles/Vol] 143 mmol/L Normal 133-145 [facility] Comment on above: Order Comment: Order Date: 10/28/24 Order Info: [id number] - CMP Order Info: [id number] - LIPID Order Info: [id number] - MG Performed By: #### L 100.0100, L500.4050, L501.5200, L500.4100 #### [facility] [address] [place], [address] T PROT 7.2 g/dL Normal 5.9-8.4 [facility] Comment on above: Order Comment: Order Date: 10/28/24 Order Info: [id number] - CMP Order Info: [id number] - LIPID Order Info: [id number] - MG Performed By: #### L 100.0100, L500.4050, L501.5200, L500.4100 #### [facility] [address] [place], [address] Urea nitrogen [Mass/Vol] 11 mg/dL Normal 4-19 [facility] Comment on above: Order Comment: Order Date: 10/28/24 Order Info: [id number] - CMP Order Info: [id number] - LIPID Order Info: [id number] - MG Performed By: #### L 100.0100, L500.4050, L501.5200, L500.4100 #### [facility] [address] [place], [address] Eosinophil percentageOrdered By: Clyde Linda on 10-28-2024 Eosinophils/100 WBC (Bld) 1.9 % 0-5 [facility] Erythrocyte distribution wid th ratioOrdered By: Clyde Linda on 10-28-2024 Erythrocyte distribution width (RBC) [Ratio] 14.2 % 11.6-14.6 [facility] Erythrocyte distribution wid th standard deviationOrdered By: Clyde Linda on 10-28-2024 Erythrocyte distribution width (RBC) [Ratio] 45.8 fl High 35.1-43.9 [facility] Glomerular filtration rate ( GFR) estimation/1.73 sq m using serum, plasma, or whole bOrdered By: Clyde Linda on 10-28-2024 GFR/1.73 sq M.predicted among non-blacks MDRD (S/P/Bld) [Vol rate/Area] 85 mL/min/{1.73_m2} >60 [facility] Comment on above: mL/min/1.73m2 CKD-EP I Creatinine Equation (2020) Hematocrit Auto (Bld) [Volum e fraction]Ordered By: Clyde Linda on 10-28-2024 Hematocrit (Bld) [Volume fraction] 39.7 % 37-47 [facility] Hemoglobin measurementOrdere d By: Clyde Linda on 10-28-2024 Hemoglobin (Bld) [Mass/Vol] 12.9 g/dL 12.0-15.0 [facility] Immature granulocytes/100 WB C Auto (Bld)Ordered By: Clyde Linda on 10-28-2024 Immature granulocytes/100 WBC (Bld) 0.100 % 0.0-0.9 [facility] Comment on above: IG% - Immature Granu locytes (promyelocytes, myelocytes and metamyelocytes) > 1% indicates that a LEFT SHIFT is Present. LDL calc ser/plasOrdered By: Clyde Linda on 10-28-2024 Cholesterol in LDL [Mass/Vol] 83 mg/dL [facility] Comment on above: Bdofaehkgw=219-102 m g/dL & Higher Bmhr=853 mg/dL or greater Laboratory - Chemistry and C hemistry - challengeOrdered By: Clyde Linda on 10-28-2024 AST [Catalytic activity/Vol] 22 U/L <32 [facility] Lipid Profileon 10-28-2024 CHOL:HDL 3.58 Normal [facility] Comment on above: Order Comment: Order Date: 10/28/24 Order Info: [id number] - CMP Order Info: [id number] - LIPID Order Info: [id number] - MG Performed By: #### L 100.0100, L500.4050, L501.5200, L500.4100 #### [facility] [address] [facility] [address] [place], [address] Cholesterol [Mass/Vol] 163 mg/dL Normal <=200 [facility] Comment on above: Order Comment: Order Date: 10/28/24 Order Info: [id number] - CMP Order Info: [id number] - LIPID Order Info: [id number] - MG Result Comment: Chol esterol level, Desirable <200 mg/dL Borderline high cholesterol 200-239 mg/dL High cholesterol >=240 mg/dL Recommendations of the NCEP Adult Treatment Panel for the following risk-cutoff thresholds for the [place] population. Performed By: #### L 100.0100, L500.4050, L501.5200, L500.4100 #### [facility] [address] [place], [address] Cholesterol in HDL [Mass/Vol] 46 mg/dL Normal [facility] Comment on above: Order Comment: Order Date: 10/28/24 Order Info: [id number] - CMP Order Info: [id number] - LIPID Order Info: [id number] - MG Result Comment: Patricia onal Cholesterol Education Program (NCEP) guidelines: <40 mg/dL: Low HDL-cholesterol (major risk factor for CHD) >= 60 mg/dL: High HDL-cholesterol (negative risk factor for CHD) HDL-cholesterol is affected by a number of factors, e.g. smoking, exercise, hormones, sex and age. Performed By: #### L 100.0100, L500.4050, L501.5200, L500.4100 #### [facility] [address] [place], [address] Cholesterol in LDL [Mass/Vol] 83 mg/dL Normal [facility] Comment on above: Order Comment: Order Date: 10/28/24 Order Info: [id number] - CMP Order Info: [id number] - LIPID Order Info: [id number] - MG Result Comment: Bord geizpg=354-563 mg/dL Higher Wrwn=599 mg/dL or greater Performed By: #### L 100.0100, L500.4050, L501.5200, L500.4100 #### [facility] [address] [place], [address] Cholesterol in VLDL [Mass/Vol] 34 mg/dL Normal 5-40 [facility] Comment on above: Order Comment: Order Date: 10/28/24 Order Info: [id number] - CMP Order Info: [id number] - LIPID Order Info: [id number] - MG Performed By: #### L 100.0100, L500.4050, L501.5200, L500.4100 #### [facility] [address] [place], [address] Triglyceride [Mass/Vol] 172 mg/dL Normal [facility] Comment on above: Order Comment: Order Date: 10/28/24 Order Info: [id number] - CMP Order Info: [id number] - LIPID Order Info: [id number] - MG Result Comment: The drugs N-Acetylcysteine and Metamizole may falsely depress this assay. Normal range: <150 mg/dL Borderline High: 150-199 mg/dL High: 200-499 mg/dL Very High: >500 mg/dL Performed By: #### L 100.0100, L500.4050, L501.5200, L500.4100 #### [facility] [address] [place], [place], [address] MCV (mean corpuscular volume ) determinationOrdered By: Clyde Linda on 10-28-2024 MCV (RBC) [Entitic vol] 89.4 fL 81-99 [facility] Magnesiumon 10-28-2024 Magnesium [Mass/Vol] 2.2 mg/dL Normal 1.5-2.2 [facility] Comment on above: Order Comment: Order Date: 10/28/24 Order Info: [id number] - CMP Order Info: [id number] - LIPID Order Info: [id number] - MG Performed By: #### L 100.0100, L500.4050, L501.5200, L500.4100 #### [facility] [address] [place], [place], [address] Magnesium measurement (mass/ volume)Ordered By: Clyde Linda on 10-28-2024 Magnesium (Unsp spec) [Mass/Vol] 2.2 mg/dL 1.5-2.2 [facility] Mean corpuscular hemoglobin (MCH) determinationOrdered By: Clyde Linda on 10-28-2024 MCH (RBC) [Entitic mass] 29.1 pg 27.0-32.0 [facility] Mean corpuscular hemoglobin concentration (MCHC) determinationOrdered By: Clyde Linda on 10-28-2024 MCHC (RBC) [Mass/Vol] 32.5 g/dL 32-36 [facility] Mean platelet volume determi nationOrdered By: Clyde Linda on 10-28-2024 Platelet mean volume (Bld) [Entitic vol] 11.5 fL 6.2-12.0 [facility] Monocyte percentageOrdered B y: Clyde Linda on 10-28-2024 Monocytes/100 WBC (Bld) 6.8 % 0-10 [facility] Neutrophil percentageOrdered By: Clyde Linda on 10-28-2024 Neutrophils/100 WBC (Bld) 57.5 % 47-70 [facility] Nucleated red blood cell per centageOrdered By: Clyde Linda on 10-28-2024 Nucleated RBC/100 WBC (Bld) [Ratio] 0 % 0-5 [facility] Platelet countOrdered By: Key Linda on 10-28-2024 Platelets (Bld) [#/Vol] 278 10*3/uL 150-450 [facility] Potassium measurement (mass/ volume)Ordered By: Clyde Linda on 10-28-2024 Potassium (Unsp spec) [Mass/Vol] 3.9 mmol/L 3.3-5.1 [facility] RBC Auto (Bld) [#/Vol]Ordere d By: Clyde Linda on 10-28-2024 RBC (Bld) [#/Vol] 4.44 10*6/uL 4.2-5.4 [facility] Screening total cholesterol/ high density lipoprotein (HDL) cholesterol ratioOrdered By: Clyde Linda on 10-28-2024 Cholesterol.total/Choles terol in HDL [Mass ratio] 3.58 {ratio} [facility] Serum creatinine measurement (mass/volume)Ordered By: Clyde Linda on 10-28-2024 Creatinine [Mass/Vol] 0.73 mg/dL 0.70-1.20 [facility] Serum globulin measurementOr dered By: Clyde Linda on 10-28-2024 Globulin (S) [Mass/Vol] 2.9 g/dL 2.2-4.2 [facility] Serum glucose measurement (m ass/volume)Ordered By: Clyde Linda on 10-28-2024 Glucose [Mass/Vol] 95 mg/dL 70-99 [facility] Serum or plasma alanine bennett otransferase (ALT) measurementOrdered By: Clyde Linda on 10-28-2024 ALT [Catalytic activity/Vol] 21 U/L <35 [facility] Serum or plasma albumin ralph urement (mass/volume)Ordered By: Clyde Linda on 10-28-2024 Albumin [Mass/Vol] 4.3 g/dL 3.4-4.8 [facility] Serum or plasma albumin/glob ulin mass ratioOrdered By: Clyde Linda on 10-28-2024 Albumin/Globulin [Mass ratio] 1.5 {ratio} 0.9-2.4 [facility] Serum or plasma alkaline gavi sphatase measurementOrdered By: Clyde Linda on 10-28-2024 ALP [Catalytic activity/Vol] 60 U/L 35-104 [facility] Serum or plasma calcium ralph urement (mass/volume)Ordered By: Clyde Linda on 10-28-2024 Calcium [Mass/Vol] 9.3 mg/dL 7.6-11.0 [facility] Serum or plasma cholesterol in HDL measurement (mass/volume)Ordered By: Clyde Linda on 10-28-2024 Cholesterol in HDL [Mass/Vol] 46 mg/dL >40 [facility] Comment on above: National Cholesterol Education Program (NCEP) guidelines:<40 mg/dL: Low HDL-cholesterol (major risk factor for CHD)>= 60 mg/dL: High HDL-cholesterol (negative risk factor for CHD)HDL-cholesterol is affected by a number of factors, e.g. smoking, exercise, hormones, sex and age. Serum or plasma cholesterol measurement (mass/volume)Ordered By: Clyde Linda on 10-28-2024 Cholesterol [Mass/Vol] 163 mg/dL <201 [facility] Comment on above: Cholesterol level, D esirable <200 mg/dLBorderline high cholesterol 200-239 mg/dLHigh cholesterol >=240 mg/dLRecommendations of the NCEP Adult Treatment Panel for the following risk-cutoff thresholds for the [place] population. Serum or plasma urea nitroge n measurement (mass/volume)Ordered By: Clyde Linda on 10-28-2024 Urea nitrogen [Mass/Vol] 11 mg/dL 4-19 [facility] Sodium levelOrdered By: Clyde Linda on 10-28-2024 Sodium [Moles/Vol] 143 mmol/L 133-145 [facility] Total proteinOrdered By: Anthony Linda on 10-28-2024 Protein [Mass/Vol] 7.2 g/dL 5.9-8.4 [facility] Triglycerides measurementOrd ered By: Clyde Linda on 10-28-2024 Triglyceride [Mass/Vol] 172 mg/dL <199 [facility] Comment on above: The drugs N-Acetylcy steine and Metamizole may falsely depress this assay. Normal range: <150 mg/dLBorderline High: 150-199 mg/dLHigh: 200-499 mg/dLVery High: >500 mg/dL Vitamin D,25 Hydroxyon 10-28 Vitamin D 25-OH 37.4 ng/mL Normal 30-100 [facility] Comment on above: Order Comment: Order Date: 10/28/24Order Info: [id number] - CMPOrder Info: [id number] - LIPIDOrder Info: [id number] - MG Result Comment: Bruna min D Status Deficiency: <20 ng/mL (50nmol/L) Insufficiency: 20-30 ng/mL (50-75 nmol/L) Sufficiency: 30-100 ng/mL (75-250 nmol/L) Toxicity: >100 ng/mL (>250 nmol/L) Performed By: #### L 506.1001 ####[facility] [address] [place], [place], [address] White blood cell (WBC) count Ordered By: Clyde Linda on 10-28-2024 WBC (Bld) [#/Vol] 6.8 10*3/uL 4.4-11.0 [facility] Abdomen Single Viewon 2024 Abdomen Single View [facility] Imaging Services [address] [place], [place] [id number] Abdomen Single View MR#: [id number] Acct: [id number] Name: SUELLEN LONG Rep #: [id number] : 1950 F 73 From: Karyn alonso MD PCP: Dr. 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: REG CLI Study: Abdomen Single View Date of Exam: 09/30/24 Exam# [id number] Ordering Dr: Yanira Barahona MD PROCEDURE: ABDOMEN [...] residue in the large bowels. Reading Location: [place] [address] CC: Dr. Yanira Barahona MD; Dr. Clyde Linda MD Manager Front: Signed Normal [facility] Abdomen/Pelvis without Conto n 09-18-2024 Abdomen/Pelvis without Cont [facility] Imaging Services [address] [place] [address] Abdomen/Pelvis without Cont MR#: [id number] Acct: [id number] Name: SUELLEN LONG Rep #: [id number] : 1950 F 73 From: Pk Dominguez PCP: Dr. 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: REG CLI Study: Abdomen/Pelvis without Cont Date of Exam: 08/22 Exam# [id number] Ordering Dr: Yanira Barahona MD PROCEDURE: ABDOMEN/PELVIS [...] lymph nodes may reflect panniculitis. Reading Location: [id number] CC: Dr. Yanira Barahona MD; Dr. Clyde Linda MD Manager Front: Signed Normal [facility] Kidney and Bladderon 025 Kidney and Bladder [facility] Imaging Services [address] [place], [place] [address] Kidney and Bladder MR#: [id number] Acct: [id number] Name: SUELLEN LONG Rep #: [id number] : 1950 F 73 From: Doroteo sousa MD PCP: Dr. 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: REG CLI Study: Kidney and Bladder Date of Exam: 09/01/24 Exam# [id number] Ordering Dr: Yanira Barahona MD PROCEDURE: KIDNEY [...] mm nonobstructive left intrarenal calculus. Reading Location: [id number] CC: Dr. Yanira Barahona MD; Dr. Clyde Linda MD Manager Front: Signed Normal [facility] Urine Cultureon 08-01-2024 [facility] PLEASE ADD CULTURE TO URINE SPECIMEN COLLECTED 07/29/24 PER Escherichia coli Chicken Count >100,000 Escherichia coli: REACTION Ampicillin Islt [...] TMP SMX Islt TIMOTHY <=20 S Normal [facility] Comment on above: Performed By: #### L 500.4100, L506.1001, L100.0100, L400.0001, M100.2200 ####[facility] [address] [place], [place], [address] Urine cultureOrdered By: Anthony Linda on 07-30-2024 Bacteria identified Cx Nom (U) Escherichia coli Abnormal [facility] Absolute lymphocyte countOrd ered By: Clyde Linda on 07-29-2024 Lymphocytes Auto (Unsp spec) [#/Vol] 2.10 10*3/uL 0.83-4.51 [facility] Absolute neutrophil countOrd ered By: Clyde Linda on 07-29-2024 Neutrophils (Bld) [#/Vol] 4.4 10*3/uL 2.0-7.7 [facility] Automated lymphocyte count a s percentage of total leukocytesOrdered By: Clyde Linda on 07-29-2024 Lymphocytes/100 WBC Auto (Unsp spec) 29.3 % 19-41 [facility] Basophil percentageOrdered B y: Clyde Linda on 07-29-2024 Basophils/100 WBC (Bld) 1.1 % High 0-1 [facility] Bilirubin Test strip Ql (U)O rdered By: Clyde Linda on 07-29-2024 Bilirubin Ql (U) Negative Negative [facility] CBC W/Diff, Automatedon 04-0 Absolute Lymph 2.10 X10 3/uL Normal 0.83-4.51 [facility] Comment on above: Performed By: #### L 500.4100, L506.1001, L100.0100, L400.0001, M100.2200 ####[facility] [address] [place], [place], [id number] Absolute Neut 4.4 X10 3/uL Normal 2.0-7.7 [facility] Comment on above: Performed By: #### L 500.4100, L506.1001, L100.0100, L400.0001, M100.2200 ####[facility] [address] [place], [address] Basophils/100 WBC (Bld) 1.1 % High 0-1 [facility] Comment on above: Performed By: #### L 500.4100, L506.1001, L100.0100, L400.0001, M100.2200 ####[facility] [address] [place], [address] Eosinophils/100 WBC (Bld) 2.1 % Normal 0-5 [facility] Comment on above: Performed By: #### L 500.4100, L506.1001, L100.0100, L400.0001, M100.2200 ####[facility] [address] [place], [address] Erythrocyte distribution width (RBC) [Ratio] 14.0 % Normal 11.6-14.6 [facility] Comment on above: Performed By: #### L 500.4100, L506.1001, L100.0100, L400.0001, M100.2200 ####[facility] [address] [place], [address] Hematocrit (Bld) [Volume fraction] 39.7 % Normal 37-47 [facility] Comment on above: Performed By: #### L 500.4100, L506.1001, L100.0100, L400.0001, M100.2200 ####[facility] [address] [place], [address] Hemoglobin (Bld) [Mass/Vol] 13.0 g/dL Normal 12.0-15.0 [facility] Comment on above: Performed By: #### L 500.4100, L506.1001, L100.0100, L400.0001, M100.2200 ####[facility] [address] [place], [address] IG% 0.100 Normal 0.0-0.9 [facility] Comment on above: Result Comment: IG% - Immature Granulocytes (promyelocytes, myelocytes and metamyelocytes) > 1% indicates that a LEFT SHIFT is Present. Performed By: #### L 500.4100, L506.1001, L100.0100, L400.0001, M100.2200 ####[facility] [address] [place], [address] Lymphocytes/100 WBC (Bld) 29.3 % Normal 19-41 [facility] Comment on above: Performed By: #### L 500.4100, L506.1001, L100.0100, L400.0001, M100.2200 ####[facility] [address] [place], [address] MCH (RBC) [Entitic mass] 29.7 pg Normal 27.0-32.0 [facility] Comment on above: Performed By: #### L 500.4100, L506.1001, L100.0100, L400.0001, M100.2200 ####[facility] [address] [place], [address] MCHC (RBC) [Mass/Vol] 32.7 g/dL Normal 32-36 [facility] Comment on above: Performed By: #### L 500.4100, L506.1001, L100.0100, L400.0001, M100.2200 ####[facility] [address] [place], [address] MCV (RBC) [Entitic vol] 90.8 fL Normal 81-99 [facility] Comment on above: Performed By: #### L 500.4100, L506.1001, L100.0100, L400.0001, M100.2200 ####[facility] [address] [place], [address] Monocytes/100 WBC (Bld) 6.0 % Normal 0-10 [facility] Comment on above: Performed By: #### L 500.4100, L506.1001, L100.0100, L400.0001, M100.2200 ####[facility] [address] [place], [address] Neutrophils/100 WBC (Bld) 61.4 % Normal 47-70 [facility] Comment on above: Performed By: #### L 500.4100, L506.1001, L100.0100, L400.0001, M100.2200 ####[facility] [address] [place], [address] Nucleated RBC (Bld) [#/Vol] 0 10*3/uL Normal 0-5 [facility] Comment on above: Performed By: #### L 500.4100, L506.1001, L100.0100, L400.0001, M100.2200 ####[facility] [address] [place], [address] Platelet mean volume (Bld) [Entitic vol] 11.0 fL Normal 6.2-12.0 [facility] Comment on above: Performed By: #### L 500.4100, L506.1001, L100.0100, L400.0001, M100.2200 ####[facility] [address] [place], [address] Platelets (Bld) [#/Vol] 302 10*3/uL Normal 150-450 [facility] Comment on above: Performed By: #### L 500.4100, L506.1001, L100.0100, L400.0001, M100.2200 ####[facility] [address] [place], [address] RBC (Bld) [#/Vol] 4.37 10*6/uL Normal 4.2-5.4 [facility] Comment on above: Performed By: #### L 500.4100, L506.1001, L100.0100, L400.0001, M100.2200 ####[facility] [address] [place], [address] RDW SD 47.1 fl High 35.1-43.9 [facility] Comment on above: Performed By: #### L 500.4100, L506.1001, L100.0100, L400.0001, M100.2200 ####[facility] [address] [place], [address] WBC (Bld) [#/Vol] 7.2 10*3/uL Normal 4.4-11.0 [facility] Comment on above: Performed By: #### L 500.4100, L506.1001, L100.0100, L400.0001, M100.2200 ####[facility] [address] [place], [address] Calculated very low density lipoprotein (VLDL) cholesterol measurementOrdered By: Clyde Linda on 07-29-2024 Calculated very low density lipoprotein (VLDL) cholesterol measurement 18 mg/dL 5-40 [facility] VLDL Cholesterol 18 mg/dL 5-40 [facility] Eosinophil percentageOrdered By: Clyde Linda on 07-29-2024 Eosinophils/100 WBC (Bld) 2.1 % 0-5 [facility] Epithelial cells.squamous LM Ql (Urine sed)Ordered By: Clyde Linda on 07-29-2024 Epithelial cells.squamous LM.HPF (Urine sed) [#/Area] 5 /[HPF] 5-10 [facility] Erythrocyte distribution wid th (RBC) [Ratio]Ordered By: Clyde Linda on 07-29-2024 Erythrocyte distribution width (RBC) [Entitic vol] 47.1 fL High 35.1-43.9 [facility] Erythrocyte distribution wid th ratioOrdered By: Clyde Linda on 07-29-2024 Erythrocyte distribution width (RBC) [Ratio] 14.0 % 11.6-14.6 [facility] Erythrocyte distribution wid th standard deviationOrdered By: Clyde Linda on 07-29-2024 Erythrocyte distribution width (RBC) [Ratio] 47.1 fl High 35.1-43.9 [facility] Glucose Ql (U)Ordered By: Key Linda on 07-29-2024 Urine Glucose (UA) Normal mg/dl Normal [facility] Hematocrit Auto (Bld) [Volum e fraction]Ordered By: Clyde Linda on 07-29-2024 Hematocrit (Bld) [Volume fraction] 39.7 % 37-47 [facility] Hemoglobin measurementOrdere d By: Clyde Linda on 07-29-2024 Hemoglobin (Bld) [Mass/Vol] 13.0 g/dL 12.0-15.0 [facility] Immature granulocytes/100 WB C Auto (Bld)Ordered By: Clyde Linda on 07-29-2024 Immature granulocytes/100 WBC (Bld) 0.100 % 0.0-0.9 [facility] Comment on above: IG% - Immature Granu locytes (promyelocytes, myelocytes and metamyelocytes) > 1% indicates that a LEFT SHIFT is Present. Ketones Test strip Ql (U)Ord ered By: Clyde Linda on 07-29-2024 Ketones Ql (U) Negative Negative [facility] LDL calc ser/plasOrdered By: Clyde Linda on 07-29-2024 Cholesterol in LDL [Mass/Vol] 87 mg/dL [facility] Comment on above: Zavbhsebue=074-561 m g/dL & Higher Ehhf=421 mg/dL or greater LDL Cholesterol, Calculated 87 mg/dL [facility] Comment on above: Nyatwilzyz=299-763 m g/dL & Higher Mmet=000 mg/dL or greater Lipid Profileon 07-29-2024 CHOL:HDL 2.79 Normal [facility] Comment on above: Performed By: #### L 500.4100, L506.1001, L100.0100, L400.0001, M100.2200 ####[facility] [address] [place], [address] Cholesterol [Mass/Vol] 164 mg/dL Normal <=200 [facility] Comment on above: Result Comment: Chol esterol level, Desirable <200 mg/dL Borderline high cholesterol 200-239 mg/dL High cholesterol >=240 mg/dL Recommendations of the NCEP Adult Treatment Panel for the following risk-cutoff thresholds for the [place] population. Performed By: #### L 500.4100, L506.1001, L100.0100, L400.0001, M100.2200 ####[facility] [address] [place], [address] Cholesterol in HDL [Mass/Vol] 59 mg/dL Normal [facility] Comment on above: Result Comment: Patricia onal Cholesterol Education Program (NCEP) guidelines: <40 mg/dL: Low HDL-cholesterol (major risk factor for CHD) >= 60 mg/dL: High HDL-cholesterol (negative risk factor for CHD) HDL-cholesterol is affected by a number of factors, e.g. smoking, exercise, hormones, sex and age. Performed By: #### L 500.4100, L506.1001, L100.0100, L400.0001, M100.2200 ####[facility] [address] [place], [address] Cholesterol in LDL [Mass/Vol] 87 mg/dL Normal [facility] Comment on above: Result Comment: Bord paycse=663-364 mg/dL Higher Qifb=719 mg/dL or greater Performed By: #### L 500.4100, L506.1001, L100.0100, L400.0001, M100.2200 ####[facility] [address] [place], [address] Cholesterol in VLDL [Mass/Vol] 18 mg/dL Normal 5-40 [facility] Comment on above: Performed By: #### L 500.4100, L506.1001, L100.0100, L400.0001, M100.2200 ####[facility] [address] [place], [address] Triglyceride [Mass/Vol] 91 mg/dL Normal [facility] Comment on above: Result Comment: The drugs N-Acetylcysteine and Metamizole may falsely depress this assay. Normal range: <150 mg/dL Borderline High: 150-199 mg/dL High: 200-499 mg/dL Very High: >500 mg/dL Performed By: #### L 500.4100, L506.1001, L100.0100, L400.0001, M100.2200 ####[facility] [address] [place], [address] Lymphocytes Auto (Unsp spec) [#/Vol]Ordered By: Clyde Linda on 07-29-2024 Lymphocytes (Bld) [#/Vol] 2.10 10*3/uL 0.83-4.51 [facility] Lymphocytes/100 WBC Auto (Un sp spec)Ordered By: Clyde Linda on 07-29-2024 Lymphocytes/100 WBC (Bld) 29.3 % 19-41 [facility] MCV (mean corpuscular volume ) determinationOrdered By: Clyde Linda on 07-29-2024 MCV (RBC) [Entitic vol] 90.8 fL 81-99 [facility] Mean corpuscular hemoglobin (MCH) determinationOrdered By: Clyde Linda on 07-29-2024 MCH (RBC) [Entitic mass] 29.7 pg 27.0-32.0 [facility] Mean corpuscular hemoglobin concentration (MCHC) determinationOrdered By: Clyde Linda on 07-29-2024 MCHC (RBC) [Mass/Vol] 32.7 g/dL 32-36 [facility] Mean platelet volume determi nationOrdered By: Clyde Linda on 07-29-2024 Platelet mean volume (Bld) [Entitic vol] 11.0 fL 6.2-12.0 [facility] Microscopic analysis of urin e for red blood cells (RBC)Ordered By: Clyde Linda on 07-29-2024 Microscopic analysis of urine for red blood cells (RBC) 25-50 SEEN /hpf 0-5 [facility] Urine RBC 25-50 SEEN /hpf 0-5 [facility] Monocyte percentageOrdered B y: Clyde Linda on 07-29-2024 Monocytes/100 WBC (Bld) 6.0 % 0-10 [facility] Mucus LM Ql (Urine sed)Order ed By: Clyde Linda on 07-29-2024 Mucus Ql (Urine sed) 0 SEEN /hpf [facility] Neutrophil percentageOrdered By: Clyde Linda on 07-29-2024 Neutrophils/100 WBC (Bld) 61.4 % 47-70 [facility] Nitrite Test strip Ql (U)Ord ered By: Clyde Linda on 07-29-2024 Nitrite Ql (U) Positive High Negative [facility] Nucleated red blood cell per centageOrdered By: Clyde Linda on 07-29-2024 Nucleated RBC/100 WBC (Bld) [Ratio] 0 % 0-5 [facility] Platelet countOrdered By: Key Linda on 07-29-2024 Platelets (Bld) [#/Vol] 302 10*3/uL 150-450 [facility] Protein Test strip Ql (U)Ord ered By: Clyde Linda on 07-29-2024 Protein Ql (U) 30 mg/dl High Negative [facility] RBC Auto (Bld) [#/Vol]Ordere d By: Clyde Linda on 07-29-2024 RBC (Bld) [#/Vol] 4.37 10*6/uL 4.2-5.4 [facility] Screening total cholesterol/ high density lipoprotein (HDL) cholesterol ratioOrdered By: Clyde Linda on 07-29-2024 Cholesterol.total/Choles terol in HDL [Mass ratio] 2.79 {ratio} [facility] Serum or plasma cholesterol in HDL measurement (mass/volume)Ordered By: Clyde Linda on 07-29-2024 Cholesterol in HDL [Mass/Vol] 59 mg/dL >40 [facility] Comment on above: National Cholesterol Education Program (NCEP) guidelines:<40 mg/dL: Low HDL-cholesterol (major risk factor for CHD)>= 60 mg/dL: High HDL-cholesterol (negative risk factor for CHD)HDL-cholesterol is affected by a number of factors, e.g. smoking, exercise, hormones, sex and age. Serum or plasma cholesterol measurement (mass/volume)Ordered By: Clyde Linda on 07-29-2024 Cholesterol [Mass/Vol] 164 mg/dL <201 [facility] Comment on above: Cholesterol level, D esirable <200 mg/dLBorderline high cholesterol 200-239 mg/dLHigh cholesterol >=240 mg/dLRecommendations of the NCEP Adult Treatment Panel for the following risk-cutoff thresholds for the [place] population. Squamous epithelial cells de tection in urine sediment by light microscopyOrdered By: Clyde Linda on 07-29-2024 Epithelial cells.squamous LM Ql (Urine sed) 5-10 SEEN /hpf 5-10 [facility] Triglycerides measurementOrd ered By: Clyde Linda on 07-29-2024 Triglyceride [Mass/Vol] 91 mg/dL <199 [facility] Comment on above: The drugs N-Acetylcy steine and Metamizole may falsely depress this assay. Normal range: <150 mg/dLBorderline High: 150-199 mg/dLHigh: 200-499 mg/dLVery High: >500 mg/dL Urinalysis, Completeon 07-29 BACTERIA 4+ /hpf Normal None Seen [facility] Comment on above: Order Comment: Urine , Random Performed By: #### L 500.4100, L506.1001, L100.0100, L400.0001, M100.2200 ####[facility] [address] [place], [address] EPI,SQUAMOUS 5-10 SEEN Normal 5-10 [facility] Comment on above: Order Comment: Urine , Random Performed By: #### L 500.4100, L506.1001, L100.0100, L400.0001, M100.2200 ####[facility] [address] [place], [address] RBC 25-50 SEEN Normal 0-5 [facility] Comment on above: Order Comment: Urine , Random Performed By: #### L 500.4100, L506.1001, L100.0100, L400.0001, M100.2200 ####[facility] [address] [place], [address] WBC 50-100 SEEN Normal 0-5 [facility] Comment on above: Order Comment: Urine , Random Performed By: #### L 500.4100, L506.1001, L100.0100, L400.0001, M100.2200 ####[facility] [address] [place], [address] Mucus Ql (Urine sed) 0 SEEN Normal [facility] Comment on above: Order Comment: Urine , Random Performed By: #### L 500.4100, L506.1001, L100.0100, L400.0001, M100.2200 ####[facility] [address] [place], [address] Urine blood detectionOrdered By: Clyde Linda on 07-29-2024 Urine Occult Blood 250 /ul High Negative [facility] Urine clarityOrdered By: Anthony Linda on 07-29-2024 Clarity (U) Sl. Cloudy Clear [facility] Urine color determinationOrd ered By: Clyde Linda on 07-29-2024 Color (U) Yellow Yellow [facility] Urine glucose detectionOrder ed By: Clyde Linda on 07-29-2024 Glucose Ql (U) Normal mg/dl Normal [facility] Urine leukocyte esterase det ection by dipstickOrdered By: Clyde Linda on 07-29-2024 Leukocyte esterase Test strip Ql (U) 100 /ul High Negative [facility] Urine pHOrdered By: Clyde godwin on 07-29-2024 pH (U) 5.0 [pH] 5.0 - 8.0 [facility] Urine sediment bacteria coun t by microscopy (number/high power field)Ordered By: Clyde Linda on 07-29-2024 Bacteria LM.HPF (Urine sed) [#/Area] 4 /[HPF] None Seen [facility] Urine specific gravity measu rementOrdered By: Clyde Linda on 07-29-2024 Specific gravity (U) [Rel density] 1.025 1.002-1.030 [facility] Urine urobilinogen measureme ntOrdered By: Clyde Linda on 07-29-2024 Urobilinogen Ql (U) Normal mg/dl Normal [facility] Urobilinogen Ql (U)Ordered B y: Clyde Linda on 07-29-2024 Urine Urobilinogen Normal mg/dl Normal [facility] Vitamin D, 25-hydroxyOrdered By: Clyde Linda on 07-29-2024 Vitamin D 25-Hydroxy 27.7 ng/mL Low 30-100 [facility] Comment on above: Vitamin D StatusDefi ciency: <20 ng/mL (50nmol/L)Insufficiency: 20-30 ng/mL (50-75 nmol/L)Sufficiency: 30-100 ng/mL (75-250 nmol/L)Toxicity: >100 ng/mL (>250 nmol/L) Vitamin D,25 Hydroxyon 07-29 Vitamin D 25-OH 27.7 ng/mL Low 30-100 [facility] Comment on above: Result Comment: Bruna min D Status Deficiency: <20 ng/mL (50nmol/L) Insufficiency: 20-30 ng/mL (50-75 nmol/L) Sufficiency: 30-100 ng/mL (75-250 nmol/L) Toxicity: >100 ng/mL (>250 nmol/L) Performed By: #### L 500.4100, L506.1001, L100.0100, L400.0001, M100.2200 ####[facility] [address] [facility] [place], [address] White blood cell (WBC) count Ordered By: Clyde Linda on 07-29-2024 WBC (Bld) [#/Vol] 7.2 10*3/uL 4.4-11.0 [facility] White blood cell countOrdere d By: Clyde Linda on 07-29-2024 Urine WBC 50-100 SEEN /hpf 0-5 [facility] White blood cell count 50-100 SEEN /hpf 0-5 [facility] Dexa Bone Density Studyon Dexa Bone Density Study [facility] Imaging Services [address] [place] [address] Dexa Bone Density Study MR#: [id number] Acct: [id number] Name: SUELLEN LONG Rep #: [id number] : 1950 F 73 From: Doroteo sousa MD PCP: Dr. 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: [facility] Study: Dexa Bone Density Study Date of Exam: 02/12/24 Exam# [id number] Ordering Dr: Clyde Linda MD -[id number] STUDY: DUAL ENERGY X-RAY ABSORPTIOMETRY / [...] Signed: Doroteo Diaz MD at 13:10 EDT Reading Location ID and State: [address] [place] [address] , Service support , CC: Dr. Clyde Linda MD Manager Front: Signed Normal [facility] SCRN MAMM (CAD)W/RAMIREZBlanca MAYFIELDAnju n 02-12-2024 SCRN MAMM (CAD)W/[facility] Imaging Services [address] [place], [place] [id number] SCRN MAMM (CAD)W/RAMIREZ CHAPARRO MR#: [id number] Acct: [id number] Name: SUELLEN LONG Rep #: [id number] : 1950 F 73 From: Doroteo sousa MD PCP: Dr. 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: [facility] Study: SCRN MAMM (CAD)W/RAMIREZ BILAT Date of Exam: 01/21 07/13 Exam# [id number] Ordering Dr: Clyde Linda MD -[id number] MAMMOGRAPHY - BILATERAL SCREENING REASON FOR [...] delay biopsy of a clinically suspicious abnormality. [id number] Electronically Signed: Doroteo Diaz MD at 14:20 EDT , CC: Dr. Clyde Linda MD Manager Front: Signed Normal [facility] Absolute lymphocyte countOrd ered By: Clyde Linda on 07-09-2023 Lymphocytes Auto (Unsp spec) [#/Vol] 2.14 10*3/uL 0.83-4.51 [facility] Automated lymphocyte count a s percentage of total leukocytesOrdered By: Clyde Linda on 07-09-2023 Lymphocytes/100 WBC Auto (Unsp spec) 32.9 % 19-41 [facility] Basophil percentageOrdered B y: Clyde Linda on 07-09-2023 Basophils/100 WBC (Bld) 0.9 % 0-1 [facility] Bilirubin [Mass/Vol] 0.80 mg/dL 0.20-1.00 [facility] Comment on above: For patients on eltr ombopag therapy, use of Dimension [place] TBIL is not recommended. Chloride [Moles/Vol] 106 mmol/L 98-107 [facility] Eosinophils/100 WBC (Bld) 1.5 % 0-5 [facility] Glucose [Mass/Vol] 80 mg/dL 74-106 [facility] Hemoglobin (Bld) [Mass/Vol] 13.5 g/dL 12.0-15.0 [facility] Monocytes/100 WBC (Bld) 6.2 % 0-10 [facility] Neutrophils (Bld) [#/Vol] 3.8 10*3/uL 2.0-7.7 [facility] Neutrophils/100 WBC (Bld) 58.3 % 47-70 [facility] Potassium [Moles/Vol] 3.8 mmol/L 3.5-5.1 [facility] Protein [Mass/Vol] 7.7 g/dL 6.4-8.2 [facility] Sodium [Moles/Vol] 140 mmol/L 136-145 [facility] WBC (Bld) [#/Vol] 6.5 10*3/uL 4.4-11.0 [facility] Determination of erythrocyte mean corpuscular volume (MCV)Ordered By: Clyde Linda on 07-09-2023 MCV (RBC) [Entitic vol] 90.3 fL 81-99 [facility] Erythrocyte distribution wid th ratioOrdered By: Clyde Linda on 07-09-2023 Erythrocyte distribution width (RBC) [Ratio] 13.9 % 11.6-14.6 [facility] Erythrocyte distribution wid th standard deviationOrdered By: Clyde Linda on 07-09-2023 Erythrocyte distribution width (RBC) [Entitic vol] 46.3 fL 35.1-43.9 [facility] Hematocrit Auto (Bld) [Volum e fraction]Ordered By: Clyde Linda on 07-09-2023 Hematocrit (Bld) [Volume fraction] 42.1 % 37-47 [facility] Immature granulocytes/100 WB C Auto (Bld)Ordered By: Clyde Linda on 07-09-2023 Immature granulocytes/100 WBC (Bld) 0.200 % 0.0-0.9 [facility] Comment on above: IG% - Immature Granu locytes (promyelocytes, myelocytes and metamyelocytes) > 1% indicates that a LEFT SHIFT is Present. Laboratory - Chemistry and C hemistry - challengeOrdered By: Clyde Linda on 07-09-2023 Albumin/Globulin [Mass ratio] 1.0 {ratio} 0.9-2.4 [facility] ALP [Catalytic activity/Vol] 60 U/L 45-117 [facility] ALT [Catalytic activity/Vol] 22 U/L 13-56 [facility] CO2 [Moles/Vol] 26.0 mmol/L 21.0-32.0 [facility] Globulin (S) [Mass/Vol] 3.9 g/dL 2.2-4.2 [facility] Urea nitrogen/Creatinine [Mass ratio] 21.4 mg/mg 10-20 [facility] Laboratory - Hematology and Cell countsOrdered By: Clyde Linda on 07-09-2023 MCH (RBC) [Entitic mass] 29.0 pg 27.0-32.0 [facility] MCHC (RBC) [Mass/Vol] 32.1 g/dL 32-36 [facility] Nucleated RBC/100 WBC (Bld) [Ratio] 0 % 0-5 [facility] Platelet mean volume (Bld) [Entitic vol] 11.1 fL 6.2-12.0 [facility] Platelets (Bld) [#/Vol] 283 10*3/uL 150-450 [facility] No Panel InformationOrdered By: Clyde Linda on 07-09-2023 Estimated GFR (MDRD) Amer 105 mL/min >60 [facility] Comment on above: GFR Calc Estimated GFR (MDRD) Non-Af Amer 87 mL/min >60 [facility] Comment on above: Non- GFR Calc Vitamin D 25-Hydroxy 34.8 ng/mL [facility] Comment on above: Vitamin D 25(OH) Sta tus Range Deficiency <20 ng/mL (50nmol/L) Insufficiency 20 - 30 ng/mL (50 - 75 nmol/L) Sufficiency 30 - 100 ng/mL (75 - 250 nmol/L) Toxicity >100 ng/mL (>250 nmol/L) RBC Auto (Bld) [#/Vol]Ordere d By: Clyde Linda on 07-09-2023 RBC (Bld) [#/Vol] 4.66 10*6/uL 4.2-5.4 [facility] Serum or plasma calcium ralph urement (mass/volume)Ordered By: Clyde Linda on 07-09-2023 Calcium [Mass/Vol] 9.2 mg/dL 8.5-10.1 [facility] Serum or plasma creatinine m easurement (mass/volume)Ordered By: Clyde Linda on 07-09-2023 Creatinine [Mass/Vol] 0.70 mg/dL 0.55-1.02 [facility] Comment on above: The validity of the calculated GFR & GFRAA in patients over 70 years has not been determined. Clinical correlation is essential. Serum or plasma thyroid stim ulating hormone (TSH) measurement (units/volume)Ordered By: Clyde Linda on 07-09-2023 TSH Qn 0.87 uIU/mL 0.358-3.74 [facility] Serum or plasma urea nitroge n measurement (mass/volume)Ordered By: Clyde Linda on 07-09-2023 Urea nitrogen [Mass/Vol] 15 mg/dL 7-18 [facility] Thin prep Papanicolaou smear with manual screeningOrdered By: Clyde Linda on 07-09-2023 Thin prep Papanicolaou smear with manual screening 3.8 g/dL 3.2-5.0 [facility] Thin prep Papanicolaou smear with manual screening 21 U/L 15-37 [facility] Thin prep Papanicolaou smear with manual screening 8 5-15 [facility] Absolute lymphocyte countOrd ered By: Dr. Linda on 07-03-2022 Lymphocytes Auto (Unsp spec) [#/Vol] 1.82 10*3/uL 0.83-4.51 [facility] Basophil percentageOrdered B y: Dr. Linda on 07-03-2022 Basophils/100 WBC (Bld) 1.0 % 0-1 [facility] Bilirubin [Mass/Vol] 0.50 mg/dL 0.20-1.00 [facility] Comment on above: For patients on eltr ombopag therapy, use of Dimension [place] TBIL is not recommended. Chloride [Moles/Vol] 109 mmol/L 98-107 [facility] Eosinophils/100 WBC (Bld) 1.7 % 0-5 [facility] Glucose [Mass/Vol] 83 mg/dL 74-106 [facility] Neutrophils (Bld) [#/Vol] 3.5 10*3/uL 2.0-7.7 [facility] Neutrophils/100 WBC (Bld) 59.4 % 47-70 [facility] Potassium [Moles/Vol] 4.2 mmol/L 3.5-5.1 [facility] Protein [Mass/Vol] 7.8 g/dL 6.4-8.2 [facility] Sodium [Moles/Vol] 141 mmol/L 136-145 [facility] WBC (Bld) [#/Vol] 5.9 10*3/uL 4.4-11.0 [facility] Blood erythrocytes count (nu mber/volume)Ordered By: Dr. Linda on 07-03-2022 RBC (Bld) [#/Vol] 4.57 10*6/uL 4.2-5.4 [facility] Blood hemoglobin measurement (mass/volume)Ordered By: Dr. Linda on 07-03-2022 Hemoglobin (Bld) [Mass/Vol] 13.0 g/dL 12.0-15.0 [facility] Blood lymphocytes/100 leukoc ytesOrdered By: Dr. Linda on 07-03-2022 Lymphocytes/100 WBC (Bld) 30.8 % 19-41 [facility] Blood monocytes/100 leukocyt esOrdered By: Dr. Linda on 07-03-2022 Monocytes/100 WBC (Bld) 6.9 % 0-10 [facility] Blood platelet mean volumeOr dered By: Dr. Linda on 07-03-2022 Platelet mean volume (Bld) [Entitic vol] 11.0 fL 6.2-12.0 [facility] Determination of erythrocyte mean corpuscular volume (MCV)Ordered By: Dr. Linda on 07-03-2022 MCV (RBC) [Entitic vol] 90.6 fL 81-99 [facility] Hematocrit Auto (Bld) [Volum e fraction]Ordered By: Dr. Linda on 07-03-2022 Hematocrit (Bld) [Volume fraction] 41.4 % 37-47 [facility] Iron measurement (mass/mass) Ordered By: Dr. Linda on 07-03-2022 Iron (Unsp spec) [Mass/Mass] 67 ug/dL 50-170 [facility] Laboratory - Chemistry and C hemistry - challengeOrdered By: Dr. Linda on 07-03-2022 ALP [Catalytic activity/Vol] 72 U/L 45-117 [facility] ALT [Catalytic activity/Vol] 26 U/L 13-56 [facility] CO2 [Moles/Vol] 24.0 mmol/L 21.0-32.0 [facility] Cobalamin (Vitamin B12) [Mass/Vol] 310 pg/mL 211-911 [facility] Globulin (S) [Mass/Vol] 4.0 g/dL 2.2-4.2 [facility] Urea nitrogen/Creatinine [Mass ratio] 39.9 mg/mg 10-20 [facility] Laboratory - Hematology and Cell countsOrdered By: Dr. Linda on 07-03-2022 Erythrocyte distribution width (RBC) [Entitic vol] 49.3 fL 35.1-43.9 [facility] Erythrocyte distribution width (RBC) [Ratio] 14.8 % 11.6-14.6 [facility] Immature granulocytes/100 WBC (Bld) 0.200 % 0.0-0.9 [facility] Comment on above: IG% - Immature Granu locytes (promyelocytes, myelocytes and metamyelocytes) > 1% indicates that a LEFT SHIFT is Present. MCH (RBC) [Entitic mass] 28.4 pg 27.0-32.0 [facility] Nucleated RBC/100 WBC (Bld) [Ratio] 0 % 0-5 [facility] MCHC Auto (RBC) [Mass/Vol]Or dered By: Dr. Linda on 07-03-2022 MCHC (RBC) [Mass/Vol] 31.4 g/dL 32-36 [facility] No Panel InformationOrdered By: Dr. Linda on 07-03-2022 Estimated GFR (MDRD) Amer 110 mL/min >60 [facility] Comment on above: GFR Calc Estimated GFR (MDRD) Non-Af Amer 91 mL/min >60 [facility] Comment on above: Non- GFR Calc Total Iron Binding Capacity 337 ug/dL 250-450 [facility] Vitamin D 25-Hydroxy 30.0 ng/mL [facility] Comment on above: Vitamin D 25(OH) Sta tus Range Deficiency <20 ng/mL (50nmol/L) Insufficiency 20 - 30 ng/mL (50 - 75 nmol/L) Sufficiency 30 - 100 ng/mL (75 - 250 nmol/L) Toxicity >100 ng/mL (>250 nmol/L) Platelets bldOrdered By: Dr. Linda on 07-03-2022 Platelets (Bld) [#/Vol] 341 10*3/uL 150-450 [facility] Serum or plasma albumin ralph urement (mass/volume)Ordered By: Dr. Linda on 07-03-2022 Albumin [Mass/Vol] 3.8 g/dL 3.2-5.0 [facility] Serum or plasma albumin/glob ulin mass ratioOrdered By: Dr. Linda on 07-03-2022 Albumin/Globulin [Mass ratio] 1.0 {ratio} 0.9-2.4 [facility] Serum or plasma calcium ralph urement (mass/volume)Ordered By: Dr. Linda on 07-03-2022 Calcium [Mass/Vol] 8.9 mg/dL 8.5-10.1 [facility] Serum or plasma creatinine m easurement (mass/volume)Ordered By: Dr. Linda on 07-03-2022 Creatinine [Mass/Vol] 0.68 mg/dL 0.55-1.02 [facility] Comment on above: The validity of the calculated GFR & GFRAA in patients over 70 years has not been determined. Clinical correlation is essential. Serum or plasma ferritin maryellen surement (mass/volume)Ordered By: Dr. Linda on 07-03-2022 Ferritin [Mass/Vol] 49 ng/mL 8-252 [facility] Serum or plasma folate measu rement (mass/volume)Ordered By: Dr. Linda on 07-03-2022 Folate [Mass/Vol] 23.60 ng/mL 3.1-55.4 [facility] Serum or plasma urea nitroge n measurement (mass/volume)Ordered By: Dr. Linda on 07-03-2022 Urea nitrogen [Mass/Vol] 27 mg/dL 7-18 [facility] Thin prep Papanicolaou smear with manual screeningOrdered By: Dr. Linda on 07-03-2022 Thin prep Papanicolaou smear with manual screening 20 U/L 15-37 [facility] Thin prep Papanicolaou smear with manual screening 8 5-15 [facility] Basophil percentageon 2021 Bilirubin [Mass/Vol] 0.50 mg/dL 0.20-1.00 [facility] Work Phone: Comment on above: For patients on eltr ombopag therapy, use of Dimension [place] TBIL is not recommended. Chloride [Moles/Vol] 111 mmol/L 98-107 [facility] Work Phone: Glucose [Mass/Vol] 82 mg/dL 74-106 [facility] Work Phone: Potassium [Moles/Vol] 3.8 mmol/L 3.5-5.1 [facility] Work Phone: Protein [Mass/Vol] 7.4 g/dL 6.4-8.2 [facility] Work Phone: Sodium [Moles/Vol] 141 mmol/L 136-145 [facility] Work Phone: Laboratory - Chemistry and C hemistry - challengeon 02-21-2022 ALP [Catalytic activity/Vol] 82 U/L 45-117 [facility] Work Phone: ALT [Catalytic activity/Vol] 20 U/L 13-56 [facility] Work Phone: CO2 [Moles/Vol] 24.0 mmol/L 21.0-32.0 [facility] [facility] Work Phone: Globulin (S) [Mass/Vol] 3.8 g/dL 2.2-4.2 [facility] Work Phone: Urea nitrogen/Creatinine [Mass ratio] 25.8 mg/mg 10-20 [facility] Work Phone: No Panel Informationon 02-21 Estimated GFR (MDRD) Amer 122 mL/min >60 [facility] Work Phone: Comment on above: GFR Calc Estimated GFR (MDRD) Non-Af Amer 101 mL/min >60 [facility] Work Phone: Comment on above: Non- GFR Calc Vitamin D 25-Hydroxy 14.6 ng/mL [facility] Work Phone: Comment on above: Vitamin D 25(OH) Sta tus Range Deficiency <20 ng/mL (50nmol/L) Insufficiency 20 - 30 ng/mL (50 - 75 nmol/L) Sufficiency 30 - 100 ng/mL (75 - 250 nmol/L) Toxicity >100 ng/mL (>250 nmol/L) Serum or plasma albumin ralph urement (mass/volume)on 02-21-2022 Albumin [Mass/Vol] 3.6 g/dL 3.2-5.0 [facility] Work Phone: Serum or plasma albumin/glob ulin mass ratioon 02-21-2022 Albumin/Globulin [Mass ratio] 0.9 {ratio} 0.9-2.4 [facility] Work Phone: Serum or plasma calcium ralph urement (mass/volume)on 02-21-2022 Calcium [Mass/Vol] 9.0 mg/dL 8.5-10.1 [facility] Work Phone: Serum or plasma creatinine m easurement (mass/volume)on 02-21-2022 Creatinine [Mass/Vol] 0.62 mg/dL 0.55-1.02 [facility] Work Phone: Comment on above: The validity of the calculated GFR & GFRAA in patients over 70 years has not been determined. Clinical correlation is essential. Serum or plasma urea nitroge n measurement (mass/volume)on 02-21-2022 Urea nitrogen [Mass/Vol] 16 mg/dL 7-18 [facility] Work Phone: Thin prep Papanicolaou smear with manual screeningon 02-21-2022 Thin prep Papanicolaou smear with manual screening 18 U/L 15-37 [facility] Work Phone: Thin prep Papanicolaou smear with manual screening 6 5-15 [facility] Work Phone: Iron measurement (mass/mass) on 12-12-2021 Iron (Unsp spec) [Mass/Mass] 77 ug/dL 50-170 [facility] Work Phone: No Panel Informationon 12-12 Total Iron Binding Capacity 319 ug/dL 250-450 [facility] Work Phone: Serum or plasma ferritin maryellen surement (mass/volume)on 12-12-2021 Ferritin [Mass/Vol] 59 ng/mL 8-252 [facility] Work Phone: Absolute lymphocyte counton 10-09-2021 Lymphocytes Auto (Unsp spec) [#/Vol] 2.07 10*3/uL 0.83-4.51 [facility] Work Phone: Basophil percentageon 2021 Basophils/100 WBC (Bld) 1.0 % 0-1 [facility] Work Phone: Bilirubin [Mass/Vol] 0.20 mg/dL 0.20-1.00 [facility] Work Phone: Comment on above: For patients on eltr ombopag therapy, use of Dimension [place] TBIL is not recommended. Chloride [Moles/Vol] 111 mmol/L 98-107 [facility] Work Phone: Eosinophils/100 WBC (Bld) 2.4 % 0-5 [facility] Work Phone: Glucose [Mass/Vol] 79 mg/dL 74-106 [facility] Work Phone: [phone] Neutrophils (Bld) [#/Vol] 3.1 10*3/uL 2.0-7.7 [facility] Work Phone: [phone] Neutrophils/100 WBC (Bld) 53.0 % 47-70 [facility] Work Phone: [phone] Potassium [Moles/Vol] 3.6 mmol/L 3.5-5.1 [facility] Work Phone: [phone] Protein [Mass/Vol] 7.7 g/dL 6.4-8.2 [facility] Work Phone: [phone] Sodium [Moles/Vol] 143 mmol/L 136-145 [facility] Work Phone: [phone] WBC (Bld) [#/Vol] 5.9 10*3/uL 4.4-11.0 [facility] Work Phone: [phone] Blood erythrocytes count (nu mber/volume)on 10-09-2021 RBC (Bld) [#/Vol] 4.58 10*6/uL 4.2-5.4 [facility] Work Phone: [phone] Blood hemoglobin measurement (mass/volume)on 10-09-2021 Hemoglobin (Bld) [Mass/Vol] 13.4 g/dL 12.0-15.0 [facility] Work Phone: Blood lymphocytes/100 leukoc yteson 10-09-2021 Lymphocytes/100 WBC (Bld) 35.4 % 19-41 [facility] Work Phone: Blood monocytes/100 leukocyt eson 10-09-2021 Monocytes/100 WBC (Bld) 7.9 % 0-10 [facility] Work Phone: Blood platelet mean volumeon 10-09-2021 Platelet mean volume (Bld) [Entitic vol] 11.3 fL 6.2-12.0 [facility] Work Phone: Determination of erythrocyte mean corpuscular volume (MCV)on 10-09-2021 MCV (RBC) [Entitic vol] 90.4 fL 81-99 [facility] Work Phone: Hematocrit Auto (Bld) [Volum e fraction]on 10-09-2021 Hematocrit (Bld) [Volume fraction] 41.4 % 37-47 [facility] Work Phone: [phone] Iron measurement (mass/mass) on 10-09-2021 Iron (Unsp spec) [Mass/Mass] 43 ug/dL 50-170 [facility] Work Phone: Laboratory - Chemistry and C hemistry - challengeon 10-09-2021 ALP [Catalytic activity/Vol] 88 U/L 45-117 [facility] Work Phone: ALT [Catalytic activity/Vol] 30 U/L 13-56 [facility] Work Phone: CO2 [Moles/Vol] 25.0 mmol/L 21.0-32.0 [facility] Work Phone: Cobalamin (Vitamin B12) [Mass/Vol] 298 pg/mL 211-911 [facility] Work Phone: Globulin (S) [Mass/Vol] 4.0 g/dL 2.2-4.2 [facility] Work Phone: Urea nitrogen/Creatinine [Mass ratio] 22.8 mg/mg 10-20 [facility] Work Phone: Laboratory - Hematology and Cell countson 10-09-2021 Erythrocyte distribution width (RBC) [Entitic vol] 45.5 fL 35.1-43.9 [facility] Work Phone: Erythrocyte distribution width (RBC) [Ratio] 13.7 % 11.6-14.6 [facility] Work Phone: Immature granulocytes/100 WBC (Bld) 0.300 % 0.0-0.9 [facility] Work Phone: Comment on above: IG% - Immature Granu locytes (promyelocytes, myelocytes and metamyelocytes) > 1% indicates that a LEFT SHIFT is Present. MCH (RBC) [Entitic mass] 29.3 pg 27.0-32.0 [facility] Work Phone: Nucleated RBC/100 WBC (Bld) [Ratio] 0 % 0-5 [facility] Work Phone: MCHC Auto (RBC) [Mass/Vol]on 10-09-2021 MCHC (RBC) [Mass/Vol] 32.4 g/dL 32-36 [facility] Work Phone: No Panel Informationon 10-09 Estimated GFR (MDRD) Amer 106 mL/min >60 [facility] Work Phone: Comment on above: GFR Calc Estimated GFR (MDRD) Non-Af Amer 87 mL/min >60 [facility] Work Phone: Comment on above: Non- GFR Calc Total Iron Binding Capacity 337 ug/dL 250-450 [facility] Work Phone: Platelets bldon 10-09-2021 Platelets (Bld) [#/Vol] 317 10*3/uL 150-450 [facility] Work Phone: Serum or plasma albumin ralph urement (mass/volume)on 10-09-2021 Albumin [Mass/Vol] 3.7 g/dL 3.2-5.0 [facility] Work Phone: Serum or plasma albumin/glob ulin mass ratioon 10-09-2021 Albumin/Globulin [Mass ratio] 0.9 {ratio} 0.9-2.4 [facility] Work Phone: Serum or plasma calcium ralph urement (mass/volume)on 10-09-2021 Calcium [Mass/Vol] 9.3 mg/dL 8.5-10.1 [facility] Work Phone: Serum or plasma creatinine m easurement (mass/volume)on 10-09-2021 Creatinine [Mass/Vol] 0.70 mg/dL 0.55-1.02 [facility] Work Phone: Comment on above: The validity of the calculated GFR & GFRAA in patients over 70 years has not been determined. Clinical correlation is essential. Serum or plasma ferritin maryellen surement (mass/volume)on 10-09-2021 Ferritin [Mass/Vol] 50 ng/mL 8-252 [facility] Work Phone: Serum or plasma folate measu rement (mass/volume)on 10-09-2021 Folate [Mass/Vol] 8.20 ng/mL 3.1-55.4 [facility] Work Phone: Serum or plasma urea nitroge n measurement (mass/volume)on 10-09-2021 Urea nitrogen [Mass/Vol] 16 mg/dL 7-18 [facility] Work Phone: Thin prep Papanicolaou smear with manual screeningon 10-09-2021 Thin prep Papanicolaou smear with manual screening 24 U/L 15-37 [facility] Work Phone: Thin prep Papanicolaou smear with manual screening 7 5-15 [facility] Work Phone: CURon 03-24-2020 CUR . MICRO [...] Locations *1: This test was performed at: [facility], [address] [place] [address], [facility] , [facility] ([place]) Comment on above: Performed By: #### C UR #### [place] [address] .Auto Diffon 03-23-2020 Ammonia (P) [Mass/Vol] 1.00 10 3/mcL Normal 0.15-1.00 [facility] ([place]) Comment on above: Performed By: #### A ROMAINE, GFR, ADIFF, CBC #### [place] [address] #### CMP #### [place] [address] Basophils (Bld) [#/Vol] 0.00 10 3/mcL Normal 0.00-0.19 [facility] ([place]) Comment on above: Performed By: #### A ROMAINE, GFR, ADIFF, CBC #### [place] [address] #### CMP #### [place] [address] Basophils/100 WBC (Bld) 0.1 % Normal 0.0-2.5 [facility] ([place]) Comment on above: Performed By: #### A ROMAINE, GFR, ADIFF, CBC #### [place] [address] #### CMP #### [place] [address] Eosinophils (Bld) [#/Vol] 0.00 10 3/mcL Normal 0.00-0.40 [facility] ([place]) Comment on above: Performed By: #### A ROMAINE, GFR, ADIFF, CBC #### [place] [address] #### CMP #### [address] [address] Eosinophils/100 WBC (Bld) 0.0 % Normal 0.0-7.0 [facility] ([place]) Comment on above: Performed By: #### A ROMAINE, GFR, ADIFF, CBC #### [place] [address] #### CMP #### [address] [address] Lymphocytes (Bld) [#/Vol] 0.50 10 3/mcL Low 0.77-3.85 [facility] ([place]) Comment on above: Performed By: #### A ROMAINE, GFR, ADIFF, CBC #### [place] [address] #### CMP #### [address] [address] Lymphocytes/100 WBC (Bld) 2.2 % Low 10.0-50.0 [facility] ([place]) Comment on above: Performed By: #### A ROMAINE, GFR, ADIFF, CBC #### [place] [address] #### CMP #### [address] [address] Monocytes/100 WBC (Bld) 4.5 % Normal 1.7-13.0 [facility] ([place]) Comment on above: Performed By: #### A ROMAINE, GFR, ADIFF, CBC #### [place] [address] #### CMP #### [address] [address] Neutrophils/100 WBC (Bld) 93.2 % High 37.0-80.0 [facility] ([place]) Comment on above: Performed By: #### A ROMAINE, GFR, ADIFF, CBC #### [place] [address] #### CMP #### [address] [address] .GFRon 03-23-2020 GFR 50 ml/min/1.73sqm Normal [facility] ([place]) Comment on above: Result Comment: GFR Population [...] #### A ROMAINE, GFR, ADIFF, CBC #### [address] [address] #### CMP #### [address] [address] GFR Non- 41 ml/min/1.73sqm Normal [facility] ([place]) Comment on above: Result Comment: GFR Population [...] #### A ROMAINE, GFR, ADIFF, CBC #### [address] [address] #### CMP #### [place] [address] .NEUABSon 03-23-2020 Neutrophils (Bld) [#/Vol] 20.30 10 3/mcL High 2.85-6.16 [facility] ([place]) Comment on above: Performed By: #### A ROMAINE, GFR, ADIFF, CBC #### [place] [address] #### CMP #### [place] [address] .Urinalysis Microscopic (AO) on 03-23-2020 RBC (U) [#/Vol] 5-10 Abnormal None Seen [facility] ([place]) Comment on above: Performed By: #### U AMICAO, UA #### [place] [address] UA Bacteria 2+ /hpf Abnormal [facility] ([place]) Comment on above: Performed By: #### U AMICAO, UA #### [place] [address] UA Squam Epithelial 0-5 Abnormal None Seen [facility] ([place]) Comment on above: Performed By: #### U AMICAO, UA #### [place] [address] UA WBC 15-25 Abnormal None Seen [facility] ([place]) Comment on above: Performed By: #### U AMICAO, UA #### [place] [address] CBCon 03-23-2020 Erythrocyte distribution width (RBC) [Ratio] 13.8 % Normal 11.5-14.5 [facility] ([place]) Comment on above: Performed By: #### A ROMAINE, GFR, ADIFF, CBC #### [place] [address] #### CMP #### [place] [address] Hematocrit (Bld) [Volume fraction] 36.0 % Low 37.0-47.0 [facility] ([place]) Comment on above: Performed By: #### A ROMAINE, GFR, ADIFF, CBC #### [address] [address] #### CMP #### [place] [address] Hemoglobin (Bld) [Mass/Vol] 12.2 G/dL Normal 12.0-16.0 [facility] ([place]) Comment on above: Performed By: #### A ROMAINE, GFR, ADIFF, CBC #### [place] [address] #### CMP #### [place] [address] MCH (RBC) [Entitic mass] 30.0 pg Normal 27.0-31.2 [facility] ([place]) Comment on above: Performed By: #### A ROMAINE, GFR, ADIFF, CBC #### [place] [address] #### CMP #### [place] [address] MCHC (RBC) [Mass/Vol] 33.9 G/dL Normal 33.0-37.0 [facility] ([place]) Comment on above: Performed By: #### A ROMAINE, GFR, ADIFF, CBC #### [place] [address] #### CMP #### [place] [address] MCV (RBC) [Entitic vol] 88.6 fL Normal 80.0-94.0 A [facility] ([place]) Comment on above: Performed By: #### A ROMAINE, GFR, ADIFF, CBC #### [address] [address] #### CMP #### [place] [address] Platelet mean volume (Bld) [Entitic vol] 8.2 fL Normal 7.4-10.4 [facility] ([place]) Comment on above: Performed By: #### A ROMAINE, GFR, ADIFF, CBC #### [place] [address] #### CMP #### [address] [address] Platelets (Bld) [#/Vol] 225 10 3/mcL Normal 130-400 [facility] ([place]) Comment on above: Performed By: #### A ROMAINE, GFR, ADIFF, CBC #### [place] [address] #### CMP #### [place] [address] RBC (Bld) [#/Vol] 4.06 10 6/mcL Low 4.20-5.40 [facility] ([place]) Comment on above: Performed By: #### A ROMAINE, GFR, ADIFF, CBC #### [place] [address] #### CMP #### [place] [id number] WBC (Bld) [#/Vol] 21.80 10 3/mcL Critically abnormal 4.60-10.80 [facility] ([place]) Comment on above: Performed By: #### A ROMAINE, GFR, ADIFF, CBC #### [place] [address] #### CMP #### [place] [address] CMPon 03-23-2020 Albumin [Mass/Vol] 3.4 G/dL Normal 3.4-4.8 [facility] ([place]) Comment on above: Performed By: #### A ROMAINE, GFR, ADIFF, CBC #### [place] [address] #### CMP #### [place] [address] Albumin/Globulin [Mass ratio] 1.1 {ratio} Normal 1.1-2.5 [facility] ([place]) Comment on above: Performed By: #### A ROMAINE, GFR, ADIFF, CBC #### [place] [address] #### CMP #### [address] [address] ALP [Catalytic activity/Vol] 76 U/L Normal 40-135 [facility] ([place]) Comment on above: Performed By: #### A ROMAINE, GFR, ADIFF, CBC #### [address] [address] #### CMP #### [address] [address] ALT [Catalytic activity/Vol] 25 U/L Normal 14-59 [facility] ([place]) Comment on above: Performed By: #### A ROMAINE, GFR, ADIFF, CBC #### [place] [address] #### CMP #### [address] [address] AST [Catalytic activity/Vol] 15 U/L Normal 10-40 [facility] ([place]) Comment on above: Performed By: #### A ROMAINE, GFR, ADIFF, CBC #### [place] [address] #### CMP #### [address] [address] Bili Total 0.7 mg/dL Normal 0.2-1.0 [facility] ([place]) Comment on above: Result Comment: Use of this assay is not recommended for patients undergoing treatment with eltrombopag due to the potential for falsely elevated results. Performed By: #### A ROMAINE, GFR, ADIFF, CBC #### [place] [address] #### CMP #### [address] [address] Calcium [Mass/Vol] 8.6 mg/dL Normal 8.4-10.2 [facility] ([place]) Comment on above: Performed By: #### A ROMAINE, GFR, ADIFF, CBC #### [place] [address] #### CMP #### [address] [address] Chloride [Moles/Vol] 106 mmol/L Normal 98-107 [facility] ([place]) Comment on above: Performed By: #### A ROMAINE, GFR, ADIFF, CBC #### [address] [address] #### CMP #### [address] [address] CO2 [Moles/Vol] 25 mmol/L Normal 23-31 [facility] ([place]) Comment on above: Performed By: #### A ROMAINE, GFR, ADIFF, CBC #### [address] [address] #### CMP #### [address] [address] Creatinine [Mass/Vol] 1.28 mg/dL High 0.55-1.02 [facility] ([place]) Comment on above: Performed By: #### A ROMAINE, GFR, ADIFF, CBC #### [address] [address] #### CMP #### [address] [address] Electrolyte Balance 11.0 mEq/L Normal [facility] ([place]) Comment on above: Performed By: #### A ROMAINE, GFR, ADIFF, CBC #### [address] [address] #### CMP #### [address] [address] Globulin (S) [Mass/Vol] 3.2 G/dL Normal [facility] ([place]) Comment on above: Performed By: #### A ROMAINE, GFR, ADIFF, CBC #### [address] [address] #### CMP #### [address] [address] Glucose [Mass/Vol] 156 mg/dL High 83-110 [facility] ([place]) Comment on above: Performed By: #### A ROMAINE, GFR, ADIFF, CBC #### [address] [address] #### CMP #### [address] [address] Potassium [Moles/Vol] 3.6 mmol/L Normal 3.5-5.1 [facility] ([place]) Comment on above: Performed By: #### A ROMAINE, GFR, ADIFF, CBC #### [address] [address] #### CMP #### [address] [address] Protein [Mass/Vol] 6.6 G/dL Normal 6.4-8.2 [facility] ([place]) Comment on above: Performed By: #### A ROMAINE, GFR, ADIFF, CBC #### [address] [address] #### CMP #### [address] [address] Sodium [Moles/Vol] 142 mmol/L Normal 136-145 [facility] ([place]) Comment on above: Performed By: #### A ROMAINE, GFR, ADIFF, CBC #### [address] [address] #### CMP #### [address] [address] Urea nitrogen [Mass/Vol] 24 mg/dL High 7-18 [facility] ([place]) Comment on above: Performed By: #### A ROMAINE, GFR, ADIFF, CBC #### [address] [address] #### CMP #### [address] [address] Urea nitrogen/Creatinine [Mass ratio] 19 ratio Normal 7-27 [facility] ([place]) Comment on above: Performed By: #### A ROMAINE, GFR, ADIFF, CBC #### [address] [address] #### CMP #### [address] [address] UAon 03-23-2020 Color (U) Yellow Normal [facility] ([place]) Comment on above: Performed By: #### U AMICAO, UA #### [place] [address] [address] Glucose (U) [Mass/Vol] Negative Normal Negative [facility] ([place]) Comment on above: Performed By: #### U AMICAO, UA #### [place] [address] [address] Ketones Ql (U) 15 mg/dL Abnormal Negative [facility] ([place]) Comment on above: Performed By: #### U AMICAO, UA #### [place] [address] [address] UA Appear Slightly Cloudy Abnormal Clear [facility] ([place]) Comment on above: Performed By: #### U AMICAO, UA #### [place] [address] [address] UA Blood Moderate Abnormal Negative [facility] ([place]) Comment on above: Performed By: #### U AMICAO, UA #### [place] [address] [address] UA Leuk Est Large Abnormal Negative [facility] ([place]) Comment on above: Performed By: #### U AMICAO, UA #### [place] [address] [address] UA Nitrite Positive Abnormal Negative [facility] ([place]) Comment on above: Performed By: #### U AMICAO, UA #### [place] [address] [address] UA pH 7.0 Normal 5.0 - 8.0 [facility] ([place]) Comment on above: Performed By: #### U AMICAO, UA #### [address] [address] UA Protein Negative Normal Negative [facility] ([place]) Comment on above: Performed By: #### U AMICAO, UA #### [place] [address] [address] UA Spec Grav 1.020 Normal 1.015-1.025 [facility] ([place]) Comment on above: Performed By: #### U AMICAO, UA #### [address] [place] [place], [place] [address] UA Specimen Type Void Normal [facility] ([place]) Comment on above: Performed By: #### U AMICAO, UA #### [address] [place], [place] [address] UA Urobilinogen 0.2 E.U./dL Normal 0.2-1.0 [facility] ([place]) Comment on above: Performed By: #### U AMICAO, UA #### [facility] [address] [place], [place] [address] Urobilinogen Qn (U) Negative Normal Negative [facility] ([place]) Comment on above: Performed By: #### U AMICAO, UA #### [facility] [address] [place], [place] [address] Vital Signs Date Time Vital Sign Value Performing Clinician Faci lity 01-28-2025 12:27-0400 Body temperature 98.7 [degF] Dr. Clyde Linda MD Work Phone: [facility] 01-28-2025 12:27-0400 Diastolic blood pressure 78 mm[Hg] Dr. Clyde Linda MD Work Phone: [facility] 01-28-2025 12:27-0400 Heart rate 66 /min Dr. Clyde Linda MD Work Phone: [facility] 01-28-2025 12:27-0400 Respiratory rate 16 /min Dr. Clyde Linda MD Work Phone: [facility] 01-28-2025 12:27-0400 SaO2% (BldA) [Mass fraction] 100 % Dr. Clyde Linda MD Work Phone: [facility] 01-28-2025 12:27-0400 Systolic blood pressure 130 mm[Hg] Dr. Clyde Linda MD Work Phone: [facility] 01-28-2025 08:00-0400 Body height 152.[address] Clyde Linda MD Work Phone: [facility] 01-28-2025 08:00-0400 Body mass index (BMI) [Ratio] 38.3 kg/m2 Dr. Clyde Linda MD Work Phone: [facility] 01-28-2025 08:00-0400 Body weight 89.[address] Clyde Linda MD Work Phone: 7(708)[phone] [place] [address] 01-12-2025 12:02-0400 Body height 152.[address] Clyde Linda MD Work Phone: 2(423)[phone] [place] [address] 01-12-2025 12:02-0400 Body mass index (BMI) [Ratio] 27.3 kg/m2 Dr. Clyde Linda MD Work Phone: [phone])[phone] [address] 01-12-2025 12:02-0400 Body temperature 98.1 [degF] Dr. Clyde Linda MD Work Phone: 5(647)[phone] [place] [address] 01-12-2025 12:02-0400 Body weight 63.[address] Clyde Linda MD Work Phone: 2(800)241-602032 [address] 01-12-2025 12:02-0400 Diastolic blood pressure 78 mm[Hg] Dr. Clyde Lidna MD Work Phone: 0(104)[phone] [place] [address] 01-12-2025 12:02-0400 Heart rate 62 /min Dr. Clyde Linda MD Work Phone: [facility] 01-12-2025 12:02-0400 Systolic blood pressure 126 mm[Hg] Dr. Clyde Linda MD Work Phone: 3(774)[phone] [place] [address] 11-26-2024 15:35-0400 Body temperature 97.3 [degF] Dr. Clyde Linda MD Work Phone: 5(686)651-735204 [place] [address] 11-26-2024 15:35-0400 Diastolic blood pressure 76 mm[Hg] Dr. Clyde Linda MD Work Phone: 9(722)[phone] [place] [address] 11-26-2024 15:35-0400 Heart rate 55 /min Dr. Clyde Linda MD Work Phone: [facility] 11-26-2024 15:35-0400 Respiratory rate 16 /min Dr. Clyde Linda MD Work Phone: 9(790)948-122932 [address] 11-26-2024 15:35-0400 SaO2% (BldA) [Mass fraction] 98 % Dr. Clyde Linda MD Work Phone: 3(213)[phone] [place] [address] 11-26-2024 15:35-0400 Systolic blood pressure 150 mm[Hg] Dr. Clyde Linda MD Work Phone: 5(074)262-692847 [place] [address] 11-26-2024 11:16-0400 Body height 152.[address] Clyde Linda MD Work Phone: 4(733)[phone] [place] [address] 11-26-2024 11:16-0400 Body mass index (BMI) [Ratio] 25.8 kg/m2 Dr. Clyde Linda MD Work Phone: 2(231)[phone] [place] [address] 11-26-2024 11:16-0400 Body weight [address] Clyde Linda MD Work Phone: 5(384)[phone] [place] [address] 11-20-2024 16:22-0400 Body height 152.[address] Clyde Linda MD Work Phone: 2(372)[phone] [place] [address] 11-20-2024 16:22-0400 Body mass index (BMI) [Ratio] 27.3 kg/m2 Dr. Clyde Linda MD Work Phone: 0(332)[phone] [place] [address] 11-20-2024 16:22-0400 Body weight [address] Clyde Linda MD Work Phone: [phone] [place] [address] 11-20-2024 16:22-0400 Diastolic blood pressure 90 mm[Hg] Dr. Clyde Linda MD Work Phone: [phone] [place] [address] 11-20-2024 16:22-0400 Heart rate 62 /min Dr. Clyde Linda MD Work Phone: [phone] [place] [address] 11-20-2024 16:22-0400 Systolic blood pressure 138 mm[Hg] Dr. Clyde Linda MD Work Phone: [facility] Encounters Encounter Date Encounter Type Care Provider Facility Start: 02-11-2025 [facility] Start: 02-02-2025 Encounter for other preprocedural examination Yanira Barahona [facility] Start: 01-28-2025 Non-patient / Non-visit Dr. Thierno Barahona MD -[facility] Start: 01-28-2025 End: 01-28-2025 Admission to same day surgery center Dr. Yanira Barahona MD [facility] Start: 01-28-2025 End: 01-28-[address] Clyde Linda MD Work Phone: [facility] Start: 01-21-2025 End: 01-21-[address] Yanira Barahona MD -[facility] Work Phone: Start: 01-21-2025 End: 01-21-[address] Clyde Linda MD Work Phone: -[facility] Start: 01-12-2025 End: 01-12-[address] Clyde Linda MD Work Phone: -[facility] Start: 01-12-2025 End: 01-12-[address] Yanira Barahona MD -[facility] Work Phone: Start: 01-12-2025 End: 01-12-2025 ambulatory Clyde Linda Facility:[facility] Start: 12-03-2024 ambulatory Clyde Linda Facilit y:[facility] Start: 12-03-2024 Non-patient / Non-visit Dr. Thierno Barahona MD -[facility] Start: 11-26-2024 ambulatory Yanira Barahona Facility: [facility] Start: 11-26-2024 Non-patient / Non-visit Dr. Thierno Barahona MD -[facility] Start: 11-26-2024 End: 11-26-2024 Admission to same day surgery center Dr. Yanira Barahona MD [facility] Start: 11-26-2024 End: 11-26-[address] Clyde Linda MD Work Phone: [facility] Start: 11-20-2024 End: 11-20-[address] Yanira Barahona MD -[facility] Work Phone: Start: 11-20-2024 End: 11-20-[address] Clyde Linda MD Work Phone: -[facility] Start: 11-17-2024 End: 11-17-2024 ambulatory Yanira Barahona Facility:[facility] Start: 11-17-2024 End: 11-17-2024 Non-patient / Non-visit Dr. Kyaw Perry MD -[facility] Work Phone: Start: 10-28-2024 End: 10-28-[address] [facility] [employer] Start: 10-28-2024 End: 10-28-[address] Clyde Linda MD -[facility] Start: 10-28-2024 End: 10-28-2024 ambulatory Clyde Linda Facility:[facility] Start: 10-20-2024 Non-patient / Non-visit Dr. Thierno Barahona MD -[facility] Work Phone: Start: 09-30-2024 End: 09-30-[address] Clyde Linda MD Work Phone: [facility] Work Phone: Start: 09-30-2024 End: 09-30-[address] Yanira Barahona MD -[facility] Work Phone: Start: 09-30-2024 End: 09-30-2024 ambulatory Yanira Barahona Facility:[facility] Start: 09-18-2024 End: 09-18-[address] Clyde Linda MD Work Phone: [facility] Work Phone: Start: 09-18-2024 End: 09-18-[address] Yanira Barahona MD -Cat Scan [facility] Work Phone: Start: 09-18-2024 End: 09-18-2024 ambulatory Yanira Barahona Facility:[facility] Start: 09-01-2024 End: 09-01-[address] Clyde Linda MD Work Phone: [facility] Work Phone: Start: 09-01-2024 End: 09-01-[address] Yanira Barahona MD -Ultrasound [facility] Work Phone: Start: 09-01-2024 End: 09-01-2024 ambulatory Yanira Barahona Facility:[facility] Start: 07-29-2024 End: 07-29-[address] Clyde Linda MD Work Phone: [facility] Work Phone: Start: 07-29-2024 End: 07-29-[address] Clyde Linda MD -[facility] Start: 07-29-2024 End: 07-29-2024 ambulatory Clyde Linda Facility:[facility] Start: 02-12-2024 End: 02-12-2024 ambulatory Clyde Linda Facility:[facility] Start: 07-09-2023 End: 07-09-2023 ambulatory [facility] Work Phone: Start: 07-09-2023 End: 07-09-2023 Patient encounter procedure [facility] Start: 02-04-2023 End: 02-04-2023 ambulatory [facility] Work Phone: Start: 02-04-2023 End: 02-04-2023 Patient encounter procedure [facility]-Outpatient Breast Imaging Work Phone: Start: 07-03-2022 End: 07-03-2022 ambulatory [facility] Work Phone: Start: 07-03-2022 End: 07-03-2022 Patient encounter procedure [facility] Start: 02-21-2022 End: 02-21-2022 ambulatory [facility] Work Phone: Start: 02-21-2022 End: 02-21-2022 Patient encounter procedure [facility] Start: 02-01-2022 End: 02-01-2022 ambulatory [facility] Work Phone: Start: 02-01-2022 End: 02-01-2022 Patient encounter procedure [facility]-Outpatient Bone Densitometry Start: 12-12-2021 End: 12-12-2021 ambulatory [facility] Work Phone: Start: 12-12-2021 End: 12-12-2021 Patient encounter procedure [facility] Start: 10-09-2021 End: 10-09-2021 Patient encounter procedure [facility] Procedures Date Procedure Procedure Detail Performing Clinician Start: 01-28-2025 Fluoroscopic guidance Alberto Linda MD Work Phone: Start: 01-28-2025 Cystoscopy and retrograde pyelography Dr. Clyde Linda MD Work Phone: Start: 01-12-2025 Plain X-ray abdomen Dr. Clyde Linda MD Work Phone: Start: 11-26-2024 Extracorporeal shock wave lithotripsy Dr. Clyde Linda MD Work Phone: Start: 10-28-2024 Vitamin D, [...] Treatment Date Care Activity Detail Author Start: 01-28-2025 Patient discharge [facility] Start: 11-26-2024 Anes lithotrp xtrcor p shock wave w/o water bath ANESTH KIDNEY STONE DESTRUCT [facility] Start: 11-26-2024 Cystoscopy and retro grade pyelography CYSTO/URETERO W/LITHOTRIPSY [facility] Start: 11-26-2024 Patient discharge [facility] Calculus analysis [facility] Measurement of weigh t of calculus [facility] Origin of [facility] Specimen color determination [facility] Payers Date Payer Category Payer Medicaid [id number] 2024 Private Health Insurance 101 [id number] 2024 Self-pay [id number] Medicare [id number] Unknown [id number] Unknown [id number] 2.16.8 [id number] Unknown [id number] 2.16.8 [id number] Unknown [id number] 2.16.8 [id number] Unknown [id number] 2.16.8 [id number] Unknown [id number] 2.16.8 40.1.791719.3.579.2.462 Unknown [id number] 2.16.8 40.1.059348.3.579.2.462 Unknown [id number] 2.16.8 40.1.754991.3.579.2.462 Unknown [id number] 2.16.8 40.1.989859.3.579.2.462 Unknown [id number] 2.16.8 40.1.960171.3.579.2.462 Unknown [id number] 2.16.8 40.1.285096.3.579.2.462 Unknown [id number] 2.16.8 40.1.906144.3.579.2.462 Unknown [id number] 2.16.8 40.1.929060.3.579.2.462 Unknown [id number] 2.16.8 40.1.920903.3.579.2.462 Unknown [id number] 2.16.8 [id number] Unknown [id number] 2.16.8 40.1.599768.3.579.2.462 Unknown [id number] 2.16.8 [id number] Unknown [id number] 2.16.8 [id number] Social History Date Type Detail Facility Start: 07-14-2020 End: 07-14-2020 Tobacco smoking status GAIS Unknown if ever smoked [facility] Start: 05-01-2020 None [facility] Start: 05-06-2020 With Family [facility] Start: 07-14-2020 Non-smoker [facility] Start: 1950 Sex Assigned At Female W [facility] Start: 10-01-2023 End: 01-20-2025 Tobacco smoking status GAIS Ex-smoker (finding) [facility] Start: 08-03-2024 Sex Female (finding) [facility] Not [facility] Medical Equipment Procedure Code Equipment Code Equipment Origin al Text Equipment Identifier Dates Lithotripsy, ESWL STENT,URETERAL PIGTAIL [id number] FDA Start: 11-26-2024 Lithotripsy, ESWL STENT,URETERAL PIGTAIL [id number] FDA Start: 11-26-2024 Lithotripsy, ESWL STENT,URETERAL PIGTAIL 6FRx22 FDA Start: 11-26-2024 Lithotripsy, ESWL STENT,URETERAL PIGTAIL 6FRx22 FDA Start: 11-26-2024 Cystoscopy, with retrograde pyelogram, ureteroscopy, laser procedure, and stent inser STENT,URETERAL PIGTAIL 6FRx22 FDA Start: 01-28-2025 Colonoscopy Ligation clip, metallic [id number] FDA Start: 10-07-2023 Goals Date Patient Goal Desired Activity /State Mental Status Date Assessment Result Facility 01-28-2025 Cognitive function Voice/Name [facility] Work Phone: 11-26-2024 Cognitive function Voice/Name;Touch/Gigi pires [facility] Work Phone: Clinical Notes 09-03-2024 to 01-28-2025 Note Date & Type Note Facility 01-28-2025 Consult note [facility] 01-28-2025 Procedure note [facility] 01-28-2025 Discharge summary [facility] 01-28-2025 Discharge summary Note Date/Time January 28, 2025 11:03am [facility] Medical Records Department [address] [place] [address] Instructions for Home/Discharge Instructions 01/28/25 0843 MR#: [id number] Acct: [id number] Name: SUELLEN LONG Rep #:[id number] : 1950 74 From: Yanira Dominguez PCP: Dr. 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:[facility] Discharge Instructions Diet Discharge Diet: No restrictions Activity Discharge Activity: Return to Normal Activity Dressing / Incision Call your doctor if your incision/area has: Sudden Increased Bleeding Call your doctor if you observe: Fever of 101 or Higher, Inability to urinate and Inability to have a bowel movement Follow Up Care Please Follow Up With: Yanira Barahona MD Test Results: Test results from this visit will be discussed in further detail at your follow-up appointment, if applicable. Discharge Plan Admission Attending Provider: Yanira Barahona Primary Care Provider: Clyde Linda Instructions Print Language: Swazi Discharge Orders/Prescriptions Prescriptions: New oxycodone-acetaminophen 5-325 mg tablet 1 tab PO Q8H PRN (Reason: pain) 3 Days Qty: 10 0RF ondansetron 4 mg tablet,disintegrating 4 mg PO Q8H PRN (Reason: nausea and vomiting) Qty: 10 0RF phenazopyridine 200 mg tablet 200 mg PO TID PRN (Reason: pain) Qty: 30 3RF Continued alendronate [Fosamax] 70 mg tablet 70 [...] 10 mg tablet 10 mg PO QHS Referrals / Follow Up: Clyde Linda MD [Primary Care Provider, Family Practice] Disposition Disposition (needs filled in before D/C Order can be placed): Home, Self Care 01/28/25 1103<Electronically signed by Yanira Barahona MD>Yanira Barahona MD CC: Dr. Clyde Linda MD ~ Signed [facility] Work Phone: 1(884) 606-991710-09-2025 History and physical note Author Yaniraefrem Barahona [facility] Note Date/Time January 28, 2025 8: [address] [place] [address] System Medical Records Department [address] [place] [address] History & Physical Exam 01/28/25 0833 MR#: [id number] Acct: [id number] Name: SUELLEN LONG Rep #:[id number] : 1950 74 From: Yanira Dominguez PCP: Dr. 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:[facility] Location: [place] [address] History and Physical Date of Admission: 01/28/25 Date of Service: 01/12/25 MR#: [id number] Acct: [id number] Name: SUELLEN LONG ANN Rep #: [id number] : 1950 Provider: Dr. Yanira Barahona MD Age/Sex: 74/F Location: [facility] Status: Signed Intake Vital Signs 11/26/2510:16 01/13/2512:02 Height 5 ft 5 ft Weight: 140 lb BMI 27.3 BP 126/78 H Pulse 62 Temp 98.1 F Intake Visit Reasons: KUB BEFORE APPT. 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 Is patient in pain?: No Allergies No Known Allergies Allergy (Verified 11/26/24 11:15) Medications ?Medication ?Instructions ?Recorded ?Confirmed ?Type omeprazole 20 mg delayed 20 mg PO DAILY ##90 07/19/20 01/12/25 Rx release,disintegrating tablet alendronate 70 mg tablet (Fosamax) 70 mg PO QWEEK 08/12/23 01/12/25 History calcium carbonate (Calcium 600) 600 mg PO DAILY 08/12/23 01/12/25 Histor y cholecalciferol (vitamin D3) 125 125 mcg PO DAILY 08/12/23 01/12/25 Histo ry mcg (5,000 unit) capsule amlodipine 5 mg tablet 5 mg PO QHS 11/12/24 01/12/25 History hldbifzt-plkc-ffzk 8 mg-folic 400 1 tab PO DAILY 11/12/24 01/12/25 History mcg-K 50 mcg-lutein 300 mcg tablet (Centrum Silver Women) rosuvastatin 10 mg tablet 10 mg PO QHS 11/12/24 01/12/25 History estradiol 0.01% (0.1 mg/gram) 1 g vaginal 3XW 3 months #42.5 11/20/24 01/12/25 Rx vaginal cream grams levofloxacin 500 mg tablet 500 mg PO QDAY #7 tabs 11/23/24 01/12/25 Rx ondansetron 4 mg disintegrating 4 mg PO Q8H PRN nausea and 11/26/2412/22 Rx tablet vomiting #10 tabs ondansetron 4 mg disintegrating 4 mg PO Q8H PRN nausea and 11/26/2412/22 Rx tablet vomiting #10 tabs oxycodone-acetaminophen 5 mg-325 1 tab PO Q8H PRN pain 3 days #10 5 01/12/25 Rx mg tablet tabs phenazopyridine 200 mg tablet 200 mg PO TID PRN pain #30 tabs 11/26/24 01/12/25 Rx phenazopyridine 200 mg tablet 200 mg PO TID #30 tabs 11/26/24 01/12/25 Rx (Pyridium) Have you fallen in the past year?: No PFSH Medical History Cystocele, midline Vaginal atrophy [...] you feel safe at home: Yes HPI [facility] Urology Chief Complaint: possible stent removal Details: SUELLEN LONG, is a 74 F. She is here for for follow-up after cystoscopy with left ureteral stent and leftrenal extracorporal shockwave lithotripsy. She is feeling well. There is no pain, hematuria, dysuria, fever or other sign of concern. She does have some urgency and incontinence. No issues with bowel movements and her appetite is good. She has not passed any significant stone fragments. ROS Const Constitutional: No chills, fatigue, fever(s), [...] Endocrine: No fatigue, increased thirst/drinking or weight change Aller/Imm Allergy/Immunologic: No itchy eyes or wheezing Ryne/Lymp Hematologic/Lymphatic: No easy bleeding, easy bruising or enlarged lymph nodes Exam Const General: cooperative, healthy appearing, comfortable and no acute distress [facility] Head: normocephalic and atraumatic Ears: hearing grossly normal bilaterally and external ears normal Nose: external nose normal Eyes General: appearance normal, both eyes and all related structures Neck Neck: normal visual inspection and trachea midline Chest Chest palpation & inspection: normal inspection of the chest Resp Effort & Inspection: normal respiratory effort, able to speak in complete sentences and symmetric chest movement Cardio Rate: regular rate GI Inspection: normal to inspection Palpation: soft and nontender General: No CVA tenderness Skin General: no rashes or lesions noted Neuro General: patient alert, patient awake, patient oriented x3 and CN's II-XI intactbilaterally Extrem General: normal to inspection Psych Appearance: grossly normal and well kempt Mental Status: mental status grossly normal Results POC Urinalysis w/Micro Office Urine Color YELLOW Last Edit by Veronica Castañeda on 01/12/25 12:16 Office Urine Clarity ? Last Edit by Veronica Castañeda on 01/12/25 12:16 Office Urine Glucose Negative Last Edit by Veronica Castañeda on 01/12/25 12:16 Office Urine Ketones Negative Last Edit by Veronica Castañeda on 01/12/25 12:16 Office Urine Bilirubin Negative Last Edit by Veronica Castañeda on 01/12/25 12:16 Office Urine Urobilinogen 0.2 mg/dL Last Edit by Veronica Castañeda on 01/12/25 12:16 Off Ur Spec [place] 1.015 Last Edit by Veronica Castañeda on 01/12/25 12:16 Office Urine pH 5.5 Last Edit by Veronica Castañeda on 01/12/25 12:16 Office Urine Protein Trace Last Edit by Veronica Castañeda on 01/12/25 12:16 Office Urine Blood Trace Last Edit by Veronica Castañeda on 01/12/25 12:16 Office Urine Blood Hemolyzed ? Last Edit by Veronica Castañeda on 01/12/25 12:16 Office Urine Nitrate Negative Last Edit by Veronica Castañeda on 01/12/25 12:16 Off Ur Leukocytes Positive Last Edit by Veronica Castañeda on 01/12/25 12:16 125 Veronica Maddy 01/12/25 12:16 Off Ur WBC Microscopic ? Last Edit by Veronica Castañeda on 01/12/25 12:16 Off Ur RBC Microscopic ? Last Edit by Veronica Castañeda on 01/12/25 12:16 Off Ur Bacteria Microscopic ? Last Edit by Veronica Castañeda on 01/12/25 12:16 Supplemental Info KUB reviewed, showing significant lower pole stone burden, nothing at the [facility] Coding Level of Care Code Off vis,est,level 4 Diagnoses Kidney stones N20.0 Urinary tract infection N39.0 Vaginal atrophy N95.2 Cystocele, midline N81.11 Urinary frequency R35.0 Assessment and Plan Assessment and Plan (1) Kidney stones: Status: Acute (2) Urinary tract infection: Status: Acute (3) Vaginal atrophy: Status: Acute (4) Cystocele, midline: Status: Acute (5) Urinary frequency: Status: Acute Orders: Orders POC UA Automated w/Microscopy Today N39.0 - Urinary tract infection, site not specified Plan schedule cystoscopy and left ureteroscopy, laser lithotripsy with stone basket extraction, left ureteral stent change urine culture The procedure, recovery and expectations were explained. The risks, benefits andalternatives were discussed, including but not limited to, [...] surgery/procedure as indicated on the consent form. Clinical Quality Measures Falls Risk Screening/Assistive Devices Have you fallen in the past year?: No 01/12/25 1249 <Electronically signed by Yanira Barahona MD> Date Yanira Barahona MD 01/28/25 0834 <Electronically signed by Yanira Barahona MD> Cosigner Signature (if applicable): CC: Dr. Yanira Barahona MD; Dr. Clyde Linda MD~ Signed ADDENDUM by Dr. Yanira Barahona MD on 01/28/25 at 0834 Addendum I have examined the patient and the H&P has been reviewed. There are no clinicalchanges since date of exam. 01/28/2534<Electronically signed by Yanira Barahona MD> Cosigner Signature (if applicable): cc: Dr. Yanira Barahona MD; Dr. Clyde Linda MD ~* Signed [facility] Work Phone: 1(745) 111-656810-09-2025 Consult note Author Naveen jolene [facility] Note Date/Time January 28, 2025 7: 54am [facility] Medical Records Department [address] [place] [address] Pre-Anesthesia Evaluation 01/28/25 0753 MR#: [id number] Acct: [id number] Name: SUELLEN LONG Rep #:[id number] : 1950 74 From: Naveen Abebe MD PCP: Dr. 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:[facility] Y Race: C Location: [place] [address] ASA Classification* ASA Classification ASA Classification: 2 Assessment & Plan Anesthesia* Anesthesia Assessment Anesthesia [...] anesthesia risk assessments. Anesthesia Type Anesthesia Type: MAC Anesthesia Focused Assessment* Airway Assessment Mouth opens: >3 cm Mallampati Score: II Labs Anesthesia Preop lab: CBC WBC, (4.4-11.0) 6.9 K/mm3 01/25/25, 10:48 RBC, (4.2-5.4) 4.57 M/mm3 01/25/25, 10:48 Hgb, (12.0-15.0) 13.5 g/dL 01/25/25, 10:48 Hct, (37-47) 41.4 % 01/25/25, 10:48 Plt Count, (150-450) 340 K/mm3 01/25/25, 10:48 CHEMISTRY Potassium, (3.3-5.1) 3.8 mmol/L 01/25/25, 10:48 Sodium, (133-145) 143 mmol/L 01/25/25, 10:48 Magnesium, (1.5-2.2) 2.2 mg/dL 10/28/24, 14:10 BUN, (4-19) 11 mg/dL 01/25/25, 10:48 Creatinine, (0.70-1.20) 0.60 mg/dL L 01/25/25, 10:48 Glucose, (70-99) 89 mg/dL 01/25/25, 10:48 TSH, (0.358-3.740) 1.030 uIU/mL 01/14/24, 14:41 COAG PT, (11.7-14.9) 13.8 SECONDS 05/01/20, 00:26 Pre-Assessment Diagnosis/Proposed Procedure Planned Operative Procedure(s): CYSTO LEFT URETEROSCOPY LASER LITHOTRIPSY STONE BASKET EXTRACTION Anesthesia History Anesthesia History - cash person: Anesthesia History - cash person Hx Hospitalization No 01/20/25 11:26 Any Problems With Anesthesia No 01/20/25 11:26 Cholinesterase deficiency No 01/20/25 11:26 You/Your Family Experience No 01/20/25 11:26 fever (hyperthermia) with Relationship Recent Exposure to Contagious No 11/26/24 11:16 Disease Does patient have nerve No 01/20/25 11:26 stimulator Patient instructed to have device shut off --Does patient have Pacemaker or ICD? When Was Last Pacemaker Check QUESTION #4 FULL TEXT: You/Your Family Experience fever (hyperthermia) with Anesthesia Last Oral Intake Last Oral intake: Last Oral Intake NPO since Meds taken in AM with sips of water? Meds patient instructed to take am of surgery PONV PONV - cash person: PONV - cash person Female Yes 01/20/25 11:26 HX of Motion Sickness No 01/20/25 11:26 HX of N/V After Surgery No 01/20/25 11:26 Non-Smoker Yes 01/20/25 11:26 Duration of Surgery greater Yes 01/20/25 11:26 than 60 minutes Number of Risk Factors 3 01/20/25 11:26 PONV Score Moderate Risk 01/20/25 11:26 Height & Weight Height & Weight: Anesthesia: Height & Weight Height 5 ft 01/12/25 12:02 Respiratory Assessment Respiratory Assessment - cash person: Respiratory Tract Infection Hx - cash person Hx Respiratory Tract Infection No 01/20/25 11:26 STOP Sleep Apnea STOP Sleep Apnea - cash person: STOP Sleep Apnea - cash person Hx Hypertension Yes: CONTROLLED WITH MED 01/20/25 11:26 Hx Sleep Apnea No 01/20/25 11:26 CPAP No 01/20/25 11:26 BIPAP Do you snore loudly (louder No 01/20/25 11:26 than talking or can be heard Do you often feel tired/ No 01/20/25 11:26 fatigued/ sleepy during daytime? Has anyone observed you stop No 01/20/25 11:26 breathing during sleep? STOP Results Negative 01/20/25 11:26 QUESTION #5 FULL TEXT : Do you snore loudly (louder than talking or can be heard through closed doors)? 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 Specify any problems Hx of Preganancy in last 3 No 01/20/25 11:26 Months Nurse Filling Out Transfusion DSCHRIBER 01/20/25 11:26 & Questions: Date: 01/20/25 01/20/25 11:26 Time: 11:01/20/25 11:26 Patient unable to answer at this time (ie. confused, unrespo /Reproduction History /Reproductive History - cash person: /Reproductive Hx- cash person Hx Now No 01/20/25 11:26 Gestational Age (in weeks): EDC: Hx Hx Para Hx Section SAB No 01/20/25 11:26 Active Medications Active Medications: Current Medications Generic Name Dose Route Start Last Admin Trade Name Freq PRN Reason Stop Dose Admin Cefazolin Sodium 2 gm/ Sodium 110 mls @ 200 mls/hr 01/28/25 09:20 Chloride IV 01/28/25 09:52 INTRAOP ONE Lactated Ringer's 1,000 mls @ 15 mls/hr 01/28/25 08:00 IV .Q48H HUSAM PFSH Medical History Hypertension Osteoporosis Degenerative disc disease Coagulation disorder Presence of pessary Loss of hearing Post-menopausal Bladder disease Arthritis High cholesterol Back pain History of hiatal hernia Gastric reflux History of edema History of echocardiogram Wears glasses History of GI bleed Former smoker Anemia DVT, bilateral lower limbs Home Medications ?Medication [...] 5 mg PO QHS 11/12/24 Unknown History ziozqtul-tlql-oxfg 8 mg-folic 400 1 tab PO DAILY 11/12 Unknown History mcg-K 50 mcg-lutein 300 mcg tablet (Centrum Silver Women) rosuvastatin 10 mg tablet 10 mg PO QHS 11/12/24 Unknow n History estradiol 0.01% (0.1 mg/gram) 1 g vaginal 3XW 3 months #42.5 11/20/24 Unknown Rx vaginal cream grams Allergy/AdvReac Type Severity Reaction Status Date / Time No Known Allergies Allergy Verified 01/20/25 11:21 Family History Father Hypertension Mother CVA (cerebral vascular accident) Other Cancer Surgical History Hx of cystoscopy H/O: hysterectomy History of ankle surgery H/O [...] and no additional complaints, except as documented. 01/28/25 7518 <Electronically signed by Naveen Abebe MD > Date _ Naveen Abebe MD Cosigner Signature: Date CC: ~ Signed [facility] Work Phone: [phone]) 398-251310-09-2025 History and physical note [facility] Medical Records Department [address] [place] [address] History & Physical Exam 01/28/25 0833 MR#: [id number] Acct: [id number] Name: SUELLEN LONG Rep #:[id number] : 1950 74 From: Yanira Dominguez PCP: Dr. 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:[facility] Location: [place] [address] History and Physical Date of Admission: 01/28/25 Date of Service: 01/12/25 MR#: [id number] Acct: [id number] Name: SUELLEN LONG Rep #: [id number] : 1950 Provider: Dr. Yanira Barahona MD Age/Sex: 74/F Location: [facility] Status: Signed Intake Vital Signs 11/26/2510:16 01/13/2512:02 Height 5 ft 5 ft Weight: 140 lb BMI 27.3 BP 126/78 H Pulse 62 Temp 98.1 F Intake Visit Reasons: KUB BEFORE APPT. 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 Is patient in pain?: No Allergies No Known Allergies Allergy (Verified 11/26/24 11:15) Medications ?Medication ?Instructions ?Recorded ?Confirmed ?Type omeprazole 20 mg delayed 20 mg PO DAILY ##90 07/19/20 01/12/25 Rx release,disintegrating tablet alendronate 70 mg tablet (Fosamax) 70 mg PO QWEEK 08/12/23 01/12/25 History calcium carbonate (Calcium 600) 600 mg PO DAILY 08/12/23 01/12/25 Histor y cholecalciferol (vitamin D3) 125 125 mcg PO DAILY 08/12/23 01/12/25 Histo ry mcg (5,000 unit) capsule amlodipine 5 mg tablet 5 mg PO QHS 11/12/24 01/12/25 History azlyxkmk-wgvn-apqe 8 mg-folic 400 1 tab PO DAILY 11/12/24 01/12/25 History mcg-K 50 mcg-lutein 300 mcg tablet (Centrum Silver Women) rosuvastatin 10 mg tablet 10 mg PO QHS 11/12/24 01/12/25 History estradiol 0.01% (0.1 mg/gram) 1 g vaginal 3XW 3 months #42.5 11/20/24 01/12/25 Rx vaginal cream grams levofloxacin 500 mg tablet 500 mg PO QDAY #7 tabs 11/23/24 01/12/25 Rx ondansetron 4 mg disintegrating 4 mg PO Q8H PRN nausea and 11/26/2412/22 Rx tablet vomiting #10 tabs ondansetron 4 mg disintegrating 4 mg PO Q8H PRN nausea and 11/26/2412/22 Rx tablet vomiting #10 tabs oxycodone-acetaminophen 5 mg-325 1 tab PO Q8H PRN pain 3 days #10 5 01/12/25 Rx mg tablet tabs phenazopyridine 200 mg tablet 200 mg PO TID PRN pain #30 tabs 11/26/24 01/12/25 Rx phenazopyridine 200 mg tablet 200 mg PO TID #30 tabs 11/26/24 01/12/25 Rx (Pyridium) Have you fallen in the past year?: No PFSH Medical History Cystocele, midline Vaginal atrophy [...] home: Yes HPI HPI Urology Chief Complaint: possible stent removal Details: SUELLEN LONG, is a 74 F. She is here for for follow-up after cystoscopy with left ureteral stent and leftrenal extracorporalshockwave lithotripsy. She is feeling well. There is no pain, hematuria, dysuria, fever or other sign of concern. She doeshave some urgency and incontinence. No issues with bowel movements and her appetite is good. She has not passed any significant stone fragments. ROS Const Constitutional: No chills, fatigue, fever(s), [...] Endocrine: No fatigue, increased thirst/drinking or weight change Aller/Imm Allergy/Immunologic: No itchy eyes or wheezing Ryne/Lymp Hematologic/Lymphatic: No easy bleeding, easy bruising or enlarged lymph nodes Exam Const General: cooperative, healthy appearing, comfortable and no acute distress [facility] Head: normocephalic and atraumatic Ears: hearing grossly normal bilaterally and external ears normal Nose: external nose normal Eyes General: appearance normal, both eyes and all related structures Neck Neck: normal visual inspection and trachea midline Chest Chest palpation & inspection: normal inspection of the chest Resp Effort & Inspection: normal respiratory effort, able to speak in complete sentences and symmetric chest movement Cardio Rate: regular rate GI Inspection: normal to inspection Palpation: soft and nontender General: No CVA tenderness Skin General: no rashes or lesions noted Neuro General: patient alert, patient awake, patient oriented x3 and CN's II-XI intactbilaterally Extrem General: normal to inspection Psych Appearance: grossly normal and well kempt Mental Status: mental status grossly normal Results POC Urinalysis w/Micro Office Urine Color YELLOW Last Edit by Veronica Castañeda on 01/12/25 12:16 Office Urine Clarity ? Last Edit by Veronica Castañeda on 01/12/25 12:16 Office Urine Glucose Negative Last Edit by Veronica Castañeda on 01/12/25 12:16 Office Urine Ketones Negative Last Edit by Veronica Castañeda on 01/12/25 12:16 Office Urine Bilirubin Negative Last Edit by Veronica Castañeda on 01/12/25 12:16 Office Urine Urobilinogen 0.2 mg/dL Last Edit by Veronica Castañeda on 01/12/25 12:16 Off Ur Spec Delanson 1.015 Last Edit by Veronica Castañeda on 01/12/25 12:16 Office Urine pH 5.5 Last Edit by Veronica Dotsonon on 01/12/25 12:16 Office Urine Protein Trace Last Edit by Veronica Castañeda on 01/12/25 12:16 Office Urine Blood Trace Last Edit by Veronica Castañeda on 01/12/25 12:16 Office Urine Blood Hemolyzed ? Last Edit by Veronica Castañeda on 01/12/25 12:16 Office Urine Nitrate Negative Last Edit by Veronica Castañeda on 01/12/25 12:16 Off Ur Leukocytes Positive Last Edit by Veronica Castañeda on 01/12/25 12:16 125 Veronica Dotsonon 01/12/25 12:16 Off Ur WBC Microscopic ? Last Edit by Veronica Dotsonon on 01/12/25 12:16 Off Ur RBC Microscopic ? Last Edit by Veronica Castañeda on 01/12/25 12:16 Off Ur Bacteria Microscopic ? Last Edit by Veronica Castañeda on 01/12/25 12:16 Supplemental Info KUB reviewed, showing significant lower pole stone burden, nothing at the [facility] Coding Level of Care Code Off vis,est,level 4 Diagnoses Kidney stones N20.0 Urinary tract infection N39.0 Vaginal atrophy N95.2 Cystocele, midline N81.11 Urinary frequency R35.0 Assessment and Plan Assessment and Plan (1) Kidney stones: Status: Acute (2) Urinary tract infection: Status: Acute (3) Vaginal atrophy: Status: Acute (4) Cystocele, midline: Status: Acute (5) Urinary frequency: Status: Acute Orders: Orders POC UA Automated w/Microscopy Today N39.0 - Urinary tract infection, site not specified Plan schedule cystoscopy and left ureteroscopy, laser lithotripsy with stone basket extraction, left ureteral stent change urine culture The procedure, recovery and expectations were explained. The risks, benefits andalternatives were discussed, including but not limited to, [...] surgery/procedure as indicated on the consent form. Clinical Quality Measures Falls Risk Screening/Assistive Devices Have you fallen in the past year?: No 01/12/25 1249 Date Yanira Barahona MD 01/28/25833 Cosigner Signature (if applicable): CC: Dr. Yanira Barahona MD; Dr. Clyde Linda MD~ Signed ADDENDUM by Dr. Yanira Barahona MD on 01/28/25 at 0834 Addendum I have examined the patient and the H&P has been reviewed. There are no clinicalchanges since date of exam. 01/28/25833 Cosigner Signature (if applicable): cc: Dr. Yanira Barahona MD; Dr. Clyde Linda MD ~* Signed [facility]10-09-2025 [facility] Medical Records Department [address] [place] [id number] History Physical Exam 01/28/25832 MR#: [id number] Acct: [id number] Name: SUELLEN LONG Rep #: [id number] : 1950 74 From: Yanira Barahona MD PCP: Dr. 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:[facility] Location: [place] [address] History and Physical Date of Admission: 01/28/25 Date of Service: 01/12/25 MR#: [id number] Acct: [id number] Name: ETHANSUELLENSLOAN Rep #: [id number] : 1950 Provider: Dr. Yanira Barahona MD Age/Sex: 74/F Location: [facility] Status: Signed Intake Vital Signs 11/26/2510:16 01/13/2512:02 Height 5 ft 5 ft Weight: 140 lb BMI 27.3 BP 126/78 H Pulse 62 Temp 98.1 F Intake Visit Reasons: KUB BEFORE APPT. 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 Is patient in pain?: No Allergies No Known Allergies Allergy (Verified 11/26/24 11:15) Medications ???Medication ???Instructions ???Recorded ???Confirmed ???Type omeprazole 20 mg delayed 20 mg PO DAILY ##90 07/19/20 01/12/25 Rx release,disintegrating tablet alendronate 70 mg tablet (Fosamax) 70 mg PO QWEEK 08/12/23 01/12/25 History calcium carbonate (Calcium 600) 600 mg PO DAILY 08/12/23 01/12/25 History cholecalciferol (vitamin D3) 125 125 mcg PO DAILY 08/12/23 01/12/25 History mcg (5,000 unit) capsule amlodipine 5 mg tablet 5 mg PO QHS 11/12/24 01/12/25 History hwtbjfpe-bvpl-eqlq 8 mg-folic 400 1 tab PO DAILY 11/12/24 01/12/25 History mcg-K 50 mcg-lutein 300 mcg tablet (Centrum Silver Women) rosuvastatin 10 mg tablet 10 mg PO QHS 11/12/24 01/12/25 History estradiol 0.01% (0.1 mg/gram) 1 g vaginal 3XW 3 months #42.5 11/20/24 01/12/25 R x vaginal cream grams levofloxacin 500 mg tablet 500 mg PO QDAY #7 tabs 11/23/24 01/12/25 Rx ondansetron 4 mg disintegrating 4 mg PO Q8H PRN nausea and 11/26/24 01/12/25 Rx tablet vomiting #10 tabs ondansetron 4 mg disintegrating 4 mg PO Q8H PRN nausea and 11/26/24 01/12/25 Rx tablet vomiting #10 tabs oxycodone-acetaminophen 5 mg-325 1 tab PO Q8H PRN pain 3 days #10 11/26/24 01/12/25 Rx mg tablet tabs phenazopyridine 200 mg tablet 200 mg PO TID PRN pain #30 tabs 11/26/24 01/12/25 Rx phenazopyridine 200 mg tablet 200 mg PO TID #30 tabs 11/26/24 01/12/25 Rx (Pyridium) Have you fallen in the past year?: No PFSH Medical History Cystocele, midline Vaginal atrophy [...] home: Yes HPI HPI Urology Chief Complaint: possible stent removal Details: SUELLEN LONG, is a 74 F. She is here for for follow-up after cystoscopy with left ureteral stent and left renal extracorporal shockwave lithotripsy. She is feeling well. There is no pain, hematuria, dysuria, fever or other sign of concern. She does have some urgency and incontinence. No issues with bowel movements and her appetite is good. She has not passed any significant stone fragments. ROS Const Constitutional: No chills, fatigue, fever(s), headache(s), night sweats, weakness, weight change, abnormal sleep pattern or change in appetite Eyes Eyes: No change in vision ENT ENT: No headache(s) or dry mouth Resp Respiratory: No cough, chest congestion, shortness of breath or wheezing Cardio Cardiology: Positive for other (No chest pain.); No shortness of breath, irregular (more content not included)...[facility]10-09-2025 Consult note [facility] Medical Records Department [address] [place] [address] Pre-Anesthesia Evaluation 01/28/25 0753 MR#: [id number] Acct: [id number] Name: SUELLEN LONG Rep #:[id number] : 1950 74 From: Naveen Abebe MD PCP: Dr. 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:RE G SDC Y Race: C Location: [place] [address] ASA Classification* ASA Classification ASA Classification: 2 Assessment & Plan Anesthesia* Anesthesia Assessment Anesthesia [...] anesthesia risk assessments. Anesthesia Type Anesthesia Type: MAC Anesthesia Focused Assessment* Airway Assessment Mouth opens: >3 cm Mallampati Score: II Labs Anesthesia Preop lab: CBC WBC, (4.4-11.0) 6.9 K/mm3 01/25/25, 10:48 RBC, (4.2-5.4) 4.57 M/mm3 01/25/25, 10:48 Hgb, (12.0-15.0) 13.5 g/dL 01/25/25, 10:48 Hct, (37-47) 41.4 % 01/25/25, 10:48 Plt Count, (150-450) 340 K/mm3 01/25/25, 10:48 CHEMISTRY Potassium, (3.3-5.1) 3.8 mmol/L 01/25/25, 10:48 Sodium, (133-145) 143 mmol/L 01/25/25, 10:48 Magnesium, (1.5-2.2) 2.2 mg/dL 10/28/24, 14:10 BUN, (4-19) 11 mg/dL 01/25/25, 10:48 Creatinine, (0.70-1.20) 0.60 mg/dL L 01/25/25, 10:48 Glucose, (70-99) 89 mg/dL 10/06/25, 10:48 TSH, (0.358-3.740) 1.030 uIU/mL 01/14/24, 14:41 COAG PT, (11.7-14.9) 13.8 SECONDS 05/01/20, 00:26 Pre-Assessment Diagnosis/Proposed Procedure Planned Operative Procedure(s): CYSTO LEFT URETEROSCOPY LASER LITHOTRIPSY STONE BASKET EXTRACTION Anesthesia History Anesthesia History - cash person: Anesthesia History - cash person Hx Hospitalization No 01/20/25 11:26 Any Problems With Anesthesia No 01/20/25 11:26 Cholinesterase deficiency No 01/20/25 11:26 You/Your Family Experience No 01/20/25 11:26 fever (hyperthermia) with Relationship Recent Exposure to Contagious No 11/26/24 11:16 Disease Does patient have nerve No 01/20/25 11:26 stimulator Patient instructed to have device shut off --Does patient have Pacemaker or ICD? When Was Last Pacemaker Check QUESTION #4 FULL TEXT: You/Your Family Experience fever (hyperthermia) with Anesthesia Last Oral Intake Last Oral intake: Last Oral Intake NPO since Meds taken in AM with sips of water? Meds patient instructed to take am of surgery PONV PONV - cash person: PONV - cash person Female Yes 01/20/25 11:26 HX of Motion Sickness No 01/20/25 11:26 HX of N/V After Surgery No 01/20/25 11:26 Non-Smoker Yes 01/20/25 11:26 Duration of Surgery greater Yes 01/20/25 11:26 than 60 minutes Number of Risk Factors 3 01/20/25 11:26 PONV Score Moderate Risk 01/20/25 11:26 Height & Weight Height & Weight: Anesthesia: Height & Weight Height 5 ft 01/12/25 12:02 Respiratory Assessment Respiratory Assessment - cash person: Respiratory Tract Infection Hx - cash person Hx Respiratory Tract Infection No 01/20/25 11:26 STOP Sleep Apnea STOP Sleep Apnea - cash person: STOP Sleep Apnea - cash person Hx Hypertension Yes: CONTROLLED WITH MED 01/20/25 11:26 Hx Sleep Apnea No 01/20/25 11:26 CPAP No 01/20/25 11:26 BIPAP Do you snore loudly (louder No 01/20/25 11:26 than talking or can be heard Do you often feel tired/ No 01/20/25 11:26 fatigued/ sleepy during daytime? Has anyone observed you stop No 01/20/25 11:26 breathing during sleep? STOP Results Negative 01/20/25 11:26 QUESTION #5 FULL TEXT : Do you snore loudly (louder than talking or can be heard through closeddoors)? 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 Specify any problems Hx of Preganancy in last 3 No 01/20/25 11:26 Months Nurse Filling Out Transfusion DSCHRIBER 01/20/25 11:26 & Questions: Date: 01/20/25 01/20/25 11:26 Time: 11:28 01/20/25 11:26 Patient unable to answer at this time (ie. confused, unrespo /Reproduction History /Reproductive History - cash person: /Reproductive Hx- cash person Hx Now No 01/20/25 11:26 Gestational Age (in weeks): EDC: Hx Hx Para Hx Section SAB No 01/20/25 11:26 Active Medications Active Medications: Current Medications Generic Name Dose Route Start Last Admin Trade Name Freq PRN Reason Stop Dose Admin Cefazolin Sodium 2 gm/ Sodium 110 mls @ 200 mls/hr 01/28/25 09:20 Chloride IV 01/28/25 09:52 INTRAOP ONE Lactated Ringer's 1,000 mls @ 15 mls/hr 01/28/25 08:00 IV .Q48H HUSAM PFSH Medical History Hypertension Osteoporosis Degenerative disc disease Coagulation disorder Presence of pessary Loss of hearing Post-menopausal Bladder disease Arthritis High cholesterol Back pain History of hiatal hernia Gastric reflux History of edema History of echocardiogram Wears glasses History of GI bleed Former smoker Anemia DVT, bilateral lower limbs Home Medications ?Medication [...] 5 mg PO QHS 11/12/24 Unknown History ocjrujqq-oepn-dxcu 8 mg-folic 400 1 tab PO DAILY 11/12 Unknown History mcg-K 50 mcg-lutein 300 mcg tablet (Centrum Silver Women) rosuvastatin 10 mg tablet 10 mg PO QHS 11/12/24 Unknow n History estradiol 0.01% (0.1 mg/gram) 1 g vaginal 3XW 3 months #42.5 11/20/24 Unknown Rx vaginal cream grams Allergy/AdvReac Type Severity Reaction Status Date / Time No Known Allergies Allergy Verified 01/20/25 11:21 Family History Father Hypertension Mother CVA (cerebral vascular accident) Other Cancer Surgical History Hx of cystoscopy H/O: hysterectomy History of ankle surgery H/O [...] and no additional complaints, except as documented. 01/28/25 0754 > Date _ Naveen Abebe MD Cosigner Signature: Date CC: ~ Signed [facility]09-24-2025 Radiology Diagnostic study note [facility] Imaging Services [address] [place] [address] Abdomen Single View MR#: [id number] Acct: [id number] Name: SUELLEN LONG Rep #: [id number] : 1950 F 74 From: Michael Huffman MD PCP: Dr. 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: RE G CLI Study:Abdomen Single View Date of Exam: 01/12/25 Exam# [id number] Ordering Dr: Yanira Barahona MD PROCEDURE: ABDOMEN SINGLE VIEW 01/12/2025 REASON FOR EXAM: KUB- KIDNEY STONES TECHNIQUE: Procedure Code: RADABD Modality: DX Procedure: ABDOMEN SINGLE VIEW COMPARISON: KUB, 09/30/2024. FINDINGS: There is a nonobstructive bowel gas pattern. There is a left-sided double-J ureteral stent in good position. There is a cluster of calcifications projected over the lower pole of the left kidney measuring 2.6x 1.3 cm in total. There are no calcifications projected along the path of the stent. There is a vaginal cerclage noted. There is severe multilevel degenerative disc disease of the lower thoracic and lumbar spine. There is mild dextroscoliosis of the lumbar spine. RAD/Abdomen Single View IMPRESSION: 1. Left nephrolithiasis. 2. Left-sided double-J ureteral stent in good position. 3. Other findings as noted. Reading Location: [facility] CC: Dr. Yanira Barahona MD; Dr. Clyde Linda MD ~ Manager Front: Signed [facility] Work Phone: [phone]) 131-662309-23-2025 [facility] [address], [address] [place] [id number] OFFICE VISIT Date of Service: 01/12/25 MR#: [id number] Acct: [id number] Name: SUELLEN LONG Rep #: [id number] : 1950 Provider: Dr. Tr Barahona MD Age/Sex: 74/F Location: [facility] Status: Signed Intake Vital Signs 11/26/24 11:16 01/12/25 12:02 Height 5 ft 5 ft Weight: 140 lb BMI 27.3 BP 126/78 H Pulse 62 Temp 98.1 F Intake Visit Reasons: KUB BEFORE APPT. 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 Is patient in pain?: No Allergies No Known Allergies Allergy (Verified 11/26/24 11:15) Medications ?Medication ?Instructions ?Recorded ?Confirmed ?Type omeprazole 20 mg delayed 20 mg PO DAILY ##90 07/19/20 01/12/25 Rx release,disintegrating tablet alendronate 70 mg tablet (Fosamax) 70 mg PO QWEEK 07/2201/12/25 History calcium carbonate (Calcium 600) 600 mg PO DAILY 01/12/25 History cholecalciferol (vitamin D3) 125 125 mcg PO DAILY 07/2201/12/25 History mcg (5,000 unit) capsule amlodipine 5 mg tablet 5 mg PO QHS 11/12/24 5 History pukzdmie-xybs-euxj 8 mg-folic 400 1 tab PO DAILY 11/1201/12/25 History mcg-K 50 mcg-lutein 300 mcg tablet (Centrum Silver Women) rosuvastatin 10 mg tablet 10 mg PO QHS 11/12/24 History estradiol 0.01% (0.1 mg/gram) 1 g vaginal 3XW 3 months #42.5 11/20/24 01/12/25 Rx vaginal cream grams levofloxacin 500 mg tablet 500 mg PO QDAY #7 tabs 08/08/1401/12/25 Rx ondansetron 4 mg disintegrating 4 mg PO Q8H PRN nausea and 11/26/24 01/12/25 Rx tablet vomiting #10 tabs ondansetron 4 mg disintegrating 4 mg PO Q8H PRN nausea and 11/26/24 01/12/25 Rx tablet vomiting #10 tabs oxycodone-acetaminophen 5 mg-325 1 tab PO Q8H PRN pain 3 days #10 11/26/24 01/12/25 Rx mg tablet tabs phenazopyridine 200 mg tablet 200 mg PO TID PRN pain # 30 tabs 11/26/24 01/12/25 Rx phenazopyridine 200 mg tablet 200 mg PO TID #30 tabs 0 11/26/24 01/12/25 Rx (Pyridium) Have you fallen in the past year?: No PFSH Medical History Cystocele, midline Vaginal atrophy [...] you feel safe at home: Yes HPI [facility] Urology Chief Complaint: possible stent removal Details: SUELLEN LONG, is a 74 F. She is here for for follow-up after cystoscopy with left ureteral stent and leftrenal extracorporalshockwave lithotripsy. She is feeling well. There is no pain, hematuria, dysuria, fever or other sign of concern. She doeshave some urgency and incontinence. No issues with bowel movements and her appetite is good. She has not passed any significant stone fragments. ROS Const Constitutional: No chills, fatigue, fever(s), [...] Endocrine: No fatigue, increased thirst/drinking or weight change Aller/Imm Allergy/Immunologic: No itchy eyes or wheezing Ryne/Lymp Hematologic/Lymphatic: No easy bleeding, easy bruising or enlarged lymph nodes Exam Const General: cooperative, healthy appearing, comfortable and no acute distress [facility] Head: normocephalic and atraumatic Ears: hearing grossly normal bilaterally and external ears normal Nose: external nose normal Eyes General: appearance normal, both eyes and all related structures Neck Neck: normal visual inspection and trachea midline Chest Chest palpation & inspection: normal inspection of the chest Resp Effort & Inspection: normal respiratory effort, able to speak in complete sentences and symmetric chest movement Cardio Rate: regular rate GI Inspection: normal to inspection Palpation: soft and nontender General: No CVA tenderness Skin General: no rashes or lesions noted Neuro General: patient alert, patient awake, patient oriented x3 and CN's II-XI intactbilaterally Extrem General: normal to inspection Psych Appearance: grossly normal and well kempt Mental Status: mental status grossly normal Results POC Urinalysis w/Micro Office Urine Color YELLOW Last Edit by Veronicalukasz Castañeda on 01/12/25 12:16 Office Urine Clarity Last Edit by Veronica Castañeda on 01/12/25 12:16 Office Urine Glucose Negative Last Edit by Veronica Castañeda on 01/12/25 12:16 Office Urine Ketones Negative Last Edit by Veronica Castañeda on 01/12/25 12:16 Office Urine Bilirubin Negative Last Edit by Veronica Castañeda on 01/12/25 12:16 Office Urine Urobilinogen 0.2 mg/dL Last Edit by Veronica Castañeda on 01/12/25 12:16 Off Ur Spec Delanson 1.015 Last Edit by Veronica Castañeda on 01/12/25 12:16 Office Urine pH 5.5 Last Edit by Veronica Castañeda on 01/12/25 12:16 Office Urine Protein Trace Last Edit by Veronica Castañeda on 01/12/25 12:16 Office Urine Blood Trace Last Edit by Veronica Castañeda on 01/12/25 12:16 Office Urine Blood Hemolyzed Last Edit by Veronica Castañeda on 01/12/25 12:16 Office Urine Nitrate Negative Last Edit by Veronica Castañeda on 01/12/25 12:16 Off Ur Leukocytes Positive Last Edit by Veronica Castañeda on 01/12/25 12:16 125 Veronica Castañeda 01/12/25 12:16 Off Ur WBC Microscopic Last Edit by Veronica Castañeda on 01/12/25 12:16 Off Ur RBC Microscopic Last Edit by Veronica Castañeda on 01/12/25 12:16 Off Ur Bacteria Microscopic Last Edit by Veronica Castañeda on 01/12/25 12:16 Supplemental Info KUB reviewed, showing significant lower pole stone burden, nothing at the [facility] Coding Level of Care Code Off vis,est,level 4 Diagnoses Kidney stones N20.0 Urinary tract infection N39.0 Vaginal atrophy N95.2 Cystocele, midline N81.11 Urinary frequency R35.0 Assessment and Plan Assessment and Plan (1) Kidney stones: Status: Acute (2) Urinary tract infection: Status: Acute (3) Vaginal atrophy: Status: Acute (4) Cystocele, midline: Status: Acute (5) Urinary frequency: Status: Acute Orders: Orders POC UA Automated w/Microscopy Today N39.0 - Urinary tract infection, site not specified Plan schedule cystoscopy and left ureteroscopy, laser lithotripsy with stone basket extraction, left ureteral stent change urine culture The procedure, recovery and expectations were explained. The risks, benefits andalternatives were discussed, including but not limited to, [...] surgery/procedure as indicated on the consent form. Clinical Quality Measures Falls Risk Screening/Assistive Devices Have you fallen in the past year?: No 01/12/25 1249 > Date _ Yanira Barahona MD [facility] Signature: Date (if applicable) CC: ~ [facility]08-14-2025 [facility] Medical Records Department [address] [place] [address] History Physical Exam 12/03/2406 MR#: [id number] Acct: [id number] Name: SUELLEN LONG Rep #: [id number] : 1950 74 From: Yanira Barahona MD PCP: Dr. 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:[facility] Location: [facility] History and Physical Date of Admission: 11/26/24 Intake Vital Signs 10/07/2407:00 11/21/2515:22 Height 5 ft 5 ft Weight: 140 lb BMI 27.3 BP 138/90 H Pulse 62 Intake Visit Reasons: PRE OP URINE/SIGNED CONSENT Chief Complaint: preoperative visit with urine and consent Air Conditioning Engineer Required: No Accompanied by: Self Is patient [...] 5 mg PO QHS 11/12/24 11/20/24 History kngxkpon-ehvm-tyjr 8 mg-folic 400 1 tab PO DAILY [...] or weight del real (more content not included)...[facility]08-07-2025 Consult note [facility] Medical Records Department [address] [place] [place] [address] Anesthesia Postop Eval II 11/26/24 1512 MR#: [id number] Acct: [id number] Name: SUELLEN LONG Rep #:[id number] : 1950 74 From: Pankaj James MD PCP: Dr. 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:RE G SDC Y Race: C Location: [place] [address] Anesthesia Postop Eval I Sum Postop Eval Completion status Anesthesia document: Postop Eval 1 completed: Yes Anesthesia Postop Eval I Summary Anesthesia Postop Eval I Summary: Anesthesia Postop Eval I: Assessment Summary Airway patent Yes 11/26/24 14:20 FOOD CHECKERS AND CASHIERS SUPERVISOR.MDOT Spontaneous unlabored Yes 11/26/24 14:20 FOOD CHECKERS AND CASHIERS SUPERVISOR.MDOT respirations Mental status Awake,Calm 11/26/24 14:20 FOOD CHECKERS AND CASHIERS SUPERVISOR.MDOT nausea No 11/26/24 14:20 FOOD CHECKERS AND CASHIERS SUPERVISOR.MDOT Vomiting No 11/26/24 14:20 FOOD CHECKERS AND CASHIERS SUPERVISOR.MDOT Anesthesia Postop Eval I: Fluid Summary Crystalloid volume administer 800 11/26/24 14:20 FOOD CHECKERS AND CASHIERS SUPERVISOR.MDOT (ml) Colloids volume administered ( ml) Blood Product volume administered (ml) Total IV fluid infused 800 11/26/24 14:20 FOOD CHECKERS AND CASHIERS SUPERVISOR.MDOT Anesthesia Postop Eval I: Summary Notes Anesthesia Complication No 11/26/24 14:20 FOOD CHECKERS AND CASHIERS SUPERVISOR.MDOT Anesthesia Complication Comment: Post-operative progress note Anesthesia: Postop Eval II Evaluation Mental status: Awake Pain Level: 0 nausea: No Vomiting: No 11/26/24 1512 MD> Date _ Pankaj James MD Cosigner Signature: Date CC: ~ Signed [facility]08-07-2025 Discharge summary Author Yanira Barahona [facility] Note Date/Time November 26, 2024 12: 51pm [facility] Medical Records Department [address] [place] [address] Instructions for Home/Discharge Instructions 11/26/24 1249 MR#: [id number] Acct: [id number] Name: SUELLEN LONG Rep #:[id number] : 1950 74 From: Yanira Dominguez PCP: Dr. 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:RE G [facility] Discharge Instructions Diet Discharge Diet: No restrictions [...] Care Provider: Clyde Linda Instructions Print Language: Swazi Discharge Orders/Prescriptions Prescriptions: New phenazopyridine 200 mg [...] CC: Dr. Clyde Linda MD ~ Signed [facility] Work Phone: 1(137) 702-311008-07-2025 Consult note [facility] Medical Records Department [address] [place] [address] Anesthesia Postop Eval I 11/26/24 1419 MR#: [id number] Acct: [id number] Name: SUELLEN LONG Rep #:[id number] : 1950 74 From: Indra CHRISTIANSON PCP: Dr. 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:AL WILKINS Y Race: C Location: [place] [address] Anesthesia: Postop Eval I Current Vital Signs [...] Postop Eval 1 completed: Yes 11/26/24 1420 FOOD CHECKERS AND CASHIERS SUPERVISOR> Date _ Indra Karinalindsay FOOD CHECKERS AND CASHIERS SUPERVISOR Cosigner Signature: Date CC: ~ Signed [facility]08-07-2025 Procedure note [facility] Medical Records Department [address] [place] [address] Operative Report 11/26/24 1251 MR#: [id number] Acct: [id number] Name: SUELLEN LONG Rep #:[id number] : 1950 74 From: Yanira Dominguez PCP: Dr. 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:AL Duran [facility] Location: [address] Operative Report (Standard) Operative Information Date of Procedure: 08/07/25 Pre-Operative Diagnosis: Left renal and ureteropelvic junction stones and hydronephrosis Post-Operative Diagnosis: Same Surgery/Procedure Performed: Cystoscopy with left ureteral stent insertion, leftrenal extracorporalshockwave lithotripsy glass silverer: No Type of Anesthesia: General RN Documented Start/Stop Times: Operation Date: 11/26/24 12:05 Case Time Into Pre-Op 11/26/24 10:40 Out of Pre-Op 11/26/24 12:45 Anesthesia Start 11/26/24 12:55 Into Room 11/26/24 12:55 Procedure Start 11/26/24 13:07 Procedure End 11/26/24 14:11 Procedure Start Time: 13:07 Procedure Stop Time: 14:11 Select all DRAINS/GRAFTS/IMPLANTS that apply: Drains Drain details: 6 Citizen Of [place] by 22 cm JJ stent Estimated Blood [...] pelvis as seen on fluoroscopy. A 6 Citizen [place] 22 cm JJ stent was placed over [...] Barahona MD; Dr. Clyde Linda MD~ Signed [facility]08-07-2025 Consult note Author Pankaj James [facility] Note Date/Time November 26, 2024 11: 18am [facility] Medical Records Department [address] [place] [place] [address] Pre-Anesthesia Evaluation 11/26/24 1116 MR#: [id number] Acct: [id number] Name: SUELLEN LONG Rep #:[id number] : 1950 74 From: Pankaj James MD PCP: Dr. 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:RE G [facility] Y Race: C Location: [place] [address] ASA Classification* ASA Classification ASA Classification: 3 [...] STENT INSERTION Anesthesia History Anesthesia History - cash person: Anesthesia History - cash person Hx Hospitalization No 11/12/24 10:47 Any Problems [...] take am of surgery PONV PONV - cash person: PONV - cash person Female Yes 11/12/24 10:47 HX of Motion [...] 11/20/24 16:22 Respiratory Assessment Respiratory Assessment - cash person: Respiratory Tract Infection Hx - cash person Hx Respiratory Tract Infection No 11/12/24 10:47 STOP Sleep Apnea STOP Sleep Apnea - cash person: STOP Sleep Apnea - cash person Hx Hypertension Yes: CONTROLLED WITH MED 11/12/24 [...] Tobacco Use History Tobacco Use History - cash person: Tobacco Use History - cash person Tobacco Use Smoking Status Former smoker 11/16/24 16:18 Hx Tobacco Use No 11/12/24 10:47 Years Smoking Packs Smoked per Day Smoking Cessation Date was No - quit smoking greater 11/12/24 10:47 within the last 15 years than 15 years ago Hx Smoking Cessation Date 09/20/76 11/12/24 10:47 Hx Smoking Cessation No 11/12/24 10:47 Counseling Hematologic Medial History Hematologic Hx - cash person: 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 11/26/24 1118 <Electronically signed by Pankaj James MD> Date _ Pankaj James MD Cosigner Signature: Date CC: ~ Signed [facility] Work Phone: 1(114) 468-589508-07-2025 Discharge summary [facility] Medical Records Department [address] [place] [address] Instructions for Home/Discharge Instructions 11/26/24 1249 MR#: [id number] Acct: [id number] Name: SUELLEN LONG Rep #:[id number] : 1950 74 From: Yanira Dominguez PCP: Dr. 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:RE G [facility] Discharge Instructions Diet Discharge Diet: No restrictions [...] Care Provider: Clyde Linda Instructions Print Language: Swazi Discharge Orders/Prescriptions Prescriptions: New phenazopyridine 200 mg [...] CC: Dr. Clyde Linda MD ~ Signed [facility]08-07-2025 Consult note [facility] Medical Records Department [address] [place] [place] [address] Pre-Anesthesia Evaluation 11/26/24 1116 MR#: [id number] Acct: [id number] Name: SUELLEN LONG Rep #:[id number] : 1950 74 From: Pankaj James MD PCP: Dr. 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:RE G SDC Y Race: C [facility] ASA Classification* ASA Classification ASA Classification: 3 [...] STENT INSERTION Anesthesia History Anesthesia History - cash person: Anesthesia History - cash person Hx Hospitalization No 11/12/24 10:47 Any Problems [...] take am of surgery PONV PONV - cash person: PONV - cash person Female Yes 11/12/24 10:47 HX of Motion [...] 11/20/24 16:22 Respiratory Assessment Respiratory Assessment - cash person: Respiratory Tract Infection Hx - cash person Hx Respiratory Tract Infection No 11/12/24 10:47 STOP Sleep Apnea STOP Sleep Apnea - cash person: STOP Sleep Apnea - cash person Hx Hypertension Yes: CONTROLLED WITH MED 11/12/24 [...] Tobacco Use History Tobacco Use History - cash person: Tobacco Use History - cash person Tobacco Use Smoking Status Former smoker 11/16/24 16:18 Hx Tobacco Use No 11/12/24 10:47 Years Smoking Packs Smoked per Day Smoking Cessation Date was No - quit smoking greater 11/12/24 10:47 within the last 15 years than 15 years ago Hx Smoking Cessation Date 09/20/76 11/12/24 10:47 Hx Smoking Cessation No 11/12/24 10:47 Counseling Hematologic Medial History Hematologic Hx - cash person: 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 11/26/24 1118 > Date _ Pankaj James MD Cosigner Signature: Date CC: ~ Signed [facility]08-01-2025 Evaluation note* Diagnosis Onset Date Resolution Status Admit Date Cystocele, midline acute November 20, 2024 3:39pm Kidney stones acute November 20, 2024 3:39pm Urinary frequency acute November 20, 2024 3:39pm Urinary tract infection acute A ugust 2024 3:39pm Vaginal atrophy acute November 3:39pm [facility] Work Phone: 1(327) 607-179508-01-2025 Evaluation note* Diagnosis Onset Date Resolution Status Admit Date Cystocele, midline acute November 20, 2024 3:39pm Kidney stones acute November 20, 2024 3:39pm Urinary frequency acute November 20, 2024 3:39pm Urinary tract infection acute A ugust 2024 3:39pm Vaginal atrophy acute November 3:39pm Cystocele, midline acute Septem christina 2024 11:36am Kidney stones acute December 222024 11:36am Urinary frequency acute Septemb er 2024 11:36am Urinary tract infection acute S eptember 2024 11:36am Vaginal atrophy acute January 12, 2025 11:36am [facility] Work Phone: 1(398) 341-394206-12-2025 Radiology Diagnostic study note [facility] Imaging Services [address] [place], [place] [address] [address] Abdomen Single View MR#: [id number] Acct: [id number] Name: SUELLEN LONG Rep #: [id number] : 1950 F 73 From: An Jennings MD PCP: Dr. 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: [facility] CLI Study:Abdomen Single View Date of Exam: 09/30/24 Exam# [id number] Ordering Dr: Yanira Barahona MD PROCEDURE: ABDOMEN SINGLE VIEW 09/30/2024 REASON FOR EXAM: KUB- KIDNEY STONES TECHNIQUE: Single view abdomen. COMPARISON: 09/18/2024. FINDINGS: Left renal/proximal ureteral stones are again noted with the largest measuring 1.6 cm. 8 mm calcification/stone is noted at the topography of the left sacral ala at P8sqxxo. Moderate amount of fecal residue in the [...] topography of the left sacral ala at Q2vfusn. Moderate amount of fecal residue in the large bowels. Reading Location: [place] [address] CC: Dr. Yanira Barahona MD; Dr. Clyde Linda MD ~ Manager Front: Signed [facility]05-31-2025 Radiology Diagnostic study note [facility] Imaging Services [address] [place] [address] Abdomen/Pelvis without Cont MR#: [id number] Acct: [id number] Name: SUELLEN LONG Rep #: [id number] : 1950 F 73 From: Bailey Cedillo MD PCP: Dr. 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: RE G CLI Study:Abdomen/Pelvis without Cont Date of Exa m: 09/18/24 Exam# [id number] Ordering Dr: Yanira Barahona MD PROCEDURE: ABDOMEN/PELVIS [...] lymph nodes may reflect panniculitis. Reading Location: [id number] CC: Dr. Yanira Barahona MD; Dr. Clyde Linda MD ~ Manager Front: Signed [facility]05-15-2025 Radiology Diagnostic study note [facility] Imaging Services [address] [place] [address] Kidney and Bladder MR#: [id number] Acct: [id number] Name: SUELLEN LONG Rep #: [id number] : 1950 F 73 From: Francesco Diaz MD PCP: Dr. 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: RE G CLI Study:Kidney and Bladder Date of Exam: 0 09/01/24 Exam# [id number] Ordering Dr: Yanira Barahona MD PROCEDURE: KIDNEY [...] mm nonobstructive left intrarenal calculus. Reading Location: [facility] CC: Dr. Yanira Barahona MD; Dr. Clyde Linda MD ~ Manager Front: Signed [facility] Author Indra Garcia [facility] Note Date/Time November 26, 2024 2:2 0pm [facility] Medical Records Department [address] [place] [address] Anesthesia Postop Eval I 11/26/24 1419 MR#: [id number] Acct: [id number] Name: SUELLEN LONG Rep #:[id number] : 1950 74 From: Indra CHRISTIANSON PCP: Dr. 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:AL HOLDER Y Race: C Location: [place] [address] Anesthesia: Postop Eval I Current Vital Signs [...] CRNA Cosigner Signature: Date CC: ~ Signed [facility] Work Phone: Consult note Author Pankaj CardozoZuni Comprehensive Health Centerlukasz [facility] Note Date/Time November 26, 2024 3:5 4pm [facility] Medical Records Department [address] [place] [address] Anesthesia Postop Eval II 11/26/24 1512 MR#: [id number] Acct: [id number] Name: SUELLEN LONG Rep #:[id number] : 1950 74 From: Pankaj James MD PCP: Dr. 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 SUPERVISOR.MDOT Spontaneous unlabored Yes 11/26/24 14:20 FOOD CHECKERS AND CASHIERS SUPERVISOR.MDOT respirations Mental status Awake,Calm 11/26/24 14:20 FOOD CHECKERS AND CASHIERS SUPERVISOR.MDOT nausea No 11/26/24 14:20 FOOD CHECKERS AND CASHIERS SUPERVISOR.MDOT Vomiting No 11/26/24 14:20 FOOD CHECKERS AND CASHIERS SUPERVISOR.MDOT Anesthesia Postop Eval I: Fluid Summary Crystalloid volume administer 800 11/26/24 14:20 FOOD CHECKERS AND CASHIERS SUPERVISOR.MDOT (ml) Colloids volume administered ( ml) Blood Product volume administered (ml) Total IV fluid infused 800 11/26/24 14:20 FOOD CHECKERS AND CASHIERS SUPERVISOR.MDOT Anesthesia Postop Eval I: Summary Notes Anesthesia Complication No 11/26/24 14:20 FOOD CHECKERS AND CASHIERS SUPERVISOR.MDOT Anesthesia Complication Comment: Post-operative progress note Anesthesia: Postop Eval II Evaluation Mental status: Awake Pain Level: 0 nausea: No Vomiting: No 11/26/24 1512 <Electronically signed by Pankaj James MD> Date _ Pankaj James MD Cosigner Signature: Date CC: ~ Signed [facility] Work Phone: Consult note [facility] Medical Records Department [address] [place] [address] Anesthesia Postop Eval II 01/28/25 1232 MR#: [id number] Acct: [id number] Name: SUELLEN LONG Rep #:[id number] : 1950 74 From: Naveen Abebe MD PCP: Dr. 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:DE P [facility] Y Race: C Location: [facility] Anesthesia Postop Eval I Sum Postop Eval Completion status Anesthesia document: Postop Eval 1 completed: Yes Anesthesia Postop Eval I Summary Anesthesia Postop Eval I Summary: Anesthesia Postop Eval I: Assessment Summary Airway patent Yes 01/28/25 11:02 FOOD CHECKERS AND CASHIERS SUPERVISOR.MAURAU Spontaneous unlabored Yes 01/28/25 11:02 FOOD CHECKERS AND CASHIERS SUPERVISOR.YUMIKO respirations Mental status Awake,Calm 01/28/25 11:02 FOOD CHECKERS AND CASHIERS SUPERVISOR.JBLOU nausea No 01/28/25 11:02 FOOD CHECKERS AND CASHIERS SUPERVISOR.JBLOU Vomiting No 01/28/25 11:02 FOOD CHECKERS AND CASHIERS SUPERVISOR.JBLOU Anesthesia Postop Eval I: Fluid Summary Crystalloid volume administer 800 01/28/25 11:02 FOOD CHECKERS AND CASHIERS SUPERVISOR.JBLOU (ml) Colloids volume administered ( ml) Blood Product volume administered (ml) Total IV fluid infused 800 01/28/25 11:02 FOOD CHECKERS AND CASHIERS SUPERVISOR.JBLOU Anesthesia Postop Eval I: Summary Notes Anesthesia Complication No 01/28/25 11:02 FOOD CHECKERS AND CASHIERS SUPERVISOR.JBLOU Anesthesia Complication Comment: Post-operative progress note Anesthesia: Postop Eval II Evaluation Mental status: Awake Pain Level: 0 nausea: No Vomiting: No 01/28/25 1232 > Date _ Naveen Raya Signature: Date CC: ~ [facility]igned [facility] Author Nitin Flores [facility] Note Date/Time January 28, 2025 12 :13pm [facility] Medical Records Department [address] [place] [address] Anesthesia Postop Eval I 01/28/25 1057 MR#: [id number] Acct: [id number] Name: SUELLEN LONG Rep #:[id number] : 1950 74 From: Nitin PALACIOS PCP: Dr. 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:RE G [facility] Y Race: C Location: [place] [address] Anesthesia: Postop Eval I Current Vital Signs Temperature: 97.4 F Pulse Rate: 64 Blood Pressure: 128/79 Respiratory Rate: 14 Pulse Ox: 98 Oxygen Delivery Method: Room Air Assessment Airway patent: Yes Spontaneous unlabored respirations: Yes Mental status: Awake and Calm nausea: No Vomiting: No Anesthesia Complication: No Fluid Hydration Crystalloid volume administer (ml): 800 Total IV fluid infused: 800 Progress Note Anesthesia document: Postop Eval 1 completed: Yes 01/28/25 1213 <Electronically signed by Nitin Flores CRNA> Date _ Nitin Flores CRNA Cosigner Signature: Date CC: ~ Signed [facility] Work Phone: Consult note Author Naveen Abebe [facility] Note Date/Time January 28, 2025 12 :32pm [facility] Medical Records Department [address] [place] [place] [address] Anesthesia Postop Eval II 01/28/25 1232 MR#: [id number] Acct: [id number] Name: SUELLEN LONG Rep #:[id number] : 1950 74 From: Naveen Abebe MD PCP: Dr. 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:DE P [facility] Y Race: C Location: [facility] Anesthesia Postop Eval I Sum Postop Eval Completion status Anesthesia document: Postop Eval 1 completed: Yes Anesthesia Postop Eval I Summary Anesthesia Postop Eval I Summary: Anesthesia Postop Eval I: Assessment Summary Airway patent Yes 01/28/25 11:02 FOOD CHECKERS AND CASHIERS SUPERVISOR.JBLOU Spontaneous unlabored Yes 01/28/25 11:02 FOOD CHECKERS AND CASHIERS SUPERVISOR.JBLOU respirations Mental status Awake,Calm 01/28/25 11:02 FOOD CHECKERS AND CASHIERS SUPERVISOR.JBLOU nausea No 01/28/25 11:02 FOOD CHECKERS AND CASHIERS SUPERVISOR.JBLOU Vomiting No 01/28/25 11:02 FOOD CHECKERS AND CASHIERS SUPERVISOR.JBLOU Anesthesia Postop Eval I: Fluid Summary Crystalloid volume administer 800 01/28/25 11:02 FOOD CHECKERS AND CASHIERS SUPERVISOR.JBLOU (ml) Colloids volume administered ( ml) Blood Product volume administered (ml) Total IV fluid infused 800 01/28/25 11:02 FOOD CHECKERS AND CASHIERS SUPERVISOR.JBLOU Anesthesia Postop Eval I: Summary Notes Anesthesia Complication No 01/28/25 11:02 FOOD CHECKERS AND CASHIERS SUPERVISOR.JBLOU Anesthesia Complication Comment: Post-operative progress note Anesthesia: Postop Eval II Evaluation Mental status: Awake Pain Level: 0 nausea: No Vomiting: No 01/28/25 1232 <Electronically signed by Naveen Abebe MD > Date _ Naveen Abebe MD Cosigner Signature: Date CC: ~ Signed [facility] Work Phone: Evaluation noteNo assessment information available [facility] Work Phone: Progress note Author Yanira Barahona [facility] Note Date/Time January 12, 2025 12:16pm [facility] [address] [place] [address], [address] [place] [address] OFFICE VISIT Date of Service: 01/12/25 MR#: [id number] Acct: [id number] Name: SUELLEN LONG Rep #: [id number] : 1950 Provider: Dr. Tr Barahona MD Age/Sex: 74/F Location: [facility] Status: Signed Intake Vital Signs 11/26/24 11:16 01/12/25 12:02 Height 5 ft 5 ft Weight: 140 lb BMI 27.3 BP 126/78 H Pulse 62 Temp 98.1 F Intake Visit Reasons: KUB BEFORE APPT. 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 Is patient in pain?: No Allergies No Known Allergies Allergy (Verified 11/26/24 11:15) Medications ?Medication ?Instructions ?Recorded ?Confirmed ?Type omeprazole 20 mg delayed 20 mg PO DAILY ##90 07/19/20 01/12/25 Rx release,disintegrating tablet alendronate 70 mg tablet (Fosamax) 70 mg PO QWEEK 07/2201/12/25 History calcium carbonate (Calcium 600) 600 mg PO DAILY 01/12/25 History cholecalciferol (vitamin D3) 125 125 mcg PO DAILY 07/2201/12/25 History mcg (5,000 unit) capsule amlodipine 5 mg tablet 5 mg PO QHS 11/12/24 5 History rwomcejb-bqli-uppd 8 mg-folic 400 1 tab PO DAILY 11/1201/12/25 History mcg-K 50 mcg-lutein 300 mcg tablet (Centrum Silver Women) rosuvastatin 10 mg tablet 10 mg PO QHS 11/12/24 History estradiol 0.01% (0.1 mg/gram) 1 g vaginal 3XW 3 months #42.5 11/20/24 01/12/25 Rx vaginal cream grams levofloxacin 500 mg tablet 500 mg PO QDAY #7 tabs 08/1401/12/25 Rx ondansetron 4 mg disintegrating 4 mg PO Q8H PRN nausea and 11/26/24 01/12/25 Rx tablet vomiting #10 tabs ondansetron 4 mg disintegrating 4 mg PO Q8H PRN nausea and 11/26/24 01/12/25 Rx tablet vomiting #10 tabs oxycodone-acetaminophen 5 mg-325 1 tab PO Q8H PRN pain 3 days #10 11/26/24 01/12/25 Rx mg tablet tabs phenazopyridine 200 mg tablet 200 mg PO TID PRN pain # 30 tabs 11/26/24 01/12/25 Rx phenazopyridine 200 mg tablet 200 mg PO TID #30 tabs 0 11/26/24 01/12/25 Rx (Pyridium) Have you fallen in the past year?: No PFSH Medical History Cystocele, midline Vaginal atrophy [...] home: Yes HPI HPI Urology Chief Complaint: possible stent removal Details: SUELLEN LONG, is a 74 F. She is here for for follow-up after cystoscopy with left ureteral stent and leftrenal extracorporal shockwave lithotripsy. She is feeling well. There is no pain, hematuria, dysuria, fever or other sign of concern. She does have some urgency and incontinence. No issues with bowel movements and her appetite is good. She has not passed any significant stone fragments. ROS Const Constitutional: No chills, fatigue, fever(s), [...] Endocrine: No fatigue, increased thirst/drinking or weight change Aller/Imm Allergy/Immunologic: No itchy eyes or wheezing Ryne/Lymp Hematologic/Lymphatic: No easy bleeding, easy bruising or enlarged lymph nodes Exam Const General: cooperative, healthy appearing, comfortable and no acute distress HENMT Head: normocephalic and atraumatic Ears: hearing grossly normal bilaterally and external ears normal Nose: external nose normal Eyes General: appearance normal, both eyes and all related structures Neck Neck: normal visual inspection and trachea midline Chest Chest palpation & inspection: normal inspection of the chest Resp Effort & Inspection: normal respiratory effort, able to speak in complete sentences and symmetric chest movement Cardio Rate: regular rate GI Inspection: normal to inspection Palpation: soft and nontender General: No CVA tenderness Skin General: no rashes or lesions noted Neuro General: patient alert, patient awake, patient oriented x3 and CN's II-XI intactbilaterally Extrem General: normal to inspection Psych Appearance: grossly normal and well kempt Mental Status: mental status grossly normal Results POC Urinalysis w/Micro Office Urine Color YELLOW Last Edit by Veronica Castañeda on 01/12/25 12:16 Office Urine Clarity Last Edit by Veronica Castañeda on 01/12/25 12:16 Office Urine Glucose Negative Last Edit by Veronica Castañeda on 01/12/25 12:16 Office Urine Ketones Negative Last Edit by Veronica Castañeda on 01/12/25 12:16 Office Urine Bilirubin Negative Last Edit by Veronica Castañeda on 01/12/25 12:16 Office Urine Urobilinogen 0.2 mg/dL Last Edit by Veronica Castañeda on 01/12/25 12:16 Off Ur Spec Delanson 1.015 Last Edit by Veronica Castañeda on 01/12/25 12:16 Office Urine pH 5.5 Last Edit by Veronica Castañeda on 01/12/25 12:16 Office Urine Protein Trace Last Edit by Veronica Castañeda on 01/12/25 12:16 Office Urine Blood Trace Last Edit by Veronica Castañeda on 01/12/25 12:16 Office Urine Blood Hemolyzed Last Edit by Veronica Castañeda on 01/12/25 12:16 Office Urine Nitrate Negative Last Edit by Veronica Castañeda on 01/12/25 12:16 Off Ur Leukocytes Positive Last Edit by Veronica Castañeda on 01/12/25 12:16 125 Veronica Castañeda 01/12/25 12:16 Off Ur WBC Microscopic Last Edit by Veronica Castañeda on 01/12/25 12:16 Off Ur RBC Microscopic Last Edit by Veronica Castañeda on 01/12/25 12:16 Off Ur Bacteria Microscopic Last Edit by Veronica Castañeda on 01/12/25 12:16 Supplemental Info KUB reviewed, showing significant lower pole stone burden, nothing at the [facility] Coding Level of Care Code Off vis,est,level 4 Diagnoses Kidney stones N20.0 Urinary tract infection N39.0 Vaginal atrophy N95.2 Cystocele, midline N81.11 Urinary frequency R35.0 Assessment and Plan Assessment and Plan (1) Kidney stones: Status: Acute (2) Urinary tract infection: Status: Acute (3) Vaginal atrophy: Status: Acute (4) Cystocele, midline: Status: Acute (5) Urinary frequency: Status: Acute Orders: Orders POC UA Automated w/Microscopy Today N39.0 - Urinary tract infection, site not specified Plan schedule cystoscopy and left ureteroscopy, laser lithotripsy with stone basket extraction, left ureteral stent change urine culture The procedure, recovery and expectations were explained. The risks, benefits andalternatives were discussed, including but not limited to, [...] surgery/procedure as indicated on the consent form. Clinical Quality Measures Falls Risk Screening/Assistive Devices Have you fallen in the past year?: No 01/12/25 1249 <Electronically signed by Yanira Barahona MD> Date _ Yanira Barahona MD Cosigner Signature: Date (if applicable) CC: ~ [facility] Work Phone: Reason for referral (narrative)No reason for referral information availableWKet[facility] Work Phone: Summary Purpose Family History No [...] No July 14, 2020 10:39am Power of Gas Welding Equipment Mechanic No July 14 10:39am Advance Directive Response Recorded Date/ Time Living Will No July 14, 2020 9:39am Power of Gas Welding Equipment Mechanic No July 14 9:39am Advance Directive Response Recorded Date/ Time Do you have a Healthcare Power of Gas Welding Equipment Mechanic? No November 12, 2024 10:47am Advance Directive Response Recorded Date/ Time Do you have a Healthcare Power of Gas Welding Equipment Mechanic? No November 12, 2024 10:47am Do you have a Healthcare Power of Gas Welding Equipment Mechanic? No January 20, 2025 11:26am Chief Complaint and Reason for Visit Chief [...] Vaginal atrophy November 20, 2024 3:3 9pm Chief Complaint Admit Date KUB- KIDNEY STONES September 30, 2024 3:02 pm PREOP November 17, 2024 1:42 pm PRE OP URINE/SIGNED CONSENT November 20, 2024 3:39pm Left renal ESWL, Cysto, Left stent inser tion November 26, 2024 10:28am Left renal ESWL, Cysto, Left stent inser tion November 26, 2024 12:51pm Left renal ESWL, Cysto, Left stent inser tion December 03, 2024 9:06am KUB- KIDNEY STONES January 12, 2025 11:18am KUB BEFORE APPT. STENT REMOVAL January 12, 2025 11:36am Reason for Visit Admit Date Cystocele, midline November 20, 2024 3:3 9pm Kidney stones November 20, 2024 3:3 9pm Urinary frequency November 20, 2024 3:3 9pm Urinary tract infection November 20, 2024 3:39pm Vaginal atrophy November 20, 2024 3:3 9pm Cystocele, midline January 12, 2025 11:36am Kidney stones January 12, 2025 11:36am Urinary frequency January 12, 2025 11:36am Urinary tract infection January 12, 2025 11:36am Vaginal atrophy January 12, 2025 11:36am Chief Complaint Admit Date KUB- KIDNEY STONES September 30, 2024 3:02 pm PREOP November 17, 2024 1:42 pm PRE OP URINE/SIGNED CONSENT November 20, 2024 3:39pm Left renal ESWL, Cysto, Left stent inser tion November 26, 2024 10:28am Left renal ESWL, Cysto, Left stent inser tion November 26, 2024 12:51pm Left renal ESWL, Cysto, Left stent inser tion December 03, 2024 9:06am KUB- KIDNEY STONES January 12, 2025 11:18am KUB BEFORE APPT. STENT REMOVAL January 12, 2025 11:36am pre-op urine C&S sign consent January 10:51am Chief Complaint Admit Date PREOP November 17, 2024 1:42 pm PRE OP URINE/SIGNED CONSENT November 20, 2024 3:39pm Left renal ESWL, Cysto, Left stent inser tion November 26, 2024 10:28am Left renal ESWL, Cysto, Left stent inser tion November 26, 2024 12:51pm Left renal ESWL, Cysto, Left stent inser tion December 03, 2024 9:06am KUB- KIDNEY STONES January 12, 2025 11:18am KUB BEFORE APPT. STENT REMOVAL January 12, 2025 11:36am pre-op urine C&S sign consent January 10:51am Cysto, Left ureteroscopy laser litho, st one basket January 28, 2025 7:35am Cysto, Left ureteroscopy laser litho, st one basket January 28, 2025 8:33am Additional Source Comments INFORMATION SOURCE (unrecogn ized section and content) DATE CREATED AUTHOR 03/24/2020 [facility] ([place]) DATE CREATED AUTHOR AUTHOR'S ORGANIZ ATION [facility]20[facility] Goals (unrecognized section and content) Goals [...] Active Start: November 26, 2024 Dr. Yanira Braahona MD Referring Provider Active Start: November 26, 2024 Dr. Yanira Barahona MD Other Provider Active Sta rt: November 26, 2024 Team Status: Active Member Role/Relationship Status Dates Dr. Clyde Linda MD Primary care physician Active Team Status: Inactive Member Role/Relationship Status Dates Dr. Clyde Linda MD Primary care physician Active Start: September 30, 2024 End: September 30, 2024 Dr. Yanira Barahona MD Attending physician Active Start: September 30, 2024 End: September 30, 2024 Dr. Yanira Barahona MD Referring Provider Active Start: September 30, 2024 End: September 30, 2024 Team Status: Inactive Member Role/Relationship Status Dates Dr. Clyde Linda MD Primary care physician Active Start: October 20, 2024 Dr. Yanira Barahona MD Attending physician Active Start: October 20, 2024 Team Status: Inactive Member Role/Relationship Status Dates Dr. Clyde Linda MD Primary care physician Active Start: October 28, 2024 End: October 28, 2024 Dr. Clyde Linda MD Attending physician Active Start: October 28, 2024 End: October 28, 2024 Dr. Clyde Linda MD Referring Provider Active Start: October 28, 2024 End: October 28, 2024 Team Status: Active Member Role/Relationship Status Dates Dr. Clyde Linda MD Primary care physician Active Start: November 17, 2024 End: November 17, 2024 Dr. Kyaw Perry MD Attending physician Active Start: November 17, 2024 End: November 17, 2024 Dr. Yanira Barahona MD Referring Provider Active Start: November 17, 2024 End: November 17, 2024 Team Status: Inactive Member Role/Relationship Status Dates Dr. Clyde Linda MD Primary care physician Active Start: November 20, 2024 End: November 20, 2024 Dr. Clyde Linda MD Referring Provider Active Start: November 20, 2024 End: November 20, 2024 Dr. Yanira Barahona MD Attending physician Active Start: November 20, 2024 End: November 20, 2024 Team Status: Inactive Member Role/Relationship Status Dates Dr. Clyde Linda MD Primary care physician Active Start: November 26, 2024 End: November 26, 2024 Dr. Yanira Barahona MD Attending physician Active Start: November 26, 2024 End: November 26, 2024 Dr. Yanira Barahona MD Referring Provider Active Start: November 26, 2024 End: November 26, 2024 Team Status: Active Member Role/Relationship Status Dates Dr. Clyde Linda MD Primary care physician Active Start: November 26, 2024 Dr. Yanira Barahona MD Attending physician Active Start: November 26, 2024 Dr. Yanira Barahona MD Referring Provider Active Start: November 26, 2024 Dr. Yanira Barahona MD Nurse Practitioner Active Start: November 26, 2024 Team Status: Active Member Role/Relationship Status Dates Dr. Clyde Linda MD Primary care physician Active Start: December 03, 2024 Dr. Yanira Barahona MD Attending physician Active Start: December 03, 2024 Dr. Yanira Barahona MD Referring Provider Active Start: December 03, 2024 Dr. Yanira Barahona MD Nurse Practitioner Active Start: December 03, 2024 Team Status: Inactive Member Role/Relationship Status Dates Dr. Clyde Linda MD Primary care physician Active Start: January 12, 2025 End: January 12, 2025 Dr. Yanira Barahona MD Attending physician Active Start: January 12, 2025 End: January 12, 2025 Dr. Yanira Barahona MD Referring Provider Active Start: January 12, 2025 End: January 12, 2025 Team Status: Inactive Member Role/Relationship Status Dates Dr. Clyde Linda MD Primary care physician Active Start: January 12, 2025 End: January 12, 2025 Dr. Clyde Linda MD Referring Provider Active Start: January 12, 2025 End: January 12, 2025 Dr. Yanira Barahona MD Attending physician Active Start: January 12, 2025 End: January 12, 2025 Team Status: Inactive Member Role/Relationship Status Dates Dr. Clyde Linda MD Primary care physician Active Start: January 21, 2025 End: January 21, 2025 Dr. Clyde Linda MD Referring Provider Active Start: January 21, 2025 End: January 21, 2025 Dr. Yanira Barahona MD Attending physician Active Start: January 21, 2025 End: January 21, 2025 Team Status: Inactive Member Role/Relationship Status Dates Dr. Clyde Linda MD Primary care physician Active Start: October 20, 2024 Dr. Yanira Barahona MD Attending physician Active Start: October 20, 2024 Team Status: Inactive Member Role/Relationship Status Dates Dr. Clyde Linda MD Primary care physician Active Start: October 28, 2024 End: October 28, 2024 Dr. Clyde Linda MD Attending physician Active Start: October 28, 2024 End: October 28, 2024 Dr. Clyde Linda MD Referring Provider Active Start: October 28, 2024 End: October 28, 2024 Team Status: Active Member Role/Relationship Status Dates Dr. Clyde Linda MD Primary care physician Active Start: November 17, 2024 End: November 17, 2024 Dr. Kyaw Perry MD Attending physician Active Start: November 17, 2024 End: November 17, 2024 Dr. Yanira Barahona MD Referring Provider Active Start: November 17, 2024 End: November 17, 2024 Team Status: Inactive Member Role/Relationship Status Dates Dr. Clyde Linda MD Primary care physician Active Start: November 20, 2024 End: November 20, 2024 Dr. Clyde Linda MD Referring Provider Active Start: November 20, 2024 End: November 20, 2024 Dr. Yanira Barahona MD Attending physician Active Start: November 20, 2024 End: November 20, 2024 Team Status: Inactive Member Role/Relationship Status Dates Dr. Clyde Linda MD Primary care physician Active Start: November 26, 2024 End: November 26, 2024 Dr. Yanira Barahona MD Attending physician Active Start: November 26, 2024 End: November 26, 2024 Dr. Yanira Barahona MD Referring Provider Active Start: November 26, 2024 End: November 26, 2024 Team Status: Active Member Role/Relationship Status Dates Dr. Clyde Linda MD Primary care physician Active Start: November 26, 2024 Dr. Yanira Barahona MD Attending physician Active Start: November 26, 2024 Dr. Yanira Barahona MD Referring Provider Active Start: November 26, 2024 Dr. Yanira Barahona MD Nurse Practitioner Active Start: November 26, 2024 Team Status: Active Member Role/Relationship Status Dates Dr. Clyde Linda MD Primary care physician Active Start: December 03, 2024 Dr. Yanira Barahona MD Attending physician Active Start: December 03, 2024 Dr. Yanira Barahona MD Referring Provider Active Start: December 03, 2024 Dr. Yanira Barahona MD Nurse Practitioner Active Start: December 03, 2024 Team Status: Inactive Member Role/Relationship Status Dates Dr. Clyde Linda MD Primary care physician Active Start: January 12, 2025 End: January 12, 2025 Dr. Yanira Barahona MD Attending physician Active Start: January 12, 2025 End: January 12, 2025 Dr. Yanira Barahona MD Referring Provider Active Start: January 12, 2025 End: January 12, 2025 Team Status: Inactive Member Role/Relationship Status Dates Dr. Clyde Linda MD Primary care physician Active Start: January 12, 2025 End: January 12, 2025 Dr. Clyde Linda MD Referring Provider Active Start: January 12, 2025 End: January 12, 2025 Dr. Yanira Barahona MD Attending physician Active Start: January 12, 2025 End: January 12, 2025 Team Status: Inactive Member Role/Relationship Status Dates Dr. Clyde Linda MD Primary care physician Active Start: January 21, 2025 End: January 21, 2025 Dr. Clyde Linda MD Referring Provider Active Start: January 21, 2025 End: January 21, 2025 Dr. Yanira Barahona MD Attending physician Active Start: January 21, 2025 End: January 21, 2025 Team Status: Inactive Member Role/Relationship Status Dates Dr. Clyde Linda MD Primary care physician Active Start: January 28, 2025 End: January 28, 2025 Dr. Yanira Barahona MD Attending physician Active Start: January 28, 2025 End: January 28, 2025 Dr. Yanira Barahona MD Referring Provider Active Start: January 28, 2025 End: January 28, 2025 Team Status: Active Member Role/Relationship Status Dates Dr. Clyde Linda MD Primary care physician Active Start: January 28, 2025 Dr. Yanira Barahona MD Attending physician Active Start: January 28, 2025 Dr. Yanira Barahona MD Referring Provider Active Start: January 28, 2025 Dr. Yanira Barahona MD Nurse Practitioner Active Start: January 28, 2025 FOR RECORDS PERTAINING TO PATIENTS WHO ARE [...] BE BASED ON THE PRIMARY CLINICAL RECORDS. [employer] [facility]. provides no warranty or guarantee of the accuracy or completeness of information in this document.
--- OUTSIDE RECORDS SUMMARY | 2025-02-11 19:04 | XMS RPT_ITS | CCD ---
Author Organization [facility] Care Team Providers Care Conference Interpreter Name Role Phone Maddi PADILLA, Dr. Clyde Murdock Primary Care Provider Maddi PADILLA, Dr. Clyde Murdock Attending Provider Maddi PADILLA, Dr. Clyde Murdock Referring Provider [phone] Brooklyn PADILLA, Dr. Doyle Attending Provider Brooklyn [...] Attending Unavailable Schinner, Clyde E Referring Unavailable WynesYnaira tan Attending Unavailable Schinner, Clyde E Primary [...] vaginal cream (5 sources) Estrogen Start: 11-20-2024 Agkvnxzo-Xck-Yfan-Fa- Vit K-Lut (Centrum Silver Women) 8 mg iron-400 mcg-50 mcg tablet (6 sources) Start: 11-12-2024 take 1 tablet by mouth once daily Xehcvjfx-Onv-Y jordan-Fa-Vit K-Lut (Centrum Silver Women) 8 mg iron-400 mcg-50 mcg tablet Active 1 {tbl} PO DAILY November 12, 2024 12:00am Complies with drug therapy Start: 11-12-2024 take 1 tablet by mouth once da lauryn Start: 11-12-2024 take 1 tablet by mouth once da lauryn Xlqytpov-Uib-Pwsx-Fa-Vit K- Lut (Centrum Silver Women) 8 mg [...] MSSA bacteremia weekly bmp, cbc. Fax to [phone] routine picc care with heparin/saline flush per protocol cyclobenzaprine hydrochloride 10 mg oral tablet (18 sources) Muscle Relaxant Start: 07-14-2020 End: 11-12-2024 Cyclobenzaprine 10 MG tablet Discontinued 10 mg PO NEEDED as needed for muscle spasms July 14, 2020 12:00am November 12, 2024 10:43am docusate sodium 50 mg / sennosides, shelter 8.6 mg oral tablet (18 sources) Start: [...] 12:00am August 12, 2023 2:26pm lactobacillus acidophilus [phone] unt / pectin 100 mg oral tablet (18 sources) Start: 06-10-2020 End: 08-12-2023 take 1 tablet by mouth twice daily Acidophilus-Pecti n, [place] 1 TABLET tablet Discontinued 1 NMA PO TWICE A DAY 0 June 10, 2020 1:00am August 12, 2023 2:26pm Start: 06-10-2020 take 1 tablet by andrews twice daily Acidophilus-Pectin, [place] Active 1 TAB PO TWICE A DAY [...] June 10, 2020 2:57pm polyethylene glycol [phone] mg / potassium chloride 2970 mg / sodium bicarbonate 6740 mg / sodium chloride 5860 mg / sodium sulfate 48416 mg powder for oral solution (11 sources) [...] Photoon 02-09-2025 2,8 Dihydroxyad TNP Normal . [facility] Comment on above: Order Comment: Comme nts: left ureteral stones collected in OR Performed By: #### L 3650.0100 ####[facility] [address] [place], [address] AMM ACID URATE TNP Normal . [facility] Comment on above: Order Comment: Comme nts: left ureteral stones collected in OR Performed By: #### L 3650.0100 ####[facility] [address] [place], [address] Bilirubin Ql (U) TNP Normal . [facility] Comment on above: Order Comment: Comme nts: left ureteral stones collected in OR Performed By: #### L 3650.0100 ####[facility] [address] [place], [address] CA BILIRUBINATE TNP Normal . [facility] Comment on above: Order Comment: Comme nts: left ureteral stones collected in OR Performed By: #### L 3650.0100 ####[facility] [address] [place], [address] CA CARBONATE TNP Normal . [facility] Comment on above: Order Comment: Comme nts: left ureteral stones collected in OR Performed By: #### L 3650.0100 ####[facility] [address] [place], [address] CA HYDROG PHOS TNP Normal . [facility] Comment on above: Order Comment: Comme nts: left ureteral stones collected in OR Performed By: #### L 0.0100 ####[facility] [address] [place], [address] CA OXAL DIHYDR 20 Normal . [facility] Comment on above: Order Comment: Comme nts: left ureteral stones collected in OR Performed By: #### L 0.0100 ####[facility] [address] [place], [address] CA OXAL MONOHYD 70 Normal . [facility] Comment on above: Order Comment: Comme nts: left ureteral stones collected in OR Performed By: #### L 3649.0100 ####[facility] [address] [place], [address] CA Palmitate TNP Normal . [facility] Comment on above: Order Comment: Comme nts: left ureteral stones collected in OR Performed By: #### L 3649.0100 ####[facility] [address] [place], [address] CA PHOS (hydro) 10 Normal . [facility] Comment on above: Order Comment: Comme nts: left ureteral stones collected in OR Result Comment: Perf ormed at: [facility] [address] [id number] Business Support: Linda Kowalski PhD, Phone: [phone] Performed By: #### L 3649.0100 ####[facility] [address] [place], [address] CA PHOSPHATE TNP Normal . [facility] Comment on above: Order Comment: Comme nts: left ureteral stones collected in OR Performed By: #### L 3649.0100 ####[facility] [address] [place], [address] CA Stearate TNP Normal . [facility] Comment on above: Order Comment: Comme nts: left ureteral stones collected in OR Performed By: #### L 0.0100 ####[facility] [address] [place], [address] CHOLESTEROL TNP Normal . [facility] Comment on above: Order Comment: Comme nts: left ureteral stones collected in OR Performed By: #### L 3649.0100 ####[facility] [address] [place], [address] Color (U) Brown Normal . [facility] Comment on above: Order Comment: Comme nts: left ureteral stones collected in OR Performed By: #### L 0.0100 ####[facility] [address] [place], [address] COMMENT TNP Normal . [facility] Comment on above: Order Comment: Comme nts: left ureteral stones collected in OR Performed By: #### L 3649.0 ####[facility] [address] [place], [address] CYSTINE TNP Normal . [facility] Comment on above: Order Comment: Comme nts: left ureteral stones collected in OR Performed By: #### L 3649.0100 ####[facility] [address] [place], [address] Drug/Metabolite TNP Normal . [facility] Comment on above: Order Comment: Comme nts: left ureteral stones collected in OR Performed By: #### L 3649.0100 ####[facility] [address] [place], [address] MAG MICHAELA PHOS TNP Normal . [facility] Comment on above: Order Comment: Comme nts: left ureteral stones collected in OR Performed By: #### L 3649.0100 ####[facility] [address] [place], [address] NA ACID URATE TNP Normal . [facility] Comment on above: Order Comment: Comme nts: left ureteral stones collected in OR Performed By: #### L 0.0100 ####[facility] [address] [place], [address] NEWBERYITE TNP Normal . [facility] Comment on above: Order Comment: Comme nts: left ureteral stones collected in OR Performed By: #### L 3650.0100 ####[facility] [address] [place], [address] Other Component TNP Normal . [facility] Comment on above: Order Comment: Comme nts: left ureteral stones collected in OR Performed By: #### L 3650.0100 ####[facility] [address] [place], [address] SIZE 3x3 Normal . [facility] Comment on above: Order Comment: Comme nts: left ureteral stones collected in OR Result Comment: Mult iple pieces received. Dimensions of the largest piece reported. Performed By: #### L 0.0100 ####[facility] [address] [place], [address] SOURCE Comment Normal . [facility] Comment on above: Order Comment: Comme nts: left ureteral stones collected in OR Result Comment: Left Ureter Performed By: #### L 0.0100 ####[facility] [address] [place], [address] TRIAMTERENE TNP Normal . [facility] Comment on above: Order Comment: Comme nts: left ureteral stones collected in OR Performed By: #### L 0.0100 ####[facility] [address] [place], [address] URIC ACID TNP Normal . [facility] Comment on above: Order Comment: Comme nts: left ureteral stones collected in OR Performed By: #### L 0.0100 ####[facility] [address] [place], [address] URIC ACID DIHYD TNP Normal . [facility] [place] [facility] Comment on above: Order Comment: Commcollette nts: left ureteral stones collected in OR Performed By: #### L 3650.0100 ####[facility] [address] [place], [address] WEIGHT 22 mg Normal . [facility] Comment on above: Order Comment: Commcollette nts: left ureteral stones collected in OR Performed By: #### L 3650.0100 ####[facility] [address] [place], [address] XANTHINE TNP Normal . [facility] Comment on above: Order Comment: Commcollette nts: left ureteral stones collected in OR Performed By: #### L 3650.0100 ####[facility] [address] [place], [address] Surgical pathology reportOrd ered By: Shanice Esqueda on 01-29-2025 Surgical pathology study [facility] Discharge Instructionon Discharge Instruction [facility] Medical Records Department [address] [place] [address] Instructions for Home/Discharge Instructions 01/28/25 0843 MR#: [id number] Acct: [id number] Name: SUELLEN LONG Rep #: [id number] : 1950 74 From: Yanira Barahona MD PCP: Dr. 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:REG [facility] Discharge Instructions Diet Discharge Diet: No restrictions [...] Primary Care Provider: Clyde Linda Print Language: Finnish Discharge Orders/Prescription s Prescriptions: New oxycodone-acetamino phen [...] MD CC: Dr. Clyde Linda MD Signed [facility] MR/POSTOP.[facility] 01-28-2025 MR/POSTOP.[facility] Medical Records Department [address] [place] [address] Anesthesia Postop Eval I 01/28/25 1057 MR#: [id number] Acct: [id number] Name: SUELLEN LONG Rep #: [id number] : 1950 74 From: Nitin Flores CRNA PCP: Dr. 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:REG SDC Y Race: C Location: [place] [address] Anesthesia: Postop Eval I Current Vital Signs [...] completed: Yes 01/28/25 1213 Date Nitin Flores PLATE FILLER Cosigner Signature: Date CC: Signed Normal [facility] MR/AEASYTGH1sy 01-28-2025 MR/POSTOPAN2 [facility] Medical Records Department [address] [place] [address] Anesthesia Postop Eval II 01/28/25 1232 MR#: [id number] Acct: [id number] Name: SUELLEN LONG Rep #: [id number] : 1950 74 From: Naveen Abebe MD PCP: Dr. 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:[facility] Y Race: C Location: [facility] Anesthesia Postop Eval I Sum Postop Eval Completion status Anesthesia document: Postop Eval 1 completed: Yes Anesthesia Postop Eval I Summary Anesthesia Postop Eval I Summary: Anesthesia Postop Eval I: Assessment Summary Airway patent Yes 01/28/25 11:02 PLATE [email or web address] Spontaneous unlabored Yes 01/28/25 11:02 PLATE [email or web address].JBLOU respirations Mental status Awake,Calm 01/28/25 11:02 PLATE [email or web address].JBLOU nausea No 01/28/25 11:02 PLATE FILLER.JBLOU Vomiting No 01/28/25 11:02 PLATE [email or web address].JBLOU Anesthesia Postop Eval I: Fluid Summary Crystalloid volume administer 800 01/28/25 11:02 PLATE FILLER.JBLOU (ml) Colloids volume administered ( ml) Blood Product volume administered (ml) Total IV fluid infused 800 01/28/25 11:02 PLATE [email or web address].JBLOU Anesthesia Postop Eval I: Summary Notes Anesthesia Complication No 01/28/25 11:02 PLATE [email or web address].JBLOU Anesthesia Complication Comment: Post-operative progress note Anesthesia: Postop Eval II Evaluation Mental status: Awake Pain Level: 0 nausea: No Vomiting: No 01/28/25 1232 Date Naveen Raya Signature: Date CC: Signed Normal [facility] Operative Reporton 5 Operative Report [facility] Medical Records Department [address] [place] [address] Operative Report 01/28/25 1103 MR#: [id number] Acct: [id number] Name: SUELLEN LONG Rep #: [id number] : 1950 74 From: Yanira Barahona MD PCP: Dr. 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:[facility] Location: [place] [address] Operative Report (Standard) Operative Information Date of Procedure: 01/28/25 Pre-Operative Diagnosis: Left renal calculus Post-Operative Diagnosis: Same Surgery/Procedure Performed: Cystoscopy, left ureteroscopy, thulium laser lithotripsy, stone basket extraction, left ureteral stent change project development director: No Type of Anesthesia: General RN Documented [...] NTS that apply: Drains Drain details: 6 Wallisian by 22 cm JJ stent Estimated Blood [...] was utilized for placement of a 6 Wallisian 22 cm JJ stent with good positioning [...] MD; Dr. Clyde Linda MD Signed Normal [facility] Surgery Specimen Level Ion 1 Surgery Specimen Level I ---- Patient Age/Sex Location Account Attending Physician SUELLEN LONG 74/F [facility] [id number] Dr. Yanira Barahona MD Specimen: [id number] Received: 01/28/25 Status: JAMEY Barber Num: [id number] Spec Type: Calculi Subm Dr: Dr. Yanira [...] The specimen is for gross examination only. NE 01/28/2025PT:04741 Patient Age/Sex Location Account Attending Physician SUELLEN LONG 74/F [facility] [id number] Dr. Yanira Barahona MD Signed (signatur e on file) Dr. Shanice Esqueda DO 01/29/25 0941 [facility] Comment on above: Performed By: #### P DOMINIQUE ####[facility] [address] [place], [address] Anion gap in Serum or Plasma Ordered By: Yanira Barahona on 01-25-2025 Anion gap [Moles/Vol] 14 mmol/L 09-03 [facility] BUN/creatinine ratioOrdered By: Yanira Barahona on 01-25-2025 Urea nitrogen/Creatinine [Mass ratio] 18.0 mg/mg 02-08 [facility] Basic Metabolic Profile (BMP )on 01-25-2025 BUN/CRE 18.0 RATIO Normal 02-08 [facility] Comment on above: Performed By: #### L 100.0500, L500.2500 ####[facility] [address] [place], [address] Calcium [Mass/Vol] 9.5 mg/dL Normal 7.6-11.0 [facility] Comment on above: Performed By: #### L 100.0500, L500.2500 ####[facility] [address] [place], [address] Chloride [Moles/Vol] 106 mmol/L Normal 98-108 [facility] Comment on above: Performed By: #### L 100.0500, L500.2500 ####[facility] [address] [place], [address] CO2 [Moles/Vol] 22.7 mmol/L Normal 21.0-32.0 [facility] Comment on above: Performed By: #### L 100.0500, L500.2500 ####[facility] [address] [place], [address] Creatinine [Mass/Vol] 0.60 mg/dL Low 0.70-1.20 [facility] Comment on above: Performed By: #### L 100.0500, L500.2500 ####[facility] [address] [place], [address] GAP 14 Normal 09-03 [facility] Comment on above: Performed By: #### L 100.0500, L500.2500 ####[facility] [address] [place], [address] GFR/1.73 sq M.predicted among non-blacks MDRD (S/P/Bld) [Vol rate/Area] 94 mL/min/{1.73_m2} Normal >60 [facility] Comment on above: Result Comment: mL/m in/1.73m2 CKD-EPI Creatinine Equation (2020) Performed By: #### L 100.0500, L500.2500 ####[facility] [address] [place], [address] Glucose [Mass/Vol] 89 mg/dL Normal 70-99 [facility] Comment on above: Performed By: #### L 100.0500, L500.2500 ####[facility] [address] [place], [address] Potassium [Moles/Vol] 3.8 mmol/L Normal 3.3-5.1 [facility] Comment on above: Performed By: #### L 100.0500, L500.2500 ####[facility] [address] [place], [address] Sodium [Moles/Vol] 143 mmol/L Normal 133-145 [facility] Comment on above: Performed By: #### L 100.0500, L500.2500 ####[facility] [address] [place], [address] Urea nitrogen [Mass/Vol] 11 mg/dL Normal 4-19 [facility] Comment on above: Performed By: #### L 100.0500, L500.2500 ####[facility] [address] [place], [address] CBC-Complete Blood Cnt No Di ffon 01-25-2025 Erythrocyte distribution width (RBC) [Ratio] 13.5 % Normal 11.6-14.6 [facility] Comment on above: Performed By: #### L 100.0500, L500.2500 ####[facility] [address] [place], [address] Hematocrit (Bld) [Volume fraction] 41.4 % Normal 37-47 [facility] Comment on above: Performed By: #### L 100.0500, L500.2500 ####[facility] [address] [place], [address] Hemoglobin (Bld) [Mass/Vol] 13.5 g/dL Normal 12.0-15.0 [facility] Comment on above: Performed By: #### L 100.0500, L500.2500 ####[facility] [address] [place], [address] MCH (RBC) [Entitic mass] 29.5 pg Normal 27.0-32.0 [facility] Comment on above: Performed By: #### L 100.0500, L500.2500 ####[facility] [address] [place], [address] MCHC (RBC) [Mass/Vol] 32.6 g/dL Normal 32-36 [facility] Comment on above: Performed By: #### L 100.0500, L500.2500 ####[facility] [address] [place], [address] MCV (RBC) [Entitic vol] 90.6 fL Normal 81-99 [facility] Comment on above: Performed By: #### L 100.0500, L500.2500 ####[facility] [address] [place], [address] Platelet mean volume (Bld) [Entitic vol] 10.3 fL Normal 6.2-12.0 [facility] Comment on above: Performed By: #### L 100.0500, L500.2500 ####[facility] [address] [place], [address] Platelets (Bld) [#/Vol] 340 10*3/uL Normal 150-450 [facility] Comment on above: Performed By: #### L 100.0500, L500.2500 ####[facility] [address] [place], [address] RBC (Bld) [#/Vol] 4.57 10*6/uL Normal 4.2-5.4 [facility] Comment on above: Performed By: #### L 100.0500, L500.2500 ####[facility] [address] [place], [address] RDW SD 44.9 fl High 35.1-43.9 [facility] Comment on above: Performed By: #### L 100.0500, L500.2500 ####[facility] [address] [place], [address] WBC (Bld) [#/Vol] 6.9 10*3/uL Normal 4.4-11.0 [facility] Comment on above: Performed By: #### L 100.0500, L500.2500 ####[facility] [address] [place], [address] Carbon dioxide, total [Moles /volume] in Central venous bloodOrdered By: Yanira Barahona on 01-25-2025 CO2 [Moles/Vol] 22.7 mmol/L 21.0-32.0 [facility] Chloride assayOrdered By: Thierno Barahona on 01-25-2025 Chloride [Moles/Vol] 106 mmol/L 98-108 [facility] Erythrocyte distribution wid th ratioOrdered By: Yanira Barahona on 01-25-2025 Erythrocyte distribution width (RBC) [Ratio] 13.5 % 11.6-14.6 [facility] Erythrocyte distribution wid th standard deviationOrdered By: Yanira Barahona on 01-25-2025 Erythrocyte distribution width (RBC) [Ratio] 44.9 fl High 35.1-43.9 [facility] Glomerular filtration rate ( GFR) estimation/1.73 sq m using serum, plasma, or whole bOrdered By: Yanira Barahona on 01-25-2025 GFR/1.73 sq M.predicted among non-blacks MDRD (S/P/Bld) [Vol rate/Area] 94 mL/min/{1.73_m2} >60 [facility] Comment on above: mL/min/1.73m2 CKD-EP I Creatinine Equation (2020) Hematocrit Auto (Bld) [Volum e fraction]Ordered By: Yanira Barahona on 01-25-2025 Hematocrit (Bld) [Volume fraction] 41.4 % 37-47 [facility] Hemoglobin measurementOrdere d By: Yanira Barahona on 01-25-2025 Hemoglobin (Bld) [Mass/Vol] 13.5 g/dL 12.0-15.0 [facility] MCV (mean corpuscular volume ) determinationOrdered By: Yanira Barahona on 01-25-2025 MCV (RBC) [Entitic vol] 90.6 fL 81-99 [facility] Mean corpuscular hemoglobin (MCH) determinationOrdered By: Yanira Barahona on 01-25-2025 MCH (RBC) [Entitic mass] 29.5 pg 27.0-32.0 [facility] Mean corpuscular hemoglobin concentration (MCHC) determinationOrdered By: Yanira Barahona on 01-25-2025 MCHC (RBC) [Mass/Vol] 32.6 g/dL 32-36 [facility] Mean platelet volume determi nationOrdered By: Yanira Barahona on 01-25-2025 Platelet mean volume (Bld) [Entitic vol] 10.3 fL 6.2-12.0 [facility] Platelet countOrdered By: Thierno Barahona on 01-25-2025 Platelets (Bld) [#/Vol] 340 10*3/uL 150-450 [facility] Potassium measurement (mass/ volume)Ordered By: Yanira Barahona on 01-25-2025 Potassium (Unsp spec) [Mass/Vol] 3.8 mmol/L 3.3-5.1 [facility] RBC Auto (Bld) [#/Vol]Ordere d By: Yanira Barahona on 01-25-2025 RBC (Bld) [#/Vol] 4.57 10*6/uL 4.2-5.4 [facility] Serum creatinine measurement (mass/volume)Ordered By: Yanira Barahona on 01-25-2025 Creatinine [Mass/Vol] 0.60 mg/dL Low 0.70-1.20 [facility] Serum glucose measurement (m ass/volume)Ordered By: Yanira Barahona on 01-25-2025 Glucose [Mass/Vol] 89 mg/dL 70-99 [facility] Serum or plasma calcium ralph urement (mass/volume)Ordered By: Yanira Barahona on 01-25-2025 Calcium [Mass/Vol] 9.5 mg/dL 7.6-11.0 [facility] Serum or plasma urea nitroge n measurement (mass/volume)Ordered By: Yanira Barahona on 01-25-2025 Urea nitrogen [Mass/Vol] 11 mg/dL 4-19 [facility] Sodium levelOrdered By: Tr Barahona on 01-25-2025 Sodium [Moles/Vol] 143 mmol/L 133-145 [facility] White blood cell (WBC) count Ordered By: Yanira Barahona on 01-25-2025 WBC (Bld) [#/Vol] 6.9 10*3/uL 4.4-11.0 [facility] Laboratory - Chemistry and C hemistry - challengeOrdered By: Yanira Barahona on 01-21-2025 Bilirubin Ql (U) Negative [facility] Glucose Ql (U) Negative [facility] Ketones Ql (U) Negative [facility] pH (U) 6 [pH] [facility] Specific gravity (U) [Rel density] 1.020 [facility] Urobilinogen (U) [Mass/Vol] 0.3639723 mg/dL [facility] Laboratory - Hematology and Cell countsOrdered By: Yanira Barahona on 01-21-2025 Hemoglobin Ql (U) Large [facility] Laboratory - UrinalysisOrder ed By: Yanira Barahona on 01-21-2025 Nitrite Ql (U) Negative [facility] Protein Ql (U) 3+ [facility] No Panel InformationOrdered By: Yanira Barahona on 01-21-2025 Urine Leukocytes Positive [facility] Urine Non-Hemolyzed Blood Negative [facility] Office Visit Reporton 2024 Office Visit Report [facility] [place] [address] OFFICE VISIT Date of Service: 01/21/25 MR#: [id number] Acct: [id number] Patient: SUELLEN LONG Rep #: [id number] : 1950 Provider: Dr. Yanira Morin i, MD Age/Sex: 74/F Location: [facility] Status: Signed Intake Vital Signs 01/12/25 12:02 [...] Sykes on 01/21/25 13:51 Off Ur Spec [facility] 1.020 Last Edit by Zofia Sykes on [...] fallen in the past year?: No 01/25/25 3925 Date Yanira Raya Signature: Date (if applicable) CC: [facility] MR/PAT.Waqar 01-20-2025 MR/PAT.[facility] Medical Records Department [address] [place] [address] PAT - Anesthesia 01/20/25 1155 MR#: [id number] Acct: [id number] Name: SUELLEN LONG Rep #: [id number] : 1950 74 From: Nikolay Zapata MD PCP: Dr. 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:PRE [facility] Y Race: C Location: [facility] Pre-Assessment Diagnosis/Proposed Procedure Planned Operative Procedure(s): CYSTO LEFT URETEROSCOPY LASER LITHOTRIPSY STONE BASKET EXTRACTION Anesthesia History Anesthesia History - occ med physician: Anesthesia History - occ med physician Hx Hospitalization No 01/20/25 11:26 Any Problems [...] take am of surgery PONV PONV - occ med physician: PONV - occ med physician Female Yes 01/20/25 11:26 HX of Motion Sickness No 01/20/25 11:26 HX of N/V After Surgery No 01/20/25 11:26 Non-Smoker Yes 01/20/25 11:26 Duration of Surgery greater Yes 01/20/25 11:26 than 60 minutes Number of Risk Factors 3 01/20/25 11:26 PONV Score Moderate Risk 01/20/25 11:26 Height Weight Height Weight: Anesthesia: Height Weight Height 5 ft 01/12/25 12:02 Respiratory Assessment Respiratory Assessment - occ med physician: Respiratory Tract Infection Hx - occ med physician Hx Respiratory Tract Infection No 01/20/25 11:26 STOP Sleep Apnea STOP Sleep Apnea - occ med physician: STOP Sleep Apnea - occ med physician Hx Hypertension Yes: CONTROLLED WITH MED 01/20/25 [...] Tobacco Use History Tobacco Use History - occ med physician: Tobacco Use History - occ med physician Tobacco Use Smoking Status Former smoker 01/20/25 11:26 Hx Tobacco Use No 01/20/25 11:26 Years Smoking Packs Smoked per Day Smoking Cessation Date was No - quit smoking greater 01/20/25 11:26 within the last 15 years than 15 years ago Hx Smoking Cessation Date 09/20/76 01/20/25 11:26 Hx Smoking Cessation No 01/20/25 11:26 Counseling Hematologic Medial History Hematologic Hx - occ med physician: 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 Normal [facility] Abdomen Single Viewon 2024 Abdomen Single View [facility] Imaging Services [address] [place] [address] Abdomen Single View MR#: [id number] Acct: [id number] Name: SUELLEN LONG Rep #: [id number] : 1950 F 74 From: Haider Huffman MD PCP: Dr. 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: REG CLI Study: Abdomen Single View Date of Exam: 01/12/25 Exam# [id number] Ordering Dr: Yanira Barahona MD PROCEDURE: ABDOMEN [...] 3. Other findings as noted. Reading Location: [id number] CC: Dr. Yanira Barahona MD; Dr. Clyde Linda MD Overhead Foreman: Signed Normal [facility] Laboratory - Chemistry and C hemistry - challengeOrdered By: Yanira Barahona on 01-12-2025 Bilirubin Ql (U) Negative [facility] Glucose Ql (U) Negative [facility] Ketones Ql (U) Negative [facility] pH (U) 5.5 [pH] [facility] Specific gravity (U) [Rel density] 1.015 [facility] Urobilinogen (U) [Mass/Vol] 0.3069688 mg/dL [facility] Laboratory - Hematology and Cell countsOrdered By: Yanira Barahona on 01-12-2025 Hemoglobin Ql (U) Trace [facility] Laboratory - Specimen inform ationOrdered By: Yanira Barahona on 01-12-2025 Color (U) YELLOW [facility] Laboratory - UrinalysisOrder ed By: Yanira Barahona on 01-12-2025 Nitrite Ql (U) Negative [facility] Protein Ql (U) Trace [facility] MR/BMS.BUSon 01-12-2025 MR/BMS.BUS [facility] [address], [address] [place] [address] OFFICE VISIT Date of Service: 01/12/25 MR#: [id number] Acct: [id number] Name: SUELLEN LONG Rep #: [id number] : 1950 Provider: Dr. Yanira Morin i, MD Age/Sex: 74/F Location[facility] Status: Signed Intake Vital Signs 11/26/24 11:16 01/12/25 12:02 Height 5 ft 5 ft Weight: 140 lb BMI 27.3 BP 126/78 H Pulse 62 Temp 98.1 F Intake Visit Reasons: KUB BEFORE APPT. STENT REMOVAL Chief Complaint: possible stent removal Cutter Banana Room Required: No Is patient in pain?: No [...] mg PO QHS 11/12/24 01/12/25 Hist ory llidsttb-ctae-djrr 8 mg-folic 400 1 tab PO DAILY [...] change i (more content not included)... Normal [facility] No Panel InformationOrdered By: Yanira Barahona on 01-12-2025 Urine Bacteria Small [facility] Urine Leukocytes Positive [facility] Comment on above: 125 Urine Microscopic RBC Moderate [facility] Urine Microscopic WBC Moderate [facility] Discharge Instructionon 08-0 Discharge Instruction [facility] Medical Records Department [address] [place] [address] Instructions for Home/Discharge Instructions 11/26/24 1249 MR#: [id number] Acct: [id number] Name: SUELLEN LONG Rep #: [id number] : 1950 74 From: Yanira Barahona MD PCP: Dr. 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:REG [facility] Discharge Instructions Diet Discharge Diet: No restrictions [...] Care Provider: Clyde Linda Instructions Print Language: Finnish Discharge Orders/Prescription s Prescriptions: New phenazopyridine 200 [...] CC: Dr. Clyde Linda MD Signed Normal [facility] MR/POSTOP.[facility] 11-26-2024 MR/POSTOP.[facility] Medical Records Department [address] [place] [address] Anesthesia Postop Eval I 11/26/24 1419 MR#: [id number] Acct: [id number] Name: SUELLEN LONG Rep #: [id number] : 1950 74 From: Indra Garcia CRNA PCP: Dr. 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:REG SDC Y Race: C Location: [place] [address] Anesthesia: Postop Eval I Current Vital Signs [...] completed: Yes 11/26/24 1420 Date Indra Garcia PLATE FILLER Cosigner Signature: Date CC: Signed Normal [facility] MR/CJQCVDQQ0qu 11-26-2024 [facility] Medical Records Department [address] [place] [address] Anesthesia Postop Eval II 11/26/24 1512 MR#: [id number] Acct: [id number] Name: SUELLEN LONG Rep #: [id number] : 1950 74 From: Pankaj James MD PCP: Dr. 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:REG [facility] Y Race: C Location: [place] [address] Anesthesia Postop Eval I Sum Postop Eval Completion status Anesthesia document: Postop Eval 1 completed: Yes Anesthesia Postop Eval I Summary Anesthesia Postop Eval I Summary: Anesthesia Postop Eval I: Assessment Summary Airway patent Yes 11/26/24 14:20 PLATE FILLER.MDOT Spontaneous unlabored Yes 11/26/24 14:20 PLATE FILLER.MDOT respirations Mental status Awake,Calm 11/26/24 14:20 PLATE FILLER.MDOT nausea No 11/26/24 14:20 PLATE FILLER.MDOT Vomiting No 11/26/24 14:20 PLATE FILLER.MDOT Anesthesia Postop Eval I: Fluid Summary Crystalloid volume administer 800 11/26/24 14:20 PLATE FILLER.MDOT (ml) Colloids volume administered ( ml) Blood [...] MD Cosigner Signature: Date CC: Signed Normal [facility] Operative Reporton 5 Operative Report [facility] Medical Records Department [address] [place] [address] Operative Report 11/26/24 1251 MR#: [id number] Acct: [id number] Name: SUELLEN LONG Rep #: [id number] : 1950 74 From: Yanira Barahona MD PCP: Dr. 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:[facility] Location: [place] [address] Operative Report (Standard) Operative Information Date of Procedure: 11/26/24 Pre-Operative Diagnosis: Left renal and ureteropelvic junction stones and hydronephrosis Post-Operative Diagnosis: Same Surgery/Procedure Performed: Cystoscopy with left ureteral stent insertion, left renal extracorporal shockwave lithotripsy project development director: No Type of Anesthesia: General RN Documented Start/Stop Times: Operation Date: 11/26/24 12:05 Case Time Into Pre-Op 11/26/24 10:40 Out of Pre-Op 11/26/24 12:45 Anesthesia Start 11/26/24 12:55 Into Room 11/26/24 12:55 Procedure Start 11/26/24 13:07 Procedure End 11/26/24 14:11 Procedure Start Time: 13:07 Procedure Stop Time: 14:11 Select all DRAINS/GRAFTS/IMPLA NTS that apply: Drains Drain details: 6 Wallisian by 22 cm JJ stent Estimated Blood [...] pelvis as seen on fluoroscopy. A 6 Wallisian 22 cm JJ stent was placed over [...] MD; Dr. Clyde Linda MD Signed Normal [facility] Laboratory - Chemistry and C hemistry - challengeOrdered By: Yanira Barahona on 11-20-2024 Bilirubin Ql (U) Negative [facility] Glucose Ql (U) Negative [facility] Ketones Ql (U) Negative [facility] pH (U) 5 [pH] [facility] Specific gravity (U) [Rel density] 1.020 [facility] Urobilinogen (U) [Mass/Vol] Negative [facility] Laboratory - Hematology and Cell countsOrdered By: Yanira Barahona on 11-20-2024 Hemoglobin Ql (U) Small [facility] Laboratory - UrinalysisOrder ed By: Yanira Barahona on 11-20-2024 Nitrite Ql (U) Positive [facility] Protein Ql (U) 1+ [facility] MR/Harsha 11-20-2024 MR/SONIA [facility] [address], [address] [place] [address] OFFICE VISIT Date of Service: 11/20/24 MR#: [id number] Acct: [id number] Name: SUELLEN LONG Rep #: [id number] : 1950 Provider: Dr. Yanira Morin i, MD Age/Sex: 74/F [place] [facility] [place] Status: Signed with Addenda ADDENDUM by Dr. [...] Complaint: preoperative visit with urine and consent Cutter Banana Room Required: No Accompanied by: Self Is patient [...] mg PO QHS 11/12/24 11/20/24 Hist ory tepjgmbv-ndwh-tvlh 8 mg-folic 400 1 tab PO DAILY [...] sweats, weakness, (more content not included)... Normal [facility] MR/PAT.MOon 11-20-2024 MR/PAT.[facility] Medical Records Department [address] [place] [address] PAT - Anesthesia 11/20/241952 MR#: [id number] Acct: [id number] Name: SUELLEN LONG Rep #: [id number] : 1950 74 From: Kevin Govea MD PCP: Dr. 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:PRE [facility] Y Race: C Location: [facility] Pre-Assessment Diagnosis/Proposed Procedure Planned Operative Procedure(s): CYSTO LEFT RENAL ESWL LEFT STENT INSERTION Anesthesia History Anesthesia History - occ med physician: Anesthesia History - occ med physician Hx Hospitalization No 11/12/24 10:47 Any Problems [...] take am of surgery PONV PONV - occ med physician: PONV - occ med physician Female Yes 11/12/24 10:47 HX of Motion Sickness No 11/12/24 10:47 HX of N/V After Surgery No 11/12/24 10:47 Non-Smoker Yes 11/12/24 10:47 Duration of Surgery greater Yes 11/12/24 10:47 than 60 minutes Number of Risk Factors 3 11/12/24 10:47 PONV Score Moderate Risk 11/12/24 10:47 Height Weight Height Weight: Anesthesia: Height Weight Height 5 ft 10/07/23 08:00 Respiratory Assessment Respiratory Assessment - occ med physician: Respiratory Tract Infection Hx - occ med physician Hx Respiratory Tract Infection No 11/12/24 10:47 STOP Sleep Apnea STOP Sleep Apnea - occ med physician: STOP Sleep Apnea - occ med physician Hx Hypertension Yes: CONTROLLED WITH MED 11/12/24 [...] Tobacco Use History Tobacco Use History - occ med physician: Tobacco Use History - occ med physician Tobacco Use Smoking Status Former smoker 11/12/24 10:47 Hx Tobacco Use No 11/12/24 10:47 Years Smoking Packs Smoked per Day Smoking Cessation Date was No - quit smoking greater 11/12/24 10:47 within the last 15 years than 15 years ago Hx Smoking Cessation Date 09/20/76 11/12/24 10:47 Hx Smoking Cessation No 11/12/24 10:47 Counseling Hematologic Medial History Hematologic Hx - occ med physician: 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 Normal [facility] No Panel InformationOrdered By: Yanira Barahona on 11-20-2024 Urine Leukocytes Positive [facility] Urine Non-Hemolyzed Blood Negative [facility] Electrocardiogram reportOrde red By: Kyaw Perry on 11-18-2024 EKG study [facility] Cardiovascular Services [address] [place] [address] 12 Lead EKG 11/17/24 1342 MR#: [id number] Acct: [id number] Name: SUELLEN LONG Rep #:[id number] : 1950 74 From: Kyaw Perry MD Attending Dr: Dr. Yanira Barahona MD Status: PRE SDC Ordering Dr: Yanira Barahona MD Date: 11/17/24 Location: [facility] Sex: F C Admitted: Test Reason : [...] Abnormal ECG Confirmed by ORLANDO PADILLA, KYAW ([id number]), digital editor LANDEN CONNOR ([id number]) on 58:38:55 AM Referred By: Yanira Barahona Confirmed By: KYAW PERRY MD 11/18/24 0838 Date _ Kyaw Perry MD CC: Dr. Yanira Barahona MD; Dr. Clyde Linda MD ~ Signed [facility] Other 12 Lead EKGon 11-17-2024 12 Lead EKG [facility] Cardiovascular Services [address] [place] [address] 12 Lead EKG 11/17/24 1342 MR#: [id number] Acct: [id number] Name: SUELLEN LONG Rep #: [id number] : 1950 74 From: Kyaw Perry MD Attending Dr: Dr. Yanira Barahona MD Status: PRE SDC Ordering Dr: Yanira Barahona MD Date: 11/17/24 Location: [facility] Sex: F C Admitted: Test Reason : [...] Abnormal ECG Confirmed by ORLANDO PADILLA, KYAW ([id number]), digital editor LANDEN CONNOR ([id number]) on 11/18/2024 8:38:55 AM Referred By: Yanira Barahona Confirmed By: KYAW PERRY MD 11/18/24837 Date Kyaw Perry MD CC: Dr. Yanira Barahona MD; Dr. Clyde Linda MD Signed Normal [facility] Absolute lymphocyte countOrd ered By: Clyde Linda on 10-28-2024 Lymphocytes Auto (Unsp spec) [#/Vol] 2.21 10*3/uL 0.83-4.51 [facility] Absolute neutrophil countOrd ered By: Clyde Linda on 10-28-2024 Neutrophils (Bld) [#/Vol] 3.9 10*3/uL 2.0-7.7 [facility] Anion gap in Serum or Plasma Ordered By: Clyde Linda on 10-28-2024 Anion gap [Moles/Vol] 12 mmol/L 5-15 [facility] Automated lymphocyte count a s percentage of total leukocytesOrdered By: Clyde Linda on 10-28-2024 Lymphocytes/100 WBC Auto (Unsp spec) 32.7 % 19-41 [facility] BUN/creatinine ratioOrdered By: Clyde Linda on 10-28-2024 Urea nitrogen/Creatinine [Mass ratio] 14.4 mg/mg 10-20 [facility] Basophil percentageOrdered B y: Clyde Linda on 10-28-2024 Basophils/100 WBC (Bld) 1.0 % 0-1 [facility] Bilirubin, totalOrdered By: Clyde Linda on 10-28-2024 Bilirubin [Mass/Vol] 0.43 mg/dL 0.00-1.30 [facility] CBC W/Diff, Automatedon 07-0 9-2024 Absolute Lymph 2.21 X10 3/uL Normal 0.83-4.51 [facility] Comment on above: Order Comment: Order Date: 10/28/24 Order Info: 0184-1 - CBCD Performed By: #### L 100.0100, L500.4050, L501.5200, L500.4100 #### [facility] Laboratory [address] [place], [address] Absolute Neut 3.9 X10 3/uL Normal 2.0-7.7 [facility] Comment on above: Order Comment: Order Date: 10/28/24 Order Info: 0184- - CBCD Performed By: #### L 100.0100, L500.4050, L501.5200, L500.4100 #### [facility] [address] [place], [address] Basophils/100 WBC (Bld) 1.0 % Normal 0-1 [facility] Comment on above: Order Comment: Order Date: 10/28/24 Order Info: 0184- - CBCD Performed By: #### L 100.0100, L500.4050, L501.5200, L500.4100 #### [facility] [address] [place], [address] Eosinophils/100 WBC (Bld) 1.9 % Normal 0-5 [facility] Comment on above: Order Comment: Order Date: 10/28/24 Order Info: 0184-1 - CBCD Performed By: #### L 100.0100, L500.4050, L501.5200, L500.4100 #### [facility] [address] [place], [address] Erythrocyte distribution width (RBC) [Ratio] 14.2 % Normal 11.6-14.6 [facility] Comment on above: Order Comment: Order Date: 10/28/24 Order Info: 0184-1 - CBCD Performed By: #### L 100.0100, L500.4050, L501.5200, L500.4100 #### [facility] [address] [place], [address] Hematocrit (Bld) [Volume fraction] 39.7 % Normal 37-47 [facility] Comment on above: Order Comment: Order Date: 10/28/24 Order Info: 0184-1 - CBCD Performed By: #### L 100.0100, L500.4050, L501.5200, L500.4100 #### [facility] [address] [place], [address] Hemoglobin (Bld) [Mass/Vol] 12.9 g/dL Normal 12.0-15.0 [facility] Comment on above: Order Comment: Order Date: 10/28/24 Order Info: 0184-1 - CBCD Performed By: #### L 100.0100, L500.4050, L501.5200, L500.4100 #### [facility] [address] [place], [address] IG% 0.100 Normal 0.0-0.9 [facility] Comment on above: Order Comment: Order Date: 10/28/24 Order Info: 0184-1 - CBCD Result Comment: IG% - Immature Granulocytes (promyelocytes, myelocytes and metamyelocytes) > 1% indicates that a LEFT SHIFT is Present. Performed By: #### L 100.0100, L500.4050, L501.5200, L500.4100 #### [facility] [address] [place], [address] Lymphocytes/100 WBC (Bld) 32.7 % Normal 19-41 [facility] Comment on above: Order Comment: Order Date: 10/28/24 Order Info: 0184-1 - CBCD Performed By: #### L 100.0100, L500.4050, L501.5200, L500.4100 #### [facility] [address] [place], [address] MCH (RBC) [Entitic mass] 29.1 pg Normal 27.0-32.0 [facility] Comment on above: Order Comment: Order Date: 10/28/24 Order Info: 0184-1 - CBCD Performed By: #### L 100.0100, L500.4050, L501.5200, L500.4100 #### [facility] [address] [place], [address] MCHC (RBC) [Mass/Vol] 32.5 g/dL Normal 32-36 [facility] Comment on above: Order Comment: Order Date: 10/28/24 Order Info: 0184-1 - CBCD Performed By: #### L 100.0100, L500.4050, L501.5200, L500.4100 #### [facility] [address] [place], [address] MCV (RBC) [Entitic vol] 89.4 fL Normal 81-99 [facility] Comment on above: Order Comment: Order Date: 10/28/24 Order Info: 0184-1 - CBCD Performed By: #### L 100.0100, L500.4050, L501.5200, L500.4100 #### [facility] [address] [place], [address] Monocytes/100 WBC (Bld) 6.8 % Normal 0-10 [facility] Comment on above: Order Comment: Order Date: 10/28/24 Order Info: 0184-1 - CBCD Performed By: #### L 100.0100, L500.4050, L501.5200, L500.4100 #### [facility] [address] [place], [address] Neutrophils/100 WBC (Bld) 57.5 % Normal 47-70 [facility] Comment on above: Order Comment: Order Date: 10/28/24 Order Info: 0184-1 - CBCD Performed By: #### L 100.0100, L500.4050, L501.5200, L500.4100 #### [facility] [address] [place], [address] Nucleated RBC (Bld) [#/Vol] 0 10*3/uL Normal 0-5 [facility] Comment on above: Order Comment: Order Date: 10/28/24 Order Info: 0184-1 - CBCD Performed By: #### L 100.0100, L500.4050, L501.5200, L500.4100 #### [facility] [address] [place], [address] Platelet mean volume (Bld) [Entitic vol] 11.5 fL Normal 6.2-12.0 [facility] Comment on above: Order Comment: Order Date: 10/28/24 Order Info: 0184-1 - CBCD Performed By: #### L 100.0100, L500.4050, L501.5200, L500.4100 #### [facility] [address] [place], [address] Platelets (Bld) [#/Vol] 278 10*3/uL Normal 150-450 [facility] Comment on above: Order Comment: Order Date: 10/28/24 Order Info: 0184-1 - CBCD Performed By: #### L 100.0100, L500.4050, L501.5200, L500.4100 #### [facility] [address] [place], [address] RBC (Bld) [#/Vol] 4.44 10*6/uL Normal 4.2-5.4 [facility] Comment on above: Order Comment: Order Date: 10/28/24 Order Info: 0184-1 - CBCD Performed By: #### L 100.0100, L500.4050, L501.5200, L500.4100 #### [facility] [address] [place], [address] RDW SD 45.8 fl High 35.1-43.9 [facility] Comment on above: Order Comment: Order Date: 10/28/24 Order Info: 0184-1 - CBCD Performed By: #### L 100.0100, L500.4050, L501.5200, L500.4100 #### [facility] [address] [place], [address] WBC (Bld) [#/Vol] 6.8 10*3/uL Normal 4.4-11.0 [facility] Comment on above: Order Comment: Order Date: 10/28/24 Order Info: 0184-1 - CBCD Performed By: #### L 100.0100, L500.4050, L501.5200, L500.4100 #### [facility] [address] [place], [place], [address] Calculated very low density lipoprotein (VLDL) cholesterol measurementOrdered By: Clyde Linda on 10-28-2024 Calculated very low density lipoprotein (VLDL) cholesterol measurement 34 mg/dL 5-40 [facility] Carbon dioxide, total [Moles /volume] in Central venous bloodOrdered By: Clyde Linda on 10-28-2024 CO2 [Moles/Vol] 22.9 mmol/L 21.0-32.0 [facility] Chloride assayOrdered By: Key Linda on 10-28-2024 Chloride [Moles/Vol] 109 mmol/L High 98-108 [facility] Comprehensive Metabolic Prof ilon 10-28-2024 Albumin [Mass/Vol] 4.3 g/dL Normal 3.4-4.8 [facility] Comment on above: Order Comment: Order Date: 10/28/24 Order Info: [id number] - CMP Order Info: [id number] - LIPID Order Info: [id number] - MG Performed By: #### L 100.0100, L500.4050, L501.5200, L500.4100 #### [facility] [address] [place], [address] Albumin/Globulin [Mass ratio] 1.5 {ratio} Normal 0.9-2.4 [facility] Comment on above: Order Comment: Order Date: 10/28/24 Order Info: [id number]- - CMP Order Info: [id number] - LIPID Order Info: [id number] - MG Performed By: #### L 100.0100, L500.4050, L501.5200, L500.4100 #### [facility] [address] [place], [address] ALK PHOS 60 U/L Normal 35-104 [facility] Comment on above: Order Comment: Order Date: 10/28/24 Order Info: [id number]- - CMP Order Info: [id number] - LIPID Order Info: [id number] - MG Performed By: #### L 100.0100, L500.4050, L501.5200, L500.4100 #### [facility] [address] [place], [address] ALT [Catalytic activity/Vol] 21 U/L Normal <=34 [facility] Comment on above: Order Comment: Order Date: 10/28/24 Order Info: [id number] - CMP Order Info: [id number] - LIPID Order Info: [id number] - MG Performed By: #### L 100.0100, L500.4050, L501.5200, L500.4100 #### [facility] [address] [place], [address] AST [Catalytic activity/Vol] 22 U/L Normal <=31 [facility] Comment on above: Order Comment: Order Date: 10/28/24 Order Info: 1 - CMP Order Info: [id number] - LIPID Order Info: [id number] - MG Performed By: #### L 100.0100, L500.4050, L501.5200, L500.4100 #### [facility] [address] [place], [address] Bilirubin [Mass/Vol] 0.43 mg/dL Normal 0.00-1.30 [facility] Comment on above: Order Comment: Order Date: 10/28/24 Order Info: [id number] - CMP Order Info: [id number] - LIPID Order Info: [id number] - MG Performed By: #### L 100.0100, L500.4050, L501.5200, L500.4100 #### [facility] [address] [place], [address] BUN/CRE 14.4 RATIO Normal 10-20 [facility] Comment on above: Order Comment: Order Date: 10/28/24 Order Info: [id number] - CMP Order Info: - LIPID Order Info: [id number] - MG Performed By: #### L 100.0100, L500.4050, L501.5200, L500.4100 #### [facility] [address] [place], [address] Calcium [Mass/Vol] 9.3 mg/dL Normal 7.6-11.0 [facility] Comment on above: Order Comment: Order Date: 10/28/24 Order Info: [id number] - CMP Order Info: [id number] - LIPID Order Info: [id number] - MG Performed By: #### L 100.0100, L500.4050, L501.5200, L500.4100 #### [facility] [address] [place], [address] Chloride [Moles/Vol] 109 mmol/L High 98-108 [facility] Comment on above: Order Comment: Order Date: 10/28/24 Order Info: [id number] - CMP Order Info: [id number] - LIPID Order Info: [id number] - MG Performed By: #### L 100.0100, L500.4050, L501.5200, L500.4100 #### [facility] [address] [place], [address] CO2 [Moles/Vol] 22.9 mmol/L Normal 21.0-32.0 [facility] Comment on above: Order Comment: Order Date: 10/28/24 Order Info: 07- - CMP Order Info: [id number] - LIPID Order Info: [id number] - MG Performed By: #### L 100.0100, L500.4050, L501.5200, L500.4100 #### [facility] [address] [place], [address] Creatinine [Mass/Vol] 0.73 mg/dL Normal 0.70-1.20 [facility] Comment on above: Order Comment: Order Date: 10/28/24 Order Info: [id number] - CMP Order Info: [id number] - LIPID Order Info: [id number] - MG Performed By: #### L 100.0100, L500.4050, L501.5200, L500.4100 #### [facility] [address] [place], [place], [id number] GAP 12 Normal 5-15 [facility] Comment on above: Order Comment: Order Date: 10/28/24 Order Info: [id number] - CMP Order Info: [id number] - LIPID Order Info: [id number] - MG Performed By: #### L 100.0100, L500.4050, L501.5200, L500.4100 #### [facility] [address] [place], [place], [address] GFR/1.73 sq M.predicted among non-blacks MDRD (S/P/Bld) [Vol rate/Area] 85 mL/min/{1.73_m2} Normal >60 [facility] Comment on above: Order Comment: Order Date: 10/28/24 Order Info: [id number] - CMP Order Info: [id number] - LIPID Order Info: [id number] - MG Result Comment: mL/m in/1.73m2 CKD-EPI Creatinine Equation (2020) Performed By: #### L 100.0100, L500.4050, L501.5200, L500.4100 #### [facility] [address] [place], [address] Globulin (S) [Mass/Vol] 2.9 g/dL Normal 2.2-4.2 [facility] Comment on above: Order Comment: Order Date: 10/28/24 Order Info: [id number] - CMP Order Info: [id number] - LIPID Order Info: [id number] - MG Performed By: #### L 100.0100, L500.4050, L501.5200, L500.4100 #### [facility] [address] [place], [address] Glucose [Mass/Vol] 95 mg/dL Normal 70-99 [facility] Comment on above: Order Comment: Order Date: 10/28/24 Order Info: [id number] - CMP Order Info: [id number] - LIPID Order Info: [id number] - MG Performed By: #### L 100.0100, L500.4050, L501.5200, L500.4100 #### [facility] [address] [place], [address] Potassium [Moles/Vol] 3.9 mmol/L Normal 3.3-5.1 [facility] Comment on above: Order Comment: Order Date: 10/28/24 Order Info: [id number] - CMP Order Info: [id number] - LIPID Order Info: [id number] - MG Performed By: #### L 100.0100, L500.4050, L501.5200, L500.4100 #### [facility] [address] [place], [address] Sodium [Moles/Vol] 143 mmol/L Normal 133-145 [facility] Comment on above: Order Comment: Order Date: 10/28/24 Order Info: [id number] - CMP Order Info: [id number] - LIPID Order Info: [id number] - MG Performed By: #### L 100.0100, L500.4050, L501.5200, L500.4100 #### [facility] [address] [place], [address] T PROT 7.2 g/dL Normal 5.9-8.4 [facility] Comment on above: Order Comment: Order Date: 10/28/24 Order Info: [id number] - CMP Order Info: [id number] - LIPID Order Info: [id number] - MG Performed By: #### L 100.0100, L500.4050, L501.5200, L500.4100 #### [facility] [address] [place], [address] Urea nitrogen [Mass/Vol] 11 mg/dL Normal 4-19 [facility] Comment on above: Order Comment: Order Date: 10/28/24 Order Info: [id number] - CMP Order Info: [id number] - LIPID Order Info: [id number] - MG Performed By: #### L 100.0100, L500.4050, L501.5200, L500.4100 #### [facility] [address] [place], [address] Eosinophil percentageOrdered By: Clyde Linda on 10-28-2024 Eosinophils/100 WBC (Bld) 1.9 % 0-5 [facility] Erythrocyte distribution wid th ratioOrdered By: Clyde Linda on 10-28-2024 Erythrocyte distribution width (RBC) [Ratio] 14.2 % 11.6-14.6 [facility] Erythrocyte distribution wid th standard deviationOrdered By: Clyde Linda on 10-28-2024 Erythrocyte distribution width (RBC) [Ratio] 45.8 fl High 35.1-43.9 [facility] Glomerular filtration rate ( GFR) estimation/1.73 sq m using serum, plasma, or whole bOrdered By: Clyde Linda on 10-28-2024 GFR/1.73 sq M.predicted among non-blacks MDRD (S/P/Bld) [Vol rate/Area] 85 mL/min/{1.73_m2} >60 [facility] Comment on above: mL/min/1.73m2 CKD-EP I Creatinine Equation (2020) Hematocrit Auto (Bld) [Volum e fraction]Ordered By: Clyde Linda on 10-28-2024 Hematocrit (Bld) [Volume fraction] 39.7 % 37-47 [facility] Hemoglobin measurementOrdere d By: Clyde Linda on 10-28-2024 Hemoglobin (Bld) [Mass/Vol] 12.9 g/dL 12.0-15.0 [facility] Immature granulocytes/100 WB C Auto (Bld)Ordered By: Clyde Linda on 10-28-2024 Immature granulocytes/100 WBC (Bld) 0.100 % 0.0-0.9 [facility] Comment on above: IG% - Immature Granu locytes (promyelocytes, myelocytes and metamyelocytes) > 1% indicates that a LEFT SHIFT is Present. LDL calc ser/plasOrdered By: Clyde Linad on 10-28-2024 Cholesterol in LDL [Mass/Vol] 83 mg/dL [facility] Comment on above: Ctrdshimrp=868-453 m g/dL & Higher Nntj=045 mg/dL or greater Laboratory - Chemistry and C hemistry - challengeOrdered By: Clyde Linda on 10-28-2024 AST [Catalytic activity/Vol] 22 U/L <32 [facility] Lipid Profileon 10-28-2024 CHOL:HDL 3.58 Normal [facility] Comment on above: Order Comment: Order Date: 10/28/24 Order Info: [id number] - CMP Order Info: [id number] - LIPID Order Info: [id number] - MG Performed By: #### L 100.0100, L500.4050, L501.5200, L500.4100 #### [facility] [address] [place], [address] Cholesterol [Mass/Vol] 163 mg/dL Normal <=200 [facility] Comment on above: Order Comment: Order Date: 10/28/24 Order Info: [id number] - CMP Order Info: [id number] - LIPID Order Info: [id number] - MG Result Comment: Chol esterol level, Desirable <200 mg/dL Borderline high cholesterol 200-239 mg/dL High cholesterol >=240 mg/dL Recommendations of the NCEP Adult Treatment Panel for the following risk-cutoff thresholds for the [place] population. Performed By: #### L 100.0100, L500.4050, L501.5200, L500.4100 #### [facility] [address] [place], [address] Cholesterol in HDL [Mass/Vol] 46 mg/dL Normal [facility] Comment on above: Order Comment: Order Date: 10/28/24 Order Info: [id number] - CMP Order Info: [id number] - LIPID Order Info: [id number] - MG Result Comment: Patricia onal Cholesterol Education Program (NCEP) guidelines: <40 mg/dL: Low HDL-cholesterol (major risk factor for CHD) >= 60 mg/dL: High HDL-cholesterol (negative risk factor for CHD) HDL-cholesterol is affected by a number of factors, e.g. smoking, exercise, hormones, sex and age. Performed By: #### L 100.0100, L500.4050, L501.5200, L500.4100 #### [facility] [address] [place], [address] Cholesterol in LDL [Mass/Vol] 83 mg/dL Normal [facility] Comment on above: Order Comment: Order Date: 10/28/24 Order Info: [id number] - CMP Order Info: [id number] - LIPID Order Info: [id number] - MG Result Comment: Bord mlrnyy=022-150 mg/dL Higher Zvni=365 mg/dL or greater Performed By: #### L 100.0100, L500.4050, L501.5200, L500.4100 #### [facility] [address] [place], [address] Cholesterol in VLDL [Mass/Vol] 34 mg/dL Normal 5-40 [facility] Comment on above: Order Comment: Order Date: 10/28/24 Order Info: [id number] - CMP Order Info: [id number] - LIPID Order Info: [id number] - MG Performed By: #### L 100.0100, L500.4050, L501.5200, L500.4100 #### [facility] [address] [place], [address] Triglyceride [Mass/Vol] 172 mg/dL Normal [facility] Comment on above: Order Comment: Order Date: 10/28/24 Order Info: [id number] - CMP Order Info: [id number] - LIPID Order Info: [id number] - MG Result Comment: The drugs N-Acetylcysteine and Metamizole may falsely depress this assay. Normal range: <150 mg/dL Borderline High: 150-199 mg/dL High: 200-499 mg/dL Very High: >500 mg/dL Performed By: #### L 100.0100, L500.4050, L501.5200, L500.4100 #### [facility] [address] [place], [place], [id number] MCV (mean corpuscular volume ) determinationOrdered By: Clyde Linda on 10-28-2024 MCV (RBC) [Entitic vol] 89.4 fL 81-99 [facility] Magnesiumon 10-28-2024 Magnesium [Mass/Vol] 2.2 mg/dL Normal 1.5-2.2 [facility] Comment on above: Order Comment: Order Date: 10/28/24 Order Info: [id number] - CMP Order Info: [id number] - LIPID Order Info: [id number] - MG Performed By: #### L 100.0100, L500.4050, L501.5200, L500.4100 #### [facility] [address] [place], [place], [address] Magnesium measurement (mass/ volume)Ordered By: Clyde Linda on 10-28-2024 Magnesium (Unsp spec) [Mass/Vol] 2.2 mg/dL 1.5-2.2 [facility] Mean corpuscular hemoglobin (MCH) determinationOrdered By: Clyde Linda on 10-28-2024 MCH (RBC) [Entitic mass] 29.1 pg 27.0-32.0 [facility] Mean corpuscular hemoglobin concentration (MCHC) determinationOrdered By: Clyde Linda on 10-28-2024 MCHC (RBC) [Mass/Vol] 32.5 g/dL 32-36 [facility] Mean platelet volume determi nationOrdered By: Clyde Linda on 10-28-2024 Platelet mean volume (Bld) [Entitic vol] 11.5 fL 6.2-12.0 [facility] Monocyte percentageOrdered B y: Clyde Linda on 10-28-2024 Monocytes/100 WBC (Bld) 6.8 % 0-10 [facility] Neutrophil percentageOrdered By: Clyde Linda on 10-28-2024 Neutrophils/100 WBC (Bld) 57.5 % 47-70 [facility] Nucleated red blood cell per centageOrdered By: Clyde Linda on 10-28-2024 Nucleated RBC/100 WBC (Bld) [Ratio] 0 % 0-5 [facility] Platelet countOrdered By: Key Linda on 10-28-2024 Platelets (Bld) [#/Vol] 278 10*3/uL 150-450 [facility] Potassium measurement (mass/ volume)Ordered By: Clyde Linda on 10-28-2024 Potassium (Unsp spec) [Mass/Vol] 3.9 mmol/L 3.3-5.1 [facility] RBC Auto (Bld) [#/Vol]Ordere d By: Clyde Linda on 10-28-2024 RBC (Bld) [#/Vol] 4.44 10*6/uL 4.2-5.4 [facility] Screening total cholesterol/ high density lipoprotein (HDL) cholesterol ratioOrdered By: Clyde Linda on 10-28-2024 Cholesterol.total/Choles terol in HDL [Mass ratio] 3.58 {ratio} [facility] Serum creatinine measurement (mass/volume)Ordered By: Clyde Linda on 10-28-2024 Creatinine [Mass/Vol] 0.73 mg/dL 0.70-1.20 [facility] Serum globulin measurementOr dered By: Clyde Linda on 10-28-2024 Globulin (S) [Mass/Vol] 2.9 g/dL 2.2-4.2 [facility] Serum glucose measurement (m ass/volume)Ordered By: Clyde Linda on 10-28-2024 Glucose [Mass/Vol] 95 mg/dL 70-99 [facility] Serum or plasma alanine bennett otransferase (ALT) measurementOrdered By: Clyde Linda on 10-28-2024 ALT [Catalytic activity/Vol] 21 U/L <35 [facility] Serum or plasma albumin ralph urement (mass/volume)Ordered By: Clyde Linda on 10-28-2024 Albumin [Mass/Vol] 4.3 g/dL 3.4-4.8 [facility] Serum or plasma albumin/glob ulin mass ratioOrdered By: Clyde Linda on 10-28-2024 Albumin/Globulin [Mass ratio] 1.5 {ratio} 0.9-2.4 [facility] Serum or plasma alkaline gavi sphatase measurementOrdered By: Clyde Linda on 10-28-2024 ALP [Catalytic activity/Vol] 60 U/L 35-104 [facility] Serum or plasma calcium ralph urement (mass/volume)Ordered By: Clyde Linda on 10-28-2024 Calcium [Mass/Vol] 9.3 mg/dL 7.6-11.0 [facility] Serum or plasma cholesterol in HDL measurement (mass/volume)Ordered By: Clyde Linda on 10-28-2024 Cholesterol in HDL [Mass/Vol] 46 mg/dL >40 [facility] Comment on above: National Cholesterol Education Program (NCEP) guidelines:<40 mg/dL: Low HDL-cholesterol (major risk factor for CHD)>= 60 mg/dL: High HDL-cholesterol (negative risk factor for CHD)HDL-cholesterol is affected by a number of factors, e.g. smoking, exercise, hormones, sex and age. Serum or plasma cholesterol measurement (mass/volume)Ordered By: Clyde Linda on 10-28-2024 Cholesterol [Mass/Vol] 163 mg/dL <201 [facility] Comment on above: Cholesterol level, D esirable <200 mg/dLBorderline high cholesterol 200-239 mg/dLHigh cholesterol >=240 mg/dLRecommendations of the NCEP Adult Treatment Panel for the following risk-cutoff thresholds for the [place] population. Serum or plasma urea nitroge n measurement (mass/volume)Ordered By: Clyde Linda on 10-28-2024 Urea nitrogen [Mass/Vol] 11 mg/dL 4-19 [facility] Sodium levelOrdered By: Clyde Linda on 10-28-2024 Sodium [Moles/Vol] 143 mmol/L 133-145 [facility] Total proteinOrdered By: Anthony Linda on 10-28-2024 Protein [Mass/Vol] 7.2 g/dL 5.9-8.4 [facility] Triglycerides measurementOrd ered By: Clyde iLnda on 10-28-2024 Triglyceride [Mass/Vol] 172 mg/dL <199 [facility] Comment on above: The drugs N-Acetylcy steine and Metamizole may falsely depress this assay. Normal range: <150 mg/dLBorderline High: 150-199 mg/dLHigh: 200-499 mg/dLVery High: >500 mg/dL Vitamin D,25 Hydroxyon 10-28 Vitamin D 25-OH 37.4 ng/mL Normal 30-100 [facility] Comment on above: Order Comment: Order Date: 10/28/24Order Info: [id number] - CMPOrder Info: [id number] - LIPIDOrder Info: [id number] - MG Result Comment: Bruna min D Status Deficiency: <20 ng/mL (50nmol/L) Insufficiency: 20-30 ng/mL (50-75 nmol/L) Sufficiency: 30-100 ng/mL (75-250 nmol/L) Toxicity: >100 ng/mL (>250 nmol/L) Performed By: #### L 506.1001 ####[facility] [address] [place], [place], [id number] White blood cell (WBC) count Ordered By: Clyde Linda on 10-28-2024 WBC (Bld) [#/Vol] 6.8 10*3/uL 4.4-11.0 [facility] Abdomen Single Viewon 2024 Abdomen Single View [facility] Imaging Services [address] [place], [place] [id number] Abdomen Single View MR#: [id number] Acct: [id number] Name: SUELLEN LONG Rep #: [id number] : 1950 F 73 From: Karyn alonso MD PCP: Dr. 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: REG CLI Study: Abdomen Single View Date of Exam: 09/30/24 Exam# [id number] Ordering Dr: Yanira Barahona MD PROCEDURE: ABDOMEN [...] residue in the large bowels. Reading Location: [place] [address] CC: Dr. Yanira Barahona MD; Dr. Clyde Linda MD Overhead Foreman: Signed Normal [facility] Abdomen/Pelvis without Conto n 09-18-2024 Abdomen/Pelvis without Cont [facility] Imaging Services [address] [place] [address] Abdomen/Pelvis without Cont MR#: [id number] Acct: [id number] Name: SUELLEN LONG Rep #: [id number] : 1950 F 73 From: Pk Dominguez PCP: Dr. 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: REG CLI Study: Abdomen/Pelvis without Cont Date of Exam: 08/22 Exam# [id number] Ordering Dr: Yanira Barahona MD PROCEDURE: ABDOMEN/PELVIS [...] lymph nodes may reflect panniculitis. Reading Location: [id number] CC: Dr. Yanira Barahona MD; Dr. Clyde Linda MD Overhead Foreman: Signed Normal [facility] Kidney and Bladderon 025 Kidney and Bladder [facility] Imaging Services [address] [place], [place] [address] Kidney and Bladder MR#: [id number] Acct: [id number] Name: SUELLEN LONG Rep #: [id number] : 1950 F 73 From: Doroteo sousa MD PCP: Dr. 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: REG CLI Study: Kidney and Bladder Date of Exam: 09/01/24 Exam# [id number] Ordering Dr: Yanira Barahona MD PROCEDURE: KIDNEY [...] mm nonobstructive left intrarenal calculus. Reading Location: [id number] CC: Dr. Yanira Barahona MD; Dr. Clyde Linda MD Overhead Foreman: Signed Normal [facility] Urine Cultureon 08-01-2024 [facility] PLEASE ADD CULTURE TO URINE SPECIMEN COLLECTED 07/29/24 PER Escherichia coli [place] Count >100,000 Escherichia coli: REACTION Ampicillin Islt [...] TMP SMX Islt TIMOTHY <=20 S Normal [facility] Comment on above: Performed By: #### L 500.4100, L506.1001, L100.0100, L400.0001, M100.2200 ####[facility] [address] [place], [place], [id number] Urine cultureOrdered By: Anthony Linda on 07-30-2024 Bacteria identified Cx Nom (U) Escherichia coli Abnormal [facility] Absolute lymphocyte countOrd ered By: Clyde Linda on 07-29-2024 Lymphocytes Auto (Unsp spec) [#/Vol] 2.10 10*3/uL 0.83-4.51 [facility] Absolute neutrophil countOrd ered By: Clyde Linda on 07-29-2024 Neutrophils (Bld) [#/Vol] 4.4 10*3/uL 2.0-7.7 [facility] Automated lymphocyte count a s percentage of total leukocytesOrdered By: Clyde Linda on 07-29-2024 Lymphocytes/100 WBC Auto (Unsp spec) 29.3 % 19-41 [facility] Basophil percentageOrdered B y: Clyde Linda on 07-29-2024 Basophils/100 WBC (Bld) 1.1 % High 0-1 [facility] Bilirubin Test strip Ql (U)O rdered By: Clyde Linda on 07-29-2024 Bilirubin Ql (U) Negative Negative [facility] CBC W/Diff, Automatedon 04-0 Absolute Lymph 2.10 X10 3/uL Normal 0.83-4.51 [facility] Comment on above: Performed By: #### L 500.4100, L506.1001, L100.0100, L400.0001, M100.2200 ####[facility] [address] [place], [place], [id number] Absolute Neut 4.4 X10 3/uL Normal 2.0-7.7 [facility] Comment on above: Performed By: #### L 500.4100, L506.1001, L100.0100, L400.0001, M100.2200 ####[facility] [address] [place], [address] Basophils/100 WBC (Bld) 1.1 % High 0-1 [facility] Comment on above: Performed By: #### L 500.4100, L506.1001, L100.0100, L400.0001, M100.2200 ####[facility] [address] [place], [address] Eosinophils/100 WBC (Bld) 2.1 % Normal 0-5 [facility] Comment on above: Performed By: #### L 500.4100, L506.1001, L100.0100, L400.0001, M100.2200 ####[facility] [address] [place], [address] Erythrocyte distribution width (RBC) [Ratio] 14.0 % Normal 11.6-14.6 [facility] Comment on above: Performed By: #### L 500.4100, L506.1001, L100.0100, L400.0001, M100.2200 ####[facility] [address] [place], [address] Hematocrit (Bld) [Volume fraction] 39.7 % Normal 37-47 [facility] Comment on above: Performed By: #### L 500.4100, L506.1001, L100.0100, L400.0001, M100.2200 ####[facility] [address] [place], [address] Hemoglobin (Bld) [Mass/Vol] 13.0 g/dL Normal 12.0-15.0 [facility] Comment on above: Performed By: #### L 500.4100, L506.1001, L100.0100, L400.0001, M100.2200 ####[facility] [address] [place], [address] IG% 0.100 Normal 0.0-0.9 [facility] Comment on above: Result Comment: IG% - Immature Granulocytes (promyelocytes, myelocytes and metamyelocytes) > 1% indicates that a LEFT SHIFT is Present. Performed By: #### L 500.4100, L506.1001, L100.0100, L400.0001, M100.2200 ####[facility] [address] [place], [address] Lymphocytes/100 WBC (Bld) 29.3 % Normal 19-41 [facility] Comment on above: Performed By: #### L 500.4100, L506.1001, L100.0100, L400.0001, M100.2200 ####[facility] [address] [place], [address] MCH (RBC) [Entitic mass] 29.7 pg Normal 27.0-32.0 [facility] Comment on above: Performed By: #### L 500.4100, L506.1001, L100.0100, L400.0001, M100.2200 ####[facility] [address] [place], [address] MCHC (RBC) [Mass/Vol] 32.7 g/dL Normal 32-36 [facility] Comment on above: Performed By: #### L 500.4100, L506.1001, L100.0100, L400.0001, M100.2200 ####[facility] [address] [place], [address] MCV (RBC) [Entitic vol] 90.8 fL Normal 81-99 [facility] Comment on above: Performed By: #### L 500.4100, L506.1001, L100.0100, L400.0001, M100.2200 ####[facility] [address] [place], [address] Monocytes/100 WBC (Bld) 6.0 % Normal 0-10 [facility] Comment on above: Performed By: #### L 500.4100, L506.1001, L100.0100, L400.0001, M100.2200 ####[facility] [address] [place], [address] Neutrophils/100 WBC (Bld) 61.4 % Normal 47-70 [facility] Comment on above: Performed By: #### L 500.4100, L506.1001, L100.0100, L400.0001, M100.2200 ####[facility] [address] [place], [address] Nucleated RBC (Bld) [#/Vol] 0 10*3/uL Normal 0-5 [facility] Comment on above: Performed By: #### L 500.4100, L506.1001, L100.0100, L400.0001, M100.2200 ####[facility] [address] [place], [address] Platelet mean volume (Bld) [Entitic vol] 11.0 fL Normal 6.2-12.0 [facility] Comment on above: Performed By: #### L 500.4100, L506.1001, L100.0100, L400.0001, M100.2200 ####[facility] [address] [place], [address] Platelets (Bld) [#/Vol] 302 10*3/uL Normal 150-450 [facility] Comment on above: Performed By: #### L 500.4100, L506.1001, L100.0100, L400.0001, M100.2200 ####[facility] [address] [place], [address] RBC (Bld) [#/Vol] 4.37 10*6/uL Normal 4.2-5.4 [facility] Comment on above: Performed By: #### L 500.4100, L506.1001, L100.0100, L400.0001, M100.2200 ####[facility] [address] [place], [address] RDW SD 47.1 fl High 35.1-43.9 [facility] Comment on above: Performed By: #### L 500.4100, L506.1001, L100.0100, L400.0001, M100.2200 ####[facility] [address] [place], [address] WBC (Bld) [#/Vol] 7.2 10*3/uL Normal 4.4-11.0 [facility] Comment on above: Performed By: #### L 500.4100, L506.1001, L100.0100, L400.0001, M100.2200 ####[facility] [address] [place], [address] Calculated very low density lipoprotein (VLDL) cholesterol measurementOrdered By: Clyde Linda on 07-29-2024 Calculated very low density lipoprotein (VLDL) cholesterol measurement 18 mg/dL 5-40 [facility] VLDL Cholesterol 18 mg/dL 5-40 [facility] Eosinophil percentageOrdered By: Clyde Linda on 07-29-2024 Eosinophils/100 WBC (Bld) 2.1 % 0-5 [facility] Epithelial cells.squamous LM Ql (Urine sed)Ordered By: Clyde Linda on 07-29-2024 Epithelial cells.squamous LM.HPF (Urine sed) [#/Area] 5 /[HPF] 5-10 [facility] Erythrocyte distribution wid th (RBC) [Ratio]Ordered By: Clyde Linda on 07-29-2024 Erythrocyte distribution width (RBC) [Entitic vol] 47.1 fL High 35.1-43.9 [facility] Erythrocyte distribution wid th ratioOrdered By: Clyde Linda on 07-29-2024 Erythrocyte distribution width (RBC) [Ratio] 14.0 % 11.6-14.6 [facility] Erythrocyte distribution wid th standard deviationOrdered By: Clyde Linda on 07-29-2024 Erythrocyte distribution width (RBC) [Ratio] 47.1 fl High 35.1-43.9 [facility] Glucose Ql (U)Ordered By: Key Linda on 07-29-2024 Urine Glucose (UA) Normal mg/dl Normal [facility] Hematocrit Auto (Bld) [Volum e fraction]Ordered By: Clyde Linda on 07-29-2024 Hematocrit (Bld) [Volume fraction] 39.7 % 37-47 [facility] Hemoglobin measurementOrdere d By: Clyde Linda on 07-29-2024 Hemoglobin (Bld) [Mass/Vol] 13.0 g/dL 12.0-15.0 [facility] Immature granulocytes/100 WB C Auto (Bld)Ordered By: Clyde Linda on 07-29-2024 Immature granulocytes/100 WBC (Bld) 0.100 % 0.0-0.9 [facility] Comment on above: IG% - Immature Granu locytes (promyelocytes, myelocytes and metamyelocytes) > 1% indicates that a LEFT SHIFT is Present. Ketones Test strip Ql (U)Ord ered By: Clyde Linda on 07-29-2024 Ketones Ql (U) Negative Negative [facility] LDL calc ser/plasOrdered By: Clyde Linda on 07-29-2024 Cholesterol in LDL [Mass/Vol] 87 mg/dL [facility] Comment on above: Gdsloietvz=974-903 m g/dL & Higher Fkdw=745 mg/dL or greater LDL Cholesterol, Calculated 87 mg/dL [facility] Comment on above: Exmtctwqrt=389-304 m g/dL & Higher Fcbf=057 mg/dL or greater Lipid Profileon 07-29-2024 CHOL:HDL 2.79 Normal [facility] Comment on above: Performed By: #### L 500.4100, L506.1001, L100.0100, L400.0001, M100.2200 ####[facility] [address] [place], [address] Cholesterol [Mass/Vol] 164 mg/dL Normal <=200 [facility] Comment on above: Result Comment: Chol esterol level, Desirable <200 mg/dL Borderline high cholesterol 200-239 mg/dL High cholesterol >=240 mg/dL Recommendations of the NCEP Adult Treatment Panel for the following risk-cutoff thresholds for the [place] population. Performed By: #### L 500.4100, L506.1001, L100.0100, L400.0001, M100.2200 ####[facility] [address] [place], [address] Cholesterol in HDL [Mass/Vol] 59 mg/dL Normal [facility] Comment on above: Result Comment: Patricia onal Cholesterol Education Program (NCEP) guidelines: <40 mg/dL: Low HDL-cholesterol (major risk factor for CHD) >= 60 mg/dL: High HDL-cholesterol (negative risk factor for CHD) HDL-cholesterol is affected by a number of factors, e.g. smoking, exercise, hormones, sex and age. Performed By: #### L 500.4100, L506.1001, L100.0100, L400.0001, M100.2200 ####[facility] [address] [place], [address] Cholesterol in LDL [Mass/Vol] 87 mg/dL Normal [facility] Comment on above: Result Comment: Bord nrqyhb=616-312 mg/dL Higher Ytqs=168 mg/dL or greater Performed By: #### L 500.4100, L506.1001, L100.0100, L400.0001, M100.2200 ####[facility] [address] [place], [address] Cholesterol in VLDL [Mass/Vol] 18 mg/dL Normal 5-40 [facility] Comment on above: Performed By: #### L 500.4100, L506.1001, L100.0100, L400.0001, M100.2200 ####[facility] [address] [place], [address] Triglyceride [Mass/Vol] 91 mg/dL Normal [facility] Comment on above: Result Comment: The drugs N-Acetylcysteine and Metamizole may falsely depress this assay. Normal range: <150 mg/dL Borderline High: 150-199 mg/dL High: 200-499 mg/dL Very High: >500 mg/dL Performed By: #### L 500.4100, L506.1001, L100.0100, L400.0001, M100.2200 ####[facility] [address] [place], [address] Lymphocytes Auto (Unsp spec) [#/Vol]Ordered By: Clyde Linda on 07-29-2024 Lymphocytes (Bld) [#/Vol] 2.10 10*3/uL 0.83-4.51 [facility] Lymphocytes/100 WBC Auto (Un sp spec)Ordered By: Clyde Linda on 07-29-2024 Lymphocytes/100 WBC (Bld) 29.3 % 19-41 [facility] MCV (mean corpuscular volume ) determinationOrdered By: Clyde Linda on 07-29-2024 MCV (RBC) [Entitic vol] 90.8 fL 81-99 [facility] Mean corpuscular hemoglobin (MCH) determinationOrdered By: Clyde Linda on 07-29-2024 MCH (RBC) [Entitic mass] 29.7 pg 27.0-32.0 [facility] Mean corpuscular hemoglobin concentration (MCHC) determinationOrdered By: Clyde Linda on 07-29-2024 MCHC (RBC) [Mass/Vol] 32.7 g/dL 32-36 [facility] Mean platelet volume determi nationOrdered By: Clyde Linda on 07-29-2024 Platelet mean volume (Bld) [Entitic vol] 11.0 fL 6.2-12.0 [facility] Microscopic analysis of urin e for red blood cells (RBC)Ordered By: Clyde Linda on 07-29-2024 Microscopic analysis of urine for red blood cells (RBC) 25-50 SEEN /hpf 0-5 [facility] Urine RBC 25-50 SEEN /hpf 0-5 [facility] Monocyte percentageOrdered B y: Clyde Linda on 07-29-2024 Monocytes/100 WBC (Bld) 6.0 % 0-10 [facility] Mucus LM Ql (Urine sed)Order ed By: Clyde Linda on 07-29-2024 Mucus Ql (Urine sed) 0 SEEN /hpf [facility] Neutrophil percentageOrdered By: Clyde Linda on 07-29-2024 Neutrophils/100 WBC (Bld) 61.4 % 47-70 [facility] Nitrite Test strip Ql (U)Ord ered By: Clyde Linda on 07-29-2024 Nitrite Ql (U) Positive High Negative [facility] Nucleated red blood cell per centageOrdered By: Clyde Linda on 07-29-2024 Nucleated RBC/100 WBC (Bld) [Ratio] 0 % 0-5 [facility] Platelet countOrdered By: Key Linda on 07-29-2024 Platelets (Bld) [#/Vol] 302 10*3/uL 150-450 [facility] Protein Test strip Ql (U)Ord ered By: Clyde Linda on 07-29-2024 Protein Ql (U) 30 mg/dl High Negative [facility] RBC Auto (Bld) [#/Vol]Ordere d By: Clyde Linda on 07-29-2024 RBC (Bld) [#/Vol] 4.37 10*6/uL 4.2-5.4 [facility] Screening total cholesterol/ high density lipoprotein (HDL) cholesterol ratioOrdered By: lCyde Linda on 07-29-2024 Cholesterol.total/Choles terol in HDL [Mass ratio] 2.79 {ratio} [facility] Serum or plasma cholesterol in HDL measurement (mass/volume)Ordered By: Clyde Linda on 07-29-2024 Cholesterol in HDL [Mass/Vol] 59 mg/dL >40 [facility] Comment on above: National Cholesterol Education Program (NCEP) guidelines:<40 mg/dL: Low HDL-cholesterol (major risk factor for CHD)>= 60 mg/dL: High HDL-cholesterol (negative risk factor for CHD)HDL-cholesterol is affected by a number of factors, e.g. smoking, exercise, hormones, sex and age. Serum or plasma cholesterol measurement (mass/volume)Ordered By: Clyde Linda on 07-29-2024 Cholesterol [Mass/Vol] 164 mg/dL <201 [facility] Comment on above: Cholesterol level, D esirable <200 mg/dLBorderline high cholesterol 200-239 mg/dLHigh cholesterol >=240 mg/dLRecommendations of the NCEP Adult Treatment Panel for the following risk-cutoff thresholds for the [place] population. Squamous epithelial cells de tection in urine sediment by light microscopyOrdered By: Clyde Linda on 07-29-2024 Epithelial cells.squamous LM Ql (Urine sed) 5-10 SEEN /hpf 5-10 [facility] Triglycerides measurementOrd ered By: Clyde Linda on 07-29-2024 Triglyceride [Mass/Vol] 91 mg/dL <199 [facility] Comment on above: The drugs N-Acetylcy steine and Metamizole may falsely depress this assay. Normal range: <150 mg/dLBorderline High: 150-199 mg/dLHigh: 200-499 mg/dLVery High: >500 mg/dL Urinalysis, Completeon 07-29 BACTERIA 4+ /hpf Normal None Seen [facility] Comment on above: Order Comment: Urine , Random Performed By: #### L 500.4100, L506.1001, L100.0100, L400.0001, M100.2200 ####[facility] [address] [place], [address] EPI,SQUAMOUS 5-10 SEEN Normal 5-10 [facility] Comment on above: Order Comment: Urine , Random Performed By: #### L 500.4100, L506.1001, L100.0100, L400.0001, M100.2200 ####[facility] [address] [place], [address] RBC 25-50 SEEN Normal 0-5 [facility] Comment on above: Order Comment: Urine , Random Performed By: #### L 500.4100, L506.1001, L100.0100, L400.0001, M100.2200 ####[facility] [address] [place], [address] WBC 50-100 SEEN Normal 0-5 [facility] Comment on above: Order Comment: Urine , Random Performed By: #### L 500.4100, L506.1001, L100.0100, L400.0001, M100.2200 ####[facility] [address] [place], [address] Mucus Ql (Urine sed) 0 SEEN Normal [facility] Comment on above: Order Comment: Urine , Random Performed By: #### L 500.4100, L506.1001, L100.0100, L400.0001, M100.2200 ####[facility] [address] [place], [address] Urine blood detectionOrdered By: Clyde Linda on 07-29-2024 Urine Occult Blood 250 /ul High Negative [facility] Urine clarityOrdered By: Anthony Linda on 07-29-2024 Clarity (U) Sl. Cloudy Clear [facility] Urine color determinationOrd ered By: Clyde Linda on 07-29-2024 Color (U) Yellow Yellow [facility] Urine glucose detectionOrder ed By: Clyde Linda on 07-29-2024 Glucose Ql (U) Normal mg/dl Normal [facility] Urine leukocyte esterase det ection by dipstickOrdered By: Clyde Linda on 07-29-2024 Leukocyte esterase Test strip Ql (U) 100 /ul High Negative [facility] Urine pHOrdered By: Clyde godwin on 07-29-2024 pH (U) 5.0 [pH] 5.0 - 8.0 [facility] Urine sediment bacteria coun t by microscopy (number/high power field)Ordered By: Clyde Linda on 07-29-2024 Bacteria LM.HPF (Urine sed) [#/Area] 4 /[HPF] None Seen [facility] Urine specific gravity measu rementOrdered By: Clyde Linda on 07-29-2024 Specific gravity (U) [Rel density] 1.025 1.002-1.030 [facility] Urine urobilinogen measureme ntOrdered By: Clyde Linda on 07-29-2024 Urobilinogen Ql (U) Normal mg/dl Normal [facility] Urobilinogen Ql (U)Ordered B y: Clyde Linda on 07-29-2024 Urine Urobilinogen Normal mg/dl Normal [facility] Vitamin D, 25-hydroxyOrdered By: Clyde Linda on 07-29-2024 Vitamin D 25-Hydroxy 27.7 ng/mL Low 30-100 [facility] Comment on above: Vitamin D StatusDefi ciency: <20 ng/mL (50nmol/L)Insufficiency: 20-30 ng/mL (50-75 nmol/L)Sufficiency: 30-100 ng/mL (75-250 nmol/L)Toxicity: >100 ng/mL (>250 nmol/L) Vitamin D,25 Hydroxyon 07-29 Vitamin D 25-OH 27.7 ng/mL Low 30-100 [facility] Comment on above: Result Comment: Bruna min D Status Deficiency: <20 ng/mL (50nmol/L) Insufficiency: 20-30 ng/mL (50-75 nmol/L) Sufficiency: 30-100 ng/mL (75-250 nmol/L) Toxicity: >100 ng/mL (>250 nmol/L) Performed By: #### L 500.4100, L506.1001, L100.0100, L400.0001, M100.2200 ####[facility] [address] [facility] [place], [address] White blood cell (WBC) count Ordered By: Clyde Linda on 07-29-2024 WBC (Bld) [#/Vol] 7.2 10*3/uL 4.4-11.0 [facility] White blood cell countOrdere d By: Clyde Linda on 07-29-2024 Urine WBC 50-100 SEEN /hpf 0-5 [facility] White blood cell count 50-100 SEEN /hpf 0-5 [facility] Dexa Bone Density Studyon Dexa Bone Density Study [facility] [address] [place] [address] Dexa Bone Density Study MR#: [id number] Acct: [id number] Name: SUELLEN LONG Rep #: [id number] : 1950 F 73 From: Doroteo sousa MD PCP: Dr. 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: [facility] Study: Dexa Bone Density Study Date of Exam: 02/12/24 Exam# [id number] Ordering Dr: Clyde Linda MD -[id number] STUDY: DUAL ENERGY X-RAY ABSORPTIOMETRY / [...] 13:10 EDT Reading Location ID and State: [address] [place] [address] , Service support , CC: Dr. Clyde Linda MD Overhead Foreman: Signed Normal [facility] SCRN MAMM (CAD)W/RAMIREZBlanca MAYFIELDAnju n 02-12-2024 SCRN MAMM (CAD)W/[facility] Imaging Services [address] [place], [place] [address] SCRN MAMM (CAD)W/RAMIREZ CHAPARRO MR#: [id number] Acct: [id number] Name: SUELLEN LONG Rep #: [id number] : 1950 F 73 From: Doroteo sousa MD PCP: Dr. 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: [facility] Study: SCRN MAMM (CAD)W/RAMIREZ BILAT Date of Exam: 01/21 07/13 Exam# [id number] Ordering Dr: Clyde Linda MD -[id number] MAMMOGRAPHY - BILATERAL SCREENING REASON FOR [...] delay biopsy of a clinically suspicious abnormality. [id number] Electronically Signed: Doroteo Diaz MD at 14:20 EDT , CC: Dr. Clyde Linda MD Overhead Foreman: Signed Normal [facility] Absolute lymphocyte countOrd ered By: Clyde Linda on 07-09-2023 Lymphocytes Auto (Unsp spec) [#/Vol] 2.14 10*3/uL 0.83-4.51 [facility] Automated lymphocyte count a s percentage of total leukocytesOrdered By: Clyde Linda on 07-09-2023 Lymphocytes/100 WBC Auto (Unsp spec) 32.9 % 19-41 [facility] Basophil percentageOrdered B y: Clyde Linda on 07-09-2023 Basophils/100 WBC (Bld) 0.9 % 0-1 [facility] Bilirubin [Mass/Vol] 0.80 mg/dL 0.20-1.00 [facility] Comment on above: For patients on eltr ombopag therapy, use of Dimension Murray TBIL is not recommended. Chloride [Moles/Vol] 106 mmol/L 98-107 [facility] Eosinophils/100 WBC (Bld) 1.5 % 0-5 [facility] Glucose [Mass/Vol] 80 mg/dL 74-106 [facility] Hemoglobin (Bld) [Mass/Vol] 13.5 g/dL 12.0-15.0 [facility] Monocytes/100 WBC (Bld) 6.2 % 0-10 [facility] Neutrophils (Bld) [#/Vol] 3.8 10*3/uL 2.0-7.7 [facility] Neutrophils/100 WBC (Bld) 58.3 % 47-70 [facility] Potassium [Moles/Vol] 3.8 mmol/L 3.5-5.1 [facility] Protein [Mass/Vol] 7.7 g/dL 6.4-8.2 [facility] Sodium [Moles/Vol] 140 mmol/L 136-145 [facility] WBC (Bld) [#/Vol] 6.5 10*3/uL 4.4-11.0 [facility] Determination of erythrocyte mean corpuscular volume (MCV)Ordered By: Clyde Linda on 07-09-2023 MCV (RBC) [Entitic vol] 90.3 fL 81-99 [facility] Erythrocyte distribution wid th ratioOrdered By: Clyde Linda on 07-09-2023 Erythrocyte distribution width (RBC) [Ratio] 13.9 % 11.6-14.6 [facility] Erythrocyte distribution wid th standard deviationOrdered By: Clyde Linda on 07-09-2023 Erythrocyte distribution width (RBC) [Entitic vol] 46.3 fL 35.1-43.9 [facility] Hematocrit Auto (Bld) [Volum e fraction]Ordered By: Clyde Linda on 07-09-2023 Hematocrit (Bld) [Volume fraction] 42.1 % 37-47 [facility] Immature granulocytes/100 WB C Auto (Bld)Ordered By: Clyde Linda on 07-09-2023 Immature granulocytes/100 WBC (Bld) 0.200 % 0.0-0.9 [facility] Comment on above: IG% - Immature Granu locytes (promyelocytes, myelocytes and metamyelocytes) > 1% indicates that a LEFT SHIFT is Present. Laboratory - Chemistry and C hemistry - challengeOrdered By: Clyde Linda on 07-09-2023 Albumin/Globulin [Mass ratio] 1.0 {ratio} 0.9-2.4 [facility] ALP [Catalytic activity/Vol] 60 U/L 45-117 [facility] ALT [Catalytic activity/Vol] 22 U/L 13-56 [facility] CO2 [Moles/Vol] 26.0 mmol/L 21.0-32.0 [facility] Globulin (S) [Mass/Vol] 3.9 g/dL 2.2-4.2 [facility] Urea nitrogen/Creatinine [Mass ratio] 21.4 mg/mg 10-20 [facility] Laboratory - Hematology and Cell countsOrdered By: Clyde Linda on 07-09-2023 MCH (RBC) [Entitic mass] 29.0 pg 27.0-32.0 [facility] MCHC (RBC) [Mass/Vol] 32.1 g/dL 32-36 [facility] Nucleated RBC/100 WBC (Bld) [Ratio] 0 % 0-5 [facility] Platelet mean volume (Bld) [Entitic vol] 11.1 fL 6.2-12.0 [facility] Platelets (Bld) [#/Vol] 283 10*3/uL 150-450 [facility] No Panel InformationOrdered By: Clyde Linda on 07-09-2023 Estimated GFR (MDRD) Amer 105 mL/min >60 [facility] Comment on above: GFR Calc Estimated GFR (MDRD) Non-Af Amer 87 mL/min >60 [facility] Comment on above: Non- GFR Calc Vitamin D 25-Hydroxy 34.8 ng/mL [facility] Comment on above: Vitamin D 25(OH) Sta tus Range Deficiency <20 ng/mL (50nmol/L) Insufficiency 20 - 30 ng/mL (50 - 75 nmol/L) Sufficiency 30 - 100 ng/mL (75 - 250 nmol/L) Toxicity >100 ng/mL (>250 nmol/L) RBC Auto (Bld) [#/Vol]Ordere d By: Clyde Linda on 07-09-2023 RBC (Bld) [#/Vol] 4.66 10*6/uL 4.2-5.4 [facility] Serum or plasma calcium ralph urement (mass/volume)Ordered By: Clyde Linda on 07-09-2023 Calcium [Mass/Vol] 9.2 mg/dL 8.5-10.1 [facility] Serum or plasma creatinine m easurement (mass/volume)Ordered By: Clyde Linda on 07-09-2023 Creatinine [Mass/Vol] 0.70 mg/dL 0.55-1.02 [facility] Comment on above: The validity of the calculated GFR & GFRAA in patients over 70 years has not been determined. Clinical correlation is essential. Serum or plasma thyroid stim ulating hormone (TSH) measurement (units/volume)Ordered By: Clyde Linda on 07-09-2023 TSH Qn 0.87 uIU/mL 0.358-3.74 [facility] Serum or plasma urea nitroge n measurement (mass/volume)Ordered By: Clyde Linda on 07-09-2023 Urea nitrogen [Mass/Vol] 15 mg/dL 7-18 [facility] Thin prep Papanicolaou smear with manual screeningOrdered By: Clyde Linda on 07-09-2023 Thin prep Papanicolaou smear with manual screening 3.8 g/dL 3.2-5.0 [facility] Thin prep Papanicolaou smear with manual screening 21 U/L 15-37 [facility] Thin prep Papanicolaou smear with manual screening 8 5-15 [facility] Absolute lymphocyte countOrd ered By: Dr. Linda on 07-03-2022 Lymphocytes Auto (Unsp spec) [#/Vol] 1.82 10*3/uL 0.83-4.51 [facility] Basophil percentageOrdered B y: Dr. Linda on 07-03-2022 Basophils/100 WBC (Bld) 1.0 % 0-1 [facility] Bilirubin [Mass/Vol] 0.50 mg/dL 0.20-1.00 [facility] Comment on above: For patients on eltr ombopag therapy, use of Dimension [place] TBIL is not recommended. Chloride [Moles/Vol] 109 mmol/L 98-107 [facility] Eosinophils/100 WBC (Bld) 1.7 % 0-5 [facility] Glucose [Mass/Vol] 83 mg/dL 74-106 [facility] Neutrophils (Bld) [#/Vol] 3.5 10*3/uL 2.0-7.7 [facility] Neutrophils/100 WBC (Bld) 59.4 % 47-70 [facility] Potassium [Moles/Vol] 4.2 mmol/L 3.5-5.1 [facility] Protein [Mass/Vol] 7.8 g/dL 6.4-8.2 [facility] Sodium [Moles/Vol] 141 mmol/L 136-145 [facility] WBC (Bld) [#/Vol] 5.9 10*3/uL 4.4-11.0 [facility] Blood erythrocytes count (nu mber/volume)Ordered By: Dr. Linda on 07-03-2022 RBC (Bld) [#/Vol] 4.57 10*6/uL 4.2-5.4 [facility] Blood hemoglobin measurement (mass/volume)Ordered By: Dr. Linda on 07-03-2022 Hemoglobin (Bld) [Mass/Vol] 13.0 g/dL 12.0-15.0 [facility] Blood lymphocytes/100 leukoc ytesOrdered By: Dr. Linda on 07-03-2022 Lymphocytes/100 WBC (Bld) 30.8 % 19-41 [facility] Blood monocytes/100 leukocyt esOrdered By: Dr. Linda on 07-03-2022 Monocytes/100 WBC (Bld) 6.9 % 0-10 [facility] Blood platelet mean volumeOr dered By: Dr. Linda on 07-03-2022 Platelet mean volume (Bld) [Entitic vol] 11.0 fL 6.2-12.0 [facility] Determination of erythrocyte mean corpuscular volume (MCV)Ordered By: Dr. Linda on 07-03-2022 MCV (RBC) [Entitic vol] 90.6 fL 81-99 [facility] Hematocrit Auto (Bld) [Volum e fraction]Ordered By: Dr. Linda on 07-03-2022 Hematocrit (Bld) [Volume fraction] 41.4 % 37-47 [facility] Iron measurement (mass/mass) Ordered By: Dr. Linda on 07-03-2022 Iron (Unsp spec) [Mass/Mass] 67 ug/dL 50-170 [facility] Laboratory - Chemistry and C hemistry - challengeOrdered By: Dr. Linda on 07-03-2022 ALP [Catalytic activity/Vol] 72 U/L 45-117 [facility] ALT [Catalytic activity/Vol] 26 U/L 13-56 [facility] CO2 [Moles/Vol] 24.0 mmol/L 21.0-32.0 [facility] Cobalamin (Vitamin B12) [Mass/Vol] 310 pg/mL 211-911 [facility] Globulin (S) [Mass/Vol] 4.0 g/dL 2.2-4.2 [facility] Urea nitrogen/Creatinine [Mass ratio] 39.9 mg/mg 10-20 [facility] Laboratory - Hematology and Cell countsOrdered By: Dr. Linda on 07-03-2022 Erythrocyte distribution width (RBC) [Entitic vol] 49.3 fL 35.1-43.9 [facility] Erythrocyte distribution width (RBC) [Ratio] 14.8 % 11.6-14.6 [facility] Immature granulocytes/100 WBC (Bld) 0.200 % 0.0-0.9 [facility] Comment on above: IG% - Immature Granu locytes (promyelocytes, myelocytes and metamyelocytes) > 1% indicates that a LEFT SHIFT is Present. MCH (RBC) [Entitic mass] 28.4 pg 27.0-32.0 [facility] Nucleated RBC/100 WBC (Bld) [Ratio] 0 % 0-5 [facility] MCHC Auto (RBC) [Mass/Vol]Or dered By: Dr. Linda on 07-03-2022 MCHC (RBC) [Mass/Vol] 31.4 g/dL 32-36 [facility] No Panel InformationOrdered By: Dr. Linda on 07-03-2022 Estimated GFR (MDRD) Amer 110 mL/min >60 [facility] Comment on above: GFR Calc Estimated GFR (MDRD) Non-Af Amer 91 mL/min >60 [facility] Comment on above: Non- GFR Calc Total Iron Binding Capacity 337 ug/dL 250-450 [facility] Vitamin D 25-Hydroxy 30.0 ng/mL [facility] Comment on above: Vitamin D 25(OH) Sta tus Range Deficiency <20 ng/mL (50nmol/L) Insufficiency 20 - 30 ng/mL (50 - 75 nmol/L) Sufficiency 30 - 100 ng/mL (75 - 250 nmol/L) Toxicity >100 ng/mL (>250 nmol/L) Platelets bldOrdered By: Dr. Linda on 07-03-2022 Platelets (Bld) [#/Vol] 341 10*3/uL 150-450 [facility] Serum or plasma albumin ralph urement (mass/volume)Ordered By: Dr. Linda on 07-03-2022 Albumin [Mass/Vol] 3.8 g/dL 3.2-5.0 [facility] Serum or plasma albumin/glob ulin mass ratioOrdered By: Dr. Linda on 07-03-2022 Albumin/Globulin [Mass ratio] 1.0 {ratio} 0.9-2.4 [facility] Serum or plasma calcium ralph urement (mass/volume)Ordered By: Dr. Linda on 07-03-2022 Calcium [Mass/Vol] 8.9 mg/dL 8.5-10.1 [facility] Serum or plasma creatinine m easurement (mass/volume)Ordered By: Dr. Linda on 07-03-2022 Creatinine [Mass/Vol] 0.68 mg/dL 0.55-1.02 [facility] Comment on above: The validity of the calculated GFR & GFRAA in patients over 70 years has not been determined. Clinical correlation is essential. Serum or plasma ferritin maryellen surement (mass/volume)Ordered By: Dr. Linda on 07-03-2022 Ferritin [Mass/Vol] 49 ng/mL 8-252 [facility] Serum or plasma folate measu rement (mass/volume)Ordered By: Dr. Linda on 07-03-2022 Folate [Mass/Vol] 23.60 ng/mL 3.1-55.4 [facility] Serum or plasma urea nitroge n measurement (mass/volume)Ordered By: Dr. Linda on 07-03-2022 Urea nitrogen [Mass/Vol] 27 mg/dL 7-18 [facility] Thin prep Papanicolaou smear with manual screeningOrdered By: Dr. Linda on 07-03-2022 Thin prep Papanicolaou smear with manual screening 20 U/L 15-37 [facility] Thin prep Papanicolaou smear with manual screening 8 5-15 [facility] Basophil percentageon 2021 Bilirubin [Mass/Vol] 0.50 mg/dL 0.20-1.00 [facility] Work Phone: Comment on above: For patients on eltr ombopag therapy, use of Dimension [place] TBIL is not recommended. Chloride [Moles/Vol] 111 mmol/L 98-107 [facility] Work Phone: Glucose [Mass/Vol] 82 mg/dL 74-106 [facility] Work Phone: Potassium [Moles/Vol] 3.8 mmol/L 3.5-5.1 [facility] Work Phone: Protein [Mass/Vol] 7.4 g/dL 6.4-8.2 [facility] Work Phone: Sodium [Moles/Vol] 141 mmol/L 136-145 [facility] Work Phone: Laboratory - Chemistry and C hemistry - challengeon 02-21-2022 ALP [Catalytic activity/Vol] 82 U/L 45-117 [facility] Work Phone: ALT [Catalytic activity/Vol] 20 U/L 13-56 [facility] Work Phone: CO2 [Moles/Vol] 24.0 mmol/L 21.0-32.0 [facility] Work Phone: Globulin (S) [Mass/Vol] 3.8 g/dL 2.2-4.2 [facility] Work Phone: Urea nitrogen/Creatinine [Mass ratio] 25.8 mg/mg 10-20 [facility] Work Phone: No Panel Informationon 02-21 Estimated GFR (MDRD) Amer 122 mL/min >60 [facility] Work Phone: Comment on above: GFR Calc Estimated GFR (MDRD) Non-Af Amer 101 mL/min >60 [facility] Work Phone: Comment on above: Non- GFR Calc Vitamin D 25-Hydroxy 14.6 ng/mL [facility] Work Phone: Comment on above: Vitamin D 25(OH) Sta tus Range Deficiency <20 ng/mL (50nmol/L) Insufficiency 20 - 30 ng/mL (50 - 75 nmol/L) Sufficiency 30 - 100 ng/mL (75 - 250 nmol/L) Toxicity >100 ng/mL (>250 nmol/L) Serum or plasma albumin ralph urement (mass/volume)on 02-21-2022 Albumin [Mass/Vol] 3.6 g/dL 3.2-5.0 [facility] Work Phone: Serum or plasma albumin/glob ulin mass ratioon 02-21-2022 Albumin/Globulin [Mass ratio] 0.9 {ratio} 0.9-2.4 [facility] Work Phone: Serum or plasma calcium ralph urement (mass/volume)on 02-21-2022 Calcium [Mass/Vol] 9.0 mg/dL 8.5-10.1 [facility] Work Phone: Serum or plasma creatinine m easurement (mass/volume)on 02-21-2022 Creatinine [Mass/Vol] 0.62 mg/dL 0.55-1.02 [facility] Work Phone: Comment on above: The validity of the calculated GFR & GFRAA in patients over 70 years has not been determined. Clinical correlation is essential. Serum or plasma urea nitroge n measurement (mass/volume)on 02-21-2022 Urea nitrogen [Mass/Vol] 16 mg/dL 7-18 [facility] Work Phone: Thin prep Papanicolaou smear with manual screeningon 02-21-2022 Thin prep Papanicolaou smear with manual screening 18 U/L 15-37 [facility] Work Phone: Thin prep Papanicolaou smear with manual screening 6 5-15 [facility] Work Phone: Iron measurement (mass/mass) on 12-12-2021 Iron (Unsp spec) [Mass/Mass] 77 ug/dL 50-170 [facility] Work Phone: No Panel Informationon 12-12 Total Iron Binding Capacity 319 ug/dL 250-450 [facility] Work Phone: Serum or plasma ferritin maryellen surement (mass/volume)on 12-12-2021 Ferritin [Mass/Vol] 59 ng/mL 8-252 [facility] Work Phone: Absolute lymphocyte counton 10-09-2021 Lymphocytes Auto (Unsp spec) [#/Vol] 2.07 10*3/uL 0.83-4.51 [facility] Work Phone: Basophil percentageon 2021 Basophils/100 WBC (Bld) 1.0 % 0-1 [facility] Work Phone: Bilirubin [Mass/Vol] 0.20 mg/dL 0.20-1.00 [facility] Work Phone: Comment on above: For patients on eltr ombopag therapy, use of Dimension [place] TBIL is not recommended. Chloride [Moles/Vol] 111 mmol/L 98-107 [facility] Work Phone: Eosinophils/100 WBC (Bld) 2.4 % 0-5 [facility] Work Phone: Glucose [Mass/Vol] 79 mg/dL 74-106 [facility] Work Phone: [phone] Neutrophils (Bld) [#/Vol] 3.1 10*3/uL 2.0-7.7 [facility] Work Phone: [phone] Neutrophils/100 WBC (Bld) 53.0 % 47-70 [facility] Work Phone: [phone] Potassium [Moles/Vol] 3.6 mmol/L 3.5-5.1 [facility] Work Phone: [phone] Protein [Mass/Vol] 7.7 g/dL 6.4-8.2 [facility] Work Phone: [phone] Sodium [Moles/Vol] 143 mmol/L 136-145 [facility] Work Phone: [phone] WBC (Bld) [#/Vol] 5.9 10*3/uL 4.4-11.0 [facility] Work Phone: [phone] Blood erythrocytes count (nu mber/volume)on 10-09-2021 RBC (Bld) [#/Vol] 4.58 10*6/uL 4.2-5.4 [facility] Work Phone: [phone] Blood hemoglobin measurement (mass/volume)on 10-09-2021 Hemoglobin (Bld) [Mass/Vol] 13.4 g/dL 12.0-15.0 [facility] Work Phone: Blood lymphocytes/100 leukoc yteson 10-09-2021 Lymphocytes/100 WBC (Bld) 35.4 % 19-41 [facility] Work Phone: Blood monocytes/100 leukocyt eson 10-09-2021 Monocytes/100 WBC (Bld) 7.9 % 0-10 [facility] Work Phone: Blood platelet mean volumeon 10-09-2021 Platelet mean volume (Bld) [Entitic vol] 11.3 fL 6.2-12.0 [facility] Work Phone: Determination of erythrocyte mean corpuscular volume (MCV)on 10-09-2021 MCV (RBC) [Entitic vol] 90.4 fL 81-99 [facility] Work Phone: Hematocrit Auto (Bld) [Volum e fraction]on 10-09-2021 Hematocrit (Bld) [Volume fraction] 41.4 % 37-47 [facility] Work Phone: Iron measurement (mass/mass) on 10-09-2021 Iron (Unsp spec) [Mass/Mass] 43 ug/dL 50-170 [facility] Work Phone: Laboratory - Chemistry and C hemistry - challengeon 10-09-2021 ALP [Catalytic activity/Vol] 88 U/L 45-117 [facility] Work Phone: ALT [Catalytic activity/Vol] 30 U/L 13-56 [facility] Work Phone: CO2 [Moles/Vol] 25.0 mmol/L 21.0-32.0 [facility] Work Phone: Cobalamin (Vitamin B12) [Mass/Vol] 298 pg/mL 211-911 [facility] Work Phone: Globulin (S) [Mass/Vol] 4.0 g/dL 2.2-4.2 [facility] Work Phone: Urea nitrogen/Creatinine [Mass ratio] 22.8 mg/mg 10-20 [facility] Work Phone: Laboratory - Hematology and Cell countson 10-09-2021 Erythrocyte distribution width (RBC) [Entitic vol] 45.5 fL 35.1-43.9 [facility] Work Phone: Erythrocyte distribution width (RBC) [Ratio] 13.7 % 11.6-14.6 [facility] Work Phone: Immature granulocytes/100 WBC (Bld) 0.300 % 0.0-0.9 [facility] Work Phone: Comment on above: IG% - Immature Granu locytes (promyelocytes, myelocytes and metamyelocytes) > 1% indicates that a LEFT SHIFT is Present. MCH (RBC) [Entitic mass] 29.3 pg 27.0-32.0 [facility] Work Phone: Nucleated RBC/100 WBC (Bld) [Ratio] 0 % 0-5 [facility] Work Phone: MCHC Auto (RBC) [Mass/Vol]on 10-09-2021 MCHC (RBC) [Mass/Vol] 32.4 g/dL 32-36 [facility] Work Phone: No Panel Informationon 10-09 Estimated GFR (MDRD) Amer 106 mL/min >60 [facility] Work Phone: Comment on above: GFR Calc Estimated GFR (MDRD) Non-Af Amer 87 mL/min >60 [facility] Work Phone: Comment on above: Non- GFR Calc Total Iron Binding Capacity 337 ug/dL 250-450 [facility] Work Phone: Platelets bldon 10-09-2021 Platelets (Bld) [#/Vol] 317 10*3/uL 150-450 [facility] Work Phone: Serum or plasma albumin ralph urement (mass/volume)on 10-09-2021 Albumin [Mass/Vol] 3.7 g/dL 3.2-5.0 [facility] Work Phone: Serum or plasma albumin/glob ulin mass ratioon 10-09-2021 Albumin/Globulin [Mass ratio] 0.9 {ratio} 0.9-2.4 [facility] Work Phone: Serum or plasma calcium ralph urement (mass/volume)on 10-09-2021 Calcium [Mass/Vol] 9.3 mg/dL 8.5-10.1 [facility] Work Phone: Serum or plasma creatinine m easurement (mass/volume)on 10-09-2021 Creatinine [Mass/Vol] 0.70 mg/dL 0.55-1.02 [facility] Work Phone: Comment on above: The validity of the calculated GFR & GFRAA in patients over 70 years has not been determined. Clinical correlation is essential. Serum or plasma ferritin maryellen surement (mass/volume)on 10-09-2021 Ferritin [Mass/Vol] 50 ng/mL 8-252 [facility] Work Phone: Serum or plasma folate measu rement (mass/volume)on 10-09-2021 Folate [Mass/Vol] 8.20 ng/mL 3.1-55.4 [facility] Work Phone: Serum or plasma urea nitroge n measurement (mass/volume)on 10-09-2021 Urea nitrogen [Mass/Vol] 16 mg/dL 7-18 [facility] Work Phone: Thin prep Papanicolaou smear with manual screeningon 10-09-2021 Thin prep Papanicolaou smear with manual screening 24 U/L 15-37 [facility] Work Phone: Thin prep Papanicolaou smear with manual screening 7 5-15 [facility] Work Phone: CURon 03-24-2020 CUR . MICRO [...] Locations *1: This test was performed at: [facility], [address] [place] [address], [facility] , [facility] ([place]) Comment on above: Performed By: #### C UR #### [place] [address] .Auto Diffon 03-23-2020 Ammonia (P) [Mass/Vol] 1.00 10 3/mcL Normal 0.15-1.00 [facility] ([place]) Comment on above: Performed By: #### A ROMAINE, GFR, ADIFF, CBC #### [place] [address] #### CMP #### [place] [address] Basophils (Bld) [#/Vol] 0.00 10 3/mcL Normal 0.00-0.19 [facility] ([place]) Comment on above: Performed By: #### A ROMAINE, GFR, ADIFF, CBC #### [place] [address] #### CMP #### [place] [address] Basophils/100 WBC (Bld) 0.1 % Normal 0.0-2.5 [facility] ([place] Comment on above: Performed By: #### A ROMAINE, GFR, ADIFF, CBC #### [place] [address] #### CMP #### [place] [address] Eosinophils (Bld) [#/Vol] 0.00 10 3/mcL Normal 0.00-0.40 [facility] ([place]) Comment on above: Performed By: #### A ROMAINE, GFR, ADIFF, CBC #### [place] [address] #### CMP #### [address] [address] Eosinophils/100 WBC (Bld) 0.0 % Normal 0.0-7.0 [facility] ([place]) Comment on above: Performed By: #### A ROMAINE, GFR, ADIFF, CBC #### [place] [address] #### CMP #### [address] [address] Lymphocytes (Bld) [#/Vol] 0.50 10 3/mcL Low 0.77-3.85 [facility] ([place]) Comment on above: Performed By: #### A ROMAINE, GFR, ADIFF, CBC #### [place] [address] #### CMP #### [address] [address] Lymphocytes/100 WBC (Bld) 2.2 % Low 10.0-50.0 [facility] ([place]) Comment on above: Performed By: #### A ROMAINE, GFR, ADIFF, CBC #### [place] [address] #### CMP #### [address] [address] Monocytes/100 WBC (Bld) 4.5 % Normal 1.7-13.0 [facility] ([place] Comment on above: Performed By: #### A ROMAINE, GFR, ADIFF, CBC #### [place] [address] #### CMP #### [address] [address] Neutrophils/100 WBC (Bld) 93.2 % High 37.0-80.0 [facility] ([place]) Comment on above: Performed By: #### A ROMAINE, GFR, ADIFF, CBC #### [place] [address] #### CMP #### [address] [address] .GFRon 03-23-2020 GFR 50 ml/min/1.73sqm Normal [facility] ([place]) Comment on above: Result Comment: GFR Population [...] #### A ROMAINE, GFR, ADIFF, CBC #### [address] [address] #### CMP #### [address] [address] GFR Non- 41 ml/min/1.73sqm Normal [facility] ([place]) Comment on above: Result Comment: GFR Population [...] #### A ROMAINE, GFR, ADIFF, CBC #### [address] [address] #### CMP #### [place] [address] .NEUABSon 03-23-2020 Neutrophils (Bld) [#/Vol] 20.30 10 3/mcL High 2.85-6.16 [facility] ([place]) Comment on above: Performed By: #### A ROMAINE, GFR, ADIFF, CBC #### [place] [address] #### CMP #### [place] [address] .Urinalysis Microscopic (AO) on 03-23-2020 RBC (U) [#/Vol] 5-10 Abnormal None Seen [facility] ([place] Comment on above: Performed By: #### U AMICAO, UA #### [place] [address] UA Bacteria 2+ /hpf Abnormal [facility] ([place]) Comment on above: Performed By: #### U AMICAO, UA #### [place] [address] UA Squam Epithelial 0-5 Abnormal None Seen [facility] ([place]) Comment on above: Performed By: #### U AMICAO, UA #### [place] [address] UA WBC 15-25 Abnormal None Seen [facility] ([place] Comment on above: Performed By: #### U AMICAO, UA #### [place] [address] CBCon 03-23-2020 Erythrocyte distribution width (RBC) [Ratio] 13.8 % Normal 11.5-14.5 [facility] ([place]) Comment on above: Performed By: #### A ROMAINE, GFR, ADIFF, CBC #### [place] [address] #### CMP #### [place] [address] Hematocrit (Bld) [Volume fraction] 36.0 % Low 37.0-47.0 [facility] ([place]) Comment on above: Performed By: #### A ROMAINE, GFR, ADIFF, CBC #### [address] [address] #### CMP #### [place] [address] Hemoglobin (Bld) [Mass/Vol] 12.2 G/dL Normal 12.0-16.0 [facility] ([place]) Comment on above: Performed By: #### A ROMAINE, GFR, ADIFF, CBC #### [place] [address] #### CMP #### [place] [address] MCH (RBC) [Entitic mass] 30.0 pg Normal 27.0-31.2 [facility] ([place]) Comment on above: Performed By: #### A ROMAINE, GFR, ADIFF, CBC #### [place] [address] #### CMP #### [place] [address] MCHC (RBC) [Mass/Vol] 33.9 G/dL Normal 33.0-37.0 [facility] ([place]) Comment on above: Performed By: #### A ROMAINE, GFR, ADIFF, CBC #### [place] [address] #### CMP #### [place] [address] MCV (RBC) [Entitic vol] 88.6 fL Normal 80.0-94.0 [facility] ([place]) Comment on above: Performed By: #### A ROMAINE, GFR, ADIFF, CBC #### [address] [address] #### CMP #### [place] [address] Platelet mean volume (Bld) [Entitic vol] 8.2 fL Normal 7.4-10.4 [facility] ([place]) Comment on above: Performed By: #### A ROMAINE, GFR, ADIFF, CBC #### [place] [address] #### CMP #### [address] [address] Platelets (Bld) [#/Vol] 225 10 3/mcL Normal 130-400 [facility] ([place]) Comment on above: Performed By: #### A ROMAINE, GFR, ADIFF, CBC #### [place] [address] #### CMP #### [place] [address] RBC (Bld) [#/Vol] 4.06 10 6/mcL Low 4.20-5.40 [facility] ([place]) Comment on above: Performed By: #### A ROMAINE, GFR, ADIFF, CBC #### [place] [address] #### CMP #### [place] [id number] WBC (Bld) [#/Vol] 21.80 10 3/mcL Critically abnormal 4.60-10.80 [facility] ([place]) Comment on above: Performed By: #### A ROMAINE, GFR, ADIFF, CBC #### [place] [address] #### CMP #### [place] [address] CMPon 03-23-2020 Albumin [Mass/Vol] 3.4 G/dL Normal 3.4-4.8 [facility] ([place]) Comment on above: Performed By: #### A ROMAINE, GFR, ADIFF, CBC #### [place] [address] #### CMP #### [place] [address] Albumin/Globulin [Mass ratio] 1.1 {ratio} Normal 1.1-2.5 [facility] ([place]) Comment on above: Performed By: #### A ROMAINE, GFR, ADIFF, CBC #### [place] [address] #### CMP #### [address] [address] ALP [Catalytic activity/Vol] 76 U/L Normal 40-135 [facility] ([place]) Comment on above: Performed By: #### A ROMAINE, GFR, ADIFF, CBC #### [address] [address] #### CMP #### [address] [address] ALT [Catalytic activity/Vol] 25 U/L Normal 14-59 [facility] ([place]) Comment on above: Performed By: #### A ROMAINE, GFR, ADIFF, CBC #### [place] [address] #### CMP #### [address] [address] AST [Catalytic activity/Vol] 15 U/L Normal 10-40 [facility] ([place] Comment on above: Performed By: #### A ROMAINE, GFR, ADIFF, CBC #### [place] [address] #### CMP #### [address] [address] Bili Total 0.7 mg/dL Normal 0.2-1.0 [facility] ([place]) Comment on above: Result Comment: Use of this assay is not recommended for patients undergoing treatment with eltrombopag due to the potential for falsely elevated results. Performed By: #### A ROMAINE, GFR, ADIFF, CBC #### [place] [address] #### CMP #### [address] [address] Calcium [Mass/Vol] 8.6 mg/dL Normal 8.4-10.2 [facility] ([place]) Comment on above: Performed By: #### A ROMAINE, GFR, ADIFF, CBC #### [place] [address] #### CMP #### [address] [address] Chloride [Moles/Vol] 106 mmol/L Normal 98-107 [facility] ([place]) Comment on above: Performed By: #### A ROMAINE, GFR, ADIFF, CBC #### [address] [address] #### CMP #### [address] [address] CO2 [Moles/Vol] 25 mmol/L Normal 23-31 [facility] ([place]) Comment on above: Performed By: #### A ROMAINE, GFR, ADIFF, CBC #### [address] [address] #### CMP #### [address] [address] Creatinine [Mass/Vol] 1.28 mg/dL High 0.55-1.02 [facility] ([place]) Comment on above: Performed By: #### A ROMAINE, GFR, ADIFF, CBC #### [address] [address] #### CMP #### [address] [address] Electrolyte Balance 11.0 mEq/L Normal [facility] ([place]) Comment on above: Performed By: #### A ROMAINE, GFR, ADIFF, CBC #### [address] [address] #### CMP #### [address] [address] Globulin (S) [Mass/Vol] 3.2 G/dL Normal [facility] ([place]) Comment on above: Performed By: #### A ROMAINE, GFR, ADIFF, CBC #### [address] [address] #### CMP #### [address] [address] Glucose [Mass/Vol] 156 mg/dL High 83-110 [facility] ([place]) Comment on above: Performed By: #### A ROMAINE, GFR, ADIFF, CBC #### [address] [address] #### CMP #### [address] [address] Potassium [Moles/Vol] 3.6 mmol/L Normal 3.5-5.1 [facility] ([place]) Comment on above: Performed By: #### A ROMAINE, GFR, ADIFF, CBC #### [address] [address] #### CMP #### [address] [address] Protein [Mass/Vol] 6.6 G/dL Normal 6.4-8.2 [facility] ([place]) Comment on above: Performed By: #### A ROMAINE, GFR, ADIFF, CBC #### [address] [address] #### CMP #### [address] [address] Sodium [Moles/Vol] 142 mmol/L Normal 136-145 [facility] ([place]) Comment on above: Performed By: #### A ROMAINE, GFR, ADIFF, CBC #### [address] [address] #### CMP #### [address] [address] Urea nitrogen [Mass/Vol] 24 mg/dL High 7-18 [facility] ([place]) Comment on above: Performed By: #### A ROMAINE, GFR, ADIFF, CBC #### [address] [address] #### CMP #### [address] [address] Urea nitrogen/Creatinine [Mass ratio] 19 ratio Normal 7-27 [facility] ([place]) Comment on above: Performed By: #### A ROMAINE, GFR, ADIFF, CBC #### [address] [address] #### CMP #### [address] [address] UAon 03-23-2020 Color (U) Yellow Normal [facility] ([place]) Comment on above: Performed By: #### U AMICAO, UA #### [place] [address] [address] Glucose (U) [Mass/Vol] Negative Normal Negative [facility] ([place]) Comment on above: Performed By: #### U AMICAO, UA #### [place] [address] [address] Ketones Ql (U) 15 mg/dL Abnormal Negative [facility] ([place]) Comment on above: Performed By: #### U AMICAO, UA #### [place] [address] [address] UA Appear Slightly Cloudy Abnormal Clear [facility] ([place] Comment on above: Performed By: #### U AMICAO, UA #### [place] [address] [address] UA Blood Moderate Abnormal Negative [facility] ([place]) Comment on above: Performed By: #### U AMICAO, UA #### [place] [address] [address] UA Leuk Est Large Abnormal Negative [facility] ([place]) Comment on above: Performed By: #### U AMICAO, UA #### [place] [address] [address] UA Nitrite Positive Abnormal Negative [facility] ([place] Comment on above: Performed By: #### U AMICAO, UA #### [place] [address] [address] UA pH 7.0 Normal 5.0 - 8.0 [facility] ([place]) Comment on above: Performed By: #### U AMICAO, UA #### [address] [address] UA Protein Negative Normal Negative [facility] ([place]) Comment on above: Performed By: #### U AMICAO, UA #### [place] [address] [address] UA Spec Grav 1.020 Normal 1.015-1.025 [facility] ([place]) Comment on above: Performed By: #### U AMICAO, UA #### [address] [place] [address] [place], [place] [address] UA Specimen Type Void Normal [facility] ([place]) Comment on above: Performed By: #### U AMICAO, UA #### [place] [address] [place], [place] [address] UA Urobilinogen 0.2 E.U./dL Normal 0.2-1.0 [facility] ([place]) Comment on above: Performed By: #### U AMICAO, UA #### [facility] [address] [place], [place] [address] Urobilinogen Qn (U) Negative Normal Negative [facility] ([place]) Comment on above: Performed By: #### U AMICAO, UA #### [facility] [address] [place], [place] [address] Vital Signs Date Time Vital Sign Value Performing Clinician Faci lity 01-28-2025 12:27-0400 Body temperature 98.7 [degF] Dr. Clyde Linda MD Work Phone: [facility] 01-28-2025 12:27-0400 Diastolic blood pressure 78 mm[Hg] Dr. Clyde Linda MD Work Phone: [facility] 01-28-2025 12:27-0400 Heart rate 66 /min Dr. Clyde Linda MD Work Phone: [facility] 01-28-2025 12:27-0400 Respiratory rate 16 /min Dr. Clyde Linda MD Work Phone: [facility] 01-28-2025 12:27-0400 SaO2% (BldA) [Mass fraction] 100 % Dr. Clyde Linda MD Work Phone: [facility] 01-28-2025 12:27-0400 Systolic blood pressure 130 mm[Hg] Dr. Clyde Linda MD Work Phone: [facility] 01-28-2025 08:00-0400 Body height 152.[address] Clyde Linda MD Work Phone: [facility] 01-28-2025 08:00-0400 Body mass index (BMI) [Ratio] 38.3 kg/m2 Dr. Clyde Linda MD Work Phone: [facility] 01-28-2025 08:00-0400 Body weight 89.[address] Clyde Linda MD Work Phone: 0(129)[phone] [place] [address] 01-12-2025 12:02-0400 Body height 152.[address] Clyde Linda MD Work Phone: 1(988)459-040347 [place] [address] 01-12-2025 12:02-0400 Body mass index (BMI) [Ratio] 27.3 kg/m2 Dr. Clyde Linda MD Work Phone: 1(504)602-417032 [address] 01-12-2025 12:02-0400 Body temperature 98.1 [degF] Dr. Clyde Linda MD Work Phone: 2(431)344-886547 [place] [address] 01-12-2025 12:02-0400 Body weight 63.[address] Clyde Linda MD Work Phone: 4(167)626-304232 [address] 01-12-2025 12:02-0400 Diastolic blood pressure 78 mm[Hg] Dr. Clyde Linda MD Work Phone: 0(489)888-996547 [place] [address] 01-12-2025 12:02-0400 Heart rate 62 /min Dr. Clyde Linda MD Work Phone: [facility] 01-12-2025 12:02-0400 Systolic blood pressure 126 mm[Hg] Dr. Clyde Linda MD Work Phone: 3(675)364-909647 [place] [address] 11-26-2024 15:35-0400 Body temperature 97.3 [degF] Dr. Clyde Linda MD Work Phone: 3(074)723-453147 [place] [address] 11-26-2024 15:35-0400 Diastolic blood pressure 76 mm[Hg] Dr. Clyde Linda MD Work Phone: 3(894)063-113047 [place] [address] 11-26-2024 15:35-0400 Heart rate 55 /min Dr. Clyde Linda MD Work Phone: [facility] 11-26-2024 15:35-0400 Respiratory rate 16 /min Dr. Clyde Linda MD Work Phone: 6(053)644-853132 [address] 11-26-2024 15:35-0400 SaO2% (BldA) [Mass fraction] 98 % Dr. Clyde Linda MD Work Phone: 2(382)707-339947 [place] [address] 11-26-2024 15:35-0400 Systolic blood pressure 150 mm[Hg] Dr. Clyde Linda MD Work Phone: 9(197)203-716494 [place] [address] 11-26-2024 11:16-0400 Body height 152.[address] Clyde Linda MD Work Phone: 3(086)819-683494 [place] [address] 11-26-2024 11:16-0400 Body mass index (BMI) [Ratio] 25.8 kg/m2 Dr. Clyde Linda MD Work Phone: 4(765)973-669694 [place] [address] 11-26-2024 11:16-0400 Body weight [address] Clyde Linda MD Work Phone: 1(830)921-078894 [place] [address] 11-20-2024 16:22-0400 Body height 152.[address] Clyde Linda MD Work Phone: 9(072)454-494594 [place] [address] 11-20-2024 16:22-0400 Body mass index (BMI) [Ratio] 27.3 kg/m2 Dr. Clyde Linda MD Work Phone: 6(795)934-198994 [place] [address] 11-20-2024 16:22-0400 Body weight 63.[address] Clyde Linda MD Work Phone: 4(311)038-265794 [place] [address] 11-20-2024 16:22-0400 Diastolic blood pressure 90 mm[Hg] Dr. Clyde Linda MD Work Phone: 0(664)275-146594 [place] [address] 11-20-2024 16:22-0400 Heart rate 62 /min Dr. Clyde Linda MD Work Phone: 8(223)037-611194 [place] [address] 11-20-2024 16:22-0400 Systolic blood pressure 138 mm[Hg] Dr. Clyde Linda MD Work Phone: [facility] Encounters Encounter Date Encounter Type Care Provider Facility Start: 02[facility]11[facility]2025 [facility] Start: 02-02-2025 Encounter for other preprocedural examination Yanira Barahona [facility] Start: 01-28-2025 Non-patient / Non-visit Dr. Thierno Barahona MD [facility] Start: 01-28-2025 End: 01-28-2025 Admission to same day surgery center Dr. Yanira Barahona MD [facility] Start: 01-28-2025 End: 01-28-[address] Clyde Linda MD Work Phone: [facility] Start: 01-21-2025 End: 01-21-[address] Yanira Barahona MD -[facility] Work Phone: Start: 01-21-2025 End: 01-21-[address] Clyde Linda MD Work Phone: -[facility] Start: 01-12-2025 End: 01-12-[address] Clyde Linda MD Work Phone: -[facility] Start: 01-12-2025 End: 01-12-[address] Yanira Barahona MD -[facility] Work Phone: Start: 01-12-2025 End: 01-12-2025 ambulatory Clyde Linda Facility:[facility] Start: 12-03-2024 ambulatory Clyde Linda Facilit y:[facility] Start: 12-03-2024 Non-patient / Non-visit Dr. Thierno Barahona MD -[facility] Start: 11-26-2024 ambulatory Yanira Barahona Facility: [facility] Start: 11-26-2024 Non-patient / Non-visit Dr. Thierno Barahona MD -[facility] Start: 11-26-2024 End: 11-26-2024 Admission to same day surgery center Dr. Yanira Barahona MD [facility] Start: 11-26-2024 End: 11-26-[address] Clyde Linda MD Work Phone: [facility] Start: 11-20-2024 End: 11-20-[address] Yanira Barahona MD -[facility] Work Phone: Start: 11-20-2024 End: 11-20-[address] Clyde Linda MD Work Phone: -[facility] Start: 11-17-2024 End: 11-17-2024 ambulatory Yanira Barahona Facility:[facility] Start: 11-17-2024 End: 11-17-2024 Non-patient / Non-visit Dr. Kyaw Perry MD -[facility] Work Phone: Start: 10-28-2024 End: 10-28-[address] [facility] Start: 10-28-2024 End: 10-28-[address] Clyde Linda MD -[facility] Start: 10-28-2024 End: 10-28-2024 ambulatory Clyde Linda Facility:[facility] Start: 10-20-2024 Non-patient / Non-visit Dr. Thierno Barahona MD -[facility] Work Phone: Start: 09-30-2024 End: 09-30-[address] Clyde Linda MD Work Phone: [facility] Work Phone: Start: 09-30-2024 End: 09-30-[address] Yanira Barahona MD -[facility] [facility] Work Phone[facility] Start: 09-30-2024 End: 09-30-2024 ambulatory Yanira Barahona Facility:[facility] Start: 09-18-2024 End: 09-18-[address] Clyde Linda MD Work Phone: [facility] Work Phone: Start: 09-18-2024 End: 09-18-[address] Yanira Barahona MD -Cat Scan [facility] Work Phone: Start: 09-18-2024 End: 09-18-2024 ambulatory Yanira Barahona Facility:[facility] Start: 09-01-2024 End: 09-01-[address] Clyde Linda MD Work Phone: [facility] Work Phone: Start: 09-01-2024 End: 09-01-[address] Yanira Barahona MD -Ultrasound [facility] Work Phone: Start: 09-01-2024 End: 09-01-2024 ambulatory Yanira Barahona Facility:[facility] Start: 07-29-2024 End: 07-29-[address] Clyde Linda MD Work Phone: [facility] Work Phone: Start: 07-29-2024 End: 07-29-[address] Clyde Linda MD -[facility] Start: 07-29-2024 End: 07-29-2024 ambulatory Clyde Linda Facility:[facility] Start: 02-12-2024 End: 02-12-2024 ambulatory Clyde Linda Facility:[facility] Start: 07-09-2023 End: 07-09-2023 ambulatory [facility] Work Phone: Start: 07-09-2023 End: 07-09-2023 Patient encounter procedure [facility] Start: 02-04-2023 End: 02-04-2023 ambulatory [facility] Work Phone: Start: 02-04-2023 End: 02-04-2023 Patient encounter procedure [facility]-Outpatient Breast Imaging Work Phone: Start: 07-03-2022 End: 07-03-2022 ambulatory [facility] Work Phone: Start: 07-03-2022 End: 07-03-2022 Patient encounter procedure [facility] Start: 02-21-2022 End: 02-21-2022 ambulatory [facility] Work Phone: Start: 02-21-2022 End: 02-21-2022 Patient encounter procedure [facility] Start: 02-01-2022 End: 02-01-2022 ambulatory [facility] Work Phone: Start: 02-01-2022 End: 02-01-2022 Patient encounter procedure [facility]-Outpatient Bone Densitometry Start: 12-12-2021 End: 12-12-2021 ambulatory [facility] Work Phone: Start: 12-12-2021 End: 12-12-2021 Patient encounter procedure [facility] Start: 10-09-2021 End: 10-09-2021 Patient encounter procedure [facility] Procedures Date Procedure Procedure Detail Performing Clinician [...] Activity Detail Author Start: 01-28-2025 Patient discharge [facility] Start: 11-26-2024 Anes lithotrp xtrcor p shock wave w/o water bath ANESTH KIDNEY STONE DESTRUCT [facility] Start: 11-26-2024 Cystoscopy and retro grade pyelography CYSTO/URETERO W/LITHOTRIPSY [facility] Start: 11-26-2024 Patient discharge [facility] Calculus analysis [facility] Measurement of weigh t of calculus [facility] Origin of [facility] Specimen color determination [facility] Payers Date Payer Category Payer Medicaid [id number] 2024 Private Health Insurance [id number] 2024 Self-pay [id number] Medicare [id number] Unknown [id number] Unknown [id number] 2.16.8 40.1.891563.3.579.2.462 Unknown [id number] 2.16.8 40.1.936424.3.579.2.462 Unknown [id number] 2.16.8 40.1.258574.3.579.2.462 Unknown [id number] 2.16.8 40.1.617425.3.579.2.462 Unknown [id number] 2.16.8 40.1.314083.3.579.2.462 Unknown [id number] 2.16.8 40.1.169313.3.579.2.462 Unknown [id number] 2.16.8 40.1.125433.3.579.2.462 Unknown [id number] 2.16.8 40.1.775502.3.579.2.462 Unknown [id number] 2.16.8 40.1.758777.3.579.2.462 Unknown [id number] 2.16.8 40.1.514556.3.579.2.462 Unknown [id number] 2.16.8 40.1.380954.3.579.2.462 Unknown [id number] 2.16.8 40.1.047348.3.579.2.462 Unknown [id number] 2.16.8 40.1.909569.3.579.2.462 Unknown [id number] 2.16.8 40.1.336387.3.579.2.462 Unknown [id number] 2.16.8 40.1.192125.3.579.2.462 Unknown [id number] 2.16.8 40.1.019699.3.579.2.462 Unknown [id number] 2.16.8 40.1.703499.3.579.2.462 Social History Date Type Detail Facility Start: 07-14-2020 End: 07-14-2020 Tobacco smoking status UTIS Unknown if ever smoked [facility] Start: 05-01-2020 None [facility] Start: 05-06-2020 With Family [facility] Start: 07-14-2020 Non-smoker [facility] Start: 1950 Sex Assigned At Female W [facility] Start: 10-01-2023 End: 01-20-2025 Tobacco smoking status UTIS Ex-smoker (finding) [facility] Start: 08-03-2024 Sex Female (finding) [facility] Not [facility] Medical Equipment Procedure Code Equipment Code [...] FDA Start: 01-28-2025 Colonoscopy Ligation clip, metallic [id number] FDA Start: 10-07-2023 Goals Date Patient Goal Desired Activity /State Mental Status Date Assessment Result Facility 01-28-2025 Cognitive function Voice/Name [facility] Work Phone: 11-26-2024 Cognitive function Voice/Name;Touch/Gigi pires [facility] Work Phone: Clinical Notes 09-03-2024 to 01-28-2025 Note Date & Type Note Facility 01-28-2025 Consult note [facility] 01-28-2025 Procedure note [facility] 01-28-2025 Discharge summary [facility] 01-28-2025 Discharge summary Note Date/Time January 28, 2025 11:03am [facility] Medical Records Department [address] [place] [address] Instructions for Home/Discharge Instructions 01/28/25 0843 MR#: [id number] Acct: [id number] Name: SUELLEN LONG Rep #:[id number] : 1950 74 From: Yanira Dominguez PCP: Dr. 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:[facility] Discharge Instructions Diet Discharge Diet: [...] Care Provider: Clyde Linda Instructions Print Language: Finnish Discharge Orders/Prescriptions Prescriptions: New oxycodone-acetaminophen 5-325 mg [...] CC: Dr. Clyde Linda MD ~ Signed [facility] Work Phone: [phone]) 936-673110-09-2025 History and physical note Author Yaniraefrem Barahona [facility] Note Date/Time January 28, 2025 8: [address] [place] [address] System Medical Records Department [address] [place] [address] History & Physical Exam 01/28/25 0833 MR#: [id number] Acct: [id number] Name: SUELLEN LONG Rep #:[id number] : 1950 74 From: Yanira Dominguez PCP: Dr. 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:[facility] Location: [place] [address] History and Physical Date of Admission: 01/28/25 Date of Service: 01/12/25 MR#: [id number] Acct: [id number] Name: SUELLEN LONG ANN Rep #: [id number] : 1950 Provider: Dr. Yanira Barahona MD Age/Sex: 74/F Location: [facility] Status: Signed Intake Vital Signs 11/26/2510:16 01/13/2512:02 Height 5 ft 5 ft Weight: 140 lb BMI 27.3 BP 126/78 H Pulse 62 Temp 98.1 F Intake Visit Reasons: KUB BEFORE APPT. STENT REMOVAL Chief Complaint: possible stent removal Cutter Banana Room Required: No Is patient in pain?: No [...] 5 mg PO QHS 11/12/24 01/12/25 History xornzenp-xmlk-pimz 8 mg-folic 400 1 tab PO DAILY [...] you feel safe at home: Yes HPI [facility] Urology Chief Complaint: possible stent removal [...] healthy appearing, comfortable and no acute distress [facility] Head: normocephalic and atraumatic Ears: hearing [...] Castañeda on 01/12/25 12:16 Off Ur Spec [facility] 1.015 Last Edit by Veronica Castañeda on [...] MD; Dr. Clyde Linda MD ~* Signed [facility] Work Phone: 1(330) 311-477810-09-2025 Consult note Author Naveen jolene [facility] Note Date/Time January 28, 2025 7: 54am [facility] Medical Records Department [address] [place] [address] Pre-Anesthesia Evaluation 01/28/25 0753 MR#: [id number] Acct: [id number] Name: SUELLEN LONG Rep #:[id number] : 1950 74 From: Naveen Abebe MD PCP: Dr. 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:[facility] Y Race: C Location: [place] [address] ASA Classification* ASA Classification ASA Classification: 2 [...] BASKET EXTRACTION Anesthesia History Anesthesia History - occ med physician: Anesthesia History - occ med physician Hx Hospitalization No 01/20/25 11:26 Any Problems [...] take am of surgery PONV PONV - occ med physician: PONV - occ med physician Female Yes 01/20/25 11:26 HX of Motion [...] 01/12/25 12:02 Respiratory Assessment Respiratory Assessment - occ med physician: Respiratory Tract Infection Hx - occ med physician Hx Respiratory Tract Infection No 01/20/25 11:26 STOP Sleep Apnea STOP Sleep Apnea - occ med physician: STOP Sleep Apnea - occ med physician Hx Hypertension Yes: CONTROLLED WITH MED 01/20/25 [...] Tobacco Use History Tobacco Use History - occ med physician: Tobacco Use History - occ med physician Tobacco Use Smoking Status Former smoker 01/20/25 11:26 Hx Tobacco Use No 01/20/25 11:26 Years Smoking Packs Smoked per Day Smoking Cessation Date was No - quit smoking greater 01/20/25 11:26 within the last 15 years than 15 years ago Hx Smoking Cessation Date 09/20/76 01/20/25 11:26 Hx Smoking Cessation No 01/20/25 11:26 Counseling Hematologic Medial History Hematologic Hx - occ med physician: 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 01/28/25 8189 <Electronically signed by Naveen Abebe MD > Date _ Naveen Abebe MD Cosigner Signature: Date CC: ~ Signed [facility] Work Phone: 1(970) 589-399010-09-2025 History and physical note [facility] System Medical Records Department [address] [place] [address] History & Physical Exam 01/28/25 0833 MR#: [id number] Acct: [id number] Name: SUELLEN LONG Rep #:[id number] : 1950 74 From: Yanira Dominguez PCP: Dr. 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:[facility] Location: [place] [address] History and Physical Date of Admission: 01/28/25 Date of Service: 01/12/25 MR#: [id number] Acct: [id number] Name: SUELLEN LONG Rep #: [id number] : 1950 Provider: Dr. Yanira Barahona MD Age/Sex: 74/F Location: [facility] Status: Signed Intake Vital Signs 11/26/2510:16 01/13/2512:02 Height 5 ft 5 ft Weight: 140 lb BMI 27.3 BP 126/78 H Pulse 62 Temp 98.1 F Intake Visit Reasons: KUB BEFORE APPT. STENT REMOVAL Chief Complaint: possible stent removal Cutter Banana Room Required: No Is patient in pain?: No [...] 5 mg PO QHS 11/12/24 01/12/25 History ceqkiafv-uenf-kjut 8 mg-folic 400 1 tab PO DAILY [...] healthy appearing, comfortable and no acute distress [facility] Head: normocephalic and atraumatic Ears: hearing [...] Castañeda on 01/12/25 12:16 Off Ur Spec [facility] 1.015 Last Edit by Veronica Castañeda on [...] MD; Dr. Clyde Linda MD ~* Signed [facility]10-09-2025 [facility] Medical Records Department [address] [place] [address] History Physical Exam 01/28/25832 MR#: [id number] Acct: [id number] Name: SUELLEN LONG Rep #: [id number] : 1950 74 From: Yanira Barahona MD PCP: Dr. 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:[facility] Location: [place] [address] History and Physical Date of Admission: 01/28/25 Date of Service: 01/12/25 MR#: [id number] Acct: [id number] Name: ETHANSUELLENSLOAN Rep #: [id number] : 1950 Provider: Dr. Yanira Barahona MD Age/Sex: 74/F Location: [facility] Status: Signed Intake Vital Signs 11/26/2510:16 01/13/2512:02 Height 5 ft 5 ft Weight: 140 lb BMI 27.3 BP 126/78 H Pulse 62 Temp 98.1 F Intake Visit Reasons: KUB BEFORE APPT. STENT REMOVAL Chief Complaint: possible stent removal Cutter Banana Room Required: No Is patient in pain?: No [...] 5 mg PO QHS 11/12/24 01/12/25 History bkhnaxro-cxsx-leoz 8 mg-folic 400 1 tab PO DAILY [...] shortness of breath, irregular (more content not included)...[facility]10-09-2025 Consult note [facility] Medical Records Department [address] [place] [address] Pre-Anesthesia Evaluation 01/28/25 0753 MR#: [id number] Acct: [id number] Name: SUELLEN LONG Rep #:[id number] : 1950 74 From: Naveen Abebe MD PCP: Dr. 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:RE G SDC Y Race: C Location: [place] [address] ASA Classification* ASA Classification ASA Classification: 2 [...] BASKET EXTRACTION Anesthesia History Anesthesia History - occ med physician: Anesthesia History - occ med physician Hx Hospitalization No 01/20/25 11:26 Any Problems [...] take am of surgery PONV PONV - occ med physician: PONV - occ med physician Female Yes 01/20/25 11:26 HX of Motion [...] 01/12/25 12:02 Respiratory Assessment Respiratory Assessment - occ med physician: Respiratory Tract Infection Hx - occ med physician Hx Respiratory Tract Infection No 01/20/25 11:26 STOP Sleep Apnea STOP Sleep Apnea - occ med physician: STOP Sleep Apnea - occ med physician Hx Hypertension Yes: CONTROLLED WITH MED 01/20/25 [...] Tobacco Use History Tobacco Use History - occ med physician: Tobacco Use History - occ med physician Tobacco Use Smoking Status Former smoker 01/20/25 11:26 Hx Tobacco Use No 01/20/25 11:26 Years Smoking Packs Smoked per Day Smoking Cessation Date was No - quit smoking greater 01/20/25 11:26 within the last 15 years than 15 years ago Hx Smoking Cessation Date 09/20/76 01/20/25 11:26 Hx Smoking Cessation No 01/20/25 11:26 Counseling Hematologic Medial History Hematologic Hx - occ med physician: 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 Hx of Blood Transfusion Yes 01/20/25 11:26 [...] confused, unrespo /Reproduction History /Reproductive History - occ med physician: /Reproductive Hx- occ med physician Hx Now No 01/20/25 11:26 Gestational Age [...] 5 mg PO QHS 11/12/24 Unknown History asbevmtm-apxd-kfkr 8 mg-folic 400 1 tab PO DAILY [...] MD Cosigner Signature: Date CC: ~ Signed [facility]09-24-2025 Radiology Diagnostic study note [facility] Imaging Services [address] [place] [address] Abdomen Single View MR#: [id number] Acct: [id number] Name: SUELLEN LONG Rep #: [id number] : 1950 F 74 From: Michael Huffman MD PCP: Dr. 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: RE G CLI Study:Abdomen Single View Date of Exam: 01/12/25 Exam# [id number] Ordering Dr: Yanira Barahona MD PROCEDURE: ABDOMEN [...] 3. Other findings as noted. Reading Location: [facility] CC: Dr. Yanira Barahona MD; Dr. Clyde Linda MD ~ Overhead Foreman: Signed [facility] Work Phone: 1(558) 855-764909-23-2025 [facility] [address], [address] [place] [id number] OFFICE VISIT Date of Service: 01/12/25 MR#: [id number] Acct: [id number] Name: SUELLEN LONG Rep #: [id number] : 1950 Provider: Dr. Tr Barahona MD Age/Sex: 74/F Location: [facility] Status: Signed Intake Vital Signs 11/26/24 11:16 01/12/25 12:02 Height 5 ft 5 ft Weight: 140 lb BMI 27.3 BP 126/78 H Pulse 62 Temp 98.1 F Intake Visit Reasons: KUB BEFORE APPT. STENT REMOVAL Chief Complaint: possible stent removal Cutter Banana Room Required: No Is patient in pain?: No [...] 5 mg PO QHS 11/12/24 5 History spszktpa-mgkp-nifq 8 mg-folic 400 1 tab PO DAILY [...] you feel safe at home: Yes HPI [facility] Urology Chief Complaint: possible stent removal [...] healthy appearing, comfortable and no acute distress [facility] Head: normocephalic and atraumatic Ears: hearing [...] Castañeda on 01/12/25 12:16 Off Ur Spec [facility] 1.015 Last Edit by Veronica Castañeda on [...] [birth year] > Date _ Yanira Barahona MD [facility] Signature: Date (if applicable) CC: ~ [facility]08-14-2025 [facility] Medical Records Department [address] [place] [address] History Physical Exam 12/03/2406 MR#: [id number] Acct: [id number] Name: SUELLEN LONG Rep #: [id number] : 1950 74 From: Yanira Barahona MD PCP: Dr. 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:[facility] Location: [facility] History and Physical Date of Admission: 11/26/24 Intake Vital Signs 10/07/2407:00 11/21/2515:22 Height 5 ft 5 ft Weight: 140 lb BMI 27.3 BP 138/90 H Pulse 62 Intake Visit Reasons: PRE OP URINE/SIGNED CONSENT Chief Complaint: preoperative visit with urine and consent Cutter Banana Room Required: No Accompanied by: Self Is patient [...] 5 mg PO QHS 11/12/24 11/20/24 History azaprcgx-aysl-vrjc 8 mg-folic 400 1 tab PO DAILY [...] or weight del real (more content not included)...[facility]08-07-2025 Consult note [facility] Medical Records Department [address] [place] [address] Anesthesia Postop Eval II 11/26/24 1512 MR#: [id number] Acct: [id number] Name: SUELLEN LONG Rep #:[id number] : 1950 74 From: Pankaj James MD PCP: Dr. 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:RE G SDC Y Race: C Location: [place] [address] Anesthesia Postop Eval I Sum Postop Eval Completion status Anesthesia document: Postop Eval 1 completed: Yes Anesthesia Postop Eval I Summary Anesthesia Postop Eval I Summary: Anesthesia Postop Eval I: Assessment Summary Airway patent Yes 11/26/24 14:20 PLATE FILLER.MDOT Spontaneous unlabored Yes 11/26/24 14:20 PLATE FILLER.MDOT respirations Mental status Awake,Calm 11/26/24 14:20 PLATE FILLER.MDOT nausea No 11/26/24 14:20 PLATE FILLER.MDOT Vomiting No 11/26/24 14:20 PLATE FILLER.MDOT Anesthesia Postop Eval I: Fluid Summary Crystalloid volume administer 800 11/26/24 14:20 PLATE FILLER.MDOT (ml) Colloids volume administered ( ml) Blood Product volume administered (ml) Total IV fluid infused 800 11/26/24 14:20 PLATE FILLER.MDOT Anesthesia Postop Eval I: Summary Notes Anesthesia Complication No 11/26/24 14:20 PLATE FILLER.MDOT Anesthesia Complication Comment: Post-operative progress note Anesthesia: Postop Eval II Evaluation Mental status: Awake Pain Level: 0 nausea: No Vomiting: No 11/26/24 1512 MD> Date _ Pankaj James MD Cosigner Signature: Date CC: ~ Signed [facility]08-07-2025 Discharge summary Author Yanira Barahona [facility] Note Date/Time November 26, 2024 12: 51pm [facility] Medical Records Department [address] [place] [address] Instructions for Home/Discharge Instructions 11/26/24 1249 MR#: [id number] Acct: [id number] Name: SUELLEN LONG Rep #:[id number] : 1950 74 From: Yanira Dominguez PCP: Dr. 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:RE G [facility] Discharge Instructions Diet Discharge Diet: No restrictions [...] Care Provider: Clyde Linda Instructions Print Language: Finnish Discharge Orders/Prescriptions Prescriptions: New phenazopyridine 200 mg [...] CC: Dr. Clyde Linda MD ~ Signed [facility] Work Phone: 1(811) 306-517708-07-2025 Consult note [facility] Medical Records Department [address] [place] [address] Anesthesia Postop Eval I 11/26/24 1419 MR#: [id number] Acct: [id number] Name: SUELLEN LONG Rep #:[id number] : 1950 74 From: Indra CHRISTIANSON PCP: Dr. 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:[facility] Y Race: C Location: [place] [address] Anesthesia: Postop Eval I Current Vital Signs [...] Postop Eval 1 completed: Yes 11/26/24 1420 PLATE FILLER> Date _ Indra Karinalindsay PLATE FILLER Cosigner Signature: Date CC: ~ Signed [facility]08-07-2025 Procedure note [facility] Medical Records Department [address] [place] [address] Operative Report 11/26/24 1251 MR#: [id number] Acct: [id number] Name: SUELLEN LONG Rep #:[id number] : 1950 74 From: Yanira Dominguez PCP: Dr. 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:AL Duran [facility] Location: [address] Operative Report (Standard) Operative Information Date of Procedure: 08/07/25 Pre-Operative Diagnosis: Left renal and ureteropelvic junction stones and hydronephrosis Post-Operative Diagnosis: Same Surgery/Procedure Performed: Cystoscopy with left ureteral stent insertion, leftrenal extracorporalshockwave lithotripsy project development director: No Type of Anesthesia: General RN Documented Start/Stop Times: Operation Date: 11/26/24 12:05 Case Time Into Pre-Op 11/26/24 10:40 Out of Pre-Op 11/26/24 12:45 Anesthesia Start 11/26/24 12:55 Into Room 11/26/24 12:55 Procedure Start 11/26/24 13:07 Procedure End 11/26/24 14:11 Procedure Start Time: 13:07 Procedure Stop Time: 14:11 Select all DRAINS/GRAFTS/IMPLANTS that apply: Drains Drain details: 6 Wallisian by 22 cm JJ stent Estimated Blood [...] pelvis as seen on fluoroscopy. A 6 Wallisian 22 cm JJ stent was placed over [...] Barahona MD; Dr. Clyde Linda MD~ Signed [facility]08-07-2025 Consult note Author Pankaj James [facility] Note Date/Time November 26, 2024 11: 18am [facility] Medical Records Department [address] [place] [address] Pre-Anesthesia Evaluation 11/26/24 1116 MR#: [id number] Acct: [id number] Name: SUELLEN LONG Rep #:[id number] : 1950 74 From: Pankaj James MD PCP: Dr. 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:RE G [facility] Y Race: C Location: [place] [address] ASA Classification* ASA Classification ASA Classification: 3 [...] STENT INSERTION Anesthesia History Anesthesia History - occ med physician: Anesthesia History - occ med physician Hx Hospitalization No 11/12/24 10:47 Any Problems [...] take am of surgery PONV PONV - occ med physician: PONV - occ med physician Female Yes 11/12/24 10:47 HX of Motion [...] 11/20/24 16:22 Respiratory Assessment Respiratory Assessment - occ med physician: Respiratory Tract Infection Hx - occ med physician Hx Respiratory Tract Infection No 11/12/24 10:47 STOP Sleep Apnea STOP Sleep Apnea - occ med physician: STOP Sleep Apnea - occ med physician Hx Hypertension Yes: CONTROLLED WITH MED 11/12/24 [...] Tobacco Use History Tobacco Use History - occ med physician: Tobacco Use History - occ med physician Tobacco Use Smoking Status Former smoker 11/16/24 16:18 Hx Tobacco Use No 11/12/24 10:47 Years Smoking Packs Smoked per Day Smoking Cessation Date was No - quit smoking greater 11/12/24 10:47 within the last 15 years than 15 years ago Hx Smoking Cessation Date 09/20/76 11/12/24 10:47 Hx Smoking Cessation No 11/12/24 10:47 Counseling Hematologic Medial History Hematologic Hx - occ med physician: 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 Hx of Blood Transfusion Yes 11/12/24 10:47 [...] confused, unrespo /Reproduction History /Reproductive History - occ med physician: /Reproductive Hx- occ med physician Hx Now No 11/12/24 10:47 Gestational Age [...] 5 mg PO QHS 11/12/24 Unknown History sbhrqfup-rpik-nnij 8 mg-folic 400 1 tab PO DAILY [...] MD Cosigner Signature: Date CC: ~ Signed [facility] Work Phone: 1(850) 920-611408-07-2025 Discharge summary [facility] Medical Records Department [address] [place] [address] Instructions for Home/Discharge Instructions 11/26/24 1249 MR#: [id number] Acct: [id number] Name: SUELLEN LONG Rep #:[id number] : 1950 74 From: Yanira Dominguez PCP: Dr. 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:RE G [facility] Discharge Instructions Diet Discharge Diet: No restrictions [...] Care Provider: Clyde Linda Instructions Print Language: Finnish Discharge Orders/Prescriptions Prescriptions: New phenazopyridine 200 mg [...] CC: Dr. Clyde Linda MD ~ Signed [facility]08-07-2025 Consult note [facility] Medical Records Department [address] [place] [address] Pre-Anesthesia Evaluation 11/26/24 1116 MR#: [id number] Acct: [id number] Name: SUELLEN LONG Rep #:[id number] : 1950 74 From: Pankaj James MD PCP: Dr. 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:RE G SDC Y Race: C Location: [facility] ASA Classification* ASA Classification ASA Classification: 3 [...] STENT INSERTION Anesthesia History Anesthesia History - occ med physician: Anesthesia History - occ med physician Hx Hospitalization No 11/12/24 10:47 Any Problems [...] take am of surgery PONV PONV - occ med physician: PONV - occ med physician Female Yes 11/12/24 10:47 HX of Motion [...] 11/20/24 16:22 Respiratory Assessment Respiratory Assessment - occ med physician: Respiratory Tract Infection Hx - occ med physician Hx Respiratory Tract Infection No 11/12/24 10:47 STOP Sleep Apnea STOP Sleep Apnea - occ med physician: STOP Sleep Apnea - occ med physician Hx Hypertension Yes: CONTROLLED WITH MED 11/12/24 [...] Tobacco Use History Tobacco Use History - occ med physician: Tobacco Use History - occ med physician Tobacco Use Smoking Status Former smoker 11/16/24 16:18 Hx Tobacco Use No 11/12/24 10:47 Years Smoking Packs Smoked per Day Smoking Cessation Date was No - quit smoking greater 11/12/24 10:47 within the last 15 years than 15 years ago Hx Smoking Cessation Date 09/20/76 11/12/24 10:47 Hx Smoking Cessation No 11/12/24 10:47 Counseling Hematologic Medial History Hematologic Hx - occ med physician: 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 Hx of Blood Transfusion Yes 11/12/24 10:47 [...] confused, unrespo /Reproduction History /Reproductive History - occ med physician: /Reproductive Hx- occ med physician Hx Now No 11/12/24 10:47 Gestational Age [...] 5 mg PO QHS 11/12/24 Unknown History dxcfwrvk-qwyt-utir 8 mg-folic 400 1 tab PO DAILY [...] MD Cosigner Signature: Date CC: ~ Signed [facility]08-01-2025 Evaluation note* Diagnosis Onset Date Resolution Status Admit Date Cystocele, midline acute November 20, 2024 3:39pm Kidney stones acute November 20, 2024 3:39pm Urinary frequency acute November 20, 2024 3:39pm Urinary tract infection acute A ugust 2024 3:39pm Vaginal atrophy acute November 3:39pm [facility] Work Phone: [phone]) 412-572408-01-2025 Evaluation note* Diagnosis Onset Date Resolution Status [...] Vaginal atrophy acute January 12, 2025 11:36am [facility] Work Phone: 1(497) 221-995506-12-2025 Radiology Diagnostic study note [facility] Imaging Services [address] [place], [place] [address] [address] Abdomen Single View MR#: [id number] Acct: [id number] Name: SUELLEN LONG Rep #: [id number] : 1950 F 73 From: An Jennings MD PCP: Dr. 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: [facility] CLI Study:Abdomen Single View Date of Exam: 09/30/24 Exam# [id number] Ordering Dr: Yanira Barahona MD PROCEDURE: ABDOMEN SINGLE VIEW 09/30/2024 REASON FOR EXAM: KUB- KIDNEY STONES TECHNIQUE: Single view abdomen. COMPARISON: 09/18/2024. FINDINGS: Left renal/proximal ureteral stones are again noted with the largest measuring 1.6 cm. 8 mm calcification/stone is noted at the topography of the left sacral ala at C6oxeyt. Moderate amount of fecal residue in the [...] topography of the left sacral ala at L2akvhc. Moderate amount of fecal residue in the large bowels. Reading Location: [place] [address] CC: Dr. Yanira Barahona MD; Dr. Clyde Linda MD ~ Overhead Foreman: Signed [facility]05-31-2025 Radiology Diagnostic study note [facility] Imaging Services [address] [place] [address] Abdomen/Pelvis without Cont MR#: [id number] Acct: [id number] Name: SUELLEN LONG Rep #: [id number] : 1950 F 73 From: Bailey Cedillo MD PCP: Dr. 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: RE G CLI Study:Abdomen/Pelvis without Cont Date of Exa m: 09/18/24 Exam# [id number] Ordering Dr: Yanira Barahona MD PROCEDURE: ABDOMEN/PELVIS [...] lymph nodes may reflect panniculitis. Reading Location: [id number] CC: Dr. Yanira Barahona MD; Dr. Clyde Linad MD ~ Overhead Foreman: Signed [facility]05-15-2025 Radiology Diagnostic study note [facility] Imaging Services [address] [place] [address] Kidney and Bladder MR#: [id number] Acct: [id number] Name: SUELLEN LONG Rep #: [id number] : 1950 F 73 From: Francesco Diaz MD PCP: Dr. 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: RE G CLI Study:Kidney and Bladder Date of Exam: 0 09/01/24 Exam# [id number] Ordering Dr: Yanira Barahona MD PROCEDURE: KIDNEY [...] mm nonobstructive left intrarenal calculus. Reading Location: [facility] CC: Dr. Yanira Barahona MD; Dr. Clyde Linda MD ~ Overhead Foreman: Signed [facility] Author Indra Garcia [facility] Note Date/Time November 26, 2024 2:2 0pm [facility] Medical Records Department [address] [place] [address] Anesthesia Postop Eval I 11/26/24 1419 MR#: [id number] Acct: [id number] Name: SUELLEN LONG Rep #:[id number] : 1950 74 From: Indra CHRISTIANSON PCP: Dr. 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:AL HOLDER Y Race: C Location: [place] [address] Anesthesia: Postop Eval I Current Vital Signs [...] CRNA Cosigner Signature: Date CC: ~ Signed [facility] Work Phone: Consult note Author Pankaj CardozoZuni Comprehensive Health Centerlukasz [facility] Note Date/Time November 26, 2024 3:5 4pm [facility] Medical Records Department [address] [place] [address] Anesthesia Postop Eval II 11/26/24 1512 MR#: [id number] Acct: [id number] Name: SUELLEN LONG Rep #:[id number] : 1950 74 From: Pankaj James MD PCP: Dr. 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:AL HOLDER Y Race: C Location: [place] [address] Anesthesia Postop Eval I Sum Postop Eval Completion status Anesthesia document: Postop Eval 1 completed: Yes Anesthesia Postop Eval I Summary Anesthesia Postop Eval I Summary: Anesthesia Postop Eval I: Assessment Summary Airway patent Yes 11/26/24 14:20 PLATE FILLER.MDOT Spontaneous unlabored Yes 11/26/24 14:20 PLATE FILLER.MDOT respirations Mental status Awake,Calm 11/26/24 14:20 PLATE FILLER.MDOT nausea No 11/26/24 14:20 PLATE FILLER.MDOT Vomiting No 11/26/24 14:20 PLATE FILLER.MDOT Anesthesia Postop Eval I: Fluid Summary Crystalloid volume administer 800 11/26/24 14:20 PLATE FILLER.MDOT (ml) Colloids volume administered ( ml) Blood Product volume administered (ml) Total IV fluid infused 800 11/26/24 14:20 PLATE FILLER.MDOT Anesthesia Postop Eval I: Summary Notes Anesthesia Complication No 11/26/24 14:20 PLATE FILLER.MDOT Anesthesia Complication Comment: Post-operative progress note Anesthesia: Postop Eval II Evaluation Mental status: Awake Pain Level: 0 nausea: No Vomiting: No 11/26/24 1512 <Electronically signed by Pankaj James MD> Date _ Pankaj James MD Cosigner Signature: Date CC: ~ Signed [facility] Work Phone: Consult note [facility] Medical Records Department [address] [place] [address] Anesthesia Postop Eval II 01/28/25 1232 MR#: [id number] Acct: [id number] Name: SUELLEN LONG Rep #:[id number] : 1950 74 From: Naveen Abebe MD PCP: Dr. 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:DE P [facility] Y Race: C Location: [facility] Anesthesia Postop Eval I Sum Postop Eval Completion status Anesthesia document: Postop Eval 1 completed: Yes Anesthesia Postop Eval I Summary Anesthesia Postop Eval I Summary: Anesthesia Postop Eval I: Assessment Summary Airway patent Yes 01/28/25 11:02 PLATE FILLER.MAURAU Spontaneous unlabored Yes 01/28/25 11:02 PLATE FILLER.YUMIKO respirations Mental status Awake,Calm 01/28/25 11:02 PLATE FILLER.JBLOU nausea No 01/28/25 11:02 PLATE FILLER.JBLOU Vomiting No 01/28/25 11:02 PLATE FILLER.JBLOU Anesthesia Postop Eval I: Fluid Summary Crystalloid volume administer 800 01/28/25 11:02 PLATE FILLER.JBLOU (ml) Colloids volume administered ( ml) Blood Product volume administered (ml) Total IV fluid infused 800 01/28/25 11:02 PLATE FILLER.JBLOU Anesthesia Postop Eval I: Summary Notes Anesthesia Complication No 01/28/25 11:02 PLATE FILLER.JBLOU Anesthesia Complication Comment: Post-operative progress note Anesthesia: Postop Eval II Evaluation Mental status: Awake Pain Level: 0 nausea: No Vomiting: No 01/28/25 1232 > Date _ Naveen Raya Signature: Date CC: ~ Signed [facility] Author Nitin Flores [facility] Note Date/Time January 28, 2025 12 :13pm [facility] Medical Records Department [address] [place] [address] Anesthesia Postop Eval I 01/28/25 1057 MR#: [id number] Acct: [id number] Name: SUELLEN LONG Rep #:[id number] : 1950 74 From: Nitin PALACIOS PCP: Dr. 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:RE G [facility] Y Race: C Location: [place] [address] Anesthesia: Postop Eval I Current Vital Signs [...] CRNA Cosigner Signature: Date CC: ~ Signed [facility] Work Phone: Consult note Author Naveen Abebe [facility] Note Date/Time January 28, 2025 12 :32pm [facility] Medical Records Department [address] [place] [address] Anesthesia Postop Eval II 01/28/25 1232 MR#: [id number] Acct: [id number] Name: SUELLEN LONG Rep #:[id number] : 1950 74 From: Naveen Abebe MD PCP: Dr. 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:DE P [facility] Y Race: C Location: [facility] Anesthesia Postop Eval I Sum Postop Eval Completion status Anesthesia document: Postop Eval 1 completed: Yes Anesthesia Postop Eval I Summary Anesthesia Postop Eval I Summary: Anesthesia Postop Eval I: Assessment Summary Airway patent Yes 01/28/25 11:02 PLATE FILLER.JBLOU Spontaneous unlabored Yes 01/28/25 11:02 PLATE FILLER.JBLOU respirations Mental status Awake,Calm 01/28/25 11:02 PLATE FILLER.JBLOU nausea No 01/28/25 11:02 PLATE FILLER.JBLOU Vomiting No 01/28/25 11:02 PLATE FILLER.JBLOU Anesthesia Postop Eval I: Fluid Summary Crystalloid volume administer 800 01/28/25 11:02 PLATE FILLER.JBLOU (ml) Colloids volume administered ( ml) Blood Product volume administered (ml) Total IV fluid infused 800 01/28/25 11:02 PLATE FILLER.JBLOU Anesthesia Postop Eval I: Summary Notes Anesthesia Complication No 01/28/25 11:02 PLATE FILLER.JBLOU Anesthesia Complication Comment: Post-operative progress note Anesthesia: Postop Eval II Evaluation Mental status: Awake Pain Level: 0 nausea: No Vomiting: No 01/28/25 1232 <Electronically signed by Naveen Abebe MD > Date _ Naveen Abebe MD Cosigner Signature: Date CC: ~ Signed [facility] Work Phone: Evaluation noteNo assessment information available [facility] Work Phone: Progress note Author Yanira Barahona [facility] Note Date/Time January 12, 2025 12:16pm [facility] [address] [place] [address], [address] [place] [address] OFFICE VISIT Date of Service: 01/12/25 MR#: [id number] Acct: [id number] Name: SUELLEN LONG Rep #: [id number] : 1950 Provider: Dr. Tr Barahona MD Age/Sex: 74/F Location: [facility] Status: Signed Intake Vital Signs 11/26/24 11:16 01/12/25 12:02 Height 5 ft 5 ft Weight: 140 lb BMI 27.3 BP 126/78 H Pulse 62 Temp 98.1 F Intake Visit Reasons: KUB BEFORE APPT. STENT REMOVAL Chief Complaint: possible stent removal Cutter Banana Room Required: No Is patient in pain?: No [...] 5 mg PO QHS 11/12/24 5 History vgocudop-jrqm-qgdj 8 mg-folic 400 1 tab PO DAILY [...] Castañeda on 01/12/25 12:16 Off Ur Spec [facility] 1.015 Last Edit by Veronica Castañeda on [...] Cosigner Signature: Date (if applicable) CC: ~ [facility] Work Phone: Reason for referral (narrative)No reason for referral information availableWKettering [facility] Work Phone: Summary Purpose Family History No [...] No July 14, 2020 10:39am Power of Manager Financial No July 14 10:39am Advance Directive Response Recorded Date/ Time Living Will No July 14, 2020 9:39am Power of Manager Financial No July 14 9:39am Advance Directive Response Recorded Date/ Time Do you have a Healthcare Power of Manager Financial? No November 12, 2024 10:47am Advance Directive Response Recorded Date/ Time Do you have a Healthcare Power of Manager Financial? No November 12, 2024 10:47am Do you have a Healthcare Power of Manager Financial? No January 20, 2025 11:26am Chief Complaint [...] section and content) DATE CREATED AUTHOR 03/24/2020 [facility] [employer] ([place]) DATE CREATED AUTHOR AUTHOR'S ORGANIZ ATION 02/10/[address] [facility] Goals (unrecognized section and content) Goals [...] 2025 End: January 12, 2025 Dr. Yanira Braahona MD Attending physician Active Start: January 12, [...] 28, 2025 End: January 28, 2025 Dr. Yaniar Barahona MD Attending physician Active Start: January [...] BE BASED ON THE PRIMARY CLINICAL RECORDS. [facility]. provides no warranty or guarantee of the accuracy or completeness of information in this document.
== END | disposition home or self-care (01) ==
PROVIDERS: PCP Family Medicine; Referring Provider Urology; Visit Provider Urology
DX: N20.0 Calculus of kidney (principal)
CPT/HCPCS: 74176

== ENCOUNTER 2025-03-25 12:22 | Day surgery (SDC) | payer MEDICARE, MEDICAID, SELFPAY ==
--- NOTE | 2025-03-16 13:43 | PAT.ANESEVAL ---
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 When Was Last Pacemaker Check QUESTION #4 FULL TEXT: You/Your Family Experience fever (hyperthermia) with Anesthesia Last Oral Intake Last Oral intake: Last Oral Intake NPO since Meds taken in AM with sips of water? Meds patient instructed to take am of surgery PONV PONV - production team manager: PONV - production team manager Female Yes 03/16/25 13:12 HX of Motion Sickness No 03/16/25 13:12 HX of N/V After Surgery No 03/16/25 13:12 Non-Smoker Yes 03/16/25 13:12 Duration of Surgery greater Yes 03/16/25 13:12 than 60 minutes Number of Risk Factors 3 03/16/25 13:12 PONV Score Moderate Risk 03/16/25 13:12 Height & Weight Height & Weight: Anesthesia: Height & Weight Height 5 ft 02/17/25 15:05 Respiratory Assessment Respiratory Assessment - production team manager: Respiratory Tract Infection Hx - production team manager Hx Respiratory Tract Infection No 03/16/25 13:12 STOP Sleep Apnea STOP Sleep Apnea - production team manager: STOP Sleep Apnea - production team manager Hx Hypertension Yes: CONTROLLED WITH MED 03/16/25 13:12 Hx Sleep Apnea No 03/16/25 13:12 CPAP No 03/16/25 13:12 BIPAP Do you snore loudly (louder No 03/16/25 13:12 than talking or can be heard Do you often feel tired/ No 03/16/25 13:12 fatigued/ sleepy during daytime? Has anyone observed you stop No 03/16/25 13:12 breathing during sleep? STOP Results Negative 03/16/25 13:12 QUESTION #5 FULL TEXT : Do you snore loudly (louder than talking or can be heard through closed doors)? 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 Specify any problems Hx of Preganancy in last 3 No 03/16/25 13:12 Months Nurse Filling Out Transfusion DSCHRIBER 03/16/25 13:12 & Questions: Date: 03/16/25 03/16/25 13:12 Time: 13:13 03/16/25 13:12 Patient unable to answer at this time (ie. confused, unrespo /Reproduction History /Reproductive History - production team manager: /Reproductive Hx- production team manager Hx Now No 03/16/25 13:12 Gestational Age (in weeks): EDC: Hx Hx Para Hx Section SAB No 03/16/25 13:12 Does the father of the baby or his family experience fever w Father of the baby Malignant Hypertension history comment PFSH Medical History Hypertension Osteoporosis Degenerative disc disease Coagulation disorder Presence of pessary Loss of hearing Post-menopausal Bladder disease Arthritis High cholesterol Back pain History of hiatal hernia Gastric reflux History of edema History of echocardiogram Wears glasses History of GI bleed Former smoker Anemia DVT, bilateral lower limbs Home Medications ?Medication ?Instructions ?Recorded ?Last Taken ?Type omeprazole 20 mg delayed 20 mg PO DAILY ##90 07/19/20 01/28/25 06:00 Rx release,disintegrating tablet alendronate 70 mg tablet (Fosamax) 70 mg PO QWEEK 08/12/23 01/27/25 History calcium carbonate (Calcium 600) 600 mg PO DAILY 08/12/23 01/27/25 History cholecalciferol (vitamin D3) 125 125 mcg PO DAILY 08/12/23 01/27/25 History mcg (5,000 unit) capsule amlodipine 5 mg tablet 5 mg PO QHS 11/12/24 01/27/25 History kfbccrzq-geup-zlvk 8 mg-folic 400 1 tab PO DAILY 11/12/24 Unknown History mcg-K 50 mcg-lutein 300 mcg tablet (Centrum Silver Women) rosuvastatin 10 mg tablet 10 mg PO QHS 11/12/24 Unknown History estradiol 0.01% (0.1 mg/gram) 1 g vaginal 3XW 3 months #42.5 11/20/24 Unknown Rx vaginal cream grams Allergy/AdvReac Type Severity Reaction Status Date / Time No Known Allergies Allergy Verified 03/16/25 13:10 Family History Father Hypertension Mother CVA (cerebral vascular accident) Other Cancer Surgical History (Updated 03/16/25 @ 13:16 by Hanny Cowart) Hx of cystoscopy H/O: hysterectomy History of ankle surgery H/O adenoidectomy Hx of colonoscopy History of cataract extraction with lens replacement Hx of tonsillectomy History of ectopic Hx of lithotripsy Hx of bladder repair surgery Social History Smoking Status: Former smoker second hand exposure: No alcohol intake: never substance use type: does not use caffeine: Yes what type of physical activity do you participate in: none frequency: does not exercise do you feel safe at home: Yes Audit: Pertinent Findings Pertinent Findings EKG Perinent findings: 11/2024: NSR w/ nonspecific ST and T wave abn Echo (EF%) pertinent findings: 04/2020: EF 60%, stage 1 diastolic dysfxn Recommendation Anesthesia Recommendation Anesthesia recommendation: OPTIMIZED for anesthesia
[2025-03-25] VITALS (9 sets, daily range): BP systolic 131–149; BP diastolic 74–82; PULSE 60–85; RESP 12–16; TEMP 36–36.5; O2SAT 96–100; BMI 25.0
--- NOTE | 2025-03-25 09:30 | HP.PCM_ITS ---
History and Physical Date of Admission: 03/25/25 Date of Service: 03/16/25 MR#: [id number] Acct: [id number] Name: SUELLEN LONG Rep #: [id number] : 1950 Provider: Dr. Yanira Barahona MD Age/Sex: 74/F Location: [facility] [place] Status: Signed Intake Vital Signs 02/17/2515:05 03/16/2509:24 Height 5 ft 5 ft Weight: 196 lb 196 lb BMI 38.2 38.2 BP 130/89 H 145/97 H Pulse 69 59 L Intake Visit Reasons: pre-op Chief Complaint: pre op Rn Testing Required: No Accompanied by: Self Is patient in pain?: No Allergies No Known Allergies Allergy (Verified 03/16/25 09:31) Medications ?Medication ?Instructions ?Recorded ?Confirmed ?Type omeprazole 20 mg delayed 20 mg PO DAILY ##90 07/19/20 03/16/25 Rx release,disintegrating tablet alendronate 70 mg tablet (Fosamax) 70 mg PO QWEEK 08/12/23 03/16/25 History calcium carbonate (Calcium 600) 600 mg PO DAILY 08/12/23 03/16/25 Histor y cholecalciferol (vitamin D3) 125 125 mcg PO DAILY 08/12/23 03/16/25 Histo ry mcg (5,000 unit) capsule amlodipine 5 mg tablet 5 mg PO QHS 11/12/24 03/16/25 History kjyvlfyt-xmrx-ifem 8 mg-folic 400 1 tab PO DAILY 11/12/24 03/16/25 History mcg-K 50 mcg-lutein 300 mcg tablet (Centrum Silver Women) rosuvastatin 10 mg tablet 10 mg PO QHS 11/12/24 03/16/25 History estradiol 0.01% (0.1 mg/gram) 1 g vaginal 3XW 3 months #42.5 11/20/24 03/16/25 Rx vaginal cream grams Have you fallen in the past year?: No Nurse's Note: patient has leaking PFSH Medical History Hypertension Osteoporosis Degenerative disc disease Coagulation disorder Presence of pessary Loss of hearing Post-menopausal Bladder disease Arthritis High cholesterol Back pain History of hiatal hernia Gastric reflux History of edema History of echocardiogram Wears glasses History of GI bleed Former smoker Anemia DVT, bilateral lower limbs Surgical History Hx of cystoscopy H/O: hysterectomy History of ankle surgery H/O adenoidectomy Hx of colonoscopy History of cataract extraction with lens replacement Hx of tonsillectomy History of ectopic Hx of lithotripsy Hx of bladder repair surgery Family History Father Hypertension Mother CVA (cerebral vascular accident) Other Cancer Social History Smoking Status: Former smoker second hand exposure: No alcohol intake: never substance use type: does not use caffeine: Yes what type of physical activity do you participate in: none frequency: does not exercise do you feel safe at home: Yes Questionnaire Social Determinants of Health* SDOH Screening Social determinants of health last assessed in clinic: 03/16/25 Will the patient participate in the screening?: Yes Do you worry about having a steady place to live?: No In the past 12 months, have you had to go without electric, gas, oil or water in your home?: No Have you or anyone in your house had to go without enough food to eat?: No Has lack of reliable transportaion kept you from medical appts or from doing things needed for daily living?: No Has anyone in your support network made you feel unsafe for any reason?: No Does the patient want assistance with any of the above?: No HPI HPI Urology Chief Complaint: pre op Details: SUELLEN LONG, is a 74 F. The patient is here for preoperative history and physical prior to left renal extracorporal shockwave lithotripsy. There are no new symptoms since the last visit. The procedure, recovery and expectations were explained. The risks, benefits and alternatives were discussed, including but not limited to, the risks of anesthesia, bleeding, infection, injury, pain and the need for further intervention. A joint decision was made at this time to proceed with the scheduled surgery/procedure as indicated on the consent form. ROS Const Constitutional: No chills, fatigue, fever(s), headache(s), night sweats, weakness, weight change, abnormal sleep pattern or change in appetite Eyes Eyes: No change in vision ENT ENT: No headache(s) or dry mouth Resp Respiratory: No cough, chest congestion, shortness of breath or wheezing Cardio Cardiology: Positive for other (No chest pain.); No shortness of breath, irregular heart rhythm or lightheadedness Gastro GI: Positive for other (No nausea.); No abdominal pain, change in bowel habits, constipation, diarrhea or vomiting Musc Musculoskeletal: No abnormal gait Skin Skin: No yellowing of the eye, lesions, itchy eyes, rash or skin ulcer Neuro Neurology: No abnormal gait, confusion, dizziness, weakness, headache(s) or memory loss Psych Psychiatric: No abnormal sleep pattern, No change in appetite, No confusion and No memory loss Endo Endocrine: No fatigue, increased thirst/drinking or weight change Aller/Imm Allergy/Immunologic: No itchy eyes or wheezing Ryne/Lymp Hematologic/Lymphatic: No easy bleeding, easy bruising or enlarged lymph nodes Exam Const General: cooperative, healthy appearing, comfortable and no acute distress [facility] Head: normocephalic and atraumatic Ears: hearing grossly normal bilaterally and external ears normal Nose: external nose normal Eyes General: appearance normal, both eyes and all related structures Neck Neck: normal visual inspection and trachea midline Chest Chest palpation & inspection: normal inspection of the chest Resp Effort & Inspection: normal respiratory effort, able to speak in complete sentences and symmetric chest movement Cardio Rate: regular rate GI Inspection: normal to inspection Palpation: soft and nontender General: No CVA tenderness Skin General: no rashes or lesions noted Neuro General: patient alert, patient awake, patient oriented x3 and CN's II-XI intact bilaterally Extrem General: normal to inspection Psych Appearance: grossly normal and well kempt Mental Status: mental status grossly normal Results POC Urinalysis w/Micro Office Urine Color ? Last Edit by Aicha Cano on 03/16/25 09:39 Office Urine Clarity ? Last Edit by Aicha Cano on 03/16/25 09:39 Office Urine Glucose Negative Last Edit by Aicha Cano on 03/16/25 09:39 Office Urine Ketones Negative Last Edit by Aicha Cano on 03/16/25 09:39 Office Urine Bilirubin Negative Last Edit by Aicha Cano on 03/16/25 09:39 Office Urine Urobilinogen 0.2 mg/dL Last Edit by Benitojefferyletitia Dawkinsten on 03/16/25 09:39 Off Ur Spec [place] 1.015 Last Edit by Aicha Cano on 03/16/25 09:39 Office Urine pH 6 Last Edit by Aicha Cano on 03/16/25 09:39 Office Urine Protein 1+ Last Edit by Aicha Cano on 03/16/25 09:39 Office Urine Blood Large Last Edit by Aicha Cano on 03/16/25 09:39 Office Urine Blood Hemolyzed Negative Last Edit by Aicha Cano on 03/16/25 09:39 Office Urine Nitrate Negative Last Edit by Aicha Cano on 03/16/25 09:39 Off Ur Leukocytes Positive Last Edit by Aicha Cano on 03/16/25 09:39 Off Ur WBC Microscopic ? Last Edit by Aicha Cano on 03/16/25 09:39 Off Ur RBC Microscopic ? Last Edit by Aicha Cano on 03/16/25 09:39 Off Ur Bacteria Microscopic ? Last Edit by Benitoconstance Cano on 03/16/25 09:39 andreas [email or web address] Coding Level of Care Code Off vis,est,level 4 Diagnoses Kidney stones N20.0 Urinary tract infection N39.0 Vaginal atrophy N95.2 Cystocele, midline N81.11 Urinary frequency R35.0 Additional Codes Intake - Is patient in pain?: No (1126F) SDOH Screening - Does the patient want assistance with any of the above?: No (G0136) Assessment and Plan Assessment and Plan (1) Kidney stones: Status: Acute (2) Urinary tract infection: Status: Acute (3) Vaginal atrophy: Status: Acute (4) Cystocele, midline: Status: Acute (5) Urinary frequency: Status: Acute Orders: Orders POC UA Automated w/Microscopy Today R35.0 - Frequency of micturition Plan Urine culture Proceed with surgical intervention as scheduled Clinical Quality Measures Falls Risk Screening/Assistive Devices Have you fallen in the past year?: No 03/16/25 1021 <Electronically signed by Yanira Barahona MD> Date Yanira Barahona MD
--- NOTE | 2025-03-25 09:31 | EX.PCM.DISCH ---
Discharge Instructions Diet Discharge Diet: No restrictions Activity Discharge Activity: Return to Normal Activity Dressing / Incision Call your doctor if you observe: Fever of 101 or Higher, Inability to urinate, Inability to have a bowel movement, Chest pain and Calf discomfort Follow Up Care Please Follow Up With: Yanira Barahona MD Test Results: Test results from this visit will be discussed in further detail at your follow-up appointment, if applicable. Discharge Plan Admission Attending Provider: Yanira Barahona Primary Care Provider: Clyde Linda Instructions Print Language: Yakut Discharge Orders/Prescriptions Prescriptions: New cephalexin 500 mg capsule 500 mg PO Q12 3 Days Qty: 6 0RF ondansetron 4 mg tablet,disintegrating 4 mg PO Q8H PRN (Reason: nausea and vomiting) Qty: 10 0RF Continued alendronate [Fosamax] 70 mg tablet 70 mg PO QWEEK cholecalciferol (vitamin D3) 125 mcg (5,000 unit) capsule 125 mcg PO DAILY calcium carbonate [Calcium 600] 600 mg calcium (1,500 mg) tablet 600 mg PO DAILY estradiol 0.01 % (0.1 mg/gram) cream 1 g vaginal 3XW 90 Days Qty: 42.5 3RF omeprazole 20 MG tablet,disintegrat, delay rel 20 mg PO DAILY Qty: 90 3RF Centrum Silver Women 8 mg iron-400 mcg-50 mcg tablet 1 tab PO DAILY amlodipine 5 mg tablet 5 mg PO QHS rosuvastatin 10 mg tablet 10 mg PO QHS Referrals / Follow Up: Clyde Linda MD [Primary Care Provider, Family Practice] Disposition Disposition (needs filled in before D/C Order can be placed): Home, Self Care
--- NOTE | 2025-03-25 09:32 | OP.PCM_ITS ---
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: No Type of Anesthesia: General RN Documented Start/Stop Times: Operation Date: 03/25/25 14:00 Case Time Into Pre-Op 03/25/25 12:30 Out of Pre-Op 03/25/25 14:11 Anesthesia Start 03/25/25 14:15 Into Room 03/25/25 14:15 Procedure Start 03/25/25 14:23 Procedure End 03/25/25 15:19 Anesthesia End 03/25/25 15:21 Out of Room 03/25/25 15:21 Into Recovery 03/25/25 15:23 Into Phase II Recovery 03/25/25 16:02 Out of Recovery 03/25/25 16:02 Procedure Start Time: 14:23 Procedure Stop Time: 15:19 Select all DRAINS/GRAFTS/IMPLANTS that apply: Drains Drain details: 6 Taiwanese 22 cm JJ stent Estimated Blood Loss: <5cc Specimen collected: No Description of surgery: The patient is a 74-year-old female with a large left renal stone burden who presents for sandwich therapy with shockwave lithotripsy. Informed consent was obtained. The patient was taken to the operating room and placed on the operating room table. Anesthesia monitored the head, neck, airway, IV access and vital signs the case. Once anesthesia was appropriately administered, the left lower pole renal stone was unable to be identified on fluoroscopy. The decision was made to proceed with ureteroscopy. She was placed into dorsolithotomy position and was prepped and draped in usual sterile fashion. The cystoscope was inserted through the urethra under direct visualization into the urinary bladder. The bladder mucosa revealed no evidence of mass, erythema stricture or foreign body. The left ureteral stent was calcified and removed without difficulty. A retrograde pyelogram was performed using an 8 Taiwanese cone-tip catheter and contrast injected in retrograde fashion. Under fluoroscopy the ureter was irregular appearing with potential stones as filling defects. A 0.035 Glidewire was then passed into the ureter. The semirigid ureteroscope was then utilized alongside of the wire to evaluate the ureter. No significant stone was identified within the ureter. The flexible ureteroscope was then placed over a second Glidewire and advanced all the way into the renal pelvis. There were stone fragments identified there and they were broken up with a 200 ?m laser fiber into dust. Once all stone fragments were well fragmen lawson, the entire length of the ureter was directly visualized finding no evidence of remaining stone burden. Because of the tightness of the distal ureter the decision was made to repeat a retrograde pyelogram which continued to reveal ureteral edema or narrowing. The decision was made to utilize the remaining safety wire for placement of a 6 Taiwanese 22 cm stent. There was good positioning of the stent within the renal pelvis and in the urinary bladder. There were no complications during the procedure. Surgical Findings: The majority of the remaining lower pole stone burden had passed since the last imaging. Remaining stone was lasered into small pieces. Distal left ureter edematous at the conclusion of the case. Complications Complications: No Admit VTE Documentation VTE Present on Admission: Yes VTE Mechan Device Prophylaxis: SCD's VTE Pharm Prophylaxis ordered?: No Reason prophylaxis not ordered: Treatment Not Indicated
[2025-03-25] MEDS: Lactated Ringers 1,000 ML 15 ML IV (12:47)
--- NOTE | 2025-03-25 13:16 | PRE.ANES_ITS ---
ASA Classification* ASA Classification ASA Classification: 2 Assessment & Plan Anesthesia* Anesthesia Assessment Anesthesia Assessment: Discussed sedation and/or anesthesia options, risks, benefits, and alternatives with patient/parents/legal guardian/POA. Questions invited. The patient/parents/legal guardian/POA seems to understand and agrees to proceed with anesthesia plan. Reviewed the physical assessment, medical history, allergy history and patient home medications list prior to surgery/procedure/anesthetic and documented any changes. Performed airway and anesthesia risk assessments. Anesthesia Type Anesthesia Type: General History Source History Obtained from:: Patient and Chart Anesthesia Focused Assessment* Temperature: 97.7 F Pulse Rate: 60 Blood Pressure: 149/79 Respiratory Rate: 16 Pulse Ox: 100 Oxygen Delivery Method: Room Air Airway Assessment Mouth opens: >3 cm Mallampati Score: III Teeth Condition: Chipped/Broken (Several chipped and broken teeth.) and Missing (Multiple missing. Nothing loose at the moment.) Neck Range of motion (ROM): Limited ROM (Slight Decrease) Labs Anesthesia Preop lab: CBC WBC, (4.4-11.0) 6.9 K/mm3 01/25/25, 10:48 RBC, (4.2-5.4) 4.57 M/mm3 01/25/25, 10:48 Hgb, (12.0-15.0) 13.5 g/dL 01/25/25, 10:48 Hct, (37-47) 41.4 % 01/25/25, 10:48 Plt Count, (150-450) 340 K/mm3 01/25/25, 10:48 CHEMISTRY Potassium, (3.3-5.1) 3.8 mmol/L 01/25/25, 10:48 Sodium, (133-145) 143 mmol/L 01/25/25, 10:48 Magnesium, (1.5-2.2) 2.2 mg/dL 10/28/24, 14:10 BUN, (4-19) 11 mg/dL 01/25/25, 10:48 Creatinine, (0.70-1.20) 0.60 mg/dL L 01/25/25, 10:48 Glucose, (70-99) 89 mg/dL 01/25/25, 10:48 TSH, (0.358-3.740) 1.030 uIU/mL 01/14/24, 14:41 COAG PT, (11.7-14.9) 13.8 SECONDS 05/01/20, 00:26 Pre-Assessment Diagnosis/Proposed Procedure Planned Operative Procedure(s): ESWL LEFT Anesthesia History 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 When Was Last Pacemaker Check QUESTION #4 FULL TEXT: You/Your Family Experience fever (hyperthermia) with Anesthesia Last Oral Intake Last Oral intake: Last Oral Intake NPO since 20:00 03/25/25 12:42 Meds taken in AM with sips of Yes 03/25/25 12:42 water? Meds patient instructed to take am of surgery Any additional information?: Yes Meds taken in AM with sips of water?: Yes Meds patient instructed to take am of surgery: Omeprazole PONV PONV - retail office manager: PONV - retail office manager Female Yes 03/16/25 13:12 HX of Motion Sickness No 03/16/25 13:12 HX of N/V After Surgery No 03/16/25 13:12 Non-Smoker Yes 03/16/25 13:12 Duration of Surgery greater Yes 03/16/25 13:12 than 60 minutes Number of Risk Factors 3 03/16/25 13:12 PONV Score Moderate Risk 03/16/25 13:12 Height & Weight Height & Weight: Anesthesia: Height & Weight Height 5 ft 03/25/25 12:42 Weight: 58.2 kg 03/25/25 12:42 Body Mass Index (BMI) 25.0 03/25/25 12:42 Respiratory Assessment Respiratory Assessment - retail office manager: Respiratory Tract Infection Hx - retail office manager Hx Respiratory Tract Infection No 03/16/25 13:12 STOP Sleep Apnea STOP Sleep Apnea - retail office manager: STOP Sleep Apnea - retail office manager Hx Hypertension Yes: CONTROLLED WITH MED 03/16/25 13:12 Hx Sleep Apnea No 03/16/25 13:12 CPAP No 03/16/25 13:12 BIPAP Do you snore loudly (louder No 03/16/25 13:12 than talking or can be heard Do you often feel tired/ No 03/16/25 13:12 fatigued/ sleepy during daytime? Has anyone observed you stop No 03/16/25 13:12 breathing during sleep? STOP Results Negative 03/16/25 13:12 QUESTION #5 FULL TEXT : Do you snore loudly (louder than talking or can be heard through closed doors)? 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 Specify any problems Hx of Preganancy in last 3 No 03/16/25 13:12 Months Nurse Filling Out Transfusion DSCHRIBER 03/16/25 13:12 & Questions: Date: 03/16/25 03/16/25 13:12 Time: 13:13 03/16/25 13:12 Patient unable to answer at this time (ie. confused, unrespo /Reproduction History /Reproductive History - retail office manager: /Reproductive Hx- retail office manager Hx Now No 03/16/25 13:12 Gestational Age (in weeks): EDC: Hx Hx Para Hx Section SAB No 03/16/25 13:12 Does the father of the baby or his family experience fever w Father of the baby Malignant Hypertension history comment Active Medications Active Medications: Current Medications Generic Name Dose Route Start Last Admin Trade Name Freq PRN Reason Stop Dose Admin Lactated Ringer's 1,000 mls @ 15 mls/hr 03/25/25 12:45 03/25/25 12:47 IV 15 mls/hr .Q48H HUSAM Administration PFSH Medical History Hypertension Osteoporosis Degenerative disc disease Coagulation disorder Presence of pessary Loss of hearing Post-menopausal Bladder disease Arthritis High cholesterol Back pain History of hiatal hernia Gastric reflux History of edema History of echocardiogram Wears glasses History of GI bleed Former smoker Anemia DVT, bilateral lower limbs Home Medications ?Medication ?Instructions ?Recorded ?Last Taken ?Type omeprazole 20 mg delayed 20 mg PO DAILY ##90 07/19/20 03/25/25 Rx release,disintegrating tablet alendronate 70 mg tablet (Fosamax) 70 mg PO QWEEK 07/2201/27/25 History calcium carbonate (Calcium 600) 600 mg PO DAILY 01/27/25 History cholecalciferol (vitamin D3) 125 125 mcg PO DAILY 07/2201/27/25 History mcg (5,000 unit) capsule amlodipine 5 mg tablet 5 mg PO QHS 11/12/24 5 History rbheipwi-lsjt-joqg 8 mg-folic 400 1 tab PO DAILY 11/12 Unknown History mcg-K 50 mcg-lutein 300 mcg tablet (Centrum Silver Women) rosuvastatin 10 mg tablet 10 mg PO QHS 11/12/24 Unknow n History estradiol 0.01% (0.1 mg/gram) 1 g vaginal 3XW 3 months #42.5 11/20/24 Unknown Rx vaginal cream grams Allergy/AdvReac Type Severity Reaction Status Date / Time No Known Allergies Allergy Verified 03/25/25 12:40 Family History Father Hypertension Mother CVA (cerebral vascular accident) Other Cancer Surgical History Hx of cystoscopy H/O: hysterectomy History of ankle surgery H/O adenoidectomy Hx of colonoscopy History of cataract extraction with lens replacement Hx of tonsillectomy History of ectopic Hx of lithotripsy Hx of bladder repair surgery Social History Smoking Status: Former smoker second hand exposure: No alcohol intake: never substance use type: does not use caffeine: Yes what type of physical activity do you participate in: none frequency: does not exercise do you feel safe at home: Yes Review of Systems (Anesthesia) ROS Narrative System reviewed and no additional complaints, except as documented.
[2025-03-25] MEDS: Cefazolin 1 GM/5 ML Vial 2 GM IV (14:15)
[2025-03-25] MEDS: Lidocaine 1% (5 ml sdv) 5 ML Vial IV (14:23)
[2025-03-25] MEDS: fentaNYL 100 MCG/2 ML Ampul IV (14:34)
--- NOTE | 2025-03-25 15:26 | PCM.POST.ANE ---
Anesthesia: Postop Eval I Current Vital Signs Temperature: 96.8 F Pulse Rate: 85 Blood Pressure: 142/82 Respiratory Rate: 12 Pulse Ox: 97 Oxygen Delivery Method: Room Air Assessment Airway patent: Yes Spontaneous unlabored respirations: Yes Mental status: Awake and Calm nausea: No Vomiting: No Anesthesia Complication: No Fluid Hydration Crystalloid volume administer (ml): 700 Total IV fluid infused: 700 Progress Note Anesthesia document: Postop Eval 1 completed: Yes
--- NOTE | 2025-03-25 16:12 | POSTOPAN2_ITS ---
Anesthesia Postop Eval I Sum Postop Eval Completion status Anesthesia document: Postop Eval 1 completed: Yes Anesthesia Postop Eval I Summary Anesthesia Postop Eval I Summary: Anesthesia Postop Eval I: Assessment Summary Airway patent Yes 03/25/25 15:27 LOW VOLTAGE TECHNICIAN.SHOF Spontaneous unlabored Yes 03/25/25 15:27 LOW VOLTAGE TECHNICIAN.SHOF respirations Mental status Awake,Calm 03/25/25 15:27 LOW VOLTAGE TECHNICIAN.SHOF nausea No 03/25/25 15:27 LOW VOLTAGE TECHNICIAN.SHOF Vomiting No 03/25/25 15:27 LOW VOLTAGE TECHNICIAN.SHOF Anesthesia Postop Eval I: Fluid Summary Crystalloid volume administer 700 03/25/25 15:27 LOW VOLTAGE TECHNICIAN.SHOF (ml) Colloids volume administered ( ml) Blood Product volume administered (ml) Total IV fluid infused 700 03/25/25 15:27 LOW VOLTAGE TECHNICIAN.SHOF Anesthesia Postop Eval I: Summary Notes Anesthesia Complication No 03/25/25 15:27 LOW VOLTAGE TECHNICIAN.SHOF Anesthesia Complication Comment: Post-operative progress note Anesthesia: Postop Eval II Evaluation Mental status: Awake and Calm Pain Level: 0 nausea: No Vomiting: No Complications Anesthesia Complication: No
--- NOTE | 2025-03-25 16:12 | PCM.POSTANE2 ---
Anesthesia Postop Eval I Sum Postop Eval Completion status Anesthesia document: Postop Eval 1 completed: Yes Anesthesia Postop Eval I Summary Anesthesia Postop Eval I Summary: Anesthesia Postop Eval I: Assessment Summary Airway patent Yes 03/25/25 15:27 LOAN OPERATIONS MANAGER.SHOF Spontaneous unlabored Yes 03/25/25 15:27 LOAN OPERATIONS MANAGER.SHOF respirations Mental status Awake,Calm 03/25/25 15:27 LOAN OPERATIONS MANAGER.SHOF nausea No 03/25/25 15:27 LOAN OPERATIONS MANAGER.SHOF Vomiting No 03/25/25 15:27 LOAN OPERATIONS MANAGER.SHOF Anesthesia Postop Eval I: Fluid Summary Crystalloid volume administer 700 03/25/25 15:27 LOAN OPERATIONS MANAGER.SHOF (ml) Colloids volume administered ( ml) Blood Product volume administered (ml) Total IV fluid infused 700 03/25/25 15:27 LOAN OPERATIONS MANAGER.SHOF Anesthesia Postop Eval I: Summary Notes Anesthesia Complication No 03/25/25 15:27 LOAN OPERATIONS MANAGER.SHOF Anesthesia Complication Comment: Post-operative progress note Anesthesia: Postop Eval II Evaluation Mental status: Awake and Calm Pain Level: 0 nausea: No Vomiting: No Complications Anesthesia Complication: No
== END 2025-03-25 16:57 | disposition home or self-care (01) ==
LOC: SDC 12:22 → AC 12:23
PROVIDERS: PCP Family Medicine; Referring Provider Urology; Visit Provider Urology
PROC: (CPT 50590; principal; 2025-03-25 13:50)
DX: N20.0 Calculus of kidney (principal); N39.0 Urinary tract infection, site not specified; N95.2 Postmenopausal atrophic vaginitis; N81.11 Cystocele, midline; I10 Essential (primary) hypertension; E78.00 Pure hypercholesterolemia, unspecified; Z79.899 Other long term (current) drug therapy; Z87.891 Personal history of nicotine dependence
CPT/HCPCS: 52356; 00918; C1769; C2617; J2405